=== PATIENT | male | born 1940 | race Caucasian/White ===

== ENCOUNTER 2016-09-06 13:07 | Inpatient (IN) | payer BC, OTHER ==
[2016-09-06 13:19] VITALS: BMI 28.3
[2016-09-06] MEDS ORDERED: ASPIRIN 81 MG CHEWABLE TABLETS PO ONE (13:33)
[2016-09-06 14:14] LABS: BASOPHIL 0.6 % (0-2.0); MCH 26.2 pg (25.7-33.7); MCHC 31.6 g/dl (32.0-35.9); MEAN CELL VOLUME 82.9 fl (80-96); MEAN PLT VOLUME 8.8 fl (7.5-11.1); NEUTROPHILS 76.8 % (42.8-82.8); PLATELET COUNT 277 K/MM3 (134-434); RDW 17.6 % (11.9-15.9); WHITE BLOOD COUNT 10.2 K/mm3 (4.0-10.0)
[2016-09-06] MEDS ORDERED: ONDANSETRON 4 MG/2 ML VIAL ONE (14:24)
[2016-09-06] MEDS ORDERED: ONDANSETRON 4 MG/2 ML VIAL IVPUSH ONE (14:28)
[2016-09-06 14:43] LABS: INR 2.44 (0.82-1.09); PROTHROMBIN TIME (PATIENT) 27.3 SEC (9.98-11.88)
--- NOTE | 2016-09-06 14:45 | PDOC ---
History of Present Illness - General History Source: Patient, Significant Other Exam Limitations: No Limitations - History of Present Illness Initial Comments: 09/06/16 14:59 The patient is a 76 year old male, with significant past medical history of IDDM , HTN, COPD, Afib (on coumadin), CAD s/p CABG, PAD, end- stage CHF s/p ICD placement (on milrinone pump) , who presents today complaining of SOB, abdominal pain, nausea, and dizziness. The patient had 4 episodes of vomiting while having a workup in Dr. Najera office this morning. He reports abdominal pain that is constant. His last meal was breakfast and tea and felt normal until he arrived to the doctors office. The patients primary is out of office , so his brought him to the emergency room. Denies fever, chills. Denies chest pain, SOB. Allergies: Shellfish Surgical Hx: gallbladder, hernia PCP- [employer] 2Nd Shift: Dr. Garner <Cara Faust - Last Filed: 09/06/16 17:54> - General History Source: Patient Exam Limitations: No Limitations <Nita Cheatham - Last Filed: 09/07/16 12:11> - General Chief Complaint: Nausea/Vomiting Stated Complaint: SOB, VOMITING (CARDIAC) Time Seen by Provider: 09/06/16 13:24 Past History <Cara Faust - Last Filed: 09/06/16 17:54> - Past Medical History Anemia: Yes Asthma: No Cancer: No Cardiac Disorders: Yes (CHF, [place] 2010,defibrilator placement,PACEMAKER) CVA: No COPD: Yes CHF: Yes Dementia: No Diabetes: Yes GI Disorders: No Disorders: Yes (bph) HTN: Yes Hypercholesterolemia: Yes Liver Disease: No Suicide Attempt (Hx): No Seizures: No Thyroid Disease: No - Surgical History Abdominal Surgery: Yes (HERNIA REPAIR 2002) Appendectomy: No Cardiac Surgery: Yes (2 OPEN HEART SURGERIES; TRACH PLACEMENT,PACEMAKER PLACED ) Cholecystectomy: Yes Lung Surgery: No Neurologic Surgery: No Orthopedic Surgery: No - Immunization History Td Vaccination: Yes TDAP Vaccination: Yes Immunization Up to Date: Yes - Psycho/Social/Smoking Cessation Hx Anxiety: No Suicidal Ideation: No Smoking Status: No Smoking History: Former smoker Years of Tobacco Use: 40 Have you smoked in the past 12 months: No Number of Cigarettes Smoked Daily: 40 If you are a former smoker, when did you quit?: 2010 Cigars Per Day: 0 Information on smoking cessation initiated: No 'Breaking Loose' booklet given: 02/06/12 Hx Alcohol Use: No Drug/Substance Use Hx: No Substance Use Type: None Hx Substance Use Treatment: No <LindenNita - Last Filed: 09/07/16 12:11> - Past Medical History Allergies/Adverse Reactions: Allergies Allergy/AdvReac Type Severity Reaction Status Date / Time No Known Drug Allergies Allergy Verified 09/06/16 14:19 shellfish derived Allergy Verified 09/06/16 14:19 Home Medications: Ambulatory Orders Allopurinol [Zyloprim -] 100 mg PO DAILY 09/10/15 Atorvastatin Ca [Lipitor] 40 mg PO HS 09/10/15 Carvedilol 6.25 mg PO BID 09/10/15 Docusate Sodium [Colace -] 100 mg PO BID 09/10/15 Insulin NPL/Insulin Lispro [Humalog Mix 75-25 Vial] 0 unit SQ PRN 09/10/15 Milrinone Lactate/D5w [Milrinone 0.2 mg/ml in D5w] 0 mg IV DAILY 09/10/15 Ranitidine [Zantac -] 75 mg PO DAILY 09/10/15 Torsemide 40 mg PO BID 09/10/15 Albuterol 0.083% Nebulizer Jewell [Ventolin 0.083% Nebulizer Soln -] 1 amp NEB Q6H PRN #120 amp 09/14/15 Nebulizer [Compact Compressor Nebulizer] 1 each MC TID 04/15/16 Acetaminophen [Tylenol .Regular Strength -] 650 mg PO Q6H PRN #0 tablet Ferrous Sulfate [Feosol] 325 mg PO Q48H ud 04/23/16 Potassium Chloride [K-Dur -] 20 meq PO TID #90 tablet.er 04/23/16 Warfarin Na [Coumadin -] 4 mg PO DAILY@1800 09/06/16 Review of Systems - Review of Systems Able to Perform ROS?: Yes Comments:: 09/06/16 15:00 GENERAL/CONSTITUTIONAL: No: fever, chills, weakness, loss of appetite. HEAD, EYES, EARS, NOSE AND THROAT: No: change in vision, ear pain, discharge, sore throat, throat swelling. CARDIOVASCULAR: No: chest pain, lightheadedness, palpitations, syncope RESPIRATORY: No: cough, shortness of breath, wheezing, hemoptysis, stridor. GASTROINTESTINAL: Yes: nausea, vomiting, abdominal pain. No: abdominal cramping , diarrhea, rectal bleeding, constipation. GENITOURINARY: No: dysuria, hematuria, frequency, urgency, flank pain. MUSCULOSKELETAL: No: back pain, neck pain, joint pain, muscle swelling or pain SKIN: No: lesions, pallor, rash or easy bruising. NEUROLOGIC: No: headache, vertigo, paresthesias, weakness ENDOCRINE: No: unexplained weight gain or loss HEMATOLOGIC/LYMPHATIC: No: anemia, easy bleeding, swelling nodes <Cara Faust - Last Filed: 09/06/16 17:54> *Physical Exam - Vital Signs Last Vital Signs Temp Pulse Resp BP Pulse Ox 78 18 104/64 94 L 09/06/16 13:15 09/06/16 13:15 09/06/16 13:15 09/06/16 13:15 - Physical Exam Comments: 09/06/16 15:00 GENERAL: Patient looks uncomfortable. Difficulty laying flat. The patient is in no acute distress. HEAD: Normal with no signs of trauma. EYES: PERRLA, EOMI, sclera anicteric, conjunctiva clear. ENT: Ears normal, nares patent, oropharynx clear without exudates. Moist mucous membranes. NECK: Normal range of motion, supple without lymphadenopathy, JVD, or masses. LUNGS: Breath sounds equal, clear to auscultation bilaterally. No wheezes, and no crackles. HEART:Regular rate and rhythm, normal S1 and S2 without murmur, rub or gallop. ABDOMEN: +Multiple well healed scars on abdomen. Abdominal distention ( according to his ). Epigastric and suprapubic tenderness on palpation. Soft , normoactive bowel sounds. No guarding, no rebound. EXTREMITIES: Normal range of motion, no edema. No clubbing or cyanosis. No erythema, or tenderness. NEUROLOGICAL: Cranial nerves II through XII grossly intact. Normal speech. No focal neurological deficits. MUSCULOSKELETAL: Back nontender to palpation, no CVA tenderness SKIN: Warm, Dry, normal turgor, no rashes or lesions noted. <Cara Faust - Last Filed: 09/06/16 17:54> - Vital Signs Last Vital Signs Temp Pulse Resp BP Pulse Ox 78 18 104/64 94 L 09/06/16 13:15 09/06/16 13:15 09/06/16 13:15 09/06/16 13:15 <Nita Cheatham - Last Filed: 09/07/16 12:11> Heart Score/ECG Review #1 ECG reviewed & interpreted by me at: 15:09 09/06/16 15:09 V-paced at 75bpm <Nita Cheatham - Last Filed: 09/07/16 12:11> ED Treatment Course - LABORATORY CBC & Chemistry Diagram: 09/06/16 14:00 09/06/16 14:00 - ADDITIONAL ORDERS Additional order review: Laboratory Results 09/06/16 09/06/16 14:00 13:50 INR 2.44 H D Lipase 186 09/06/16 14:00 RBC 5.15 MCV 82.9 MCHC 31.6 L RDW 17.6 H MPV 8.8 Neutrophils % 76.8 Lymphocytes % 12.1 Monocytes % 9.5 Eosinophils % 1.0 Basophils % 0.6 - RADIOLOGY Radiograph Interpretation: 09/06/16 15:08 EXAM#: TYPE/EXAM: RESULT: [id number] RAD/CHEST X-RAY PORTABLE* Chest pain. Evaluate for infiltrates. Status post cardiothoracic surgery, replacement of the cardiac valve. Cardiomegaly. Uncoiled thoracic aorta. The lung apices obscured by the soft tissues of the neck. Left pacemaker with 2 intact leads. Right vascular catheter in place. No evidence of pneumothorax. Vascular congestion. Clinically correlate for congestive heart failure. Impression. Vascular congestion. Clinically correlate for CHF. No evidence of pneumothorax. Limited evaluation of the lung parenchyma in the left retrocardiac region. Reported By: Gagan Huber MD 09/06/16 [id number] EXAM#: TYPE/EXAM: RESULT: [id number] CT/ABDOMEN PELVIS CT W/O CONTR Epigastric and periumbilical pain CT scan of the abdomen pelvis without oral and intravenous contrast Coronal and sagittal reformatted images were obtained Compared to prior CT scan of the chest dated 06/07/2013 There are bibasal atelectatic changes and interstitial thickening. Mild cardiomegaly is present. A small hiatus hernia is present. The stomach is partially distended without thickening of its wall. Evaluation of the liver, spleen and both adrenal glands appear unremarkable. Both kidneys are within normal limits in size with a partially exophytic cyst in midportion of the right kidney, posteriorly measuring 2.2 cm and mild deformity of the left renal lateral contour measuring 1.7 cm for which further evaluation with renal ultrasound is needed to rule out a cystic versus solid lesion. Gallbladder is not visualized. The pancreas is within normal limits in size. There is a focal low-attenuation density in the pancreatic body measuring 9 mm for which further evaluation is needed. There is no evidence of small bowel obstruction or enlarged retroperitoneal lymph nodes. No free fluid or free air in the abdomen and pelvis. Normal stool burden in the colon without wall thickening areas moderate distention of the urinary bladder with a lobulated contour and suggestion of a large diverticulum on the right side measuring 11 x 7 cm and a smaller one on the left measuring 4.3 cm. Normal size prostate gland with benign-appearing calcifications. Perirectal and pericecal fat is clear. The appendix is not definitely identified. Small calcified plaques in the abdominal aorta down through its bifurcation. Grade 1 anterolisthesis of L5 over S1 with degenerative vacuum phenomena. Impression: Right renal cyst seen on prior renal ultrasound dated 11/01/2012. Deformity of the left renal lateral contour for which further evaluation with ultrasound is needed to assess for a cystic versus solid lesion. 9 mm low-attenuation density in the pancreatic body that was possibly partially included on prior CT scan of the chest dated 06/07/2013. Correlation with MRI of the pancreas is needed to assess for a cystic versus solid lesion. Moderately distended urinary bladder with suggestion of large diverticula Otherwise, no CT evidence of an acute process in the abdomen and pelvis. Reported By: Dk Collazo MD 09/06/16 3645 - Medications Given in the ED: ED Medications Discontinued Medications Generic Name Dose Route Start Last Admin Trade Name Freq PRN Reason Stop Dose Admin Aspirin 162 mg 09/06/16 13:33 09/06/16 14:27 Asa - PO 09/06/16 13:34 Not Given ONCE ONE Ondansetron HCl 4 mg 09/06/16 14:28 09/06/16 14:28 Zofran Injection IVPUSH 09/06/16 14:29 4 mg NOW ONE Administration <Cara Faust - Last Filed: 09/06/16 17:54> - LABORATORY CBC & Chemistry Diagram: 09/07/16 05:35 09/07/16 05:35 - ADDITIONAL ORDERS Additional order review: 09/06/16 14:00 RBC 5.15 MCV 82.9 MCHC 31.6 L RDW 17.6 H MPV 8.8 Neutrophils % 76.8 Lymphocytes % 12.1 Monocytes % 9.5 Eosinophils % 1.0 Basophils % 0.6 - RADIOLOGY Radiology Studies Ordered: Category Date Time Status CHEST X-RAY PORTABLE* [RAD] Stat Radiology 09/06/16 13:34 Completed - Medications Given in the ED: ED Medications Discontinued Medications Generic Name Dose Route Start Last Admin Trade Name Freq PRN Reason Stop Dose Admin Aspirin 162 mg 09/06/16 13:33 09/06/16 14:27 Asa - PO 09/06/16 13:34 Not Given ONCE ONE Ondansetron HCl 4 mg 09/06/16 14:28 09/06/16 14:28 Zofran Injection IVPUSH 09/06/16 14:29 4 mg NOW ONE Administration <Nita Cheatham - Last Filed: 09/07/16 12:11> Medical Decision Making - Medical Decision Making 09/06/16 14:44 A portion of this note was documented by scribe services under my direction. I have reviewed the details of the note, within reason, and agree with the documentation with the following case summary and management plan written by me. Nursing documentation reviewed and incorporated into medical decision making This pt is a 76 yo M h/o IDDM, HTN, COPD, Afib (on coumadin), CAD s/p CABG, PAD , end- stage CHF s/p ICD placement (on milrinone pump) , who presents today complaining of SOB, abdominal pain, nausea, and dizziness. Repeated episodes of vomiting and diarrhea He reports abdominal pain that is constant, located in the middle of the abdomen. 09/06/16 16:43 Laboratory Tests 04/25/16 04/25/16 09/06/16 05:48 05:48 13:50 WBC 7.8 Hgb 11.9 Hct 37.3 Plt Count 194 INR 1.74 H Sodium Potassium Chloride Carbon Dioxide BUN Creatinine Random Glucose Creatine Kinase Troponin I Lipase 186 09/06/16 09/06/16 09/06/16 14:00 14:00 14:00 WBC 10.2 H D Hgb 13.5 D Hct 42.7 Plt Count 277 D INR 2.44 H D Sodium 140 Potassium 3.2 L Chloride 96 L Carbon Dioxide 37 H BUN 68 H D Creatinine 2.6 H D Random Glucose 123 H D Creatine Kinase 57 Troponin I 0.03 Lipase 09/06/16 16:55 Labs demonstrate renal insufficiency CT pending Will hold on aggressive hydration (As pt CXR demonstrates CHF)\ 09/06/16 17:31 CT of the abdomen and pelvis: 09/06/16 17:34 Small hiatal hernia Exophytic cyst in the midportion of the right kidney, mild deformity of the left kidney, patient is an ultrasound. Patient is within normal limits. Low attenuation density in the pancreatic body measuring 9 mm no evidence of SBO. Normal stool burning bladder is lobulated suggestive of a large diverticulum. Patient seen in the ER by Dr. Downey. Will admit to telemetry. <Nita Cheatham - Last Filed: 09/07/16 12:11> *DC/Admit/Observation/Transfer - Attestations Scribe Attestion: 09/06/16 15:00 Documentation prepared by RUFINA Coburn, acting as medical recruiter for Nita Cheatham MD. <Cara Faust - Last Filed: 09/06/16 17:54> - Discharge Dispostion Admit: Yes <Nita Cheatham - Last Filed: 09/07/16 12:11> Diagnosis at time of Disposition: Renal insufficiency Vomiting Qualifiers: Vomiting type: unspecified Vomiting Intractability: non-intractable Nausea presence: with nausea Qualified Code(s): R11.2 - Nausea with vomiting, unspecified - Discharge Dispostion Condition at time of disposition: Stable - Referrals
[2016-09-06 14:58] LABS: ALBUMIN 3.7 g/dl (3.4-5.0); CALCIUM 9.4 mg/dL (8.5-10.1); CREATININE 2.6 mg/dL (0.7-1.3); MAGNESIUM 2.8 mg/dL (1.8-2.4)
[2016-09-06 15:02] LABS: BILIRUBIN,TOTAL 0.7 mg/dL (0.2-1.0); TOT PROT 8.3 g/dl (6.4-8.2); TROPONIN I 0.03 ng/ml (0.00-0.05)
--- NOTE | 2016-09-06 18:21 | EKG ---
Test Reason : Blood Pressure : / mmHG Vent. Rate : 075 BPM Atrial Rate : 072 BPM P-R Int : 000 ms QRS Dur : 190 ms QT Int : 528 ms P-R-T Axes : 000 254 047 degrees QTc Int : 589 ms Ventricular-paced rhythm ABNORMAL ECG WHEN COMPARED WITH ECG OF 15-APR-2016 13:51, NO SIGNIFICANT CHANGE WAS FOUND Confirmed by MONA OVALLES MD ([id number]) on 09/06/2016 6:20:38 PM Referred By: Confirmed By:MONA OVALLES MD
[2016-09-06] MEDS ORDERED: ACETAMINOPHEN 325 MG TABLET (FP) PO PRN (19:10)
[2016-09-06] MEDS ORDERED: ONDANSETRON 4 MG/2 ML VIAL IVPB PRN (19:19)
--- NOTE | 2016-09-06 19:29 | HP ---
Admitting History and Physical - Admission Chief Complaint: nausea, vomiting - Past Medical History Cardiovascular: Yes: AFIB, CAD, CHF, HTN, Hyperlipdemia, [place], Pulmonary Hypertension, Other (AICD placed) Pulmonary: Yes: COPD, O2 Dependent Renal/: Yes: Renal Inusuff, BPH Endocrine: Yes: Diabetes Mellitus - Past Surgical History Past Surgical History: Yes: AICD, CABG, Hernia Repair - Smoking History Smoking history: Former smoker Have you smoked in the past 12 months: No Aproximately how many cigarettes per day: 40 If you are a former smoker, when did you quit?: 2010 - Alcohol/Substance Use Hx Alcohol Use: No - Social History ADL: Independent History of Recent Travel: No Home Medications - Allergies Allergies/Adverse Reactions: Allergies Allergy/AdvReac Type Severity Reaction Status Date / Time No Known Drug Allergies Allergy Verified 09/06/16 14: shellfish derived Allergy Verified 09/06/16 14:19 - Home Medications Home Medications: Ambulatory Orders Allopurinol [Zyloprim -] 100 mg PO DAILY 09/10/15 Atorvastatin Ca [Lipitor] 40 mg PO HS 09/10/15 Carvedilol 6.25 mg PO BID 09/10/15 Docusate Sodium [Colace -] 100 mg PO BID 09/10/15 Insulin NPL/Insulin Lispro [Humalog Mix 75-25 Vial] 0 unit SQ PRN 09/10/15 Milrinone Lactate/D5w [Milrinone 0.2 mg/ml in D5w] 0 mg IV DAILY 09/10/15 Ranitidine [Zantac -] 75 mg PO DAILY 09/10/15 Torsemide 40 mg PO BID 09/10/15 Albuterol 0.083% Nebulizer Jewell [Ventolin 0.083% Nebulizer Soln -] 1 amp NEB Q6H PRN #120 amp 09/14/15 Nebulizer [Compact Compressor Nebulizer] 1 each MC TID 04/15/16 Acetaminophen [Tylenol .Regular Strength -] 650 mg PO Q6H PRN #0 tablet Ferrous Sulfate [Feosol] 325 mg PO Q48H ud 04/23/16 Potassium Chloride [K-Dur -] 20 meq PO TID #90 tablet.er 04/23/16 Warfarin Na [Coumadin -] 4 mg PO DAILY@1800 09/06/16 Family Disease History - Family Disease History Family Disease History: Diabetes: Father, Heart Disease: Father Physical Examination Vital Signs: Vital Signs Temperature 97.9 F 09/06/16 19:17 Pulse Rate 75 09/06/16 19:17 Respiratory Rate 18 09/06/16 19:17 Blood Pressure 98/57 09/06/16 19:17 O2 Sat by Pulse Oximetry (%) 96 09/06/16 19:17
[2016-09-06] MEDS ORDERED: D5W IV SCH (19:30)
[2016-09-06] MEDS ORDERED: [UNRECOGNIZED DRUG - OTHER] IV SCH (19:30)
[2016-09-06] MEDS ORDERED: MILRINONE LACTATE IV SCH (19:30)
[2016-09-06] MEDS: ATORVASTATIN CA 40 MG TABLET (FP) PO SCH (21:51)
[2016-09-06] MEDS: DOCUSATE SODIUM 100 MG CAPSULE (FP) PO SCH (21:51)
[2016-09-06] MEDS: POTASSIUM CHLORIDE TABS 20 MEQ TABLET.ER (FP) PO SCH (21:52)
[2016-09-06] MEDS: CARVEDILOL 6.25 MG TABLET (FP) PO SCH (21:52)
[2016-09-06] MEDS ORDERED: WARFARIN NA 2 MG TABLET (UD) PO ONE (22:16)
--- NOTE | 2016-09-06 22:25 | HP ---
Admitting History and Physical - Admission Chief Complaint: N/V, abd pain History of Present Illness: 76 yo male, h/o end-stage CHF, on milrinone pump, presents to hospital with nausea and vomiting which began earlier today. Havign abdominal pain as well. Patient was feeling well this morning upon awakening. No diarrhea recently. Went to routine appt at package reins[facility] office, where e became ill, vomiting multiple times, where abd pain began. Currently feeling a little better, no pain now. Had CT scan, which did not show any acute abd process present. no fevers noted. History Source: Patient, Family Member, Medical Record Limitations to Obtaining History: No Limitations - Past Medical History Cardiovascular: Yes: AFIB, CAD, CHF, HTN, Hyperlipdemia, [place], Pulmonary Hypertension, Other (AICD placed) Pulmonary: Yes: COPD, O2 Dependent Renal/: Yes: Renal Inusuff, BPH Endocrine: Yes: Diabetes Mellitus - Past Surgical History Past Surgical History: Yes: AICD, CABG, Hernia Repair - Smoking History Smoking history: Former smoker Have you smoked in the past 12 months: No Aproximately how many cigarettes per day: 40 If you are a former smoker, when did you quit?: 2010 - Alcohol/Substance Use Hx Alcohol Use: No - Social History ADL: Independent History of Recent Travel: No Home Medications - Allergies Allergies/Adverse Reactions: Allergies Allergy/AdvReac Type Severity Reaction Status Date / Time No Known Drug Allergies Allergy Verified 09/06/16 14:19 shellfish derived Allergy Verified 09/06/16 14:19 - Home Medications Home Medications: Ambulatory Orders Allopurinol [Zyloprim -] 100 mg PO DAILY 09/10/15 Atorvastatin Ca [Lipitor] 40 mg PO HS 09/10/15 Carvedilol 6.25 mg PO BID 09/10/15 Docusate Sodium [Colace -] 100 mg PO BID 09/10/15 Insulin NPL/Insulin Lispro [Humalog Mix 75-25 Vial] 0 unit SQ PRN 09/10/15 Milrinone Lactate/D5w [Milrinone 0.2 mg/ml in D5w] 0 mg IV DAILY 09/10/15 Ranitidine [Zantac -] 75 mg PO DAILY 09/10/15 Torsemide 40 mg PO BID 09/10/15 Albuterol 0.083% Nebulizer Jewell [Ventolin 0.083% Nebulizer Soln -] 1 amp NEB Q6H PRN #120 amp 09/14/15 Nebulizer [Compact Compressor Nebulizer] 1 each MC TID 04/15/16 Acetaminophen [Tylenol .Regular Strength -] 650 mg PO Q6H PRN #0 tablet Ferrous Sulfate [Feosol] 325 mg PO Q48H ud 04/23/16 Potassium Chloride [K-Dur -] 20 meq PO TID #90 tablet.er 04/23/16 Warfarin Na [Coumadin -] 4 mg PO DAILY@1800 09/06/16 Family Disease History - Family Disease History Family Disease History: Diabetes: Father, Heart Disease: Father Review of Systems - Review of Systems Constitutional: denies: Fever, Loss of Appetite, Unintentional Wgt. Loss Eyes: reports: No Symptoms HENT: denies: Difficult Swallowing, Throat Pain Neck: denies: Decreased ROM, Tenderness Cardiovascular: reports: Shortness of Breath ((baseline FREIRE)). denies: Chest Pain Respiratory: denies: Cough, Wheezing Gastrointestinal: denies: Constipation, Diarrhea Genitourinary: denies: Burning, Discharge, Dysuria Musculoskeletal: denies: Back Pain Integumentary: reports: Other (recent cellulitis treatment of legs) Physical Examination Vital Signs: Vital Signs Temperature 96.6 F L 09/06/16 21:14 Pulse Rate 75 09/06/16 21:14 Respiratory Rate 20 09/06/16 21:14 Blood Pressure 109/59 09/06/16 21:14 O2 Sat by Pulse Oximetry (%) 96 09/06/16 19:17 Constitutional: Yes: Well Nourished, No Distress, Calm Eyes: Yes: Conjunctiva Clear, EOM Intact, PERRL HENT: Yes: Atraumatic, Normocephalic Neck: Yes: Supple, Trachea Midline Cardiovascular: Yes: Regular Rate and Rhythm, S1, S2 Respiratory: Yes: Regular, Diminished (at bases) Gastrointestinal: Yes: Normal Bowel Sounds, Soft. No: Tenderness Edema: Yes Edema: LLE: Trace, RLE: Trace Neurological: Yes: Alert, Oriented Labs: Laboratory Tests 09/06/16 09/06/16 09/06/16 13:50 14:00 14:00 WBC 10.2 H D RBC 5.15 Hgb 13.5 D Hct 42.7 MCV 82.9 MCHC 31.6 L RDW 17.6 H Plt Count 277 D MPV 8.8 Neutrophils % 76.8 Lymphocytes % 12.1 Monocytes % 9.5 Eosinophils % 1.0 Basophils % 0.6 INR 2.44 H D Sodium Potassium Chloride Carbon Dioxide Anion Gap BUN Creatinine Creat Clearance w eGFR Random Glucose Calcium Magnesium Total Bilirubin AST ALT Alkaline Phosphatase Creatine Kinase Troponin I Total Protein Albumin Lipase 186 09/06/16 14:00 WBC RBC Hgb Hct MCV MCHC RDW Plt Count MPV Neutrophils % Lymphocytes % Monocytes % Eosinophils % Basophils % INR Sodium 140 Potassium 3.2 L Chloride 96 L Carbon Dioxide 37 H Anion Gap 7 L BUN 68 H D Creatinine 2.6 H D Creat Clearance w eGFR 23.99 Random Glucose 123 H D Calcium 9.4 Magnesium 2.8 H D Total Bilirubin 0.7 AST 19 D ALT 15 Alkaline Phosphatase 148 H D Creatine Kinase 57 Troponin I 0.03 Total Protein 8.3 H Albumin 3.7 Lipase Imaging - Results Chest X-ray: Report Reviewed (congestive changes) Cat Scan: Report Reviewed (abd/pelv: no colitis or acute intestinal process noted -renal cysts seen, pancreatic density seen) Problem List - Problems (1) Vomiting Assessment/Plan: -gastoenteritis? -zofran prn, clear liquid diet (no abd pain now) Code(s): R11.10 - VOMITING, UNSPECIFIED Qualifiers: Vomiting type: unspecified Vomiting Intractability: non-intractable Nausea presence: with nausea Qualified Code(s): R11.2 - Nausea with vomiting, unspecified (2) Acute on chronic renal insufficiency Assessment/Plan: -difficult to give IV fluids due to end-stage cardiomyopathy -will hold torsemide for a few doses, renal consult Code(s): N28.9 - DISORDER OF KIDNEY AND URETER, UNSPECIFIED N18.9 - CHRONIC KIDNEY DISEASE, UNSPECIFIED (3) Atrial fibrillation Assessment/Plan: -cont coumadin (INR therapeutic) Code(s): I48.91 - UNSPECIFIED ATRIAL FIBRILLATION Qualifiers: Atrial fibrillation type: chronic Qualified Code(s): I48.2 - Chronic atrial fibrillation (4) Cardiomyopathy Assessment/Plan: -cont milrinone pump Code(s): I42.9 - CARDIOMYOPATHY, UNSPECIFIED (5) Chronic kidney disease (CKD) stage G3a/A3, moderately decreased glomerular filtration rate (GFR) between 45-59 mL/min/1.73 square meter and albuminuria creatinine ratio greater than 300 mg/g Assessment/Plan: Usual Cr approx. 2.0 Code(s): N18.3 - CHRONIC KIDNEY DISEASE, STAGE 3 (MODERATE)
[2016-09-06] MEDS: MILRINONE 20MG/100ML IVPB - 100 ML IVPB SCH (22:39)
[2016-09-07] MEDS: TORSEMIDE 20 MG TABLET (FP) PO SCH ×2 (06:13→13:58)
[2016-09-07] MEDS: POTASSIUM CHLORIDE TABS 20 MEQ TABLET.ER (FP) PO SCH ×3 (06:14→22:55)
[2016-09-07 07:26] LABS: BASOPHIL 0.5 % (0-2.0); MCH 26.7 pg (25.7-33.7); MCHC 32.2 g/dl (32.0-35.9); MEAN CELL VOLUME 82.9 fl (80-96); NEUTROPHILS 67.4 % (42.8-82.8); PLATELET COUNT 235 K/MM3 (134-434); RDW 17.2 % (11.9-15.9)
[2016-09-07 07:47] LABS: INR 2.81 (0.82-1.09); PROTHROMBIN TIME (PATIENT) 31.6 SEC (9.98-11.88)
[2016-09-07 08:13] LABS: ALBUMIN 3.4 g/dl (3.4-5.0); CALCIUM 8.9 mg/dL (8.5-10.1)
[2016-09-07 08:15] LABS: BILIRUBIN,TOTAL 0.6 mg/dL (0.2-1.0); CREATININE 2.5 mg/dL (0.7-1.3); TOT PROT 7.3 g/dl (6.4-8.2)
[2016-09-07] MEDS: MILRINONE 20MG/100ML IVPB - 100 ML IVPB SCH ×2 (09:28→21:00)
[2016-09-07] MEDS: RANITIDINE HCL 150 MG TABLET (FP) PO SCH (09:29)
[2016-09-07] MEDS: DOCUSATE SODIUM 100 MG CAPSULE (FP) PO SCH ×2 (09:29→22:55)
[2016-09-07] MEDS: CARVEDILOL 6.25 MG TABLET (FP) PO SCH ×2 (09:29→22:55)
[2016-09-07] MEDS ORDERED: FERROUS SO4 325 MG TABLET (FP) PO SCH (10:00)
--- NOTE | 2016-09-07 10:05 | PN ---
Progress Note, Physician Chief Complaint: Mr Perez says he is feeling better today. Nausea/vomiting and pain resolved. No cp or sob. - Current Medication List Current Medications: Active Medications Acetaminophen (Tylenol -) 650 mg PO Q6H PRN PRN Reason: FEVER OR PAIN Albuterol Sulfate (Ventolin 0.083% Nebulizer Soln -) 1 amp NEB Q6H PRN PRN Reason: SHORT OF BREATH/WHEEZING Atorvastatin Calcium (Lipitor -) 40 mg PO HS [facility] Last Admin: 09/06/16 21:51 Dose: 40 mg Carvedilol (Coreg -) 6.25 mg PO BID [facility] Last Admin: 09/07/16 09:29 Dose: 6.25 mg Docusate Sodium (Colace -) 100 mg PO BID [facility] Last Admin: 09/07/16 09:29 Dose: 100 mg Ferrous Sulfate (Feosol -) 325 mg PO Q48H [facility] Last Admin: 09/07/16 09:30 Dose: 325 mg Milrinone Lactate/Dextrose (Milrinone 20mg/100ml Ivpb -) 100 mls @ 9.954 mls/ hr IVPB TITR [facility]; 0.35 MCG/KG/MIN PRN Reason: Protocol Last Admin: 09/07/16 09:28 Dose: 10.2 mls/hr Ondansetron HCl (Zofran Injection) 4 mg IVPB Q6H PRN PRN Reason: NAUSEA Potassium Chloride (K-Dur -) 20 meq PO TID [facility] Last Admin: 09/07/16 06:14 Dose: 20 meq Ranitidine HCl (Zantac -) 75 mg PO DAILY [facility] Last Admin: 09/07/16 09:29 Dose: 75 mg Torsemide (Demadex -) 40 mg PO BIDLASIX [facility] Last Admin: 09/07/16 06:13 Dose: 40 mg Warfarin Sodium (Coumadin -) 4 mg PO DAILY@1800 [facility] - Objective Vital Signs: Vital Signs Temperature 97.0 F L 09/07/16 08:02 Pulse Rate 75 09/07/16 08:02 Respiratory Rate 20 09/07/16 08:02 Blood Pressure 110/58 09/07/16 08:02 O2 Sat by Pulse Oximetry (%) 96 09/06/16 21:00 Constitutional: Yes: Well Nourished, No Distress, Calm Cardiovascular: Yes: Regular Rate and Rhythm. No: Gallop, Murmur, Rub Respiratory: Yes: Regular, CTA Bilaterally. No: Rales, Rhonchi, Wheezes Gastrointestinal: Yes: Normal Bowel Sounds, Soft. No: Distention, Tenderness Extremities: Yes: WNL Edema: No Labs: CBC, BMP 09/07/16 05:35 09/07/16 05:35 INR, PTT INR 2.81 (0.82-1.09) H 09/07/16 05:35 Problem List - Problems (1) Gastroenteritis Assessment/Plan: -resolved -suspect viral or other non-specific pathology -will advance diet and see if can tolerate -possible discharge today or early tomorrow pending consultants recommendations Code(s): K52.9 - NONINFECTIVE GASTROENTERITIS AND COLITIS, UNSPECIFIED (2) CKD (chronic kidney disease) Assessment/Plan: -nephrology consulted -creatinine increased since last admission, but unsure of outpatient measurements -will d/w nephrology Code(s): N18.9 - CHRONIC KIDNEY DISEASE, UNSPECIFIED Qualifiers: Chronic kidney disease stage: unspecified stage Qualified Code(s): N18.9 - Chronic kidney disease, unspecified (3) AICD (automatic cardioverter/defibrillator) present Assessment/Plan: -not firing, no problems Code(s): Z95.810 - PRESENCE OF AUTOMATIC (IMPLANTABLE) CARDIAC DEFIBRILLATOR (4) CHF (congestive heart failure) Assessment/Plan: -continue milrinone gtt Code(s): I50.9 - HEART FAILURE, UNSPECIFIED Qualifiers: Congestive heart failure type: systolic Congestive heart failure chronicity: chronic Qualified Code(s): I50.22 - Chronic systolic (congestive ) heart failure (5) Renal mass Assessment/Plan: -seen on CT scan -will obtain renal ultrasound to further evaluate Code(s): N28.89 - OTHER SPECIFIED DISORDERS OF KIDNEY AND URETER (6) Pancreatic mass Assessment/Plan: -seen on CT scan -appears to been seen on previous CT scan of chest, but size not characterized -unsure if growing -cannot obtain MRCP secondary to AICD or CT scan with contrast -since small, will set up outpatient GI consult for EUS Code(s): K86.9 - DISEASE OF PANCREAS, UNSPECIFIED
--- NOTE | 2016-09-07 10:18 | CONSULT ---
Cardiology Consult (text) - Consultation Consultation Note: cc: n/v/abd pain hpi: 76 year old gentleman with PMH of IDDM, COPD (O2 dependant) HTN, HLD, Afib (on coumadin), CAD s/p CABG 2012, end stage CHF with ICD placement (on milrinone pump), PVD, BPH here with n/v/abd pain. Had been feeling well until yesterday when sitting in medical scientific officer's office for routine f/u and developed nausea and vomiting and abd pain. Brought to ER, thought to have gastroenteritis. Overnight sxs resolved and pt feels well now. No cp, sob, palps, dizzy, loc, pnd, orthopnea, le edema. Sees dr boyd for cardio. Past Medical History/Surg hx: per hpi, additionally hernia repair Soc hx: Former smoker, no etoh or illicits fam hx: brother with pvd ros: per hpi; no fever, cough, nasal congestion, rash, ricks, vision changes, wt loss, gib, hematuria meds: Medication Instructions Recorded Allopurinol [Zyloprim -] 100 mg PO DAILY 09/10/15 Atorvastatin Ca [Lipitor] 40 mg PO HS 09/10/15 Carvedilol 6.25 mg PO BID 09/10/15 Docusate Sodium [Colace -] 100 mg PO BID 09/10/15 Insulin NPL/Insulin Lispro 0 unit SQ PRN 09/10/15 [Humalog Mix 75-25 Vial] Milrinone Lactate/D5w [Milrinone 0 mg IV DAILY 09/10/15 0.2 mg/ml in D5w] Ranitidine [Zantac -] 75 mg PO DAILY 09/10/15 Torsemide 40 mg PO BID 09/10/15 Albuterol 0.083% Nebulizer Jewell 1 amp NEB Q6H PRN #120 amp 09/14/15 [Ventolin 0.083% Nebulizer Soln -] Nebulizer [Compact Compressor 1 each MC TID 04/15/16 Nebulizer] Acetaminophen [Tylenol .Regular 650 mg PO Q6H PRN #0 tablet 04/23/16 Strength -] Ferrous Sulfate [Feosol] 325 mg PO Q48H ud 04/23/16 Potassium Chloride [K-Dur -] 20 meq PO TID #90 tablet.er 04/23/16 Warfarin Na [Coumadin -] 4 mg PO DAILY@1800 09/06/16 pe: Vital Signs Period Temp Pulse Resp BP Sys/Orantes Pulse Ox Last 24 Hr 96 F-97.9 F 64-78 18-20 98-111/57-64 94-96 NAD, calm JVD flat, neck supple RRR nl s1, s2 no m/r/g. cta bl, nl effort + bs soft nd, nt no le e/c/c aaox3 pos pt dp, no carotid bruits no jaundice diaphoresis Laboratory Last Values WBC 8.0 K/mm3 (4.0-10.0) 09/07/16 05:35 RBC 4.67 M/mm3 (4.00-5.60) 09/07/16 05:35 Hgb 12.5 GM/dL (11.7-16.9) 09/07/16 05:35 Hct 38.8 % (35.4-49) 09/07/16 05:35 MCV 82.9 fl (80-96) 09/07/16 05:35 MCHC 32.2 g/dl (32.0-35.9) 09/07/16 05:35 RDW 17.2 % (11.9-15.9) H 09/07/16 05:35 Plt Count 235 K/MM3 (134-434) 09/07/16 05:35 MPV 9.0 fl (7.5-11.1) 09/07/16 05:35 Neutrophils % 67.4 % (42.8-82.8) 09/07/16 05:35 Lymphocytes % 19.1 % (8-40) D 09/07/16 05:35 Monocytes % 11.0 % (3.8-10.2) H 09/07/16 05:35 Eosinophils % 2.0 % (0-4.5) D 09/07/16 05:35 Basophils % 0.5 % (0-2.0) 09/07/16 05:35 INR 2.81 (0.82-1.09) H 09/07/16 05:35 Sodium 140 mmol/L (136-145) 09/07/16 05:35 Potassium 3.6 mmol/L (3.5-5.1) 09/07/16 05:35 Chloride 96 mmol/L (98-107) L 09/07/16 05:35 Carbon Dioxide 37 mmol/L (21-32) H 09/07/16 05:35 Anion Gap 7 (8-16) L 09/07/16 05:35 BUN 67 mg/dL (7-18) H 09/07/16 05:35 Creatinine 2.5 mg/dL (0.7-1.3) H 09/07/16 05:35 Creat Clearance w eGFR 25.10 (>60) 09/07/16 05:35 Random Glucose 120 mg/dL (74-106) H 09/07/16 05:35 Calcium 8.9 mg/dL (8.5-10.1) 09/07/16 05:35 Magnesium 2.8 mg/dL (1.8-2.4) H D 09/06/16 14:00 Total Bilirubin 0.6 mg/dL (0.2-1.0) 09/07/16 05:35 AST 15 U/L (15-37) D 09/07/16 05:35 ALT 13 U/L (12-78) 09/07/16 05:35 Alkaline Phosphatase 121 U/L (45-117) H 09/07/16 05:35 Creatine Kinase 57 IU/L (39-308) 09/06/16 14:00 Troponin I 0.03 ng/ml (0.00-0.05) 09/06/16 14:00 Total Protein 7.3 g/dl (6.4-8.2) 09/07/16 05:35 Albumin 3.4 g/dl (3.4-5.0) 09/07/16 05:35 Lipase 186 U/L (73-393) 09/06/16 13:50 ecg 09/06/16: intelligence officer basic echo 05/2016: sev lve, global hk, sev dec lvef, mild rve, nl rv fcn, estefania, mild- mod mr, mv ring, tv ring, mild tr, mild pr, mild phtn, ivc mild dil cxr: mild congestion (chronic finding) tele: intelligence officer basic a/p: 76 year old gentleman with PMH of IDDM, COPD (O2 dependant) HTN, HLD, Afib (on coumadin), CAD s/p CABG 2012, end stage CHF with ICD placement (on milrinone pump), PVD, BPH here with n/v/abd pain. n/v/abd pain: -no signs of cardiac etiology, no signs acs -possible viral gastroenteritis, sxs resolved now chronic end stage systolic heart failure s/p ICD, on home milrinone infusion: - dry wt approx 211 lbs, currently near this value - vol status seems stable, cont home torsemide 40 po bid as doing - cont milrinone at patient's home maintenance dose (on chronic infusion destination therapy)--0.35 mcg/kg/min. - cont home coreg - recent office icd check with stable function afib - currently rate controlled on coreg - cont coumadin dosing as doing (target INR 2-3) PVD - con't AC, statin. CAD s/p CABG - No anginal symptoms, no signs acs. Con't home ac, atorvastatin, coreg HTN: controlled on coreg HL: con't statin. CKD - slightly above baseline (baseline cr range here 1.9-2.2), possibly due to vomiting. improved today, cont to monitor, avoid ivfs given end stage CHF.
--- NOTE | 2016-09-07 11:03 | CONSULT ---
Consult - text type - Consultation Consultation Note: Renal Consult for JOHN on CKD This is a 76 year old Gentleman with PMHx of End-stage CHF on Mirinone Gtt, CKD Stage 4 (baseline Cr 2-2.2) who presented with Abd pain/N/V from his cardiologists office and found to gastroenteritis with JOHN with BUN/Cr of 68/ 2.6. Pt states that he feels much better today. No further nausea or vomiting. He is followed by Dr. Garner and is on Torsemide BID at home. He currently denies any sob, chest pain, or LE swelling. BP stable. Reports good urine output at home w/o retention. No rash or recent abx use. No nsaid use. PMhx: As above Allergies: NKDA Family hx: NC Social Hx: No T/A/D ROS: as per HPI, all other pertinent ros negative Home Meds: Medication Instructions Recorded Allopurinol [Zyloprim -] 100 mg PO DAILY 09/10/15 Atorvastatin Ca [Lipitor] 40 mg PO HS 09/10/15 Carvedilol 6.25 mg PO BID 09/10/15 Docusate Sodium [Colace -] 100 mg PO BID 09/10/15 Insulin NPL/Insulin Lispro 0 unit SQ PRN 09/10/15 [Humalog Mix 75-25 Vial] Milrinone Lactate/D5w [Milrinone 0 mg IV DAILY 09/10/15 0.2 mg/ml in D5w] Ranitidine [Zantac -] 75 mg PO DAILY 09/10/15 Torsemide 40 mg PO BID 09/10/15 Albuterol 0.083% Nebulizer Jewlel 1 amp NEB Q6H PRN #120 amp 09/14/15 [Ventolin 0.083% Nebulizer Soln -] Nebulizer [Compact Compressor 1 each MC TID 04/15/16 Nebulizer] Acetaminophen [Tylenol .Regular 650 mg PO Q6H PRN #0 tablet 04/23/16 Strength -] Ferrous Sulfate [Feosol] 325 mg PO Q48H ud 04/23/16 Potassium Chloride [K-Dur -] 20 meq PO TID #90 tablet.er 04/23/16 Warfarin Na [Coumadin -] 4 mg PO DAILY@1800 09/06/16 Vital Signs Temperature 97.0 F L 09/07/16 08:02 Pulse Rate 75 09/07/16 08:02 Respiratory Rate 20 09/07/16 08:02 Blood Pressure 110/58 09/07/16 08:02 O2 Sat by Pulse Oximetry (%) 96 09/06/16 21:00 Intake & Output 09/04/16 09/05/16 09/06/16 09/07/16 23:59 23:59 23:59 23:59 Intake Total 240 130 Balance 240 130 Weight 208 lb 208 lb 9.6 oz Gen: NAD awake and alert on NC HEENT: NC/AT, Dry MM, No JVD CVS: RRR, No M/R Lungs: DEc BS at lung bases but no rales Abd: soft NT/ND Ext: no edema, clubbing or cyanosis : No bladder distension Neuro: No focal defects CBC, BMP 09/07/16 05:35 09/07/16 05:35 Current Medications Acetaminophen (Tylenol -) 650 mg PO Q6H PRN PRN Reason: FEVER OR PAIN Albuterol Sulfate (Ventolin 0.083% Nebulizer Soln -) 1 amp NEB Q6H PRN PRN Reason: SHORT OF BREATH/WHEEZING Atorvastatin Calcium (Lipitor -) 40 mg PO HS [facility] Last Admin: 09/06/16 21:51 Dose: 40 mg Carvedilol (Coreg -) 6.25 mg PO BID [facility] Last Admin: 09/07/16 09:29 Dose: 6.25 mg Docusate Sodium (Colace -) 100 mg PO BID [facility] Last Admin: 09/07/16 09:29 Dose: 100 mg Ferrous Sulfate (Feosol -) 325 mg PO Q48H [facility] Last Admin: 09/07/16 09:30 Dose: 325 mg Milrinone Lactate/Dextrose (Milrinone 20mg/100ml Ivpb -) 100 mls @ 9.954 mls/ hr IVPB TITR [facility]; 0.35 MCG/KG/MIN PRN Reason: Protocol Last Admin: 09/07/16 09:28 Dose: 10.2 mls/hr Ondansetron HCl (Zofran Injection) 4 mg IVPB Q6H PRN PRN Reason: NAUSEA Potassium Chloride (K-Dur -) 20 meq PO TID [facility] Last Admin: 09/07/16 06:14 Dose: 20 meq Ranitidine HCl (Zantac -) 75 mg PO DAILY [facility] Last Admin: 09/07/16 09:29 Dose: 75 mg Torsemide (Demadex -) 40 mg PO BIDLASIX [facility] Last Admin: 09/07/16 06:13 Dose: 40 mg Warfarin Sodium (Coumadin -) 4 mg PO DAILY@1800 [facility] A/P 76 year old Gentleman with PMHx of End-stage CHF on Mirinone Gtt, CKD Stage 4 ( baseline Cr 2-2.2) who presented with Abd pain/N/V from his cardiologists office and found to gastroenteritis with JOHN with BUN/Cr of 68/2.6. #Acute on Chronic Renal Insufficiency Etiology likely mild intravascular depletion in setting of gastroenteritis and high dose diuretics (high BUN/cr ratio, Elevated serum Bicarb) Renal function stable over the past 24 hours Given history of end stage CHF would not downtitrate diuretics at this time Trend BUN/cr and electrolytes for now if renal function worsens would have to consider decreasing diuretics as pt appears evolemic at this time #Left Kidney Lesion seen on Ct of the Abd Agree with US to eval cystic vs solid lesion #Gastroenteritis continue supportive care #End stage CHF continue Milrinone and diuretics as per cardiology Thank you Will follow Jeyson Terry DO
[2016-09-07] MEDS: WARFARIN NA 2 MG TABLET (UD) PO SCH (17:12)
[2016-09-07] MEDS ORDERED: TORSEMIDE 20 MG TABLET (FP) PO SCH (22:00)
[2016-09-07] MEDS: ATORVASTATIN CA 40 MG TABLET (FP) PO SCH (22:55)
[2016-09-08] MEDS: TORSEMIDE 20 MG TABLET (FP) PO SCH ×2 (05:54→14:13)
[2016-09-08] MEDS: POTASSIUM CHLORIDE TABS 20 MEQ TABLET.ER (FP) PO SCH ×3 (05:54→21:29)
[2016-09-08] MEDS: MILRINONE 20MG/100ML IVPB - 100 ML IVPB SCH ×3 (05:55→21:29)
[2016-09-08 07:45] LABS: BASOPHIL 0.4 % (0-2.0); EOSINOPHIL 1.4 % (0-4.5); MCH 26.7 pg (25.7-33.7); MCHC 32.2 g/dl (32.0-35.9); MEAN PLT VOLUME 8.3 fl (7.5-11.1); PLATELET COUNT 211 K/MM3 (134-434); RDW 17.7 % (11.9-15.9); WHITE BLOOD COUNT 8.3 K/mm3 (4.0-10.0)
[2016-09-08 07:57] LABS: INR 3.48 (0.82-1.09); PROTHROMBIN TIME (PATIENT) 39.3 SEC (9.98-11.88)
[2016-09-08 08:19] LABS: CALCIUM 8.9 mg/dL (8.5-10.1); CREATININE 2.4 mg/dL (0.7-1.3); MAGNESIUM 2.7 mg/dL (1.8-2.4); PHOSPHOROUS 2.9 mg/dL (2.5-4.9)
--- NOTE | 2016-09-08 10:09 | PN ---
Progress Note (short form) - Note Progress Note: s: no cp sob, palps, dizzy, laying flat in bed comfortably o: Vital Signs Period Temp Pulse Resp BP Sys/Orantes Pulse Ox Last 24 Hr 97.5 F-98.0 F 75-76 18-22 108-122/60-71 94-95 NAD, calm JVD flat, neck supple RRR nl s1, s2 no m/r/g. cta bl, nl effort + bs soft nd, nt no le e/c/c aaox3 no jaundice diaphoresis Current Medications Generic Name Dose Route Start Last Admin Trade Name Freq PRN Reason Stop Dose Admin Acetaminophen 650 mg 09/06/16 19:10 Tylenol - PO Q6H PRN FEVER OR PAIN Albuterol Sulfate 1 amp 09/06/16 19:10 Ventolin 0.083% Nebulizer Soln - NEB Q6H PRN SHORT OF BREATH/WHEEZING Atorvastatin Calcium 40 mg 09/06/16 22:00 09/07/16 22:55 Lipitor - PO 40 mg HS [facility] Administration Carvedilol 6.25 mg 09/06/16 22:00 09/07/16 22:55 Coreg - PO 6.25 mg BID [facility] Administration Docusate Sodium 100 mg 09/06/16 22:00 09/07/16 22:55 Colace - PO 100 mg BID [facility] Administration Ferrous Sulfate 325 mg 09/07/16 10:00 09/07/16 09:30 Feosol - PO 325 mg Q48H [facility] Administration Milrinone Lactate/Dextrose 100 mls @ 9.954 mls/hr 09/06/16 21:15 09/08/16 05:55 Milrinone 20mg/100ml Ivpb - IVPB 10.2 mls/hr TITR [facility] Administration Protocol 0.35 MCG/KG/MIN Ondansetron HCl 4 mg 09/06/16 19:19 Zofran Injection IVPB Q6H PRN NAUSEA Potassium Chloride 20 meq 09/06/16 22:00 09/08/16 05:54 K-Dur - PO 20 meq TID [facility] Administration Ranitidine HCl 75 mg 09/07/16 10:00 09/07/16 09:29 Zantac - PO 75 mg DAILY [facility] Administration Torsemide 40 mg 09/07/16 06:00 09/08/16 05:54 Demadex - PO 40 mg BIDLASIX [facility] Administration Warfarin Sodium 4 mg 09/07/16 18:00 09/07/16 17:12 Coumadin - PO 4 mg DAILY@1800 [facility] Administration CBC, BMP 09/08/16 05:35 09/08/16 05:35 ecg 09/06/16: vp project echo 05/2016: sev lve, global hk, sev dec lvef, mild rve, nl rv fcn, estefania, mild- mod mr, mv ring, tv ring, mild tr, mild pr, mild phtn, ivc mild dil cxr: mild congestion (chronic finding) tele: vp project a/p: 76 year old gentleman with PMH of IDDM, COPD (O2 dependant) HTN, HLD, Afib (on coumadin), CAD s/p CABG 2012, end stage CHF with ICD placement (on milrinone pump), PVD, BPH here with n/v/abd pain. n/v/abd pain: -no signs of cardiac etiology, no signs acs -possible viral gastroenteritis, sxs resolved now chronic end stage systolic heart failure s/p ICD, on home milrinone infusion: - dry wt approx 211 lbs, currently near this value - vol status seems stable, cont home torsemide 40 po bid as doing - cont milrinone at patient's home maintenance dose (on chronic infusion destination therapy)--0.35 mcg/kg/min. - cont home coreg - recent office icd check with stable function afib - currently rate controlled on coreg - cont coumadin dosing as doing (target INR 2-3) PVD - con't AC, statin. CAD s/p CABG - No anginal symptoms, no signs acs. Con't home ac, atorvastatin, coreg HTN: controlled on coreg HL: con't statin. CKD - slightly above baseline (baseline cr range here 1.9-2.2), possibly due to vomiting. improved again today w/o any intervention, will likely return to baseline on own now that vomiting resolved. cardiac shrestha remains stable/at baseline
[2016-09-08] MEDS: CARVEDILOL 6.25 MG TABLET (FP) PO SCH ×2 (10:22→21:28)
[2016-09-08] MEDS: DOCUSATE SODIUM 100 MG CAPSULE (FP) PO SCH ×2 (10:22→21:28)
[2016-09-08] MEDS: RANITIDINE HCL 150 MG TABLET (FP) PO SCH (10:22)
[2016-09-08] MEDS: ALBUTEROL SO4 0.083% IH SOL 2.5 MG/3 ML VIAL.NEB. NEB PRN ×2 (10:25→16:18)
--- NOTE | 2016-09-08 12:48 | DS ---
Physical Examination Vital Signs: Vital Signs Temperature 98.2 F 09/08/16 10:00 Pulse Rate 76 09/08/16 10:00 Respiratory Rate 18 09/08/16 10:00 Blood Pressure 122/60 09/08/16 10:00 O2 Sat by Pulse Oximetry (%) 95 09/08/16 06:00 Constitutional: Yes: Well Nourished, No Distress, Calm Cardiovascular: Yes: Regular Rate and Rhythm. No: Gallop, Murmur, Rub Respiratory: Yes: Regular, CTA Bilaterally. No: Rales, Rhonchi, Wheezes Gastrointestinal: Yes: Normal Bowel Sounds, Soft. No: Distention, Tenderness Extremities: Yes: WNL Edema: No Labs: CBC, BMP 09/08/16 05:35 09/08/16 05:35 Discharge Summary Reason For Visit: RENAL INSUFFICIENCY; VOMITING Current Active Problems Gastroenteritis (Acute) Pancreatic mass (Acute) Renal insufficiency (Acute) Renal mass (Acute) Vomiting (Acute) Hospital Course: (1) Gastroenteritis Code(s): K52.9 - NONINFECTIVE GASTROENTERITIS AND COLITIS, UNSPECIFIED (2) CKD (chronic kidney disease) Code(s): N18.9 - CHRONIC KIDNEY DISEASE, UNSPECIFIED Qualifiers: Chronic kidney disease stage: unspecified stage Qualified Code(s): N18.9 - Chronic kidney disease, unspecified (3) AICD (automatic cardioverter/defibrillator) present Code(s): Z95.810 - PRESENCE OF AUTOMATIC (IMPLANTABLE) CARDIAC DEFIBRILLATOR (4) CHF (congestive heart failure) Code(s): I50.9 - HEART FAILURE, UNSPECIFIED Qualifiers: Congestive heart failure type: systolic Congestive heart failure chronicity: chronic Qualified Code(s): I50.22 - Chronic systolic (congestive ) heart failure (5) Renal mass Code(s): N28.89 - OTHER SPECIFIED DISORDERS OF KIDNEY AND URETER (6) Pancreatic mass Code(s): K86.9 - DISEASE OF PANCREAS, UNSPECIFIED Mr Perez is a 76 year old male who comes in with gastroenteritis. He was seen and admitted. He was monitored and the gastroenteritis resolved. His diet was advanced and he tolerated this well. He was not hydrated with IVF secondary to end stage CHF. He was continued on milrinone gtt. There was concern for a renal mass seen on CT scan, ultrasound was performed and it was cystic. A pancreatic mass was also noted, however unable to do MRI or CT scan with contrast. Since it is small he was referred to outpatient GI for outpatient EUS. Patient was made aware of his need for follow up with GI prior to discharge. Currently he is doing well and is without complaint. He is safe for discharge home. 35 minutes spent in preparation of this discharge Condition: Stable - Instructions Diet, Activity, Other Instructions: Please make appointment with Dr Juan Jose Garcia to follow up pancreatic lesion. Do not take coumadin today, restart it tomorrow 09/09. Resume previous diet and activity. Referrals: Khang Lopez MD [Primary Care Provider] - Mei Piña MD [Staff Physician] - Nash Garner MD [Staff Physician] - Rk Garcia DO [Staff Physician] - Disposition: HOME - Home Medications Comprehensive Discharge Medication List: Ambulatory Orders Allopurinol [Zyloprim -] 100 mg PO DAILY 09/10/15 Atorvastatin Ca [Lipitor] 40 mg PO HS 09/10/15 Carvedilol 6.25 mg PO BID 09/10/15 Docusate Sodium [Colace -] 100 mg PO BID 09/10/15 Insulin NPL/Insulin Lispro [Humalog Mix 75-25 Vial] 0 unit SQ PRN 09/10/15 Milrinone Lactate/D5w [Milrinone 0.2 mg/ml in D5w] 0 mg IV DAILY 09/10/15 Ranitidine [Zantac -] 75 mg PO DAILY 09/10/15 Torsemide 40 mg PO BID 09/10/15 Albuterol 0.083% Nebulizer Jewell [Ventolin 0.083% Nebulizer Soln -] 1 amp NEB Q6H PRN #120 amp 09/14/15 Nebulizer [Compact Compressor Nebulizer] 1 each MC TID 04/15/16 Acetaminophen [Tylenol .Regular Strength -] 650 mg PO Q6H PRN #0 tablet Ferrous Sulfate [Feosol] 325 mg PO Q48H ud 04/23/16 Potassium Chloride [K-Dur -] 20 meq PO TID #90 tablet.er 04/23/16 Warfarin Na [Coumadin -] 4 mg PO DAILY@1800 09/06/16
[2016-09-08] MEDS: WARFARIN NA 2 MG TABLET (UD) PO SCH (17:14)
--- NOTE | 2016-09-08 18:14 | PN ---
Progress Note (short form) - Note Progress Note: Renal Follow up Pt seen and examined at the bedside Pt denies any sob or chest pain is concerned about JVD on Milrinone gtt Vital Signs Temperature 98.2 F 09/08/16 17:00 Pulse Rate 73 09/08/16 17:00 Respiratory Rate 18 09/08/16 17:00 Blood Pressure 106/64 09/08/16 17:00 O2 Sat by Pulse Oximetry (%) 94 L 09/08/16 09:00 Intake & Output 09/05/16 09/06/16 09/07/16 09/08/16 23:59 23:59 23:59 23:59 Intake Total 240 590 892.4 Output Total 400 1151 Balance 240 190 -258.6 Weight 208 lb 208 lb 9.6 oz 213 lb Gen: NAD awake and alert on NC HEENT: + JVD CVS: RRR, No M/R Lungs: DEc BS at lung bases but no rales Abd: soft NT/ND Ext: no edema, clubbing or cyanosis CBC, BMP 09/08/16 05:35 09/08/16 05:35 Current Medications Acetaminophen (Tylenol -) 650 mg PO Q6H PRN PRN Reason: FEVER OR PAIN Albuterol Sulfate (Ventolin 0.083% Nebulizer Soln -) 1 amp NEB Q6H PRN PRN Reason: SHORT OF BREATH/WHEEZING Last Admin: 09/08/16 16:18 Dose: 1 amp Atorvastatin Calcium (Lipitor -) 40 mg PO HS [facility] Last Admin: 09/07/16 22:55 Dose: 40 mg Carvedilol (Coreg -) 6.25 mg PO BID [facility] Last Admin: 09/08/16 10:22 Dose: 6.25 mg Docusate Sodium (Colace -) 100 mg PO BID [facility] Last Admin: 09/08/16 10:22 Dose: 100 mg Ferrous Sulfate (Feosol -) 325 mg PO Q48H [facility] Last Admin: 09/07/16 09:30 Dose: 325 mg Milrinone Lactate/Dextrose (Milrinone 20mg/100ml Ivpb -) 100 mls @ 9.954 mls/ hr IVPB TITR [facility]; 0.35 MCG/KG/MIN PRN Reason: Protocol Last Admin: 09/08/16 16:00 Dose: 10.2 mls/hr Ondansetron HCl (Zofran Injection) 4 mg IVPB Q6H PRN PRN Reason: NAUSEA Potassium Chloride (K-Dur -) 20 meq PO TID [facility] Last Admin: 09/08/16 14:13 Dose: 20 meq Ranitidine HCl (Zantac -) 75 mg PO DAILY [facility] Last Admin: 09/08/16 10:22 Dose: 75 mg Torsemide (Demadex -) 40 mg PO BIDLASIX [facility] Last Admin: 09/08/16 14:13 Dose: 40 mg Warfarin Sodium (Coumadin -) 4 mg PO DAILY@1800 [facility] Last Admin: 09/08/16 17:14 Dose: Not Given A/P 76 year old Gentleman with PMHx of End-stage CHF on Mirinone Gtt, CKD Stage 4 ( baseline Cr 2-2.2) who presented with Abd pain/N/V from his cardiologists office and found to gastroenteritis with JOHN with BUN/Cr of 68/2.6. #Acute on Chronic Renal Insufficiency Renal function improving with diuresis Agree with change to PO toresemide 40mg BID Will need to monitor renal function as an outpatient #Left Kidney Lesion seen on Ct of the Abd Renal US showed simple B/L renal cysts #Gastroenteritis continue supportive care #End stage CHF continue Milrinone and diuretics as per cardiology Jeyson Terry DO
[2016-09-08 19:51] VITALS: BP 106/64; PULSE 73; TEMP 98.2
[2016-09-08] MEDS: ATORVASTATIN CA 40 MG TABLET (FP) PO SCH (21:28)
== END 2016-09-08 22:00 | disposition home or self-care (01) | DRG 392 ==
LOC: JER 13:07 → JERBED 17:53 → J4W 20:48
PROVIDERS: ADMIT Specialist; ATTEND Specialist
DX: K52.9 Noninfective gastroenteritis and colitis, unspecified (principal); N17.9 Acute kidney failure, unspecified; I13.0 Hypertensive heart and chronic kidney disease with heart failure and stage 1 through stage 4 chronic kidney disease, or unspecified chronic kidney disease; I50.22 Chronic systolic (congestive) heart failure; I42.9 Cardiomyopathy, unspecified; N18.4 Chronic kidney disease, stage 4 (severe); Z95.810 Presence of automatic (implantable) cardiac defibrillator; I48.91 Unspecified atrial fibrillation; E78.5 Hyperlipidemia, unspecified; I25.10 Atherosclerotic heart disease of native coronary artery without angina pectoris; Z95.1 Presence of aortocoronary bypass graft; I73.9 Peripheral vascular disease, unspecified; N40.0 Benign prostatic hyperplasia without lower urinary tract symptoms; K86.9 Disease of pancreas, unspecified
CPT/HCPCS: 36415; 71010-TC; 74176-TC; 76775-TC; 80048; 80053; 82550; 83690; 83735; 84100; 84484; 85025; 85610; 93005; 93010; 94640; 99284-25

== ENCOUNTER 2016-11-24 12:40 | Inpatient (IN) | payer BC, OTHER ==
[2016-11-24 12:46] VITALS: BMI 28.0
--- NOTE | 2016-11-24 13:22 | PDOC ---
History of Present Illness - General History Source: Patient, Spouse Exam Limitations: No Limitations - History of Present Illness Initial Comments: 11/24/16 14:45 The patient is a 76 year old male, with significant past medical history of IDDM , HTN, COPD( on O2 2L for 24 hours), Afib (on coumadin), CAD s/p CABG, PAD, end - stage CHF s/p ICD placement (on milrinone pump for 3 years), and [place] (2010) who presents today accompanied by with complaint of increased cough. Patient states that the cough started 1 month ago, the PMD prescribed Z pack that provided no relief, then PMD prescribed amoxicillin and he completed last dose today. Patient reports bringing up yellow-whitish phlegm during cough. He reports no relief with Robitussin. He notes that his regular pulse ox is 92-94 at rest and in high 80s during exercise that is bsaeline. Pt denies any fever/ chils, chest pain, new FREIRE (has some at bsa[place], but not worse recently), leg edema, orthopnea. No recent travel. He denies any leg swelling. As per , she reports pneumonia 3 weeks ago. PCP - Dr. Lopez Laboratory Clerk - Dr. Boyd <Estela Dixon - Last Filed: 11/24/16 16:37> <Son García - Last Filed: 11/25/16 11:21> - General Chief Complaint: Shortness of Breath Stated Complaint: COUGH, SOB Time Seen by Provider: 11/24/16 12:59 Past History <Estela Dixon - Last Filed: 11/24/16 16:37> - Past Medical History Anemia: Yes Asthma: No Cancer: No Cardiac Disorders: Yes (CHF, [place] 2010,defibrilator placement,PACEMAKER) CVA: No COPD: Yes CHF: Yes Dementia: No Diabetes: Yes GI Disorders: No Disorders: Yes (bph) HTN: Yes Hypercholesterolemia: Yes Liver Disease: No Suicide Attempt (Hx): No Seizures: No Thyroid Disease: No - Surgical History Abdominal Surgery: Yes (HERNIA REPAIR 2002) Appendectomy: No Cardiac Surgery: Yes (2 OPEN HEART SURGERIES; TRACH PLACEMENT,PACEMAKER PLACED ) Cholecystectomy: Yes Lung Surgery: No Neurologic Surgery: No Orthopedic Surgery: No - Immunization History Td Vaccination: Yes TDAP Vaccination: Yes Immunization Up to Date: Yes - Psycho/Social/Smoking Cessation Hx Anxiety: No Suicidal Ideation: No Smoking Status: No Smoking History: Never smoked Years of Tobacco Use: 40 Have you smoked in the past 12 months: No Number of Cigarettes Smoked Daily: 40 If you are a former smoker, when did you quit?: 2010 Cigars Per Day: 0 Information on smoking cessation initiated: No 'Breaking Loose' booklet given: 02/06/12 Hx Alcohol Use: No Drug/Substance Use Hx: No Substance Use Type: None Hx Substance Use Treatment: No <Son García - Last Filed: 11/25/16 11:21> - Past Medical History Allergies/Adverse Reactions: Allergies Allergy/AdvReac Type Severity Reaction Status Date / Time No Known Drug Allergies Allergy Verified 11/24/16 12:46 shellfish derived Allergy Verified 11/24/16 12:46 Home Medications: Ambulatory Orders Allopurinol [Zyloprim -] 100 mg PO DAILY 09/10/15 Atorvastatin Ca [Lipitor] 40 mg PO HS 09/10/15 Carvedilol 6.25 mg PO BID 09/10/15 Docusate Sodium [Colace -] 100 mg PO BID 09/10/15 Insulin NPL/Insulin Lispro [Humalog Mix 75-25 Vial] 0 unit SQ PRN 09/10/15 Milrinone Lactate/D5w [Milrinone 0.2 mg/ml in D5w] 0 mg IV DAILY 09/10/15 Ranitidine [Zantac -] 75 mg PO DAILY 09/10/15 Torsemide 40 mg PO BID 09/10/15 Albuterol 0.083% Nebulizer Jewell [Ventolin 0.083% Nebulizer Soln -] 1 amp NEB Q6H PRN #120 amp 09/14/15 Ferrous Sulfate [Feosol] 325 mg PO Q48H ud 04/23/16 Potassium Chloride [K-Dur -] 20 meq PO TID #90 tablet.er 04/23/16 Warfarin Na [Coumadin -] 4 mg PO DAILY@1800 09/06/16 Bupropion HCl [Wellbutrin -] 75 mg DAILY 09/08/16 Ascorbic Acid [Vitamin C -] 1,000 mg PO DAILY 11/24/16 Cholecalciferol (Vitamin D3) [Vitamin D3 -] 1,000 unit PO DAILY 11/24/16 Clopidogrel Bisulfate [Plavix -] 75 mg PO DAILY 11/24/16 Multivitamin [Poly-Vitamin] 1 each PO DAILY 11/24/16 Respiratory Specific PMHX - Complaint Specific PMHX Angina: Yes Pneumonia: Yes <Son García - Last Filed: 11/25/16 11:21> Review of Systems - Review of Systems Able to Perform ROS?: Yes Comments:: 11/24/16 14:45 CONSTITUTIONAL: No reported: Fever, Chills, Diaphoresis, Generalized Weakness, Malaise, Loss of Appetite HEENT: No reported: Rhinorrhea, Nasal Congestion, Throat Pain, Throat Swelling, Difficulty Swallowing, Mouth Swelling, Ear Pain, Eye Pain, Visual Changes CARDIOVASCULAR: No reported: Chest Pain, Syncope, Palpitations, Irregular Heart Rate, Lightheadedness, Peripheral Edema RESPIRATORY: Reported: cough, SOB No reported:SOB with Exertion, Orthopnea, Wheezing, Stridor, Hemoptysis GASTROINTESTINAL: No reported: Abdominal pain, Abdominal Distension, Nausea, Vomiting, Diarrhea, Constipation, Melena, Hematochezia GENITOURINARY: No reported: Dysuria, Frequency, Urgency, Hesitancy, Flank Pain, Genital Pain MUSCULOSKELETAL: No reported: Myalgia, Arthralgia, Joint Swelling, Back pain, Neck Pain SKIN: No reported: Rash, Itching, Pallor HEMEATOLOGIC/IMMUNOLOGIC: No reported: Easy Bleeding, Easy Bruising, Lymphadenopathy, Frequent infections ENDOCRINE: No reported: Unexplained Weight Gain, Unexplained Weight Loss, Heat Intolerance , Cold Intolerance NEUROLOGIC: No reported: Headache, Focal Weakness, Paresthesias, Vertigo, Lightheadedness, Unsteady Gait, Seizure, Mental Status Changes, Incontinence PSYCHIATRIC: No reported: Anxiety, Depression <Estela Dixon - Last Filed: 11/24/16 16:37> *Physical Exam - Vital Signs Last Vital Signs Temp Pulse Resp BP Pulse Ox 97.4 F L 78 18 113/70 92 L 11/24/16 12:43 11/24/16 12:43 11/24/16 12:43 11/24/16 12:43 11/24/16 12:43 - Physical Exam Comments: 11/24/16 14:47 GENERAL: The patient is awake, alert, and fully oriented, Nontoxic - in no acute distress. HEAD: Normocephalic, atraumatic. EYES: extraocular movements intact, sclera anicteric, conjunctiva clear. ENT: + NC in place. Normal voice, Moist mucous membranes. NECK: Normal range of motion, supple, no jvd CHEST: +Port in the right chest clean, dry, intact LUNGS: Breath sounds equal, clear to auscultation bilaterally. No wheezes, no rhonchi, no rales. HEART: Regular rate and rhythm, without murmur, rub or gallop. ABDOMEN: Soft, nontender, normoactive bowel sounds. No guarding, no rebound.No CVA tenderness EXTREMITIES: Normal range of motion, no edema. No clubbing or cyanosis. No cords , erythema, or tenderness. NEUROLOGICAL: No facial asymmetry, Normal speech, moving all 4extremities spontaneously and symmetrically PSYCH: Normal mood, normal affect. SKIN: Warm, Dry, normal turgor, <Estela Dixon - Last Filed: 11/24/16 16:37> - Vital Signs Last Vital Signs Temp Pulse Resp BP Pulse Ox 97.4 F L 78 18 113/70 92 L 11/24/16 12:43 11/24/16 12:43 11/24/16 12:43 11/24/16 12:43 11/24/16 12:43 <Son García - Last Filed: 11/25/16 11:21> Heart Score/ECG Review - ECG Impressions Comment:: 11/24/16 15:06 Twelve-lead EKG was performed and reviewed by me. Ventricular paced rhythm Rate of 76 no signs of mi per sgarbossa criteria <Son García - Last Filed: 11/25/16 11:21> ED Treatment Course - LABORATORY CBC & Chemistry Diagram: 11/24/16 13:52 11/24/16 13:52 - ADDITIONAL ORDERS Additional order review: 11/24/16 13:52 RBC 4.87 MCV 82.5 MCHC 31.8 L RDW 18.1 H MPV 8.9 Neutrophils % 75.4 Lymphocytes % 12.4 Monocytes % 10.2 Eosinophils % 1.7 Basophils % 0.3 <Estela Dixon - Last Filed: 11/24/16 16:37> - LABORATORY CBC & Chemistry Diagram: 11/25/16 06:07 11/25/16 06:07 <Son García - Last Filed: 11/25/16 11:21> Medical Decision Making - Medical Decision Making 11/24/16 16:00 Case was discussed with Dr. Cee covering for Dr. Boyd. 11/24/16 16:33 Case was discussed with Dr. Lopez, who noted that [facility] admits for their group for the next 2 weeks. Microblog was sent to the Admitting [facility] doctor. Case was discussed with Dr. Cerna. <Estela Dixon - Last Filed: 11/24/16 16:37> - Medical Decision Making 11/24/16 15:39 76y M hx of severe chf on milrinone gtt, presents with persistent cough x 1 month, trialed 2 abx without improvement, no associated with fever/chills, cxr was relatively clear, pts o2 noted for mild hypoxia on his baseline o2. differential includes viral syndrome vs chf exacerbation vs pna xray c/w congestion pts labs noted for eelvated bnp, bun/cr [facility] llikely need change in meds formanagement of chf due to severe chf, and due to severity of sypmtoms, will observe the patient in telemetry. will notify dr. boyd and dr. pineda regardin observation 11/24/16 16:07 11/24/16 16:[address] torres. agreed with observatio bria telemetry will hold diuresis for now as pt otherwise stable and in no distress 11/24/16 16:13 case jasen lopez requests observation admission under hospitalist service. dw dr. cerna agree with observation Case discussed in detail with admitting physician including history, physical exam and ancillary studies. Admitting physician has assumed care for the patient, will follow all pending diagnostics and will complete the evaluation and treatment. <Son García - Last Filed: 11/25/16 11:21> *DC/Admit/Observation/Transfer - Attestations Scribe Attestion: 11/24/16 14:48 Documentation prepared by RUFINA Flowers, acting as medical officer for Son García MD, /DO. <Estela Dixon - Last Filed: 11/24/16 16:37> - Discharge Dispostion Admit: Yes <Son García - Last Filed: 11/25/16 11:21> Diagnosis at time of Disposition: CHF (congestive heart failure) Qualifiers: Congestive heart failure type: combined Congestive heart failure chronicity: unspecified congestive heart failure chronicity Qualified Code(s): I50.40 - Unspecified combined systolic (congestive) and diastolic (congestive) heart failure - Referrals
[2016-11-24 14:21] LABS: BASOPHIL 0.3 % (0-2.0); EOSINOPHIL 1.7 % (0-4.5); MCH 26.2 pg (25.7-33.7); MCHC 31.8 g/dl (32.0-35.9); MEAN CELL VOLUME 82.5 fl (80-96); MEAN PLT VOLUME 8.9 fl (7.5-11.1); NEUTROPHILS 75.4 % (42.8-82.8); PLATELET COUNT 205 K/MM3 (134-434); RDW 18.1 % (11.9-15.9); WHITE BLOOD COUNT 8.6 K/mm3 (4.0-10.0)
[2016-11-24 15:11] LABS: ALBUMIN 3.5 g/dl (3.4-5.0); CALCIUM 9.1 mg/dL (8.5-10.1); CREATININE 2.4 mg/dL (0.7-1.3)
[2016-11-24 15:23] LABS: BILIRUBIN,TOTAL 0.8 mg/dL (0.2-1.0); TOT PROT 7.9 g/dl (6.4-8.2); TROPONIN I 0.04 ng/ml (0.00-0.05)
[2016-11-24 15:23] LABS: URINE APPEARANCE CLEAR; URINE BILIRUBIN NEGATIVE (NEGATIVE); URINE COLOR LTYELLOW; URINE GLUCOSE (UA) NEGATIVE (NEGATIVE); URINE KETONE NEGATIVE (NEGATIVE); URINE NITRITE NEGATIVE (NEGATIVE); URINE PROTEIN NEGATIVE (NEGATIVE); URINE UROBILINOGEN NEGATIVE E.U./dl (0.2-1.0)
[2016-11-24 15:31] LABS: URINE BLOOD 1+ (NEGATIVE); URINE LEUK ESTERASE 3+ (NEGATIVE)
--- NOTE | 2016-11-24 15:34 | EKG ---
Test Reason : Blood Pressure : / mmHG Vent. Rate : 076 BPM Atrial Rate : 054 BPM P-R Int : 000 ms QRS Dur : 218 ms QT Int : 524 ms P-R-T Axes : 000 222 045 degrees QTc Int : 589 ms Ventricular-paced rhythm Biventricular pacemaker detected ABNORMAL ECG WHEN COMPARED WITH ECG OF 06-SEP-2016 14:12, NO SIGNIFICANT CHANGE WAS FOUND Confirmed by VINITA HALL MD ([id number]) on 11/24/2016 3:33:45 PM Referred By: Confirmed By:VINITA HALL MD
[2016-11-24 15:35] LABS: URINE HYALINE CAST 17 /lpf; URINE RBC 6 /hpf (0-3); URINE WBC 21 /hpf (3-5)
[2016-11-24] MEDS: INSULIN SLIDING SCALE (NOVOLOG) 1 VIAL SQ SCH ×2 (17:30→23:57)
--- NOTE | 2016-11-24 17:36 | HP ---
PCP: Khang Lopez CHIEF COMPLAINT: Cough HISTORY OF PRESENT ILLNESS This is a 76-year-old man who comes to the ER today complaining of a cough. He has had a cough and chest congestion for several weeks. He has been producing yellow sputum. He has been treated with Zithromax, followed by Amoxicillin without improvement. He has been taking Robitussin without relief. He denies fever, chills, chest pain, palpitations, leg edema. He has a history of COPD and end-stage CHF. He has shortness of breath with exertion at baseline. He uses oxygen at home at 2 LPM continuously. PAST MEDICAL HISTORY COPD Chronic hypoxic respiratory failure Chronic systolic heart failure, end-stage Atrial fibrillation CAD, [place] HTN Hyperlipidemia PAD Type 2 diabetes mellitus Stage 4 CKD BPH PAST SURGICAL HISTORY CABG AICD Hernia repair Cholecystectomy Allergies No Known Drug Allergies Allergy (Verified 11/24/16 12:46) shellfish derived Allergy (Verified 11/24/16 12:46) CRAB ONLY HOME MEDICATIONS 3 Medication Instructions Recorded Allopurinol [Zyloprim -] 100 mg PO DAILY 09/10/15 Atorvastatin Ca [Lipitor] 40 mg PO HS 09/10/15 Carvedilol 6.25 mg PO BID 09/10/15 Docusate Sodium [Colace -] 100 mg PO BID 09/10/15 Insulin NPL/Insulin Lispro 0 unit SQ PRN 09/10/15 [Humalog Mix 75-25 Vial] Milrinone Lactate/D5w [Milrinone 0 mg IV DAILY 09/10/15 0.2 mg/ml in D5w] Ranitidine [Zantac -] 75 mg PO DAILY 09/10/15 Torsemide 40 mg PO BID 09/10/15 Albuterol 0.083% Nebulizer Jewell 1 amp NEB Q6H PRN #120 amp 09/14/15 [Ventolin 0.083% Nebulizer Soln -] Ferrous Sulfate [Feosol] 325 mg PO Q48H ud 04/23/16 Potassium Chloride [K-Dur -] 20 meq PO TID #90 tablet.er 04/23/16 Warfarin Na [Coumadin -] 4 mg PO DAILY@1800 09/06/16 Bupropion HCl [Wellbutrin -] 75 mg DAILY 09/08/16 Ascorbic Acid [Vitamin C -] 1,000 mg PO DAILY 11/24/16 Cholecalciferol (Vitamin D3) 1,000 unit PO DAILY 11/24/16 [Vitamin D3 -] Clopidogrel Bisulfate [Plavix -] 75 mg PO DAILY 11/24/16 Multivitamin [Poly-Vitamin] 1 each PO DAILY 11/24/16 Social History: Smoking: Quit smoking 2010 Alcohol: Denies Drugs: Denies Recent Travel: No Family History: Non-contributory REVIEW OF SYSTEMS CONSTITUTIONAL: Absent: fever, chills, diaphoresis, generalized weakness, malaise, loss of appetite, weight change HEENT: Absent: rhinorrhea, nasal congestion, throat pain, throat swelling, difficulty swallowing, mouth swelling, ear pain, eye pain, visual changes CARDIOVASCULAR: Absent: chest pain, syncope, palpitations, lightheadedness, peripheral edema RESPIRATORY: Present: cough, shortness of breath, dyspnea with exertion. Absent : orthopnea, wheezing, stridor, hemoptysis GASTROINTESTINAL: Absent: abdominal pain, abdominal distension, nausea, vomiting , diarrhea, constipation, melena, hematochezia GENITOURINARY: Absent: dysuria, frequency, urgency, hesitancy, hematuria, flank pain MUSCULOSKELETAL: Absent: myalgia, arthralgia, joint swelling, back pain, neck pain SKIN: Absent: rash, itching, pallor HEMATOLOGIC/IMMUNOLOGIC: Absent: easy bleeding, easy bruising, lymphadenopathy, frequent infections ENDOCRINE: Absent: unexplained weight gain, unexplained weight loss, heat intolerance, cold intolerance NEUROLOGIC: Absent: headache, focal weakness, paresthesias, dizziness, unsteady gait, seizure, mental status changes, bladder or bowel incontinence PSYCHIATRIC: Absent: anxiety, depression, suicidal or homicidal ideation, hallucinations. PHYSICAL EXAMINATION Vital Signs Period Temp Pulse Resp BP Sys/Orantes Pulse Ox Last 24 Hr 97.4 F-97.6 F 76-78 18-18 101-113/60-70 92-97 GENERAL: Awake, alert, and fully oriented, in no acute distress. HEAD: Normal with no signs of trauma. EYES: Pupils equal, round and reactive to light, extraocular movements intact, sclerae anicteric, conjunctivae clear. EARS, NOSE, THROAT: Ears normal, nares patent, oropharynx clear without exudates. Moist mucous membranes. NECK: Normal range of motion, supple without lymphadenopathy, JVD, or masses. LUNGS: Breath sounds equal, clear to auscultation bilaterally. No wheezes, and no crackles. No accessory muscle use. HEART: Regular rate and rhythm, normal S1 and S2 without murmur, rub or gallop. ABDOMEN: Soft, nontender, not distended, normoactive bowel sounds, no guarding, no rebound, no masses. No hepatomegaly or splenomegaly. MUSCULOSKELETAL: Normal range of motion at all joints. No bony deformities or tenderness. No CVA tenderness. UPPER EXTREMITIES: 2+ pulses, warm, well-perfused. No cyanosis. No clubbing. No peripheral edema. LOWER EXTREMITIES: 2+ pulses, warm, well-perfused. No calf tenderness. Trace edema. NEUROLOGICAL: Cranial nerves II-XII intact. Normal speech. Gait not observed. PSYCHIATRIC: Cooperative. Good eye contact. Appropriate mood and affect. SKIN: Warm, dry, normal turgor, no rashes or lesions noted, normal capillary refill. Laboratory Tests 11/24/16 11/24/16 11/24/16 13:52 13:52 15:00 WBC 8.6 RBC 4.87 Hgb 12.8 Hct 40.1 MCV 82.5 MCHC 31.8 L RDW 18.1 H Plt Count 205 MPV 8.9 Neutrophils % 75.4 Lymphocytes % 12.4 Monocytes % 10.2 Eosinophils % 1.7 Basophils % 0.3 Sodium 139 Potassium 3.1 L D Chloride 89 L Carbon Dioxide 43 H D Anion Gap 7 L BUN 60 H Creatinine 2.4 H Creat Clearance w eGFR 26.31 Random Glucose 148 H Calcium 9.1 Total Bilirubin 0.8 D AST 23 D ALT 25 D Alkaline Phosphatase 143 H Creatine Kinase 58 Troponin I 0.04 D B-Natriuretic Peptide 3380.17 H Total Protein 7.9 Albumin 3.5 Urine Color Ltyellow Urine Appearance Clear Urine pH 5.0 D Ur Specific [place] 1.009 Urine Protein Negative Urine Glucose (UA) Negative Urine Ketones Negative Urine Blood 1+ H Urine Nitrite Negative Urine Bilirubin Negative Urine Urobilinogen Negative Ur Leukocyte Esterase 3+ H Urine RBC 6 Urine WBC 21 Ur Epithelial Cells Rare Hyaline Casts 17 EKG: Ventricular paced, rate 76 ASSESSMENT/PLAN: This is a 76-year-old man with a history of COPD, chronic hypoxic respiratory failure, end-stage chronic systolic heart failure, atrial fibrillation, CAD, VT , HTN, hyperlipidemia, PAD, type 2 DM, stage 4 CKD, BPH who presented to the ER complaining of a cough for several weeks that has not responded to antibiotics and Robitussin. He was found to have potassium 3.1, BUN 60, creatinine 2.4, BNP 3380. 1. Hypokalemia - Replete potassium 2. Cough, possibly secondary to bronchitis - Completed courses of Zithromax and Amoxicillin - Start Mucinex 3. COPD - Stable - DuoNeb as needed 4. Chronic systolic heart failure, end-stage - Stable - Continue Coreg, Torsemide, Milrinone - Has AICD 5. Chronic hypoxic respiratory failure - Continue oxygen to maintain saturation > 90% 6. Permanent atrial fibrillation - Continue Coreg, Coumadin 7. CAD, history of VT - Continue Coreg, Plavix, Lipitor 8. HTN - Continue Coreg 9. Hyperlipidemia - Continue Lipitor 10. PAD 11. Type 2 diabetes mellitus - Fingersticks with Novolog sliding scale 12. Stage 4 CKD - Stable 13. BPH
[2016-11-24] MEDS ORDERED: ONDANSETRON 4 MG/2 ML VIAL IVPB PRN (17:44)
[2016-11-24] MEDS ORDERED: ACETAMINOPHEN 325 MG TABLET (FP) PO PRN (17:44)
[2016-11-24] MEDS ORDERED: INSULIN (NOVOLOG) ASPART 100 UNITS/ML 10ML VIAL ONE (18:00)
[2016-11-24] MEDS ORDERED: POTASSIUM CHLORIDE TABS 20 MEQ TABLET.ER (FP) PO ONE (19:15)
[2016-11-24] MEDS: ALBUTEROL SO4 2.5/IPRATROPIUM 0.5 INH SOL 3 ML VIAL.NEB. NEB SCH (19:30)
[2016-11-24] MEDS ORDERED: POTASSIUM CHLORIDE TABS 10 MEQ TABLET.ER (FP) ONE (20:19)
[2016-11-24] MEDS ORDERED: ALBUTEROL SO4 2.5/IPRATROPIUM 0.5 INH SOL 3 ML VIAL.NEB. NEB ONE (20:31)
[2016-11-24] MEDS ORDERED: MILRINONE 20MG/100ML IVPB - 100 ML IVPB SCH (20:45)
[2016-11-24] MEDS: TORSEMIDE 20 MG TABLET (FP) PO SCH (21:02)
[2016-11-24 21:08] LABS: INR 2.8 (0.82-1.09); PROTHROMBIN TIME (PATIENT) 31.4 SEC (9.98-11.88)
[2016-11-24] MEDS: POTASSIUM CHLORIDE TABS 20 MEQ TABLET.ER (FP) PO SCH (23:57)
[2016-11-25] MEDS: ATORVASTATIN CA 40 MG TABLET (FP) PO SCH ×2 (00:04→22:04)
[2016-11-25] MEDS: CARVEDILOL 6.25 MG TABLET (FP) PO SCH ×3 (00:04→22:04)
[2016-11-25] MEDS: guaiFENesin 600 MG TABLET.ER (FP) PO SCH ×3 (00:04→22:04)
[2016-11-25] MEDS: DOCUSATE SODIUM 100 MG CAPSULE (FP) PO SCH ×3 (00:04→22:04)
[2016-11-25] MEDS ORDERED: WARFARIN NA 2 MG TABLET (UD) PO ONE (00:21)
[2016-11-25] MEDS: MILRINONE 20MG/100ML IVPB - 100 ML IVPB SCH ×3 (00:35→18:14)
[2016-11-25] MEDS: INSULIN SLIDING SCALE (NOVOLOG) 1 VIAL SQ SCH ×4 (06:04→22:05)
[2016-11-25] MEDS: TORSEMIDE 20 MG TABLET (FP) PO SCH ×2 (06:08→14:21)
[2016-11-25] MEDS: POTASSIUM CHLORIDE TABS 20 MEQ TABLET.ER (FP) PO SCH ×3 (06:09→22:04)
[2016-11-25 08:06] LABS: BASOPHIL 0.8 % (0-2.0); EOSINOPHIL 1.9 % (0-4.5); MCH 26.4 pg (25.7-33.7); MCHC 32.2 g/dl (32.0-35.9); MEAN CELL VOLUME 81.9 fl (80-96); MEAN PLT VOLUME 8.6 fl (7.5-11.1); NEUTROPHILS 68.1 % (42.8-82.8); PLATELET COUNT 190 K/MM3 (134-434); RDW 18.1 % (11.9-15.9); WHITE BLOOD COUNT 7.9 K/mm3 (4.0-10.0)
[2016-11-25 08:34] LABS: CALCIUM 8.9 mg/dL (8.5-10.1); CREATININE 2.3 mg/dL (0.7-1.3)
[2016-11-25] MEDS ORDERED: MILRINONE LACTATE IV SCH (10:00)
[2016-11-25] MEDS ORDERED: [UNRECOGNIZED DRUG - OTHER] IV SCH (10:00)
[2016-11-25] MEDS ORDERED: D5W IV SCH (10:00)
--- NOTE | 2016-11-25 10:53 | CON.CARD ---
Cardiology Consult (text) - Consultation Consultation Note: cc: productive cough hpi: 76 year old gentleman with PMH of IDDM, COPD (O2 dependant) HTN, HLD, Afib (on coumadin), CAD s/p CABG 2012, end stage CHF with ICD placement (on milrinone pump), PVD, BPH here with productive cough. Pt reports past few weeks has had productive cough with yellow sputum. He finished course of abx as outpt this week but sxs persisted so came to ER. No fevers. No cp, palps, dizzy, loc, pnd, orthopnea, le edema. Baseline chronic jose unchanged. Sees dr boyd for cardio. Past Medical History/Surg hx: per hpi, additionally hernia repair Soc hx: Former smoker, no etoh or illicits fam hx: brother with pvd ros: per hpi; +nasal congestion, no rash, ricks, vision changes, wt loss, gib, hematuria meds: Home Medications Medication Instructions Recorded Allopurinol [Zyloprim -] 100 mg PO DAILY 09/10/15 Atorvastatin Ca [Lipitor] 40 mg PO HS 09/10/15 Carvedilol 6.25 mg PO BID 09/10/15 Docusate Sodium [Colace -] 100 mg PO BID 09/10/15 Insulin NPL/Insulin Lispro 0 unit SQ PRN 09/10/15 [Humalog Mix 75-25 Vial] Milrinone Lactate/D5w [Milrinone 0 mg IV DAILY 09/10/15 0.2 mg/ml in D5w] Ranitidine [Zantac -] 75 mg PO DAILY 09/10/15 Torsemide 40 mg PO BID 09/10/15 Albuterol 0.083% Nebulizer Jewell 1 amp NEB Q6H PRN #120 amp 09/14/15 [Ventolin 0.083% Nebulizer Soln -] Ferrous Sulfate [Feosol] 325 mg PO Q48H ud 04/23/16 Potassium Chloride [K-Dur -] 20 meq PO TID #90 tablet.er 04/23/16 Warfarin Na [Coumadin -] 4 mg PO DAILY@1800 09/06/16 Bupropion HCl [Wellbutrin -] 75 mg DAILY 09/08/16 Ascorbic Acid [Vitamin C -] 1,000 mg PO DAILY 11/24/16 Cholecalciferol (Vitamin D3) 1,000 unit PO DAILY 11/24/16 [Vitamin D3 -] Clopidogrel Bisulfate [Plavix -] 75 mg PO DAILY 11/24/16 Multivitamin [Poly-Vitamin] 1 each PO DAILY 11/24/16 pe: Vital Signs Period Temp Pulse Resp BP Sys/Orantes Pulse Ox Last 24 Hr 97.3 F-97.8 F 64-78 18-20 101-118/59-72 92-98 NAD, calm JVD flat, neck supple RRR nl s1, s2 no m/r/g. cta bl, nl effort + bs soft nd, nt no le e/c/c aaox3 pos pt dp, no carotid bruits no jaundice diaphoresis Laboratory Last Values WBC 7.9 K/mm3 (4.0-10.0) 11/25/16 06:07 RBC 4.73 M/mm3 (4.00-5.60) 11/25/16 06:07 Hgb 12.5 GM/dL (11.7-16.9) 11/25/16 06:07 Hct 38.8 % (35.4-49) 11/25/16 06:07 MCV 81.9 fl (80-96) 11/25/16 06:07 MCHC 32.2 g/dl (32.0-35.9) 11/25/16 06:07 RDW 18.1 % (11.9-15.9) H 11/25/16 06:07 Plt Count 190 K/MM3 (134-434) 11/25/16 06:07 MPV 8.6 fl (7.5-11.1) 11/25/16 06:07 Neutrophils % 68.1 % (42.8-82.8) 11/25/16 06:07 Lymphocytes % 18.6 % (8-40) D 11/25/16 06:07 Monocytes % 10.6 % (3.8-10.2) H 11/25/16 06:07 Eosinophils % 1.9 % (0-4.5) 11/25/16 06:07 Basophils % 0.8 % (0-2.0) 11/25/16 06:07 INR 2.80 (0.82-1.09) H 11/24/16 20:40 Sodium 137 mmol/L (136-145) 11/25/16 06:07 Potassium 3.0 mmol/L (3.5-5.1) L 11/25/16 06:07 Chloride 92 mmol/L (98-107) L 11/25/16 06:07 Carbon Dioxide 37 mmol/L (21-32) H 11/25/16 06:07 Anion Gap 8 (8-16) 11/25/16 06:07 BUN 64 mg/dL (7-18) H 11/25/16 06:07 Creatinine 2.3 mg/dL (0.7-1.3) H 11/25/16 06:07 Creat Clearance w eGFR 26.31 (>60) 11/24/16 13:52 POC Glucometer 125 UNITS (()) 11/25/16 05:30 Random Glucose 136 mg/dL (74-106) H 11/25/16 06:07 Calcium 8.9 mg/dL (8.5-10.1) 11/25/16 06:07 Total Bilirubin 0.8 mg/dL (0.2-1.0) D 11/24/16 13:52 AST 23 U/L (15-37) D 11/24/16 13:52 ALT 25 U/L (12-78) D 11/24/16 13:52 Alkaline Phosphatase 143 U/L (45-117) H 11/24/16 13:52 Creatine Kinase 58 IU/L (39-308) 11/24/16 13:52 Troponin I 0.04 ng/ml (0.00-0.05) D 11/24/16 13:52 B-Natriuretic Peptide 3380.17 pg/ml (5-450) H 11/24/16 13:52 Total Protein 7.9 g/dl (6.4-8.2) 11/24/16 13:52 Albumin 3.5 g/dl (3.4-5.0) 11/24/16 13:52 Urine Color Ltyellow 11/24/16 15:00 Urine Appearance Clear 11/24/16 15:00 Urine pH 5.0 (5.0-8.0) D 11/24/16 15:00 Ur Specific [place] 1.009 (1.001-1.035) 11/24/16 15:00 Urine Protein Negative (NEGATIVE) 11/24/16 15:00 Urine Glucose (UA) Negative (NEGATIVE) 11/24/16 15:00 Urine Ketones Negative (NEGATIVE) 11/24/16 15:00 Urine Blood 1+ (NEGATIVE) H 11/24/16 15:00 Urine Nitrite Negative (NEGATIVE) 11/24/16 15:00 Urine Bilirubin Negative (NEGATIVE) 11/24/16 15:00 Urine Urobilinogen Negative E.U./dl (0.2-1.0) 11/24/16 15:00 Ur Leukocyte Esterase 3+ (NEGATIVE) H 11/24/16 15:00 Urine RBC 6 /hpf (0-3) 11/24/16 15:00 Urine WBC 21 /hpf (3-5) 11/24/16 15:00 Ur Epithelial Cells Rare /hpf (FEW) 11/24/16 15:00 Hyaline Casts 17 /lpf 11/24/16 15:00 ecg 11/24/16: svp programmatic tv echo 05/2016: sev lve, global hk, sev dec lvef, mild rve, nl rv fcn, estefania, mild- mod mr, mv ring, tv ring, mild tr, mild pr, mild phtn, ivc mild dil cxr: mild congestion (chronic finding) tele: svp programmatic tv a/p: 76 year old gentleman with PMH of IDDM, COPD (O2 dependant) HTN, HLD, Afib (on coumadin), CAD s/p CABG 2012, end stage CHF with ICD placement (on milrinone pump), PVD, BPH here with productive cough. cough: -no signs vol overload, pulm edema -cxr with chronic findings, bnp at baseline, wt below baseline -possible due to URI, plans per pmd chronic end stage systolic heart failure s/p ICD, on home milrinone infusion: - dry wt approx 211 lbs, currently near this value (below) - cxr with chronic findings, bnp at baseline - vol status seems stable, cont home torsemide 40 po bid as doing - cont milrinone at patient's home maintenance dose (on chronic infusion destination therapy)--0.35 mcg/kg/min. - cont home coreg - recent office icd check with stable function afib - currently rate controlled on coreg - cont coumadin per INR PVD - con't AC, statin. CAD s/p CABG - No anginal symptoms, no signs acs. Con't home ac, atorvastatin, coreg HTN: controlled on coreg HLD: con't statin. CKD - close to baseline cardiac shrestha stable for dc
[2016-11-25] MEDS: ALBUTEROL SO4 2.5/IPRATROPIUM 0.5 INH SOL 3 ML VIAL.NEB. NEB SCH (11:30)
[2016-11-25] MEDS: CLOPIDOGREL BISULFATE 75 MG TABLET (FP) PO SCH (11:37)
[2016-11-25] MEDS: ASCORBIC ACID 500 MG TABLET (FP) PO SCH (11:37)
[2016-11-25] MEDS: MULTIVITAMINS (DAILY MVI) TABLET (FP) PO SCH (11:37)
[2016-11-25] MEDS: RANITIDINE HCL 150 MG TABLET (FP) PO SCH (11:37)
[2016-11-25] MEDS: FERROUS SO4 325 MG TABLET (FP) PO SCH (11:37)
[2016-11-25] MEDS: ALLOPURINOL 100 MG TABLET (FP) PO SCH (11:38)
[2016-11-25] MEDS: CHOLECALCIFEROL (VITAMIN D3) 400 UNIT TABLET (FP) PO SCH (11:38)
[2016-11-25] MEDS: buPROPion HCL 75 MG TABLET PO SCH (11:38)
--- NOTE | 2016-11-25 14:08 | PN ---
Physical Exam: SUBJECTIVE: Patient seen and examined. Loose cough. OBJECTIVE: Vital Signs Period Temp Pulse Resp BP Sys/Orantes Pulse Ox Last 24 Hr 97.3 F-97.8 F 64-76 20-20 107-118/59-72 94-98 GENERAL: The patient is awake, alert, and fully oriented, in no acute distress. HEAD: Normal with no signs of trauma. EYES: PERRL, extraocular movements intact, sclera anicteric, conjunctiva clear. No ptosis. LUNGS: Crackles nursing home up on the right HEART: Regular rate and rhythm, S1, S2 without murmur, rub or gallop. ABDOMEN: Soft, nontender, nondistended, normoactive bowel sounds, no guarding, no rebound EXTREMITIES: 2+ pulses, warm, well-perfused, no edema. NEUROLOGICAL: Cranial nerves II through XII grossly intact. Normal speech, gait not observed. Laboratory Results - last 24 hr 11/24/16 11/24/16 11/25/16 20:40 23:55 05:30 WBC RBC Hgb Hct MCV MCHC RDW Plt Count MPV Neutrophils % Lymphocytes % Monocytes % Eosinophils % Basophils % INR 2.80 H Sodium Potassium Chloride Carbon Dioxide Anion Gap BUN Creatinine POC Glucometer 157 125 Random Glucose Calcium 11/25/16 11/25/16 11/25/16 06:07 06:07 11:43 WBC 7.9 RBC 4.73 Hgb 12.5 Hct 38.8 MCV 81.9 MCHC 32.2 RDW 18.1 H Plt Count 190 MPV 8.6 Neutrophils % 68.1 Lymphocytes % 18.6 D Monocytes % 10.6 H Eosinophils % 1.9 Basophils % 0.8 INR Sodium 137 Potassium 3.0 L Chloride 92 L Carbon Dioxide 37 H Anion Gap 8 BUN 64 H Creatinine 2.3 H POC Glucometer 168 Random Glucose 136 H Calcium 8.9 Active Medications Generic Name Dose Route Start Last Admin Trade Name Freq PRN Reason Stop Dose Admin Acetaminophen 650 mg 11/24/16 17:44 Tylenol - PO Q4H PRN FEVER OR PAIN Albuterol/Ipratropium 1 amp 11/24/16 18:00 11/25/16 11:30 Duoneb - NEB 1 amp QIDR [facility]ON Administration Allopurinol 100 mg 11/25/16 10:00 11/25/16 11:38 Zyloprim - PO 100 mg DAILY [facility] Administration Ascorbic Acid 1,000 mg 11/25/16 10:00 11/25/16 11:37 Vitamin C - PO 1,000 mg DAILY [facility] Administration Atorvastatin Calcium 40 mg 11/24/16 22:00 11/25/16 00:04 Lipitor - PO 40 mg HS [facility]ON Administration Bupropion HCl 75 mg 11/25/16 10:00 11/25/16 11:38 Wellbutrin - PO 75 mg DAILY [facility] Administration Carvedilol 6.25 mg 11/24/16 22:00 11/25/16 11:38 Coreg - PO 6.25 mg BID QU[facility]ON Administration Cholecalciferol 1,000 unit 11/25/16 10:00 11/25/16 11:38 Vitamin D3 - PO 1,000 unit DAILY [facility] Administration Clopidogrel Bisulfate 75 mg 11/25/16 10:00 11/25/16 11:37 Plavix - PO 75 mg DAILY [facility] Administration Docusate Sodium 100 mg 11/24/16 22:00 11/25/16 11:37 Colace - PO 100 mg BID [facility] Administration Ferrous Sulfate 325 mg 11/25/16 10:00 11/25/16 11:37 Feosol - PO 325 mg Q2D [facility] Administration Guaifenesin 600 mg 11/24/16 22:00 11/25/16 11:38 Mucinex - PO 600 mg BID [facility] Administration Guaifenesin 10 ml 11/25/16 13:10 Robitussin Dm - PO Q6H PRN COUGH Milrinone Lactate/Dextrose 100 mls @ 9.859 mls/hr 11/25/16 00:24 11/25/16 08:11 Milrinone 20mg/100ml Ivpb - IVPB 9.859 mls/hr TITR QUINTON Administration Protocol 0.35 MCG/KG/MIN Insulin Aspart 1 vial 11/24/16 22:00 11/25/16 11:47 Novolog Vial Sliding Scale - SQ 2 units ACHS [facility]ON Administration Protocol Multivitamins/Minerals/Vitamin C 1 tab 11/25/16 10:00 11/25/16 11:37 Tab-A-Vit - PO 1 tab DAILY [facility] Administration Ondansetron HCl 4 mg 11/24/16 17:44 Zofran Injection IVPB Q6H PRN NAUSEA Potassium Chloride 20 meq 11/24/16 22:00 11/25/16 06:09 K-Dur - PO 20 meq TID QU[facility]ON Administration Ranitidine HCl 75 mg 11/25/16 10:00 11/25/16 11:37 Zantac - PO 75 mg DAILY [facility] Administration Torsemide 40 mg 11/24/16 20:00 11/25/16 06:08 Demadex - PO 40 mg BIDLASIX [facility] Administration Warfarin Sodium 4 mg 11/25/16 18:00 Coumadin - PO DAILY@1800 [facility] ASSESSMENT/PLAN: 76-year-old man with a history of COPD, chronic hypoxic respiratory failure, end -stage chronic systolic heart failure, atrial fibrillation, CAD, [place], HTN, hyperlipidemia, PAD, type 2 DM, stage 4 CKD, and BPH, admitted for cough. 1. Hypokalemia, chronic - Replete potassium PO 40mg x 3 doses 2. Cough, possibly secondary to bronchitis --no fever, no leukocytosis - Completed courses of Zithromax and Amoxicillin as outpatient - IV steroids started by pulmonary - Robitussin 3. COPD - DuoNeb as needed 4. Chronic systolic heart failure, end-stage - Stable; CXR shows mild pulmonary venous congestion - Continue Coreg, Torsemide, Milrinone - Has AICD 5. Chronic hypoxic respiratory failure - Continue oxygen to maintain saturation > 90% 6. Permanent atrial fibrillation - Continue Coreg, Coumadin (INR therapeutic 2.8) 7. CAD, history of [place] - Continue Coreg, Plavix, Lipitor 8. HTN - Continue Coreg 9. Hyperlipidemia - Continue Lipitor 10. PAD 11. Type 2 diabetes mellitus - Fingersticks with Novolog sliding scale 12. Stage 4 CKD - Stable 13. BPH Visit type - Emergency Visit Emergency Visit: Yes ED Registration Date: 11/25/16 Care time: The patient presented to the Emergency Department on the above date and was hospitalized for further evaluation of their emergent condition. - New Patient This patient is new to me today: Yes Date on this admission: 11/25/16 - Critical Care Critical Care patient: No
--- NOTE | 2016-11-25 15:01 | PN ---
Progress Note (short form) - Note Progress Note: PULMONARY CONSULTATION DICTATED 11/25/16 IMP CHRONIC HYPOXEMIC ,HYPERCAPNEIC RESPIRATORY FAILURE COPD END STAGE O2 DEPENDENT BRONCHITIS CHF S/P ICD ON MILRINONE PUMP ASHD S/P [place],CABG CKD AFIB PVD BPH PLAN INHALED BRONCHODILATORS SHORT COURSE OF STEROIDS NASAL O2 DIURETICS STRICT I+OS MONITOR LYTES,RENAL FUNCTION F/U CHEST X-RAY DR MONTGOMERY Problem List - Problems (1) CHF (congestive heart failure) Code(s): I50.9 - HEART FAILURE, UNSPECIFIED Qualifiers: Congestive heart failure type: combined Congestive heart failure chronicity: unspecified congestive heart failure chronicity Qualified Code(s ): I50.40 - Unspecified combined systolic (congestive) and diastolic (congestive ) heart failure (2) AICD (automatic cardioverter/defibrillator) present Code(s): Z95.810 - PRESENCE OF AUTOMATIC (IMPLANTABLE) CARDIAC DEFIBRILLATOR (3) Acute and chronic respiratory failure ([id number]) Code(s): J96.20 - ACUTE AND CHR RESP FAILURE, UNSP W HYPOXIA OR HYPERCAPNIA (4) Acute on chronic renal insufficiency Code(s): N28.9 - DISORDER OF KIDNEY AND URETER, UNSPECIFIED N18.9 - CHRONIC KIDNEY DISEASE, UNSPECIFIED (5) Atrial fibrillation Code(s): I48.91 - UNSPECIFIED ATRIAL FIBRILLATION Qualifiers: Atrial fibrillation type: chronic Qualified Code(s): I48.2 - Chronic atrial fibrillation (6) CAD (coronary artery disease) Code(s): I25.10 - ATHSCL HEART DISEASE OF [place] CORONARY ARTERY W/O ANG PCTRS (7) CKD (chronic kidney disease) Code(s): N18.9 - CHRONIC KIDNEY DISEASE, UNSPECIFIED Qualifiers: Chronic kidney disease stage: unspecified stage Qualified Code(s): N18.9 - Chronic kidney disease, unspecified (8) COPD (chronic obstructive pulmonary disease) Code(s): J44.9 - CHRONIC OBSTRUCTIVE PULMONARY DISEASE, UNSPECIFIED Qualifiers : COPD type: unspecified COPD Qualified Code(s): J44.9 - Chronic obstructive pulmonary disease, unspecified (9) Cardiomyopathy Code(s): I42.9 - CARDIOMYOPATHY, UNSPECIFIED (10) Diabetes mellitus, insulin dependent (IDDM), uncontrolled Code(s): E10.65 - TYPE 1 DIABETES MELLITUS WITH HYPERGLYCEMIA (11) Dyspnea on exertion Code(s): R06.09 - OTHER FORMS OF DYSPNEA
--- NOTE | 2016-11-25 17:18 | CONS ---
DATE OF CONSULTATION: 11/25/2016 DATE OF DICTATION: 11/25/2016 REFERRING PHYSICIAN: Jorgito Cerna M.D. HISTORY OF PRESENT ILLNESS: The patient is a 76-year-old male known to me from previous hospitalization, lost to followup. PAST MEDICAL HISTORY: Advanced COPD with chronic hypoxemic respiratory failure, chronic congestive heart failure end stage, status post AICD on milrinone pump, atrial fibrillation, hyperlipidemia, hypertension, insulin-dependent diabetes, ASHD status post CABG in 2012, BPH, peripheral vascular disease, admitted to [facility] on November 24 with complaint of 2-week history of increasing shortness of breath, cough productive of yellow sputum. Patient states the past couple weeks, he says he started developing cough productive of yellow sputum. Cough is increased at night. States he was placed on antibiotic therapy but says this persisted, at which time he presented to the emergency room. On admission, he was noted on chest x-ray to have increasing pulmonary vascular congestion. He was admitted to the floor. He was initially started on some Lasix. He also started inhaled bronchodilators. Mild pulmonary congestion. He was continued on his home torsemide. Patient states his shortness of breath has been worsening over the past couple of weeks with increasing dyspnea on exertion. He denies hemoptysis, denies any chest pains or palpitations, denies any nausea, vomiting, diaphoreses, denies any recent travel, denies any DVT or PE in the past. He has a history of tobacco use. PAST MEDICAL HISTORY: Past medical history again includes insulin-dependent diabetes mellitus, COPD O2 dependent, hyperlipidemia, hypertension, atrial fibrillation on Coumadin, ASHD status post CABG, CHF on milrinone pump, status post ICD placement, BPH, peripheral vascular disease. SOCIAL HISTORY: Retired. History of tobacco use, approximately 2 packs per day for many years, quit in 2010. No occupational exposures. CURRENT MEDICATIONS: Include Zofran, Tylenol, Coumadin, Wellbutrin, Zyloprim, robitussin DM, DuoNeb, Coreg, milrinone, Colace, Mucinex, Zantac, Lipitor, Feosol, Demadex, Plavix, K-Dur, vitamin C and vitamin D3. REVIEW OF SYSTEMS: Positive orthopnea. Positive dyspnea. Positive cough. Positive chest congestion. Positive wheezing. No chest pain. No palpitations. No GI complaints. No abdominal pain. No lower extremity edema. PHYSICAL EXAMINATION: General: The patient is a well-developed, well-nourished male, awake, alert, in no acute distress. Vital signs: He is currently afebrile. Blood pressure is 113/84, respiratory rate is 18, O2 saturation is 98% on 2 L. HEENT: Head is normocephalic, atraumatic. Neck: Supple. Heart: Irregular. Normal S1, S2. Chest: Bilateral expiratory wheezes. Abdomen: Soft. Bowel sounds positive. Extremities: No cyanosis, edema. LABORATORY: WBC 7.9, hemoglobin 12.5, hematocrit 38.8 with a platelet count of 190,000, INR is 2.80. No blood gases. BUN 64, creatinine 2.3, potassium 3.0. BNP 3380. Chest x-ray reveals cardiomegaly, mild pulmonary vascular congestion. IMPRESSION: Chronic hypoxemic respiratory failure secondary to multiple factors. 1. Probably mild decompensated chronic obstructive pulmonary disease/acute bronchitis. 2. End-stage congestive heart failure, mild decompensation status post implantable cardioverter defibrillator, currently on milrinone drip. 3. Insulin-dependent diabetes mellitus. 4. Atrial fibrillation. 5. Atherosclerotic heart disease status post coronary artery bypass graft. 6. Peripheral vascular disease and [id number]-[id number] renal failure and kidney disease. PLAN: Short course of steroids, inhaled bronchodilators, supplemental O2, obtain followup chest x-ray, continue with diuretics. Continue to monitor blood sugars. Will follow closely, monitor renal function. BRADFORD MONTGOMERY M.D. [id number] MTDD
[2016-11-25] MEDS: methylPREDNISolone NA SUCC 40 MG/1 ML VIAL IVPB SCH ×2 (17:49→22:05)
[2016-11-25] MEDS: TIOTROPIUM BROMIDE 18 MCG/INH (DEVICE W/ 5 CAPSULES) IH SCH (17:49)
[2016-11-25] MEDS ORDERED: WARFARIN NA 2 MG TABLET (UD) PO SCH (18:00)
[2016-11-25 19:34] LABS: INR 2.82 (0.82-1.09); PROTHROMBIN TIME (PATIENT) 31.7 SEC (9.98-11.88)
[2016-11-25] MEDS ORDERED: PT OWN MED DRAWER 7, Y5N ONE (22:07)
[2016-11-25] MEDS: BUDESONIDE/FORMETEROL FUMARATE 80/4.5 mcg INHALER IH SCH (22:08)
[2016-11-26] MEDS: methylPREDNISolone NA SUCC 40 MG/1 ML VIAL IVPB SCH ×4 (03:50→21:28)
[2016-11-26] MEDS: MILRINONE 20MG/100ML IVPB - 100 ML IVPB SCH ×2 (03:51→14:39)
[2016-11-26] MEDS: POTASSIUM CHLORIDE TABS 20 MEQ TABLET.ER (FP) PO SCH ×2 (03:51→06:37)
[2016-11-26] MEDS: INSULIN SLIDING SCALE (NOVOLOG) 1 VIAL SQ SCH ×4 (06:37→22:23)
[2016-11-26] MEDS: TORSEMIDE 20 MG TABLET (FP) PO SCH ×2 (06:37→14:33)
[2016-11-26 08:11] LABS: BASOPHIL 0.1 % (0-2.0); MCH 26.6 pg (25.7-33.7); MCHC 32.7 g/dl (32.0-35.9); MEAN CELL VOLUME 81.6 fl (80-96); NEUTROPHILS 87.9 % (42.8-82.8); PLATELET COUNT 188 K/MM3 (134-434); RDW 17.7 % (11.9-15.9); WHITE BLOOD COUNT 4.4 K/mm3 (4.0-10.0)
[2016-11-26] MEDS: MULTIVITAMINS (DAILY MVI) TABLET (FP) PO SCH (09:00)
[2016-11-26] MEDS: CLOPIDOGREL BISULFATE 75 MG TABLET (FP) PO SCH (09:00)
[2016-11-26] MEDS: ALLOPURINOL 100 MG TABLET (FP) PO SCH (09:00)
[2016-11-26] MEDS: ASCORBIC ACID 500 MG TABLET (FP) PO SCH (09:01)
[2016-11-26] MEDS: DOCUSATE SODIUM 100 MG CAPSULE (FP) PO SCH ×2 (09:01→21:29)
[2016-11-26] MEDS: guaiFENesin 600 MG TABLET.ER (FP) PO SCH ×2 (09:01→21:29)
[2016-11-26] MEDS: BUDESONIDE/FORMETEROL FUMARATE 80/4.5 mcg INHALER IH SCH ×2 (09:01→22:23)
[2016-11-26] MEDS: buPROPion HCL 75 MG TABLET PO SCH (09:01)
[2016-11-26] MEDS: RANITIDINE HCL 150 MG TABLET (FP) PO SCH (09:01)
[2016-11-26] MEDS: CARVEDILOL 6.25 MG TABLET (FP) PO SCH ×2 (09:01→21:29)
[2016-11-26] MEDS: TIOTROPIUM BROMIDE 18 MCG/INH (DEVICE W/ 5 CAPSULES) IH SCH (09:01)
[2016-11-26] MEDS ORDERED: PT OWN MED DRAWER 7, Y5N ONE (09:03)
[2016-11-26 09:15] LABS: ALBUMIN 3.6 g/dl (3.4-5.0); BILIRUBIN,TOTAL 0.7 mg/dL (0.2-1.0); CALCIUM 8.9 mg/dL (8.5-10.1); CREATININE 2.4 mg/dL (0.7-1.3); MAGNESIUM 2.8 mg/dL (1.8-2.4); TOT PROT 8.1 g/dl (6.4-8.2)
--- NOTE | 2016-11-26 10:22 | PN ---
Progress Note (short form) - Note Progress Note: s: feeling better, less cough/sob, no cp palps dizzy le edema o: Vital Signs Period Temp Pulse Resp BP Sys/Orantes Pulse Ox Last 24 Hr 97.3 F-98.5 F 74-76 18-20 103-129/55-84 95-96 NAD, calm JVD flat, neck supple RRR nl s1, s2 no m/r/g. cta bl, nl effort no le e/c/c aaox3 no jaundice diaphoresis Current Medications Generic Name Dose Route Start Last Admin Trade Name Freq PRN Reason Stop Dose Admin Acetaminophen 650 mg 11/24/16 17:44 Tylenol - PO Q4H PRN FEVER OR PAIN Albuterol Sulfate 1 amp 11/25/16 15:06 Ventolin 0.083% Nebulizer Soln - NEB Q4H PRN SHORT OF BREATH/WHEEZING Allopurinol 100 mg 11/25/16 10:00 11/26/16 09:00 Zyloprim - PO 100 mg DAILY QU[facility]ON Administration Ascorbic Acid 1,000 mg 11/25/16 10:00 11/26/16 09:01 Vitamin C - PO 1,000 mg DAILY QUINTON Administration Atorvastatin Calcium 40 mg 11/24/16 22:00 11/25/16 22:04 Lipitor - PO 40 mg HS QUINTON Administration Budesonide/Formoterol Fumarate 2 puff 11/25/16 22:00 11/26/16 09:01 Symbicort 80/4.5mcg - IH 2 puff BID QUINTON Administration Bupropion HCl 75 mg 11/25/16 10:00 11/26/16 09:01 Wellbutrin - PO 75 mg DAILY QUINTON Administration Carvedilol 6.25 mg 11/24/16 22:00 11/26/16 09:01 Coreg - PO 6.25 mg BID QUINTON Administration Cholecalciferol 1,000 unit 11/25/16 10:00 11/25/16 11:38 Vitamin D3 - PO 1,000 unit DAILY QU[facility]ON Administration Clopidogrel Bisulfate 75 mg 11/25/16 10:00 11/26/16 09:00 Plavix - PO 75 mg DAILY QUINTON Administration Docusate Sodium 100 mg 11/24/16 22:00 11/26/16 09:01 Colace - PO 100 mg BID QUINTON Administration Ferrous Sulfate 325 mg 11/25/16 10:00 11/25/16 11:37 Feosol - PO 325 mg Q2D QU[facility]ON Administration Guaifenesin 600 mg 11/24/16 22:00 11/26/16 09:01 Mucinex - PO 600 mg BID QU[facility]ON Administration Guaifenesin 10 ml 11/25/16 13:10 Robitussin Dm - PO Q6H PRN COUGH Milrinone Lactate/Dextrose 100 mls @ 9.859 mls/hr 11/25/16 00:24 11/26/16 03:51 Milrinone 20mg/100ml Ivpb - IVPB 9.859 mls/hr TITR QUINTON Administration Protocol 0.35 MCG/KG/MIN Insulin Aspart 1 vial 11/24/16 22:00 11/26/16 06:37 Novolog Vial Sliding Scale - SQ 8 units ACHS QUINTON Administration Protocol Methylprednisolone Sodium Succinate 40 mg 11/25/16 15:15 11/26/16 09:01 Solu-Medrol - IVPB 40 mg Q6H-IV [facility]ON Administration Multivitamins/Minerals/Vitamin C 1 tab 11/25/16 10:00 11/26/16 09:00 Tab-A-Vit - PO 1 tab DAILY [facility]ON Administration Ondansetron HCl 4 mg 11/24/16 17:44 Zofran Injection IVPB Q6H PRN NAUSEA Ranitidine HCl 75 mg 11/25/16 10:00 11/26/16 09:01 Zantac - PO 75 mg DAILY [facility]ON Administration Tiotropium [place] 1 puff 11/25/16 15:15 11/26/16 09:01 Spiriva - IH 1 puff DAILY QUINTON Administration Torsemide 40 mg 11/24/16 20:00 11/26/16 06:37 Demadex - PO 40 mg BIDLASIX [facility]ON Administration Warfarin Sodium 4 mg 11/25/16 18:00 11/25/16 22:04 Coumadin - PO 4 mg DAILY@1800 QUINTON Administration CBC, BMP 11/26/16 06:07 11/26/16 06:07 ecg 11/24/16: vp hr diversity echo 05/2016: sev lve, global hk, sev dec lvef, mild rve, nl rv fcn, estefania, mild- mod mr, mv ring, tv ring, mild tr, mild pr, mild phtn, ivc mild dil cxr: mild congestion (chronic finding) tele: vp hr diversity a/p: 76 year old gentleman with PMH of IDDM, COPD (O2 dependant) HTN, HLD, Afib (on coumadin), CAD s/p CABG 2012, end stage CHF with ICD placement (on milrinone pump), PVD, BPH here with productive cough. cough: -no signs vol overload, pulm edema -cxr with chronic findings, bnp at baseline, wt at baseline -likely due to URI/copd, sxs improving with resp treatment, plans per pmd/pulm chronic end stage systolic heart failure s/p ICD, on home milrinone infusion: - dry wt approx 211 lbs, currently near this value (below) - cxr with chronic findings, bnp at baseline - vol status seems stable, cont home torsemide 40 po bid as doing - cont milrinone at patient's home maintenance dose (on chronic infusion destination therapy)--0.35 mcg/kg/min. - cont home coreg - recent office icd check with stable function afib - currently rate controlled on coreg - cont coumadin per INR PVD - con't AC, statin. CAD s/p CABG - No anginal symptoms, no signs acs. Con't home ac, atorvastatin, coreg HTN: controlled on coreg HLD: con't statin. CKD - close to baseline
[2016-11-26 10:44] LABS: INR 3.12 (0.82-1.09); PROTHROMBIN TIME (PATIENT) 35.1 SEC (9.98-11.88)
[2016-11-26] MEDS: CHOLECALCIFEROL (VITAMIN D3) 400 UNIT TABLET (FP) PO SCH (11:19)
--- NOTE | 2016-11-26 14:22 | PN ---
Progress Note (short form) - Note Progress Note: OOB to chair. No acute events overnight. Dry cough. No CP. Intake & Output 11/23/16 11/24/16 11/25/16 11/26/16 23:59 23:59 23:59 23:59 Intake Total 60 200 Output Total 850 450 Balance -790 -250 Weight 207 lb 205 lb 12.8 oz 208 lb 6.4 oz Last Vital Signs Temp Pulse Resp BP Pulse Ox 97.7 F 76 18 116/67 96 11/26/16 14:36 11/26/16 14:36 11/26/16 14:36 11/26/16 14:36 11/26/16 10:00 Active Medications Acetaminophen (Tylenol -) 650 mg PO Q4H PRN PRN Reason: FEVER OR PAIN Albuterol Sulfate (Ventolin 0.083% Nebulizer Soln -) 1 amp NEB Q4H PRN PRN Reason: SHORT OF BREATH/WHEEZING Allopurinol (Zyloprim -) 100 mg PO DAILY [facility] Last Admin: 11/26/16 09:00 Dose: 100 mg Ascorbic Acid (Vitamin C -) 1,000 mg PO DAILY [facility] Last Admin: 11/26/16 09:01 Dose: 1,000 mg Atorvastatin Calcium (Lipitor -) 40 mg PO HS [facility] Last Admin: 11/25/16 22:04 Dose: 40 mg Budesonide/Formoterol Fumarate (Symbicort 80/4.5mcg -) 2 puff IH BID [facility] Last Admin: 11/26/16 09:01 Dose: 2 puff Bupropion HCl (Wellbutrin -) 75 mg PO DAILY [facility] Last Admin: 11/26/16 09:01 Dose: 75 mg Carvedilol (Coreg -) 6.25 mg PO BID [facility] Last Admin: 11/26/16 09:01 Dose: 6.25 mg Cholecalciferol (Vitamin D3 -) 1,000 unit PO DAILY [facility] Last Admin: 11/26/16 11:19 Dose: 1,000 unit Clopidogrel Bisulfate (Plavix -) 75 mg PO DAILY [facility] Last Admin: 11/26/16 09:00 Dose: 75 mg Docusate Sodium (Colace -) 100 mg PO BID [facility] Last Admin: 11/26/16 09:01 Dose: 100 mg Ferrous Sulfate (Feosol -) 325 mg PO Q2D [facility] Last Admin: 11/25/16 11:37 Dose: 325 mg Guaifenesin (Mucinex -) 600 mg PO BID [facility] Last Admin: 11/26/16 09:01 Dose: 600 mg Guaifenesin (Robitussin Dm -) 10 ml PO Q6H PRN PRN Reason: COUGH Milrinone Lactate/Dextrose (Milrinone 20mg/100ml Ivpb -) 100 mls @ 9.859 mls/ hr IVPB TITR QUINTON; 0.35 MCG/KG/MIN PRN Reason: Protocol Last Admin: 11/26/16 03:51 Dose: 9.859 mls/hr Insulin Aspart (Novolog Vial Sliding Scale -) 1 vial SQ ACHS [facility] PRN Reason: Protocol Last Admin: 11/26/16 11:20 Dose: 8 units Methylprednisolone Sodium Succinate (Solu-Medrol -) 40 mg IVPB Q6H-IV [facility] Last Admin: 11/26/16 14:33 Dose: 40 mg Multivitamins/Minerals/Vitamin C (Tab-A-Vit -) 1 tab PO DAILY [facility] Last Admin: 11/26/16 09:00 Dose: 1 tab Ondansetron HCl (Zofran Injection) 4 mg IVPB Q6H PRN PRN Reason: NAUSEA Ranitidine HCl (Zantac -) 75 mg PO DAILY [facility] Last Admin: 11/26/16 09:01 Dose: 75 mg Tiotropium [place] (Spiriva -) 1 puff IH DAILY [facility] Last Admin: 11/26/16 09:01 Dose: 1 puff Torsemide (Demadex -) 40 mg PO BIDLASIX [facility] Last Admin: 11/26/16 14:33 Dose: 40 mg Warfarin Sodium (Coumadin -) 4 mg PO DAILY@1800 [facility] Last Admin: 11/25/16 22:04 Dose: 4 mg GENERAL: Awake, NAD HEAD: Normal with no signs of trauma. EYES: sclera anicteric, conjunctiva clear. LUNGS: Bibasilar rales R > L HEART: Regular rate and rhythm, S1, S2 without murmur, rub or gallop. ABDOMEN: Soft, nontender, nondistended, normoactive bowel sounds, no guarding, no rebound EXTREMITIES: 2+ pulses, warm, well-perfused, no edema. NEUROLOGICAL: Non-focal Laboratory Results - last 24 hr 11/25/16 11/25/16 11/25/16 15:42 18:05 22:03 WBC RBC Hgb Hct MCV MCHC RDW Plt Count MPV Neutrophils % Lymphocytes % Monocytes % Eosinophils % Basophils % INR 2.82 H Sodium Potassium Chloride Carbon Dioxide Anion Gap BUN Creatinine Creat Clearance w eGFR POC Glucometer 90 327 Random Glucose Calcium Magnesium Total Bilirubin AST ALT Alkaline Phosphatase Total Protein Albumin 11/26/16 11/26/16 11/26/16 05:29 06:07 06:07 WBC 4.4 D RBC 4.73 Hgb 12.6 Hct 38.6 MCV 81.6 MCHC 32.7 RDW 17.7 H Plt Count 188 MPV 9.0 Neutrophils % 87.9 H D Lymphocytes % 11.0 D Monocytes % 1.0 L D Eosinophils % 0.0 D Basophils % 0.1 INR Sodium 134 L Potassium 4.0 D Chloride 89 L Carbon Dioxide 32 Anion Gap 13 BUN 72 H Creatinine 2.4 H Creat Clearance w eGFR 26.31 POC Glucometer 317 Random Glucose 336 H* D Calcium 8.9 Magnesium 2.8 H Total Bilirubin 0.7 AST 20 ALT 22 Alkaline Phosphatase 145 H Total Protein 8.1 Albumin 3.6 11/26/16 11/26/16 10:00 11:18 WBC RBC Hgb Hct MCV MCHC RDW Plt Count MPV Neutrophils % Lymphocytes % Monocytes % Eosinophils % Basophils % INR 3.12 H Sodium Potassium Chloride Carbon Dioxide Anion Gap BUN Creatinine Creat Clearance w eGFR POC Glucometer 332 Random Glucose Calcium Magnesium Total Bilirubin AST ALT Alkaline Phosphatase Total Protein Albumin Problem List - Problems (1) CHF (congestive heart failure) Code(s): I50.9 - HEART FAILURE, UNSPECIFIED Qualifiers: Congestive heart failure type: combined Congestive heart failure chronicity: unspecified congestive heart failure chronicity Qualified Code(s ): I50.40 - Unspecified combined systolic (congestive) and diastolic (congestive ) heart failure (2) AICD (automatic cardioverter/defibrillator) present Code(s): Z95.810 - PRESENCE OF AUTOMATIC (IMPLANTABLE) CARDIAC DEFIBRILLATOR (3) Acute and chronic respiratory failure ([id number]) Code(s): J96.20 - ACUTE AND CHR RESP FAILURE, UNSP W HYPOXIA OR HYPERCAPNIA (4) Acute on chronic renal insufficiency Code(s): N28.9 - DISORDER OF KIDNEY AND URETER, UNSPECIFIED N18.9 - CHRONIC KIDNEY DISEASE, UNSPECIFIED (5) Atrial fibrillation Code(s): I48.91 - UNSPECIFIED ATRIAL FIBRILLATION Qualifiers: Atrial fibrillation type: chronic Qualified Code(s): I48.2 - Chronic atrial fibrillation (6) CAD (coronary artery disease) Code(s): I25.10 - ATHSCL HEART DISEASE OF [place] CORONARY ARTERY W/O ANG PCTRS (7) CKD (chronic kidney disease) Code(s): N18.9 - CHRONIC KIDNEY DISEASE, UNSPECIFIED Qualifiers: Chronic kidney disease stage: unspecified stage Qualified Code(s): N18.9 - Chronic kidney disease, unspecified (8) COPD (chronic obstructive pulmonary disease) Code(s): J44.9 - CHRONIC OBSTRUCTIVE PULMONARY DISEASE, UNSPECIFIED Qualifiers : COPD type: unspecified COPD Qualified Code(s): J44.9 - Chronic obstructive pulmonary disease, unspecified (9) Cardiomyopathy Code(s): I42.9 - CARDIOMYOPATHY, UNSPECIFIED (10) Diabetes mellitus, insulin dependent (IDDM), uncontrolled Code(s): E10.65 - TYPE 1 DIABETES MELLITUS WITH HYPERGLYCEMIA (11) Dyspnea on exertion Code(s): R06.09 - OTHER FORMS OF DYSPNEA IMP CHRONIC HYPOXEMIC ,HYPERCAPNEIC RESPIRATORY FAILURE COPD END STAGE O2 DEPENDENT BRONCHITIS CHF S/P ICD ON MILRINONE PUMP ASHD S/P [place],CABG CKD AFIB PVD BPH PLAN BD TX SHORT COURSE OF STEROIDS NASAL O2 DIURETICS STRICT I+OS MONITOR LYTES,RENAL FUNCTION Dr Marie
--- NOTE | 2016-11-26 15:05 | PN ---
Progress Note (short form) - Note Progress Note: Patient with a past history of end stage systolic heart failure onMilrinone IV, CABG, HTN, Hyperlipidemia, Renal failure, DM on insulin and renal failure is sitting up for the first time and feels better.On coumadin; INR noted. No chest pain SOB on movement Improved pedal edema On Exam: Vital Signs Period Temp Pulse Resp BP Sys/Orantes Pulse Ox Last 24 Hr 97.3 F-98.5 F 75-76 18-20 103-129/55-74 95-96 Alert Chest: some rhonchi and decreased breath sounds both bases cor:Bradycardic Abd; distended; non tender Ext: 1+ edema IMP: End Stage Systolic Heart Failure Renal Failure ASHD S/P CABG Hypertension DM on Insulin not controlled Plan: Followup lab encourage OOB Continue IV Milrinone
[2016-11-26] MEDS: WARFARIN NA 2 MG TABLET (UD) PO SCH (18:36)
[2016-11-26] MEDS: ATORVASTATIN CA 40 MG TABLET (FP) PO SCH (21:29)
[2016-11-26] MEDS: guaiFENesin/D-METHORPHAN HB 10 ML UNIT-DOSE CUPS PO PRN (22:23)
[2016-11-27] MEDS: MILRINONE 20MG/100ML IVPB - 100 ML IVPB SCH ×2 (00:20→21:41)
[2016-11-27] MEDS: methylPREDNISolone NA SUCC 40 MG/1 ML VIAL IVPB SCH ×4 (02:50→21:40)
[2016-11-27] MEDS: INSULIN SLIDING SCALE (NOVOLOG) 1 VIAL SQ SCH ×4 (06:26→21:40)
[2016-11-27] MEDS: TORSEMIDE 20 MG TABLET (FP) PO SCH (06:26)
[2016-11-27 08:31] LABS: INR 3.99 (0.82-1.09); PROTHROMBIN TIME (PATIENT) 45.1 SEC (9.98-11.88)
[2016-11-27 09:02] LABS: CALCIUM 8.5 mg/dL (8.5-10.1); MAGNESIUM 2.7 mg/dL (1.8-2.4)
[2016-11-27 09:08] LABS: CREATININE 2.3 mg/dL (0.7-1.3)
[2016-11-27] MEDS ORDERED: PT OWN MED DRAWER 7, Y5N ONE ×2 (10:39→22:43)
[2016-11-27] MEDS: ASCORBIC ACID 500 MG TABLET (FP) PO SCH (10:44)
[2016-11-27] MEDS: CLOPIDOGREL BISULFATE 75 MG TABLET (FP) PO SCH (10:44)
[2016-11-27] MEDS: guaiFENesin 600 MG TABLET.ER (FP) PO SCH ×2 (10:44→21:41)
[2016-11-27] MEDS: CARVEDILOL 6.25 MG TABLET (FP) PO SCH ×2 (10:44→21:40)
[2016-11-27] MEDS: ALLOPURINOL 100 MG TABLET (FP) PO SCH (10:44)
[2016-11-27] MEDS: MULTIVITAMINS (DAILY MVI) TABLET (FP) PO SCH (10:44)
[2016-11-27] MEDS: FERROUS SO4 325 MG TABLET (FP) PO SCH (10:44)
[2016-11-27] MEDS: buPROPion HCL 75 MG TABLET PO SCH (10:44)
[2016-11-27] MEDS: DOCUSATE SODIUM 100 MG CAPSULE (FP) PO SCH ×2 (10:45→21:40)
[2016-11-27] MEDS: TIOTROPIUM BROMIDE 18 MCG/INH (DEVICE W/ 5 CAPSULES) IH SCH (10:45)
[2016-11-27] MEDS: BUDESONIDE/FORMETEROL FUMARATE 80/4.5 mcg INHALER IH SCH ×2 (10:46→21:41)
[2016-11-27] MEDS: CHOLECALCIFEROL (VITAMIN D3) 400 UNIT TABLET (FP) PO SCH (10:46)
[2016-11-27] MEDS: RANITIDINE HCL 150 MG TABLET (FP) PO SCH (11:16)
[2016-11-27] MEDS ORDERED: INSULIN (NOVOLOG) ASPART 100 UNITS/ML 10ML VIAL ONE (12:12)
--- NOTE | 2016-11-27 12:44 | PN ---
Progress Note (short form) - Note Progress Note: CC: sob s: less cough/sob, but now with weight gain, abdominal distension, worsened LE edema. no cp, palps, dizziness. o: Current Medications Acetaminophen (Tylenol -) 650 mg PO Q4H PRN PRN Reason: FEVER OR PAIN Albuterol Sulfate (Ventolin 0.083% Nebulizer Soln -) 1 amp NEB Q4H PRN PRN Reason: SHORT OF BREATH/WHEEZING Allopurinol (Zyloprim -) 100 mg PO DAILY [facility] Last Admin: 11/27/16 10:44 Dose: 100 mg Ascorbic Acid (Vitamin C -) 1,000 mg PO DAILY [facility] Last Admin: 11/27/16 10:44 Dose: 1,000 mg Atorvastatin Calcium (Lipitor -) 40 mg PO HS [facility] Last Admin: 11/26/16 21:29 Dose: 40 mg Budesonide/Formoterol Fumarate (Symbicort 80/4.5mcg -) 2 puff IH BID [facility] Last Admin: 11/27/16 10:46 Dose: 2 puff Bupropion HCl (Wellbutrin -) 75 mg PO DAILY [facility] Last Admin: 11/27/16 10:44 Dose: 75 mg Carvedilol (Coreg -) 6.25 mg PO BID [facility] Last Admin: 11/27/16 10:44 Dose: 6.25 mg Cholecalciferol (Vitamin D3 -) 1,000 unit PO DAILY [facility] Last Admin: 11/27/16 10:46 Dose: 1,000 unit Clopidogrel Bisulfate (Plavix -) 75 mg PO DAILY [facility] Last Admin: 11/27/16 10:44 Dose: 75 mg Docusate Sodium (Colace -) 100 mg PO BID [facility] Last Admin: 11/27/16 10:45 Dose: 100 mg Ferrous Sulfate (Feosol -) 325 mg PO Q2D [facility] Last Admin: 11/27/16 10:44 Dose: 325 mg Guaifenesin (Mucinex -) 600 mg PO BID [facility] Last Admin: 11/27/16 10:44 Dose: 600 mg Guaifenesin (Robitussin Dm -) 10 ml PO Q6H PRN PRN Reason: COUGH Last Admin: 11/26/16 22:23 Dose: 10 ml Milrinone Lactate/Dextrose (Milrinone 20mg/100ml Ivpb -) 100 mls @ 9.859 mls/ hr IVPB TITR [facility]; 0.35 MCG/KG/MIN PRN Reason: Protocol Last Admin: 11/27/16 00:20 Dose: 9.859 mls/hr Insulin Aspart (Novolog Vial Sliding Scale -) 1 vial SQ ACHS [facility] PRN Reason: Protocol Last Admin: 11/27/16 12:09 Dose: 15 units Methylprednisolone Sodium Succinate (Solu-Medrol -) 40 mg IVPB Q6H-IV [facility] Last Admin: 11/27/16 09:45 Dose: 40 mg Multivitamins/Minerals/Vitamin C (Tab-A-Vit -) 1 tab PO DAILY [facility] Last Admin: 11/27/16 10:44 Dose: 1 tab Ondansetron HCl (Zofran Injection) 4 mg IVPB Q6H PRN PRN Reason: NAUSEA Ranitidine HCl (Zantac -) 75 mg PO DAILY [facility] Last Admin: 11/27/16 11:16 Dose: 75 mg Tiotropium [place] (Spiriva -) 1 puff IH DAILY [facility] Last Admin: 11/27/16 10:45 Dose: 1 puff Torsemide (Demadex -) 40 mg PO BIDLASIX [facility] Last Admin: 11/27/16 06:26 Dose: 40 mg Warfarin Sodium (Coumadin -) 4 mg PO DAILY@1800 [facility] Last Admin: 11/26/16 18:36 Dose: Not Given Vital Signs - 24 hr 11/26/16 11/26/16 11/26/16 14:36 17:00 21:00 Temperature 97.7 F 96.5 F L Pulse Rate 76 77 Respiratory 18 18 20 Rate Blood Pressure 116/67 109/67 O2 Sat by Pulse 96 Oximetry (%) 11/26/16 11/27/16 11/27/16 22:00 02:12 06:00 Temperature 97.0 F L 98.6 F 97.2 F L Pulse Rate 76 74 75 Respiratory 20 20 20 Rate Blood Pressure 115/70 113/69 113/70 O2 Sat by Pulse Oximetry (%) Intake & Output 11/25/16 11/26/16 11/27/16 11/28/16 07:59 07:59 07:59 07:59 Intake Total 60 120 690 Output Total 250 1050 800 Balance -190 -930 -110 Weight 205 lb 12.8 oz 208 lb 6.4 oz 212 lb 9.6 oz NAD, calm JVD up, neck supple RRR nl s1, s2 no m/r/g. cta bl, nl effort 1+ LE edema, no cyanosis or clubbing. aaox3 no jaundice diaphoresis CBC, BMP 11/26/16 06:07 11/27/16 06:02 ecg 11/24/16: [employer] echo 05/2016: sev lve, global hk, sev dec lvef, mild rve, nl rv fcn, estefania, mild- mod mr, mv ring, tv ring, mild tr, mild pr, mild phtn, ivc mild dil cxr: mild congestion (chronic finding) tele: [employer] a/p: 76 year old gentleman with PMH of IDDM, COPD (O2 dependant) HTN, HLD, Afib (on coumadin), CAD s/p CABG 2012, end stage CHF with ICD placement (on milrinone pump), PVD, BPH here with productive cough. cough: -no signs vol overload, pulm edema -cxr with chronic findings, bnp at baseline, wt at baseline -likely due to URI/copd, sxs improving with resp treatment, plans per pmd/pulm chronic end stage systolic heart failure s/p ICD, on home milrinone infusion: - dry wt approx 211 lbs, currently near this value (below) - cxr with chronic findings, bnp at baseline - cont milrinone at patient's home maintenance dose (on chronic infusion destination therapy)--0.35 mcg/kg/min. - cont home coreg - recent office icd check with stable function - 11/27: + weight gain with clinical signs/sx's of volume overload and worsened hyponatremia. Lasix 80 mg IV x 1 now, monitor uop response. Previously diuresed with 80 mg IV bid and intermittent metolazone. Monitor renal function. Daily weights, bmp, potassium repletion. afib - currently rate controlled on coreg - cont coumadin per INR PVD - con't AC, plavix statin. CAD s/p CABG - No anginal symptoms, no signs acs. Con't home ac, plavix, atorvastatin, coreg HTN: controlled on coreg HLD: con't statin. CKD - as above
[2016-11-27] MEDS ORDERED: FUROSEMIDE 40 MG/4 ML INJECTABLE VIAL IVPUSH ONE (12:54)
--- NOTE | 2016-11-27 13:32 | PN ---
Progress Note (short form) - Note Progress Note: Reports increasing LE edema and weight gain. SOB a bit better. Some dry cough. No CP. Intake & Output 11/24/16 11/25/16 11/26/16 11/27/16 23:59 23:59 23:59 23:59 Intake Total 60 680 130 Output Total 850 1250 Balance -790 -570 130 Weight 207 lb 205 lb 12.8 oz 208 lb 6.4 oz 212 lb 9.6 oz Last Vital Signs Temp Pulse Resp BP Pulse Ox 98.2 F 75 20 99/56 96 11/27/16 10:00 11/27/16 10:00 11/27/16 10:00 11/27/16 10:00 11/27/16 09:00 Active Medications Acetaminophen (Tylenol -) 650 mg PO Q4H PRN PRN Reason: FEVER OR PAIN Albuterol Sulfate (Ventolin 0.083% Nebulizer Soln -) 1 amp NEB Q4H PRN PRN Reason: SHORT OF BREATH/WHEEZING Allopurinol (Zyloprim -) 100 mg PO DAILY [facility] Last Admin: 11/27/16 10:44 Dose: 100 mg Ascorbic Acid (Vitamin C -) 1,000 mg PO DAILY [facility] Last Admin: 11/27/16 10:44 Dose: 1,000 mg Atorvastatin Calcium (Lipitor -) 40 mg PO HS [facility] Last Admin: 11/26/16 21:29 Dose: 40 mg Budesonide/Formoterol Fumarate (Symbicort 80/4.5mcg -) 2 puff IH BID [facility] Last Admin: 11/27/16 10:46 Dose: 2 puff Bupropion HCl (Wellbutrin -) 75 mg PO DAILY [facility] Last Admin: 11/27/16 10:44 Dose: 75 mg Carvedilol (Coreg -) 6.25 mg PO BID [facility] Last Admin: 11/27/16 10:44 Dose: 6.25 mg Cholecalciferol (Vitamin D3 -) 1,000 unit PO DAILY [facility] Last Admin: 11/27/16 10:46 Dose: 1,000 unit Clopidogrel Bisulfate (Plavix -) 75 mg PO DAILY [facility] Last Admin: 11/27/16 10:44 Dose: 75 mg Docusate Sodium (Colace -) 100 mg PO BID [facility] Last Admin: 11/27/16 10:45 Dose: 100 mg Ferrous Sulfate (Feosol -) 325 mg PO Q2D [facility] Last Admin: 11/27/16 10:44 Dose: 325 mg Guaifenesin (Mucinex -) 600 mg PO BID [facility] Last Admin: 11/27/16 10:44 Dose: 600 mg Guaifenesin (Robitussin Dm -) 10 ml PO Q6H PRN PRN Reason: COUGH Last Admin: 11/26/16 22:23 Dose: 10 ml Milrinone Lactate/Dextrose (Milrinone 20mg/100ml Ivpb -) 100 mls @ 9.859 mls/ hr IVPB TITR [facility]; 0.35 MCG/KG/MIN PRN Reason: Protocol Last Admin: 11/27/16 00:20 Dose: 9.859 mls/hr Insulin Aspart (Novolog Vial Sliding Scale -) 1 vial SQ ACHS [facility] PRN Reason: Protocol Last Admin: 11/27/16 12:09 Dose: 15 units Methylprednisolone Sodium Succinate (Solu-Medrol -) 40 mg IVPB Q6H-IV [facility] Last Admin: 11/27/16 09:45 Dose: 40 mg Multivitamins/Minerals/Vitamin C (Tab-A-Vit -) 1 tab PO DAILY [facility] Last Admin: 11/27/16 10:44 Dose: 1 tab Ondansetron HCl (Zofran Injection) 4 mg IVPB Q6H PRN PRN Reason: NAUSEA Ranitidine HCl (Zantac -) 75 mg PO DAILY [facility] Last Admin: 11/27/16 11:16 Dose: 75 mg Tiotropium [place] (Spiriva -) 1 puff IH DAILY [facility] Last Admin: 11/27/16 10:45 Dose: 1 puff Warfarin Sodium (Coumadin -) 4 mg PO DAILY@1800 [facility] Last Admin: 11/26/16 18:36 Dose: Not Given GENERAL: Awake, NAD HEAD: Normal with no signs of trauma. EYES: sclera anicteric, conjunctiva clear. LUNGS: Bibasilar rales R > L HEART: Regular rate and rhythm, S1, S2 without murmur, rub or gallop. ABDOMEN: Soft, nontender, nondistended, normoactive bowel sounds, no guarding, no rebound EXTREMITIES: 2+ pulses, warm, well-perfused, no edema. NEUROLOGICAL: Non-focal Laboratory Results - last 24 hr 11/26/16 11/27/16 11/27/16 16:39 05:54 06:02 INR 3.99 H Sodium Potassium Chloride Carbon Dioxide Anion Gap BUN Creatinine POC Glucometer 342 372 Random Glucose Calcium Magnesium 11/27/16 06:02 INR Sodium 131 L Potassium 4.4 Chloride 89 L Carbon Dioxide 31 Anion Gap 11 BUN 86 H Creatinine 2.3 H POC Glucometer Random Glucose 356 H* Calcium 8.5 Magnesium 2.7 H Problem List - Problems (1) CHF (congestive heart failure) Code(s): I50.9 - HEART FAILURE, UNSPECIFIED Qualifiers: Congestive heart failure type: combined Congestive heart failure chronicity: unspecified congestive heart failure chronicity Qualified Code(s ): I50.40 - Unspecified combined systolic (congestive) and diastolic (congestive ) heart failure (2) AICD (automatic cardioverter/defibrillator) present Code(s): Z95.810 - PRESENCE OF AUTOMATIC (IMPLANTABLE) CARDIAC DEFIBRILLATOR (3) Acute and chronic respiratory failure ([id number]) Code(s): J96.20 - ACUTE AND CHR RESP FAILURE, UNSP W HYPOXIA OR HYPERCAPNIA (4) Acute on chronic renal insufficiency Code(s): N28.9 - DISORDER OF KIDNEY AND URETER, UNSPECIFIED N18.9 - CHRONIC KIDNEY DISEASE, UNSPECIFIED (5) Atrial fibrillation Code(s): I48.91 - UNSPECIFIED ATRIAL FIBRILLATION Qualifiers: Atrial fibrillation type: chronic Qualified Code(s): I48.2 - Chronic atrial fibrillation (6) CAD (coronary artery disease) Code(s): I25.10 - ATHSCL HEART DISEASE OF [place] CORONARY ARTERY W/O ANG PCTRS (7) CKD (chronic kidney disease) Code(s): N18.9 - CHRONIC KIDNEY DISEASE, UNSPECIFIED Qualifiers: Chronic kidney disease stage: unspecified stage Qualified Code(s): N18.9 - Chronic kidney disease, unspecified (8) COPD (chronic obstructive pulmonary disease) Code(s): J44.9 - CHRONIC OBSTRUCTIVE PULMONARY DISEASE, UNSPECIFIED Qualifiers : COPD type: unspecified COPD Qualified Code(s): J44.9 - Chronic obstructive pulmonary disease, unspecified (9) Cardiomyopathy Code(s): I42.9 - CARDIOMYOPATHY, UNSPECIFIED (10) Diabetes mellitus, insulin dependent (IDDM), uncontrolled Code(s): E10.65 - TYPE 1 DIABETES MELLITUS WITH HYPERGLYCEMIA (11) Dyspnea on exertion Code(s): R06.09 - OTHER FORMS OF DYSPNEA IMP CHRONIC HYPOXEMIC ,HYPERCAPNEIC RESPIRATORY FAILURE COPD END STAGE O2 DEPENDENT BRONCHITIS CHF S/P ICD ON MILRINONE PUMP ASHD S/P NH,CABG CKD AFIB PVD BPH PLAN DIURESIS TOLERATED BD TX SHORT COURSE OF STEROIDS NASAL O2 I+OS MONITOR LYTES,RENAL FUNCTION DR HAWKINS
--- NOTE | 2016-11-27 14:49 | PN ---
Progress Note, Physician Chief Complaint: Insomnia; Not as SOB History of Present Illness: Patient with CHF on IV Milrinone, COPD, Renal Failure and Atrial Fibrillation feels less SOB probably due to IV diuretics, IV steroid and inhalers. Not sleeping after 3:30Am each maegan. Tolerating diet. Cardiology D/Devaughn IV Diuretics and F/U chemistry lab ordered. - Current Medication List Current Medications: Active Medications Acetaminophen (Tylenol -) 650 mg PO Q4H PRN PRN Reason: FEVER OR PAIN Albuterol Sulfate (Ventolin 0.083% Nebulizer Soln -) 1 amp NEB Q4H PRN PRN Reason: SHORT OF BREATH/WHEEZING Allopurinol (Zyloprim -) 100 mg PO DAILY [facility] Last Admin: 11/27/16 10:44 Dose: 100 mg Ascorbic Acid (Vitamin C -) 1,000 mg PO DAILY [facility] Last Admin: 11/27/16 10:44 Dose: 1,000 mg Atorvastatin Calcium (Lipitor -) 40 mg PO HS [facility] Last Admin: 11/26/16 21:29 Dose: 40 mg Budesonide/Formoterol Fumarate (Symbicort 80/4.5mcg -) 2 puff IH BID [facility] Last Admin: 11/27/16 10:46 Dose: 2 puff Bupropion HCl (Wellbutrin -) 75 mg PO DAILY [facility] Last Admin: 11/27/16 10:44 Dose: 75 mg Carvedilol (Coreg -) 6.25 mg PO BID [facility] Last Admin: 11/27/16 10:44 Dose: 6.25 mg Cholecalciferol (Vitamin D3 -) 1,000 unit PO DAILY [facility] Last Admin: 11/27/16 10:46 Dose: 1,000 unit Clopidogrel Bisulfate (Plavix -) 75 mg PO DAILY [facility] Last Admin: 11/27/16 10:44 Dose: 75 mg Docusate Sodium (Colace -) 100 mg PO BID [facility] Last Admin: 11/27/16 10:45 Dose: 100 mg Ferrous Sulfate (Feosol -) 325 mg PO Q2D [facility] Last Admin: 11/27/16 10:44 Dose: 325 mg Guaifenesin (Mucinex -) 600 mg PO BID [facility] Last Admin: 11/27/16 10:44 Dose: 600 mg Guaifenesin (Robitussin Dm -) 10 ml PO Q6H PRN PRN Reason: COUGH Last Admin: 11/26/16 22:23 Dose: 10 ml Milrinone Lactate/Dextrose (Milrinone 20mg/100ml Ivpb -) 100 mls @ 9.859 mls/ hr IVPB TITR [facility]; 0.35 MCG/KG/MIN PRN Reason: Protocol Last Admin: 11/27/16 00:20 Dose: 9.859 mls/hr Insulin Aspart (Novolog Vial Sliding Scale -) 1 vial SQ ACHS [facility] PRN Reason: Protocol Last Admin: 11/27/16 12:09 Dose: 15 units Methylprednisolone Sodium Succinate (Solu-Medrol -) 40 mg IVPB Q6H-IV [facility] Last Admin: 11/27/16 09:45 Dose: 40 mg Multivitamins/Minerals/Vitamin C (Tab-A-Vit -) 1 tab PO DAILY [facility] Last Admin: 11/27/16 10:44 Dose: 1 tab Ondansetron HCl (Zofran Injection) 4 mg IVPB Q6H PRN PRN Reason: NAUSEA Ranitidine HCl (Zantac -) 75 mg PO DAILY [facility] Last Admin: 11/27/16 11:16 Dose: 75 mg Tiotropium [place] (Spiriva -) 1 puff IH DAILY [facility] Last Admin: 11/27/16 10:45 Dose: 1 puff Warfarin Sodium (Coumadin -) 4 mg PO DAILY@1800 [facility] Last Admin: 11/26/16 18:36 Dose: Not Given - Objective Vital Signs: Vital Signs Temperature 98.2 F 11/27/16 10:00 Pulse Rate 75 11/27/16 10:00 Respiratory Rate 20 11/27/16 10:00 Blood Pressure 99/56 11/27/16 10:00 O2 Sat by Pulse Oximetry (%) 96 11/27/16 09:00 Constitutional: Yes: Calm Cardiovascular: Yes: Pulse Irregular Respiratory: Yes: Diminished, Rhonchi (few at bases) Gastrointestinal: Yes: Soft Edema: No Neurological: Yes: Alert, Oriented Labs: CBC, BMP 11/26/16 06:07 11/27/16 06:02 INR, PTT INR 3.99 (0.82-1.09) H 11/27/16 06:02 Problem List - Problems (1) CHF (congestive heart failure) Assessment/Plan: OFF IV Diuretics but on IV Milrinone. Code(s): I50.9 - HEART FAILURE, UNSPECIFIED Qualifiers: Congestive heart failure type: combined Congestive heart failure chronicity: unspecified congestive heart failure chronicity Qualified Code(s ): I50.40 - Unspecified combined systolic (congestive) and diastolic (congestive ) heart failure (2) AICD (automatic cardioverter/defibrillator) present Assessment/Plan: In Place due to Cardiomyopathy Code(s): Z95.810 - PRESENCE OF AUTOMATIC (IMPLANTABLE) CARDIAC DEFIBRILLATOR (3) Acute and chronic respiratory failure ([id number]) Assessment/Plan: On IV steroids and inhaler Rx. Followed by Pulmonary MD Code(s): J96.20 - ACUTE AND CHR RESP FAILURE, UNSP W HYPOXIA OR HYPERCAPNIA (4) Acute on chronic renal insufficiency Assessment/Plan: Still markedly elevated; will follow now that Lasix D/Devaughn. Code(s): N28.9 - DISORDER OF KIDNEY AND URETER, UNSPECIFIED N18.9 - CHRONIC KIDNEY DISEASE, UNSPECIFIED (5) Atrial fibrillation Assessment/Plan: INR High again today; Coumadin being held. Code(s): I48.91 - UNSPECIFIED ATRIAL FIBRILLATION Qualifiers: Atrial fibrillation type: chronic Qualified Code(s): I48.2 - Chronic atrial fibrillation
[2016-11-27] MEDS: WARFARIN NA 2 MG TABLET (UD) PO SCH (17:36)
[2016-11-27] MEDS: ATORVASTATIN CA 40 MG TABLET (FP) PO SCH (21:40)
[2016-11-27] MEDS: guaiFENesin/D-METHORPHAN HB 10 ML UNIT-DOSE CUPS PO PRN (21:41)
[2016-11-27] MEDS: ALBUTEROL SO4 0.083% IH SOL 2.5 MG/3 ML VIAL.NEB. NEB PRN (23:30)
[2016-11-28] MEDS: methylPREDNISolone NA SUCC 40 MG/1 ML VIAL IVPB SCH ×3 (02:40→22:17)
[2016-11-28] MEDS: MILRINONE 20MG/100ML IVPB - 100 ML IVPB SCH ×2 (06:20→22:20)
[2016-11-28] MEDS ORDERED: INSULIN (NOVOLOG) ASPART 100 UNITS/ML 10ML VIAL ONE (06:24)
[2016-11-28] MEDS: INSULIN SLIDING SCALE (NOVOLOG) 1 VIAL SQ SCH ×4 (06:27→22:00)
[2016-11-28 07:55] LABS: INR 3.73 (0.82-1.09); PROTHROMBIN TIME (PATIENT) 42.1 SEC (9.98-11.88)
[2016-11-28 08:06] LABS: CALCIUM 8.3 mg/dL (8.5-10.1)
[2016-11-28 08:11] LABS: CREATININE 2.2 mg/dL (0.7-1.3)
--- NOTE | 2016-11-28 08:48 | PN ---
Progress Note, Physician Chief Complaint: chf History of Present Illness: no sob; cough resolved; no cp legs not swollen ex cigs - Current Medication List Current Medications: Active Medications Acetaminophen (Tylenol -) 650 mg PO Q4H PRN PRN Reason: FEVER OR PAIN Albuterol Sulfate (Ventolin 0.083% Nebulizer Soln -) 1 amp NEB Q4H PRN PRN Reason: SHORT OF BREATH/WHEEZING Last Admin: 11/27/16 23:30 Dose: 1 amp Allopurinol (Zyloprim -) 100 mg PO DAILY [facility] Last Admin: 11/27/16 10:44 Dose: 100 mg Ascorbic Acid (Vitamin C -) 1,000 mg PO DAILY [facility] Last Admin: 11/27/16 10:44 Dose: 1,000 mg Atorvastatin Calcium (Lipitor -) 40 mg PO HS [facility] Last Admin: 11/27/16 21:40 Dose: 40 mg Budesonide/Formoterol Fumarate (Symbicort 80/4.5mcg -) 2 puff IH BID [facility] Last Admin: 11/27/16 21:41 Dose: 2 puff Bupropion HCl (Wellbutrin -) 75 mg PO DAILY [facility] Last Admin: 11/27/16 10:44 Dose: 75 mg Carvedilol (Coreg -) 6.25 mg PO BID [facility] Last Admin: 11/27/16 21:40 Dose: 6.25 mg Cholecalciferol (Vitamin D3 -) 1,000 unit PO DAILY [facility] Clopidogrel Bisulfate (Plavix -) 75 mg PO DAILY [facility] Last Admin: 11/27/16 10:44 Dose: 75 mg Docusate Sodium (Colace -) 100 mg PO BID [facility] Last Admin: 11/27/16 21:40 Dose: 100 mg Ferrous Sulfate (Feosol -) 325 mg PO Q2D [facility] Last Admin: 11/27/16 10:44 Dose: 325 mg Guaifenesin (Mucinex -) 600 mg PO BID [facility] Last Admin: 11/27/16 21:41 Dose: 600 mg Guaifenesin (Robitussin Dm -) 10 ml PO Q6H PRN PRN Reason: COUGH Last Admin: 11/27/16 21:41 Dose: 10 ml Milrinone Lactate/Dextrose (Milrinone 20mg/100ml Ivpb -) 100 mls @ 9.859 mls/ hr IVPB TITR [facility]; 0.35 MCG/KG/MIN PRN Reason: Protocol Last Admin: 11/28/16 06:20 Dose: Not Given Insulin Aspart (Novolog Vial Sliding Scale -) 1 vial SQ ACHS [facility] PRN Reason: Protocol Last Admin: 11/28/16 06:27 Dose: 10 units Methylprednisolone Sodium Succinate (Solu-Medrol -) 40 mg IVPB Q6H-IV [facility] Last Admin: 11/28/16 08:32 Dose: 40 mg Multivitamins/Minerals/Vitamin C (Tab-A-Vit -) 1 tab PO DAILY [facility] Last Admin: 11/27/16 10:44 Dose: 1 tab Ondansetron HCl (Zofran Injection) 4 mg IVPB Q6H PRN PRN Reason: NAUSEA Ranitidine HCl (Zantac -) 75 mg PO DAILY [facility] Last Admin: 11/27/16 11:16 Dose: 75 mg Tiotropium [place] (Spiriva -) 1 puff IH DAILY [facility] Last Admin: 11/27/16 10:45 Dose: 1 puff Warfarin Sodium (Coumadin -) 4 mg PO DAILY@1800 [facility] Last Admin: 11/27/16 17:36 Dose: Not Given - Objective Vital Signs: Vital Signs Temperature 97.2 F L 11/28/16 02:36 Pulse Rate 77 11/28/16 02:36 Respiratory Rate 20 11/28/16 02:36 Blood Pressure 96/65 11/28/16 02:36 O2 Sat by Pulse Oximetry (%) 95 11/27/16 21:00 Constitutional: Yes: No Distress, Calm Eyes: No: Sclera Icterus HENT: No: Nasal Congestion Cardiovascular: Yes: Regular Rate and Rhythm, S1, S2, Other (PMI non diplaced). No: Gallop, Murmur Respiratory: Yes: CTA Bilaterally. No: Accessory Muscle Use, Rales, Rhonchi, Wheezes Gastrointestinal: Yes: Normal Bowel Sounds, Soft. No: Tenderness Musculoskeletal: Yes: Other (No kyphosis) Extremities: No: Cold Edema: No Integumentary: No: Jaundice Neurological: Yes: Alert, Oriented (x3) Psychiatric: No: Agitated Labs: CBC, BMP 11/26/16 06:07 11/28/16 06:00 INR, PTT INR 3.73 (0.82-1.09) H 11/28/16 06:00 - ....Imaging EKG: Other (tele: v-paced (? AF underlying); 11b NSVT) Assessment/Plan echo 05/2016: sev lve, global hk, sev dec lvef, mild rve, nl rv fcn, estefania, mild- mod mr, mv ring, tv ring, mild tr, mild pr, mild phtn, ivc mild dil a/p: 76 year old gentleman with PMH of IDDM, COPD (O2 dependant) HTN, HLD, Afib (on coumadin), CAD s/p CABG 2012, end stage CHF with ICD placement (on milrinone pump), PVD, BPH here with productive cough. cough: -no signs vol overload, pulm edema -cxr with chronic findings, bnp at baseline, wt at baseline -likely due to URI/copd, sxs improving with resp treatment, plans per pmd/pulm chronic end stage systolic heart failure s/p ICD, on home milrinone infusion: - pt home dry weight is very well-defined, with stable range for years on milrinone, monitored closely by --dry wt approx 211 lbs - on torsemide 40 bid at home, responds well to prn metolazone for weight increase - wt stable here on admit, 205 - cxr with chronic findings, bnp at baseline - 11/28: was not in chf when came in, now becoming slightly volume overloaded likely due to IV steroids - received lasix 80 iv x 1 on 11/27 for incr wt, hyponatremia, worwsening renal fxn - today's labs with Na improved, creat slightly improved (bun likely steroid effect)--start lasix 80 iv bid while pt on steroids - low threshold to add prn metolazone if wt not responding (works well at home) - d/w'd dr maddox--rapid steroid taper to start today -daily wts; should go back home on prior torsemide 40 bid - cont milrinone at patient's home maintenance dose (on chronic infusion destination therapy)--0.35 mcg/kg/min. - cont home coreg - recent office icd check with stable function - 11/27: + weight gain with clinical signs/sx's of volume overload and worsened hyponatremia. Lasix 80 mg IV x 1 now, monitor uop response. Previously diuresed with 80 mg IV bid and intermittent metolazone. Monitor renal function. Daily weights, bmp, potassium repletion. VTach: -NSVT (11b) on tele -known prior finding in pt, has ICD and has not had issues with inappr shocks -K/mag good--replete prn (per usual targets) -cont carvedilol as doing (low bp tendencies/dizzy limit outpt dose i believe) afib - currently rate controlled on coreg - cont coumadin per INR PVD - con't AC, plavix statin. CAD s/p CABG - No anginal symptoms, no signs acs. Con't home ac, plavix, atorvastatin, coreg HTN: controlled on coreg HLD: con't statin. CKD - stable
[2016-11-28] MEDS: DOCUSATE SODIUM 100 MG CAPSULE (FP) PO SCH ×2 (09:46→22:10)
[2016-11-28] MEDS: ASCORBIC ACID 500 MG TABLET (FP) PO SCH (09:46)
[2016-11-28] MEDS: MULTIVITAMINS (DAILY MVI) TABLET (FP) PO SCH (09:46)
[2016-11-28] MEDS: CHOLECALCIFEROL (VITAMIN D3) 1,000 UNIT TABLET (FP) PO SCH (09:47)
[2016-11-28] MEDS: CARVEDILOL 6.25 MG TABLET (FP) PO SCH ×2 (09:47→22:10)
[2016-11-28] MEDS: CLOPIDOGREL BISULFATE 75 MG TABLET (FP) PO SCH (09:47)
[2016-11-28] MEDS: buPROPion HCL 75 MG TABLET PO SCH (09:47)
[2016-11-28] MEDS: ALLOPURINOL 100 MG TABLET (FP) PO SCH (09:47)
[2016-11-28] MEDS: guaiFENesin 600 MG TABLET.ER (FP) PO SCH ×2 (09:47→22:10)
[2016-11-28] MEDS: BUDESONIDE/FORMETEROL FUMARATE 80/4.5 mcg INHALER IH SCH ×2 (09:48→22:18)
[2016-11-28] MEDS: RANITIDINE HCL 150 MG TABLET (FP) PO SCH (09:48)
[2016-11-28] MEDS: TIOTROPIUM BROMIDE 18 MCG/INH (DEVICE W/ 5 CAPSULES) IH SCH (09:48)
--- NOTE | 2016-11-28 11:32 | PN ---
Progress Note, Physician History of Present Illness: pulmonary doing well ,oob-chair,-sob,-cough.+ wt gain - Current Medication List Current Medications: Active Medications Acetaminophen (Tylenol -) 650 mg PO Q4H PRN PRN Reason: FEVER OR PAIN Albuterol Sulfate (Ventolin 0.083% Nebulizer Soln -) 1 amp NEB Q4H PRN PRN Reason: SHORT OF BREATH/WHEEZING Last Admin: 11/27/16 23:30 Dose: 1 amp Allopurinol (Zyloprim -) 100 mg PO DAILY [facility] Last Admin: 11/28/16 09:47 Dose: 100 mg Ascorbic Acid (Vitamin C -) 1,000 mg PO DAILY [facility] Last Admin: 11/28/16 09:46 Dose: 1,000 mg Atorvastatin Calcium (Lipitor -) 40 mg PO HS [facility] Last Admin: 11/27/16 21:40 Dose: 40 mg Budesonide/Formoterol Fumarate (Symbicort 80/4.5mcg -) 2 puff IH BID [facility] Last Admin: 11/28/16 09:48 Dose: 2 puff Bupropion HCl (Wellbutrin -) 75 mg PO DAILY [facility] Last Admin: 11/28/16 09:47 Dose: 75 mg Carvedilol (Coreg -) 6.25 mg PO BID [facility] Last Admin: 11/28/16 09:47 Dose: 6.25 mg Cholecalciferol (Vitamin D3 -) 1,000 unit PO DAILY [facility] Last Admin: 11/28/16 09:47 Dose: 1,000 unit Clopidogrel Bisulfate (Plavix -) 75 mg PO DAILY [facility] Last Admin: 11/28/16 09:47 Dose: 75 mg Docusate Sodium (Colace -) 100 mg PO BID [facility] Last Admin: 11/28/16 09:46 Dose: 100 mg Ferrous Sulfate (Feosol -) 325 mg PO Q2D [facility] Last Admin: 11/27/16 10:44 Dose: 325 mg Furosemide (Lasix Injection -) 40 mg IVPUSH BID@0600,1400 [facility] Guaifenesin (Mucinex -) 600 mg PO BID [facility] Last Admin: 11/28/16 09:47 Dose: 600 mg Guaifenesin (Robitussin Dm -) 10 ml PO Q6H PRN PRN Reason: COUGH Last Admin: 11/27/16 21:41 Dose: 10 ml Milrinone Lactate/Dextrose (Milrinone 20mg/100ml Ivpb -) 100 mls @ 9.859 mls/ hr IVPB TITR [facility]; 0.35 MCG/KG/MIN PRN Reason: Protocol Last Admin: 11/28/16 06:20 Dose: Not Given Insulin Aspart (Novolog Vial Sliding Scale -) 1 vial SQ ACHS [facility] PRN Reason: Protocol Last Admin: 11/28/16 06:27 Dose: 10 units Methylprednisolone Sodium Succinate (Solu-Medrol -) 40 mg IVPB Q6H-IV [facility] Last Admin: 11/28/16 08:32 Dose: 40 mg Multivitamins/Minerals/Vitamin C (Tab-A-Vit -) 1 tab PO DAILY [facility] Last Admin: 11/28/16 09:46 Dose: 1 tab Ondansetron HCl (Zofran Injection) 4 mg IVPB Q6H PRN PRN Reason: NAUSEA Ranitidine HCl (Zantac -) 75 mg PO DAILY [facility] Last Admin: 11/28/16 09:48 Dose: 75 mg Tiotropium [place] (Spiriva -) 1 puff IH DAILY [facility] Last Admin: 11/28/16 09:48 Dose: 1 puff Warfarin Sodium (Coumadin -) 4 mg PO DAILY@1800 [facility] Last Admin: 11/27/16 17:36 Dose: Not Given - Objective Vital Signs: Vital Signs Temperature 97.6 F 11/28/16 09:00 Pulse Rate 75 11/28/16 09:00 Respiratory Rate 20 11/28/16 09:00 Blood Pressure 106/61 11/28/16 09:00 O2 Sat by Pulse Oximetry (%) 93 L 11/28/16 09:00 Constitutional: Yes: Well Nourished, Calm Eyes: Yes: WNL HENT: Yes: WNL Neck: Yes: WNL Cardiovascular: Yes: Pulse Irregular, S1, S2 Respiratory: Yes: Rales (few basilar crackles,-wheezes,-rhonchi) Gastrointestinal: Yes: Normal Bowel Sounds, Soft Extremities: Yes: WNL Edema: Yes Labs: CBC, BMP 11/26/16 06:07 11/28/16 06:00 INR, PTT INR 3.73 (0.82-1.09) H 11/28/16 06:00 Problem List - Problems (1) CHF (congestive heart failure) Code(s): I50.9 - HEART FAILURE, UNSPECIFIED Qualifiers: Congestive heart failure type: combined Congestive heart failure chronicity: unspecified congestive heart failure chronicity Qualified Code(s ): I50.40 - Unspecified combined systolic (congestive) and diastolic (congestive ) heart failure (2) AICD (automatic cardioverter/defibrillator) present Code(s): Z95.810 - PRESENCE OF AUTOMATIC (IMPLANTABLE) CARDIAC DEFIBRILLATOR (3) Acute and chronic respiratory failure ([id number]) Code(s): J96.20 - ACUTE AND CHR RESP FAILURE, UNSP W HYPOXIA OR HYPERCAPNIA (4) Acute on chronic renal insufficiency Code(s): N28.9 - DISORDER OF KIDNEY AND URETER, UNSPECIFIED N18.9 - CHRONIC KIDNEY DISEASE, UNSPECIFIED (5) Atrial fibrillation Code(s): I48.91 - UNSPECIFIED ATRIAL FIBRILLATION Qualifiers: Atrial fibrillation type: chronic Qualified Code(s): I48.2 - Chronic atrial fibrillation (6) CAD (coronary artery disease) Code(s): I25.10 - ATHSCL HEART DISEASE OF [place] CORONARY ARTERY W/O ANG PCTRS (7) CKD (chronic kidney disease) Code(s): N18.9 - CHRONIC KIDNEY DISEASE, UNSPECIFIED Qualifiers: Chronic kidney disease stage: unspecified stage Qualified Code(s): N18.9 - Chronic kidney disease, unspecified (8) COPD (chronic obstructive pulmonary disease) Code(s): J44.9 - CHRONIC OBSTRUCTIVE PULMONARY DISEASE, UNSPECIFIED Qualifiers : COPD type: unspecified COPD Qualified Code(s): J44.9 - Chronic obstructive pulmonary disease, unspecified (9) Cardiomyopathy Code(s): I42.9 - CARDIOMYOPATHY, UNSPECIFIED (10) Diabetes mellitus, insulin dependent (IDDM), uncontrolled Code(s): E10.65 - TYPE 1 DIABETES MELLITUS WITH HYPERGLYCEMIA (11) Dyspnea on exertion Code(s): R06.09 - OTHER FORMS OF DYSPNEA Assessment/Plan IMP CHRONIC HYPOXEMIC ,HYPERCAPNEIC RESPIRATORY FAILURE improving COPD END STAGE O2 DEPENDENT BRONCHITIS CHF S/P ICD ON MILRINONE PUMP ASHD S/P SC,CABG CKD AFIB PVD BPH PLAN INHALED BRONCHODILATORS TAPER STEROIDS NASAL O2 DIURETICS STRICT I+OS MONITOR LYTES,RENAL FUNCTION F/U CHEST X-RAY TODAY DR MONTGOMERY Problem List - Problems (1) CHF (congestive heart failure) Code(s): I50.9 - HEART FAILURE, UNSPECIFIED Qualifiers: Congestive heart failure type: combined Congestive heart failure chronicity: unspecified congestive heart failure chronicity Qualified Code(s ): I50.40 - Unspecified combined systolic (congestive) and diastolic (congestive ) heart failure (2) AICD (automatic cardioverter/defibrillator) present Code(s): Z95.810 - PRESENCE OF AUTOMATIC (IMPLANTABLE) CARDIAC DEFIBRILLATOR (3) Acute and chronic respiratory failure ([id number]) Code(s): J96.20 - ACUTE AND CHR RESP FAILURE, UNSP W HYPOXIA OR HYPERCAPNIA (4) Acute on chronic renal insufficiency Code(s): N28.9 - DISORDER OF KIDNEY AND URETER, UNSPECIFIED N18.9 - CHRONIC KIDNEY DISEASE, UNSPECIFIED (5) Atrial fibrillation Code(s): I48.91 - UNSPECIFIED ATRIAL FIBRILLATION Qualifiers: Atrial fibrillation type: chronic Qualified Code(s): I48.2 - Chronic atrial fibrillation (6) CAD (coronary artery disease) Code(s): I25.10 - ATHSCL HEART DISEASE OF [place] CORONARY ARTERY W/O ANG PCTRS (7) CKD (chronic kidney disease) Code(s): N18.9 - CHRONIC KIDNEY DISEASE, UNSPECIFIED Qualifiers: Chronic kidney disease stage: unspecified stage Qualified Code(s): N18.9 - Chronic kidney disease, unspecified (8) COPD (chronic obstructive pulmonary disease) Code(s): J44.9 - CHRONIC OBSTRUCTIVE PULMONARY DISEASE, UNSPECIFIED Qualifiers : COPD type: unspecified COPD Qualified Code(s): J44.9 - Chronic obstructive pulmonary disease, unspecified (9) Cardiomyopathy Code(s): I42.9 - CARDIOMYOPATHY, UNSPECIFIED (10) Diabetes mellitus, insulin dependent (IDDM), uncontrolled Code(s): E10.65 - TYPE 1 DIABETES MELLITUS WITH HYPERGLYCEMIA (11) Dyspnea on exertion Code(s): R06.09 - OTHER FORMS OF DYSPNEA
[2016-11-28] MEDS: FUROSEMIDE 40 MG/4 ML INJECTABLE VIAL IVPUSH SCH (13:50)
[2016-11-28] MEDS ORDERED: FUROSEMIDE 40 MG/4 ML INJECTABLE VIAL IVPUSH SCH (14:00)
--- NOTE | 2016-11-28 16:35 | PN ---
Physical Exam: SUBJECTIVE: Patient seen and examined sitting on edge of bed eating salad. present. Feels well. No complaints. No SOB. Points out mild swelling BLE. OBJECTIVE: Vital Signs Period Temp Pulse Resp BP Sys/Orantes Pulse Ox Last 24 Hr 96.5 F-97.6 F 75-77 18-20 96-119/61-73 93-95 GENERAL: The patient is awake, alert, and fully oriented, in no acute distress. HEAD: Normal with no signs of trauma. EYES: PERRL, extraocular movements intact, sclera anicteric, conjunctiva clear. No ptosis. LUNGS: Right basilar crackles. HEART: Regular rate and rhythm, S1, S2 without murmur, rub or gallop. ABDOMEN: Soft, nontender, nondistended, normoactive bowel sounds, no guarding, no rebound EXTREMITIES: 2+ pulses, warm, well-perfused, 1+ edema bilaterally NEUROLOGICAL: Cranial nerves II through XII grossly intact. Normal speech, gait not observed. CBCD WBC 4.4 K/mm3 (4.0-10.0) D 11/26/16 06:07 RBC 4.73 M/mm3 (4.00-5.60) 11/26/16 06:07 Hgb 12.6 GM/dL (11.7-16.9) 11/26/16 06:07 Hct 38.6 % (35.4-49) 11/26/16 06:07 MCV 81.6 fl (80-96) 11/26/16 06:07 MCHC 32.7 g/dl (32.0-35.9) 11/26/16 06:07 RDW 17.7 % (11.9-15.9) H 11/26/16 06:07 Plt Count 188 K/MM3 (134-434) 11/26/16 06:07 MPV 9.0 fl (7.5-11.1) 11/26/16 06:07 CMP Sodium 133 mmol/L (136-145) L 11/28/16 06:00 Potassium 4.1 mmol/L (3.5-5.1) 11/28/16 06:00 Chloride 91 mmol/L (98-107) L 11/28/16 06:00 Carbon Dioxide 30 mmol/L (21-32) 11/28/16 06:00 Anion Gap 12 (8-16) 11/28/16 06:00 BUN 91 mg/dL (7-18) H 11/28/16 06:00 Creatinine 2.2 mg/dL (0.7-1.3) H 11/28/16 06:00 Creat Clearance w eGFR 26.31 (>60) 11/26/16 06:07 Calcium 8.3 mg/dL (8.5-10.1) L 11/28/16 06:00 Total Bilirubin 0.7 mg/dL (0.2-1.0) 11/26/16 06:07 AST 20 U/L (15-37) 11/26/16 06:07 ALT 22 U/L (12-78) 11/26/16 06:07 Alkaline Phosphatase 145 U/L (45-117) H 11/26/16 06:07 Total Protein 8.1 g/dl (6.4-8.2) 11/26/16 06:07 Albumin 3.6 g/dl (3.4-5.0) 11/26/16 06:07 Active Medications Generic Name Dose Route Start Last Admin Trade Name Freq PRN Reason Stop Dose Admin Acetaminophen 650 mg 11/24/16 17:44 Tylenol - PO Q4H PRN FEVER OR PAIN Albuterol Sulfate 1 amp 11/25/16 15:06 11/27/16 23:30 Ventolin 0.083% Nebulizer Soln - NEB 1 amp Q4H PRN Administration SHORT OF BREATH/WHEEZING Allopurinol 100 mg 11/25/16 10:00 11/28/16 09:47 Zyloprim - PO 100 mg DAILY [facility] Administration Ascorbic Acid 1,000 mg 11/25/16 10:00 11/28/16 09:46 Vitamin C - PO 1,000 mg DAILY [facility] Administration Atorvastatin Calcium 40 mg 11/24/16 22:00 11/27/16 21:40 Lipitor - PO 40 mg HS [facility] Administration Budesonide/Formoterol Fumarate 2 puff 11/25/16 22:00 11/28/16 09:48 Symbicort 80/4.5mcg - IH 2 puff BID [facility] Administration Bupropion HCl 75 mg 11/25/16 10:00 11/28/16 09:47 Wellbutrin - PO 75 mg DAILY [facility] Administration Carvedilol 6.25 mg 11/24/16 22:00 11/28/16 09:47 Coreg - PO 6.25 mg BID [facility] Administration Cholecalciferol 1,000 unit 11/27/16 22:06 11/28/16 09:47 Vitamin D3 - PO 1,000 unit DAILY [facility] Administration Clopidogrel Bisulfate 75 mg 11/25/16 10:00 11/28/16 09:47 Plavix - PO 75 mg DAILY [facility] Administration Docusate Sodium 100 mg 11/24/16 22:00 11/28/16 09:46 Colace - PO 100 mg BID [facility] Administration Ferrous Sulfate 325 mg 11/25/16 10:00 11/27/16 10:44 Feosol - PO 325 mg Q2D [facility] Administration Furosemide 80 mg 11/28/16 14:00 11/28/16 13:50 Lasix Injection - IVPUSH 80 mg BID@0600,1400 [facility] Administration Guaifenesin 600 mg 11/24/16 22:00 11/28/16 09:47 Mucinex - PO 600 mg BID [facility] Administration Guaifenesin 10 ml 11/25/16 13:10 11/27/16 21:41 Robitussin Dm - PO 10 ml Q6H PRN Administration COUGH Milrinone Lactate/Dextrose 100 mls @ 9.859 mls/hr 11/25/16 00:24 11/28/16 06:20 Milrinone 20mg/100ml Ivpb - IVPB Not Given TITR [facility] Protocol 0.35 MCG/KG/MIN Insulin Aspart 1 vial 11/24/16 22:00 11/28/16 11:56 Novolog Vial Sliding Scale - SQ 10 units ACHS [facility] Administration Protocol Methylprednisolone Sodium Succinate 20 mg 11/28/16 22:00 Solu-Medrol - IVPB BID [facility] Multivitamins/Minerals/Vitamin C 1 tab 11/25/16 10:00 11/28/16 09:46 Tab-A-Vit - PO 1 tab DAILY [facility] Administration Ondansetron HCl 4 mg 11/24/16 17:44 Zofran Injection IVPB Q6H PRN NAUSEA Ranitidine HCl 75 mg 11/25/16 10:00 11/28/16 09:48 Zantac - PO 75 mg DAILY [facility] Administration Tiotropium [place] 1 puff 11/25/16 15:15 11/28/16 09:48 Spiriva - IH 1 puff DAILY [facility] Administration Warfarin Sodium 4 mg 11/26/16 18:00 11/27/16 17:36 Coumadin - PO Not Given DAILY@1800 [facility] ASSESSMENT/PLAN: 76-year-old man with a history of COPD, chronic hypoxic respiratory failure, end -stage chronic systolic heart failure on home Milrinone, atrial fibrillation, CAD, [place], HTN, hyperlipidemia, PAD, type 2 DM, stage 4 CKD, and BPH, admitted for cough. 1. Hypokalemia, chronic - Replete potassium PO 40mg x 3 doses 2. Bronchitis --no fever, no leukocytosis - tapering IV steroids - convert to PO tomorrow for discharge planning 3. COPD - Duonebs as needed 4. Chronic systolic heart failure, end-stage --signs of volume overload: mildly hyponatremic, b/l LE edema, weight up 3kg since admission --continue Lasix IV 80mg BID --metazolone x 1 dose today --continue carvedilol, milrinone drip 5. Chronic hypoxic respiratory failure - Continue oxygen to maintain saturation > 90% 6. Permanent atrial fibrillation --rate controlled, continue carvedilol - INR supratherapeutic 3.73, hold coumadin 7. CAD, history of [place] - Continue Coreg, Plavix, Lipitor 8. HTN - Continue Coreg 9. Hyperlipidemia - Continue Lipitor 10. PAD 11. Type 2 diabetes mellitus - Fingersticks with Novolog sliding scale 12. Stage 4 CKD - Cr 2.2, was 2.4 on admission, baseline 2.0 F/E/N Fluids: PO intake adequate Electrolytes: replete as indicated Nutrition: diabetic, low sodium DVT prophylaxis: on coumadin, oob, ambulation Dispo: ordered PT evaluation and pre/post testing for discharge planning. Full Code. Visit type - Emergency Visit Emergency Visit: Yes ED Registration Date: 11/25/16 Care time: The patient presented to the Emergency Department on the above date and was hospitalized for further evaluation of their emergent condition. - New Patient This patient is new to me today: No - Critical Care Critical Care patient: No
[2016-11-28] MEDS ORDERED: METOLAZONE 5 MG TABLET PO ONE (17:00)
[2016-11-28] MEDS: WARFARIN NA 2 MG TABLET (UD) PO SCH (17:16)
[2016-11-28] MEDS: ATORVASTATIN CA 40 MG TABLET (FP) PO SCH (22:10)
[2016-11-29] MEDS: guaiFENesin/D-METHORPHAN HB 10 ML UNIT-DOSE CUPS PO PRN (01:59)
[2016-11-29] MEDS: INSULIN SLIDING SCALE (NOVOLOG) 1 VIAL SQ SCH ×4 (06:17→22:04)
[2016-11-29] MEDS: FUROSEMIDE 40 MG/4 ML INJECTABLE VIAL IVPUSH SCH ×2 (06:20→13:23)
[2016-11-29] MEDS: MILRINONE 20MG/100ML IVPB - 100 ML IVPB SCH ×2 (06:20→17:32)
[2016-11-29] MEDS: ALBUTEROL SO4 0.083% IH SOL 2.5 MG/3 ML VIAL.NEB. NEB PRN ×3 (06:31→22:10)
[2016-11-29 07:59] LABS: INR 2.7 (0.82-1.09); PROTHROMBIN TIME (PATIENT) 30.3 SEC (9.98-11.88)
--- NOTE | 2016-11-29 09:29 | PN ---
Physical Exam: SUBJECTIVE: Patient seen and examined Pt reports feeling better, less SOB, intermittent productive cough with clear sputum, no other c/o. OBJECTIVE: Vital Signs Period Temp Pulse Resp BP Sys/Orantes Pulse Ox Last 24 Hr 97.5 F-97.8 F 75-76 20-20 116-126/69-78 90-96 GENERAL: The patient is awake, alert, and fully oriented, in no acute distress. HEAD: Normal with no signs of trauma. EYES: PERRL, extraocular movements intact, sclera anicteric, conjunctiva clear. No ptosis. ENT: Ears normal, nares patent, oropharynx clear without exudates, moist mucous membranes. NECK: Trachea midline, full range of motion, supple. LUNGS: Breath sounds equal, clear to auscultation bilaterally, no wheezes, crackles - Rt lower lobe, no accessory muscle use. HEART: Regular rate and rhythm, S1, S2 without murmur, rub or gallop ABDOMEN: Soft, nontender, nondistended, normoactive bowel sounds, no guarding, no rebound, no hepatosplenomegaly, no masses. EXTREMITIES: 2+ pulses, warm, well-perfused, 1+ edema NEUROLOGICAL: Cranial nerves II through XII grossly intact. Normal speech, gait not observed. PSYCH: Normal mood, normal affect. SKIN: Warm, dry, normal turgor, no rashes or lesions noted Laboratory Results - last 24 hr 11/26/16 11/27/16 11/27/16 21:34 12:06 17:10 INR POC Glucometer 457 491 417 11/28/16 11/28/16 11/28/16 11:51 15:42 22:12 INR POC Glucometer 454 [id number] 424 11/29/16 11/29/16 05:35 05:44 INR 2.70 H POC Glucometer 250 Active Medications Generic Name Dose Route Start Last Admin Trade Name Freq PRN Reason Stop Dose Admin Acetaminophen 650 mg 11/24/16 17:44 Tylenol - PO Q4H PRN FEVER OR PAIN Albuterol Sulfate 1 amp 11/25/16 15:06 11/29/16 06:31 Ventolin 0.083% Nebulizer Soln - NEB 1 amp Q4H PRN Administration SHORT OF BREATH/WHEEZING Allopurinol 100 mg 11/25/16 10:00 11/28/16 09:47 Zyloprim - PO 100 mg DAILY [facility] Administration Ascorbic Acid 1,000 mg 11/25/16 10:00 11/28/16 09:46 Vitamin C - PO 1,000 mg DAILY [facility] Administration Atorvastatin Calcium 40 mg 11/24/16 22:00 11/28/16 22:10 Lipitor - PO 40 mg HS [facility] Administration Budesonide/Formoterol Fumarate 2 puff 11/25/16 22:00 11/28/16 22:18 Symbicort 80/4.5mcg - IH 2 puff BID [facility] Administration Bupropion HCl 75 mg 11/25/16 10:00 11/28/16 09:47 Wellbutrin - PO 75 mg DAILY [facility] Administration Carvedilol 6.25 mg 11/24/16 22:00 11/28/16 22:10 Coreg - PO 6.25 mg BID [facility] Administration Cholecalciferol 1,000 unit 11/27/16 22:06 11/28/16 09:47 Vitamin D3 - PO 1,000 unit DAILY [facility] Administration Clopidogrel Bisulfate 75 mg 11/25/16 10:00 11/28/16 09:47 Plavix - PO 75 mg DAILY [facility] Administration Docusate Sodium 100 mg 11/24/16 22:00 11/28/16 22:10 Colace - PO 100 mg BID [facility] Administration Ferrous Sulfate 325 mg 11/25/16 10:00 11/27/16 10:44 Feosol - PO 325 mg Q2D [facility] Administration Furosemide 80 mg 11/28/16 14:00 11/29/16 06:20 Lasix Injection - IVPUSH 80 mg BID@0600,1400 [facility] Administration Guaifenesin 600 mg 11/24/16 22:00 11/28/16 22:10 Mucinex - PO 600 mg BID [facility] Administration Guaifenesin 10 ml 11/25/16 13:10 11/29/16 01:59 Robitussin Dm - PO 10 ml Q6H PRN Administration COUGH Milrinone Lactate/Dextrose 100 mls @ 9.859 mls/hr 11/25/16 00:24 11/29/16 06:20 Milrinone 20mg/100ml Ivpb - IVPB 9.859 mls/hr TITR [facility] Administration Protocol 0.35 MCG/KG/MIN Insulin Aspart 1 vial 11/24/16 22:00 11/29/16 06:17 Novolog Vial Sliding Scale - SQ 4 units ACHS [facility] Administration Protocol Methylprednisolone Sodium Succinate 20 mg 11/28/16 22:00 11/28/16 22:17 Solu-Medrol - IVPB 20 mg BID [facility] Administration Multivitamins/Minerals/Vitamin C 1 tab 11/25/16 10:00 11/28/16 09:46 Tab-A-Vit - PO 1 tab DAILY [facility] Administration Ondansetron HCl 4 mg 11/24/16 17:44 Zofran Injection IVPB Q6H PRN NAUSEA Ranitidine HCl 75 mg 11/25/16 10:00 11/28/16 09:48 Zantac - PO 75 mg DAILY [facility] Administration Tiotropium [place] 1 puff 11/25/16 15:15 11/28/16 09:48 Spiriva - IH 1 puff DAILY [facility] Administration Warfarin Sodium 3 mg 11/29/16 18:00 Coumadin - PO DAILY@1800 [facility] ASSESSMENT/PLAN: This is a 76-year-old man with a history of COPD( O2 dependent at home), chronic hypoxic respiratory failure, end-stage chronic systolic heart failure on home Milrinone, atrial fibrillation, CAD, [place], HTN, hyperlipidemia, PAD, type 2 DM, stage 4 CKD, and BPH, admitted for cough. 1. Hypokalemia, chronic - Replete potassium- K4.1 today 2. Bronchitis- improving -no fever, no leukocytosis -tapering off IV steroids - starting Prednisone in am 3. COPD - improving -tapering off IV steroids - starting Prednisone in am - Duonebs as needed - continue on O2 to keep O2 sat >90% - pulmonary following 4. Chronic systolic heart failure, end-stage- - will continue on IV lasix 80mg BID -continue carvedilol, milrinone drip -signs of volume overload: mildly hyponatremic, b/l LE edema, weight up 3kg since admission - will monitor daily weight and I&O's - cardiology following 5. Chronic hypoxic respiratory failure- improving - Continue oxygen to maintain saturation > 90% 6. Permanent atrial fibrillation- HR remains controlled -continue carvedilol - INR therapeutic, will restart on Coumadin at 3mg instead of 4mg - will f/u on INR in am 7. CAD, history of [place] - Continue Coreg, Plavix, Lipitor 8. HTN- BP controlled - Continue Coreg 9. Hyperlipidemia - Continue Lipitor 10. Type 2 diabetes mellitus- BS uncontrolled - likely due to steroid use - Fingersticks with Novolog sliding scale - consistent carb diet 11. Stage 4 CKD - Cr 2.2, was 2.4 on admission, baseline 2.0 F/E/N Fluids: PO intake adequate Electrolytes: replete as indicated Nutrition: diabetic, low sodium DVT prophylaxis: on Coumadin, oob, ambulation Dispo: PT evaluation pending ,and pre/post testing for discharge planning. O2 sat 88% on RA Full Code. Visit type - Emergency Visit Emergency Visit: No - New Patient This patient is new to me today: Yes Date on this admission: 11/29/16 - Critical Care Critical Care patient: No
[2016-11-29] MEDS: CLOPIDOGREL BISULFATE 75 MG TABLET (FP) PO SCH (09:38)
[2016-11-29] MEDS: FERROUS SO4 325 MG TABLET (FP) PO SCH (09:38)
[2016-11-29] MEDS: TIOTROPIUM BROMIDE 18 MCG/INH (DEVICE W/ 5 CAPSULES) IH SCH (09:38)
[2016-11-29] MEDS: DOCUSATE SODIUM 100 MG CAPSULE (FP) PO SCH ×2 (09:39→21:32)
[2016-11-29] MEDS: RANITIDINE HCL 150 MG TABLET (FP) PO SCH (09:39)
[2016-11-29] MEDS: ALLOPURINOL 100 MG TABLET (FP) PO SCH (09:39)
[2016-11-29] MEDS: CARVEDILOL 6.25 MG TABLET (FP) PO SCH ×2 (09:39→21:32)
[2016-11-29] MEDS: ASCORBIC ACID 500 MG TABLET (FP) PO SCH (09:39)
[2016-11-29] MEDS: MULTIVITAMINS (DAILY MVI) TABLET (FP) PO SCH (09:39)
[2016-11-29] MEDS: CHOLECALCIFEROL (VITAMIN D3) 1,000 UNIT TABLET (FP) PO SCH (09:39)
[2016-11-29] MEDS: guaiFENesin 600 MG TABLET.ER (FP) PO SCH ×2 (09:39→21:33)
[2016-11-29] MEDS: buPROPion HCL 75 MG TABLET PO SCH (09:39)
[2016-11-29] MEDS: methylPREDNISolone NA SUCC 40 MG/1 ML VIAL IVPB SCH ×2 (09:40→21:34)
[2016-11-29] MEDS: BUDESONIDE/FORMETEROL FUMARATE 80/4.5 mcg INHALER IH SCH ×2 (09:40→22:00)
[2016-11-29] MEDS: POTASSIUM CHLORIDE TABS 20 MEQ TABLET.ER (FP) PO SCH ×2 (10:50→21:32)
--- NOTE | 2016-11-29 10:59 | PN ---
Progress Note, Physician History of Present Illness: pulmonary alert,oob-chair,-resp distress - Current Medication List Current Medications: Active Medications Acetaminophen (Tylenol -) 650 mg PO Q4H PRN PRN Reason: FEVER OR PAIN Albuterol Sulfate (Ventolin 0.083% Nebulizer Soln -) 1 amp NEB Q4H PRN PRN Reason: SHORT OF BREATH/WHEEZING Last Admin: 11/29/16 06:31 Dose: 1 amp Allopurinol (Zyloprim -) 100 mg PO DAILY [facility] Last Admin: 11/29/16 09:39 Dose: 100 mg Ascorbic Acid (Vitamin C -) 1,000 mg PO DAILY [facility] Last Admin: 11/29/16 09:39 Dose: 1,000 mg Atorvastatin Calcium (Lipitor -) 40 mg PO HS [facility] Last Admin: 11/28/16 22:10 Dose: 40 mg Budesonide/Formoterol Fumarate (Symbicort 80/4.5mcg -) 2 puff IH BID [facility] Last Admin: 11/29/16 09:40 Dose: 2 puff Bupropion HCl (Wellbutrin -) 75 mg PO DAILY [facility] Last Admin: 11/29/16 09:39 Dose: 75 mg Carvedilol (Coreg -) 6.25 mg PO BID [facility] Last Admin: 11/29/16 09:39 Dose: 6.25 mg Cholecalciferol (Vitamin D3 -) 1,000 unit PO DAILY [facility] Last Admin: 11/29/16 09:39 Dose: 1,000 unit Clopidogrel Bisulfate (Plavix -) 75 mg PO DAILY [facility] Last Admin: 11/29/16 09:38 Dose: 75 mg Docusate Sodium (Colace -) 100 mg PO BID [facility] Last Admin: 11/29/16 09:39 Dose: 100 mg Ferrous Sulfate (Feosol -) 325 mg PO Q2D [facility] Last Admin: 11/29/16 09:38 Dose: 325 mg Furosemide (Lasix Injection -) 80 mg IVPUSH BID@0600,1400 [facility] Last Admin: 11/29/16 06:20 Dose: 80 mg Guaifenesin (Mucinex -) 600 mg PO BID [facility] Last Admin: 11/29/16 09:39 Dose: 600 mg Guaifenesin (Robitussin Dm -) 10 ml PO Q6H PRN PRN Reason: COUGH Last Admin: 11/29/16 01:59 Dose: 10 ml Milrinone Lactate/Dextrose (Milrinone 20mg/100ml Ivpb -) 100 mls @ 9.859 mls/ hr IVPB TITR [facility]; 0.35 MCG/KG/MIN PRN Reason: Protocol Last Admin: 11/29/16 06:20 Dose: 9.859 mls/hr Insulin Aspart (Novolog Vial Sliding Scale -) 1 vial SQ ACHS [facility] PRN Reason: Protocol Last Admin: 11/29/16 06:17 Dose: 4 units Methylprednisolone Sodium Succinate (Solu-Medrol -) 20 mg IVPB BID [facility] Last Admin: 11/29/16 09:40 Dose: 20 mg Metolazone (Zaroxolyn -) 5 mg PO ONCE ONE Stop: 11/29/16 13:31 Multivitamins/Minerals/Vitamin C (Tab-A-Vit -) 1 tab PO DAILY [facility] Last Admin: 11/29/16 09:39 Dose: 1 tab Ondansetron HCl (Zofran Injection) 4 mg IVPB Q6H PRN PRN Reason: NAUSEA Potassium Chloride (K-Dur -) 40 meq PO BID [facility] Last Admin: 11/29/16 10:50 Dose: 40 meq Ranitidine HCl (Zantac -) 75 mg PO DAILY [facility] Last Admin: 11/29/16 09:39 Dose: 75 mg Tiotropium [place] (Spiriva -) 1 puff IH DAILY [facility] Last Admin: 11/29/16 09:38 Dose: 1 puff Warfarin Sodium (Coumadin -) 3 mg PO DAILY@1800 [facility] - Objective Vital Signs: Vital Signs Temperature 97.8 F 11/28/16 22:00 Pulse Rate 75 11/29/16 06:00 Respiratory Rate 20 11/29/16 06:00 Blood Pressure 116/69 11/29/16 06:00 O2 Sat by Pulse Oximetry (%) 90 L 11/28/16 23:00 Constitutional: Yes: Well Nourished, Calm Eyes: Yes: WNL HENT: Yes: WNL Neck: Yes: Supple Cardiovascular: Yes: Pulse Irregular, S1, S2 Respiratory: Yes: Diminished, Wheezes (few crackles r base) Gastrointestinal: Yes: Normal Bowel Sounds, Soft Extremities: Yes: WNL Edema: Yes Labs: CBC, BMP 11/26/16 06:07 11/28/16 06:00 INR, PTT INR 2.70 (0.82-1.09) H 11/29/16 05:35 - ....Imaging Chest X-ray: Report Reviewed, Image Reviewed Problem List - Problems (1) CHF (congestive heart failure) Code(s): I50.9 - HEART FAILURE, UNSPECIFIED Qualifiers: Congestive heart failure type: combined Congestive heart failure chronicity: unspecified congestive heart failure chronicity Qualified Code(s ): I50.40 - Unspecified combined systolic (congestive) and diastolic (congestive ) heart failure (2) AICD (automatic cardioverter/defibrillator) present Code(s): Z95.810 - PRESENCE OF AUTOMATIC (IMPLANTABLE) CARDIAC DEFIBRILLATOR (3) Acute and chronic respiratory failure ([id number]) Code(s): J96.20 - ACUTE AND CHR RESP FAILURE, UNSP W HYPOXIA OR HYPERCAPNIA (4) Acute on chronic renal insufficiency Code(s): N28.9 - DISORDER OF KIDNEY AND URETER, UNSPECIFIED N18.9 - CHRONIC KIDNEY DISEASE, UNSPECIFIED (5) Atrial fibrillation Code(s): I48.91 - UNSPECIFIED ATRIAL FIBRILLATION Qualifiers: Atrial fibrillation type: chronic Qualified Code(s): I48.2 - Chronic atrial fibrillation (6) CAD (coronary artery disease) Code(s): I25.10 - ATHSCL HEART DISEASE OF [place] CORONARY ARTERY W/O ANG PCTRS (7) CKD (chronic kidney disease) Code(s): N18.9 - CHRONIC KIDNEY DISEASE, UNSPECIFIED Qualifiers: Chronic kidney disease stage: unspecified stage Qualified Code(s): N18.9 - Chronic kidney disease, unspecified (8) COPD (chronic obstructive pulmonary disease) Code(s): J44.9 - CHRONIC OBSTRUCTIVE PULMONARY DISEASE, UNSPECIFIED Qualifiers : COPD type: unspecified COPD Qualified Code(s): J44.9 - Chronic obstructive pulmonary disease, unspecified (9) Cardiomyopathy Code(s): I42.9 - CARDIOMYOPATHY, UNSPECIFIED (10) Diabetes mellitus, insulin dependent (IDDM), uncontrolled Code(s): E10.65 - TYPE 1 DIABETES MELLITUS WITH HYPERGLYCEMIA (11) Dyspnea on exertion Code(s): R06.09 - OTHER FORMS OF DYSPNEA Assessment/Plan IMP CHRONIC HYPOXEMIC ,HYPERCAPNEIC RESPIRATORY FAILURE improving COPD END STAGE O2 DEPENDENT BRONCHITIS CHF S/P ICD ON MILRINONE PUMP ASHD S/P OK,CABG CKD AFIB PVD BPH PLAN INHALED BRONCHODILATORS STEROID TAPER NASAL O2 DIURETICS STRICT I+OS MONITOR LYTES,RENAL FUNCTION DR MONTGOM[place] Problem List - Problems (1) CHF (congestive heart failure) Code(s): I50.9 - HEART FAILURE, UNSPECIFIED Qualifiers: Congestive heart failure type: combined Congestive heart failure chronicity: unspecified congestive heart failure chronicity Qualified Code(s ): I50.40 - Unspecified combined systolic (congestive) and diastolic (congestive ) heart failure (2) AICD (automatic cardioverter/defibrillator) present Code(s): Z95.810 - PRESENCE OF AUTOMATIC (IMPLANTABLE) CARDIAC DEFIBRILLATOR (3) Acute and chronic respiratory failure (pxnlh-hk-zcehvoz) Code(s): J96.20 - ACUTE AND CHR RESP FAILURE, UNSP W HYPOXIA OR HYPERCAPNIA (4) Acute on chronic renal insufficiency Code(s): N28.9 - DISORDER OF KIDNEY AND URETER, UNSPECIFIED N18.9 - CHRONIC KIDNEY DISEASE, UNSPECIFIED (5) Atrial fibrillation Code(s): I48.91 - UNSPECIFIED ATRIAL FIBRILLATION Qualifiers: Atrial fibrillation type: chronic Qualified Code(s): I48.2 - Chronic atrial fibrillation (6) CAD (coronary artery disease) Code(s): I25.10 - ATHSCL HEART DISEASE OF [place] CORONARY ARTERY W/O ANG PCTRS (7) CKD (chronic kidney disease) Code(s): N18.9 - CHRONIC KIDNEY DISEASE, UNSPECIFIED Qualifiers: Chronic kidney disease stage: unspecified stage Qualified Code(s): N18.9 - Chronic kidney disease, unspecified (8) COPD (chronic obstructive pulmonary disease) Code(s): J44.9 - CHRONIC OBSTRUCTIVE PULMONARY DISEASE, UNSPECIFIED Qualifiers : COPD type: unspecified COPD Qualified Code(s): J44.9 - Chronic obstructive pulmonary disease, unspecified (9) Cardiomyopathy Code(s): I42.9 - CARDIOMYOPATHY, UNSPECIFIED (10) Diabetes mellitus, insulin dependent (IDDM), uncontrolled Code(s): E10.65 - TYPE 1 DIABETES MELLITUS WITH HYPERGLYCEMIA (11) Dyspnea on exertion Code(s): R06.09 - OTHER FORMS OF DYSPNEA
[2016-11-29] MEDS ORDERED: INSULIN (NOVOLOG) ASPART 100 UNITS/ML 10ML VIAL SQ ONE (11:04)
--- NOTE | 2016-11-29 13:21 | PN ---
Progress Note (short form) - Note Progress Note: Chief Complaint: chf History of Present Illness: no sob; cough improving no cp leg swelling improved. minimal abdominal swelling. ex cigs Current Medications Acetaminophen (Tylenol -) 650 mg PO Q4H PRN PRN Reason: FEVER OR PAIN Albuterol Sulfate (Ventolin 0.083% Nebulizer Soln -) 1 amp NEB Q4H PRN PRN Reason: SHORT OF BREATH/WHEEZING Last Admin: 11/29/16 10:45 Dose: 1 amp Allopurinol (Zyloprim -) 100 mg PO DAILY [facility] Last Admin: 11/29/16 09:39 Dose: 100 mg Ascorbic Acid (Vitamin C -) 1,000 mg PO DAILY [facility] Last Admin: 11/29/16 09:39 Dose: 1,000 mg Atorvastatin Calcium (Lipitor -) 40 mg PO HS [facility] Last Admin: 11/28/16 22:10 Dose: 40 mg Budesonide/Formoterol Fumarate (Symbicort 80/4.5mcg -) 2 puff IH BID [facility] Last Admin: 11/29/16 09:40 Dose: 2 puff Bupropion HCl (Wellbutrin -) 75 mg PO DAILY [facility] Last Admin: 11/29/16 09:39 Dose: 75 mg Carvedilol (Coreg -) 6.25 mg PO BID [facility] Last Admin: 11/29/16 09:39 Dose: 6.25 mg Cholecalciferol (Vitamin D3 -) 1,000 unit PO DAILY [facility] Last Admin: 11/29/16 09:39 Dose: 1,000 unit Clopidogrel Bisulfate (Plavix -) 75 mg PO DAILY [facility] Last Admin: 11/29/16 09:38 Dose: 75 mg Docusate Sodium (Colace -) 100 mg PO BID [facility] Last Admin: 11/29/16 09:39 Dose: 100 mg Ferrous Sulfate (Feosol -) 325 mg PO Q2D [facility] Last Admin: 11/29/16 09:38 Dose: 325 mg Furosemide (Lasix Injection -) 80 mg IVPUSH BID@0600,1400 [facility] Last Admin: 11/29/16 06:20 Dose: 80 mg Guaifenesin (Mucinex -) 600 mg PO BID [facility] Last Admin: 11/29/16 09:39 Dose: 600 mg Guaifenesin (Robitussin Dm -) 10 ml PO Q6H PRN PRN Reason: COUGH Last Admin: 11/29/16 01:59 Dose: 10 ml Milrinone Lactate/Dextrose (Milrinone 20mg/100ml Ivpb -) 100 mls @ 9.859 mls/ hr IVPB TITR [facility]; 0.35 MCG/KG/MIN PRN Reason: Protocol Last Admin: 11/29/16 06:20 Dose: 9.859 mls/hr Insulin Aspart (Novolog Vial Sliding Scale -) 1 vial SQ ACHS [facility] PRN Reason: Protocol Last Admin: 11/29/16 11:10 Dose: 10 units Methylprednisolone Sodium Succinate (Solu-Medrol -) 20 mg IVPB BID [facility] Stop: 11/29/16 22:00 Last Admin: 11/29/16 09:40 Dose: 20 mg Metolazone (Zaroxolyn -) 5 mg PO ONCE ONE Stop: 11/29/16 13:31 Last Admin: 11/29/16 12:56 Dose: 5 mg Multivitamins/Minerals/Vitamin C (Tab-A-Vit -) 1 tab PO DAILY [facility] Last Admin: 11/29/16 09:39 Dose: 1 tab Ondansetron HCl (Zofran Injection) 4 mg IVPB Q6H PRN PRN Reason: NAUSEA Potassium Chloride (K-Dur -) 40 meq PO BID [facility] Last Admin: 11/29/16 10:50 Dose: 40 meq Prednisone (Deltasone -) 30 mg PO DAILY [facility] Ranitidine HCl (Zantac -) 75 mg PO DAILY [facility] Last Admin: 11/29/16 09:39 Dose: 75 mg Tiotropium [place] (Spiriva -) 1 puff IH DAILY [facility] Last Admin: 11/29/16 09:38 Dose: 1 puff Warfarin Sodium (Coumadin -) 3 mg PO DAILY@1800 [facility] Vital Signs - 24 hr 11/28/16 11/28/16 11/28/16 13:48 18:00 20:44 Temperature 97.5 F L 97.5 F L Pulse Rate 76 76 Respiratory 20 20 Rate Blood Pressure 119/73 126/78 O2 Sat by Pulse 96 Oximetry (%) 11/28/16 11/28/16 11/29/16 22:00 23:00 06:00 Temperature 97.8 F Pulse Rate 75 75 75 Respiratory 20 20 Rate Blood Pressure 124/75 116/69 O2 Sat by Pulse 90 L Oximetry (%) 11/29/16 11/29/16 11/29/16 09:00 10:00 10:45 Temperature 97.5 F L Pulse Rate 76 76 Respiratory 22 Rate Blood Pressure 108/62 O2 Sat by Pulse 90 L 95 Oximetry (%) Intake & Output 11/27/16 11/28/16 11/29/16 11/30/16 07:59 07:59 07:59 07:59 Intake Total 509 976 8844 Output Total 1300 2050 2900 450 Balance -610 -1290 -1520 -450 Weight 212 lb 9.6 oz 213 lb 8 oz 213 lb 2 oz Constitutional: Yes: No Distress, Calm Eyes: No: Sclera Icterus HENT: No: Nasal Congestion Cardiovascular: Yes: Regular Rate and Rhythm, S1, S2, Other (PMI non diplaced). No: Gallop, Murmur Respiratory: Yes: CTA Bilaterally. No: Accessory Muscle Use, Rales, Rhonchi, Wheezes Gastrointestinal: Yes: Normal Bowel Sounds, Soft. No: Tenderness Musculoskeletal: Yes: Other (No kyphosis) Extremities: No: Cold Edema: trace Integumentary: No: Jaundice Neurological: Yes: Alert, Oriented (x3) Psychiatric: No: Agitated Labs: no CBC, BMP today - ....Imaging EKG: Other (tele: v-paced (? AF underlying); NSVT) Assessment/Plan echo 05/2016: sev lve, global hk, sev dec lvef, mild rve, nl rv fcn, estefania, mild- mod mr, mv ring, tv ring, mild tr, mild pr, mild phtn, ivc mild dil a/p: 76 year old gentleman with PMH of IDDM, COPD (O2 dependant) HTN, HLD, Afib (on coumadin), CAD s/p CABG 2012, end stage CHF with ICD placement (on milrinone pump), PVD, BPH here with productive cough. cough: -no signs vol overload, pulm edema -cxr with chronic findings, bnp at baseline, wt at baseline -likely due to URI/copd, sxs improving with resp treatment, plans per pmd/pulm chronic end stage systolic heart failure s/p ICD, on home milrinone infusion: - pt home dry weight is very well-defined, with stable range for years on milrinone, monitored closely by --dry wt approx 211 lbs - on torsemide 40 bid at home, responds well to prn metolazone for weight increase - wt stable here on admit, 205 - cxr with chronic findings, bnp at baseline - received lasix 80 iv x 1 on 11/27 for incr wt, hyponatremia, worwsening renal fxn - today's labs with Na improved, creat slightly improved (bun likely steroid effect)--start lasix 80 iv bid while pt on steroids - low threshold to add prn metolazone if wt not responding (works well at home) - d/w'd dr maddox--rapid steroid taper to start today -daily wts; should go back home on prior torsemide 40 bid - cont milrinone at patient's home maintenance dose (on chronic infusion destination therapy)--0.35 mcg/kg/min. - cont home coreg - recent office icd check with stable function - 11/27: + weight gain with clinical signs/sx's of volume overload and worsened hyponatremia. Lasix 80 mg IV x 1 now, monitor uop response. Previously diuresed with 80 mg IV bid and intermittent metolazone. - 11/28: was not in chf when came in, now becoming slightly volume overloaded likely due to IV steroids - 11/29: minimal change in weight, but symptomatically improving. con't lasix 80 mg IV BID. will give one trial dose of metolazone today. Monitor renal function/K on diuretics and standing potassium (bmp ordered for tomorrow) Daily weights, bmp, electrolyte repletion prn. VTach: -NSVT (11b) on tele -known prior finding in pt, has ICD and has not had issues with inappr shocks -K/mag good--replete prn (per usual targets) -cont carvedilol as doing (low bp tendencies/dizzy limit outpt dose i believe) afib - currently rate controlled on coreg - cont coumadin per INR PVD - con't AC, plavix statin. CAD s/p CABG - No anginal symptoms, no signs acs. Con't home ac, plavix, atorvastatin, coreg HTN: controlled on coreg HLD: con't statin. CKD - stable
[2016-11-29] MEDS ORDERED: METOLAZONE 5 MG TABLET PO ONE (13:30)
[2016-11-29] MEDS ORDERED: WARFARIN NA 3 MG TABLET PO SCH (18:00)
[2016-11-29] MEDS: ATORVASTATIN CA 40 MG TABLET (FP) PO SCH (21:32)
[2016-11-30] MEDS: MILRINONE 20MG/100ML IVPB - 100 ML IVPB SCH ×2 (00:30→09:15)
[2016-11-30] MEDS: FUROSEMIDE 40 MG/4 ML INJECTABLE VIAL IVPUSH SCH (06:34)
[2016-11-30] MEDS: INSULIN SLIDING SCALE (NOVOLOG) 1 VIAL SQ SCH ×2 (06:35→11:50)
[2016-11-30 08:01] LABS: BASOPHIL 0.1 % (0-2.0); MEAN CELL VOLUME 81.1 fl (80-96); NEUTROPHILS 84.7 % (42.8-82.8); PLATELET COUNT 185 K/MM3 (134-434); RDW 18.2 % (11.9-15.9); WHITE BLOOD COUNT 11.9 K/mm3 (4.0-10.0)
[2016-11-30 08:33] LABS: CALCIUM 8.5 mg/dL (8.5-10.1); INR 1.99 (0.82-1.09); PROTHROMBIN TIME (PATIENT) 22.2 SEC (9.98-11.88)
[2016-11-30 08:39] LABS: CREATININE 2.1 mg/dL (0.7-1.3)
[2016-11-30] MEDS: guaiFENesin 600 MG TABLET.ER (FP) PO SCH (09:16)
[2016-11-30] MEDS: CARVEDILOL 6.25 MG TABLET (FP) PO SCH (09:16)
[2016-11-30] MEDS: RANITIDINE HCL 150 MG TABLET (FP) PO SCH (09:16)
[2016-11-30] MEDS: MULTIVITAMINS (DAILY MVI) TABLET (FP) PO SCH (09:16)
[2016-11-30] MEDS: CLOPIDOGREL BISULFATE 75 MG TABLET (FP) PO SCH (09:16)
[2016-11-30] MEDS: CHOLECALCIFEROL (VITAMIN D3) 1,000 UNIT TABLET (FP) PO SCH (09:16)
[2016-11-30] MEDS: POTASSIUM CHLORIDE TABS 20 MEQ TABLET.ER (FP) PO SCH (09:17)
[2016-11-30] MEDS: buPROPion HCL 75 MG TABLET PO SCH (09:17)
[2016-11-30] MEDS: ASCORBIC ACID 500 MG TABLET (FP) PO SCH (09:17)
[2016-11-30] MEDS: ALLOPURINOL 100 MG TABLET (FP) PO SCH (09:17)
[2016-11-30] MEDS: BUDESONIDE/FORMETEROL FUMARATE 80/4.5 mcg INHALER IH SCH (09:20)
[2016-11-30] MEDS: TIOTROPIUM BROMIDE 18 MCG/INH (DEVICE W/ 5 CAPSULES) IH SCH (09:20)
[2016-11-30] MEDS: DOCUSATE SODIUM 100 MG CAPSULE (FP) PO SCH (09:21)
[2016-11-30] MEDS ORDERED: predniSONE 10 MG TABLET (UD) PO SCH (10:00)
--- NOTE | 2016-11-30 10:50 | PN ---
Progress Note (short form) - Note Progress Note: s: feeling better today, says he is at his baseline and wants to go home now. no cp palps dizzy; le edema better; feels well walking in room/hallway. o: Vital Signs Period Temp Pulse Resp BP Sys/Orantes Pulse Ox Last 24 Hr 97.2 F-97.5 F 75-77 20-20 113-129/70-81 96 NAD, calm JVD flat, neck supple RRR nl s1, s2 no m/r/g. cta bl, nl effort trace le edema bl, no c/c aaox3 no jaundice diaphoresis Current Medications Generic Name Dose Route Start Last Admin Trade Name Freq PRN Reason Stop Dose Admin Acetaminophen 650 mg 11/24/16 17:44 11/30/16 00:31 Tylenol - PO 650 mg Q4H PRN Administration FEVER OR PAIN Albuterol Sulfate 1 amp 11/25/16 15:06 11/29/16 22:10 Ventolin 0.083% Nebulizer Soln - NEB 1 amp Q4H PRN Administration SHORT OF BREATH/WHEEZING Allopurinol 100 mg 11/25/16 10:00 11/30/16 09:17 Zyloprim - PO 100 mg DAILY [facility] Administration Ascorbic Acid 1,000 mg 11/25/16 10:00 11/30/16 09:17 Vitamin C - PO 1,000 mg DAILY [facility] Administration Atorvastatin Calcium 40 mg 11/24/16 22:00 11/29/16 21:32 Lipitor - PO 40 mg HS [facility] Administration Budesonide/Formoterol Fumarate 2 puff 11/25/16 22:00 11/30/16 09:20 Symbicort 80/4.5mcg - IH 2 puff BID [facility] Administration Bupropion HCl 75 mg 11/25/16 10:00 11/30/16 09:17 Wellbutrin - PO 75 mg DAILY [facility] Administration Carvedilol 6.25 mg 11/24/16 22:00 11/30/16 09:16 Coreg - PO 6.25 mg BID [facility] Administration Cholecalciferol 1,000 unit 11/27/16 22:06 11/30/16 09:16 Vitamin D3 - PO 1,000 unit DAILY [facility] Administration Clopidogrel Bisulfate 75 mg 11/25/16 10:00 11/30/16 09:16 Plavix - PO 75 mg DAILY [facility] Administration Docusate Sodium 100 mg 11/24/16 22:00 11/30/16 09:21 Colace - PO 100 mg BID [facility] Administration Ferrous Sulfate 325 mg 11/25/16 10:00 11/29/16 09:38 Feosol - PO 325 mg Q2D [facility] Administration Guaifenesin 600 mg 11/24/16 22:00 11/30/16 09:16 Mucinex - PO 600 mg BID [facility] Administration Guaifenesin 10 ml 11/25/16 13:10 11/29/16 01:59 Robitussin Dm - PO 10 ml Q6H PRN Administration COUGH Milrinone Lactate/Dextrose 100 mls @ 9.859 mls/hr 11/25/16 00:24 11/30/16 09:15 Milrinone 20mg/100ml Ivpb - IVPB 10 mls/hr TITR [facility] Administration Protocol 0.35 MCG/KG/MIN Insulin Aspart 1 vial 11/24/16 22:00 11/30/16 06:35 Novolog Vial Sliding Scale - SQ 6 units ACHS [facility] Administration Protocol Multivitamins/Minerals/Vitamin C 1 tab 11/25/16 10:00 11/30/16 09:16 Tab-A-Vit - PO 1 tab DAILY [facility] Administration Ondansetron HCl 4 mg 11/24/16 17:44 Zofran Injection IVPB Q6H PRN NAUSEA Potassium Chloride 40 meq 11/29/16 10:00 11/30/16 09:17 K-Dur - PO 40 meq BID [facility] Administration Prednisone 30 mg 11/30/16 10:00 11/30/16 09:16 Deltasone - PO 30 mg DAILY [facility] Administration Ranitidine HCl 75 mg 11/25/16 10:00 11/30/16 09:16 Zantac - PO 75 mg DAILY [facility] Administration Tiotropium [place] 1 puff 11/25/16 15:15 11/30/16 09:20 Spiriva - IH 1 puff DAILY [facility] Administration Torsemide 40 mg 11/30/16 14:00 Demadex - PO BIDLASIX [facility] Warfarin Sodium 3 mg 11/29/16 18:00 11/29/16 17:24 Coumadin - PO 3 mg DAILY@1800 [facility] Administration CBC, BMP 11/30/16 05:35 11/30/16 05:35 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 cough: -no signs pulm edema -cxr with chronic findings -likely due to URI/copd, sxs improving with resp treatment, now on po steroids chronic end stage systolic heart failure s/p ICD, on home milrinone infusion: - pt home dry weight is very well-defined, with stable range for years on milrinone, monitored closely by --dry wt approx 211 lbs - on torsemide 40 bid at home, responds well to prn metolazone for weight increase - wt stable here on admit, 205 - cxr with chronic findings, bnp at baseline - required iv steroids here and this led to some vol overload so got a few doses of iv lasix with metolazone and now vol status improved, wt at baseline, pt feeling well, asking to go home - ok to change back to home torsemide 40 bid - cont milrinone at patient's home maintenance dose (on chronic infusion destination therapy)--0.35 mcg/kg/min. - cont home coreg - recent office icd check with stable function VTach: -NSVT (11b) on tele -known prior finding in pt, has ICD and has not had issues with inappr shocks -K/mag good--replete prn (per usual targets) -cont carvedilol as doing (low bp tendencies/dizzy limit outpt dose i believe) afib - currently rate controlled on coreg - cont coumadin per INR PVD - con't AC, plavix statin. CAD s/p CABG - No anginal symptoms, no signs acs. Con't home ac, plavix, atorvastatin, coreg HTN: controlled on coreg HLD: con't statin. CKD - stable cardiac shrestha stable for dc
--- NOTE | 2016-11-30 10:50 | PN ---
Progress Note, Physician History of Present Illness: PULMONARY ALERT,OOB-CHAIR,COMFORTABLE IN NAD,-SOB,-COUGH - Current Medication List Current Medications: Active Medications Acetaminophen (Tylenol -) 650 mg PO Q4H PRN PRN Reason: FEVER OR PAIN Last Admin: 11/30/16 00:31 Dose: 650 mg Albuterol Sulfate (Ventolin 0.083% Nebulizer Soln -) 1 amp NEB Q4H PRN PRN Reason: SHORT OF BREATH/WHEEZING Last Admin: 11/29/16 22:10 Dose: 1 amp Allopurinol (Zyloprim -) 100 mg PO DAILY [facility] Last Admin: 11/30/16 09:17 Dose: 100 mg Ascorbic Acid (Vitamin C -) 1,000 mg PO DAILY [facility] Last Admin: 11/30/16 09:17 Dose: 1,000 mg Atorvastatin Calcium (Lipitor -) 40 mg PO HS [facility] Last Admin: 11/29/16 21:32 Dose: 40 mg Budesonide/Formoterol Fumarate (Symbicort 80/4.5mcg -) 2 puff IH BID [facility] Last Admin: 11/30/16 09:20 Dose: 2 puff Bupropion HCl (Wellbutrin -) 75 mg PO DAILY [facility] Last Admin: 11/30/16 09:17 Dose: 75 mg Carvedilol (Coreg -) 6.25 mg PO BID [facility] Last Admin: 11/30/16 09:16 Dose: 6.25 mg Cholecalciferol (Vitamin D3 -) 1,000 unit PO DAILY [facility] Last Admin: 11/30/16 09:16 Dose: 1,000 unit Clopidogrel Bisulfate (Plavix -) 75 mg PO DAILY [facility] Last Admin: 11/30/16 09:16 Dose: 75 mg Docusate Sodium (Colace -) 100 mg PO BID [facility] Last Admin: 11/30/16 09:21 Dose: 100 mg Ferrous Sulfate (Feosol -) 325 mg PO Q2D [facility] Last Admin: 11/29/16 09:38 Dose: 325 mg Guaifenesin (Mucinex -) 600 mg PO BID [facility] Last Admin: 11/30/16 09:16 Dose: 600 mg Guaifenesin (Robitussin Dm -) 10 ml PO Q6H PRN PRN Reason: COUGH Last Admin: 11/29/16 01:59 Dose: 10 ml Milrinone Lactate/Dextrose (Milrinone 20mg/100ml Ivpb -) 100 mls @ 9.859 mls/ hr IVPB TITR QUINTON; 0.35 MCG/KG/MIN PRN Reason: Protocol Last Admin: 11/30/16 09:15 Dose: 10 mls/hr Insulin Aspart (Novolog Vial Sliding Scale -) 1 vial SQ ACHS [place] PRN Reason: Protocol Last Admin: 11/30/16 06:35 Dose: 6 units Multivitamins/Minerals/Vitamin C (Tab-A-Vit -) 1 tab PO DAILY [facility] Last Admin: 11/30/16 09:16 Dose: 1 tab Ondansetron HCl (Zofran Injection) 4 mg IVPB Q6H PRN PRN Reason: NAUSEA Potassium Chloride (K-Dur -) 40 meq PO BID [facility] Last Admin: 11/30/16 09:17 Dose: 40 meq Prednisone (Deltasone -) 30 mg PO DAILY [facility] Last Admin: 11/30/16 09:16 Dose: 30 mg Ranitidine HCl (Zantac -) 75 mg PO DAILY [facility] Last Admin: 11/30/16 09:16 Dose: 75 mg Tiotropium [place] (Spiriva -) 1 puff IH DAILY [facility] Last Admin: 11/30/16 09:20 Dose: 1 puff Torsemide (Demadex -) 40 mg PO BIDLASIX [facility] Warfarin Sodium (Coumadin -) 3 mg PO DAILY@1800 [facility] Last Admin: 11/29/16 17:24 Dose: 3 mg - Objective Vital Signs: Vital Signs Temperature 97.4 F L 11/30/16 06:00 Pulse Rate 75 11/30/16 06:00 Respiratory Rate 20 11/30/16 06:00 Blood Pressure 113/74 11/30/16 06:00 O2 Sat by Pulse Oximetry (%) 96 11/29/16 21:00 Constitutional: Yes: Well Nourished, Calm Eyes: Yes: WNL HENT: Yes: WNL Neck: Yes: WNL Cardiovascular: Yes: Pulse Irregular, S1, S2 Respiratory: Yes: Rales (FEW BIBASILAR CRACKLES) Gastrointestinal: Yes: Normal Bowel Sounds, Soft Extremities: Yes: WNL Edema: Yes Labs: CBC, BMP 11/30/16 05:35 11/30/16 05:35 INR, PTT INR 1.99 (0.82-1.09) H 11/30/16 05:35 Problem List - Problems (1) CHF (congestive heart failure) Code(s): I50.9 - HEART FAILURE, UNSPECIFIED Qualifiers: Qualified Code(s): I50.40 - Unspecified combined systolic (congestive) and diastolic (congestive) heart failure (2) AICD (automatic cardioverter/defibrillator) present Code(s): Z95.810 - PRESENCE OF AUTOMATIC (IMPLANTABLE) CARDIAC DEFIBRILLATOR (3) Acute and chronic respiratory failure ([id number]) Code(s): J96.20 - ACUTE AND CHR RESP FAILURE, UNSP W HYPOXIA OR HYPERCAPNIA (4) Acute on chronic renal insufficiency Code(s): N28.9 - DISORDER OF KIDNEY AND URETER, UNSPECIFIED N18.9 - CHRONIC KIDNEY DISEASE, UNSPECIFIED (5) Atrial fibrillation Code(s): I48.91 - UNSPECIFIED ATRIAL FIBRILLATION Qualifiers: Qualified Code(s): I48.2 - Chronic atrial fibrillation (6) CAD (coronary artery disease) Code(s): I25.10 - ATHSCL HEART DISEASE OF [place] CORONARY ARTERY W/O ANG PCTRS (7) CKD (chronic kidney disease) Code(s): N18.9 - CHRONIC KIDNEY DISEASE, UNSPECIFIED Qualifiers: Qualified Code(s): N18.9 - Chronic kidney disease, unspecified (8) COPD (chronic obstructive pulmonary disease) Code(s): J44.9 - CHRONIC OBSTRUCTIVE PULMONARY DISEASE, UNSPECIFIED Qualifiers : Qualified Code(s): J44.9 - Chronic obstructive pulmonary disease, unspecified (9) Cardiomyopathy Code(s): I42.9 - CARDIOMYOPATHY, UNSPECIFIED (10) Diabetes mellitus, insulin dependent (IDDM), uncontrolled Code(s): E10.65 - TYPE 1 DIABETES MELLITUS WITH HYPERGLYCEMIA (11) Dyspnea on exertion Code(s): R06.09 - OTHER FORMS OF DYSPNEA Assessment/Plan IMP CHRONIC HYPOXEMIC ,HYPERCAPNEIC RESPIRATORY FAILURE improving COPD END STAGE O2 DEPENDENT BRONCHITIS CHF S/P ICD ON MILRINONE PUMP ASHD S/P TX,CABG CKD AFIB PVD BPH PLAN INHALED BRONCHODILATORS CONTINUE STEROID TAPER NASAL O2 DIURETICS STRICT I+OS MONITOR LYTES,RENAL FUNCTION MONITOR BLOOD SUGARS CHEST X-RAY TODAY DR MONTGOMERY Problem List - Problems (1) CHF (congestive heart failure) Code(s): I50.9 - HEART FAILURE, UNSPECIFIED Qualifiers: Congestive heart failure type: combined Congestive heart failure chronicity: unspecified congestive heart failure chronicity Qualified Code(s ): I50.40 - Unspecified combined systolic (congestive) and diastolic (congestive ) heart failure (2) AICD (automatic cardioverter/defibrillator) present Code(s): Z95.810 - PRESENCE OF AUTOMATIC (IMPLANTABLE) CARDIAC DEFIBRILLATOR (3) Acute and chronic respiratory failure ([id number]) Code(s): J96.20 - ACUTE AND CHR RESP FAILURE, UNSP W HYPOXIA OR HYPERCAPNIA (4) Acute on chronic renal insufficiency Code(s): N28.9 - DISORDER OF KIDNEY AND URETER, UNSPECIFIED N18.9 - CHRONIC KIDNEY DISEASE, UNSPECIFIED (5) Atrial fibrillation Code(s): I48.91 - UNSPECIFIED ATRIAL FIBRILLATION Qualifiers: Atrial fibrillation type: chronic Qualified Code(s): I48.2 - Chronic atrial fibrillation (6) CAD (coronary artery disease) Code(s): I25.10 - ATHSCL HEART DISEASE OF [place] CORONARY ARTERY W/O ANG PCTRS (7) CKD (chronic kidney disease) Code(s): N18.9 - CHRONIC KIDNEY DISEASE, UNSPECIFIED Qualifiers: Chronic kidney disease stage: unspecified stage Qualified Code(s): N18.9 - Chronic kidney disease, unspecified (8) COPD (chronic obstructive pulmonary disease) Code(s): J44.9 - CHRONIC OBSTRUCTIVE PULMONARY DISEASE, UNSPECIFIED Qualifiers : COPD type: unspecified COPD Qualified Code(s): J44.9 - Chronic obstructive pulmonary disease, unspecified (9) Cardiomyopathy Code(s): I42.9 - CARDIOMYOPATHY, UNSPECIFIED (10) Diabetes mellitus, insulin dependent (IDDM), uncontrolled Code(s): E10.65 - TYPE 1 DIABETES MELLITUS WITH HYPERGLYCEMIA (11) Dyspnea on exertion Code(s): R06.09 - OTHER FORMS OF DYSPNEA
[2016-11-30] MEDS ORDERED: predniSONE 20 MG TABLET (UD) PO SCH (10:51)
[2016-11-30 11:25] VITALS: BP 108/62; TEMP 98
[2016-11-30 12:09] VITALS: PULSE 79
[2016-11-30] MEDS ORDERED: TORSEMIDE 20 MG TABLET (FP) PO SCH (14:00)
--- NOTE | 2016-12-27 14:18 | DS ---
Physical Exam: SUBJECTIVE: Patient seen and examined OBJECTIVE: PHYSICAL EXAM GENERAL: The patient is awake, alert, and fully oriented, in no acute distress. HEAD: Normal with no signs of trauma. EYES: PERRL, extraocular movements intact, sclera anicteric, conjunctiva clear. ENT: Ears normal, nares patent, oropharynx clear without exudates, moist mucous membranes. NECK: Trachea midline, full range of motion, supple. LUNGS: Breath sounds equal, clear to auscultation bilaterally, no wheezes, no crackles, no accessory muscle use. HEART: Regular rate and rhythm, S1, S2 without murmur, rub or gallop. ABDOMEN: Soft, nontender, nondistended, normoactive bowel sounds, no guarding, no rebound, no hepatosplenomegaly, no masses. EXTREMITIES: 2+ pulses, warm, well-perfused, no edema. NEUROLOGICAL: Cranial nerves II through XII grossly intact. Normal speech, gait not observed. PSYCH: Normal mood, normal affect. SKIN: Warm, dry, normal turgor, no rashes or lesions noted. LABS HOSPITAL COURSE: Date of Admission:11/25/16 Date of Discharge: 12/27/16 Minutes to complete discharge: 35 Discharge Summary Reason For Visit: CONGESTIVE HEART FAILURE Current Active Problems CHF (congestive heart failure) (Acute) Condition: Improved - Instructions Diet, Activity, Other Instructions: A prescription has been sent to [facility] for prednisone. Take this medication exactly as directed and be sure to finish all the medication. Arrangements are being made to refill your prescription for milrinone. Return to the emergency department for any new or worsening symptoms. Referrals: Khang Lopez MD [Primary Care Provider] - Tommy Collier MD [Staff Physician] - Disposition: HOME - Home Medications Comprehensive Discharge Medication List: Ambulatory Orders Allopurinol [Zyloprim -] 100 mg PO DAILY 09/10/15 Atorvastatin Ca [Lipitor] 40 mg PO HS 09/10/15 Carvedilol 6.25 mg PO BID 09/10/15 Docusate Sodium [Colace -] 100 mg PO BID 09/10/15 Insulin NPL/Insulin Lispro [Humalog Mix 75-25 Vial] 0 unit SQ PRN 09/10/15 Milrinone Lactate/D5w [Milrinone 0.2 mg/ml in D5w] 0 mg IV DAILY 09/10/15 Ranitidine [Zantac -] 75 mg PO DAILY 09/10/15 Torsemide 40 mg PO BID 09/10/15 Albuterol 0.083% Nebulizer Jewell [Ventolin 0.083% Nebulizer Soln -] 1 amp NEB Q6H PRN #120 amp 09/14/15 Ferrous Sulfate [Feosol] 325 mg PO Q48H ud 04/23/16 Potassium Chloride [K-Dur -] 20 meq PO TID #90 tablet.er 04/23/16 Warfarin Na [Coumadin -] 4 mg PO DAILY@1800 09/06/16 Bupropion HCl [Wellbutrin -] 75 mg DAILY 09/08/16 Ascorbic Acid [Vitamin C -] 1,000 mg PO DAILY 11/24/16 Cholecalciferol (Vitamin D3) [Vitamin D -] 1,000 unit PO DAILY 11/24/16 Clopidogrel Bisulfate [Plavix -] 75 mg PO DAILY 11/24/16 Multivitamin [Poly-Vitamin] 1 each PO DAILY 11/24/16 Prednisone 5 mg PO ASDIR #10 tablet 11/30/16 This patient is new to me today: No Emergency Visit: Yes ED Registration Date: 11/25/16 Care time: The patient presented to the Emergency Department on the above date and was hospitalized for further evaluation of their emergent condition. Critical Care patient: No - Discharge Referral Referred to [facility] No
--- NOTE | 2016-12-27 14:19 | DS ---
Physical Exam: SUBJECTIVE: Patient seen and examined at bedside. OBJECTIVE: Vital Signs Temperature 98 F 11/30/16 10:00 Pulse Rate 79 11/30/16 12:09 Respiratory Rate 20 11/30/16 10:00 Blood Pressure 108/62 11/30/16 10:00 O2 Sat by Pulse Oximetry (%) 97 11/30/16 12:09 PHYSICAL EXAM GENERAL: The patient is awake, alert, and fully oriented, in no acute distress. HEAD: Normal with no signs of trauma. EYES: PERRL, extraocular movements intact, sclera anicteric, conjunctiva clear. No ptosis. LUNGS: Right basilar crackles. HEART: Regular rate and rhythm, S1, S2 without murmur, rub or gallop. ABDOMEN: Soft, nontender, nondistended, normoactive bowel sounds, no guarding, no rebound EXTREMITIES: 2+ pulses, warm, well-perfused, 1+ edema bilaterally NEUROLOGICAL: Cranial nerves II through XII grossly intact. Normal speech, gait not observed. LABS CBCD WBC 11.9 K/mm3 (4.0-10.0) H D 11/30/16 05:35 RBC 4.69 M/mm3 (4.00-5.60) 11/30/16 05:35 Hgb 12.2 GM/dL (11.7-16.9) 11/30/16 05:35 Hct 38.0 % (35.4-49) 11/30/16 05:35 MCV 81.1 fl (80-96) 11/30/16 05:35 MCHC 32.0 g/dl (32.0-35.9) 11/30/16 05:35 RDW 18.2 % (11.9-15.9) H 11/30/16 05:35 Plt Count 185 K/MM3 (134-434) 11/30/16 05:35 MPV 9.0 fl (7.5-11.1) 11/30/16 05:35 CMP Sodium 134 mmol/L (136-145) L 11/30/16 05:35 Potassium 3.8 mmol/L (3.5-5.1) 11/30/16 05:35 Chloride 88 mmol/L (98-107) L 11/30/16 05:35 Carbon Dioxide 34 mmol/L (21-32) H 11/30/16 05:35 Anion Gap 12 (8-16) 11/30/16 05:35 BUN 99 mg/dL (7-18) H 11/30/16 05:35 Creatinine 2.1 mg/dL (0.7-1.3) H 11/30/16 05:35 Creat Clearance w eGFR 26.31 (>60) 11/26/16 06:07 Calcium 8.5 mg/dL (8.5-10.1) 11/30/16 05:35 Total Bilirubin 0.7 mg/dL (0.2-1.0) 11/26/16 06:07 AST 20 U/L (15-37) 11/26/16 06:07 ALT 22 U/L (12-78) 11/26/16 06:07 Alkaline Phosphatase 145 U/L (45-117) H 11/26/16 06:07 Total Protein 8.1 g/dl (6.4-8.2) 11/26/16 06:07 Albumin 3.6 g/dl (3.4-5.0) 11/26/16 06:07 HOSPITAL COURSE: Date of Admission:11/25/16 Date of Discharge: 11/30/16 76-year-old man with a history of COPD, chronic hypoxic respiratory failure, end -stage chronic systolic heart failure on home milrinone, atrial fibrillation, CAD, [place], HTN, hyperlipidemia, PAD, type 2 DM, stage 4 CKD, and BPH, admitted for cough. 1. Hypokalemia, chronic - Repleted as needed 2. Bronchitis --no fever, no leukocytosis - tapering IV steroids - converted to PO upon discharge 3. COPD - Duonebs as needed 4. Chronic systolic heart failure, end-stage --signs of volume overload: mildly hyponatremic, b/l LE edema, weight up 3kg since admission --continued Lasix IV 80mg BID --continued carvedilol, milrinone drip 5. Chronic hypoxic respiratory failure - Continued oxygen to maintain saturation > 90% 6. Permanent atrial fibrillation --rate controlled, continued carvedilol - INR supratherapeutic 3.73, held coumadin 7. CAD, history of [place] - Continued Coreg, Plavix, Lipitor 8. HTN - Continued Coreg 9. Hyperlipidemia - Continued Lipitor 10. PAD 11. Type 2 diabetes mellitus - Fingersticks with Novolog sliding scale 12. Stage 4 CKD - Cr 2.1, was 2.4 on admission, baseline 2.0 Minutes to complete discharge: 35 Discharge Summary Reason For Visit: CONGESTIVE HEART FAILURE Current Active Problems CHF (congestive heart failure) (Acute) Condition: Improved - Instructions Diet, Activity, Other Instructions: A prescription has been sent to [facility] for prednisone. Take this medication exactly as directed and be sure to finish all the medication. Arrangements are being made to refill your prescription for milrinone. Return to the emergency department for any new or worsening symptoms. Referrals: Khang Lopez MD [Primary Care Provider] - Tommy Collier MD [Staff Physician] - Disposition: HOME - Home Medications Comprehensive Discharge Medication List: Ambulatory Orders Allopurinol [Zyloprim -] 100 mg PO DAILY 09/10/15 Atorvastatin Ca [Lipitor] 40 mg PO HS 09/10/15 Carvedilol 6.25 mg PO BID 09/10/15 Docusate Sodium [Colace -] 100 mg PO BID 09/10/15 Insulin NPL/Insulin Lispro [Humalog Mix 75-25 Vial] 0 unit SQ PRN 09/10/15 Milrinone Lactate/D5w [Milrinone 0.2 mg/ml in D5w] 0 mg IV DAILY 09/10/15 Ranitidine [Zantac -] 75 mg PO DAILY 09/10/15 Torsemide 40 mg PO BID 09/10/15 Albuterol 0.083% Nebulizer Jewell [Ventolin 0.083% Nebulizer Soln -] 1 amp NEB Q6H PRN #120 amp 09/14/15 Ferrous Sulfate [Feosol] 325 mg PO Q48H ud 04/23/16 Potassium Chloride [K-Dur -] 20 meq PO TID #90 tablet.er 04/23/16 Warfarin Na [Coumadin -] 4 mg PO DAILY@1800 09/06/16 Bupropion HCl [Wellbutrin -] 75 mg DAILY 09/08/16 Ascorbic Acid [Vitamin C -] 1,000 mg PO DAILY 11/24/16 Cholecalciferol (Vitamin D3) [Vitamin D -] 1,000 unit PO DAILY 11/24/16 Clopidogrel Bisulfate [Plavix -] 75 mg PO DAILY 11/24/16 Multivitamin [Poly-Vitamin] 1 each PO DAILY 11/24/16 Prednisone 5 mg PO ASDIR #10 tablet 11/30/16 This patient is new to me today: No Emergency Visit: Yes ED Registration Date: 11/25/16 Care time: The patient presented to the Emergency Department on the above date and was hospitalized for further evaluation of their emergent condition. Critical Care patient: No - Discharge Referral Referred to [facility] No
== END 2016-11-30 13:28 | disposition home or self-care (01) | DRG 189 ==
LOC: JER 12:40 → JERBED 16:20 → J4W 23:59 → OBSVTOIN 11-25 15:39
PROVIDERS: ADMIT Internal Medicine; ATTEND Nurse Practitioner Acute Care
DX: J96.20 Acute and chronic respiratory failure, unspecified whether with hypoxia or hypercapnia (principal); I50.22 Chronic systolic (congestive) heart failure; I13.0 Hypertensive heart and chronic kidney disease with heart failure and stage 1 through stage 4 chronic kidney disease, or unspecified chronic kidney disease; N18.4 Chronic kidney disease, stage 4 (severe); I42.9 Cardiomyopathy, unspecified; E87.1 Hypo-osmolality and hyponatremia; J44.0 Chronic obstructive pulmonary disease with (acute) lower respiratory infection; I48.2 Chronic atrial fibrillation; Z79.01 Long term (current) use of anticoagulants; I25.10 Atherosclerotic heart disease of native coronary artery without angina pectoris; Z95.1 Presence of aortocoronary bypass graft; I73.9 Peripheral vascular disease, unspecified; Z99.81 Dependence on supplemental oxygen; N40.0 Benign prostatic hyperplasia without lower urinary tract symptoms; E11.22 Type 2 diabetes mellitus with diabetic chronic kidney disease; E87.6 Hypokalemia; Z79.4 Long term (current) use of insulin; Z95.810 Presence of automatic (implantable) cardiac defibrillator; I25.2 Old myocardial infarction; E11.65 Type 2 diabetes mellitus with hyperglycemia; J20.9 Acute bronchitis, unspecified
CPT/HCPCS: 36415; 71010-TC; 71020-TC; 80048; 80053; 81003; 81015; 82550; 83735; 83880; 84484; 85025; 85610; 93005; 93010; 94640; 94761; 97116-GP; 97161-GP; 99285-25; G0378

== ENCOUNTER 2017-01-13 01:16 | Inpatient (IN) | payer BC, OTHER ==
[2017-01-13 01:27] VITALS: BMI 26.5
--- NOTE | 2017-01-13 02:05 | PDOC ---
History of Present Illness - General History Source: Patient, Family () Exam Limitations: No Limitations - History of Present Illness Initial Comments: 01/13/17 02:31 The patient is a 76 year old male with a significant past medical history of CHF (on the portal milrinone pump), A fib, CAD (with pacemaker, 2 stents, heart valve replacement; past episode of NC in 2010), COPD, and IDDM, who presents to the ER with shortness of breath, chest pain, and headache for 3 hours. Patient states he was in his usual state of health today before he had a sudden onset of shortness of breath, chest pain, and headache. Patient localizes the chest pain to the middle and his headache to the frontal area. He describes the pain as achy. He rates the chest pain and headache at 7/10. Patient reports that the pain persists but has slightly improved since the onset. On interview, patient says he has slight arm weakness. As per patients , patient had a blood sugar of 64 during the onset of the symptoms today and was given an orange to elevate his blood sugar. Patients baseline is at 150-200 Life Sciences Director: Dr. Valle Denies any alleviating or exacerbating factors Denies abdominal pain Denies vomiting, diarrhea Denies fever, chills Denies leg pain or swelling PCP: Dr. Lopez Senior Mechanical Engineer: Dr. Chandra <Gracia Warren - Last Filed: 01/13/17 02:30> - General History Source: Patient, Spouse <IvetteCaden - Last Filed: 01/13/17 05:46> - General Chief Complaint: Chest Pain Stated Complaint: CHEST PAIN Time Seen by Provider: 01/13/17 01:36 Past History <Gracia Warren - Last Filed: 01/13/17 02:30> - Past Medical History Anemia: Yes Asthma: No Cancer: No Cardiac Disorders: Yes (CHF, NC 2010,defibrilator placement,PACEMAKER) CVA: No COPD: Yes CHF: Yes Dementia: No Diabetes: Yes GI Disorders: No Disorders: Yes (bph) HTN: Yes Hypercholesterolemia: Yes Liver Disease: No Suicide Attempt (Hx): No Seizures: No Thyroid Disease: No - Surgical History Abdominal Surgery: Yes (HERNIA REPAIR 2002) Appendectomy: No Cardiac Surgery: Yes (2 OPEN HEART SURGERIES; TRACH PLACEMENT,PACEMAKER PLACED ) Cholecystectomy: Yes Lung Surgery: No Neurologic Surgery: No Orthopedic Surgery: No - Immunization History Td Vaccination: Yes TDAP Vaccination: Yes Immunization Up to Date: Yes - Psycho/Social/Smoking Cessation Hx Anxiety: No Suicidal Ideation: No Smoking Status: No Smoking History: Unknown if ever smoked Years of Tobacco Use: 40 Have you smoked in the past 12 months: No Number of Cigarettes Smoked Daily: 40 If you are a former smoker, when did you quit?: 2010 Cigars Per Day: 0 Information on smoking cessation initiated: No 'Breaking Loose' booklet given: 02/06/12 Hx Alcohol Use: No Drug/Substance Use Hx: No Substance Use Type: None Hx Substance Use Treatment: No <Caden Steele - Last Filed: 01/13/17 05:46> - Past Medical History Allergies/Adverse Reactions: Allergies Allergy/AdvReac Type Severity Reaction Status Date / Time No Known Drug Allergies Allergy Verified 01/13/17 01:25 shellfish derived Allergy Verified 01/13/17 01:25 Home Medications: Ambulatory Orders Allopurinol [Zyloprim -] 100 mg PO DAILY 09/10/15 Atorvastatin Ca [Lipitor] 40 mg PO HS 09/10/15 Carvedilol 6.25 mg PO BID 09/10/15 Docusate Sodium [Colace -] 100 mg PO BID 09/10/15 Insulin NPL/Insulin Lispro [Humalog Mix 75-25 Vial] 0 unit SQ PRN 09/10/15 Milrinone Lactate/D5w [Milrinone 0.2 mg/ml in D5w] 0 mg IV DAILY 09/10/15 Ranitidine [Zantac -] 75 mg PO DAILY 09/10/15 Torsemide 40 mg PO BID 09/10/15 Albuterol 0.083% Nebulizer Jewell [Ventolin 0.083% Nebulizer Soln -] 1 amp NEB Q6H PRN #120 amp 09/14/15 Ferrous Sulfate [Feosol] 325 mg PO Q48H ud 04/23/16 Potassium Chloride [K-Dur -] 20 meq PO TID #90 tablet.er 04/23/16 Warfarin Na [Coumadin -] 4 mg PO DAILY@1800 09/06/16 Bupropion HCl [Wellbutrin -] 75 mg DAILY 09/08/16 Ascorbic Acid [Vitamin C -] 1,000 mg PO DAILY 11/24/16 Cholecalciferol (Vitamin D3) [Vitamin D -] 1,000 unit PO DAILY 11/24/16 Clopidogrel Bisulfate [Plavix -] 75 mg PO DAILY 11/24/16 Multivitamin [Poly-Vitamin] 1 each PO DAILY 11/24/16 Prednisone 5 mg PO ASDIR #10 tablet 11/30/16 Review of Systems - Review of Systems Able to Perform ROS?: Yes Comments:: 01/13/17 02:31 CONSTITUTIONAL: Absent: fever, chills, diaphoresis, generalized weakness, malaise, loss of appetite HEENT: Absent: rhinorrhea, nasal congestion, throat pain, throat swelling, difficulty swallowing, mouth swelling, ear pain, eye pain, visual Changes CARDIOVASCULAR: Present: (+) chest pain Absent: syncope, palpitations, irregular heart rate, lightheadedness, peripheral edema RESPIRATORY: Present: (+) shortness of breath (+) cough Absent: dyspnea with exertion, orthopnea, wheezing, stridor, hemoptysis GASTROINTESTINAL: Absent: abdominal pain, abdominal distension, nausea, vomiting, diarrhea, constipation, melena, hematochezia GENITOURINARY: Absent: dysuria, frequency, urgency, hesitancy, hematuria, flank pain, genital pain MUSCULOSKELETAL: Present: (+) arm weakness Absent: myalgia, arthralgia, joint swelling SKIN: Absent: rash, itching, pallor HEMATOLOGIC/IMMUNOLOGIC: Absent: easy bleeding, easy bruising, lymphadenopathy, frequent infections ENDOCRINE: Absent: unexplained weight gain, unexplained weight loss, heat intolerance, cold intolerance NEUROLOGIC: Present: (+) headache Absent: focal weakness or paresthesias, dizziness, unsteady gait, seizure, mental status changes, bladder or bowel incontinence PSYCHIATRIC: Absent: anxiety, depression, suicidal or homicidal ideation, hallucinations. <Uts,Gracia - Last Filed: 01/13/17 02:30> *Physical Exam - Vital Signs Last Vital Signs Temp Pulse Resp BP Pulse Ox 98.9 F 76 22 116/83 94 L 01/13/17 01:25 01/13/17 02:09 01/13/17 01:25 01/13/17 01:25 01/13/17 02:09 - Physical Exam Comments: 01/13/17 02:34 GENERAL: Well developed, well nourished. Awake and alert. No acute distress. HEENT: Normocephalic, atraumatic. PERRLA, EOMI. No conjunctival pallor. Sclera are non- icteric. Moist mucous membranes. Oropharynx is clear. NECK: Supple. Full ROM. No JVD. Carotid pulses 2+ and symmetric, without bruits. No thyromegaly. No lymphadenopathy. CARDIOVASCULAR: Regular rate and rhythm on pacemaker. No murmurs, rubs, or gallops. Distal pulses are 2+ and symmetric. PULMONARY: Decreased breath sounds bilaterally. Crackles throughout. No wheezing, rales. ABDOMINAL: Soft. Non-tender. Non-distended. No rebound or guarding. No organomegaly. Normoactive bowel sounds. MUSCULOSKELETAL Normal range of motion at all joints. No bony deformities or tenderness. No CVA tenderness. EXTREMITIES: No calf pain. No swelling. No cyanosis. No clubbing. No edema. No calf tenderness. SKIN: Warm and dry. Normal capillary refill. No rashes. No jaundice. NEUROLOGICAL: Alert, awake, appropriate. Cranial nerves 2-12 intact. No deficits to light touch and temperature in face, upper extremities and lower extremities. No motor deficits in the in face, upper extremities and lower extremities. Normoreflexic in the upper and lower extremities. Normal speech. Toes are down- going bilaterally. Gait is normal without ataxia. PSYCHIATRIC: Cooperative. Good eye contact. Appropriate mood and affect. <BrianaGracia - Last Filed: 01/13/17 02:30> - Vital Signs Last Vital Signs Temp Pulse Resp BP Pulse Ox 98.9 F 74 22 116/83 92 L 01/13/17 01:25 01/13/17 01:25 01/13/17 01:25 01/13/17 01:25 01/13/17 01:25 <Caden Steele - Last Filed: 01/13/17 05:46> ED Treatment Course - LABORATORY CBC & Chemistry Diagram: 01/13/17 01:36 01/13/17 01:36 - ADDITIONAL ORDERS Additional order review: Laboratory Results 01/13/17 01:36 INR 2.44 H 01/13/17 01:36 RBC 4.84 MCV 81.4 MCHC 31.4 L RDW 18.4 H MPV 8.5 Neutrophils % 71.8 Lymphocytes % 15.2 D Monocytes % 10.9 H Eosinophils % 1.6 D Basophils % 0.5 D <Gracia Warren - Last Filed: 01/13/17 02:30> - LABORATORY CBC & Chemistry Diagram: 01/13/17 01:36 01/13/17 01:36 - RADIOLOGY Radiology Studies Ordered: Category Date Time Status CHEST X-RAY PORTABLE* [RAD] Stat Radiology 01/13/17 01:25 Taken <Caden Steele - Last Filed: 01/13/17 05:46> *DC/Admit/Observation/Transfer - Attestations Scribe Attestion: 01/13/17 02:36 Documentation prepared by Gracia Warren, acting as medical secretary teacher for Caden Steele DO. <Gracia Warren - Last Filed: 01/13/17 02:30> - Discharge Dispostion Admit: Yes <Caden Steele - Last Filed: 01/13/17 05:46> Diagnosis at time of Disposition: CHF (congestive heart failure), Chest pain - Discharge Dispostion Condition at time of disposition: Stable - Referrals Referrals: Khang Lopez MD [Primary Care Provider] -
[2017-01-13 02:10] LABS: BASOPHIL 0.5 % (0-2.0); EOSINOPHIL 1.6 % (0-4.5); MCH 25.6 pg (25.7-33.7); MCHC 31.4 g/dl (32.0-35.9); MEAN CELL VOLUME 81.4 fl (80-96); MEAN PLT VOLUME 8.5 fl (7.5-11.1); NEUTROPHILS 71.8 % (42.8-82.8); PLATELET COUNT 206 K/MM3 (134-434); RDW 18.4 % (11.9-15.9)
[2017-01-13 02:21] LABS: INR 2.44 (0.82-1.09); PROTHROMBIN TIME (PATIENT) 27.3 SEC (9.98-11.88)
[2017-01-13 02:47] LABS: ALBUMIN 3.3 g/dl (3.4-5.0); BILIRUBIN,TOTAL 0.4 mg/dL (0.2-1.0); CALCIUM 8.7 mg/dL (8.5-10.1); COCKROFT - GAULT 31.4; CREATININE 2.5 mg/dL (0.7-1.3); TOT PROT 7.3 g/dl (6.4-8.2)
[2017-01-13 02:49] LABS: TROPONIN I 0.04 ng/ml (0.00-0.05)
[2017-01-13] MEDS ORDERED: ALBUTEROL SO4 0.083% IH SOL 2.5 MG/3 ML VIAL.NEB. NEB PRN (10:02)
[2017-01-13] MEDS ORDERED: ACETAMINOPHEN 325 MG TABLET (FP) PO PRN (10:09)
--- NOTE | 2017-01-13 10:13 | HP ---
Admitting History and Physical - Primary Care Physician PCP: Khang Lopez - Admission Chief Complaint: I had trouble breathing History of Present Illness: Mr Teixeria is a pleasant 76 year old male who comes in with trouble breathing. He says he was doing well until 11pm last night when he had sudden onset of difficulty breathing. He says it was made worse by lying flat. Nothing relieved it. He had a cough that was productive of thick white sputum. He had chest tightness that was located retrosternally and radiated up to his head. He had nausea but no vomiting. He denies lightheadedness, dizziness, passing out, fevers, chills, sick contacts. abdominal pain, diarrhea, constipation, difficulty or pain on urination. He has chronic swelling but notes that it is worse today. History Source: Patient Limitations to Obtaining History: No Limitations - Past Medical History Cardiovascular: Yes: AFIB, CAD, CHF, HTN, Hyperlipdemia, NC, Pulmonary Hypertension, Other (AICD placed) Pulmonary: Yes: COPD, O2 Dependent Renal/: Yes: Renal Inusuff, BPH Endocrine: Yes: Diabetes Mellitus - Past Surgical History Past Surgical History: Yes: AICD, CABG, Hernia Repair - Smoking History Smoking history: Unknown if ever smoked Have you smoked in the past 12 months: No Aproximately how many cigarettes per day: 40 If you are a former smoker, when did you quit?: 2010 - Alcohol/Substance Use Hx Alcohol Use: No - Social History Usual Living Arrangement: Yes: With Spouse ADL: Independent History of Recent Travel: No Home Medications - Allergies Allergies/Adverse Reactions: Allergies Allergy/AdvReac Type Severity Reaction Status Date / Time No Known Drug Allergies Allergy Verified 01/13/17 01:25 shellfish derived Allergy Verified 01/13/17 01:25 - Home Medications Home Medications: Ambulatory Orders Allopurinol [Zyloprim -] 100 mg PO DAILY 09/10/15 Atorvastatin Ca [Lipitor] 40 mg PO HS 09/10/15 Carvedilol 6.25 mg PO BID 09/10/15 Docusate Sodium [Colace -] 100 mg PO BID 09/10/15 Insulin NPL/Insulin Lispro [Humalog Mix 75-25 Vial] 0 unit SQ PRN 09/10/15 Milrinone Lactate/D5w [Milrinone 0.2 mg/ml in D5w] 0 mg IV DAILY 09/10/15 Ranitidine [Zantac -] 75 mg PO DAILY 09/10/15 Torsemide 40 mg PO BID 09/10/15 Albuterol 0.083% Nebulizer Jewell [Ventolin 0.083% Nebulizer Soln -] 1 amp NEB Q6H PRN #120 amp 09/14/15 Ferrous Sulfate [Feosol] 325 mg PO Q48H ud 04/23/16 Potassium Chloride [K-Dur -] 20 meq PO TID #90 tablet.er 04/23/16 Warfarin Na [Coumadin -] 4 mg PO DAILY@1800 09/06/16 Bupropion HCl [Wellbutrin -] 75 mg DAILY 09/08/16 Ascorbic Acid [Vitamin C -] 1,000 mg PO DAILY 11/24/16 Cholecalciferol (Vitamin D3) [Vitamin D -] 1,000 unit PO DAILY 11/24/16 Clopidogrel Bisulfate [Plavix -] 75 mg PO DAILY 11/24/16 Multivitamin [Poly-Vitamin] 1 each PO DAILY 11/24/16 Prednisone 5 mg PO ASDIR #10 tablet 11/30/16 Family Disease History - Family Disease History Family Disease History: Diabetes: Father, Heart Disease: Father Review of Systems Findings/Remarks: Full review of systems obtained, as per HPI and otherwise negative. Physical Examination Vital Signs: Vital Signs Temperature 97.7 F 01/13/17 07:47 Pulse Rate 75 01/13/17 07:47 Respiratory Rate 16 01/13/17 07:47 Blood Pressure 114/80 01/13/17 07:47 O2 Sat by Pulse Oximetry (%) 100 01/13/17 07:47 Constitutional: Yes: Well Nourished, No Distress, Calm Eyes: Yes: Conjunctiva Clear, EOM Intact, PERRL HENT: Yes: Atraumatic, Normocephalic Cardiovascular: Yes: Regular Rate and Rhythm. No: Gallop, Murmur, Rub Respiratory: Yes: Regular, On Nasal O2, Rhonchi. No: Rales, Wheezes Gastrointestinal: Yes: Normal Bowel Sounds, Soft. No: Distention, Tenderness Extremities: Yes: WNL Edema: Yes Edema: LLE: 1+, RLE: 1+ Labs: Laboratory Results - last 24 hr 01/13/17 01/13/17 01/13/17 01:36 01:36 01:36 WBC 10.0 RBC 4.84 Hgb 12.4 Hct 39.4 MCV 81.4 MCHC 31.4 L RDW 18.4 H Plt Count 206 MPV 8.5 Neutrophils % 71.8 Lymphocytes % 15.2 D Monocytes % 10.9 H Eosinophils % 1.6 D Basophils % 0.5 D INR 2.44 H Sodium 142 Potassium 3.4 L Chloride 94 L Carbon Dioxide 38 H Anion Gap 10 BUN 63 H D Creatinine 2.5 H Creat Clearance w eGFR 25.10 POC Glucometer Random Glucose 56 L D Calcium 8.7 Total Bilirubin 0.4 D AST 17 ALT 18 Alkaline Phosphatase 151 H Creatine Kinase 39 Troponin I 0.04 B-Natriuretic Peptide 2012.19 H Total Protein 7.3 Albumin 3.3 L 01/13/17 01/13/17 08:21 11:09 WBC RBC Hgb Hct MCV MCHC RDW Plt Count MPV Neutrophils % Lymphocytes % Monocytes % Eosinophils % Basophils % INR Sodium Potassium Chloride Carbon Dioxide Anion Gap BUN Creatinine Creat Clearance w eGFR POC Glucometer [id number] 263 Random Glucose Calcium Total Bilirubin AST ALT Alkaline Phosphatase Creatine Kinase Troponin I B-Natriuretic Peptide Total Protein Albumin Imaging - Results Chest X-ray: Report Reviewed, Image Reviewed Problem List - Problems (1) Acute and chronic respiratory failure ([id number]) Assessment/Plan: -patient presents with acute shortness of breath -does not appear significantly fluid overloaded -cardiology consulted -feeling improved currently -chest x-ray not showing edema -therapeutic on coumadin, low suspicion for PE -? COPD exacerbation -will schedule duonebs -will try to hold on steroids secondary to diabetes, but start if needed -zithromax for inflammation -if does not improve, consult pulmonary Code(s): J96.20 - ACUTE AND CHR RESP FAILURE, UNSP W HYPOXIA OR HYPERCAPNIA Qualifiers: Respiratory failure complication: hypoxia Qualified Code(s): J96.21 - Acute and chronic respiratory failure with hypoxia (2) Chest pain Assessment/Plan: -atypical -cardiology to see -continue telemetry currently Code(s): R07.9 - CHEST PAIN, UNSPECIFIED (3) CHF (congestive heart failure) Assessment/Plan: -continue milrinone gtt, on at home -continue torsemide -cardiology to see Code(s): I50.9 - HEART FAILURE, UNSPECIFIED Qualifiers: Congestive heart failure type: systolic (4) CAD (coronary artery disease) Assessment/Plan: -stable -continue home regimen Code(s): I25.10 - ATHSCL HEART DISEASE OF [place] CORONARY ARTERY W/O ANG PCTRS (5) CKD (chronic kidney disease) Assessment/Plan: -at baseline -continue to monitor Code(s): N18.9 - CHRONIC KIDNEY DISEASE, UNSPECIFIED Qualifiers: Chronic kidney disease stage: stage 4 (severe) Qualified Code(s): N18.4 - Chronic kidney disease, stage 4 (severe) (6) COPD (chronic obstructive pulmonary disease) Assessment/Plan: -as above Code(s): J44.9 - CHRONIC OBSTRUCTIVE PULMONARY DISEASE, UNSPECIFIED Qualifiers : COPD type: COPD with acute exacerbation Qualified Code(s): J44.1 - Chronic obstructive pulmonary disease with (acute) exacerbation (7) Diabetes Assessment/Plan: -diabetic diet -FSBS and SSI Code(s): E11.9 - TYPE 2 DIABETES MELLITUS WITHOUT COMPLICATIONS Qualifiers: Diabetes mellitus type: type 2 Diabetes mellitus complication status: with kidney complications Diabetes mellitus complication detail: with chronic kidney disease Diabetes mellitus intermediate accountant insulin use: with group home use Chronic kidney disease stage: stage 4 (severe) Qualified Code(s): E11.22 - Type 2 diabetes mellitus with diabetic chronic kidney disease ; N18.4 - Chronic kidney disease, stage 4 (severe); Z79.4 - detention (current) use of insulin
--- NOTE | 2017-01-13 10:48 | CON.CARD ---
Cardiology Consult (text) - Consultation Consultation Note: cc: sob, cp, RODRIGEUZ hpi: 76 year old man with PMH of IDDM, COPD (O2 dependant) HTN, HLD, Afib (on coumadin), CAD s/p CABG 2012, end stage CHF with ICD placement (on milrinone pump), PVD, BPH here with sob, cp, RODRIGUEZ. Had been feeling well until last night when he developed RODRIGUEZ, sob, and sharp central cp while relaxing. His glucose was low at the time and he drank some juice and felt a little better buts sxs still present so came to ER. This AM feeling better. No fevers. No palps, dizzy, loc, pnd, orthopnea, le edema. Baseline chronic jose unchanged. Sees dr boyd for cardio. Past Medical History/Surg hx: per hpi, additionally hernia repair Soc hx: Former smoker, no etoh or illicits fam hx: brother with pvd ros: per hpi; no nasal congestion, no rash, vision changes, wt loss, gib, hematuria, muscle pains meds: Home Medications Medication Instructions Recorded Allopurinol [Zyloprim -] 100 mg PO DAILY 09/10/15 Atorvastatin Ca [Lipitor] 40 mg PO HS 09/10/15 Carvedilol 6.25 mg PO BID 09/10/15 Docusate Sodium [Colace -] 100 mg PO BID 09/10/15 Insulin NPL/Insulin Lispro 0 unit SQ PRN 09/10/15 [Humalog Mix 75-25 Vial] Milrinone Lactate/D5w [Milrinone 0 mg IV DAILY 09/10/15 0.2 mg/ml in D5w] Ranitidine [Zantac -] 75 mg PO DAILY 09/10/15 Torsemide 40 mg PO BID 09/10/15 Albuterol 0.083% Nebulizer Jewell 1 amp NEB Q6H PRN #120 amp 09/14/15 [Ventolin 0.083% Nebulizer Soln -] Ferrous Sulfate [Feosol] 325 mg PO Q48H ud 04/23/16 Potassium Chloride [K-Dur -] 20 meq PO TID #90 tablet.er 04/23/16 Warfarin Na [Coumadin -] 4 mg PO DAILY@1800 09/06/16 Bupropion HCl [Wellbutrin -] 75 mg DAILY 09/08/16 Ascorbic Acid [Vitamin C -] 1,000 mg PO DAILY 11/24/16 Cholecalciferol (Vitamin D3) 1,000 unit PO DAILY 11/24/16 [Vitamin D -] Clopidogrel Bisulfate [Plavix -] 75 mg PO DAILY 11/24/16 Multivitamin [Poly-Vitamin] 1 each PO DAILY 11/24/16 Prednisone 5 mg PO ASDIR #10 tablet 11/30/16 pe: Vital Signs Period Temp Pulse Resp BP Sys/Orantes Pulse Ox Last 24 Hr 97.7 F-98.9 F 74-80 16-26 114-124/69-83 92-100 NAD, calm JVD flat, neck supple RRR nl s1, s2 no m/r/g. cta bl, nl effort + bs soft nd, nt no le e/c/c aaox3 pos pt dp, no carotid bruits no jaundice diaphoresis Laboratory Last Values WBC 10.0 K/mm3 (4.0-10.0) 01/13/17 01:36 RBC 4.84 M/mm3 (4.00-5.60) 01/13/17 01:36 Hgb 12.4 GM/dL (11.7-16.9) 01/13/17 01:36 Hct 39.4 % (35.4-49) 01/13/17 01:36 MCV 81.4 fl (80-96) 01/13/17 01:36 MCHC 31.4 g/dl (32.0-35.9) L 01/13/17 01:36 RDW 18.4 % (11.9-15.9) H 01/13/17 01:36 Plt Count 206 K/MM3 (134-434) 01/13/17 01:36 MPV 8.5 fl (7.5-11.1) 01/13/17 01:36 Neutrophils % 71.8 % (42.8-82.8) 01/13/17 01:36 Lymphocytes % 15.2 % (8-40) D 01/13/17 01:36 Monocytes % 10.9 % (3.8-10.2) H 01/13/17 01:36 Eosinophils % 1.6 % (0-4.5) D 01/13/17 01:36 Basophils % 0.5 % (0-2.0) D 01/13/17 01:36 INR 2.44 (0.82-1.09) H 01/13/17 01:36 Sodium 142 mmol/L (136-145) 01/13/17 01:36 Potassium 3.4 mmol/L (3.5-5.1) L 01/13/17 01:36 Chloride 94 mmol/L (98-107) L 01/13/17 01:36 Carbon Dioxide 38 mmol/L (21-32) H 01/13/17 01:36 Anion Gap 10 (8-16) 01/13/17 01:36 BUN 63 mg/dL (7-18) H D 01/13/17 01:36 Creatinine 2.5 mg/dL (0.7-1.3) H 01/13/17 01:36 Creat Clearance w eGFR 25.10 (>60) 01/13/17 01:36 POC Glucometer 134.61981 UNITS (()) 01/13/17 08:21 Random Glucose 56 mg/dL (74-106) L D 01/13/17 01:36 Calcium 8.7 mg/dL (8.5-10.1) 01/13/17 01:36 Total Bilirubin 0.4 mg/dL (0.2-1.0) D 01/13/17 01:36 AST 17 U/L (15-37) 01/13/17 01:36 ALT 18 U/L (12-78) 01/13/17 01:36 Alkaline Phosphatase 151 U/L (45-117) H 01/13/17 01:36 Creatine Kinase 39 IU/L (39-308) 01/13/17 01:36 Troponin I 0.04 ng/ml (0.00-0.05) 01/13/17 01:36 B-Natriuretic Peptide 2012.19 pg/ml (5-450) H 01/13/17 01:36 Total Protein 7.3 g/dl (6.4-8.2) 01/13/17 01:36 Albumin 3.3 g/dl (3.4-5.0) L 01/13/17 01:36 ecg 01/13/17: vp packaging echo 05/2016: sev lve, global hk, sev dec lvef, mild rve, nl rv fcn, estefania, mild- mod mr, mv ring, tv ring, mild tr, mild pr, mild phtn, ivc mild dil cxr: no sig chf tele: vp packaging a/p: 76 year old man with PMH of IDDM, COPD (O2 dependant) HTN, HLD, Afib (on coumadin), CAD s/p CABG 2012, end stage CHF with ICD placement (on milrinone pump), PVD, BPH here with sob, cp, RODRIGUEZ. sob: -no signs vol overload, pulm edema -cxr with chronic findings, bnp at baseline, wt below baseline -does not seem cardiac related at present cp: -improved, atypical cp, no signs of acs -ce's neg x1, cont to shahram, monitor on tele chronic end stage systolic heart failure s/p ICD, on home milrinone infusion: - dry wt in low 200 lbs, currently at his baseline - cxr with chronic findings, bnp at baseline - vol status seems stable, cont home torsemide 40 po bid as doing - cont milrinone at patient's home maintenance dose (on chronic infusion destination therapy)--0.35 mcg/kg/min. - cont home coreg - recent office icd check with stable function afib - currently rate controlled on coreg - cont coumadin per INR PVD - con't AC, statin. CAD s/p CABG - No anginal symptoms, no signs acs. Con't home ac, atorvastatin, coreg HTN: controlled on coreg HLD: con't statin. CKD - close to baseline
[2017-01-13] MEDS: FERROUS SO4 325 MG TABLET (FP) PO SCH (12:50)
[2017-01-13] MEDS: INSULIN SLIDING SCALE (NOVOLOG) 1 VIAL SQ SCH ×3 (12:50→21:06)
[2017-01-13] MEDS: POTASSIUM CHLORIDE TABS 20 MEQ TABLET.ER (FP) PO SCH ×2 (13:43→21:06)
[2017-01-13] MEDS: TORSEMIDE 20 MG TABLET (FP) PO SCH (13:43)
[2017-01-13] MEDS ORDERED: MILRINONE 20MG/100ML IVPB - 100 ML IVPB SCH (15:00)
--- NOTE | 2017-01-13 16:15 | EKG ---
Test Reason : Blood Pressure : / mmHG Vent. Rate : 076 BPM Atrial Rate : 076 BPM P-R Int : 000 ms QRS Dur : 212 ms QT Int : 514 ms P-R-T Axes : 000 228 031 degrees QTc Int : 578 ms Ventricular-paced rhythm WITH OCCASIONAL PREMATURE VENTRICULAR COMPLEXES Biventricular pacemaker detected ABNORMAL ECG WHEN COMPARED WITH ECG OF 24-NOV-2016 14:36, PREMATURE VENTRICULAR COMPLEXES ARE NOW PRESENT Confirmed by JOSIE HARVEY, JAYDA ([id number]) on 01/13/2017 4:14:43 PM Referred By: Confirmed By:JAYDA GALINDO MD
[2017-01-13] MEDS: MILRINONE 20MG/100ML IVPB - 100 ML IVPB SCH (16:35)
[2017-01-13] MEDS: AZITHROMYCIN IVPB 250 ML IVPB SCH (17:17)
[2017-01-13] MEDS: WARFARIN NA 2 MG TABLET (UD) PO SCH (17:18)
[2017-01-13 20:45] LABS: URINE APPEARANCE CLEAR; URINE BILIRUBIN NEGATIVE (NEGATIVE); URINE BLOOD NEGATIVE (NEGATIVE); URINE COLOR LTYELLOW; URINE GLUCOSE (UA) NEGATIVE (NEGATIVE); URINE KETONE NEGATIVE (NEGATIVE); URINE NITRITE NEGATIVE (NEGATIVE); URINE PROTEIN NEGATIVE (NEGATIVE); URINE UROBILINOGEN NEGATIVE E.U./dl (0.2-1.0)
[2017-01-13 20:46] LABS: URINE LEUK ESTERASE TRACE (NEGATIVE)
[2017-01-13 20:58] LABS: URINE HYALINE CAST 9 /lpf; URINE MUCUS RARE; URINE RBC <1 /hpf (0-3); URINE WBC 7 /hpf (3-5)
[2017-01-13] MEDS: ATORVASTATIN CA 40 MG TABLET (FP) PO SCH (21:06)
[2017-01-13] MEDS: CARVEDILOL 6.25 MG TABLET (FP) PO SCH (21:06)
[2017-01-13] MEDS: DOCUSATE SODIUM 100 MG CAPSULE (FP) PO SCH (21:08)
[2017-01-13] MEDS: ALBUTEROL SO4 2.5/IPRATROPIUM 0.5 INH SOL 3 ML VIAL.NEB. NEB SCH (22:56)
[2017-01-14] MEDS: TORSEMIDE 20 MG TABLET (FP) PO SCH ×2 (05:58→13:34)
[2017-01-14] MEDS: POTASSIUM CHLORIDE TABS 20 MEQ TABLET.ER (FP) PO SCH ×3 (05:58→21:06)
[2017-01-14] MEDS: INSULIN SLIDING SCALE (NOVOLOG) 1 VIAL SQ SCH ×4 (05:59→21:06)
[2017-01-14] MEDS: ALBUTEROL SO4 2.5/IPRATROPIUM 0.5 INH SOL 3 ML VIAL.NEB. NEB SCH ×3 (06:20→22:49)
[2017-01-14 07:20] LABS: BASOPHIL 0.4 % (0-2.0); MEAN CELL VOLUME 81.2 fl (80-96); MEAN PLT VOLUME 8.6 fl (7.5-11.1); NEUTROPHILS 68.2 % (42.8-82.8); PLATELET COUNT 187 K/MM3 (134-434); WHITE BLOOD COUNT 7.4 K/mm3 (4.0-10.0)
[2017-01-14 07:43] LABS: CALCIUM 8.9 mg/dL (8.5-10.1); COCKROFT - GAULT 36.5; CREATININE 2.2 mg/dL (0.7-1.3); MAGNESIUM 2.7 mg/dL (1.8-2.4); PHOSPHOROUS 3.5 mg/dL (2.5-4.9)
[2017-01-14 08:56] LABS: INR 2.45 (0.82-1.09); PROTHROMBIN TIME (PATIENT) 27.5 SEC (9.98-11.88)
[2017-01-14] MEDS ORDERED: [UNRECOGNIZED DRUG - OTHER] IV SCH (10:00)
[2017-01-14] MEDS ORDERED: D5W IV SCH (10:00)
[2017-01-14] MEDS ORDERED: MILRINONE LACTATE IV SCH (10:00)
--- NOTE | 2017-01-14 10:30 | PN ---
Progress Note, Physician History of Present Illness: Has been feeling a little better with decreased shortness of breath. No further RODRIGUEZ or nausea. - Current Medication List Current Medications: Active Medications Acetaminophen (Tylenol -) 650 mg PO Q4H PRN PRN Reason: FEVER OR PAIN Albuterol Sulfate (Ventolin 0.083% Nebulizer Soln -) 1 amp NEB Q6H PRN PRN Reason: SHORT OF BREATH/WHEEZING Albuterol/Ipratropium (Duoneb -) 1 amp NEB TIDR [facility] Last Admin: 01/14/17 06:20 Dose: 1 amp Allopurinol (Zyloprim -) 100 mg PO DAILY [facility] Ascorbic Acid (Vitamin C -) 1,000 mg PO DAILY [facility] Atorvastatin Calcium (Lipitor -) 40 mg PO HS [facility] Last Admin: 01/13/17 21:06 Dose: 40 mg Bupropion HCl (Wellbutrin -) 75 mg PO DAILY [facility] Carvedilol (Coreg -) 6.25 mg PO BID [facility] Last Admin: 01/13/17 21:06 Dose: 6.25 mg Cholecalciferol (Vitamin D3 -) 1,000 unit PO DAILY [facility] Clopidogrel Bisulfate (Plavix -) 75 mg PO DAILY [facility] Docusate Sodium (Colace -) 100 mg PO BID [facility] Last Admin: 01/13/17 21:08 Dose: 100 mg Ferrous Sulfate (Feosol -) 325 mg PO Q2D [facility] Last Admin: 01/13/17 12:50 Dose: 325 mg Milrinone Lactate/Dextrose (Milrinone 20mg/100ml Ivpb -) 100 mls @ 9.573 mls/ hr IVPB TITR [facility] PRN Reason: 0.35 MCG/KG/MIN Last Admin: 01/13/17 16:35 Dose: 9.573 mls/hr Azithromycin (Zithromax 500mg Ivpb (Pre-Docked)) 250 mls @ 250 mls/hr IVPB DAILY [facility] Last Admin: 01/13/17 17:17 Dose: 250 mls/hr Insulin Aspart (Novolog Vial Sliding Scale -) 1 vial SQ ACHS [facility] PRN Reason: Protocol Last Admin: 01/14/17 05:59 Dose: Not Given Non-Formulary Medication (Multivitamin [Poly-Vitamin]) 1 each PO DAILY [facility] Potassium Chloride (K-Dur -) 20 meq PO TID [facility] Last Admin: 01/14/17 05:58 Dose: 20 meq Ranitidine HCl (Zantac -) 75 mg PO DAILY [facility] Torsemide (Demadex -) 40 mg PO BID@0600,1400 [facility] Last Admin: 01/14/17 05:58 Dose: 40 mg Warfarin Sodium (Coumadin -) 4 mg PO DAILY@1800 [facility] Last Admin: 01/13/17 17:18 Dose: 4 mg - Objective Vital Signs: Vital Signs Temperature 97.5 F L 01/14/17 06:00 Pulse Rate 75 01/14/17 06:00 Respiratory Rate 20 01/14/17 06:00 Blood Pressure 115/71 01/14/17 06:00 O2 Sat by Pulse Oximetry (%) 100 01/13/17 21:00 Constitutional: Yes: No Distress, Calm Eyes: Yes: Conjunctiva Clear, EOM Intact, PERRL HENT: Yes: Atraumatic, Normocephalic Neck: Yes: Supple, Trachea Midline Cardiovascular: Yes: S1, S2. No: Murmur Respiratory: Yes: Regular, Diminished (bilateral lungs) Gastrointestinal: Yes: Normal Bowel Sounds, Soft. No: Distention, Tenderness Edema: Yes Edema: LLE: 2+, RLE: 2+ Neurological: Yes: Alert Labs: CBC, BMP 01/14/17 06:00 01/14/17 06:00 INR, PTT INR 2.45 (0.82-1.09) H 01/14/17 06:00 Assessment/Plan All Active Problems Acute kidney injury (Acute) CHF (congestive heart failure) (Acute) Chest pain (Acute) Diabetes (Acute) AICD (automatic cardioverter/defibrillator) present (Acute) Abscess (Acute) Acute and chronic respiratory failure ([id number]) (Acute) Acute bronchitis and bronchiolitis (Acute) Acute on chronic renal insufficiency (Acute) Atrial fibrillation (Acute) CAD (coronary artery disease) (Acute) CKD (chronic kidney disease) (Acute) COPD (chronic obstructive pulmonary disease) (Acute) Cardiomyopathy (Acute) Cellulitis (Acute) Cellulitis and abscess of leg (Acute) Chronic kidney disease (CKD) stage G3a/A3, moderately decreased glomerular filtration rate (GFR) between 45-59 mL/min/1.73 square meter and albuminuria creatinine ratio greater than 300 mg/g (Acute) Cough (Acute) Diabetes mellitus, insulin dependent (IDDM), uncontrolled (Acute) Dyspnea on exertion (Acute) Electrolyte abnormality (Acute) Gastroenteritis (Acute) Hematoma (Acute) Hypokalemia (Acute) Pancreatic mass (Acute) Presence of permanent cardiac pacemaker (Acute) Renal insufficiency (Acute) Renal mass (Acute) Superficial bruising of foot (Acute) Urinary tract infection (Acute) Vascular catheter dysfunction (Acute) Vomiting (Acute) -likely current shortness of breath from bronchial infection/ bronchitis -cont nebs/ abx -continuing on home CHF regimen/ milrinone pump
--- NOTE | 2017-01-14 10:38 | PN ---
Progress Note, Physician History of Present Illness: Tele A-paced 80s No CV complaints - Current Medication List Current Medications: Active Medications Acetaminophen (Tylenol -) 650 mg PO Q4H PRN PRN Reason: FEVER OR PAIN Albuterol Sulfate (Ventolin 0.083% Nebulizer Soln -) 1 amp NEB Q6H PRN PRN Reason: SHORT OF BREATH/WHEEZING Albuterol/Ipratropium (Duoneb -) 1 amp NEB TIDR [facility] Last Admin: 01/14/17 06:20 Dose: 1 amp Allopurinol (Zyloprim -) 100 mg PO DAILY [facility] Ascorbic Acid (Vitamin C -) 1,000 mg PO DAILY [facility] Atorvastatin Calcium (Lipitor -) 40 mg PO HS [facility] Last Admin: 01/13/17 21:06 Dose: 40 mg Bupropion HCl (Wellbutrin -) 75 mg PO DAILY [facility] Carvedilol (Coreg -) 6.25 mg PO BID [facility] Last Admin: 01/13/17 21:06 Dose: 6.25 mg Cholecalciferol (Vitamin D3 -) 1,000 unit PO DAILY [facility] Clopidogrel Bisulfate (Plavix -) 75 mg PO DAILY [facility] Docusate Sodium (Colace -) 100 mg PO BID [facility] Last Admin: 01/13/17 21:08 Dose: 100 mg Ferrous Sulfate (Feosol -) 325 mg PO Q2D [facility] Last Admin: 01/13/17 12:50 Dose: 325 mg Milrinone Lactate/Dextrose (Milrinone 20mg/100ml Ivpb -) 100 mls @ 9.573 mls/ hr IVPB TITR [facility] PRN Reason: 0.35 MCG/KG/MIN Last Admin: 01/13/17 16:35 Dose: 9.573 mls/hr Azithromycin (Zithromax 500mg Ivpb (Pre-Docked)) 250 mls @ 250 mls/hr IVPB DAILY [facility] Last Admin: 01/13/17 17:17 Dose: 250 mls/hr Insulin Aspart (Novolog Vial Sliding Scale -) 1 vial SQ ACHS [facility] PRN Reason: Protocol Last Admin: 01/14/17 05:59 Dose: Not Given Non-Formulary Medication (Multivitamin [Poly-Vitamin]) 1 each PO DAILY [facility] Potassium Chloride (K-Dur -) 20 meq PO TID [facility] Last Admin: 01/14/17 05:58 Dose: 20 meq Ranitidine HCl (Zantac -) 75 mg PO DAILY [facility] Torsemide (Demadex -) 40 mg PO BID@0600,1400 [facility] Last Admin: 01/14/17 05:58 Dose: 40 mg Warfarin Sodium (Coumadin -) 4 mg PO DAILY@1800 [facility] Last Admin: 01/13/17 17:18 Dose: 4 mg - Objective Vital Signs: Vital Signs Temperature 97.5 F L 01/14/17 06:00 Pulse Rate 75 01/14/17 06:00 Respiratory Rate 20 01/14/17 06:00 Blood Pressure 115/71 01/14/17 06:00 O2 Sat by Pulse Oximetry (%) 100 01/13/17 21:00 Constitutional: Yes: No Distress Eyes: Yes: WNL HENT: Yes: WNL Neck: Yes: WNL Cardiovascular: Yes: Regular Rate and Rhythm Respiratory: Yes: CTA Bilaterally Edema: Yes Labs: CBC, BMP 01/14/17 06:00 01/14/17 06:00 INR, PTT INR 2.45 (0.82-1.09) H 01/14/17 06:00 Assessment/Plan a/p: 76 year old man with PMH of IDDM, COPD (O2 dependant) HTN, HLD, Afib (on coumadin), CAD s/p CABG 2012, end stage CHF with ICD placement (on milrinone pump), PVD, BPH here with sob, cp, RODRIGUEZ. sob: -no signs vol overload, pulm edema -cxr with chronic findings, bnp at baseline, wt below baseline -does not seem cardiac related at present cp: -improved, atypical cp, no signs of acs -ce's neg x1, cont to shahram, monitor on tele chronic end stage systolic heart failure s/p ICD, on home milrinone infusion: - vol status seems stable, cont home torsemide 40 po bid as doing - cont milrinone at patient's home maintenance dose (on chronic infusion destination therapy)--0.35 mcg/kg/min. - cont home coreg - recent office icd check with stable function afib - currently rate controlled on coreg - cont coumadin per INR PVD - con't AC, statin. CAD s/p CABG - No anginal symptoms, no signs acs. Con't home ac, atorvastatin, coreg HTN: controlled on coreg HLD: con't statin. CKD - close to baseline
[2017-01-14] MEDS: ASCORBIC ACID 500 MG TABLET (FP) PO SCH (10:58)
[2017-01-14] MEDS: RANITIDINE HCL 150 MG TABLET (FP) PO SCH (10:58)
[2017-01-14] MEDS: AZITHROMYCIN IVPB 250 ML IVPB SCH (10:59)
[2017-01-14] MEDS: CLOPIDOGREL BISULFATE 75 MG TABLET (FP) PO SCH (10:59)
[2017-01-14] MEDS: ALLOPURINOL 100 MG TABLET (FP) PO SCH (10:59)
[2017-01-14] MEDS: CHOLECALCIFEROL (VITAMIN D3) 400 UNIT TABLET (FP) PO SCH (10:59)
[2017-01-14] MEDS: DOCUSATE SODIUM 100 MG CAPSULE (FP) PO SCH ×2 (10:59→21:06)
[2017-01-14] MEDS: CARVEDILOL 6.25 MG TABLET (FP) PO SCH ×2 (10:59→21:06)
[2017-01-14] MEDS ORDERED: INSULIN (NOVOLOG) ASPART 100 UNITS/ML 10ML VIAL ONE (12:01)
[2017-01-14] MEDS: MILRINONE 20MG/100ML IVPB - 100 ML IVPB SCH (16:07)
[2017-01-14] MEDS: WARFARIN NA 2 MG TABLET (UD) PO SCH (17:26)
[2017-01-14] MEDS: ATORVASTATIN CA 40 MG TABLET (FP) PO SCH (21:06)
[2017-01-14] MEDS ORDERED: PT OWN MED DRAWER 7, Y5N ONE (23:44)
[2017-01-15] MEDS: TORSEMIDE 20 MG TABLET (FP) PO SCH ×2 (06:24→14:20)
[2017-01-15] MEDS: POTASSIUM CHLORIDE TABS 20 MEQ TABLET.ER (FP) PO SCH ×3 (06:25→21:48)
[2017-01-15] MEDS: INSULIN SLIDING SCALE (NOVOLOG) 1 VIAL SQ SCH ×4 (06:27→21:47)
[2017-01-15] MEDS: ALBUTEROL SO4 2.5/IPRATROPIUM 0.5 INH SOL 3 ML VIAL.NEB. NEB SCH ×3 (07:11→22:38)
[2017-01-15 07:16] LABS: BASOPHIL 0.5 % (0-2.0); EOSINOPHIL 1.5 % (0-4.5); MCH 26.2 pg (25.7-33.7); MCHC 32.1 g/dl (32.0-35.9); MEAN CELL VOLUME 81.5 fl (80-96); MEAN PLT VOLUME 8.7 fl (7.5-11.1); NEUTROPHILS 76.3 % (42.8-82.8); RDW 18.3 % (11.9-15.9); WHITE BLOOD COUNT 10.3 K/mm3 (4.0-10.0)
[2017-01-15 07:43] LABS: ALBUMIN 3.2 g/dl (3.4-5.0); BILIRUBIN,TOTAL 0.7 mg/dL (0.2-1.0); CALCIUM 8.7 mg/dL (8.5-10.1); COCKROFT - GAULT 40.25
--- NOTE | 2017-01-15 09:15 | PN ---
Progress Note, Physician History of Present Illness: Patient feeling a little better, but notes going to the bathroom often (stool as well as urine). No further RODRIGUEZ or chest pain. - Current Medication List Current Medications: Active Medications Acetaminophen (Tylenol -) 650 mg PO Q4H PRN PRN Reason: FEVER OR PAIN Albuterol Sulfate (Ventolin 0.083% Nebulizer Soln -) 1 amp NEB Q6H PRN PRN Reason: SHORT OF BREATH/WHEEZING Albuterol/Ipratropium (Duoneb -) 1 amp NEB TIDR [facility] Last Admin: 01/15/17 07:11 Dose: 1 amp Allopurinol (Zyloprim -) 100 mg PO DAILY [facility] Last Admin: 01/14/17 10:59 Dose: 100 mg Ascorbic Acid (Vitamin C -) 1,000 mg PO DAILY [facility] Last Admin: 01/14/17 10:58 Dose: 1,000 mg Atorvastatin Calcium (Lipitor -) 40 mg PO HS [facility] Last Admin: 01/14/17 21:06 Dose: 40 mg Bupropion HCl (Wellbutrin -) 75 mg PO DAILY [facility] Carvedilol (Coreg -) 6.25 mg PO BID [facility] Last Admin: 01/14/17 21:06 Dose: 6.25 mg Cholecalciferol (Vitamin D3 -) 1,000 unit PO DAILY [facility] Last Admin: 01/14/17 10:59 Dose: 1,000 unit Clopidogrel Bisulfate (Plavix -) 75 mg PO DAILY [facility] Last Admin: 01/14/17 10:59 Dose: 75 mg Docusate Sodium (Colace -) 100 mg PO BID [facility] Last Admin: 01/14/17 21:06 Dose: 100 mg Ferrous Sulfate (Feosol -) 325 mg PO Q2D [facility] Last Admin: 01/13/17 12:50 Dose: 325 mg Milrinone Lactate/Dextrose (Milrinone 20mg/100ml Ivpb -) 100 mls @ 9.573 mls/ hr IVPB TITR [facility] PRN Reason: 0.35 MCG/KG/MIN Last Titration: 01/14/17 23:54 Dose: 0.34 mcg/kg/min Azithromycin (Zithromax 500mg Ivpb (Pre-Docked)) 250 mls @ 250 mls/hr IVPB DAILY [facility] Last Admin: 01/14/17 10:59 Dose: 250 mls/hr Insulin Aspart (Novolog Vial Sliding Scale -) 1 vial SQ ACHS [facility] PRN Reason: Protocol Last Admin: 01/15/17 06:27 Dose: 1 units Multivitamins/Minerals/Vitamin C (Tab-A-Vit -) 1 tab PO DAILY [facility] Potassium Chloride (K-Dur -) 20 meq PO TID [facility] Last Admin: 01/15/17 06:25 Dose: 20 meq Ranitidine HCl (Zantac -) 75 mg PO DAILY [facility] Last Admin: 01/14/17 10:58 Dose: 75 mg Torsemide (Demadex -) 40 mg PO BID@0600,1400 [facility] Last Admin: 01/15/17 06:24 Dose: 40 mg Warfarin Sodium (Coumadin -) 4 mg PO DAILY@1800 [facility] Last Admin: 01/14/17 17:26 Dose: 4 mg - Objective Vital Signs: Vital Signs Temperature 97.7 F 01/15/17 06:00 Pulse Rate 79 01/15/17 06:00 Respiratory Rate 20 01/15/17 06:00 Blood Pressure 128/67 01/15/17 06:00 O2 Sat by Pulse Oximetry (%) 95 01/14/17 21:00 Constitutional: Yes: No Distress, Calm Neck: Yes: Supple, Trachea Midline Cardiovascular: Yes: Pulse Irregular, Murmur, S1, S2 Respiratory: Yes: Regular, CTA Bilaterally. No: Rales, Rhonchi, Wheezes Gastrointestinal: Yes: Normal Bowel Sounds, Soft. No: Distention, Tenderness Edema: Yes Edema: LLE: Trace, RLE: Trace Neurological: Yes: Alert, Oriented Labs: CBC, BMP 01/15/17 06:00 01/15/17 06:00 INR, PTT INR 2.45 (0.82-1.09) H 01/14/17 06:00 Assessment/Plan All Active Problems Acute kidney injury (Acute) CHF (congestive heart failure) (Acute) Chest pain (Acute) Diabetes (Acute) AICD (automatic cardioverter/defibrillator) present (Acute) Abscess (Acute) Acute and chronic respiratory failure ([id number]) (Acute) Acute bronchitis and bronchiolitis (Acute) Acute on chronic renal insufficiency (Acute) Atrial fibrillation (Acute) CAD (coronary artery disease) (Acute) CKD (chronic kidney disease) (Acute) COPD (chronic obstructive pulmonary disease) (Acute) Cardiomyopathy (Acute) Cellulitis (Acute) Cellulitis and abscess of leg (Acute) Chronic kidney disease (CKD) stage G3a/A3, moderately decreased glomerular filtration rate (GFR) between 45-59 mL/min/1.73 square meter and albuminuria creatinine ratio greater than 300 mg/g (Acute) Cough (Acute) Diabetes mellitus, insulin dependent (IDDM), uncontrolled (Acute) Dyspnea on exertion (Acute) Electrolyte abnormality (Acute) Gastroenteritis (Acute) Hematoma (Acute) Hypokalemia (Acute) Pancreatic mass (Acute) Presence of permanent cardiac pacemaker (Acute) Renal insufficiency (Acute) Renal mass (Acute) Superficial bruising of foot (Acute) Urinary tract infection (Acute) Vascular catheter dysfunction (Acute) Vomiting (Acute) -cont current treatment -if remains stable in to tomorrow, consider discharge
[2017-01-15 09:57] LABS: PLATELET COUNT 175 K/MM3 (134-434); PLATELET ESTIMATE ADEQUATE (NORMAL)
[2017-01-15] MEDS ORDERED: PT OWN MED DRAWER 7, Y5N ONE ×2 (10:04→20:28)
[2017-01-15] MEDS: CLOPIDOGREL BISULFATE 75 MG TABLET (FP) PO SCH (10:12)
[2017-01-15] MEDS: CHOLECALCIFEROL (VITAMIN D3) 400 UNIT TABLET (FP) PO SCH (10:12)
[2017-01-15] MEDS: FERROUS SO4 325 MG TABLET (FP) PO SCH (10:13)
[2017-01-15] MEDS: ALLOPURINOL 100 MG TABLET (FP) PO SCH (10:13)
[2017-01-15] MEDS: DOCUSATE SODIUM 100 MG CAPSULE (FP) PO SCH ×2 (10:13→21:48)
[2017-01-15] MEDS: CARVEDILOL 6.25 MG TABLET (FP) PO SCH ×2 (10:13→21:47)
[2017-01-15] MEDS: ASCORBIC ACID 500 MG TABLET (FP) PO SCH (10:13)
[2017-01-15] MEDS: MULTIVITAMINS (DAILY MVI) TABLET (FP) PO SCH (10:13)
[2017-01-15] MEDS: buPROPion HCL 75 MG TABLET PO SCH (10:13)
[2017-01-15] MEDS: AZITHROMYCIN IVPB 250 ML IVPB SCH ×2 (10:13→10:24)
[2017-01-15] MEDS: RANITIDINE HCL 150 MG TABLET (FP) PO SCH (10:13)
--- NOTE | 2017-01-15 11:47 | PN ---
Progress Note, Physician History of Present Illness: No CV complaints Tolerating IV Milrinone Tele: V-paced, occasional PVC, no sustatained arrhythmias - Current Medication List Current Medications: Active Medications Acetaminophen (Tylenol -) 650 mg PO Q4H PRN PRN Reason: FEVER OR PAIN Albuterol Sulfate (Ventolin 0.083% Nebulizer Soln -) 1 amp NEB Q6H PRN PRN Reason: SHORT OF BREATH/WHEEZING Albuterol/Ipratropium (Duoneb -) 1 amp NEB TIDR [facility] Last Admin: 01/15/17 07:11 Dose: 1 amp Allopurinol (Zyloprim -) 100 mg PO DAILY [facility] Last Admin: 01/15/17 10:13 Dose: 100 mg Ascorbic Acid (Vitamin C -) 1,000 mg PO DAILY [facility] Last Admin: 01/15/17 10:13 Dose: 1,000 mg Atorvastatin Calcium (Lipitor -) 40 mg PO HS [facility] Last Admin: 01/14/17 21:06 Dose: 40 mg Azithromycin (Zithromax -) 250 mg PO DAILY [facility] Bupropion HCl (Wellbutrin -) 75 mg PO DAILY [facility] Last Admin: 01/15/17 10:13 Dose: 75 mg Carvedilol (Coreg -) 6.25 mg PO BID [facility] Last Admin: 01/15/17 10:13 Dose: 6.25 mg Cholecalciferol (Vitamin D3 -) 1,000 unit PO DAILY [facility] Last Admin: 01/15/17 10:12 Dose: 1,000 unit Clopidogrel Bisulfate (Plavix -) 75 mg PO DAILY [facility] Last Admin: 01/15/17 10:12 Dose: 75 mg Docusate Sodium (Colace -) 100 mg PO BID [facility] Last Admin: 01/15/17 10:13 Dose: 100 mg Ferrous Sulfate (Feosol -) 325 mg PO Q2D [facility] Last Admin: 01/15/17 10:13 Dose: 325 mg Milrinone Lactate/Dextrose (Milrinone 20mg/100ml Ivpb -) 100 mls @ 9.573 mls/ hr IVPB TITR [facility] PRN Reason: 0.35 MCG/KG/MIN Last Titration: 01/14/17 23:54 Dose: 0.34 mcg/kg/min Insulin Aspart (Novolog Vial Sliding Scale -) 1 vial SQ ACHS [facility] PRN Reason: Protocol Last Admin: 01/15/17 06:27 Dose: 1 units Multivitamins/Minerals/Vitamin C (Tab-A-Vit -) 1 tab PO DAILY [facility] Last Admin: 01/15/17 10:13 Dose: 1 tab Potassium Chloride (K-Dur -) 20 meq PO TID [facility] Last Admin: 01/15/17 06:25 Dose: 20 meq Ranitidine HCl (Zantac -) 75 mg PO DAILY [facility] Last Admin: 01/15/17 10:13 Dose: 75 mg Torsemide (Demadex -) 40 mg PO BID@0600,1400 [facility] Last Admin: 01/15/17 06:24 Dose: 40 mg Warfarin Sodium (Coumadin -) 4 mg PO DAILY@1800 [facility] Last Admin: 01/14/17 17:26 Dose: 4 mg - Objective Vital Signs: Vital Signs Temperature 97.9 F 01/15/17 10:00 Pulse Rate 76 01/15/17 10:00 Respiratory Rate 20 01/15/17 10:00 Blood Pressure 116/74 01/15/17 10:00 O2 Sat by Pulse Oximetry (%) 96 01/15/17 10:00 Constitutional: Yes: No Distress Eyes: Yes: WNL HENT: Yes: WNL Neck: Yes: WNL Cardiovascular: Yes: Regular Rate and Rhythm Respiratory: Yes: CTA Bilaterally Gastrointestinal: Yes: WNL Edema: No (LE warm) Labs: CBC, BMP 01/15/17 06:00 01/15/17 06:00 INR, PTT INR 2.45 (0.82-1.09) H 01/14/17 06:00 Assessment/Plan a/p: 76 year old man with PMH of IDDM, COPD (O2 dependant) HTN, HLD, Afib (on coumadin), CAD s/p CABG 2012, end stage CHF with ICD placement (on milrinone pump), PVD, BPH here with sob, cp, RODRIGUEZ. sob: -no signs vol overload, pulm edema -cxr with chronic findings, bnp at baseline, wt below baseline -does not seem cardiac related at present cp: -improved, atypical cp, no signs of acs -ce's neg x1, cont to shahram, monitor on tele chronic end stage systolic heart failure s/p ICD, on home milrinone infusion: - vol status seems stable, cont home torsemide 40 po bid as doing - cont milrinone at patient's home maintenance dose (on chronic infusion destination therapy)--0.35 mcg/kg/min. - cont home coreg - recent office icd check with stable function afib - currently rate controlled on coreg - cont coumadin per INR PVD - con't AC, statin. CAD s/p CABG - No anginal symptoms, no signs acs. Con't home ac, atorvastatin, coreg HTN: controlled on coreg HLD: con't statin. CKD - close to baseline
[2017-01-15] MEDS: AZITHROMYCIN 250 MG TABLET (FP) PO SCH (12:10)
[2017-01-15] MEDS: MILRINONE 20MG/100ML IVPB - 100 ML IVPB SCH (17:04)
[2017-01-15] MEDS: WARFARIN NA 2 MG TABLET (UD) PO SCH (17:07)
[2017-01-15] MEDS: ATORVASTATIN CA 40 MG TABLET (FP) PO SCH (21:48)
[2017-01-16] MEDS: TORSEMIDE 20 MG TABLET (FP) PO SCH (05:59)
[2017-01-16] MEDS: POTASSIUM CHLORIDE TABS 20 MEQ TABLET.ER (FP) PO SCH ×3 (05:59→23:12)
[2017-01-16] MEDS: INSULIN SLIDING SCALE (NOVOLOG) 1 VIAL SQ SCH ×4 (06:00→23:20)
[2017-01-16] MEDS: ALBUTEROL SO4 2.5/IPRATROPIUM 0.5 INH SOL 3 ML VIAL.NEB. NEB SCH ×3 (06:38→22:00)
[2017-01-16] MEDS: MILRINONE 20MG/100ML IVPB - 100 ML IVPB SCH ×3 (07:00→17:41)
[2017-01-16 07:55] LABS: BASOPHIL 0.4 % (0-2.0); EOSINOPHIL 0.4 % (0-4.5); MCHC 31.7 g/dl (32.0-35.9); MEAN CELL VOLUME 81.9 fl (80-96); MEAN PLT VOLUME 8.9 fl (7.5-11.1); NEUTROPHILS 82.6 % (42.8-82.8); PLATELET COUNT 172 K/MM3 (134-434); WHITE BLOOD COUNT 11.6 K/mm3 (4.0-10.0)
[2017-01-16 08:21] LABS: INR 3.14 (0.82-1.09); PROTHROMBIN TIME (PATIENT) 35.4 SEC (9.98-11.88)
[2017-01-16 08:38] LABS: ALBUMIN 3.3 g/dl (3.4-5.0); BILIRUBIN,TOTAL 1.2 mg/dL (0.2-1.0); COCKROFT - GAULT 40.42
--- NOTE | 2017-01-16 09:14 | PN ---
Progress Note, Physician Chief Complaint: sob History of Present Illness: no more sob, incl walking to bathroom with walker; no orthopnea no leg swelling no more cp no palpit ex cigs - Current Medication List Current Medications: Active Medications Acetaminophen (Tylenol -) 650 mg PO Q4H PRN PRN Reason: FEVER OR PAIN Last Admin: 01/16/17 01:58 Dose: 650 mg Albuterol Sulfate (Ventolin 0.083% Nebulizer Soln -) 1 amp NEB Q6H PRN PRN Reason: SHORT OF BREATH/WHEEZING Albuterol/Ipratropium (Duoneb -) 1 amp NEB TIDR [facility] Last Admin: 01/16/17 06:38 Dose: 1 amp Allopurinol (Zyloprim -) 100 mg PO DAILY [facility] Last Admin: 01/15/17 10:13 Dose: 100 mg Ascorbic Acid (Vitamin C -) 1,000 mg PO DAILY [facility] Last Admin: 01/15/17 10:13 Dose: 1,000 mg Atorvastatin Calcium (Lipitor -) 40 mg PO HS [facility] Last Admin: 01/15/17 21:48 Dose: 40 mg Azithromycin (Zithromax -) 250 mg PO DAILY [facility] Last Admin: 01/15/17 12:10 Dose: 250 mg Bupropion HCl (Wellbutrin -) 75 mg PO DAILY [facility] Last Admin: 01/15/17 10:13 Dose: 75 mg Carvedilol (Coreg -) 6.25 mg PO BID [facility] Last Admin: 01/15/17 21:47 Dose: 6.25 mg Cholecalciferol (Vitamin D3 -) 1,000 unit PO DAILY [facility] Last Admin: 01/15/17 10:12 Dose: 1,000 unit Clopidogrel Bisulfate (Plavix -) 75 mg PO DAILY [facility] Last Admin: 01/15/17 10:12 Dose: 75 mg Docusate Sodium (Colace -) 100 mg PO BID [facility] Last Admin: 01/15/17 21:48 Dose: 100 mg Ferrous Sulfate (Feosol -) 325 mg PO Q2D [facility] Last Admin: 01/15/17 10:13 Dose: 325 mg Milrinone Lactate/Dextrose (Milrinone 20mg/100ml Ivpb -) 100 mls @ 9.573 mls/ hr IVPB TITR [facility] PRN Reason: 0.35 MCG/KG/MIN Last Admin: 01/15/17 17:04 Dose: Not Given Insulin Aspart (Novolog Vial Sliding Scale -) 1 vial SQ ACHS [facility] PRN Reason: Protocol Last Admin: 01/16/17 06:00 Dose: 1 units Multivitamins/Minerals/Vitamin C (Tab-A-Vit -) 1 tab PO DAILY [facility] Last Admin: 01/15/17 10:13 Dose: 1 tab Potassium Chloride (K-Dur -) 20 meq PO TID [facility] Last Admin: 01/16/17 05:59 Dose: 20 meq Ranitidine HCl (Zantac -) 75 mg PO DAILY [facility] Last Admin: 01/15/17 10:13 Dose: 75 mg Torsemide (Demadex -) 40 mg PO BID@0600,1400 [facility] Last Admin: 01/16/17 05:59 Dose: 40 mg Warfarin Sodium (Coumadin -) 4 mg PO DAILY@1800 [facility] Last Admin: 01/15/17 17:07 Dose: 4 mg - Objective Vital Signs: Vital Signs Temperature 98.5 F 01/16/17 05:38 Pulse Rate 86 01/16/17 05:38 Respiratory Rate 210 H 01/16/17 05:38 Blood Pressure 117/67 01/16/17 05:38 O2 Sat by Pulse Oximetry (%) 96 01/15/17 21:00 Constitutional: Yes: No Distress, Calm Eyes: No: Sclera Icterus HENT: No: Nasal Congestion Cardiovascular: Yes: Regular Rate and Rhythm, JVD (++), S1, S2, Other (PMI non diplaced). No: Gallop, Murmur Respiratory: Yes: Wheezes. No: Accessory Muscle Use, Rales Gastrointestinal: Yes: Normal Bowel Sounds, Soft. No: Tenderness Musculoskeletal: Yes: Other (No kyphosis) Extremities: No: Cold Edema: No Integumentary: No: Jaundice Neurological: Yes: Alert, Oriented (x3) Psychiatric: No: Agitated Labs: CBC, BMP 01/16/17 05:40 01/16/17 05:40 INR, PTT INR 3.14 (0.82-1.09) H 01/16/17 05:40 - ....Imaging EKG: Other (tele: NSR, V-paced) Assessment/Plan a/p: 76 year old man with PMH of IDDM, COPD (O2 dependant) HTN, HLD, Afib (on coumadin), CAD s/p PCIs, end stage CHF with ICD placement (on milrinone pump), PVD, BPH here with sob, cp, RODRIGUEZ. sob, copd: -here about 1 mo ago with pulm process -recently as outpt ongoing cough/sob over his baseline, despite at his longstanding dry wt and appeared clinically euvolemic--saw dr maddox who incr'd home O2 flow rate (for hypoxia noted in office) and tried change of inhalers -plan was empiric incr in torsemide dose if no improvement -now back with incr sob--severe episode on 01/13 in pm; associated atypical chest discomfort as below -? bronchitis -has had no signs vol overload, cxr with chronic findings, bnp at baseline (2K- 5K), wt at dry wt -will plan empiric trial of incr po torsemide on discharge and outpt f/u with me cp: -atypical features ("like a swirl" sensation in center of chest, no radiation) -resolved and no recurrence here -trop WNL x 1 on DOA--rpt now ordered -ECG BiV-paced -if trop negative, he does not require inpatient evaluation--will consider outpt stress testing if his chronic sx (incr'd sob over baseline) does not respond to changes in inhalers for copd or incr diuretics chronic end stage systolic heart failure s/p ICD, on home milrinone infusion: - vol status seems stable (as above), home regimen = torsemide 40 po bid - worsened sob over baseline = progressive copd vs chf - will give 2 wks empiric trial of incr'd torsemide at home: 80mg am, 40mg pm - should have repeat bun/creat later this week (3-5 days) on this regimen - should see me 2 wks after discharge - cont milrinone at patient's home maintenance dose (on chronic infusion destination therapy)--0.35 mcg/kg/min. - cont home coreg (doubt causing bronchospasm--will d/w dr maddox ? rpt pft's) - recent office icd check with stable function afib - currently rate controlled on coreg - cont coumadin per INR PVD - con't AC, statin. CAD s/p PCIs - No anginal symptoms, no signs acs. Con't home ac, atorvastatin, coreg HTN: controlled on coreg HLD: con't statin. CKD - at baseline renal fxn OK FOR DISCHARGE FROM CV P.O.V. IF TROPONIN COMES BACK NEGATIVE (ORDERED); PULM TO SEE LATER TODAY--IF PT TO STAY IN HOSP, NO NEED FOR ONGOING TELEMETRY MONITORING
[2017-01-16] MEDS: DOCUSATE SODIUM 100 MG CAPSULE (FP) PO SCH ×2 (09:56→23:12)
[2017-01-16] MEDS: ASCORBIC ACID 500 MG TABLET (FP) PO SCH (09:56)
[2017-01-16] MEDS: MULTIVITAMINS (DAILY MVI) TABLET (FP) PO SCH (09:56)
[2017-01-16] MEDS: RANITIDINE HCL 150 MG TABLET (FP) PO SCH (09:57)
[2017-01-16] MEDS: CLOPIDOGREL BISULFATE 75 MG TABLET (FP) PO SCH (09:57)
[2017-01-16] MEDS: CARVEDILOL 6.25 MG TABLET (FP) PO SCH ×2 (09:58→23:12)
[2017-01-16] MEDS: CHOLECALCIFEROL (VITAMIN D3) 400 UNIT TABLET (FP) PO SCH (09:58)
[2017-01-16] MEDS: ALLOPURINOL 100 MG TABLET (FP) PO SCH (09:59)
[2017-01-16] MEDS: AZITHROMYCIN 250 MG TABLET (FP) PO SCH (09:59)
[2017-01-16] MEDS: buPROPion HCL 75 MG TABLET PO SCH (10:02)
[2017-01-16] MEDS ORDERED: INSULIN (NOVOLOG) ASPART 100 UNITS/ML 10ML VIAL ONE ×2 (11:56→23:19)
[2017-01-16 12:09] LABS: TROPONIN I 0.03 ng/ml (0.00-0.05)
--- NOTE | 2017-01-16 12:59 | PN ---
Progress Note (short form) - Note Progress Note: PULMONARY CONSULTATION DICTATED 01/11/17 IMP ACUTE ON CHRONIC HYPOXEMIC RESPIRATORY FAILURE STABLE COPD O2 DEPENDENT CHF S/P ICD ASHD S/P CABG AFIB HTN PULMONARY HTN DM CKD PLAN CONTINUE INHALED BRONCHODILATORS NASAL O2 TO MAINTAIN O2 SAT 90% DIURETICS PER CARDIOLOGY MONITOR WTS DR MONTGOMERY Problem List - Problems (1) CHF (congestive heart failure) Code(s): I50.9 - HEART FAILURE, UNSPECIFIED Qualifiers: Congestive heart failure type: systolic (2) Chest pain Code(s): R07.9 - CHEST PAIN, UNSPECIFIED (3) AICD (automatic cardioverter/defibrillator) present Code(s): Z95.810 - PRESENCE OF AUTOMATIC (IMPLANTABLE) CARDIAC DEFIBRILLATOR (4) Acute and chronic respiratory failure ([id number]) Code(s): J96.20 - ACUTE AND CHR RESP FAILURE, UNSP W HYPOXIA OR HYPERCAPNIA Qualifiers: Respiratory failure complication: hypoxia Qualified Code(s): J96.21 - Acute and chronic respiratory failure with hypoxia (5) Acute on chronic renal insufficiency Code(s): N28.9 - DISORDER OF KIDNEY AND URETER, UNSPECIFIED N18.9 - CHRONIC KIDNEY DISEASE, UNSPECIFIED (6) Atrial fibrillation Code(s): I48.91 - UNSPECIFIED ATRIAL FIBRILLATION Qualifiers: Atrial fibrillation type: chronic Qualified Code(s): I48.2 - Chronic atrial fibrillation (7) CAD (coronary artery disease) Code(s): I25.10 - ATHSCL HEART DISEASE OF [place] CORONARY ARTERY W/O ANG PCTRS (8) COPD (chronic obstructive pulmonary disease) Code(s): J44.9 - CHRONIC OBSTRUCTIVE PULMONARY DISEASE, UNSPECIFIED Qualifiers : COPD type: COPD with acute exacerbation Qualified Code(s): J44.1 - Chronic obstructive pulmonary disease with (acute) exacerbation (9) Cardiomyopathy Code(s): I42.9 - CARDIOMYOPATHY, UNSPECIFIED (10) Diabetes mellitus, insulin dependent (IDDM), uncontrolled Code(s): E10.65 - TYPE 1 DIABETES MELLITUS WITH HYPERGLYCEMIA
[2017-01-16] MEDS ORDERED: TORSEMIDE 20 MG TABLET (FP) PO SCH (14:00)
--- NOTE | 2017-01-16 14:21 | DS ---
Physical Examination Vital Signs: Vital Signs Temperature 97.3 F L 01/16/17 10:00 Pulse Rate 76 01/16/17 10:00 Respiratory Rate 20 01/16/17 10:00 Blood Pressure 105/57 01/16/17 10:00 O2 Sat by Pulse Oximetry (%) 94 L 01/16/17 09:00 Constitutional: Yes: Well Nourished, No Distress, Calm Cardiovascular: Yes: Regular Rate and Rhythm. No: Gallop, Murmur, Rub Respiratory: Yes: Regular, CTA Bilaterally, On Nasal O2. No: Rales, Rhonchi, Wheezes Gastrointestinal: Yes: Normal Bowel Sounds, Soft. No: Distention, Tenderness Extremities: Yes: WNL Edema: Yes Edema: LLE: Trace, RLE: Trace Labs: CBC, BMP 01/16/17 05:40 01/16/17 05:40 Discharge Summary Reason For Visit: CHF, CHEST PAIN, ACUTE KIDNEY INJURY Current Active Problems Acute kidney injury (Acute) CHF (congestive heart failure) (Acute) Chest pain (Acute) Diabetes (Acute) Hospital Course: (1) Acute and chronic respiratory failure ([id number]-hqwiagp) Code(s): J96.20 - ACUTE AND CHR RESP FAILURE, UNSP W HYPOXIA OR HYPERCAPNIA Qualifiers: Respiratory failure complication: hypoxia Qualified Code(s): J96.21 - Acute and chronic respiratory failure with hypoxia (2) Chest pain Code(s): R07.9 - CHEST PAIN, UNSPECIFIED (3) CHF (congestive heart failure), acute on chronic end stage Code(s): I50.9 - HEART FAILURE, UNSPECIFIED Qualifiers: Congestive heart failure type: systolic (4) CAD (coronary artery disease) Code(s): I25.10 - ATHSCL HEART DISEASE OF [place] CORONARY ARTERY W/O ANG PCTRS (5) CKD (chronic kidney disease) Code(s): N18.9 - CHRONIC KIDNEY DISEASE, UNSPECIFIED Qualifiers: Chronic kidney disease stage: stage 4 (severe) Qualified Code(s): N18.4 - Chronic kidney disease, stage 4 (severe) (6) COPD (chronic obstructive pulmonary disease) Code(s): J44.9 - CHRONIC OBSTRUCTIVE PULMONARY DISEASE, UNSPECIFIED Qualifiers : COPD type: COPD with acute exacerbation Qualified Code(s): J44.1 - Chronic obstructive pulmonary disease with (acute) exacerbation (7) Diabetes Code(s): E11.9 - TYPE 2 DIABETES MELLITUS WITHOUT COMPLICATIONS Qualifiers: Diabetes mellitus type: type 2 Diabetes mellitus complication status: with kidney complications Diabetes mellitus complication detail: with chronic kidney disease Diabetes mellitus senior living insulin use: with senior living use Chronic kidney disease stage: stage 4 (severe) Qualified Code(s): E11.22 - Type 2 diabetes mellitus with diabetic chronic kidney disease ; N18.4 - Chronic kidney disease, stage 4 (severe); Z79.4 - intermediate frame tender (current) use of insulin Mr Perez is a pleasant 76 year old male who came in with SOB secondary to both CHF and COPD. He was admitted to the hospital. He was seen by cardiology and his torsemide was increased. He diuresed well. He was treated for COPD exacerbation, he did not require steroids. He was continued on his milrinone gtt while here. Currently he is improved and safe for discharge home. 31 minutes spent in preparation of this discharge Condition: Good - Instructions Diet, Activity, Other Instructions: resume previous diet and activity. BMP on . Follow up with Dr Garner in 2 weeks. Referrals: Miguel Valle MD [Staff Physician] - Khang Lopez MD [Primary Care Provider] - Nash Garner MD [Staff Physician] - Disposition: HOME - Home Medications Comprehensive Discharge Medication List: Ambulatory Orders Allopurinol [Zyloprim -] 100 mg PO DAILY 09/10/15 Atorvastatin Ca [Lipitor] 40 mg PO HS 09/10/15 Carvedilol 6.25 mg PO BID 09/10/15 Docusate Sodium [Colace -] 100 mg PO BID 09/10/15 Insulin NPL/Insulin Lispro [Humalog Mix 75-25 Vial] 0 unit SQ PRN 09/10/15 Milrinone Lactate/D5w [Milrinone 0.2 mg/ml in D5w] 0 mg IV DAILY 09/10/15 Ranitidine [Zantac -] 75 mg PO DAILY 09/10/15 Albuterol 0.083% Nebulizer [place] [Ventolin 0.083% Nebulizer Soln -] 1 amp NEB Q6H PRN #120 amp 09/14/15 Ferrous Sulfate [Feosol] 325 mg PO Q48H ud 04/23/16 Potassium Chloride [K-Dur -] 20 meq PO TID #90 tablet.er 04/23/16 Warfarin Na [Coumadin -] 4 mg PO DAILY@1800 09/06/16 Bupropion HCl [Wellbutrin -] 75 mg DAILY 09/08/16 Ascorbic Acid [Vitamin C -] 1,000 mg PO DAILY 11/24/16 Cholecalciferol (Vitamin D3) [Vitamin D -] 1,000 unit PO DAILY 11/24/16 Clopidogrel Bisulfate [Plavix -] 75 mg PO DAILY 11/24/16 Multivitamin [Poly-Vitamin] 1 each PO DAILY 11/24/16 Torsemide [Demadex -] 40 mg PO HS #30 tablet 01/16/17 Torsemide [Demadex -] 80 mg PO DAILY@0600 #30 tablet 01/16/17
--- NOTE | 2017-01-16 14:43 | PN ---
Progress Note, Physician Chief Complaint: Mr Perez said he was no longer short of breath, but noted he was short of breath with minimal exertion. Evaluated patient after walking and was short of breath. - Current Medication List Current Medications: Active Medications Acetaminophen (Tylenol -) 650 mg PO Q4H PRN PRN Reason: FEVER OR PAIN Last Admin: 01/16/17 01:58 Dose: 650 mg Albuterol Sulfate (Ventolin 0.083% Nebulizer Soln -) 1 amp NEB Q6H PRN PRN Reason: SHORT OF BREATH/WHEEZING Albuterol/Ipratropium (Duoneb -) 1 amp NEB TIDR [facility] Last Admin: 01/16/17 14:23 Dose: 1 amp Allopurinol (Zyloprim -) 100 mg PO DAILY [facility] Last Admin: 01/16/17 09:59 Dose: 100 mg Ascorbic Acid (Vitamin C -) 1,000 mg PO DAILY [facility] Last Admin: 01/16/17 09:56 Dose: 1,000 mg Atorvastatin Calcium (Lipitor -) 40 mg PO HS [facility] Last Admin: 01/15/17 21:48 Dose: 40 mg Azithromycin (Zithromax -) 250 mg PO DAILY [facility] Last Admin: 01/16/17 09:59 Dose: 250 mg Bupropion HCl (Wellbutrin -) 75 mg PO DAILY [facility] Last Admin: 01/16/17 10:02 Dose: 75 mg Carvedilol (Coreg -) 6.25 mg PO BID [facility] Last Admin: 01/16/17 09:58 Dose: 6.25 mg Cholecalciferol (Vitamin D3 -) 1,000 unit PO DAILY [facility] Last Admin: 01/16/17 09:58 Dose: 1,000 unit Clopidogrel Bisulfate (Plavix -) 75 mg PO DAILY [facility] Last Admin: 01/16/17 09:57 Dose: 75 mg Docusate Sodium (Colace -) 100 mg PO BID [facility] Last Admin: 01/16/17 09:56 Dose: 100 mg Ferrous Sulfate (Feosol -) 325 mg PO Q2D [facility] Last Admin: 01/15/17 10:13 Dose: 325 mg Furosemide (Lasix Injection -) 80 mg IVPB BID@0600,1400 [facility] Milrinone Lactate/Dextrose (Milrinone 20mg/100ml Ivpb -) 100 mls @ 9.573 mls/ hr IVPB TITR [facility] PRN Reason: 0.35 MCG/KG/MIN Last Admin: 01/16/17 07:00 Dose: 9.577 mls/hr Insulin Aspart (Novolog Vial Sliding Scale -) 1 vial SQ ACHS [facility] PRN Reason: Protocol Last Admin: 01/16/17 11:59 Dose: 5 units Multivitamins/Minerals/Vitamin C (Tab-A-Vit -) 1 tab PO DAILY [facility] Last Admin: 01/16/17 09:56 Dose: 1 tab Potassium Chloride (K-Dur -) 20 meq PO TID [facility] Last Admin: 01/16/17 14:28 Dose: 20 meq Ranitidine HCl (Zantac -) 75 mg PO DAILY [facility] Last Admin: 01/16/17 09:57 Dose: 75 mg Warfarin Sodium (Coumadin -) 4 mg PO DAILY@1800 [facility] Last Admin: 01/15/17 17:07 Dose: 4 mg - Objective Vital Signs: Vital Signs Temperature 97.9 F 01/16/17 14:00 Pulse Rate 75 01/16/17 14:00 Respiratory Rate 20 01/16/17 14:00 Blood Pressure 106/61 01/16/17 14:00 O2 Sat by Pulse Oximetry (%) 94 L 01/16/17 09:00 Constitutional: Yes: Well Nourished, No Distress, Calm Cardiovascular: Yes: Regular Rate and Rhythm. No: Gallop, Murmur, Rub Respiratory: Yes: On Nasal O2, Rhonchi, Tachypnea (slight). No: Rales, Wheezes Gastrointestinal: Yes: Normal Bowel Sounds, Soft. No: Distention, Tenderness Extremities: Yes: WNL Edema: Yes Edema: LLE: Trace, RLE: Trace Labs: CBC, BMP 01/16/17 05:40 01/16/17 05:40 INR, PTT INR 3.14 (0.82-1.09) H 01/16/17 05:40 Problem List - Problems (1) CHF (congestive heart failure) Code(s): I50.9 - HEART FAILURE, UNSPECIFIED Qualifiers: Congestive heart failure type: systolic Congestive heart failure chronicity: acute on chronic Qualified Code(s): I50.23 - Acute on chronic systolic (congestive) heart failure (2) Acute and chronic respiratory failure ([id number]) Code(s): J96.20 - ACUTE AND CHR RESP FAILURE, UNSP W HYPOXIA OR HYPERCAPNIA Qualifiers: Respiratory failure complication: hypoxia Qualified Code(s): J96.21 - Acute and chronic respiratory failure with hypoxia (3) Chest pain Code(s): R07.9 - CHEST PAIN, UNSPECIFIED (4) CAD (coronary artery disease) Code(s): I25.10 - ATHSCL HEART DISEASE OF [place] CORONARY ARTERY W/O ANG PCTRS (5) CKD (chronic kidney disease) Code(s): N18.9 - CHRONIC KIDNEY DISEASE, UNSPECIFIED Qualifiers: Chronic kidney disease stage: stage 4 (severe) Qualified Code(s): N18.4 - Chronic kidney disease, stage 4 (severe) (6) COPD (chronic obstructive pulmonary disease) Code(s): J44.9 - CHRONIC OBSTRUCTIVE PULMONARY DISEASE, UNSPECIFIED Qualifiers : COPD type: COPD with acute exacerbation Qualified Code(s): J44.1 - Chronic obstructive pulmonary disease with (acute) exacerbation (7) Diabetes Code(s): E11.9 - TYPE 2 DIABETES MELLITUS WITHOUT COMPLICATIONS Qualifiers: Diabetes mellitus type: type 2 Diabetes mellitus complication status: with kidney complications Diabetes mellitus complication detail: with chronic kidney disease Diabetes mellitus skilled nursing insulin use: with physician practice coordinator use Chronic kidney disease stage: stage 4 (severe) Qualified Code(s): E11.22 - Type 2 diabetes mellitus with diabetic chronic kidney disease ; N18.1 - Chronic kidney disease, stage 1; 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 Assessment/Plan (1) Acute and chronic respiratory failure ([id number]) Assessment/Plan: -now with dyspnea on exertion -appears more fluid overloaded -case d/w Dr Valle and Dr Garner -diuresis with IV lasix and daily weights Code(s): J96.20 - ACUTE AND CHR RESP FAILURE, UNSP W HYPOXIA OR HYPERCAPNIA Qualifiers: Respiratory failure complication: hypoxia Qualified Code(s): J96.21 - Acute and chronic respiratory failure with hypoxia (2) Chest pain Assessment/Plan: -resolved Code(s): R07.9 - CHEST PAIN, UNSPECIFIED (3) CHF (congestive heart failure) Assessment/Plan: -continue milrinone gtt -diuresis as above Code(s): I50.9 - HEART FAILURE, UNSPECIFIED Qualifiers: Congestive heart failure type: systolic (4) CAD (coronary artery disease) Assessment/Plan: -stable -continue home regimen Code(s): I25.10 - ATHSCL HEART DISEASE OF [place] CORONARY ARTERY W/O ANG PCTRS (5) CKD (chronic kidney disease) Assessment/Plan: -at baseline -continue to monitor Code(s): N18.9 - CHRONIC KIDNEY DISEASE, UNSPECIFIED Qualifiers: Chronic kidney disease stage: stage 4 (severe) Qualified Code(s): N18.4 - Chronic kidney disease, stage 4 (severe) (6) COPD (chronic obstructive pulmonary disease) Assessment/Plan: -as above Code(s): J44.9 - CHRONIC OBSTRUCTIVE PULMONARY DISEASE, UNSPECIFIED Qualifiers : COPD type: COPD with acute exacerbation Qualified Code(s): J44.1 - Chronic obstructive pulmonary disease with (acute) exacerbation (7) Diabetes Assessment/Plan: -diabetic diet -FSBS and SSI Code(s): E11.9 - TYPE 2 DIABETES MELLITUS WITHOUT COMPLICATIONS Qualifiers: Diabetes mellitus type: type 2 Diabetes mellitus complication status: with kidney complications Diabetes mellitus complication detail: with chronic kidney disease Diabetes mellitus physician practice coordinator insulin use: with skilled nursing use Chronic kidney disease stage: stage 4 (severe) Qualified Code(s): E11.22 - Type 2 diabetes mellitus with diabetic chronic kidney disease ; N18.4 - Chronic kidney disease, stage 4 (severe); 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
[2017-01-16] MEDS: FUROSEMIDE 100 MG/10 ML INJECTABLE VIAL IVPB SCH (16:43)
--- NOTE | 2017-01-16 19:46 | CONS ---
DATE OF CONSULTATION: 01/16/2017 PULMONARY CONSULTATION REFERRING PHYSICIAN: Nima Pritchard M.D. HISTORY OF PRESENT ILLNESS: The patient is a 76-year-old male known to me from previous hospitalization and lost to followup with past medical history of hypertension, CHF, cardiomyopathy, ASHD, atrial fibrillation status post MS, pulmonary hypertension status post AICD, COPD on O2, chronic kidney disease, BPH, diabetes, admitted to [facility] on January 13 with complaint of increasing shortness of breath. Patient apparently was doing well until 11 o'clock the evening prior to admission when he started feeling increasing shortness of breath. He had increasing orthopnea, denied any complaint of chest pain. He also had a cough which was productive of thick white sputum. Denied any fevers or chills. He did complain of chest tightness, retrosternally radiating to the head. He states he had nausea, but no vomiting. He denied any syncopal episodes. Also noticed to have increasing lower extremity edema. On admission, he was felt to have possible mild COPD, CHF. He was continued on drip and continued on inhaled bronchodilators as well as diuretics. On hospitalization, the patient continued to improve with the above measures. He has history of tobacco use, quit years ago. There is no history of occupational exposure to chemicals or fumes. PAST MEDICAL HISTORY: Again includes ASHD status post MS, cardiomyopathy status post ICD, history of atrial fibrillation, hypertension, pulmonary hypertension, hyperlipidemia, CHF, COPD O2 dependent, chronic kidney disease, BPH and diabetes. PAST SURGICAL HISTORY: AICD and CABG and hernia repair. REVIEW OF SYSTEMS: Dyspnea on exertion. No chest pain. No palpitations. No cough. No hemoptysis. No wheezing. No abdominal pain. Positive mild lower extremity edema. CURRENT MEDICATIONS: Include Tylenol, Zithromax, Coumadin, Wellbutrin, Zyloprim, albuterol, DuoNeb, Coreg, , Colace, Zantac, Lipitor, torsemide b.i.d., vitamin C, Plavix, K-Dur, vitamin D3. PHYSICAL EXAMINATION: General: The patient is a well-developed, well-nourished male, awake, alert, in no acute distress. Vital signs: He is currently afebrile. Blood pressure 105/57, respiratory rate 20, and O2 saturation is 94% on 3 L, heart rate is 76. HEENT: Head is normocephalic, atraumatic. Neck: Supple. Heart: Irregularly irregular. Normal S1, S2. Chest: Clear. Abdomen: Soft. Bowel sounds positive. Extremities: Trace bilateral lower extremity edema. LABORATORY: WBC: BUN is 58, creatinine 2.0. BNP was 2012 on admission. INR is 3.14. WBC 11.6, hemoglobin 11.0, hematocrit 37.6, platelet count 172,000. Chest x-ray shows cardiomegaly, mild pulmonary vascular congestion. IMPRESSION: [id number] hypoxemic respiratory failure likely secondary to chronic obstructive pulmonary disease exacerbation. 2. Cardiomyopathy with congestive heart failure, currently stable. 3. Atrial fibrillation. 4. Atherosclerotic heart disease status post myocardial infarction, status post implantable cardioverter defibrillator, status post coronary artery bypass graft. 5. Hypertension. 6. Pulmonary hypertension. Chronic obstructive pulmonary disease, oxygen dependent. PLAN: Continue inhaled bronchodilators, supplemental O2, diuretics. Chest x-ray as outpatient. Daily weights. Monitor weight closely. Thank you, will follow closely with you. BRADFORD MONTGOMERY M.D. [id number]
[2017-01-16] MEDS: ATORVASTATIN CA 40 MG TABLET (FP) PO SCH (23:12)
[2017-01-17] MEDS ORDERED: TORSEMIDE 20 MG TABLET (FP) PO SCH (06:00)
[2017-01-17] MEDS: FUROSEMIDE 100 MG/10 ML INJECTABLE VIAL IVPB SCH ×2 (06:00→13:15)
[2017-01-17] MEDS: INSULIN SLIDING SCALE (NOVOLOG) 1 VIAL SQ SCH ×4 (06:01→21:03)
[2017-01-17] MEDS: POTASSIUM CHLORIDE TABS 20 MEQ TABLET.ER (FP) PO SCH ×3 (06:01→21:03)
[2017-01-17] MEDS: MILRINONE 20MG/100ML IVPB - 100 ML IVPB SCH ×3 (06:09→17:42)
[2017-01-17] MEDS: ALBUTEROL SO4 2.5/IPRATROPIUM 0.5 INH SOL 3 ML VIAL.NEB. NEB SCH ×3 (06:30→22:45)
[2017-01-17 07:06] LABS: BASOPHIL 0.4 % (0-2.0); EOSINOPHIL 2.3 % (0-4.5); MCH 26.2 pg (25.7-33.7); MEAN CELL VOLUME 81.8 fl (80-96); MEAN PLT VOLUME 8.8 fl (7.5-11.1); NEUTROPHILS 71.1 % (42.8-82.8); PLATELET COUNT 163 K/MM3 (134-434); RDW 18.6 % (11.9-15.9); WHITE BLOOD COUNT 8.5 K/mm3 (4.0-10.0)
[2017-01-17] MEDS ORDERED: PT OWN MED DRAWER 7, Y5N ONE ×2 (07:09→10:21)
[2017-01-17 07:41] LABS: INR 2.87 (0.82-1.09); PROTHROMBIN TIME (PATIENT) 32.3 SEC (9.98-11.88)
[2017-01-17 08:29] LABS: CALCIUM 8.5 mg/dL (8.5-10.1); COCKROFT - GAULT 45.21; CREATININE 1.8 mg/dL (0.7-1.3); MAGNESIUM 2.7 mg/dL (1.8-2.4); PHOSPHOROUS 3.1 mg/dL (2.5-4.9)
[2017-01-17] MEDS: CLOPIDOGREL BISULFATE 75 MG TABLET (FP) PO SCH (10:27)
[2017-01-17] MEDS: MULTIVITAMINS (DAILY MVI) TABLET (FP) PO SCH (10:27)
[2017-01-17] MEDS: CARVEDILOL 6.25 MG TABLET (FP) PO SCH ×2 (10:27→21:03)
[2017-01-17] MEDS: RANITIDINE HCL 150 MG TABLET (FP) PO SCH (10:28)
[2017-01-17] MEDS: AZITHROMYCIN 250 MG TABLET (FP) PO SCH (10:28)
[2017-01-17] MEDS: DOCUSATE SODIUM 100 MG CAPSULE (FP) PO SCH ×2 (10:29→21:03)
[2017-01-17] MEDS: ASCORBIC ACID 500 MG TABLET (FP) PO SCH (10:29)
[2017-01-17] MEDS: ALLOPURINOL 100 MG TABLET (FP) PO SCH (10:30)
[2017-01-17] MEDS: FERROUS SO4 325 MG TABLET (FP) PO SCH (10:30)
[2017-01-17] MEDS: CHOLECALCIFEROL (VITAMIN D3) 400 UNIT TABLET (FP) PO SCH (10:30)
[2017-01-17] MEDS: buPROPion HCL 75 MG TABLET PO SCH (10:31)
--- NOTE | 2017-01-17 11:16 | PN ---
Progress Note (short form) - Note Progress Note: Chief Complaint: sob History of Present Illness: d/c delayed yesterday due to persistent jose. restarted on IV lasix, states improvement in abd swelling and sob. no orthopnea no leg swelling no more cp no palpit ex cigs Current Medications Acetaminophen (Tylenol -) 650 mg PO Q4H PRN PRN Reason: FEVER OR PAIN Last Admin: 01/16/17 01:58 Dose: 650 mg Albuterol Sulfate (Ventolin 0.083% Nebulizer Soln -) 1 amp NEB Q6H PRN PRN Reason: SHORT OF BREATH/WHEEZING Last Admin: 01/17/17 02:20 Dose: 1 amp Albuterol/Ipratropium (Duoneb -) 1 amp NEB TIDR [facility] Last Admin: 01/17/17 06:30 Dose: 1 amp Allopurinol (Zyloprim -) 100 mg PO DAILY [facility] Last Admin: 01/17/17 10:30 Dose: 100 mg Ascorbic Acid (Vitamin C -) 1,000 mg PO DAILY [facility] Last Admin: 01/17/17 10:29 Dose: 1,000 mg Atorvastatin Calcium (Lipitor -) 40 mg PO HS [facility] Last Admin: 01/16/17 23:12 Dose: 40 mg Azithromycin (Zithromax -) 250 mg PO DAILY [facility] Last Admin: 01/17/17 10:28 Dose: 250 mg Bupropion HCl (Wellbutrin -) 75 mg PO DAILY [facility] Last Admin: 01/17/17 10:31 Dose: 75 mg Carvedilol (Coreg -) 6.25 mg PO BID [facility] Last Admin: 01/17/17 10:27 Dose: 6.25 mg Cholecalciferol (Vitamin D3 -) 1,000 unit PO DAILY [facility] Last Admin: 01/17/17 10:30 Dose: 1,000 unit Clopidogrel Bisulfate (Plavix -) 75 mg PO DAILY [facility] Last Admin: 01/17/17 10:27 Dose: 75 mg Docusate Sodium (Colace -) 100 mg PO BID [facility] Last Admin: 01/17/17 10:29 Dose: 100 mg Ferrous Sulfate (Feosol -) 325 mg PO Q2D [facility] Last Admin: 01/17/17 10:30 Dose: 325 mg Furosemide (Lasix Injection -) 80 mg IVPB BID@0600,1400 [facility] Last Admin: 01/17/17 06:00 Dose: 80 mg Milrinone Lactate/Dextrose (Milrinone 20mg/100ml Ivpb -) 100 mls @ 9.573 mls/ hr IVPB TITR [facility] PRN Reason: 0.35 MCG/KG/MIN Last Admin: 01/17/17 06:09 Dose: 9.5 mls/hr Insulin Aspart (Novolog Vial Sliding Scale -) 1 vial SQ ACHS [facility] PRN Reason: Protocol Last Admin: 01/17/17 06:01 Dose: 1 units Multivitamins/Minerals/Vitamin C (Tab-A-Vit -) 1 tab PO DAILY [facility] Last Admin: 01/17/17 10:27 Dose: 1 tab Potassium Chloride (K-Dur -) 20 meq PO TID [facility] Last Admin: 01/17/17 06:01 Dose: 20 meq Ranitidine HCl (Zantac -) 75 mg PO DAILY [facility] Last Admin: 01/17/17 10:28 Dose: 75 mg Warfarin Sodium (Coumadin -) 4 mg PO DAILY@1800 [facility] Last Admin: 01/15/17 17:07 Dose: 4 mg Vital Signs - 24 hr 01/16/17 01/16/17 01/16/17 14:00 17:53 22:00 Temperature 97.9 F 97.6 F 97.6 F Pulse Rate 75 75 76 Respiratory 20 18 20 Rate Blood Pressure 106/61 113/65 112/59 O2 Sat by Pulse 92 L Oximetry (%) 01/17/17 01/17/17 01/17/17 01:00 06:00 10:00 Temperature 97.6 F 97.8 F 97.5 F L Pulse Rate 74 76 75 Respiratory 18 18 20 Rate Blood Pressure 113/65 109/70 115/65 O2 Sat by Pulse Oximetry (%) Intake & Output 01/15/17 01/16/17 01/17/17 01/18/17 07:59 07:59 07:59 07:59 Intake Total 581.0 354 1078 Output Total 475 850 300 Balance 581.0 -121 228 -300 Weight 206 lb 2 oz 207 lb 208 lb 6 oz Constitutional: Yes: No Distress, Calm Eyes: No: Sclera Icterus HENT: No: Nasal Congestion Cardiovascular: Yes: Regular Rate and Rhythm, JVD (++), S1, S2, Other (PMI non diplaced). No: Gallop, Murmur Respiratory: Yes: Wheezes. No: Accessory Muscle Use, Rales Gastrointestinal: Yes: Normal Bowel Sounds, Soft. No: Tenderness Musculoskeletal: Yes: Other (No kyphosis) Extremities: No: Cold Edema: No Integumentary: No: Jaundice Neurological: Yes: Alert, Oriented (x3) Psychiatric: No: Agitated Labs: CBC, BMP 01/17/17 05:35 01/17/17 05:35 Laboratory Tests 11/26/16 11/27/16 11/29/16 06:07 06:02 05:35 INR 3.99 H 2.70 H BUN 72 H Creatinine 2.4 H Magnesium Total Bilirubin AST ALT Alkaline Phosphatase Creatine Kinase Troponin I Albumin 01/16/17 01/16/17 01/17/17 05:40 11:13 05:35 INR 2.87 H BUN Creatinine Magnesium Total Bilirubin 1.2 H D AST 21 ALT 18 Alkaline Phosphatase 164 H Creatine Kinase 51 Troponin I 0.03 Albumin 3.3 L 01/17/17 05:35 INR BUN Creatinine Magnesium 2.7 H Total Bilirubin AST ALT Alkaline Phosphatase Creatine Kinase Troponin I Albumin - ....Imaging EKG: Other (tele: NSR, V-paced) cxr 01/16: inc andi changes. Assessment/Plan a/p: 76 year old man with PMH of IDDM, COPD (O2 dependant) HTN, HLD, Afib (on coumadin), CAD s/p PCIs, end stage CHF with ICD placement (on milrinone pump), PVD, BPH here with sob, cp, RODRIGUEZ. sob, copd: -here about 1 mo ago with pulm process -recently as outpt ongoing cough/sob over his baseline, despite at his longstanding dry wt and appeared clinically euvolemic--saw dr maddox who incr'd home O2 flow rate (for hypoxia noted in office) and tried change of inhalers -plan was empiric incr in torsemide dose if no improvement -now back with incr sob--severe episode on 01/13 in pm; associated atypical chest discomfort as below -? bronchitis -has had no signs vol overload, cxr with chronic findings, bnp at baseline (2K- 5K), wt at dry wt -had plan empiric trial of incr po torsemide on discharge and outpt f/u with Dr. Garner - 01/16 persistent jose, cxr with increased andi changes. weight slightly up. started on lasix 80 mg IV bid. - 01/17: BMP stable, con't same. cp: -atypical features ("like a swirl" sensation in center of chest, no radiation) -resolved and no recurrence here -trop WNL x 1 on DOA--rpt 01/16 ordered negative -ECG BiV-paced -01/16 trop negative, he does not require inpatient evaluation--will consider outpt stress testing if his chronic sx (incr'd sob over baseline) does not respond to changes in inhalers for copd or incr diuretics chronic end stage systolic heart failure s/p ICD, on home milrinone infusion: - vol status seems stable (as above), home regimen = torsemide 40 po bid - worsened sob over baseline = progressive copd vs chf - will give 2 wks empiric trial of incr'd torsemide at home: 80mg am, 40mg pm - should have repeat bun/creat later this week (3-5 days) on this regimen - should see me 2 wks after discharge - cont milrinone at patient's home maintenance dose (on chronic infusion destination therapy)--0.35 mcg/kg/min. - cont home coreg (doubt causing bronchospasm--will d/w dr maddox ? rpt pft's) - recent office icd check with stable function - 01/16: discharge delayed due to persistent jose. CXR noted to have increased andi changes. weight slightly up. started on lasix 80 mg IV bid. - 01/17: con't milrinone, bid IV lasix with kcl supplements, milrinone, coreg. Not on arb, defer to Dr. Garner. afib - currently rate controlled on coreg - cont coumadin per INR PVD - con't AC, plavix, statin. CAD s/p PCIs - No anginal symptoms, no signs acs. Con't home ac, plavix, atorvastatin, coreg HTN: controlled on coreg HLD: con't statin. CKD - at baseline renal fxn
--- NOTE | 2017-01-17 11:33 | PN ---
Progress Note, Physician Chief Complaint: Mr Perez said he is feeling fine. Says his breathing is improved and he is not short of breath on exertion. However RN notes that he is still short of breath with minimal exertion. - Current Medication List Current Medications: Active Medications Acetaminophen (Tylenol -) 650 mg PO Q4H PRN PRN Reason: FEVER OR PAIN Last Admin: 01/16/17 01:58 Dose: 650 mg Albuterol Sulfate (Ventolin 0.083% Nebulizer Soln -) 1 amp NEB Q6H PRN PRN Reason: SHORT OF BREATH/WHEEZING Last Admin: 01/17/17 02:20 Dose: 1 amp Albuterol/Ipratropium (Duoneb -) 1 amp NEB TIDR [facility] Last Admin: 01/17/17 06:30 Dose: 1 amp Allopurinol (Zyloprim -) 100 mg PO DAILY [facility] Last Admin: 01/17/17 10:30 Dose: 100 mg Ascorbic Acid (Vitamin C -) 1,000 mg PO DAILY [facility] Last Admin: 01/17/17 10:29 Dose: 1,000 mg Atorvastatin Calcium (Lipitor -) 40 mg PO HS [facility] Last Admin: 01/16/17 23:12 Dose: 40 mg Azithromycin (Zithromax -) 250 mg PO DAILY [facility] Last Admin: 01/17/17 10:28 Dose: 250 mg Bupropion HCl (Wellbutrin -) 75 mg PO DAILY [facility] Last Admin: 01/17/17 10:31 Dose: 75 mg Carvedilol (Coreg -) 6.25 mg PO BID [facility] Last Admin: 01/17/17 10:27 Dose: 6.25 mg Cholecalciferol (Vitamin D3 -) 1,000 unit PO DAILY [facility] Last Admin: 01/17/17 10:30 Dose: 1,000 unit Clopidogrel Bisulfate (Plavix -) 75 mg PO DAILY [facility] Last Admin: 01/17/17 10:27 Dose: 75 mg Docusate Sodium (Colace -) 100 mg PO BID [facility] Last Admin: 01/17/17 10:29 Dose: 100 mg Ferrous Sulfate (Feosol -) 325 mg PO Q2D [facility] Last Admin: 01/17/17 10:30 Dose: 325 mg Furosemide (Lasix Injection -) 80 mg IVPB BID@0600,1400 [facility] Last Admin: 01/17/17 06:00 Dose: 80 mg Milrinone Lactate/Dextrose (Milrinone 20mg/100ml Ivpb -) 100 mls @ 9.573 mls/ hr IVPB TITR [facility] PRN Reason: 0.35 MCG/KG/MIN Last Admin: 01/17/17 06:09 Dose: 9.5 mls/hr Insulin Aspart (Novolog Vial Sliding Scale -) 1 vial SQ ACHS [facility] PRN Reason: Protocol Last Admin: 01/17/17 06:01 Dose: 1 units Multivitamins/Minerals/Vitamin C (Tab-A-Vit -) 1 tab PO DAILY [facility] Last Admin: 01/17/17 10:27 Dose: 1 tab Potassium Chloride (K-Dur -) 20 meq PO TID [facility] Last Admin: 01/17/17 06:01 Dose: 20 meq Ranitidine HCl (Zantac -) 75 mg PO DAILY [facility] Last Admin: 01/17/17 10:28 Dose: 75 mg Warfarin Sodium (Coumadin -) 4 mg PO DAILY@1800 [facility] Last Admin: 01/15/17 17:07 Dose: 4 mg - Objective Vital Signs: Vital Signs Temperature 97.5 F L 01/17/17 10:00 Pulse Rate 75 01/17/17 10:00 Respiratory Rate 20 01/17/17 10:00 Blood Pressure 115/65 01/17/17 10:00 O2 Sat by Pulse Oximetry (%) 92 L 01/16/17 22:00 Constitutional: Yes: No Distress, Calm Cardiovascular: Yes: Regular Rate and Rhythm. No: Gallop, Murmur, Rub Respiratory: Yes: Regular, On Nasal O2, Rhonchi. No: Rales, Wheezes Gastrointestinal: Yes: Normal Bowel Sounds, Soft. No: Distention, Tenderness Extremities: Yes: WNL Edema: Yes Edema: LLE: 1+, RLE: 1+ Labs: CBC, BMP 01/17/17 05:35 01/17/17 05:35 INR, PTT INR 2.87 (0.82-1.09) H 01/17/17 05:35 Problem List - Problems (1) CHF (congestive heart failure) Code(s): I50.9 - HEART FAILURE, UNSPECIFIED Qualifiers: Congestive heart failure type: systolic Congestive heart failure chronicity: acute on chronic Qualified Code(s): I50.23 - Acute on chronic systolic (congestive) heart failure (2) Acute and chronic respiratory failure ([id number]) Code(s): J96.20 - ACUTE AND CHR RESP FAILURE, UNSP W HYPOXIA OR HYPERCAPNIA Qualifiers: Respiratory failure complication: hypoxia Qualified Code(s): J96.21 - Acute and chronic respiratory failure with hypoxia (3) Chest pain Code(s): R07.9 - CHEST PAIN, UNSPECIFIED (4) CAD (coronary artery disease) Code(s): I25.10 - ATHSCL HEART DISEASE OF [place] CORONARY ARTERY W/O ANG PCTRS (5) CKD (chronic kidney disease) Code(s): N18.9 - CHRONIC KIDNEY DISEASE, UNSPECIFIED Qualifiers: Chronic kidney disease stage: stage 4 (severe) Qualified Code(s): N18.4 - Chronic kidney disease, stage 4 (severe) (6) COPD (chronic obstructive pulmonary disease) Code(s): J44.9 - CHRONIC OBSTRUCTIVE PULMONARY DISEASE, UNSPECIFIED Qualifiers : COPD type: COPD with acute exacerbation Qualified Code(s): J44.1 - Chronic obstructive pulmonary disease with (acute) exacerbation (7) Diabetes Code(s): E11.9 - TYPE 2 DIABETES MELLITUS WITHOUT COMPLICATIONS Qualifiers: Diabetes mellitus type: type 2 Diabetes mellitus complication status: with kidney complications Diabetes mellitus complication detail: with chronic kidney disease Diabetes mellitus nursing home insulin use: with hand embroiderer use Chronic kidney disease stage: stage 4 (severe) Qualified Code(s): E11.22 - Type 2 diabetes mellitus with diabetic chronic kidney disease ; N18.1 - Chronic kidney disease, stage 1; Z79.4 - senior living (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) 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 of insulin Assessment/Plan (1) Acute and chronic respiratory failure ([id number]) Assessment/Plan: -patient says feeling better, but still with FREIRE -continue IV lasix per cardiology Code(s): J96.20 - ACUTE AND CHR RESP FAILURE, UNSP W HYPOXIA OR HYPERCAPNIA Qualifiers: Respiratory failure complication: hypoxia Qualified Code(s): J96.21 - Acute and chronic respiratory failure with hypoxia (2) Chest pain Assessment/Plan: -resolved Code(s): R07.9 - CHEST PAIN, UNSPECIFIED (3) CHF (congestive heart failure) Assessment/Plan: -continue milrinone gtt -diuresing with lasix -cardiology to adjust as needed Code(s): I50.9 - HEART FAILURE, UNSPECIFIED Qualifiers: Congestive heart failure type: systolic (4) CAD (coronary artery disease) Assessment/Plan: -stable -continue home regimen Code(s): I25.10 - ATHSCL HEART DISEASE OF [place] CORONARY ARTERY W/O ANG PCTRS (5) CKD (chronic kidney disease) Assessment/Plan: -at baseline -continue to monitor Code(s): N18.9 - CHRONIC KIDNEY DISEASE, UNSPECIFIED Qualifiers: Chronic kidney disease stage: stage 4 (severe) Qualified Code(s): N18.4 - Chronic kidney disease, stage 4 (severe) (6) COPD (chronic obstructive pulmonary disease) Assessment/Plan: -continue current management -suspect SOB now secondary to CHF -pulmonary following Code(s): J44.9 - CHRONIC OBSTRUCTIVE PULMONARY DISEASE, UNSPECIFIED Qualifiers : COPD type: COPD with acute exacerbation Qualified Code(s): J44.1 - Chronic obstructive pulmonary disease with (acute) exacerbation (7) Diabetes Assessment/Plan: -diabetic diet -FSBS and SSI Code(s): E11.9 - TYPE 2 DIABETES MELLITUS WITHOUT COMPLICATIONS Qualifiers: Diabetes mellitus type: type 2 Diabetes mellitus complication status: with kidney complications Diabetes mellitus complication detail: with chronic kidney disease Diabetes mellitus hand embroiderer insulin use: with nursing home use Chronic kidney disease stage: stage 4 (severe) Qualified Code(s): E11.22 - Type 2 diabetes mellitus with diabetic chronic kidney disease ; N18.4 - Chronic kidney disease, stage 4 (severe); 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
--- NOTE | 2017-01-17 11:58 | PN ---
Progress Note (short form) - Note Progress Note: PULMONARY States breathing is improving. On milrinone gtt and IV lasix boluses. Denies chest pain. No cough or wheezing. Last Vital Signs Temp Pulse Resp BP Pulse Ox 97.5 F L 75 20 115/65 91 L 01/17/17 10:00 01/17/17 10:00 01/17/17 10:00 01/17/17 10:00 01/17/17 09:00 Intake & Output 01/14/17 01/15/17 01/16/17 01/17/17 23:59 23:59 23:59 23:59 Intake Total 624.5 306.5 928 264 Output Total 820 358 8784 Balance 624.5 31.5 728 -886 Weight 206 lb 206 lb 2 oz 207 lb 208 lb 6 oz Gen: NAD in chair Heart: RRR Lung: left base rhonchi Abd: soft, nontender Ext: no edema CBC, BMP 01/17/17 05:35 01/17/17 05:35 Active Medications Acetaminophen (Tylenol -) 650 mg PO Q4H PRN PRN Reason: FEVER OR PAIN Last Admin: 01/16/17 01:58 Dose: 650 mg Albuterol Sulfate (Ventolin 0.083% Nebulizer Soln -) 1 amp NEB Q6H PRN PRN Reason: SHORT OF BREATH/WHEEZING Last Admin: 01/17/17 02:20 Dose: 1 amp Albuterol/Ipratropium (Duoneb -) 1 amp NEB TIDR [facility] Last Admin: 01/17/17 06:30 Dose: 1 amp Allopurinol (Zyloprim -) 100 mg PO DAILY [facility] Last Admin: 01/17/17 10:30 Dose: 100 mg Ascorbic Acid (Vitamin C -) 1,000 mg PO DAILY [facility] Last Admin: 01/17/17 10:29 Dose: 1,000 mg Atorvastatin Calcium (Lipitor -) 40 mg PO HS [facility] Last Admin: 01/16/17 23:12 Dose: 40 mg Azithromycin (Zithromax -) 250 mg PO DAILY [facility] Last Admin: 01/17/17 10:28 Dose: 250 mg Bupropion HCl (Wellbutrin -) 75 mg PO DAILY [facility] Last Admin: 01/17/17 10:31 Dose: 75 mg Carvedilol (Coreg -) 6.25 mg PO BID [facility] Last Admin: 01/17/17 10:27 Dose: 6.25 mg Cholecalciferol (Vitamin D3 -) 1,000 unit PO DAILY [facility] Last Admin: 01/17/17 10:30 Dose: 1,000 unit Clopidogrel Bisulfate (Plavix -) 75 mg PO DAILY [facility] Last Admin: 01/17/17 10:27 Dose: 75 mg Docusate Sodium (Colace -) 100 mg PO BID [facility] Last Admin: 01/17/17 10:29 Dose: 100 mg Ferrous Sulfate (Feosol -) 325 mg PO Q2D [facility] Last Admin: 01/17/17 10:30 Dose: 325 mg Furosemide (Lasix Injection -) 80 mg IVPB BID@0600,1400 [facility] Last Admin: 01/17/17 06:00 Dose: 80 mg Milrinone Lactate/Dextrose (Milrinone 20mg/100ml Ivpb -) 100 mls @ 9.573 mls/ hr IVPB TITR [facility] PRN Reason: 0.35 MCG/KG/MIN Last Admin: 01/17/17 06:09 Dose: 9.5 mls/hr Insulin Aspart (Novolog Vial Sliding Scale -) 1 vial SQ ACHS [facility] PRN Reason: Protocol Last Admin: 01/17/17 06:01 Dose: 1 units Multivitamins/Minerals/Vitamin C (Tab-A-Vit -) 1 tab PO DAILY [facility] Last Admin: 01/17/17 10:27 Dose: 1 tab Potassium Chloride (K-Dur -) 20 meq PO TID [facility] Last Admin: 01/17/17 06:01 Dose: 20 meq Ranitidine HCl (Zantac -) 75 mg PO DAILY [facility] Last Admin: 01/17/17 10:28 Dose: 75 mg Warfarin Sodium (Coumadin -) 4 mg PO DAILY@1800 [facility] Last Admin: 01/15/17 17:07 Dose: 4 mg A/P Acute on Chronic Systolic Heart Failure s/p ICD COPD Chronic Hypoxic Respiratory Failure CAD s/p CABG Atrial Fibrillation Pulmonary HTN HTN DM CKD - continue lasix with milrinone gtt - monitor urine output, creatinine - daily weights, I/Os - keep net negative balance - rate controlled - continue anticoagulation
[2017-01-17] MEDS: WARFARIN NA 2 MG TABLET (UD) PO SCH (18:00)
[2017-01-17] MEDS ORDERED: INSULIN (NOVOLOG) ASPART 100 UNITS/ML 10ML VIAL ONE (20:41)
[2017-01-17] MEDS: ATORVASTATIN CA 40 MG TABLET (FP) PO SCH (21:03)
[2017-01-18] MEDS ORDERED: PT OWN MED DRAWER 7, Y5N ONE ×3 (00:54→22:30)
[2017-01-18] MEDS: MILRINONE 20MG/100ML IVPB - 100 ML IVPB SCH ×4 (00:56→23:40)
[2017-01-18] MEDS: POTASSIUM CHLORIDE TABS 20 MEQ TABLET.ER (FP) PO SCH ×3 (06:09→22:10)
[2017-01-18] MEDS: FUROSEMIDE 100 MG/10 ML INJECTABLE VIAL IVPB SCH ×2 (06:09→13:43)
[2017-01-18] MEDS: INSULIN SLIDING SCALE (NOVOLOG) 1 VIAL SQ SCH ×4 (06:10→22:10)
[2017-01-18] MEDS: ALBUTEROL SO4 2.5/IPRATROPIUM 0.5 INH SOL 3 ML VIAL.NEB. NEB SCH ×3 (06:28→22:20)
[2017-01-18 08:29] LABS: INR 2.39 (0.82-1.09); PROTHROMBIN TIME (PATIENT) 26.8 SEC (9.98-11.88)
[2017-01-18 09:07] LABS: ALBUMIN 3.2 g/dl (3.4-5.0); BILIRUBIN,TOTAL 0.7 mg/dL (0.2-1.0); CALCIUM 8.5 mg/dL (8.5-10.1); COCKROFT - GAULT 45.59; CREATININE 1.8 mg/dL (0.7-1.3); MAGNESIUM 2.8 mg/dL (1.8-2.4); TOT PROT 7.1 g/dl (6.4-8.2)
[2017-01-18] MEDS: buPROPion HCL 75 MG TABLET PO SCH (09:52)
[2017-01-18] MEDS: ASCORBIC ACID 500 MG TABLET (FP) PO SCH (09:53)
[2017-01-18] MEDS: CLOPIDOGREL BISULFATE 75 MG TABLET (FP) PO SCH (09:53)
[2017-01-18] MEDS: AZITHROMYCIN 250 MG TABLET (FP) PO SCH (09:53)
[2017-01-18] MEDS: DOCUSATE SODIUM 100 MG CAPSULE (FP) PO SCH ×2 (09:53→22:10)
[2017-01-18] MEDS: ALLOPURINOL 100 MG TABLET (FP) PO SCH (09:54)
[2017-01-18] MEDS: MULTIVITAMINS (DAILY MVI) TABLET (FP) PO SCH (09:54)
[2017-01-18] MEDS: CARVEDILOL 6.25 MG TABLET (FP) PO SCH ×2 (09:54→22:10)
[2017-01-18] MEDS: RANITIDINE HCL 150 MG TABLET (FP) PO SCH (09:54)
[2017-01-18] MEDS: CHOLECALCIFEROL (VITAMIN D3) 400 UNIT TABLET (FP) PO SCH (09:55)
--- NOTE | 2017-01-18 10:32 | PN ---
Progress Note (short form) - Note Progress Note: Progress Note: Chief Complaint: sob History of Present Illness: still with jose but improving, not yet at baseline. still with le edema. no cp/ palps/dizzy/loc ex cigs Current Medications Generic Name Dose Route Start Last Admin Trade Name Freq PRN Reason Stop Dose Admin Acetaminophen 650 mg 01/13/17 10:09 01/16/17 01:58 Tylenol - PO 650 mg Q4H PRN Administration FEVER OR PAIN Albuterol Sulfate 1 amp 01/13/17 10:02 01/17/17 02:20 Ventolin 0.083% Nebulizer Soln - NEB 1 amp Q6H PRN Administration SHORT OF BREATH/WHEEZING Albuterol/Ipratropium 1 amp 01/13/17 22:00 01/18/17 06:28 Duoneb - NEB 1 amp TIDR [facility] Administration Allopurinol 100 mg 01/14/17 10:00 01/18/17 09:54 Zyloprim - PO 100 mg DAILY [facility] Administration Ascorbic Acid 1,000 mg 01/14/17 10:00 01/18/17 09:53 Vitamin C - PO 1,000 mg DAILY [facility] Administration Atorvastatin Calcium 40 mg 01/13/17 22:00 01/17/17 21:03 Lipitor - PO 40 mg HS [facility] Administration Azithromycin 250 mg 01/15/17 10:45 01/18/17 09:53 Zithromax - PO 250 mg DAILY [facility] Administration Bupropion HCl 75 mg 01/15/17 10:00 01/18/17 09:52 Wellbutrin - PO 75 mg DAILY [facility] Administration Carvedilol 6.25 mg 01/13/17 22:00 01/18/17 09:54 Coreg - PO 6.25 mg BID [facility] Administration Cholecalciferol 1,000 unit 01/14/17 10:00 01/18/17 09:55 Vitamin D3 - PO 1,000 unit DAILY [facility] Administration Clopidogrel Bisulfate 75 mg 01/14/17 10:00 01/18/17 09:53 Plavix - PO 75 mg DAILY [facility] Administration Docusate Sodium 100 mg 01/13/17 22:00 01/18/17 09:53 Colace - PO 100 mg BID [facility] Administration Ferrous Sulfate 325 mg 01/13/17 10:15 01/17/17 10:30 Feosol - PO 325 mg Q2D [facility] Administration Furosemide 80 mg 01/16/17 14:45 01/18/17 06:09 Lasix Injection - IVPB 80 mg BID@0600,1400 [facility] Administration Milrinone Lactate/Dextrose 100 mls @ 9.573 mls/hr 01/13/17 15:50 01/18/17 00:56 Milrinone 20mg/100ml Ivpb - IVPB 9.641 mls/hr TITR [facility] Administration 0.35 MCG/KG/MIN Insulin Aspart 1 vial 01/13/17 11:00 01/18/17 06:10 Novolog Vial Sliding Scale - SQ 3 units ACHS [facility] Administration Protocol Multivitamins/Minerals/Vitamin C 1 tab 01/15/17 10:00 01/18/17 09:54 Tab-A-Vit - PO 1 tab DAILY [facility] Administration Potassium Chloride 20 meq 01/13/17 14:00 01/18/17 06:09 K-Dur - PO 20 meq TID [facility] Administration Ranitidine HCl 75 mg 01/14/17 10:00 01/18/17 09:54 Zantac - PO 75 mg DAILY [facility] Administration Warfarin Sodium 4 mg 01/13/17 18:00 01/17/17 18:00 Coumadin - PO 4 mg DAILY@1800 [facility] Administration Vital Signs Temp 97.9 F 01/18/17 09:57 Pulse 75 01/18/17 09:57 Resp 20 01/18/17 09:57 BP 106/64 01/18/17 09:57 Pulse Ox 96 01/17/17 21:00 Intake & Output 01/17/17 01/17/17 01/18/17 11:59 23:59 11:59 Intake Total 264 572.5 357.9 Output Total 1350 1910 1200 Balance -1086 -1337.5 -842.1 Weight 208 lb 6 oz 210 lb 2 oz Intake: IV 114 172.5 67.9 Milrinone 20Mg/100Ml Ivpb 114 162.5 67.9 - 100 ml @ 0.35 MCG/KG/ MIN 9.573 mls/hr IVPB TITR [facility] Rx#:[id number] RH 22 01/17/2017 10 IVPB 50 100 50 Oral 100 300 240 Output: Urine 1350 1910 1200 Void 1350 1910 1200 Other: Voiding Method Urinal Urinal Urinal Bowel Movement Yes Yes Weight Measurement Method Standing Scale Standing Scale Constitutional: Yes: No Distress, Calm Eyes: No: Sclera Icterus HENT: No: Nasal Congestion Cardiovascular: Yes: Regular Rate and Rhythm, JVD (++), S1, S2, Other (PMI non diplaced). No: Gallop, Murmur Respiratory: Yes: Wheezes. No: Accessory Muscle Use, Rales Gastrointestinal: Yes: Normal Bowel Sounds, Soft. No: Tenderness Musculoskeletal: Yes: Other (No kyphosis) Extremities: No: Cold Edema: 1+ bl le edema Integumentary: No: Jaundice diaphoresis Neurological: Yes: Alert, Oriented (x3) Psychiatric: No: Agitated Labs: Laboratory Last Values WBC 8.5 K/mm3 (4.0-10.0) 01/17/17 05:35 RBC 4.48 M/mm3 (4.00-5.60) 01/17/17 05:35 Hgb 11.7 GM/dL (11.7-16.9) 01/17/17 05:35 Hct 36.7 % (35.4-49) 01/17/17 05:35 MCV 81.8 fl (80-96) 01/17/17 05:35 MCHC 32.0 g/dl (32.0-35.9) 01/17/17 05:35 RDW 18.6 % (11.9-15.9) H 01/17/17 05:35 Plt Count 163 K/MM3 (134-434) 01/17/17 05:35 MPV 8.8 fl (7.5-11.1) 01/17/17 05:35 Neutrophils % 71.1 % (42.8-82.8) 01/17/17 05:35 Lymphocytes % 14.3 % (8-40) D 01/17/17 05:35 Monocytes % 11.9 % (3.8-10.2) H 01/17/17 05:35 Eosinophils % 2.3 % (0-4.5) D 01/17/17 05:35 Basophils % 0.4 % (0-2.0) 01/17/17 05:35 Platelet Estimate Adequate (NORMAL) 01/15/17 06:00 Platelet Comment No clumping noted 01/15/17 06:00 INR 2.39 (0.82-1.09) H 01/18/17 05:38 Sodium 139 mmol/L (136-145) 01/18/17 05:38 Potassium 4.5 mmol/L (3.5-5.1) 01/18/17 05:38 Chloride 99 mmol/L (98-107) 01/18/17 05:38 Carbon Dioxide 30 mmol/L (21-32) 01/18/17 05:38 Anion Gap 10 (8-16) 01/18/17 05:38 BUN 59 mg/dL (7-18) H 01/18/17 05:38 Creatinine 1.8 mg/dL (0.7-1.3) H 01/18/17 05:38 Creat Clearance w eGFR 36.67 (>60) 01/18/17 05:38 POC Glucometer 247 UNITS (()) 01/18/17 05:32 Random Glucose 236 mg/dL (74-106) H D 01/18/17 05:38 Calcium 8.5 mg/dL (8.5-10.1) 01/18/17 05:38 Phosphorus 3.1 mg/dL (2.5-4.9) 01/17/17 05:35 Magnesium 2.8 mg/dL (1.8-2.4) H 01/18/17 05:38 Total Bilirubin 0.7 mg/dL (0.2-1.0) D 01/18/17 05:38 AST 21 U/L (15-37) 01/18/17 05:38 ALT 21 U/L (12-78) 01/18/17 05:38 Alkaline Phosphatase 156 U/L (45-117) H 01/18/17 05:38 Creatine Kinase 51 IU/L (39-308) 01/16/17 11:13 Troponin I 0.03 ng/ml (0.00-0.05) 01/16/17 11:13 B-Natriuretic Peptide 2012.19 pg/ml (5-450) H 01/13/17 01:36 Total Protein 7.1 g/dl (6.4-8.2) 01/18/17 05:38 Albumin 3.2 g/dl (3.4-5.0) L 01/18/17 05:38 Urine Color Ltyellow 01/13/17 20:15 Urine Appearance Clear 01/13/17 20:15 Urine pH 6.0 (5.0-8.0) 01/13/17 20:15 Ur Specific [place] <= 1.005 (1.005-1.025) 01/13/17 20:15 Urine Protein Negative (NEGATIVE) 01/13/17 20:15 Urine Glucose (UA) Negative (NEGATIVE) 01/13/17 20:15 Urine Ketones Negative (NEGATIVE) 01/13/17 20:15 Urine Blood Negative (NEGATIVE) 01/13/17 20:15 Urine Nitrite Negative (NEGATIVE) 01/13/17 20:15 Urine Bilirubin Negative (NEGATIVE) 01/13/17 20:15 Urine Urobilinogen Negative E.U./dl (0.2-1.0) 01/13/17 20:15 Ur Leukocyte Esterase Trace (NEGATIVE) H D 01/13/17 20:15 Urine RBC <1 /hpf (0-3) 01/13/17 20:15 Urine WBC 7 /hpf (3-5) 01/13/17 20:15 Ur Epithelial Cells Rare /hpf (FEW) 01/13/17 20:15 Hyaline Casts 9 /lpf 01/13/17 20:15 Urine Mucus Rare 01/13/17 20:15 - ....Imaging EKG: Other (tele: NSR, V-paced) cxr 01/16: inc andi changes. Assessment/Plan a/p: 76 year old man with PMH of IDDM, COPD (O2 dependant) HTN, HLD, Afib (on coumadin), CAD s/p PCIs, end stage CHF with ICD placement (on milrinone pump), PVD, BPH here with sob, cp, RODRIGUEZ. acute on chronic end stage systolic heart failure s/p ICD, on home milrinone infusion: - vol status seems stable (as above), home regimen = torsemide 40 po bid - worsened sob over baseline = progressive copd vs chf - will give 2 wks empiric trial of incr'd torsemide at home: 80mg am, 40mg pm - should have repeat bun/creat later after 3-5 days on this regimen - should see dr boyd 2 wks after discharge - cont milrinone at patient's home maintenance dose (on chronic infusion destination therapy)--0.35 mcg/kg/min. - cont home coreg (doubt causing bronchospasm--will d/w dr maddox ? rpt pft's) - recent office icd check with stable function - 01/16: discharge delayed due to persistent jose. CXR noted to have increased andi changes. weight slightly up. started on lasix 80 mg IV bid. - 01/17-: Still not feeling at his baseline but improving. Cr stable. con't milrinone, bid IV lasix with kcl supplements, coreg. copd: -per pulm cp: -atypical features ("like a swirl" sensation in center of chest, no radiation) -resolved and no recurrence here -trop WNL x 1 on DOA--rpt 01/16 ordered negative -ECG BiV-paced -this cp does not require inpatient evaluation--will consider outpt stress testing if his chronic sx (incr'd sob over baseline) does not respond to changes in inhalers for copd or incr diuretics afib - currently rate controlled on coreg - cont coumadin per INR PVD - con't AC, plavix, statin. CAD s/p PCIs - No anginal symptoms, no signs acs. Con't home ac, plavix, atorvastatin, coreg HTN: controlled on coreg HLD: con't statin. CKD - at baseline renal fxn
--- NOTE | 2017-01-18 15:12 | PN ---
Progress Note, Physician Chief Complaint: Mr Perez says he is still getting short of breath but is insisting he is feeling fine. Still with dyspnea with minimal exertion. No cp or n/v. - Current Medication List Current Medications: Active Medications Acetaminophen (Tylenol -) 650 mg PO Q4H PRN PRN Reason: FEVER OR PAIN Last Admin: 01/16/17 01:58 Dose: 650 mg Albuterol Sulfate (Ventolin 0.083% Nebulizer Soln -) 1 amp NEB Q6H PRN PRN Reason: SHORT OF BREATH/WHEEZING Last Admin: 01/17/17 02:20 Dose: 1 amp Albuterol/Ipratropium (Duoneb -) 1 amp NEB TIDR [facility] Last Admin: 01/18/17 14:14 Dose: 1 amp Allopurinol (Zyloprim -) 100 mg PO DAILY [facility] Last Admin: 01/18/17 09:54 Dose: 100 mg Ascorbic Acid (Vitamin C -) 1,000 mg PO DAILY [facility] Last Admin: 01/18/17 09:53 Dose: 1,000 mg Atorvastatin Calcium (Lipitor -) 40 mg PO HS [facility] Last Admin: 01/17/17 21:03 Dose: 40 mg Azithromycin (Zithromax -) 250 mg PO DAILY [facility] Last Admin: 01/18/17 09:53 Dose: 250 mg Bupropion HCl (Wellbutrin -) 75 mg PO DAILY [facility] Last Admin: 01/18/17 09:52 Dose: 75 mg Carvedilol (Coreg -) 6.25 mg PO BID [facility] Last Admin: 01/18/17 09:54 Dose: 6.25 mg Cholecalciferol (Vitamin D3 -) 1,000 unit PO DAILY [facility] Last Admin: 01/18/17 09:55 Dose: 1,000 unit Clopidogrel Bisulfate (Plavix -) 75 mg PO DAILY [facility] Last Admin: 01/18/17 09:53 Dose: 75 mg Docusate Sodium (Colace -) 100 mg PO BID [facility] Last Admin: 01/18/17 09:53 Dose: 100 mg Ferrous Sulfate (Feosol -) 325 mg PO Q2D [facility] Last Admin: 01/17/17 10:30 Dose: 325 mg Furosemide (Lasix Injection -) 80 mg IVPB BID@0600,1400 [facility] Last Admin: 01/18/17 13:43 Dose: 80 mg Milrinone Lactate/Dextrose (Milrinone 20mg/100ml Ivpb -) 100 mls @ 9.573 mls/ hr IVPB TITR [facility] PRN Reason: 0.35 MCG/KG/MIN Last Admin: 01/18/17 13:44 Dose: 9.722 mls/hr Insulin Aspart (Novolog Vial Sliding Scale -) 1 vial SQ ACHS [facility] PRN Reason: Protocol Last Admin: 01/18/17 12:10 Dose: 3 units Multivitamins/Minerals/Vitamin C (Tab-A-Vit -) 1 tab PO DAILY [facility] Last Admin: 01/18/17 09:54 Dose: 1 tab Potassium Chloride (K-Dur -) 20 meq PO TID [facility] Last Admin: 01/18/17 13:44 Dose: 20 meq Ranitidine HCl (Zantac -) 75 mg PO DAILY [facility] Last Admin: 01/18/17 09:54 Dose: 75 mg Warfarin Sodium (Coumadin -) 4 mg PO DAILY@1800 [facility] Last Admin: 01/17/17 18:00 Dose: 4 mg - Objective Vital Signs: Vital Signs Temperature 97.6 F 01/18/17 13:37 Pulse Rate 75 01/18/17 13:37 Respiratory Rate 20 01/18/17 13:37 Blood Pressure 105/56 01/18/17 13:37 O2 Sat by Pulse Oximetry (%) 95 01/18/17 10:46 Constitutional: Yes: Well Nourished, No Distress, Calm Cardiovascular: Yes: Regular Rate and Rhythm. No: Gallop, Murmur, Rub Respiratory: Yes: Regular, On Nasal O2, Rhonchi. No: Rales, Wheezes Gastrointestinal: Yes: Normal Bowel Sounds, Soft. No: Distention, Tenderness Extremities: Yes: WNL Edema: Yes Edema: LLE: 1+, RLE: 1+ Labs: CBC, BMP 01/17/17 05:35 01/18/17 05:38 INR, PTT INR 2.39 (0.82-1.09) H 01/18/17 05:38 Problem List - Problems (1) CHF (congestive heart failure) Code(s): I50.9 - HEART FAILURE, UNSPECIFIED Qualifiers: Congestive heart failure type: systolic Congestive heart failure chronicity: acute on chronic Qualified Code(s): I50.23 - Acute on chronic systolic (congestive) heart failure (2) Acute and chronic respiratory failure ([id number]) Code(s): J96.20 - ACUTE AND CHR RESP FAILURE, UNSP W HYPOXIA OR HYPERCAPNIA Qualifiers: Respiratory failure complication: hypoxia Qualified Code(s): J96.21 - Acute and chronic respiratory failure with hypoxia (3) Chest pain Code(s): R07.9 - CHEST PAIN, UNSPECIFIED (4) CAD (coronary artery disease) Code(s): I25.10 - ATHSCL HEART DISEASE OF [place] CORONARY ARTERY W/O ANG PCTRS (5) CKD (chronic kidney disease) Code(s): N18.9 - CHRONIC KIDNEY DISEASE, UNSPECIFIED Qualifiers: Chronic kidney disease stage: stage 4 (severe) Qualified Code(s): N18.4 - Chronic kidney disease, stage 4 (severe) (6) COPD (chronic obstructive pulmonary disease) Code(s): J44.9 - CHRONIC OBSTRUCTIVE PULMONARY DISEASE, UNSPECIFIED Qualifiers : COPD type: COPD with acute exacerbation Qualified Code(s): J44.1 - Chronic obstructive pulmonary disease with (acute) exacerbation (7) Diabetes Code(s): E11.9 - TYPE 2 DIABETES MELLITUS WITHOUT COMPLICATIONS Qualifiers: Diabetes mellitus type: type 2 Diabetes mellitus complication status: with kidney complications Diabetes mellitus complication detail: with chronic kidney disease Diabetes mellitus group home insulin use: with termite treater use Chronic kidney disease stage: stage 4 (severe) Qualified Code(s): E11.22 - Type 2 diabetes mellitus with diabetic chronic kidney disease ; N18.1 - Chronic kidney disease, stage 1; Z79.4 - custodial (current) use of insulin Assessment/Plan (1) Acute and chronic respiratory failure ([id number]) Assessment/Plan: -patient says feeling better, but still with FREIRE -continue IV lasix per cardiology -appears to be diuresing -discharge when safe from cardiology standpoint Code(s): J96.20 - ACUTE AND CHR RESP FAILURE, UNSP W HYPOXIA OR HYPERCAPNIA Qualifiers: Respiratory failure complication: hypoxia Qualified Code(s): J96.21 - Acute and chronic respiratory failure with hypoxia (2) Chest pain Assessment/Plan: -resolved Code(s): R07.9 - CHEST PAIN, UNSPECIFIED (3) CHF (congestive heart failure) Assessment/Plan: -continue milrinone gtt -diuresing with lasix -continue lasix 80mg IV bid Code(s): I50.9 - HEART FAILURE, UNSPECIFIED Qualifiers: Congestive heart failure type: systolic (4) CAD (coronary artery disease) Assessment/Plan: -stable -continue home regimen Code(s): I25.10 - ATHSCL HEART DISEASE OF [place] CORONARY ARTERY W/O ANG PCTRS (5) CKD (chronic kidney disease) Assessment/Plan: -at baseline -continue to monitor Code(s): N18.9 - CHRONIC KIDNEY DISEASE, UNSPECIFIED Qualifiers: Chronic kidney disease stage: stage 4 (severe) Qualified Code(s): N18.4 - Chronic kidney disease, stage 4 (severe) (6) COPD (chronic obstructive pulmonary disease) Assessment/Plan: -continue current management -suspect SOB now secondary to CHF -pulmonary following Code(s): J44.9 - CHRONIC OBSTRUCTIVE PULMONARY DISEASE, UNSPECIFIED Qualifiers : COPD type: COPD with acute exacerbation Qualified Code(s): J44.1 - Chronic obstructive pulmonary disease with (acute) exacerbation (7) Diabetes Assessment/Plan: -diabetic diet -FSBS and SSI Code(s): E11.9 - TYPE 2 DIABETES MELLITUS WITHOUT COMPLICATIONS Qualifiers: Diabetes mellitus type: type 2 Diabetes mellitus complication status: with kidney complications Diabetes mellitus complication detail: with chronic kidney disease Diabetes mellitus group home insulin use: with termite treater use Chronic kidney disease stage: stage 4 (severe) Qualified Code(s): E11.22 - Type 2 diabetes mellitus with diabetic chronic kidney disease ; N18.4 - Chronic kidney disease, stage 4 (severe); Z79.4 - custodial (current) use of insulin
--- NOTE | 2017-01-18 16:35 | PN ---
Progress Note (short form) - Note Progress Note: PULMONARY SUBJECTIVE IMPROVEMENT WANTS TO GO HOME FAMILY PRESENT LESS SOB/NO CP VSS/AFEBRILE NECK SUPPLE DISTANT B/L BREATH SOUNDS S1S2 BS+ LESS LOWER EXT EDEMA LABS/MEDS/NOTES/IMAGING/MEDS/MICRO REVIEWED IMP ACUTE ON CHRONIC HYPOXEMIC RESPIRATORY FAILURE STABLE COPD O2 DEPENDENT CHF S/P ICD ASHD S/P CABG AFIB HTN PULMONARY HTN DM CKD PLAN CONTINUE INHALED BRONCHODILATORS NASAL O2 TO MAINTAIN O2 SAT 90% DIURETICS PER CARDIOLOGY MONITOR WTS/ANTICOAGULATION KENYARINSUZIE SEE MD
[2017-01-18] MEDS: WARFARIN NA 2 MG TABLET (UD) PO SCH (17:46)
[2017-01-18] MEDS: ATORVASTATIN CA 40 MG TABLET (FP) PO SCH (22:10)
[2017-01-19] MEDS: FUROSEMIDE 100 MG/10 ML INJECTABLE VIAL IVPB SCH (06:18)
[2017-01-19] MEDS: INSULIN SLIDING SCALE (NOVOLOG) 1 VIAL SQ SCH ×2 (06:18→12:01)
[2017-01-19] MEDS: POTASSIUM CHLORIDE TABS 20 MEQ TABLET.ER (FP) PO SCH (06:18)
[2017-01-19 06:35] VITALS: PULSE 76
[2017-01-19] MEDS: ALBUTEROL SO4 2.5/IPRATROPIUM 0.5 INH SOL 3 ML VIAL.NEB. NEB SCH (06:40)
[2017-01-19 06:45] LABS: BASOPHIL 0.4 % (0-2.0); EOSINOPHIL 2.3 % (0-4.5); MCH 26.3 pg (25.7-33.7); MCHC 32.3 g/dl (32.0-35.9); MEAN CELL VOLUME 81.6 fl (80-96); MEAN PLT VOLUME 8.7 fl (7.5-11.1); NEUTROPHILS 73.3 % (42.8-82.8); PLATELET COUNT 190 K/MM3 (134-434); RDW 18.3 % (11.9-15.9); WHITE BLOOD COUNT 8.5 K/mm3 (4.0-10.0)
[2017-01-19 07:05] LABS: CALCIUM 8.7 mg/dL (8.5-10.1); COCKROFT - GAULT 24.54; CREATININE 1.8 mg/dL (0.7-1.3); MAGNESIUM 2.8 mg/dL (1.8-2.4); PHOSPHOROUS 3.4 mg/dL (2.5-4.9)
[2017-01-19] MEDS ORDERED: PT OWN MED DRAWER 7, Y5N ONE ×2 (08:45→10:17)
[2017-01-19] MEDS: MILRINONE 20MG/100ML IVPB - 100 ML IVPB SCH (08:59)
[2017-01-19 09:51] LABS: INR 2.17 (0.82-1.09); PROTHROMBIN TIME (PATIENT) 24.3 SEC (9.98-11.88)
[2017-01-19] MEDS: CARVEDILOL 6.25 MG TABLET (FP) PO SCH (10:23)
[2017-01-19] MEDS: CHOLECALCIFEROL (VITAMIN D3) 400 UNIT TABLET (FP) PO SCH (10:23)
[2017-01-19] MEDS: buPROPion HCL 75 MG TABLET PO SCH (10:23)
[2017-01-19] MEDS: FERROUS SO4 325 MG TABLET (FP) PO SCH (10:24)
[2017-01-19] MEDS: DOCUSATE SODIUM 100 MG CAPSULE (FP) PO SCH (10:24)
[2017-01-19] MEDS: AZITHROMYCIN 250 MG TABLET (FP) PO SCH (10:24)
[2017-01-19] MEDS: RANITIDINE HCL 150 MG TABLET (FP) PO SCH (10:24)
[2017-01-19] MEDS: CLOPIDOGREL BISULFATE 75 MG TABLET (FP) PO SCH (10:24)
[2017-01-19] MEDS: MULTIVITAMINS (DAILY MVI) TABLET (FP) PO SCH (10:24)
[2017-01-19] MEDS: ALLOPURINOL 100 MG TABLET (FP) PO SCH (10:25)
[2017-01-19] MEDS: ASCORBIC ACID 500 MG TABLET (FP) PO SCH (10:25)
[2017-01-19 10:29] VITALS: BP 115/79; TEMP 99
--- NOTE | 2017-01-19 10:49 | PN ---
Progress Note (short form) - Note Progress Note: Progress Note: Chief Complaint: sob History of Present Illness: no cp/palps/dizzy/loc; pt says he is at his baseline and wants to go home today ex cigs Current Medications Generic Name Dose Route Start Last Admin Trade Name Freq PRN Reason Stop Dose Admin Acetaminophen 650 mg 01/13/17 10:09 01/16/17 01:58 Tylenol - PO 650 mg Q4H PRN Administration FEVER OR PAIN Albuterol Sulfate 1 amp 01/13/17 10:02 01/17/17 02:20 Ventolin 0.083% Nebulizer Soln - NEB 1 amp Q6H PRN Administration SHORT OF BREATH/WHEEZING Albuterol/Ipratropium 1 amp 01/13/17 22:00 01/19/17 06:40 Duoneb - NEB 1 amp TIDR [facility] Administration Allopurinol 100 mg 01/14/17 10:00 01/19/17 10:25 Zyloprim - PO 100 mg DAILY [facility] Administration Ascorbic Acid 1,000 mg 01/14/17 10:00 01/19/17 10:25 Vitamin C - PO 1,000 mg DAILY [facility] Administration Atorvastatin Calcium 40 mg 01/13/17 22:00 01/18/17 22:10 Lipitor - PO 40 mg HS [facility] Administration Azithromycin 250 mg 01/15/17 10:45 01/19/17 10:24 Zithromax - PO 250 mg DAILY [facility] Administration Bupropion HCl 75 mg 01/15/17 10:00 01/19/17 10:23 Wellbutrin - PO 75 mg DAILY [facility] Administration Carvedilol 6.25 mg 01/13/17 22:00 01/19/17 10:23 Coreg - PO 6.25 mg BID [facility] Administration Cholecalciferol 1,000 unit 01/14/17 10:00 01/19/17 10:23 Vitamin D3 - PO 1,000 unit DAILY [facility] Administration Clopidogrel Bisulfate 75 mg 01/14/17 10:00 01/19/17 10:24 Plavix - PO 75 mg DAILY [facility] Administration Docusate Sodium 100 mg 01/13/17 22:00 01/19/17 10:24 Colace - PO 100 mg BID [facility] Administration Ferrous Sulfate 325 mg 01/13/17 10:15 01/19/17 10:24 Feosol - PO 325 mg Q2D [facility] Administration Furosemide 80 mg 05/22/17 14:45 01/19/17 06:18 Lasix Injection - IVPB 80 mg BID@0600,1400 [facility] Administration Milrinone Lactate/Dextrose 100 mls @ 9.573 mls/hr 01/13/17 15:50 01/19/17 08:59 Milrinone 20mg/100ml Ivpb - IVPB 9.9 mls/hr TITR [facility] Administration 0.35 MCG/KG/MIN Insulin Aspart 1 vial 01/13/17 11:00 01/19/17 06:18 Novolog Vial Sliding Scale - SQ Not Given ACHS [facility] Protocol Multivitamins/Minerals/Vitamin C 1 tab 01/15/17 10:00 01/19/17 10:24 Tab-A-Vit - PO 1 tab DAILY [facility] Administration Potassium Chloride 20 meq 01/13/17 14:00 01/19/17 06:18 K-Dur - PO 20 meq TID [facility] Administration Ranitidine HCl 75 mg 01/14/17 10:00 01/19/17 10:24 Zantac - PO 75 mg DAILY [facility] Administration Warfarin Sodium 4 mg 01/13/17 18:00 01/18/17 17:46 Coumadin - PO 4 mg DAILY@1800 [facility] Administration Vital Signs Temp 99 F 01/19/17 10:28 Pulse 76 01/19/17 10:28 Resp 22 01/19/17 10:28 BP 115/79 01/19/17 10:28 Pulse Ox 96 01/18/17 21:00 Intake & Output 01/18/17 01/18/17 01/19/17 11:59 23:59 11:59 Intake Total 357.9 446.4 236.4 Output Total 1200 1050 700 Balance -842.1 -603.6 -463.6 Weight 210 lb 2 oz 213 lb 3.2 oz Intake: IV 67.9 116.4 116.4 Milrinone 20Mg/100Ml Ivpb 67.9 116.4 116.4 - 100 ml @ 0.35 MCG/KG/ MIN 9.573 mls/hr IVPB TITR [facility] Rx#:[id number] IVPB 50 Oral 240 330 120 Output: Urine 1200 1050 700 Void 1200 1050 700 Other: Voiding Method Urinal Urinal Urinal Bowel Movement Yes Yes Weight Measurement Method Standing Scale Baby Scale Constitutional: Yes: No Distress, Calm Eyes: No: Sclera Icterus HENT: No: Nasal Congestion Cardiovascular: Yes: Regular Rate and Rhythm, JVD (++), S1, S2, Other (PMI non diplaced). No: Gallop, Murmur Respiratory: Yes: cta bl nl eff No: Accessory Muscle Use, Rales Gastrointestinal: Yes: Normal Bowel Sounds, Soft. No: Tenderness Musculoskeletal: Yes: Other (No kyphosis) Extremities: No: Cold Edema: 1+ bl le edema Integumentary: No: Jaundice diaphoresis Neurological: Yes: Alert, Oriented (x3) Psychiatric: No: Agitated Labs: Laboratory Last Values WBC 8.5 K/mm3 (4.0-10.0) 01/19/17 05:35 RBC 4.43 M/mm3 (4.00-5.60) 01/19/17 05:35 Hgb 11.7 GM/dL (11.7-16.9) 01/19/17 05:35 Hct 36.1 % (35.4-49) 01/19/17 05:35 MCV 81.6 fl (80-96) 01/19/17 05:35 MCHC 32.3 g/dl (32.0-35.9) 01/19/17 05:35 RDW 18.3 % (11.9-15.9) H 01/19/17 05:35 Plt Count 190 K/MM3 (134-434) 01/19/17 05:35 MPV 8.7 fl (7.5-11.1) 01/19/17 05:35 Neutrophils % 73.3 % (42.8-82.8) 01/19/17 05:35 Lymphocytes % 13.7 % (8-40) 01/19/17 05:35 Monocytes % 10.3 % (3.8-10.2) H 01/19/17 05:35 Eosinophils % 2.3 % (0-4.5) 01/19/17 05:35 Basophils % 0.4 % (0-2.0) 01/19/17 05:35 Platelet Estimate Adequate (NORMAL) 01/15/17 06:00 Platelet Comment No clumping noted 01/15/17 06:00 INR 2.17 (0.82-1.09) H 01/19/17 05:35 Sodium 141 mmol/L (136-145) 01/19/17 06:00 Potassium 4.5 mmol/L (3.5-5.1) 01/19/17 06:00 Chloride 101 mmol/L (98-107) 01/19/17 06:00 Carbon Dioxide 29 mmol/L (21-32) 01/19/17 06:00 Anion Gap 11 (8-16) 01/19/17 06:00 BUN 55 mg/dL (7-18) H 01/19/17 06:00 Creatinine 1.8 mg/dL (0.7-1.3) H 01/19/17 06:00 Creat Clearance w eGFR 36.67 (>60) 01/18/17 05:38 POC Glucometer 112 UNITS (()) 01/19/17 05:21 Random Glucose 116 mg/dL (74-106) H D 01/19/17 06:00 Calcium 8.7 mg/dL (8.5-10.1) 01/19/17 06:00 Phosphorus 3.4 mg/dL (2.5-4.9) 01/19/17 06:00 Magnesium 2.8 mg/dL (1.8-2.4) H 01/19/17 06:00 Total Bilirubin 0.7 mg/dL (0.2-1.0) D 01/18/17 05:38 AST 21 U/L (15-37) 01/18/17 05:38 ALT 21 U/L (12-78) 01/18/17 05:38 Alkaline Phosphatase 156 U/L (45-117) H 01/18/17 05:38 Creatine Kinase 51 IU/L (39-308) 01/16/17 11:13 Troponin I 0.03 ng/ml (0.00-0.05) 01/16/17 11:13 B-Natriuretic Peptide 2012.19 pg/ml (5-450) H 01/13/17 01:36 Total Protein 7.1 g/dl (6.4-8.2) 01/18/17 05:38 Albumin 3.2 g/dl (3.4-5.0) L 01/18/17 05:38 Urine Color Ltyellow 01/13/17 20:15 Urine Appearance Clear 01/13/17 20:15 Urine pH 6.0 (5.0-8.0) 01/13/17 20:15 Ur Specific Ramona <= 1.005 (1.005-1.025) 01/13/17 20:15 Urine Protein Negative (NEGATIVE) 01/13/17 20:15 Urine Glucose (UA) Negative (NEGATIVE) 01/13/17 20:15 Urine Ketones Negative (NEGATIVE) 01/13/17 20:15 Urine Blood Negative (NEGATIVE) 01/13/17 20:15 Urine Nitrite Negative (NEGATIVE) 01/13/17 20:15 Urine Bilirubin Negative (NEGATIVE) 01/13/17 20:15 Urine Urobilinogen Negative E.U./dl (0.2-1.0) 01/13/17 20:15 Ur Leukocyte Esterase Trace (NEGATIVE) H D 01/13/17 20:15 Urine RBC <1 /hpf (0-3) 01/13/17 20:15 Urine WBC 7 /hpf (3-5) 01/13/17 20:15 Ur Epithelial Cells Rare /hpf (FEW) 01/13/17 20:15 Hyaline Casts 9 /lpf 01/13/17 20:15 Urine Mucus Rare 01/13/17 20:15 - ....Imaging EKG: Other (tele: NSR, V-paced) cxr 01/16: inc andi changes. Assessment/Plan a/p: 76 year old man with PMH of IDDM, COPD (O2 dependant) HTN, HLD, Afib (on coumadin), CAD s/p PCIs, end stage CHF with ICD placement (on milrinone pump), PVD, BPH here with sob, cp, RODRIGUEZ. acute on chronic end stage systolic heart failure s/p ICD, on home milrinone infusion: - vol status seems stable (as above), home regimen = torsemide 40 po bid - worsened sob over baseline = progressive copd vs chf - cont milrinone at patient's home maintenance dose (on chronic infusion destination therapy)--0.35 mcg/kg/min. - cont home coreg (doubt causing bronchospasm--will d/w dr maddox ? rpt pft's) - recent office icd check with stable function - 01/16: discharge delayed due to persistent jose. CXR noted to have increased andi changes. weight slightly up. started on lasix 80 mg IV bid. - 01/17-24: Still not feeling at his baseline but improving. Cr stable. con't milrinone, bid IV lasix with kcl supplements, coreg. - 01/19: today pt says he is at his baseline and wants to go home, declines any further inpt diuresis. Ok for dc with following plan: - will give 2 wks empiric trial of incr'd torsemide at home: 80mg am, 40mg pm - should have repeat bun/creat after approx 5 days on this regimen - should see dr boyd 2 wks after discharge - cont milrinone copd: -per pulm cp: -atypical features ("like a swirl" sensation in center of chest, no radiation) -resolved and no recurrence here -trop WNL x 1 on DOA--rpt 01/16 ordered negative -ECG BiV-paced -this cp does not require inpatient evaluation--will consider outpt stress testing if his chronic sx (incr'd sob over baseline) does not respond to changes in inhalers for copd or incr diuretics afib - currently rate controlled on coreg - cont coumadin per INR PVD - con't AC, plavix, statin. CAD s/p PCIs - No anginal symptoms, no signs acs. Con't home ac, plavix, atorvastatin, coreg HTN: controlled on coreg HLD: con't statin. CKD - at baseline renal fxn
--- NOTE | 2017-01-19 11:06 | DS ---
Physical Examination Vital Signs: Vital Signs Temperature 99 F 01/19/17 10:28 Pulse Rate 76 01/19/17 10:28 Respiratory Rate 22 01/19/17 10:28 Blood Pressure 115/79 01/19/17 10:28 O2 Sat by Pulse Oximetry (%) 96 01/18/17 21:00 Constitutional: Yes: Well Nourished, No Distress, Calm Cardiovascular: Yes: Regular Rate and Rhythm, Murmur. No: Gallop, Rub Respiratory: Yes: Regular, On Nasal O2, Rhonchi. No: Rales, Wheezes Gastrointestinal: Yes: Normal Bowel Sounds, Soft. No: Distention, Tenderness Extremities: Yes: WNL Edema: Yes Edema: LLE: 2+, RLE: 2+ Labs: CBC, BMP 01/19/17 05:35 01/19/17 06:00 Discharge Summary Reason For Visit: CHF, CHEST PAIN, ACUTE KIDNEY INJURY Current Active Problems Acute kidney injury (Acute) CHF (congestive heart failure) (Acute) Chest pain (Acute) Diabetes (Acute) Hospital Course: (1) CHF (congestive heart failure) Code(s): I50.9 - HEART FAILURE, UNSPECIFIED Qualifiers: Congestive heart failure type: systolic Congestive heart failure chronicity: acute on chronic Qualified Code(s): I50.23 - Acute on chronic systolic (congestive) heart failure (2) Acute and chronic respiratory failure ([id number]) Code(s): J96.20 - ACUTE AND CHR RESP FAILURE, UNSP W HYPOXIA OR HYPERCAPNIA Qualifiers: Respiratory failure complication: hypoxia Qualified Code(s): J96.21 - Acute and chronic respiratory failure with hypoxia (3) Chest pain Code(s): R07.9 - CHEST PAIN, UNSPECIFIED (4) CAD (coronary artery disease) Code(s): I25.10 - ATHSCL HEART DISEASE OF [place] CORONARY ARTERY W/O ANG PCTRS (5) CKD (chronic kidney disease) Code(s): N18.9 - CHRONIC KIDNEY DISEASE, UNSPECIFIED Qualifiers: Chronic kidney disease stage: stage 4 (severe) Qualified Code(s): N18.4 - Chronic kidney disease, stage 4 (severe) (6) COPD (chronic obstructive pulmonary disease) Code(s): J44.9 - CHRONIC OBSTRUCTIVE PULMONARY DISEASE, UNSPECIFIED Qualifiers : COPD type: COPD with acute exacerbation Qualified Code(s): J44.1 - Chronic obstructive pulmonary disease with (acute) exacerbation (7) Diabetes Code(s): E11.9 - TYPE 2 DIABETES MELLITUS WITHOUT COMPLICATIONS Qualifiers: Diabetes mellitus type: type 2 Diabetes mellitus complication status: with kidney complications Diabetes mellitus complication detail: with chronic kidney disease Diabetes mellitus long term care social worker insulin use: with long term care social worker use Chronic kidney disease stage: stage 4 (severe) Qualified Code(s): E11.22 - Type 2 diabetes mellitus with diabetic chronic kidney disease ; N18.1 - Chronic kidney disease, stage 1; 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 He was originally treated for COPD and improved, however on the day of discharge he became acutely short of breath with exertion. He was evaluated and found to be in CHF exacerbation. His discharge was cancelled and he was diuresed with IV lasix. He improved, however he was still fluid overloaded. Nonetheless he felt he was at baseline and was ready for discharged. He will be transitioned over to oral torsemide. He should have close follow up with cardiology and his PCP. 35 minutes spent in preparation of this discharge Condition: Good - Instructions Diet, Activity, Other Instructions: resume previous diet and activity. BMP on . Follow up with Dr Garner in 2 weeks. Referrals: Miguel Valle MD [Staff Physician] - Khang Lopez MD [Primary Care Provider] - Nash Garner MD [Staff Physician] - Disposition: HOME - Home Medications Comprehensive Discharge Medication List: Ambulatory Orders Allopurinol [Zyloprim -] 100 mg PO DAILY 09/10/15 Atorvastatin Ca [Lipitor] 40 mg PO HS 09/10/15 Carvedilol 6.25 mg PO BID 09/10/15 Docusate Sodium [Colace -] 100 mg PO BID 09/10/15 Insulin NPL/Insulin Lispro [Humalog Mix 75-25 Vial] 0 unit SQ PRN 09/10/15 Milrinone Lactate/D5w [Milrinone 0.2 mg/ml in D5w] 0 mg IV DAILY 09/10/15 Ranitidine [Zantac -] 75 mg PO DAILY 09/10/15 Albuterol 0.083% Nebulizer Jewell [Ventolin 0.083% Nebulizer Soln -] 1 amp NEB Q6H PRN #120 amp 09/14/15 Ferrous Sulfate [Feosol] 325 mg PO Q48H ud 04/23/16 Potassium Chloride [K-Dur -] 20 meq PO TID #90 tablet.er 04/23/16 Warfarin Na [Coumadin -] 4 mg PO DAILY@1800 09/06/16 Bupropion HCl [Wellbutrin -] 75 mg DAILY 09/08/16 Ascorbic Acid [Vitamin C -] 1,000 mg PO DAILY 11/24/16 Cholecalciferol (Vitamin D3) [Vitamin D -] 1,000 unit PO DAILY 11/24/16 Clopidogrel Bisulfate [Plavix -] 75 mg PO DAILY 11/24/16 Multivitamin [Poly-Vitamin] 1 each PO DAILY 11/24/16 Torsemide [Demadex -] 40 mg PO HS #30 tablet 01/16/17 Torsemide [Demadex -] 80 mg PO DAILY@0600 #30 tablet 01/16/17
== END 2017-01-19 13:39 | disposition home health service (06) | DRG 291 ==
LOC: JER 01:16 → JERBED 05:47 → J4S 08:39
PROVIDERS: ADMIT Internal Medicine; ATTEND Internal Medicine
DX: I13.0 Hypertensive heart and chronic kidney disease with heart failure and stage 1 through stage 4 chronic kidney disease, or unspecified chronic kidney disease (principal); J96.21 Acute and chronic respiratory failure with hypoxia; I50.23 Acute on chronic systolic (congestive) heart failure; N18.4 Chronic kidney disease, stage 4 (severe); J44.1 Chronic obstructive pulmonary disease with (acute) exacerbation; I25.10 Atherosclerotic heart disease of native coronary artery without angina pectoris; Z98.61 Coronary angioplasty status; Z95.0 Presence of cardiac pacemaker; Z95.2 Presence of prosthetic heart valve; I25.2 Old myocardial infarction; N40.0 Benign prostatic hyperplasia without lower urinary tract symptoms; E78.00 Pure hypercholesterolemia, unspecified; D64.9 Anemia, unspecified; Z95.1 Presence of aortocoronary bypass graft; E11.22 Type 2 diabetes mellitus with diabetic chronic kidney disease; Z99.81 Dependence on supplemental oxygen; E11.65 Type 2 diabetes mellitus with hyperglycemia; I73.9 Peripheral vascular disease, unspecified; I27.2 Other secondary pulmonary hypertension; Z79.4 Long term (current) use of insulin
CPT/HCPCS: 36415; 71010-TC; 80048; 80053; 81003; 81015; 82550; 83735; 83880; 84100; 84484; 85025; 85610; 93005; 93010; 94640; 99285-25

== ENCOUNTER 2017-01-22 03:10 | Inpatient (IN) | payer BC, OTHER ==
--- NOTE | 2017-01-22 03:32 | PDOC ---
History of Present Illness - General History Source: Patient Exam Limitations: No Limitations - History of Present Illness Initial Comments: 01/22/17 04:36 The patient is a 76 year old male with a significant past medical history of CHF (on the portal milrinone pump), A fib, CAD (with pacemaker, 2 stents, heart valve replacement; past episode of DE in 2010), COPD, and IDDM, who presents to the ED with complaints of shortness of breath for a week. The patient was recently seen in the ED on 01/13/17 and was admitted for a week with CHF. As per , the patient has shortness of breath and bilateral feet edema since being discharged from the hospital. Patient reports that the patient symptoms are progressively worsening and for the past several days has abdominal distension. Denies fevers or chills. Denies chest pain or palpitations. Denies abdominal pain, nausea, vomiting, or diarrhea. Denies any other symptoms. <Rivka Gutierrez - Last Filed: 01/22/17 04:36> <Meghan Yap - Last Filed: 01/22/17 06:56> - General Stated Complaint: SOB, EDEMA Time Seen by Provider: 01/22/17 03:22 Past History <Rivka Gutierrez - Last Filed: 01/22/17 04:36> - Past Medical History Anemia: Yes Asthma: No Cancer: No Cardiac Disorders: Yes (CHF, DE 2010,defibrilator placement,PACEMAKER) CVA: No COPD: Yes CHF: Yes Dementia: No Diabetes: Yes GI Disorders: No Disorders: Yes (bph) HTN: Yes Hypercholesterolemia: Yes Liver Disease: No Suicide Attempt (Hx): No Seizures: No Thyroid Disease: No - Surgical History Abdominal Surgery: Yes (HERNIA REPAIR 2002) Appendectomy: No Cardiac Surgery: Yes (2 OPEN HEART SURGERIES; TRACH PLACEMENT,PACEMAKER PLACED ) Cholecystectomy: Yes Lung Surgery: No Neurologic Surgery: No Orthopedic Surgery: No - Immunization History Td Vaccination: Yes TDAP Vaccination: Yes Immunization Up to Date: Yes - Psycho/Social/Smoking Cessation Hx Anxiety: No Suicidal Ideation: No Smoking Status: No Smoking History: Unknown if ever smoked Years of Tobacco Use: 40 Have you smoked in the past 12 months: No Number of Cigarettes Smoked Daily: 40 If you are a former smoker, when did you quit?: 2010 Cigars Per Day: 0 'Breaking Loose' booklet given: 02/06/12 Hx Alcohol Use: No Drug/Substance Use Hx: No Substance Use Type: None Hx Substance Use Treatment: No <Meghan Yap - Last Filed: 01/22/17 06:56> - Past Medical History Allergies/Adverse Reactions: Allergies Allergy/AdvReac Type Severity Reaction Status Date / Time No Known Drug Allergies Allergy Verified 01/22/17 03:51 shellfish derived Allergy Verified 01/22/17 03:51 Home Medications: Ambulatory Orders Allopurinol [Zyloprim -] 100 mg PO DAILY 09/10/15 Atorvastatin Ca [Lipitor] 40 mg PO HS 09/10/15 Carvedilol 6.25 mg PO BID 09/10/15 Docusate Sodium [Colace -] 100 mg PO BID 09/10/15 Insulin NPL/Insulin Lispro [Humalog Mix 75-25 Vial] 0 unit SQ PRN 09/10/15 Milrinone Lactate/D5w [Milrinone 0.2 mg/ml in D5w] 0 mg IV DAILY 09/10/15 Ranitidine [Zantac -] 75 mg PO DAILY 09/10/15 Albuterol 0.083% Nebulizer Jewell [Ventolin 0.083% Nebulizer Soln -] 1 amp NEB Q6H PRN #120 amp 09/14/15 Ferrous Sulfate [Feosol] 325 mg PO Q48H ud 04/23/16 Potassium Chloride [K-Dur -] 20 meq PO TID #90 tablet.er 04/23/16 Warfarin Na [Coumadin -] 4 mg PO DAILY@1800 09/06/16 Bupropion HCl [Wellbutrin -] 75 mg DAILY 09/08/16 Ascorbic Acid [Vitamin C -] 1,000 mg PO DAILY 11/24/16 Cholecalciferol (Vitamin D3) [Vitamin D -] 1,000 unit PO DAILY 11/24/16 Clopidogrel Bisulfate [Plavix -] 75 mg PO DAILY 11/24/16 Multivitamin [Poly-Vitamin] 1 each PO DAILY 11/24/16 Torsemide [Demadex -] 40 mg PO HS #30 tablet 01/16/17 Torsemide [Demadex -] 80 mg PO DAILY@0600 #30 tablet 01/16/17 Review of Systems - Review of Systems Able to Perform ROS?: Yes Comments:: 01/22/17 04:37 CONSTITUTIONAL: Absent: fever, chills, diaphoresis, generalized weakness, malaise, loss of appetite HEENT: Absent: rhinorrhea, nasal congestion, throat pain, throat swelling, difficulty swallowing, mouth swelling, ear pain, eye pain, visual Changes CARDIOVASCULAR: Absent: chest pain, syncope, palpitations, irregular heart rate, lightheadedness , peripheral edema RESPIRATORY: + shortness of breath Absent: cough, dyspnea with exertion, orthopnea, wheezing, stridor, hemoptysis GASTROINTESTINAL: + abdominal distension Absent: abdominal pain, nausea, vomiting, diarrhea, constipation, melena, hematochezia GENITOURINARY: Absent: dysuria, frequency, urgency, hesitancy, hematuria, flank pain, genital pain MUSCULOSKELETAL: + feet swelling Absent: myalgia, arthralgia SKIN: Absent: rash, itching, pallor HEMATOLOGIC/IMMUNOLOGIC: Absent: easy bleeding, easy bruising, lymphadenopathy, frequent infections ENDOCRINE: Absent: unexplained weight gain, unexplained weight loss, heat intolerance, cold intolerance NEUROLOGIC: Absent: headache, focal weakness or paresthesias, dizziness, unsteady gait, seizure, mental status changes, bladder or bowel incontinence PSYCHIATRIC: Absent: anxiety, depression, suicidal or homicidal ideation, hallucinations. All Other Systems: Reviewed and Negative <Rivka Gutierrez - Last Filed: 01/22/17 04:36> *Physical Exam - Vital Signs Last Vital Signs Temp Pulse Resp BP Pulse Ox 97.4 F L 79 23 123/78 93 L 01/22/17 03:25 01/22/17 03:25 01/22/17 03:25 01/22/17 03:25 01/22/17 03:25 - Physical Exam Comments: 01/22/17 04:37 GENERAL: Well developed, well nourished. Awake and alert. No acute distress. HEENT: Normocephalic, atraumatic. PERRLA, EOMI. No conjunctival pallor. Sclera are non- icteric. Moist mucous membranes. Oropharynx is clear. NECK: Supple. Full ROM. No JVD. Carotid pulses 2+ and symmetric, without bruits. No thyromegaly. NCo lymphadenopathy. CARDIOVASCULAR: Regular rate and rhythm. No murmurs, rubs, or gallops. Distal pulses are 2+ and symmetric. PULMONARY: + crackles longterm up his bilateral lungs, breathing easily sitting up on oxygen. No evidence of respiratory distress. Lungs clear to auscultation bilaterally. No wheezingor rhonchi. ABDOMINAL: + abdominal distention, no ascites or fluid. Soft. Non-tender. No rebound or guarding. No organomegaly. Normoactive bowel sounds. MUSCULOSKELETAL Normal range of motion at all joints. No bony deformities or tenderness. No CVA tenderness. EXTREMITIES: + pitting edema in the bilateral feet and ankles. No cyanosis. No clubbing. No calf tenderness. SKIN: Warm and dry. Normal capillary refill. No rashes. No jaundice. NEUROLOGICAL: Alert, awake, appropriate. Cranial nerves 2-12 intact. No deficits to light touch and temperature in face, upper extremities and lower extremities. No motor deficits in the in face, upper extremities and lower extremities. Normoreflexic in the upper and lower extremities. Normal speech. Toes are down- going bilaterally. Gait is normal without ataxia. PSYCHIATRIC: Cooperative. Good eye contact. Appropriate mood and affect. <Rivka Gutierrez - Last Filed: 01/22/17 04:36> ED Treatment Course - LABORATORY CBC & Chemistry Diagram: 01/22/17 03:44 01/22/17 03:44 - ADDITIONAL ORDERS Additional order review: Laboratory Results 01/22/17 01/22/17 03:44 03:44 INR 2.24 H Sodium 148 H Potassium 4.3 Chloride 106 Carbon Dioxide 31 Anion Gap 11 BUN 52 H Creatinine 2.0 H Creat Clearance w eGFR 32.48 Random Glucose 129 H Calcium 8.6 Total Bilirubin 0.6 AST 35 D ALT 37 D Alkaline Phosphatase 180 H Creatine Kinase 55 Troponin I 0.04 D Total Protein 7.0 Albumin 3.2 L 01/22/17 03:44 RBC 4.40 MCV 82.0 MCHC 31.3 L RDW 18.6 H MPV 8.2 Neutrophils % 76.2 Lymphocytes % 11.0 Monocytes % 10.3 H Eosinophils % 1.9 Basophils % 0.6 <Rivka Gutierrez - Last Filed: 01/22/17 04:36> - LABORATORY CBC & Chemistry Diagram: 01/22/17 03:44 01/22/17 03:44 <Meghan Yap - Last Filed: 01/22/17 06:56> Medical Decision Making - Medical Decision Making 01/22/17 04:54 worsening patchy edema in the bialteral lungs. Pt cannot sleep. Pt cannot breathe. He is very anxious. BP is low; on milrinone drip. Pt had valve replaced in past and CABG and ventricular pacemaker. Pt was admitted 2 weeks ago for a week and now he is back for the same inability to breathe easily. He will be readmitted to Dr. Lopez's service. Pt is improving and stable on BiPAP. <Meghan Yap - Last Filed: 01/22/17 06:56> *DC/Admit/Observation/Transfer - Attestations Scribe Attestion: 01/22/17 04:37 Documentation prepared by Rivka Gutierrez, acting as medical researcher for Meghan Yap MD <Rivka Gutierrez - Last Filed: 01/22/17 04:36> - Discharge Dispostion Admit: Yes <Meghan Yap - Last Filed: 01/22/17 06:56> Diagnosis at time of Disposition: Presence of permanent cardiac pacemaker, Diabetes, CAD (coronary artery disease ), CHF (congestive heart failure), Cough, Renal insufficiency, Chest pain - Referrals
[2017-01-22 03:50] LABS: BASOPHIL 0.6 % (0-2.0); EOSINOPHIL 1.9 % (0-4.5); MCH 25.6 pg (25.7-33.7); MCHC 31.3 g/dl (32.0-35.9); MEAN PLT VOLUME 8.2 fl (7.5-11.1); NEUTROPHILS 76.2 % (42.8-82.8); PLATELET COUNT 195 K/MM3 (134-434); RDW 18.6 % (11.9-15.9); WHITE BLOOD COUNT 7.8 K/mm3 (4.0-10.0)
[2017-01-22 03:51] VITALS: BMI 28.6
[2017-01-22 04:00] LABS: INR 2.24 (0.82-1.09); PROTHROMBIN TIME (PATIENT) 25.1 SEC (9.98-11.88)
[2017-01-22 04:15] LABS: ALBUMIN 3.2 g/dl (3.4-5.0); BILIRUBIN,TOTAL 0.6 mg/dL (0.2-1.0); CALCIUM 8.6 mg/dL (8.5-10.1); COCKROFT - GAULT 41.2
[2017-01-22 04:18] LABS: TROPONIN I 0.04 ng/ml (0.00-0.05)
[2017-01-22] MEDS ORDERED: FUROSEMIDE 100 MG/10 ML INJECTABLE VIAL IVPB ONE (08:50)
[2017-01-22] MEDS ORDERED: FUROSEMIDE 40 MG/4 ML INJECTABLE VIAL ONE (09:55)
[2017-01-22 12:28] LABS: URINE APPEARANCE CLEAR; URINE BILIRUBIN NEGATIVE (NEGATIVE); URINE BLOOD NEGATIVE (NEGATIVE); URINE COLOR STRAW; URINE GLUCOSE (UA) NEGATIVE (NEGATIVE); URINE KETONE NEGATIVE (NEGATIVE); URINE NITRITE NEGATIVE (NEGATIVE); URINE PROTEIN NEGATIVE (NEGATIVE); URINE UROBILINOGEN NEGATIVE E.U./dl (0.2-1.0)
[2017-01-22 12:35] LABS: URINE LEUK ESTERASE TRACE (NEGATIVE)
[2017-01-22 12:38] LABS: URINE HYALINE CAST 4 /lpf; URINE MUCUS RARE; URINE RBC <1 /hpf (0-3); URINE WBC 2 /hpf (3-5)
[2017-01-22] MEDS ORDERED: ALBUTEROL SO4 0.083% IH SOL 2.5 MG/3 ML VIAL.NEB. NEB PRN (15:20)
[2017-01-22] MEDS ORDERED: D5W IV SCH (15:30)
[2017-01-22] MEDS ORDERED: MILRINONE LACTATE IV SCH (15:30)
[2017-01-22] MEDS ORDERED: [UNRECOGNIZED DRUG - OTHER] IV SCH (15:30)
[2017-01-22] MEDS ORDERED: PATIENT'S OWN MEDICATION (NON-FORMULARY) (Multivitamin [Poly-Vitamin] 1 EACH) PO SCH (15:30)
[2017-01-22] MEDS: POTASSIUM CHLORIDE TABS 20 MEQ TABLET.ER (FP) PO SCH ×2 (16:25→21:14)
[2017-01-22] MEDS: CLOPIDOGREL BISULFATE 75 MG TABLET (FP) PO SCH (16:25)
[2017-01-22] MEDS: FERROUS SO4 325 MG TABLET (FP) PO SCH (16:25)
[2017-01-22] MEDS: RANITIDINE HCL 150 MG TABLET (FP) PO SCH (16:25)
[2017-01-22] MEDS: ALLOPURINOL 100 MG TABLET (FP) PO SCH (16:25)
--- NOTE | 2017-01-22 16:31 | HP ---
DATE OF ADMISSION: 01/22/2017 The patient is a 76-year-old male who presented to the emergency room with increasing shortness of breath of a few days duration. The patient had a recent hospitalization for worsening CHF. He has a past medical history of severe congestive heart failure, on home milrinone drip. He also has a history of atrial fibrillation, severe coronary artery disease, with a pacemaker, 2 stents, heart valve replacement, and episode of myocardial infarction in 2010. He also has a history of COPD, insulin-dependent diabetes mellitus. With these symptoms, the patient brought himself to the emergency room. He goes on and off into congestive heart failure but denies any fever, palpitations, or chest pain. His present medications at home include milrinone drip, torsemide, Zaroxolyn on a p.r.n. basis, warfarin 4 mg daily, ranitidine 75 mg twice a day, potassium 20 mEq 3 times a day, multivitamin, insulin on a p.r.n. basis, ferrous sulfate 325 mg daily, Plavix 75 mg daily, Vitamin D3, Wellbutrin 75 mg daily, Lipitor 40 mg daily, ascorbic acid 1 g daily, 100 mg daily, and albuterol nebulizer treatment. ALLERGIES: SHELLFISH. SOCIAL HISTORY: He is . He has 6 children. He quit smoking in 2010. Prior to that, the patient smoked about half a pack of cigarettes daily. He denies any excess alcohol or drug abuse. Family history is significant for a brother. There is no significant family history. Review of systems is significant for on and off shortness of breath and recurrent episodes of congestive heart failure. He denies any chronic headache, dizziness, chest pains, palpitation, abdominal pain, loss of weight, loss of appetite. PHYSICAL EXAMINATION: Vital Signs: He has a blood pressure of 117/70, pulse rate of 77, respiratory rate of 25, temperature 98.4. Head and Neck: He is not pale, not icteric. JVD is elevated at 4 cm. Heart: Regular rhythm. No murmurs. Lungs: Vesicular breathing. There are a few scattered rales present. Abdomen: Benign. Extremities: Trace edema. Blood work shows a BUN of 52, creatinine of 2, otherwise is within normal limits. A PT/INR is 2.24. CBC is normal. ASSESSMENT AND PLAN: 1. Congestive heart failure. I would hold the torsemide, place him on intravenous Lasix for a few days, and consider Entresto. 2. Atrial fibrillation. 3. Hypertension. 4. Coronary artery disease. Continue present medications. ASHTYN FLORES M.D. [id number]
[2017-01-22] MEDS ORDERED: RANITIDINE HCL 150 MG TABLET (FP) ONE (16:33)
[2017-01-22] MEDS ORDERED: POTASSIUM CHLORIDE TABS 20 MEQ TABLET.ER (FP) PO ONE (16:34)
[2017-01-22] MEDS ORDERED: CLOPIDOGREL BISULFATE 75 MG TABLET (FP) ONE (16:34)
[2017-01-22] MEDS ORDERED: ALLOPURINOL 100 MG TABLET (FP) ONE (16:35)
[2017-01-22] MEDS ORDERED: FERROUS SO4 325 MG TABLET (FP) ONE (16:35)
[2017-01-22] MEDS: CHOLECALCIFEROL (VITAMIN D3) 1,000 UNIT TABLET (FP) PO SCH (16:42)
[2017-01-22] MEDS: ASCORBIC ACID 500 MG TABLET (FP) PO SCH (16:42)
[2017-01-22] MEDS ORDERED: WARFARIN NA 5 MG TABLET (UD) PO SCH (18:00)
[2017-01-22] MEDS ORDERED: MILRINONE 20MG/100ML IVPB - 100 ML IVPB SCH (20:15)
[2017-01-22] MEDS: ATORVASTATIN CA 40 MG TABLET (FP) PO SCH (21:14)
[2017-01-22] MEDS: DOCUSATE SODIUM 100 MG CAPSULE (FP) PO SCH (21:14)
[2017-01-22] MEDS: CARVEDILOL 6.25 MG TABLET (FP) PO SCH (21:14)
[2017-01-23] MEDS: FUROSEMIDE 100 MG/10 ML INJECTABLE VIAL IVPB SCH ×2 (05:58→14:01)
[2017-01-23] MEDS: POTASSIUM CHLORIDE TABS 20 MEQ TABLET.ER (FP) PO SCH ×2 (05:59→14:01)
[2017-01-23] MEDS: ASCORBIC ACID 500 MG TABLET (FP) PO SCH (09:19)
[2017-01-23] MEDS: ALLOPURINOL 100 MG TABLET (FP) PO SCH (09:19)
[2017-01-23] MEDS: DOCUSATE SODIUM 100 MG CAPSULE (FP) PO SCH ×2 (09:19→22:11)
[2017-01-23] MEDS: CLOPIDOGREL BISULFATE 75 MG TABLET (FP) PO SCH (09:19)
[2017-01-23] MEDS: RANITIDINE HCL 150 MG TABLET (FP) PO SCH (09:19)
[2017-01-23] MEDS: MULTIVITAMINS (DAILY MVI) TABLET (FP) PO SCH (09:19)
[2017-01-23] MEDS: buPROPion HCL 75 MG TABLET PO SCH (09:20)
[2017-01-23] MEDS: CHOLECALCIFEROL (VITAMIN D3) 1,000 UNIT TABLET (FP) PO SCH (09:20)
--- NOTE | 2017-01-23 09:29 | EKG ---
Test Reason : Blood Pressure : / mmHG Vent. Rate : 076 BPM Atrial Rate : 061 BPM P-R Int : 000 ms QRS Dur : 204 ms QT Int : 508 ms P-R-T Axes : 000 234 060 degrees QTc Int : 571 ms Ventricular-paced rhythm WITH OCCASIONAL PREMATURE VENTRICULAR COMPLEXES Biventricular pacemaker detected ABNORMAL ECG WHEN COMPARED WITH ECG OF 13-JAN-2017 01:25, NO SIGNIFICANT CHANGE WAS FOUND Confirmed by YASMANY HARVEY, NEREIDA ([id number]) on 01/23/2017 9:28:48 AM Referred By: Confirmed By:NEREIDA JADE MD
[2017-01-23] MEDS ORDERED: MILRINONE 20MG/100ML IVPB - 100 ML IVPB SCH (10:00)
[2017-01-23] MEDS: CARVEDILOL 6.25 MG TABLET (FP) PO SCH ×2 (10:00→22:11)
--- NOTE | 2017-01-23 14:46 | PN ---
Progress Note (short form) - Note Progress Note: SOB is still present but is better No palpitations O/E Vital Signs Period Temp Pulse Resp BP Sys/Orantes Pulse Ox Last 24 Hr 97.5 F-98.9 F 76-81 18-25 117-130/70-86 96-100 Heart regular Lungs clear Abd soft Ext b/l +1 edema Current Medications Albuterol Sulfate (Ventolin 0.083% Nebulizer Soln -) 1 amp NEB Q6H PRN PRN Reason: SHORT OF BREATH/WHEEZING Last Admin: 01/22/17 22:30 Dose: 1 amp Allopurinol (Zyloprim -) 100 mg PO DAILY [facility] Last Admin: 01/23/17 09:19 Dose: 100 mg Ascorbic Acid (Vitamin C -) 1,000 mg PO DAILY [facility] Last Admin: 01/23/17 09:19 Dose: 1,000 mg Atorvastatin Calcium (Lipitor -) 40 mg PO HS [facility] Last Admin: 01/22/17 21:14 Dose: 40 mg Bupropion HCl (Wellbutrin -) 75 mg PO DAILY [facility] Last Admin: 01/23/17 09:20 Dose: 75 mg Carvedilol (Coreg -) 6.25 mg PO BID [facility] Last Admin: 01/23/17 10:00 Dose: Not Given Cholecalciferol (Vitamin D3 -) 1,000 unit PO DAILY [facility] Last Admin: 01/23/17 09:20 Dose: 1,000 unit Clopidogrel Bisulfate (Plavix -) 75 mg PO DAILY [facility] Last Admin: 01/23/17 09:19 Dose: 75 mg Docusate Sodium (Colace -) 100 mg PO BID [facility] Last Admin: 01/23/17 09:19 Dose: 100 mg Ferrous Sulfate (Feosol -) 325 mg PO Q48H [facility] Last Admin: 01/22/17 16:25 Dose: 325 mg Furosemide (Lasix Injection -) 80 mg IVPB BID@0600,1400 [facility] Last Admin: 01/23/17 14:01 Dose: 80 mg Milrinone Lactate/Dextrose (Milrinone 20mg/100ml Ivpb -) 100 mls @ 10.049 mls/ hr IVPB TITR QUINTON; 0.35 MCG/KG/MIN PRN Reason: Protocol Last Admin: 01/22/17 21:16 Dose: 10.049 mls/hr Multivitamins/Minerals/Vitamin C (Tab-A-Vit -) 1 tab PO DAILY [facility] Last Admin: 01/23/17 09:19 Dose: 1 tab Potassium Chloride (K-Dur -) 20 meq PO TID [facility] Last Admin: 01/23/17 14:01 Dose: 20 meq Ranitidine HCl (Zantac -) 75 mg PO DAILY [facility] Last Admin: 01/23/17 09:19 Dose: 75 mg Warfarin Sodium (Coumadin -) 4 mg PO DAILY@1800 [facility] Laboratory Results - last 24 hr 01/22/17 12:20 Ur Specific [place] <= 1.005 A&P 1.CHF with poor LV dysfunction. Cont IV Lasix. Add Entresto and if the Potassium remains stable even a low dose of Aldactone will be of benefit 2.CMP as above 3.A.fib INR OK
[2017-01-23] MEDS ORDERED: SPIRONOLACTONE 25 MG TABLET (FP) PO SCH (15:00)
[2017-01-23] MEDS: WARFARIN NA 2 MG TABLET (UD) PO SCH (17:39)
--- NOTE | 2017-01-23 18:42 | CON.CARD ---
Cardiology Consult (text) - Consultation Consultation Note: CC: sob 76 yo with h/o IDDM, COPD (O2 dependant) HTN, HLD, Afib (on coumadin), CAD s/p CABG 2012, end stage CHF with ICD placement (on milrinone pump), PVD, BPH here with weight gain/sob. Recent discharge for similar symptoms. States that upon returning home last week he weighed 213 lbs which is above his dry weight. Over the next few days his weight came down to 211 lbs on an uptitrated po home regimen of torsemide 80 /40 mg. However sob progressed. Assoc severe orthopnea, le edema and abdominal distension. Patient started on entresto and aldactone here. no palps, dizziness, cp, bleeding, transient neurologic symptoms. Sees dr boyd for cardio. Past Medical History/Surg hx: per hpi, additionally hernia repair Soc hx: Former smoker, no etoh or illicits fam hx: brother with pvd ros: per hpi; no rash, ricks, vision changes, f/c/s, n/v/d, cough, congestion. meds: Ambulatory Orders Allopurinol [Zyloprim -] 100 mg PO DAILY 09/10/15 Atorvastatin Ca [Lipitor] 40 mg PO HS 09/10/15 Carvedilol 6.25 mg PO BID 09/10/15 Docusate Sodium [Colace -] 100 mg PO BID 09/10/15 Insulin NPL/Insulin Lispro [Humalog Mix 75-25 Vial] 0 unit SQ PRN 09/10/15 Milrinone Lactate/D5w [Milrinone 0.2 mg/ml in D5w] 0 mg IV DAILY 09/10/15 Ranitidine [Zantac -] 75 mg PO DAILY 09/10/15 Albuterol 0.083% Nebulizer Jewell [Ventolin 0.083% Nebulizer Soln -] 1 amp NEB Q6H PRN #120 amp 09/14/15 Ferrous Sulfate [Feosol] 325 mg PO Q48H ud 04/23/16 Potassium Chloride [K-Dur -] 20 meq PO TID #90 tablet.er 04/23/16 Warfarin Na [Coumadin -] 4 mg PO DAILY@1800 09/06/16 Bupropion HCl [Wellbutrin -] 75 mg DAILY 09/08/16 Ascorbic Acid [Vitamin C -] 1,000 mg PO DAILY 11/24/16 Cholecalciferol (Vitamin D3) [Vitamin D -] 1,000 unit PO DAILY 11/24/16 Clopidogrel Bisulfate [Plavix -] 75 mg PO DAILY 11/24/16 Multivitamin [Poly-Vitamin] 1 each PO DAILY 11/24/16 Torsemide [Demadex -] 40 mg PO HS #30 tablet 01/16/17 Torsemide [Demadex -] 80 mg PO DAILY@0600 #30 tablet 01/16/17 Current Medications Albuterol Sulfate (Ventolin 0.083% Nebulizer Soln -) 1 amp NEB Q6H PRN PRN Reason: SHORT OF BREATH/WHEEZING Last Admin: 01/22/17 22:30 Dose: 1 amp Allopurinol (Zyloprim -) 100 mg PO DAILY [facility] Last Admin: 01/23/17 09:19 Dose: 100 mg Ascorbic Acid (Vitamin C -) 1,000 mg PO DAILY [facility] Last Admin: 01/23/17 09:19 Dose: 1,000 mg Atorvastatin Calcium (Lipitor -) 40 mg PO HS [facility] Last Admin: 01/22/17 21:14 Dose: 40 mg Bupropion HCl (Wellbutrin -) 75 mg PO DAILY [facility] Last Admin: 01/23/17 09:20 Dose: 75 mg Carvedilol (Coreg -) 6.25 mg PO BID [facility] Last Admin: 01/23/17 10:00 Dose: Not Given Cholecalciferol (Vitamin D3 -) 1,000 unit PO DAILY [facility] Last Admin: 01/23/17 09:20 Dose: 1,000 unit Clopidogrel Bisulfate (Plavix -) 75 mg PO DAILY [facility] Last Admin: 01/23/17 09:19 Dose: 75 mg Docusate Sodium (Colace -) 100 mg PO BID [facility] Last Admin: 01/23/17 09:19 Dose: 100 mg Ferrous Sulfate (Feosol -) 325 mg PO Q48H [facility] Last Admin: 01/22/17 16:25 Dose: 325 mg Furosemide (Lasix Injection -) 80 mg IVPB BID@0600,1400 [facility] Last Admin: 01/23/17 14:01 Dose: 80 mg Milrinone Lactate/Dextrose (Milrinone 20mg/100ml Ivpb -) 100 mls @ 10.049 mls/ hr IVPB TITR [facility] PRN Reason: 0.35 MCG/KG/MIN Multivitamins/Minerals/Vitamin C (Tab-A-Vit -) 1 tab PO DAILY [facility] Last Admin: 01/23/17 09:19 Dose: 1 tab Ranitidine HCl (Zantac -) 75 mg PO DAILY [facility] Last Admin: 01/23/17 09:19 Dose: 75 mg Spironolactone (Aldactone -) 25 mg PO DAILY [facility] Last Admin: 01/23/17 17:39 Dose: 25 mg Warfarin Sodium (Coumadin -) 4 mg PO DAILY@1800 [facility] Last Admin: 01/23/17 17:39 Dose: 4 mg Vital Signs - 24 hr 01/22/17 01/23/17 01/23/17 21:00 02:00 06:34 Temperature 98 F 97.5 F L 97.5 F L Pulse Rate 78 76 76 Respiratory 20 20 20 Rate Blood Pressure 117/86 124/76 124/76 O2 Sat by Pulse 98 Oximetry (%) 01/23/17 01/23/17 01/23/17 09:00 10:00 14:00 Temperature 98.0 F Pulse Rate 82 77 Respiratory 22 20 22 Rate Blood Pressure 109/67 128/75 O2 Sat by Pulse 94 L Oximetry (%) 01/23/17 01/23/17 01/23/17 14:49 18:00 18:18 Temperature 97.7 F 97.7 F Pulse Rate 76 Respiratory 21 Rate Blood Pressure 126/70 O2 Sat by Pulse 97 Oximetry (%) Intake & Output 01/21/17 01/22/17 01/23/17 01/24/17 07:59 07:59 07:59 07:59 Intake Total 550 Output Total 600 450 Balance -50 -450 Weight 211 lb 211 lb 214 lb 2 oz NAD, calm JVD elevated, neck supple RRR nl s1, s2 no m/r/g. bibasilar rales nl effort + bs soft nd, nt 1+ edema of LE. no c/c aaox3 diminished dp/pt no carotid bruits no jaundice diaphoresis no CBC, BMP today 01/22/17 03:44 01/22/17 03:44 Laboratory Tests 01/22/17 03:44 Total Bilirubin 0.6 AST 35 D ALT 37 D Alkaline Phosphatase 180 H Troponin I 0.04 D Albumin 3.2 L Laboratory Tests 11/24/16 01/13/17 01/22/17 13:52 01:36 03:44 B-Natriuretic Peptide 3380.17 H 2012.19 H 4547.49 H ecg: vp lab with occasional pvc's tele: vp lab cxr: congestive changes, similar to priors. echo 05/2016: sev lve, global hk, sev dec lvef, mild rve, nl rv fcn, estefania, mild- mod mr, mv ring, tv ring, mild tr, mild pr, mild phtn, ivc mild dil a/p: 76 year old gentleman with PMH of IDDM, COPD (O2 dependant) HTN, HLD, Afib (on coumadin), CAD s/p CABG 2012, end stage CHF with ICD placement (on milrinone pump), PVD, BPH here with productive cough. chronic end stage systolic heart failure s/p ICD, on home milrinone infusion/ acute exacerbation: - prior reports have dry weight around 211 lbs, but patient and family feel that this is over dry weight. Clinical exam consistent with volume overload - home regimen recently increased on discharge last week to torsemide 80 mg/40 mg. patient takes metolazone prn. - cont milrinone at patient's home maintenance dose (on chronic infusion destination therapy)--0.35 mcg/kg/min. Followed by heart failure at [facility] --> according to their notes patient has declined further advanced therapies. - cont home coreg. Per Dr. boyd's office notes has not been on ALESSANDRA due to blood pressure limitations and fluctuating creatinine. --> would hold entresto and aldactone for now (started here). Consider resuming as outpatient per patient's outpatient CHF and cardiology doctors. - previously diuresed on lasix 80 mg IV BID on prior admits, but repeat weight this evening continues to trend up despite receiving that regimen today. Uptitrate lasix regimen to 100 mg bid. Daily weights, bmp - repeat echo to reassess heart function. patient with frequent recent admits. s/p ICD - recent office icd check with stable function afib - currently rate controlled on coreg - cont coumadin per INR PVD - con't AC, plavix statin. CAD s/p CABG - No anginal symptoms, no signs acs. Con't home ac, plavix, atorvastatin, coreg - CE's neg x 1 HTN: controlled on coreg HLD: con't statin. CKD - stable
[2017-01-23 20:17] LABS: CALCIUM 8.7 mg/dL (8.5-10.1); COCKROFT - GAULT 44.01; CREATININE 1.9 mg/dL (0.7-1.3)
[2017-01-23] MEDS ORDERED: PT OWN MED DRAWER 7, Y5N ONE (21:41)
[2017-01-23] MEDS ORDERED: SACUBITRIL/VALSARTAN 24 MG-26 MG TABLET PO SCH (22:00)
[2017-01-23] MEDS: ATORVASTATIN CA 40 MG TABLET (FP) PO SCH (22:11)
[2017-01-24] MEDS ORDERED: FUROSEMIDE 100 MG/10 ML INJECTABLE VIAL IVPB SCH (06:00)
[2017-01-24 07:47] LABS: PROTHROMBIN TIME (PATIENT) 45.5 SEC (9.98-11.88)
[2017-01-24 07:59] LABS: ALBUMIN 2.9 g/dl (3.4-5.0); CALCIUM 8.5 mg/dL (8.5-10.1)
[2017-01-24 08:02] LABS: BILIRUBIN,TOTAL 0.8 mg/dL (0.2-1.0); COCKROFT - GAULT 49.19; CREATININE 1.7 mg/dL (0.7-1.3); TOT PROT 6.3 g/dl (6.4-8.2)
[2017-01-24 08:14] LABS: INR 4.02 (0.82-1.09)
[2017-01-24] MEDS ORDERED: PT OWN MED DRAWER 7, Y5N ONE (09:06)
--- NOTE | 2017-01-24 10:43 | PN ---
Progress Note (short form) - Note Progress Note: CC: sob S: episode of hypotension this morning. Lasix dose delayed and decreased back to 80 bid. Patient sleepy this morning, states he didn't sleep last night. Was wearing bipap yesterday evening, but currently patient denying using bipap. no cp, palps, dizziness. + sob, orthopnea, le edema, abdominal distension Current Medications Albuterol Sulfate (Ventolin 0.083% Nebulizer Soln -) 1 amp NEB Q6H PRN PRN Reason: SHORT OF BREATH/WHEEZING Last Admin: 01/22/17 22:30 Dose: 1 amp Allopurinol (Zyloprim -) 100 mg PO DAILY [facility] Last Admin: 01/23/17 09:19 Dose: 100 mg Ascorbic Acid (Vitamin C -) 1,000 mg PO DAILY [facility] Last Admin: 01/23/17 09:19 Dose: 1,000 mg Aspirin (Asa -) 81 mg PO DAILY [facility] Atorvastatin Calcium (Lipitor -) 40 mg PO HS [facility] Last Admin: 01/23/17 22:11 Dose: 40 mg Bupropion HCl (Wellbutrin -) 75 mg PO DAILY [facility] Last Admin: 01/23/17 09:20 Dose: 75 mg Carvedilol (Coreg -) 6.25 mg PO BID [facility] Last Admin: 01/23/17 22:11 Dose: 6.25 mg Cholecalciferol (Vitamin D3 -) 1,000 unit PO DAILY [facility] Last Admin: 01/23/17 09:20 Dose: 1,000 unit Clopidogrel Bisulfate (Plavix -) 75 mg PO DAILY [facility] Last Admin: 01/23/17 09:19 Dose: 75 mg Docusate Sodium (Colace -) 100 mg PO BID [facility] Last Admin: 01/23/17 22:11 Dose: 100 mg Ferrous Sulfate (Feosol -) 325 mg PO Q48H [facility] Last Admin: 01/22/17 16:25 Dose: 325 mg Furosemide (Lasix Injection -) 80 mg IVPB BIDLASIX [facility] Milrinone Lactate/Dextrose (Milrinone 20mg/100ml Ivpb -) 100 mls @ 10.049 mls/ hr IVPB TITR [facility] PRN Reason: 0.35 MCG/KG/MIN Multivitamins/Minerals/Vitamin C (Tab-A-Vit -) 1 tab PO DAILY [facility] Last Admin: 01/23/17 09:19 Dose: 1 tab Ranitidine HCl (Zantac -) 75 mg PO DAILY [facility] Last Admin: 01/23/17 09:19 Dose: 75 mg Warfarin Sodium (Coumadin -) 4 mg PO DAILY@1800 [facility] Last Admin: 01/23/17 17:39 Dose: 4 mg Vital Signs - 24 hr 01/23/17 01/23/17 01/23/17 14:00 14:49 18:00 Temperature 97.7 F 97.7 F Pulse Rate 77 76 Respiratory 22 21 Rate Blood Pressure 128/75 126/70 O2 Sat by Pulse Oximetry (%) 01/23/17 01/23/17 01/23/17 18:18 20:36 22:00 Temperature 98.0 F Pulse Rate 76 Respiratory 20 18 Rate Blood Pressure 124/78 O2 Sat by Pulse 97 98 Oximetry (%) 01/24/17 01/24/17 02:00 06:00 Temperature 97.6 F 98.2 F Pulse Rate 76 77 Respiratory 20 20 Rate Blood Pressure 111/74 85/55 O2 Sat by Pulse Oximetry (%) Intake & Output 01/22/17 01/23/17 01/24/17 01/25/17 07:59 07:59 07:59 07:59 Intake Total 550 220 Output Total 600 450 Balance -50 -230 Weight 211 lb 214 lb 213 lb 6.4 oz NAD, calm sleepy JVD elevated, neck supple RRR nl s1, s2 no m/r/g. bibasilar rales nl effort + bs soft nd, nt 1+ edema of LE. 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 echo 05/2016: sev lve, global hk, sev dec lvef, mild rve, nl rv fcn, estefania, mild- mod mr, mv ring, tv ring, mild tr, mild pr, mild phtn, ivc mild dil a/p: 76 yo with h/o IDDM, COPD (O2 dependant) HTN, HLD, Afib (on coumadin), CAD s/p CABG 2012, end stage CHF with ICD placement (on milrinone pump), PVD, BPH here with weight gain/sob. chronic end stage systolic heart failure s/p ICD, on home milrinone infusion/ acute exacerbation: - prior reports have dry weight around 211 lbs, but patient and family feel that this is over dry weight. Clinical exam consistent with volume overload - home regimen recently increased on discharge last week to torsemide 80 mg/40 mg. patient takes metolazone prn. - cont milrinone at patient's home maintenance dose (on chronic infusion destination therapy)--0.35 mcg/kg/min. Followed by heart failure at [facility] --> according to their notes patient has declined further advanced therapies. - cont home coreg. Per Dr. boyd's office notes has not been on ALESSANDRA due to blood pressure limitations and fluctuating creatinine. --> would hold entresto and aldactone for now (started here). Consider resuming as outpatient per patient's outpatient CHF and cardiology doctors. - 01/23 previously diuresed on lasix 80 mg IV BID on prior admits, but repeat weight this evening continues to trend up despite receiving that regimen today. Uptitrate lasix regimen to 100 mg bid. - 01/24: uptitration of lasix limited today due to hypotension this morning ( received entresto, aldactone yesterday). Will try to uptitrate regimen later today if bp improves. - Daily weights, bmp, intake/outake - repeat echo to reassess heart function. patient with frequent recent admits. s/p ICD - recent office icd check with stable function afib - currently rate controlled on coreg - cont coumadin per INR PVD - con't AC, plavix statin. CAD s/p CABG - No anginal symptoms, no signs acs. Con't home ac, plavix, atorvastatin, coreg - CE's neg x 1 MARGAUX? wears bipap qhs at home - con't nighttime bipap HTN: controlled on coreg HLD: con't statin. CKD - stable
[2017-01-24] MEDS ORDERED: FUROSEMIDE 40 MG/4 ML INJECTABLE VIAL ONE (10:48)
[2017-01-24] MEDS: MILRINONE 20MG/100ML IVPB - 100 ML IVPB SCH ×2 (10:49→22:10)
[2017-01-24] MEDS: FUROSEMIDE 100 MG/10 ML INJECTABLE VIAL IVPB SCH ×3 (10:50→16:13)
[2017-01-24] MEDS: ASCORBIC ACID 500 MG TABLET (FP) PO SCH (10:51)
[2017-01-24] MEDS: CARVEDILOL 6.25 MG TABLET (FP) PO SCH ×2 (10:51→22:11)
[2017-01-24] MEDS: buPROPion HCL 75 MG TABLET PO SCH (10:51)
[2017-01-24] MEDS: DOCUSATE SODIUM 100 MG CAPSULE (FP) PO SCH ×2 (10:51→22:10)
[2017-01-24] MEDS: ASPIRIN 81 MG CHEWABLE TABLETS PO SCH (10:51)
[2017-01-24] MEDS: CLOPIDOGREL BISULFATE 75 MG TABLET (FP) PO SCH (10:51)
[2017-01-24] MEDS: CHOLECALCIFEROL (VITAMIN D3) 1,000 UNIT TABLET (FP) PO SCH (10:51)
[2017-01-24] MEDS: MULTIVITAMINS (DAILY MVI) TABLET (FP) PO SCH (10:52)
[2017-01-24] MEDS: ALLOPURINOL 100 MG TABLET (FP) PO SCH (10:52)
[2017-01-24] MEDS: RANITIDINE HCL 150 MG TABLET (FP) PO SCH (11:29)
--- NOTE | 2017-01-24 12:07 | PN ---
Progress Note, Physician Chief Complaint: Mr Perez says he feels the same. He is still significantly short of breath. Denies cp or n/v. - Current Medication List Current Medications: Active Medications Albuterol Sulfate (Ventolin 0.083% Nebulizer Soln -) 1 amp NEB Q6H PRN PRN Reason: SHORT OF BREATH/WHEEZING Last Admin: 01/22/17 22:30 Dose: 1 amp Allopurinol (Zyloprim -) 100 mg PO DAILY [facility] Last Admin: 01/24/17 10:52 Dose: 100 mg Ascorbic Acid (Vitamin C -) 1,000 mg PO DAILY [facility] Last Admin: 01/24/17 10:51 Dose: 1,000 mg Aspirin (Asa -) 81 mg PO DAILY [facility] Last Admin: 01/24/17 10:51 Dose: 81 mg Atorvastatin Calcium (Lipitor -) 40 mg PO HS [facility] Last Admin: 01/23/17 22:11 Dose: 40 mg Bupropion HCl (Wellbutrin -) 75 mg PO DAILY [facility] Last Admin: 01/24/17 10:51 Dose: 75 mg Carvedilol (Coreg -) 6.25 mg PO BID [facility] Last Admin: 01/24/17 10:51 Dose: 6.25 mg Cholecalciferol (Vitamin D3 -) 1,000 unit PO DAILY [facility] Last Admin: 01/24/17 10:51 Dose: 1,000 unit Clopidogrel Bisulfate (Plavix -) 75 mg PO DAILY [facility] Last Admin: 01/24/17 10:51 Dose: 75 mg Docusate Sodium (Colace -) 100 mg PO BID [facility] Last Admin: 01/24/17 10:51 Dose: 100 mg Ferrous Sulfate (Feosol -) 325 mg PO Q48H [facility] Last Admin: 01/22/17 16:25 Dose: 325 mg Furosemide (Lasix Injection -) 80 mg IVPB BIDLASIX [facility] Last Admin: 01/24/17 10:50 Dose: 80 mg Milrinone Lactate/Dextrose (Milrinone 20mg/100ml Ivpb -) 100 mls @ 10.049 mls/ hr IVPB TITR [facility] PRN Reason: 0.35 MCG/KG/MIN Last Admin: 01/24/17 10:49 Dose: 10.049 mls/hr Insulin Aspart (Novolog Vial) 0 units SQ ACHS [facility] PRN Reason: Protocol Multivitamins/Minerals/Vitamin C (Tab-A-Vit -) 1 tab PO DAILY [facility] Last Admin: 01/24/17 10:52 Dose: 1 tab Ranitidine HCl (Zantac -) 75 mg PO DAILY [facility] Last Admin: 01/24/17 11:29 Dose: Not Given Warfarin Sodium (Coumadin -) 4 mg PO DAILY@1800 [facility] Last Admin: 01/23/17 17:39 Dose: 4 mg - Objective Vital Signs: Vital Signs Temperature 98 F 01/24/17 10:00 Pulse Rate 73 01/24/17 11:49 Respiratory Rate 20 01/24/17 10:00 Blood Pressure 102/60 01/24/17 10:00 O2 Sat by Pulse Oximetry (%) 92 L 01/24/17 11:49 Constitutional: Yes: Well Nourished, No Distress, Calm Cardiovascular: Yes: Regular Rate and Rhythm. No: Gallop, Murmur, Rub Respiratory: Yes: Regular, On Nasal O2, Rales. No: Rhonchi, Wheezes Gastrointestinal: Yes: Normal Bowel Sounds, Soft. No: Distention, Tenderness Extremities: Yes: WNL Edema: Yes Edema: LLE: 2+, RLE: 2+ Labs: CBC, BMP 01/24/17 05:35 INR, PTT INR 4.02 (0.82-1.09) H* D 01/24/17 05:35 Problem List - Problems (1) CHF (congestive heart failure) Assessment/Plan: -end stage, on chronic milrinone -case d/w cardiology -placed on IV lasix for diuresis -unable to tolerate entresto or aldactone secondary to hypotension Code(s): I50.9 - HEART FAILURE, UNSPECIFIED Qualifiers: Congestive heart failure type: combined Congestive heart failure chronicity: acute on chronic Qualified Code(s): I50.43 - Acute on chronic combined systolic (congestive) and diastolic (congestive) heart failure (2) Acute and chronic respiratory failure ([id number]) Assessment/Plan: -Dr Colon notes patient is more somnolent than usual -? hypercapnea -will obtain ABG and oxygen saturation -if hypercapneic, will place on bipap and consult pulmonary Code(s): J96.20 - ACUTE AND CHR RESP FAILURE, UNSP W HYPOXIA OR HYPERCAPNIA Qualifiers: Respiratory failure complication: hypoxia Qualified Code(s): J96.21 - Acute and chronic respiratory failure with hypoxia (3) CAD (coronary artery disease) Assessment/Plan: -at baseline -no chest pain -cardiology following -continue current management Code(s): I25.10 - ATHSCL HEART DISEASE OF [place] CORONARY ARTERY W/O ANG PCTRS (4) Diabetes Assessment/Plan: -diabetic diet -FSBS and SSI Code(s): E11.9 - TYPE 2 DIABETES MELLITUS WITHOUT COMPLICATIONS Qualifiers: Diabetes mellitus type: type 2 Diabetes mellitus complication status: with kidney complications Diabetes mellitus complication detail: with chronic kidney disease Chronic kidney disease stage: stage 4 (severe) Qualified Code(s): - (5) AICD (automatic cardioverter/defibrillator) present Assessment/Plan: -on chronic coumadin -hold, INR elevated Code(s): Z95.810 - PRESENCE OF AUTOMATIC (IMPLANTABLE) CARDIAC DEFIBRILLATOR (6) CKD (chronic kidney disease) Assessment/Plan: -improving with diuresis -aspect of cardiorenal syndrome -continue to monitor Code(s): N18.9 - CHRONIC KIDNEY DISEASE, UNSPECIFIED Qualifiers: Chronic kidney disease stage: stage 4 (severe) Qualified Code(s): N18.4 - Chronic kidney disease, stage 4 (severe) (7) COPD (chronic obstructive pulmonary disease) Assessment/Plan: -does not appear in exacerbation -however will check ABG, may be hypercapneic -if hypercapneic, suspect combination of COPD and CHF exacerbation -continue current management -consider pulmonary consult pending ABG Code(s): J44.9 - CHRONIC OBSTRUCTIVE PULMONARY DISEASE, UNSPECIFIED Qualified Code(s): -
[2017-01-24 12:37] LABS: ALLENS TEST POSITIVE; ART PUNCT SITE RIGHT RADIAL; ARTERIAL BLD GAS O2 SATURATION 89.6 % (90-98.9); ARTERIAL BLOOD GAS BASE EXCESS 4.4 meq/l (-2-2); ARTERIAL BLOOD GAS PO2 59.4 mmHg (70-100); ARTERIAL BLOOD GAS pH 7.38 (7.35-7.45); LPM/O2% 3L; PT. ON O2? YES; TYPE OF O2 N/C
[2017-01-24] MEDS: FERROUS SO4 325 MG TABLET (FP) PO SCH (16:00)
[2017-01-24] MEDS: INSULIN (NOVOLOG) ASPART 100 UNITS/ML 10ML VIAL SQ SCH ×2 (16:14→22:13)
--- NOTE | 2017-01-24 16:47 | CON.PULM ---
Consult Consult Specialty:: PULM/CCM Referred by:: ELIER Reason for Consultation:: SOB / abnormal ABG - History of Present Illness Chief Complaint: SOB History of Present Illness: 76 M, with listed medical history of end stage on the continuous milrinone pump for almost 3 years, A fib, CAD, S/P PCI x 2, valve replacement, AMI, COPD from previous smoking, and IDDM. Admitted via the ER due to shortness of breath for a week. No travel history or sick contacts. No fever or chills. No night sweats or hemoptysis. ABG : Compensated respiratory acidosis. - History Source History Provided By: Patient Limitations to Obtaining History: No Limitations - Past Medical History Cardio/Vascular: Yes: AFIB, CAD, CHF, HTN, Hyperlipdemia, [place], Pulmonary Hypertension, Other (AICD placed) Pulmonary: Yes: COPD, O2 Dependent Renal/: Yes: Renal Inusuff, BPH Endocrine: Yes: Diabetes Mellitus - Past Surgical History Past Surgical History: Yes: AICD, CABG, Hernia Repair - Alcohol/Substance Use Hx Alcohol Use: No - Smoking History Smoking history: Former smoker Have you smoked in the past 12 months: No Aproximately how many cigarettes per day: 40 If you are a former smoker, when did you quit?: 2010 - Social History Usual Living Arrangement: With Spouse ADL: Independent History of Recent Travel: No Home Medications - Allergies Allergies/Adverse Reactions: Allergies Allergy/AdvReac Type Severity Reaction Status Date / Time No Known Drug Allergies Allergy Verified 01/22/17 03:51 shellfish derived Allergy Verified 01/22/17 03:51 - Home Medications Home Medications: Ambulatory Orders Allopurinol [Zyloprim -] 100 mg PO DAILY 09/10/15 Atorvastatin Ca [Lipitor] 40 mg PO HS 09/10/15 Carvedilol 6.25 mg PO BID 09/10/15 Docusate Sodium [Colace -] 100 mg PO BID 09/10/15 Insulin NPL/Insulin Lispro [Humalog Mix 75-25 Vial] 0 unit SQ PRN 09/10/15 Milrinone Lactate/D5w [Milrinone 0.2 mg/ml in D5w] 0 mg IV DAILY 09/10/15 Ranitidine [Zantac -] 75 mg PO DAILY 09/10/15 Albuterol 0.083% Nebulizer [place] [Ventolin 0.083% Nebulizer Soln -] 1 amp NEB Q6H PRN #120 amp 09/14/15 Ferrous Sulfate [Feosol] 325 mg PO Q48H ud 04/23/16 Potassium Chloride [K-Dur -] 20 meq PO TID #90 tablet.er 04/23/16 Warfarin Na [Coumadin -] 4 mg PO DAILY@1800 09/06/16 Bupropion HCl [Wellbutrin -] 75 mg DAILY 09/08/16 Ascorbic Acid [Vitamin C -] 1,000 mg PO DAILY 11/24/16 Cholecalciferol (Vitamin D3) [Vitamin D -] 1,000 unit PO DAILY 11/24/16 Clopidogrel Bisulfate [Plavix -] 75 mg PO DAILY 11/24/16 Multivitamin [Poly-Vitamin] 1 each PO DAILY 11/24/16 Torsemide [Demadex -] 40 mg PO HS #30 tablet 01/16/17 Torsemide [Demadex -] 80 mg PO DAILY@0600 #30 tablet 01/16/17 Family Disease History - Family Disease History Family Disease History: Diabetes: Father, Heart Disease: Father Review of Systems - Review of Systems Constitutional: reports: Lethargy, Malaise, Weakness. denies: Chills, Fever, Loss of Appetite, Night Sweats, Unintentional Wgt. Loss Eyes: reports: No Symptoms HENT: reports: No Symptoms Neck: reports: No Symptoms Cardiovascular: reports: Edema, Shortness of Breath. denies: Chest Pain, Palpitations Respiratory: reports: Cough, Orthopnea, PND, SOB, SOB on Exertion. denies: Hemoptysis, Snoring, Wheezing Gastrointestinal: reports: Dysphagia Genitourinary: reports: No Symptoms Musculoskeletal: reports: No Symptoms Integumentary: reports: No Symptoms Neurological: reports: No Symptoms Endocrine: reports: No Symptoms Hematology/Lymphatic: reports: No Symptoms Psychiatric: reports: No Symptoms Physical Exam Vital Sings: Vital Signs Temperature 98.4 F 01/24/17 14:00 Pulse Rate 75 01/24/17 14:00 Respiratory Rate 20 01/24/17 14:00 Blood Pressure 103/67 01/24/17 14:00 O2 Sat by Pulse Oximetry (%) 92 L 01/24/17 11:49 Constitutional: Yes: No Distress, Obese Eyes: Yes: Conjunctiva Clear, EOM Intact HENT: Yes: Atraumatic, Normocephalic Neck: Yes: Trachea Midline Cardiovascular: Yes: Pulse Irregular, JVD, Murmur Respiratory: Yes: Accessory Muscle Use, Cough, Diminished, On Venti-Mask, Rales , Tachypnea. No: Stridor, Wheezes ...Inspection: Yes: WNL ...Clubbing: No Gastrointestinal: Yes: Normal Bowel Sounds, Soft, Abdomen, Obese Renal/: Yes: WNL Musculoskeletal: Yes: WNL Extremities: Yes: WNL Edema: Yes Peripheral Pulses WNL: Yes Integumentary: Yes: Venous Stasis Changes Neurological: Yes: Alert, Oriented ...Motor Strength: WNL Psychiatric: Yes: WNL, Alert, Oriented Labs: CBC, BMP 01/24/17 05:35 ABG Results ABG pH 7.38 (7.35-7.45) 01/24/17 12:35 ABG pCO2 at Pt Temp 51.8 mmHg (35-45) H 01/24/17 12:35 ABG pO2 at Pt Temp 59.4 mmHg (70-100) L D 01/24/17 12:35 ABG HCO3 30.0 meq/L (22-26) H 01/24/17 12:35 ABG O2 Sat (Measured) 89.6 % (90-98.9) L 01/24/17 12:35 ABG O2 Content 13.9 % vol (15-22) L 01/24/17 12:35 ABG Base Excess 4.4 meq/l (-2-2) H 01/24/17 12:35 Imaging - Results Chest X-ray: Report Reviewed, Image Reviewed Problem List - Problems (1) CAD (coronary artery disease) Code(s): I25.10 - ATHSCL HEART DISEASE OF [place] CORONARY ARTERY W/O ANG PCTRS (2) CHF (congestive heart failure) Code(s): I50.9 - HEART FAILURE, UNSPECIFIED Qualifiers: Congestive heart failure type: combined Congestive heart failure chronicity: acute on chronic Qualified Code(s): I50.43 - Acute on chronic combined systolic (congestive) and diastolic (congestive) heart failure (3) Chest pain Code(s): R07.9 - CHEST PAIN, UNSPECIFIED (4) Diabetes Code(s): E11.9 - TYPE 2 DIABETES MELLITUS WITHOUT COMPLICATIONS Qualifiers: Diabetes mellitus type: type 2 Diabetes mellitus complication status: with kidney complications Diabetes mellitus complication detail: with chronic kidney disease Chronic kidney disease stage: stage 4 (severe) (5) Presence of permanent cardiac pacemaker Code(s): Z95.0 - PRESENCE OF CARDIAC PACEMAKER (6) Renal insufficiency Code(s): N28.9 - DISORDER OF KIDNEY AND URETER, UNSPECIFIED (7) AICD (automatic cardioverter/defibrillator) present Code(s): Z95.810 - PRESENCE OF AUTOMATIC (IMPLANTABLE) CARDIAC DEFIBRILLATOR (8) Acute and chronic respiratory failure (piduo-[id number]-enmxooh) Code(s): J96.20 - ACUTE AND CHR RESP FAILURE, UNSP W HYPOXIA OR HYPERCAPNIA Qualifiers: Respiratory failure complication: hypoxia Qualified Code(s): J96.21 - Acute and chronic respiratory failure with hypoxia (9) Atrial fibrillation Code(s): I48.91 - UNSPECIFIED ATRIAL FIBRILLATION Qualifiers: Atrial fibrillation type: chronic Qualified Code(s): I48.2 - Chronic atrial fibrillation (10) CKD (chronic kidney disease) Code(s): N18.9 - CHRONIC KIDNEY DISEASE, UNSPECIFIED Qualifiers: Chronic kidney disease stage: stage 4 (severe) Qualified Code(s): N18.4 - Chronic kidney disease, stage 4 (severe) (11) COPD (chronic obstructive pulmonary disease) Code(s): J44.9 - CHRONIC OBSTRUCTIVE PULMONARY DISEASE, UNSPECIFIED (12) Cardiomyopathy Code(s): I42.9 - CARDIOMYOPATHY, UNSPECIFIED (13) Diabetes mellitus, insulin dependent (IDDM), uncontrolled Code(s): E10.65 - TYPE 1 DIABETES MELLITUS WITH HYPERGLYCEMIA (14) Dyspnea on exertion Code(s): R06.09 - OTHER FORMS OF DYSPNEA Assessment/Plan PLAN: Suspect chronic hypercapnia to possible CheyneSR due to advanced heart failure. Patient may also have a component of hypercapnia due to obesity hypoventilation +/- Obstructive airways disease Will order empiric NIPPV orders for now Would likely benefit from Ruling Out Sleep disordered breathing as nocturnal NIPPV may help his overall condition VM O2 as needed Patient on continuous Milrinone Diuresis as BP allows Do not suspect AE of COPD at this time Will follow Thank you. Dr Marie
[2017-01-24] MEDS ORDERED: ACETAMINOPHEN 325 MG TABLET (FP) PO PRN (18:27)
[2017-01-24] MEDS: ATORVASTATIN CA 40 MG TABLET (FP) PO SCH (22:11)
[2017-01-25] MEDS: FUROSEMIDE 100 MG/10 ML INJECTABLE VIAL IVPB SCH ×2 (05:57→15:23)
[2017-01-25] MEDS: INSULIN (NOVOLOG) ASPART 100 UNITS/ML 10ML VIAL SQ SCH ×4 (06:02→22:27)
[2017-01-25 07:33] LABS: BASOPHIL 0.4 % (0-2.0); EOSINOPHIL 2.9 % (0-4.5); MCH 26.3 pg (25.7-33.7); MCHC 31.6 g/dl (32.0-35.9); NEUTROPHILS 71.4 % (42.8-82.8); PLATELET COUNT 203 K/MM3 (134-434); RDW 18.6 % (11.9-15.9); WHITE BLOOD COUNT 7.3 K/mm3 (4.0-10.0)
[2017-01-25 07:51] LABS: INR 3.86 (0.82-1.09); PROTHROMBIN TIME (PATIENT) 43.6 SEC (9.98-11.88)
[2017-01-25 07:54] LABS: CALCIUM 8.7 mg/dL (8.5-10.1); CREATININE 1.8 mg/dL (0.7-1.3); MAGNESIUM 2.8 mg/dL (1.8-2.4); PHOSPHOROUS 4.1 mg/dL (2.5-4.9)
[2017-01-25 08:16] LABS: COCKROFT - GAULT 47.04
--- NOTE | 2017-01-25 10:56 | PN ---
Progress Note, Physician History of Present Illness: pulmonary alert,feeling better,less dyspneic,sitting up in bed - Current Medication List Current Medications: Active Medications Acetaminophen (Tylenol -) 650 mg PO Q6H PRN PRN Reason: PAIN Last Admin: 01/24/17 18:35 Dose: 650 mg Albuterol Sulfate (Ventolin 0.083% Nebulizer Soln -) 1 amp NEB Q6H PRN PRN Reason: SHORT OF BREATH/WHEEZING Last Admin: 01/22/17 22:30 Dose: 1 amp Allopurinol (Zyloprim -) 100 mg PO DAILY [facility] Last Admin: 01/24/17 10:52 Dose: 100 mg Ascorbic Acid (Vitamin C -) 1,000 mg PO DAILY [facility] Last Admin: 01/24/17 10:51 Dose: 1,000 mg Aspirin (Asa -) 81 mg PO DAILY [facility] Last Admin: 01/24/17 10:51 Dose: 81 mg Atorvastatin Calcium (Lipitor -) 40 mg PO HS [facility] Last Admin: 01/24/17 22:11 Dose: 40 mg Bupropion HCl (Wellbutrin -) 75 mg PO DAILY [facility] Last Admin: 01/24/17 10:51 Dose: 75 mg Carvedilol (Coreg -) 6.25 mg PO BID [facility] Last Admin: 01/24/17 22:11 Dose: 6.25 mg Cholecalciferol (Vitamin D3 -) 1,000 unit PO DAILY [facility] Last Admin: 01/24/17 10:51 Dose: 1,000 unit Clopidogrel Bisulfate (Plavix -) 75 mg PO DAILY [facility] Last Admin: 01/24/17 10:51 Dose: 75 mg Docusate Sodium (Colace -) 100 mg PO BID [facility] Last Admin: 01/24/17 22:10 Dose: 100 mg Ferrous Sulfate (Feosol -) 325 mg PO Q48H [facility] Last Admin: 01/24/17 16:00 Dose: 325 mg Furosemide (Lasix Injection -) 100 mg IVPB BIDLASIX [facility] Last Admin: 01/25/17 05:57 Dose: 100 mg Milrinone Lactate/Dextrose (Milrinone 20mg/100ml Ivpb -) 100 mls @ 10.049 mls/ hr IVPB TITR [facility] PRN Reason: 0.35 MCG/KG/MIN Last Admin: 01/24/17 22:10 Dose: 10.049 mls/hr Insulin Aspart (Novolog Vial) 0 units SQ ACHS [facility] PRN Reason: Protocol Last Admin: 01/25/17 06:02 Dose: Not Given Metolazone (Zaroxolyn -) 5 mg PO ONCE ONE Stop: 01/25/17 13:31 Multivitamins/Minerals/Vitamin C (Tab-A-Vit -) 1 tab PO DAILY [facility] Last Admin: 01/24/17 10:52 Dose: 1 tab Ranitidine HCl (Zantac -) 75 mg PO DAILY [facility] Last Admin: 01/24/17 11:29 Dose: Not Given Warfarin Sodium (Coumadin -) 4 mg PO DAILY@1800 [facility] Last Admin: 01/23/17 17:39 Dose: 4 mg - Objective Vital Signs: Vital Signs Temperature 97.9 F 01/25/17 05:35 Pulse Rate 89 01/25/17 09:45 Respiratory Rate 20 01/25/17 05:35 Blood Pressure 117/65 01/25/17 05:35 O2 Sat by Pulse Oximetry (%) 99 01/25/17 09:45 Constitutional: Yes: Well Nourished, Calm Eyes: Yes: WNL HENT: Yes: WNL Neck: Yes: WNL Cardiovascular: Yes: Pulse Irregular, S1, S2 Respiratory: Yes: Rales (few bibasilar rales) Gastrointestinal: Yes: Normal Bowel Sounds, Soft Extremities: Yes: WNL Edema: Yes Labs: CBC, BMP 01/25/17 05:35 01/25/17 05:35 INR, PTT INR 3.86 (0.82-1.09) H 01/25/17 05:35 Assessment/Plan Problem List - Problems (1) CAD (coronary artery disease) Code(s): I25.10 - ATHSCL HEART DISEASE OF [place] CORONARY ARTERY W/O ANG PCTRS (2) CHF (congestive heart failure) Code(s): I50.9 - HEART FAILURE, UNSPECIFIED Qualifiers: Congestive heart failure type: combined Congestive heart failure chronicity: acute on chronic Qualified Code(s): I50.43 - Acute on chronic combined systolic (congestive) and diastolic (congestive) heart failure (3) Chest pain Code(s): R07.9 - CHEST PAIN, UNSPECIFIED (4) Diabetes Code(s): E11.9 - TYPE 2 DIABETES MELLITUS WITHOUT COMPLICATIONS Qualifiers: Diabetes mellitus type: type 2 Diabetes mellitus complication status: with kidney complications Diabetes mellitus complication detail: with chronic kidney disease Chronic kidney disease stage: stage 4 (severe) (5) Presence of permanent cardiac pacemaker Code(s): Z95.0 - PRESENCE OF CARDIAC PACEMAKER (6) Renal insufficiency Code(s): N28.9 - DISORDER OF KIDNEY AND URETER, UNSPECIFIED (7) AICD (automatic cardioverter/defibrillator) present Code(s): Z95.810 - PRESENCE OF AUTOMATIC (IMPLANTABLE) CARDIAC DEFIBRILLATOR (8) Acute and chronic respiratory failure ([id number]) Code(s): J96.20 - ACUTE AND CHR RESP FAILURE, UNSP W HYPOXIA OR HYPERCAPNIA Qualifiers: Respiratory failure complication: hypoxia Qualified Code(s): J96.21 - Acute and chronic respiratory failure with hypoxia (9) Atrial fibrillation Code(s): I48.91 - UNSPECIFIED ATRIAL FIBRILLATION Qualifiers: Atrial fibrillation type: chronic Qualified Code(s): I48.2 - Chronic atrial fibrillation (10) CKD (chronic kidney disease) Code(s): N18.9 - CHRONIC KIDNEY DISEASE, UNSPECIFIED Qualifiers: Chronic kidney disease stage: stage 4 (severe) Qualified Code(s): N18.4 - Chronic kidney disease, stage 4 (severe) (11) COPD (chronic obstructive pulmonary disease) Code(s): J44.9 - CHRONIC OBSTRUCTIVE PULMONARY DISEASE, UNSPECIFIED (12) Cardiomyopathy Code(s): I42.9 - CARDIOMYOPATHY, UNSPECIFIED (13) Diabetes mellitus, insulin dependent (IDDM), uncontrolled Code(s): E10.65 - TYPE 1 DIABETES MELLITUS WITH HYPERGLYCEMIA (14) Dyspnea on exertion Code(s): R06.09 - OTHER FORMS OF DYSPNEA Assessment/Plan Acute on chronic hypoxemic/hypercapneic respiratory failure Chf Cardiomyopathy Copd DM A-fib Bipap prn VM O2 as needed Milrinone Diuresis Inhaled bronchodilators Daily wts' monitor lytes,renal function f/u abg f/u chest x-ray sleep studies outpatient DR MONTGOMERY
--- NOTE | 2017-01-25 11:07 | PN ---
Progress Note (short form) - Note Progress Note: CC: sob, chf S: still with sob, le edema, no cp/palps/dizzy/loc. no cigs o: Vital Signs Temp 97.9 F 01/25/17 05:35 Pulse 89 01/25/17 09:45 Resp 20 01/25/17 05:35 BP 117/65 01/25/17 05:35 Pulse Ox 99 01/25/17 09:45 Intake & Output 01/24/17 01/24/17 01/25/17 11:59 23:59 11:59 Intake Total 120 480 200 Output Total 650 Balance 120 -170 200 Weight 213 lb 6.4 oz 216 lb 12.8 oz Intake: IV 120 120 Milrinone 20Mg/100Ml Ivpb 120 120 - 100 ml @ 0.35 MCG/KG/ MIN 10.049 mls/hr IVPB TITR [facility] Rx#:[id number] IVPB 50 Oral 480 30 Output: Urine 650 Void 650 Other: Voiding Method Urinal Urinal Toilet # Unmeasured Voids Void 2 Weight Measurement Method Standing Scale Standing Scale NAD JVD elevated, neck supple RRR nl s1, s2 no m/r/g. bibasilar rales nl effort + bs soft nd, nt 1+ edema of LE. no c/c aaox3 pos dp/pt no jaundice diaphoresis Laboratory Last Values WBC 7.3 K/mm3 (4.0-10.0) 01/25/17 05:35 RBC 4.34 M/mm3 (4.00-5.60) 01/25/17 05:35 Hgb 11.4 GM/dL (11.7-16.9) L 01/25/17 05:35 Hct 36.0 % (35.4-49) 01/25/17 05:35 MCV 83.0 fl (80-96) 01/25/17 05:35 MCHC 31.6 g/dl (32.0-35.9) L 01/25/17 05:35 RDW 18.6 % (11.9-15.9) H 01/25/17 05:35 Plt Count 203 K/MM3 (134-434) 01/25/17 05:35 MPV 9.0 fl (7.5-11.1) 01/25/17 05:35 Neutrophils % 71.4 % (42.8-82.8) 01/25/17 05:35 Lymphocytes % 15.6 % (8-40) D 01/25/17 05:35 Monocytes % 9.7 % (3.8-10.2) 01/25/17 05:35 Eosinophils % 2.9 % (0-4.5) 01/25/17 05:35 Basophils % 0.4 % (0-2.0) 01/25/17 05:35 INR 3.86 (0.82-1.09) H 01/25/17 05:35 Puncture Site Right radial 01/24/17 12:35 ABG pH 7.38 (7.35-7.45) 01/24/17 12:35 ABG pCO2 at Pt Temp 51.8 mmHg (35-45) H 01/24/17 12:35 ABG pO2 at Pt Temp 59.4 mmHg (70-100) L D 01/24/17 12:35 ABG HCO3 30.0 meq/L (22-26) H 01/24/17 12:35 ABG O2 Sat (Measured) 89.6 % (90-98.9) L 01/24/17 12:35 ABG O2 Content 13.9 % vol (15-22) L 01/24/17 12:35 ABG Base Excess 4.4 meq/l (-2-2) H 01/24/17 12:35 Shahab Test Positive 01/24/17 12:35 O2 Delivery Device N/c 01/24/17 12:35 Oxygen Flow Rate 3l 01/24/17 12:35 PEEP 0.0 cmH2O 01/24/17 12:35 Sodium 141 mmol/L (136-145) 01/25/17 05:35 Potassium 4.1 mmol/L (3.5-5.1) 01/25/17 05:35 Chloride 103 mmol/L (98-107) 01/25/17 05:35 Carbon Dioxide 31 mmol/L (21-32) 01/25/17 05:35 Anion Gap 7 (8-16) L 01/25/17 05:35 BUN 48 mg/dL (7-18) H 01/25/17 05:35 Creatinine 1.8 mg/dL (0.7-1.3) H 01/25/17 05:35 Creat Clearance w eGFR 39.18 (>60) 01/24/17 05:35 POC Glucometer 154 UNITS (()) 01/25/17 05:33 Random Glucose 143 mg/dL (74-106) H D 01/25/17 05:35 Calcium 8.7 mg/dL (8.5-10.1) 01/25/17 05:35 Phosphorus 4.1 mg/dL (2.5-4.9) D 01/25/17 05:35 Magnesium 2.8 mg/dL (1.8-2.4) H 01/25/17 05:35 Total Bilirubin 0.8 mg/dL (0.2-1.0) D 01/24/17 05:35 AST 20 U/L (15-37) D 01/24/17 05:35 ALT 29 U/L (12-78) D 01/24/17 05:35 Alkaline Phosphatase 144 U/L (45-117) H 01/24/17 05:35 Creatine Kinase 55 IU/L (39-308) 01/22/17 03:44 Troponin I 0.04 ng/ml (0.00-0.05) D 01/22/17 03:44 B-Natriuretic Peptide 4547.49 pg/ml (5-450) H 01/22/17 03:44 Total Protein 6.3 g/dl (6.4-8.2) L 01/24/17 05:35 Albumin 2.9 g/dl (3.4-5.0) L 01/24/17 05:35 Urine Color Straw 01/22/17 12:20 Urine Appearance Clear 01/22/17 12:20 Urine pH 5.0 (5.0-8.0) 01/22/17 12:20 Ur Specific [place] <= 1.005 (1.005-1.025) 01/22/17 12:20 Urine Protein Negative (NEGATIVE) 01/22/17 12:20 Urine Glucose (UA) Negative (NEGATIVE) 01/22/17 12:20 Urine Ketones Negative (NEGATIVE) 01/22/17 12:20 Urine Blood Negative (NEGATIVE) 01/22/17 12:20 Urine Nitrite Negative (NEGATIVE) 01/22/17 12:20 Urine Bilirubin Negative (NEGATIVE) 01/22/17 12:20 Urine Urobilinogen Negative E.U./dl (0.2-1.0) 01/22/17 12:20 Ur Leukocyte Esterase Trace (NEGATIVE) H 01/22/17 12:20 Urine RBC <1 /hpf (0-3) 01/22/17 12:20 Urine WBC 2 /hpf (3-5) 01/22/17 12:20 Ur Epithelial Cells Rare /hpf (FEW) 01/22/17 12:20 Hyaline Casts 4 /lpf 01/22/17 12:20 Urine Mucus Rare 01/22/17 12:20 ecg: vp public relations with occasional pvc's tele: vp public relations, occ pvcs cxr: congestive changes, similar to priors. echo 05/2016: sev lve, global hk, sev dec lvef, mild rve, nl rv fcn, estefania, mild- mod mr, mv ring, tv ring, mild tr, mild pr, mild phtn, ivc mild dil a/p: 76 yo with h/o IDDM, COPD (O2 dependant) HTN, HLD, Afib (on coumadin), CAD s/p CABG 2012, end stage CHF with ICD placement (on milrinone pump), PVD, BPH here with weight gain/sob. chronic end stage systolic heart failure s/p ICD, on home milrinone infusion/ acute exacerbation: - prior reports have dry weight around 211 lbs, but patient and family feel that this is over dry weight. Clinical exam consistent with volume overload - home regimen recently increased on discharge last week to torsemide 80 mg/40 mg. patient takes metolazone prn. - cont milrinone at patient's home maintenance dose (on chronic infusion destination therapy)--0.35 mcg/kg/min. Followed by heart failure at [facility] --> according to their notes patient has declined further advanced therapies. - cont home coreg. Per Dr. boyd's office notes has not been on ALESSANDRA due to blood pressure limitations and fluctuating creatinine. --> would hold entresto and aldactone for now (started here). Consider resuming as outpatient per patient's outpatient CHF and cardiology doctors. - 01/23 previously diuresed on lasix 80 mg IV BID on prior admits, but repeat weight this evening continues to trend up despite receiving that regimen today. Uptitrate lasix regimen to 100 mg bid. - 01/24: uptitration of lasix limited today due to hypotension this morning ( received entresto, aldactone yesterday). Will try to uptitrate regimen later today if bp improves. - 01/25: wt still up, cr stable. will cont lasix 100 iv bid but also give metolazone 5 mg this afternoon. - Daily weights, bmp, intake/outake s/p ICD - recent office icd check with stable function afib - currently rate controlled on coreg - cont coumadin per INR PVD - con't AC, plavix statin. CAD s/p CABG - No anginal symptoms, no signs acs. Con't home ac, plavix, atorvastatin, coreg MARGAUX? wears bipap qhs at home - con't nighttime bipap HTN: controlled on coreg HLD: con't statin. CKD - stable, monitor with diuresis
[2017-01-25] MEDS: CLOPIDOGREL BISULFATE 75 MG TABLET (FP) PO SCH (11:35)
[2017-01-25] MEDS: ASPIRIN 81 MG CHEWABLE TABLETS PO SCH (11:35)
[2017-01-25] MEDS: DOCUSATE SODIUM 100 MG CAPSULE (FP) PO SCH ×2 (11:35→22:27)
[2017-01-25] MEDS: CARVEDILOL 6.25 MG TABLET (FP) PO SCH ×2 (11:35→22:27)
[2017-01-25] MEDS: MULTIVITAMINS (DAILY MVI) TABLET (FP) PO SCH (11:35)
[2017-01-25] MEDS: RANITIDINE HCL 150 MG TABLET (FP) PO SCH (11:36)
[2017-01-25] MEDS: buPROPion HCL 75 MG TABLET PO SCH (11:36)
[2017-01-25] MEDS: ALLOPURINOL 100 MG TABLET (FP) PO SCH (11:36)
[2017-01-25] MEDS: CHOLECALCIFEROL (VITAMIN D3) 1,000 UNIT TABLET (FP) PO SCH (11:36)
[2017-01-25] MEDS: ASCORBIC ACID 500 MG TABLET (FP) PO SCH (11:36)
--- NOTE | 2017-01-25 12:22 | PN ---
Progress Note, Physician Chief Complaint: Mr Perez says he is feeling better today. Says his breathing is better. Still with swelling in his legs. No cp or n/v. - Current Medication List Current Medications: Active Medications Acetaminophen (Tylenol -) 650 mg PO Q6H PRN PRN Reason: PAIN Last Admin: 01/24/17 18:35 Dose: 650 mg Albuterol Sulfate (Ventolin 0.083% Nebulizer Soln -) 1 amp NEB Q6H PRN PRN Reason: SHORT OF BREATH/WHEEZING Last Admin: 01/22/17 22:30 Dose: 1 amp Allopurinol (Zyloprim -) 100 mg PO DAILY [facility] Last Admin: 01/25/17 11:36 Dose: 100 mg Ascorbic Acid (Vitamin C -) 1,000 mg PO DAILY [facility] Last Admin: 01/25/17 11:36 Dose: 1,000 mg Aspirin (Asa -) 81 mg PO DAILY [facility] Last Admin: 01/25/17 11:35 Dose: 81 mg Atorvastatin Calcium (Lipitor -) 40 mg PO HS [facility] Last Admin: 01/24/17 22:11 Dose: 40 mg Bupropion HCl (Wellbutrin -) 75 mg PO DAILY [facility] Last Admin: 01/25/17 11:36 Dose: 75 mg Carvedilol (Coreg -) 6.25 mg PO BID [facility] Last Admin: 01/25/17 11:35 Dose: 6.25 mg Cholecalciferol (Vitamin D3 -) 1,000 unit PO DAILY [facility] Last Admin: 01/25/17 11:36 Dose: 1,000 unit Clopidogrel Bisulfate (Plavix -) 75 mg PO DAILY [facility] Last Admin: 01/25/17 11:35 Dose: 75 mg Docusate Sodium (Colace -) 100 mg PO BID [facility] Last Admin: 01/25/17 11:35 Dose: 100 mg Ferrous Sulfate (Feosol -) 325 mg PO Q48H [facility] Last Admin: 01/24/17 16:00 Dose: 325 mg Furosemide (Lasix Injection -) 100 mg IVPB BIDLASIX [facility] Last Admin: 01/25/17 05:57 Dose: 100 mg Milrinone Lactate/Dextrose (Milrinone 20mg/100ml Ivpb -) 100 mls @ 10.049 mls/ hr IVPB TITR [facility] PRN Reason: 0.35 MCG/KG/MIN Last Admin: 01/24/17 22:10 Dose: 10.049 mls/hr Insulin Aspart (Novolog Vial) 0 units SQ ACHS [facility] PRN Reason: Protocol Last Admin: 01/25/17 06:02 Dose: Not Given Metolazone (Zaroxolyn -) 5 mg PO ONCE ONE Stop: 01/25/17 13:31 Multivitamins/Minerals/Vitamin C (Tab-A-Vit -) 1 tab PO DAILY [facility] Last Admin: 01/25/17 11:35 Dose: 1 tab Ranitidine HCl (Zantac -) 75 mg PO DAILY [facility] Last Admin: 01/25/17 11:36 Dose: 75 mg Warfarin Sodium (Coumadin -) 4 mg PO DAILY@1800 [facility] Last Admin: 01/23/17 17:39 Dose: 4 mg - Objective Vital Signs: Vital Signs Temperature 97.9 F 01/25/17 05:35 Pulse Rate 89 01/25/17 09:45 Respiratory Rate 20 01/25/17 05:35 Blood Pressure 117/65 01/25/17 05:35 O2 Sat by Pulse Oximetry (%) 99 01/25/17 09:45 Constitutional: Yes: Well Nourished, No Distress, Calm Cardiovascular: Yes: Regular Rate and Rhythm. No: Gallop, Murmur, Rub Respiratory: Yes: Regular, On Nasal O2, Rhonchi. No: CTA Bilaterally, Rales, Wheezes Gastrointestinal: Yes: Normal Bowel Sounds, Soft. No: Distention, Tenderness Extremities: Yes: Erythema (chronic) Edema: Yes Edema: LLE: 2+, RLE: 2+ Labs: CBC, BMP 01/25/17 05:35 01/25/17 05:35 INR, PTT INR 3.86 (0.82-1.09) H 01/25/17 05:35 Problem List - Problems (1) CHF (congestive heart failure) Code(s): I50.9 - HEART FAILURE, UNSPECIFIED Qualifiers: Congestive heart failure type: combined Congestive heart failure chronicity: acute on chronic Qualified Code(s): I50.43 - Acute on chronic combined systolic (congestive) and diastolic (congestive) heart failure (2) Acute and chronic respiratory failure ([id number]) Code(s): J96.20 - ACUTE AND CHR RESP FAILURE, UNSP W HYPOXIA OR HYPERCAPNIA Qualifiers: Respiratory failure complication: hypoxia Qualified Code(s): J96.21 - Acute and chronic respiratory failure with hypoxia (3) CAD (coronary artery disease) Code(s): I25.10 - ATHSCL HEART DISEASE OF [place] CORONARY ARTERY W/O ANG PCTRS (4) Diabetes Code(s): E11.9 - TYPE 2 DIABETES MELLITUS WITHOUT COMPLICATIONS Qualifiers: Diabetes mellitus type: type 2 Diabetes mellitus complication status: with kidney complications Diabetes mellitus complication detail: with chronic kidney disease Chronic kidney disease stage: stage 4 (severe) (5) AICD (automatic cardioverter/defibrillator) present Code(s): Z95.810 - PRESENCE OF AUTOMATIC (IMPLANTABLE) CARDIAC DEFIBRILLATOR (6) CKD (chronic kidney disease) Code(s): N18.9 - CHRONIC KIDNEY DISEASE, UNSPECIFIED Qualifiers: Chronic kidney disease stage: stage 4 (severe) Qualified Code(s): N18.4 - Chronic kidney disease, stage 4 (severe) (7) COPD (chronic obstructive pulmonary disease) Code(s): J44.9 - CHRONIC OBSTRUCTIVE PULMONARY DISEASE, UNSPECIFIED Assessment/Plan (1) CHF (congestive heart failure) Assessment/Plan: -end stage, on chronic milrinone -cardiology note reviewed -lasix increased to 100mg IV bid -one dose metolazone added today -patient improving but not at baseline Code(s): I50.9 - HEART FAILURE, UNSPECIFIED Qualifiers: Congestive heart failure type: combined Congestive heart failure chronicity: acute on chronic Qualified Code(s): I50.43 - Acute on chronic combined systolic (congestive) and diastolic (congestive) heart failure (2) Acute and chronic respiratory failure ([id number]) Assessment/Plan: -pulmonary consulted and case discussed -may benefit from outpatient sleep study -continue oxygen supplementation Code(s): J96.20 - ACUTE AND CHR RESP FAILURE, UNSP W HYPOXIA OR HYPERCAPNIA Qualifiers: Respiratory failure complication: hypoxia Qualified Code(s): J96.21 - Acute and chronic respiratory failure with hypoxia (3) CAD (coronary artery disease) Assessment/Plan: -at baseline -no chest pain -cardiology following -continue current management Code(s): I25.10 - ATHSCL HEART DISEASE OF [place] CORONARY ARTERY W/O ANG PCTRS (4) Diabetes Assessment/Plan: -diabetic diet -FSBS and SSI Code(s): E11.9 - TYPE 2 DIABETES MELLITUS WITHOUT COMPLICATIONS Qualifiers: Diabetes mellitus type: type 2 Diabetes mellitus complication status: with kidney complications Diabetes mellitus complication detail: with chronic kidney disease Chronic kidney disease stage: stage 4 (severe) Qualified Code(s): - (5) AICD (automatic cardioverter/defibrillator) present Assessment/Plan: -on chronic coumadin -hold, INR elevated Code(s): Z95.810 - PRESENCE OF AUTOMATIC (IMPLANTABLE) CARDIAC DEFIBRILLATOR (6) CKD (chronic kidney disease) Assessment/Plan: -stable Code(s): N18.9 - CHRONIC KIDNEY DISEASE, UNSPECIFIED Qualifiers: Chronic kidney disease stage: stage 4 (severe) Qualified Code(s): N18.4 - Chronic kidney disease, stage 4 (severe) (7) COPD (chronic obstructive pulmonary disease) Assessment/Plan: -case d/w pulmonary -continue current management -patient appears improved today Code(s): J44.9 - CHRONIC OBSTRUCTIVE PULMONARY DISEASE, UNSPECIFIED Qualified Code(s): -
[2017-01-25] MEDS ORDERED: METOLAZONE 5 MG TABLET PO ONE (13:30)
[2017-01-25] MEDS: ATORVASTATIN CA 40 MG TABLET (FP) PO SCH (22:27)
[2017-01-25] MEDS: MILRINONE 20MG/100ML IVPB - 100 ML IVPB SCH (22:31)
[2017-01-26] MEDS: FUROSEMIDE 100 MG/10 ML INJECTABLE VIAL IVPB SCH ×2 (06:57→15:01)
[2017-01-26] MEDS: INSULIN (NOVOLOG) ASPART 100 UNITS/ML 10ML VIAL SQ SCH ×4 (06:57→22:59)
[2017-01-26 08:12] LABS: BASOPHIL 0.7 % (0-2.0); EOSINOPHIL 2.9 % (0-4.5); MCH 26.2 pg (25.7-33.7); MCHC 31.9 g/dl (32.0-35.9); MEAN CELL VOLUME 82.1 fl (80-96); MEAN PLT VOLUME 8.5 fl (7.5-11.1); NEUTROPHILS 70.1 % (42.8-82.8); PLATELET COUNT 197 K/MM3 (134-434); RDW 18.7 % (11.9-15.9); WHITE BLOOD COUNT 7.5 K/mm3 (4.0-10.0)
[2017-01-26 08:39] LABS: INR 2.66 (0.82-1.09); PROTHROMBIN TIME (PATIENT) 29.8 SEC (9.98-11.88)
[2017-01-26 08:58] LABS: CALCIUM 8.7 mg/dL (8.5-10.1); COCKROFT - GAULT 49.44; CREATININE 1.7 mg/dL (0.7-1.3); MAGNESIUM 2.6 mg/dL (1.8-2.4); PHOSPHOROUS 3.5 mg/dL (2.5-4.9)
[2017-01-26] MEDS: RANITIDINE HCL 150 MG TABLET (FP) PO SCH (10:09)
[2017-01-26] MEDS: DOCUSATE SODIUM 100 MG CAPSULE (FP) PO SCH ×2 (10:09→22:58)
[2017-01-26] MEDS: buPROPion HCL 75 MG TABLET PO SCH (10:09)
[2017-01-26] MEDS: CLOPIDOGREL BISULFATE 75 MG TABLET (FP) PO SCH (10:10)
[2017-01-26] MEDS: ASPIRIN 81 MG CHEWABLE TABLETS PO SCH (10:10)
[2017-01-26] MEDS: MULTIVITAMINS (DAILY MVI) TABLET (FP) PO SCH (10:10)
[2017-01-26] MEDS: ASCORBIC ACID 500 MG TABLET (FP) PO SCH (10:10)
[2017-01-26] MEDS: ALLOPURINOL 100 MG TABLET (FP) PO SCH (10:10)
[2017-01-26] MEDS: CHOLECALCIFEROL (VITAMIN D3) 1,000 UNIT TABLET (FP) PO SCH (10:10)
[2017-01-26] MEDS: CARVEDILOL 6.25 MG TABLET (FP) PO SCH ×2 (10:10→22:58)
--- NOTE | 2017-01-26 12:04 | PN ---
Progress Note (short form) - Note Progress Note: CC: sob, chf S: still with sob, le edema, no cp/palps/dizzy/loc. urinated much more yesterday after metolazone. no cigs o: Vital Signs Temp 97.2 F L 01/26/17 06:00 Pulse 61 01/26/17 10:22 Resp 20 01/26/17 06:00 BP 111/65 01/26/17 06:00 Pulse Ox 92 L 01/26/17 10:22 Intake & Output 01/25/17 01/26/17 01/26/17 23:59 11:59 23:59 Intake Total 480 Output Total 110 Balance 370 Weight 215 lb 3.2 oz Intake: Oral 480 Output: Urine 110 Void 110 Other: Voiding Method Urinal Urinal # Unmeasured Voids Void 2 Weight Measurement Method Standing Scale NAD JVD elevated, neck supple RRR nl s1, s2 no m/r/g. bibasilar rales nl effort + bs soft nd, nt 1+ edema of LE. no c/c aaox3 pos dp/pt no jaundice diaphoresis Current Medications Generic Name Dose Route Start Last Admin Trade Name Freq PRN Reason Stop Dose Admin Acetaminophen 650 mg 01/24/17 18:27 01/24/17 18:35 Tylenol - PO 650 mg Q6H PRN Administration PAIN Albuterol Sulfate 1 amp 01/22/17 15:20 01/22/17 22:30 Ventolin 0.083% Nebulizer Soln - NEB 1 amp Q6H PRN Administration SHORT OF BREATH/WHEEZING Allopurinol 100 mg 01/22/17 15:30 01/26/17 10:10 Zyloprim - PO 100 mg DAILY [facility] Administration Ascorbic Acid 1,000 mg 01/22/17 15:30 01/26/17 10:10 Vitamin C - PO 1,000 mg DAILY [facility] Administration Aspirin 81 mg 01/24/17 10:00 01/26/17 10:10 Asa - PO 81 mg DAILY [facility] Administration Atorvastatin Calcium 40 mg 01/22/17 22:00 01/25/17 22:27 Lipitor - PO 40 mg HS [facility] Administration Bupropion HCl 75 mg 01/23/17 10:00 01/26/17 10:09 Wellbutrin - PO 75 mg DAILY [facility] Administration Carvedilol 6.25 mg 01/22/17 22:00 01/26/17 10:10 Coreg - PO 6.25 mg BID [facility] Administration Cholecalciferol 1,000 unit 01/22/17 15:30 01/26/17 10:10 Vitamin D3 - PO 1,000 unit DAILY [facility] Administration Clopidogrel Bisulfate 75 mg 01/22/17 15:30 01/26/17 10:10 Plavix - PO 75 mg DAILY [facility] Administration Docusate Sodium 100 mg 01/22/17 22:00 01/26/17 10:09 Colace - PO 100 mg BID [facility] Administration Ferrous Sulfate 325 mg 01/22/17 15:30 01/24/17 16:00 Feosol - PO 325 mg Q48H [facility] Administration Furosemide 100 mg 01/24/17 16:15 01/26/17 06:57 Lasix Injection - IVPB 100 mg BIDLASIX [facility] Administration Milrinone Lactate/Dextrose 100 mls @ 10.049 mls/hr 01/23/17 18:35 01/25/17 22: 31 Milrinone 20mg/100ml Ivpb - IVPB Not Given TITR [facility] 0.35 MCG/KG/MIN Insulin Aspart 0 units 01/24/17 16:30 01/26/17 06:57 Novolog Vial SQ Not Given ACHS [facility] Protocol Metolazone 5 mg 01/26/17 13:00 Zaroxolyn - PO 01/26/17 13:01 ONCE ONE Multivitamins/Minerals/Vitamin C 1 tab 01/23/17 10:00 01/26/17 10:10 Tab-A-Vit - PO 1 tab DAILY [facility] Administration Ranitidine HCl 75 mg 01/22/17 15:30 01/26/17 10:09 Zantac - PO 75 mg DAILY [facility] Administration Warfarin Sodium 4 mg 01/22/17 18:57 01/23/17 17:39 Coumadin - PO 4 mg DAILY@1800 [facility] Administration Laboratory Last Values WBC 7.5 K/mm3 (4.0-10.0) 01/26/17 06:00 RBC 4.47 M/mm3 (4.00-5.60) 01/26/17 06:00 Hgb 11.7 GM/dL (11.7-16.9) 01/26/17 06:00 Hct 36.7 % (35.4-49) 01/26/17 06:00 MCV 82.1 fl (80-96) 01/26/17 06:00 MCHC 31.9 g/dl (32.0-35.9) L 01/26/17 06:00 RDW 18.7 % (11.9-15.9) H 01/26/17 06:00 Plt Count 197 K/MM3 (134-434) 01/26/17 06:00 MPV 8.5 fl (7.5-11.1) 01/26/17 06:00 Neutrophils % 70.1 % (42.8-82.8) 01/26/17 06:00 Lymphocytes % 17.6 % (8-40) 01/26/17 06:00 Monocytes % 8.7 % (3.8-10.2) 01/26/17 06:00 Eosinophils % 2.9 % (0-4.5) 01/26/17 06:00 Basophils % 0.7 % (0-2.0) 01/26/17 06:00 INR 2.66 (0.82-1.09) H D 01/26/17 06:00 Puncture Site Right radial 01/24/17 12:35 ABG pH 7.38 (7.35-7.45) 01/24/17 12:35 ABG pCO2 at Pt Temp 51.8 mmHg (35-45) H 01/24/17 12:35 ABG pO2 at Pt Temp 59.4 mmHg (70-100) L D 01/24/17 12:35 ABG HCO3 30.0 meq/L (22-26) H 01/24/17 12:35 ABG O2 Sat (Measured) 89.6 % (90-98.9) L 01/24/17 12:35 ABG O2 Content 13.9 % vol (15-22) L 01/24/17 12:35 ABG Base Excess 4.4 meq/l (-2-2) H 01/24/17 12:35 Shahab Test Positive 01/24/17 12:35 O2 Delivery Device N/c 01/24/17 12:35 Oxygen Flow Rate 3l 01/24/17 12:35 PEEP 0.0 cmH2O 01/24/17 12:35 Sodium 141 mmol/L (136-145) 01/26/17 06:00 Potassium 3.7 mmol/L (3.5-5.1) 01/26/17 06:00 Chloride 100 mmol/L (98-107) 01/26/17 06:00 Carbon Dioxide 31 mmol/L (21-32) 01/26/17 06:00 Anion Gap 10 (8-16) 01/26/17 06:00 BUN 49 mg/dL (7-18) H 01/26/17 06:00 Creatinine 1.7 mg/dL (0.7-1.3) H 01/26/17 06:00 Creat Clearance w eGFR 39.18 (>60) 01/24/17 05:35 POC Glucometer 151 UNITS (()) 01/26/17 06:55 Random Glucose 118 mg/dL (74-106) H 01/26/17 06:00 Calcium 8.7 mg/dL (8.5-10.1) 01/26/17 06:00 Phosphorus 3.5 mg/dL (2.5-4.9) 01/26/17 06:00 Magnesium 2.6 mg/dL (1.8-2.4) H 01/26/17 06:00 Total Bilirubin 0.8 mg/dL (0.2-1.0) D 01/24/17 05:35 AST 20 U/L (15-37) D 01/24/17 05:35 ALT 29 U/L (12-78) D 01/24/17 05:35 Alkaline Phosphatase 144 U/L (45-117) H 01/24/17 05:35 Creatine Kinase 55 IU/L (39-308) 01/22/17 03:44 Troponin I 0.04 ng/ml (0.00-0.05) D 01/22/17 03:44 B-Natriuretic Peptide 4547.49 pg/ml (5-450) H 01/22/17 03:44 Total Protein 6.3 g/dl (6.4-8.2) L 01/24/17 05:35 Albumin 2.9 g/dl (3.4-5.0) L 01/24/17 05:35 Urine Color Straw 01/22/17 12:20 Urine Appearance Clear 01/22/17 12:20 Urine pH 5.0 (5.0-8.0) 01/22/17 12:20 Ur Specific [place] <= 1.005 (1.005-1.025) 01/22/17 12:20 Urine Protein Negative (NEGATIVE) 01/22/17 12:20 Urine Glucose (UA) Negative (NEGATIVE) 01/22/17 12:20 Urine Ketones Negative (NEGATIVE) 01/22/17 12:20 Urine Blood Negative (NEGATIVE) 01/22/17 12:20 Urine Nitrite Negative (NEGATIVE) 01/22/17 12:20 Urine Bilirubin Negative (NEGATIVE) 01/22/17 12:20 Urine Urobilinogen Negative E.U./dl (0.2-1.0) 01/22/17 12:20 Ur Leukocyte Esterase Trace (NEGATIVE) H 01/22/17 12:20 Urine RBC <1 /hpf (0-3) 01/22/17 12:20 Urine WBC 2 /hpf (3-5) 01/22/17 12:20 Ur Epithelial Cells Rare /hpf (FEW) 01/22/17 12:20 Hyaline Casts 4 /lpf 01/22/17 12:20 Urine Mucus Rare 01/22/17 12:20 ecg: vp sales with occasional pvc's tele: vp sales, occ pvcs cxr: congestive changes, similar to priors. echo 05/2016: sev lve, global hk, sev dec lvef, mild rve, nl rv fcn, estefania, mild- mod mr, mv ring, tv ring, mild tr, mild pr, mild phtn, ivc mild dil a/p: 76 yo with h/o IDDM, COPD (O2 dependant) HTN, HLD, Afib (on coumadin), CAD s/p CABG 2012, end stage CHF with ICD placement (on milrinone pump), PVD, BPH here with weight gain/sob. chronic end stage systolic heart failure s/p ICD, on home milrinone infusion/ acute exacerbation: - prior reports have dry weight around 211 lbs, but patient and family feel that this is over dry weight. Clinical exam consistent with volume overload - home regimen recently increased on discharge last week to torsemide 80 mg/40 mg. patient takes metolazone prn. - cont milrinone at patient's home maintenance dose (on chronic infusion destination therapy)--0.35 mcg/kg/min. Followed by heart failure at [facility] --> according to their notes patient has declined further advanced therapies. - cont home coreg. Per Dr. boyd's office notes has not been on ALESSANDRA due to blood pressure limitations and fluctuating creatinine. --> would hold entresto and aldactone for now (started here). Consider resuming as outpatient per patient's outpatient CHF and cardiology doctors. - 01/23 previously diuresed on lasix 80 mg IV BID on prior admits, but repeat weight this evening continues to trend up despite receiving that regimen today. Uptitrate lasix regimen to 100 mg bid. - 01/24: uptitration of lasix limited today due to hypotension this morning ( received entresto, aldactone yesterday). Will try to uptitrate regimen later today if bp improves. - 01/25: wt still up, cr stable. will cont lasix 100 iv bid but also give metolazone 5 mg this afternoon. - 01/26: cr stable, wt down slightly, cont with lasix 100 iv bid and metolazone this afternoon - Daily weights, bmp, intake/outake s/p ICD - recent office icd check with stable function afib - currently rate controlled on coreg - cont coumadin per INR PVD - con't AC, plavix statin. CAD s/p CABG - No anginal symptoms, no signs acs. Con't home ac, plavix, atorvastatin, coreg MARGAUX? wears bipap qhs at home - con't nighttime bipap HTN: controlled on coreg HLD: con't statin. CKD - stable, monitor with diuresis
[2017-01-26] MEDS ORDERED: METOLAZONE 5 MG TABLET PO ONE (13:00)
--- NOTE | 2017-01-26 14:56 | PN ---
Progress Note, Physician Chief Complaint: Mr Perez says he is feeling fine. Says he is not short of breath, however has not gotten up and walked around. No cp or n/v. at bedside saying he is getting better but still is not at baseline. - Current Medication List Current Medications: Active Medications Acetaminophen (Tylenol -) 650 mg PO Q6H PRN PRN Reason: PAIN Last Admin: 01/24/17 18:35 Dose: 650 mg Albuterol Sulfate (Ventolin 0.083% Nebulizer Soln -) 1 amp NEB Q6H PRN PRN Reason: SHORT OF BREATH/WHEEZING Last Admin: 01/22/17 22:30 Dose: 1 amp Allopurinol (Zyloprim -) 100 mg PO DAILY [facility] Last Admin: 01/26/17 10:10 Dose: 100 mg Ascorbic Acid (Vitamin C -) 1,000 mg PO DAILY [facility] Last Admin: 01/26/17 10:10 Dose: 1,000 mg Aspirin (Asa -) 81 mg PO DAILY [facility] Last Admin: 01/26/17 10:10 Dose: 81 mg Atorvastatin Calcium (Lipitor -) 40 mg PO HS [facility] Last Admin: 01/25/17 22:27 Dose: 40 mg Bupropion HCl (Wellbutrin -) 75 mg PO DAILY [facility] Last Admin: 01/26/17 10:09 Dose: 75 mg Carvedilol (Coreg -) 6.25 mg PO BID [facility] Last Admin: 01/26/17 10:10 Dose: 6.25 mg Cholecalciferol (Vitamin D3 -) 1,000 unit PO DAILY [facility] Last Admin: 01/26/17 10:10 Dose: 1,000 unit Clopidogrel Bisulfate (Plavix -) 75 mg PO DAILY [facility] Last Admin: 01/26/17 10:10 Dose: 75 mg Docusate Sodium (Colace -) 100 mg PO BID [facility] Last Admin: 01/26/17 10:09 Dose: 100 mg Ferrous Sulfate (Feosol -) 325 mg PO Q48H [facility] Last Admin: 01/24/17 16:00 Dose: 325 mg Furosemide (Lasix Injection -) 100 mg IVPB BIDLASIX [facility] Last Admin: 01/26/17 06:57 Dose: 100 mg Milrinone Lactate/Dextrose (Milrinone 20mg/100ml Ivpb -) 100 mls @ 10.049 mls/ hr IVPB TITR [facility] PRN Reason: 0.35 MCG/KG/MIN Last Admin: 01/25/17 22:31 Dose: Not Given Insulin Aspart (Novolog Vial) 0 units SQ ACHS [facility] PRN Reason: Protocol Last Admin: 01/26/17 12:11 Dose: Not Given Multivitamins/Minerals/Vitamin C (Tab-A-Vit -) 1 tab PO DAILY [facility] Last Admin: 01/26/17 10:10 Dose: 1 tab Ranitidine HCl (Zantac -) 75 mg PO DAILY [facility] Last Admin: 01/26/17 10:09 Dose: 75 mg Warfarin Sodium (Coumadin -) 4 mg PO DAILY@1800 [facility] Last Admin: 01/23/17 17:39 Dose: 4 mg - Objective Vital Signs: Vital Signs Temperature 98.1 F 01/26/17 10:00 Pulse Rate 61 01/26/17 10:22 Respiratory Rate 22 01/26/17 10:00 Blood Pressure 107/65 01/26/17 10:00 O2 Sat by Pulse Oximetry (%) 93 L 01/26/17 14:28 Constitutional: Yes: No Distress, Calm, Obese Cardiovascular: Yes: Regular Rate and Rhythm. No: Gallop, Murmur, Rub Respiratory: Yes: Regular, Rhonchi. No: CTA Bilaterally, Rales, Wheezes Gastrointestinal: Yes: Normal Bowel Sounds, Soft. No: Distention, Tenderness Extremities: Yes: WNL Edema: Yes Edema: LLE: 2+, RLE: 2+ Labs: CBC, BMP 01/26/17 06:00 01/26/17 06:00 INR, PTT INR 2.66 (0.82-1.09) H D 01/26/17 06:00 Problem List - Problems (1) CHF (congestive heart failure) Code(s): I50.9 - HEART FAILURE, UNSPECIFIED Qualifiers: Congestive heart failure type: combined Congestive heart failure chronicity: acute on chronic Qualified Code(s): I50.43 - Acute on chronic combined systolic (congestive) and diastolic (congestive) heart failure (2) Acute and chronic respiratory failure ([id number]) Code(s): J96.20 - ACUTE AND CHR RESP FAILURE, UNSP W HYPOXIA OR HYPERCAPNIA Qualifiers: Respiratory failure complication: hypoxia Qualified Code(s): J96.21 - Acute and chronic respiratory failure with hypoxia (3) CAD (coronary artery disease) Code(s): I25.10 - ATHSCL HEART DISEASE OF [place] CORONARY ARTERY W/O ANG PCTRS (4) Diabetes Code(s): E11.9 - TYPE 2 DIABETES MELLITUS WITHOUT COMPLICATIONS Qualifiers: Diabetes mellitus type: type 2 Diabetes mellitus complication status: with kidney complications Diabetes mellitus complication detail: with chronic kidney disease Chronic kidney disease stage: stage 4 (severe) (5) AICD (automatic cardioverter/defibrillator) present Code(s): Z95.810 - PRESENCE OF AUTOMATIC (IMPLANTABLE) CARDIAC DEFIBRILLATOR (6) CKD (chronic kidney disease) Code(s): N18.9 - CHRONIC KIDNEY DISEASE, UNSPECIFIED Qualifiers: Chronic kidney disease stage: stage 4 (severe) Qualified Code(s): N18.4 - Chronic kidney disease, stage 4 (severe) (7) COPD (chronic obstructive pulmonary disease) Code(s): J44.9 - CHRONIC OBSTRUCTIVE PULMONARY DISEASE, UNSPECIFIED Assessment/Plan (1) CHF (congestive heart failure) Assessment/Plan: -end stage, on chronic milrinone -continue lasix and metolazone -weight decreased from yesterday but up from 01/24 Code(s): I50.9 - HEART FAILURE, UNSPECIFIED Qualifiers: Congestive heart failure type: combined Congestive heart failure chronicity: acute on chronic Qualified Code(s): I50.43 - Acute on chronic combined systolic (congestive) and diastolic (congestive) heart failure (2) Acute and chronic respiratory failure ([id number]) Assessment/Plan: -continue oxygen supplementation -may benefit from outpatient sleep study Code(s): J96.20 - ACUTE AND CHR RESP FAILURE, UNSP W HYPOXIA OR HYPERCAPNIA Qualifiers: Respiratory failure complication: hypoxia Qualified Code(s): J96.21 - Acute and chronic respiratory failure with hypoxia (3) CAD (coronary artery disease) Assessment/Plan: -at baseline -no chest pain -cardiology following -continue current management Code(s): I25.10 - ATHSCL HEART DISEASE OF [place] CORONARY ARTERY W/O ANG PCTRS (4) Diabetes Assessment/Plan: -diabetic diet -FSBS and SSI Code(s): E11.9 - TYPE 2 DIABETES MELLITUS WITHOUT COMPLICATIONS Qualifiers: Diabetes mellitus type: type 2 Diabetes mellitus complication status: with kidney complications Diabetes mellitus complication detail: with chronic kidney disease Chronic kidney disease stage: stage 4 (severe) Qualified Code(s): - (5) AICD (automatic cardioverter/defibrillator) present Assessment/Plan: -on chronic coumadin -restart coumadin today Code(s): Z95.810 - PRESENCE OF AUTOMATIC (IMPLANTABLE) CARDIAC DEFIBRILLATOR (6) CKD (chronic kidney disease) Assessment/Plan: -stable Code(s): N18.9 - CHRONIC KIDNEY DISEASE, UNSPECIFIED Qualifiers: Chronic kidney disease stage: stage 4 (severe) Qualified Code(s): N18.4 - Chronic kidney disease, stage 4 (severe) (7) COPD (chronic obstructive pulmonary disease) Assessment/Plan: -stable Code(s): J44.9 - CHRONIC OBSTRUCTIVE PULMONARY DISEASE, UNSPECIFIED Qualified Code(s): -
--- NOTE | 2017-01-26 17:09 | PN ---
Progress Note (short form) - Note Progress Note: PULMONARY SITTING ON EDGE OF BED APPERS DYSPNEIC AT REST 104/58/AFEBRILE ANICTERIC BIBASILAR CRACKLES S1S2 OBESE 2-3 + EDEMA ANKLES LABS/MEDS/NOTES/IMAGING REVIEWED Acute on chronic hypoxemic/hypercapneic respiratory failure Chf Cardiomyopathy Copd DM A-fib Bipap prn VM O2 as needed Milrinone Diuresis Inhaled bronchodilators Daily wts' monitor lytes,renal function sleep studies outpatient Mark SEE MD
[2017-01-26] MEDS: FERROUS SO4 325 MG TABLET (FP) PO SCH (17:14)
[2017-01-26] MEDS: MILRINONE 20MG/100ML IVPB - 100 ML IVPB SCH ×2 (17:15→22:58)
[2017-01-26] MEDS: WARFARIN NA 2 MG TABLET (UD) PO SCH (17:15)
[2017-01-26] MEDS ORDERED: INSULIN (NOVOLOG) ASPART 100 UNITS/ML 10ML VIAL ONE (17:17)
[2017-01-26] MEDS: ATORVASTATIN CA 40 MG TABLET (FP) PO SCH (22:58)
[2017-01-27] MEDS: FUROSEMIDE 100 MG/10 ML INJECTABLE VIAL IVPB SCH ×2 (05:46→14:00)
[2017-01-27] MEDS: INSULIN (NOVOLOG) ASPART 100 UNITS/ML 10ML VIAL SQ SCH ×3 (06:37→21:59)
[2017-01-27 07:28] LABS: BASOPHIL 0.6 % (0-2.0); EOSINOPHIL 2.1 % (0-4.5); MCH 26.4 pg (25.7-33.7); MCHC 32.5 g/dl (32.0-35.9); MEAN CELL VOLUME 81.1 fl (80-96); MEAN PLT VOLUME 8.4 fl (7.5-11.1); NEUTROPHILS 70.6 % (42.8-82.8); PLATELET COUNT 193 K/MM3 (134-434); RDW 18.5 % (11.9-15.9); WHITE BLOOD COUNT 8.1 K/mm3 (4.0-10.0)
[2017-01-27 07:34] LABS: INR 1.91 (0.82-1.09); PROTHROMBIN TIME (PATIENT) 21.3 SEC (9.98-11.88)
[2017-01-27 07:46] LABS: COCKROFT - GAULT 45.95; CREATININE 1.8 mg/dL (0.7-1.3); MAGNESIUM 2.4 mg/dL (1.8-2.4); PHOSPHOROUS 3.4 mg/dL (2.5-4.9)
[2017-01-27] MEDS ORDERED: POTASSIUM CHLORIDE TABS 20 MEQ TABLET.ER (FP) PO ONE (09:07)
[2017-01-27] MEDS: RANITIDINE HCL 150 MG TABLET (FP) PO SCH (10:40)
[2017-01-27] MEDS: CLOPIDOGREL BISULFATE 75 MG TABLET (FP) PO SCH (10:40)
[2017-01-27] MEDS: buPROPion HCL 75 MG TABLET PO SCH (10:40)
[2017-01-27] MEDS: ASCORBIC ACID 500 MG TABLET (FP) PO SCH (10:40)
[2017-01-27] MEDS: ALLOPURINOL 100 MG TABLET (FP) PO SCH (10:40)
[2017-01-27] MEDS: CARVEDILOL 6.25 MG TABLET (FP) PO SCH ×2 (10:40→22:03)
[2017-01-27] MEDS: DOCUSATE SODIUM 100 MG CAPSULE (FP) PO SCH ×2 (10:40→22:02)
[2017-01-27] MEDS: MULTIVITAMINS (DAILY MVI) TABLET (FP) PO SCH (10:41)
[2017-01-27] MEDS: CHOLECALCIFEROL (VITAMIN D3) 1,000 UNIT TABLET (FP) PO SCH (10:41)
[2017-01-27] MEDS: ASPIRIN 81 MG CHEWABLE TABLETS PO SCH (10:41)
--- NOTE | 2017-01-27 10:56 | PN ---
Progress Note (short form) - Note Progress Note: CC: sob, chf S: still with sob but less, le edema present but less, no cp/palps/dizzy/loc. no cigs o: Vital Signs Temp 97.8 F 01/27/17 05:47 Pulse 76 01/27/17 05:47 Resp 20 01/27/17 05:47 BP 113/63 01/27/17 05:47 Pulse Ox 98 01/26/17 21:00 Intake & Output 01/26/17 01/26/17 01/27/17 11:59 23:59 11:59 Intake Total 900 150 170 Output Total 511 2250 200 Balance 389 -2100 -30 Weight 215 lb 3.2 oz 211 lb 12.8 oz Intake: IV 120 120 Milrinone 20Mg/100Ml Ivpb 120 120 - 100 ml @ 0.35 MCG/KG/ MIN 10.049 mls/hr IVPB TITR [facility] Rx#:[id number] IVPB 100 50 Oral 680 150 Output: Urine 510 2250 200 Void 510 2250 200 Emesis 1 Other: Voiding Method Urinal Urinal # Unmeasured Voids Void 2 Bowel Movement No Yes Yes # Bowel Movements 1 Weight Measurement Method Standing Scale Standing Scale NAD JVD elevated, neck supple RRR nl s1, s2 no m/r/g. bibasilar rales nl effort + bs soft nd, nt trace edema of LE. no c/c aaox3 pos dp/pt no jaundice diaphoresis Current Medications Generic Name Dose Route Start Last Admin Trade Name Freq PRN Reason Stop Dose Admin Acetaminophen 650 mg 01/24/17 18:27 01/24/17 18:35 Tylenol - PO 650 mg Q6H PRN Administration PAIN Albuterol Sulfate 1 amp 01/22/17 15:20 01/22/17 22:30 Ventolin 0.083% Nebulizer Soln - NEB 1 amp Q6H PRN Administration SHORT OF BREATH/WHEEZING Allopurinol 100 mg 01/22/17 15:30 01/27/17 10:40 Zyloprim - PO 100 mg DAILY [facility] Administration Ascorbic Acid 1,000 mg 01/22/17 15:30 01/27/17 10:40 Vitamin C - PO 1,000 mg DAILY [facility] Administration Aspirin 81 mg 01/24/17 10:00 01/27/17 10:41 Asa - PO 81 mg DAILY [facility] Administration Atorvastatin Calcium 40 mg 05/28/17 22:00 01/26/17 22:58 Lipitor - PO 40 mg HS [facility] Administration Bupropion HCl 75 mg 01/23/17 10:00 01/27/17 10:40 Wellbutrin - PO 75 mg DAILY [facility] Administration Carvedilol 6.25 mg 01/22/17 22:00 01/27/17 10:40 Coreg - PO 6.25 mg BID [facility] Administration Cholecalciferol 1,000 unit 01/22/17 15:30 01/27/17 10:41 Vitamin D3 - PO 1,000 unit DAILY [facility] Administration Clopidogrel Bisulfate 75 mg 01/22/17 15:30 01/27/17 10:40 Plavix - PO 75 mg DAILY [facility] Administration Docusate Sodium 100 mg 01/22/17 22:00 01/27/17 10:40 Colace - PO 100 mg BID [facility] Administration Ferrous Sulfate 325 mg 01/22/17 15:30 01/26/17 17:14 Feosol - PO 325 mg Q48H [facility] Administration Furosemide 100 mg 01/24/17 16:15 01/27/17 05:46 Lasix Injection - IVPB 100 mg BIDLASIX [facility] Administration Milrinone Lactate/Dextrose 100 mls @ 10.049 mls/hr 01/23/17 18:35 01/26/17 22: 58 Milrinone 20mg/100ml Ivpb - IVPB 10.049 mls/hr TITR [facility] Administration 0.35 MCG/KG/MIN Insulin Aspart 0 units 01/24/17 16:30 01/27/17 06:37 Novolog Vial SQ Not Given ACHS [facility] Protocol Multivitamins/Minerals/Vitamin C 1 tab 01/23/17 10:00 01/27/17 10:41 Tab-A-Vit - PO 1 tab DAILY [facility] Administration Potassium Chloride 20 meq 01/27/17 14:00 K-Dur - PO BID [facility] Ranitidine HCl 75 mg 01/22/17 15:30 01/27/17 10:40 Zantac - PO 75 mg DAILY [facility] Administration Warfarin Sodium 4 mg 01/22/17 18:57 01/26/17 17:15 Coumadin - PO 4 mg DAILY@1800 [facility] Administration Laboratory Last Values WBC 8.1 K/mm3 (4.0-10.0) 01/27/17 05:35 RBC 4.39 M/mm3 (4.00-5.60) 01/27/17 05:35 Hgb 11.6 GM/dL (11.7-16.9) L 01/27/17 05:35 Hct 35.6 % (35.4-49) 01/27/17 05:35 MCV 81.1 fl (80-96) 01/27/17 05:35 MCHC 32.5 g/dl (32.0-35.9) 01/27/17 05:35 RDW 18.5 % (11.9-15.9) H 01/27/17 05:35 Plt Count 193 K/MM3 (134-434) 01/27/17 05:35 MPV 8.4 fl (7.5-11.1) 01/27/17 05:35 Neutrophils % 70.6 % (42.8-82.8) 01/27/17 05:35 Lymphocytes % 17.1 % (8-40) 01/27/17 05:35 Monocytes % 9.6 % (3.8-10.2) 01/27/17 05:35 Eosinophils % 2.1 % (0-4.5) 01/27/17 05:35 Basophils % 0.6 % (0-2.0) 01/27/17 05:35 INR 1.91 (0.82-1.09) H 01/27/17 05:35 Puncture Site Right radial 01/24/17 12:35 ABG pH 7.38 (7.35-7.45) 01/24/17 12:35 ABG pCO2 at Pt Temp 51.8 mmHg (35-45) H 01/24/17 12:35 ABG pO2 at Pt Temp 59.4 mmHg (70-100) L D 01/24/17 12:35 ABG HCO3 30.0 meq/L (22-26) H 01/24/17 12:35 ABG O2 Sat (Measured) 89.6 % (90-98.9) L 01/24/17 12:35 ABG O2 Content 13.9 % vol (15-22) L 01/24/17 12:35 ABG Base Excess 4.4 meq/l (-2-2) H 01/24/17 12:35 Shahab Test Positive 01/24/17 12:35 O2 Delivery Device N/c 01/24/17 12:35 Oxygen Flow Rate 3l 01/24/17 12:35 PEEP 0.0 cmH2O 01/24/17 12:35 Sodium 139 mmol/L (136-145) 01/27/17 05:35 Potassium 3.1 mmol/L (3.5-5.1) L 01/27/17 05:35 Chloride 93 mmol/L (98-107) L 01/27/17 05:35 Carbon Dioxide 32 mmol/L (21-32) 01/27/17 05:35 Anion Gap 14 (8-16) 01/27/17 05:35 BUN 52 mg/dL (7-18) H 01/27/17 05:35 Creatinine 1.8 mg/dL (0.7-1.3) H 01/27/17 05:35 Creat Clearance w eGFR 39.18 (>60) 01/24/17 05:35 POC Glucometer 187 UNITS (()) 01/27/17 05:39 Random Glucose 159 mg/dL (74-106) H D 01/27/17 05:35 Calcium 9.0 mg/dL (8.5-10.1) 01/27/17 05:35 Phosphorus 3.4 mg/dL (2.5-4.9) 01/27/17 05:35 Magnesium 2.4 mg/dL (1.8-2.4) 01/27/17 05:35 Total Bilirubin 0.8 mg/dL (0.2-1.0) D 01/24/17 05:35 AST 20 U/L (15-37) D 01/24/17 05:35 ALT 29 U/L (12-78) D 01/24/17 05:35 Alkaline Phosphatase 144 U/L (45-117) H 01/24/17 05:35 Creatine Kinase 55 IU/L (39-308) 01/22/17 03:44 Troponin I 0.04 ng/ml (0.00-0.05) D 01/22/17 03:44 B-Natriuretic Peptide 4547.49 pg/ml (5-450) H 01/22/17 03:44 Total Protein 6.3 g/dl (6.4-8.2) L 01/24/17 05:35 Albumin 2.9 g/dl (3.4-5.0) L 01/24/17 05:35 Urine Color Straw 01/22/17 12:20 Urine Appearance Clear 01/22/17 12:20 Urine pH 5.0 (5.0-8.0) 01/22/17 12:20 Ur Specific [place] <= 1.005 (1.005-1.025) 01/22/17 12:20 Urine Protein Negative (NEGATIVE) 01/22/17 12:20 Urine Glucose (UA) Negative (NEGATIVE) 01/22/17 12:20 Urine Ketones Negative (NEGATIVE) 01/22/17 12:20 Urine Blood Negative (NEGATIVE) 01/22/17 12:20 Urine Nitrite Negative (NEGATIVE) 01/22/17 12:20 Urine Bilirubin Negative (NEGATIVE) 01/22/17 12:20 Urine Urobilinogen Negative E.U./dl (0.2-1.0) 01/22/17 12:20 Ur Leukocyte Esterase Trace (NEGATIVE) H 01/22/17 12:20 Urine RBC <1 /hpf (0-3) 01/22/17 12:20 Urine WBC 2 /hpf (3-5) 01/22/17 12:20 Ur Epithelial Cells Rare /hpf (FEW) 01/22/17 12:20 Hyaline Casts 4 /lpf 01/22/17 12:20 Urine Mucus Rare 01/22/17 12:20 ecg: [employer] with occasional pvc's tele: [employer], occ pvcs,nsvt 7 beats cxr: congestive changes, similar to priors. echo 05/2016: sev lve, global hk, sev dec lvef, mild rve, nl rv fcn, estefania, mild- mod mr, mv ring, tv ring, mild tr, mild pr, mild phtn, ivc mild dil a/p: 76 yo with h/o IDDM, COPD (O2 dependant) HTN, HLD, Afib (on coumadin), CAD s/p CABG 2012, end stage CHF with ICD placement (on milrinone pump), PVD, BPH here with weight gain/sob. chronic end stage systolic heart failure s/p ICD, on home milrinone infusion/ acute exacerbation: - prior reports have dry weight around 211 lbs, but patient and family feel that this is over dry weight. Clinical exam consistent with volume overload - home regimen recently increased on discharge last week to torsemide 80 mg/40 mg. patient takes metolazone prn. - cont milrinone at patient's home maintenance dose (on chronic infusion destination therapy)--0.35 mcg/kg/min. Followed by heart failure at [facility] --> according to their notes patient has declined further advanced therapies. - cont home coreg. Per Dr. boyd's office notes has not been on ALESSANDRA due to blood pressure limitations and fluctuating creatinine. --> would hold entresto and aldactone for now (started here). Consider resuming as outpatient per patient's outpatient CHF and cardiology doctors. - 01/23 previously diuresed on lasix 80 mg IV BID on prior admits, but repeat weight this evening continues to trend up despite receiving that regimen today. Uptitrate lasix regimen to 100 mg bid. - 01/24: uptitration of lasix limited today due to hypotension this morning ( received entresto, aldactone yesterday). Will try to uptitrate regimen later today if bp improves. - 01/25: wt still up, cr stable. will cont lasix 100 iv bid but also give metolazone 5 mg this afternoon. - 01/26: cr stable, wt down slightly, cont with lasix 100 iv bid and metolazone this afternoon - 01/27: cr stable, wt down significantly today. cont lasix 100 iv bid. will replete k. - Daily weights, bmp, intake/outake s/p ICD - recent office icd check with stable function afib - currently rate controlled on coreg - cont coumadin per INR PVD - con't AC, plavix statin. CAD s/p CABG - No anginal symptoms, no signs acs. Con't home ac, plavix, atorvastatin, coreg MARGAUX? wears bipap qhs at home - con't nighttime bipap HTN: controlled on coreg HLD: con't statin. CKD - stable, monitor with diuresis
--- NOTE | 2017-01-27 11:10 | PN ---
Progress Note, Physician History of Present Illness: pulmonary alert,feeling better,less dyspneic - Current Medication List Current Medications: Active Medications Acetaminophen (Tylenol -) 650 mg PO Q6H PRN PRN Reason: PAIN Last Admin: 01/24/17 18:35 Dose: 650 mg Albuterol Sulfate (Ventolin 0.083% Nebulizer Soln -) 1 amp NEB Q6H PRN PRN Reason: SHORT OF BREATH/WHEEZING Last Admin: 01/22/17 22:30 Dose: 1 amp Allopurinol (Zyloprim -) 100 mg PO DAILY [facility] Last Admin: 01/27/17 10:40 Dose: 100 mg Ascorbic Acid (Vitamin C -) 1,000 mg PO DAILY [facility] Last Admin: 01/27/17 10:40 Dose: 1,000 mg Aspirin (Asa -) 81 mg PO DAILY [facility] Last Admin: 01/27/17 10:41 Dose: 81 mg Atorvastatin Calcium (Lipitor -) 40 mg PO HS [facility] Last Admin: 01/26/17 22:58 Dose: 40 mg Bupropion HCl (Wellbutrin -) 75 mg PO DAILY [facility] Last Admin: 01/27/17 10:40 Dose: 75 mg Carvedilol (Coreg -) 6.25 mg PO BID [facility] Last Admin: 01/27/17 10:40 Dose: 6.25 mg Cholecalciferol (Vitamin D3 -) 1,000 unit PO DAILY [facility] Last Admin: 01/27/17 10:41 Dose: 1,000 unit Clopidogrel Bisulfate (Plavix -) 75 mg PO DAILY [facility] Last Admin: 01/27/17 10:40 Dose: 75 mg Docusate Sodium (Colace -) 100 mg PO BID [facility] Last Admin: 01/27/17 10:40 Dose: 100 mg Ferrous Sulfate (Feosol -) 325 mg PO Q48H [facility] Last Admin: 01/26/17 17:14 Dose: 325 mg Furosemide (Lasix Injection -) 100 mg IVPB BIDLASIX [facility] Last Admin: 01/27/17 05:46 Dose: 100 mg Milrinone Lactate/Dextrose (Milrinone 20mg/100ml Ivpb -) 100 mls @ 10.049 mls/ hr IVPB TITR [facility] PRN Reason: 0.35 MCG/KG/MIN Last Admin: 01/26/17 22:58 Dose: 10.049 mls/hr Insulin Aspart (Novolog Vial) 0 units SQ ACHS [facility] PRN Reason: Protocol Last Admin: 01/27/17 06:37 Dose: Not Given Multivitamins/Minerals/Vitamin C (Tab-A-Vit -) 1 tab PO DAILY [facility] Last Admin: 01/27/17 10:41 Dose: 1 tab Potassium Chloride (K-Dur -) 20 meq PO BID [facility] Ranitidine HCl (Zantac -) 75 mg PO DAILY [facility] Last Admin: 01/27/17 10:40 Dose: 75 mg Warfarin Sodium (Coumadin -) 4 mg PO DAILY@1800 [facility] Last Admin: 01/26/17 17:15 Dose: 4 mg - Objective Vital Signs: Vital Signs Temperature 97.8 F 01/27/17 05:47 Pulse Rate 76 01/27/17 05:47 Respiratory Rate 20 01/27/17 05:47 Blood Pressure 113/63 01/27/17 05:47 O2 Sat by Pulse Oximetry (%) 98 01/26/17 21:00 Constitutional: Yes: Well Nourished, Calm Eyes: Yes: WNL HENT: Yes: WNL Neck: Yes: WNL Cardiovascular: Yes: Pulse Irregular, S1, S2 Respiratory: Yes: Rales (bibasilar crackles) Gastrointestinal: Yes: Normal Bowel Sounds, Soft Extremities: Yes: WNL Edema: Yes (less edema bilaterally) Labs: CBC, BMP 01/27/17 05:35 01/27/17 05:35 INR, PTT INR 1.91 (0.82-1.09) H 01/27/17 05:35 Assessment/Plan Problem List - Problems (1) CAD (coronary artery disease) Code(s): I25.10 - ATHSCL HEART DISEASE OF [place] CORONARY ARTERY W/O ANG PCTRS (2) CHF (congestive heart failure) Code(s): I50.9 - HEART FAILURE, UNSPECIFIED Qualifiers: Congestive heart failure type: combined Congestive heart failure chronicity: acute on chronic Qualified Code(s): I50.43 - Acute on chronic combined systolic (congestive) and diastolic (congestive) heart failure (3) Chest pain Code(s): R07.9 - CHEST PAIN, UNSPECIFIED (4) Diabetes Code(s): E11.9 - TYPE 2 DIABETES MELLITUS WITHOUT COMPLICATIONS Qualifiers: Diabetes mellitus type: type 2 Diabetes mellitus complication status: with kidney complications Diabetes mellitus complication detail: with chronic kidney disease Chronic kidney disease stage: stage 4 (severe) (5) Presence of permanent cardiac pacemaker Code(s): Z95.0 - PRESENCE OF CARDIAC PACEMAKER (6) Renal insufficiency Code(s): N28.9 - DISORDER OF KIDNEY AND URETER, UNSPECIFIED (7) AICD (automatic cardioverter/defibrillator) present Code(s): Z95.810 - PRESENCE OF AUTOMATIC (IMPLANTABLE) CARDIAC DEFIBRILLATOR (8) Acute and chronic respiratory failure ([id number]) Code(s): J96.20 - ACUTE AND CHR RESP FAILURE, UNSP W HYPOXIA OR HYPERCAPNIA Qualifiers: Respiratory failure complication: hypoxia Qualified Code(s): J96.21 - Acute and chronic respiratory failure with hypoxia (9) Atrial fibrillation Code(s): I48.91 - UNSPECIFIED ATRIAL FIBRILLATION Qualifiers: Atrial fibrillation type: chronic Qualified Code(s): I48.2 - Chronic atrial fibrillation (10) CKD (chronic kidney disease) Code(s): N18.9 - CHRONIC KIDNEY DISEASE, UNSPECIFIED Qualifiers: Chronic kidney disease stage: stage 4 (severe) Qualified Code(s): N18.4 - Chronic kidney disease, stage 4 (severe) (11) COPD (chronic obstructive pulmonary disease) Code(s): J44.9 - CHRONIC OBSTRUCTIVE PULMONARY DISEASE, UNSPECIFIED (12) Cardiomyopathy Code(s): I42.9 - CARDIOMYOPATHY, UNSPECIFIED (13) Diabetes mellitus, insulin dependent (IDDM), uncontrolled Code(s): E10.65 - TYPE 1 DIABETES MELLITUS WITH HYPERGLYCEMIA (14) Dyspnea on exertion Code(s): R06.09 - OTHER FORMS OF DYSPNEA Assessment/Plan Acute on chronic hypoxemic/hypercapneic respiratory failure improving Chf Cardiomyopathy Copd DM A-fib Bipap prn O2 Milrinone Diuresis Inhaled bronchodilators Daily wts' monitor lytes,renal function sleep studies outpatient DR MONTGOMERY
[2017-01-27] MEDS: POTASSIUM CHLORIDE TABS 20 MEQ TABLET.ER (FP) PO SCH ×2 (14:00→22:03)
--- NOTE | 2017-01-27 15:10 | PN ---
Progress Note, Physician Chief Complaint: Mr Perez says he is feeling fine. Denies sob, cp, n/v. - Current Medication List Current Medications: Active Medications Acetaminophen (Tylenol -) 650 mg PO Q6H PRN PRN Reason: PAIN Last Admin: 01/24/17 18:35 Dose: 650 mg Albuterol Sulfate (Ventolin 0.083% Nebulizer Soln -) 1 amp NEB Q6H PRN PRN Reason: SHORT OF BREATH/WHEEZING Last Admin: 01/22/17 22:30 Dose: 1 amp Allopurinol (Zyloprim -) 100 mg PO DAILY [facility] Last Admin: 01/27/17 10:40 Dose: 100 mg Ascorbic Acid (Vitamin C -) 1,000 mg PO DAILY [facility] Last Admin: 01/27/17 10:40 Dose: 1,000 mg Aspirin (Asa -) 81 mg PO DAILY [facility] Last Admin: 01/27/17 10:41 Dose: 81 mg Atorvastatin Calcium (Lipitor -) 40 mg PO HS [facility] Last Admin: 01/26/17 22:58 Dose: 40 mg Bupropion HCl (Wellbutrin -) 75 mg PO DAILY [facility] Last Admin: 01/27/17 10:40 Dose: 75 mg Carvedilol (Coreg -) 6.25 mg PO BID [facility] Last Admin: 01/27/17 10:40 Dose: 6.25 mg Cholecalciferol (Vitamin D3 -) 1,000 unit PO DAILY [facility] Last Admin: 01/27/17 10:41 Dose: 1,000 unit Clopidogrel Bisulfate (Plavix -) 75 mg PO DAILY [facility] Last Admin: 01/27/17 10:40 Dose: 75 mg Docusate Sodium (Colace -) 100 mg PO BID [facility] Last Admin: 01/27/17 10:40 Dose: 100 mg Ferrous Sulfate (Feosol -) 325 mg PO Q48H [facility] Last Admin: 01/26/17 17:14 Dose: 325 mg Furosemide (Lasix Injection -) 100 mg IVPB BIDLASIX [facility] Last Admin: 01/27/17 05:46 Dose: 100 mg Milrinone Lactate/Dextrose (Milrinone 20mg/100ml Ivpb -) 100 mls @ 10.049 mls/ hr IVPB TITR [facility] PRN Reason: 0.35 MCG/KG/MIN Last Admin: 01/26/17 22:58 Dose: 10.049 mls/hr Insulin Aspart (Novolog Vial) 0 units SQ ACHS [facility] PRN Reason: Protocol Last Admin: 01/27/17 06:37 Dose: Not Given Multivitamins/Minerals/Vitamin C (Tab-A-Vit -) 1 tab PO DAILY [facility] Last Admin: 01/27/17 10:41 Dose: 1 tab Potassium Chloride (K-Dur -) 20 meq PO BID [facility] Ranitidine HCl (Zantac -) 75 mg PO DAILY [facility] Last Admin: 01/27/17 10:40 Dose: 75 mg Warfarin Sodium (Coumadin -) 4 mg PO DAILY@1800 [facility] Last Admin: 01/26/17 17:15 Dose: 4 mg - Objective Vital Signs: Vital Signs Temperature 98.2 F 01/27/17 14:54 Pulse Rate 77 01/27/17 14:54 Respiratory Rate 20 01/27/17 14:54 Blood Pressure 125/72 01/27/17 14:54 O2 Sat by Pulse Oximetry (%) 96 01/27/17 11:18 Constitutional: Yes: Well Nourished, No Distress, Calm Cardiovascular: Yes: Regular Rate and Rhythm. No: Gallop, Murmur, Rub Respiratory: Yes: Regular, CTA Bilaterally. No: Rales, Rhonchi, Wheezes Gastrointestinal: Yes: Normal Bowel Sounds, Soft. No: Distention, Tenderness Extremities: Yes: WNL Edema: Yes Edema: LLE: 1+, RLE: 1+ Labs: CBC, BMP 01/27/17 05:35 01/27/17 05:35 INR, PTT INR 1.91 (0.82-1.09) H 01/27/17 05:35 Problem List - Problems (1) CHF (congestive heart failure) Code(s): I50.9 - HEART FAILURE, UNSPECIFIED Qualifiers: Congestive heart failure type: combined Congestive heart failure chronicity: acute on chronic Qualified Code(s): I50.43 - Acute on chronic combined systolic (congestive) and diastolic (congestive) heart failure (2) Acute and chronic respiratory failure ([id number]) Code(s): J96.20 - ACUTE AND CHR RESP FAILURE, UNSP W HYPOXIA OR HYPERCAPNIA Qualifiers: Respiratory failure complication: hypoxia Qualified Code(s): J96.21 - Acute and chronic respiratory failure with hypoxia (3) CAD (coronary artery disease) Code(s): I25.10 - ATHSCL HEART DISEASE OF [place] CORONARY ARTERY W/O ANG PCTRS (4) Diabetes Code(s): E11.9 - TYPE 2 DIABETES MELLITUS WITHOUT COMPLICATIONS Qualifiers: Diabetes mellitus type: type 2 Diabetes mellitus complication status: with kidney complications Diabetes mellitus complication detail: with chronic kidney disease Chronic kidney disease stage: stage 4 (severe) (5) AICD (automatic cardioverter/defibrillator) present Code(s): Z95.810 - PRESENCE OF AUTOMATIC (IMPLANTABLE) CARDIAC DEFIBRILLATOR (6) CKD (chronic kidney disease) Code(s): N18.9 - CHRONIC KIDNEY DISEASE, UNSPECIFIED Qualifiers: Chronic kidney disease stage: stage 4 (severe) Qualified Code(s): N18.4 - Chronic kidney disease, stage 4 (severe) (7) COPD (chronic obstructive pulmonary disease) Code(s): J44.9 - CHRONIC OBSTRUCTIVE PULMONARY DISEASE, UNSPECIFIED Assessment/Plan (1) CHF (congestive heart failure) Assessment/Plan: -end stage, on chronic milrinone -cardiology note reviewed -continue IV lasix Code(s): I50.9 - HEART FAILURE, UNSPECIFIED Qualifiers: Congestive heart failure type: combined Congestive heart failure chronicity: acute on chronic Qualified Code(s): I50.43 - Acute on chronic combined systolic (congestive) and diastolic (congestive) heart failure (2) Acute and chronic respiratory failure ([id number]) Assessment/Plan: -continue oxygen supplementation -may benefit from outpatient sleep study Code(s): J96.20 - ACUTE AND CHR RESP FAILURE, UNSP W HYPOXIA OR HYPERCAPNIA Qualifiers: Respiratory failure complication: hypoxia Qualified Code(s): J96.21 - Acute and chronic respiratory failure with hypoxia (3) CAD (coronary artery disease) Assessment/Plan: -at baseline -no chest pain -cardiology following -continue current management Code(s): I25.10 - ATHSCL HEART DISEASE OF [place] CORONARY ARTERY W/O ANG PCTRS (4) Diabetes Assessment/Plan: -diabetic diet -FSBS and SSI Code(s): E11.9 - TYPE 2 DIABETES MELLITUS WITHOUT COMPLICATIONS Qualifiers: Diabetes mellitus type: type 2 Diabetes mellitus complication status: with kidney complications Diabetes mellitus complication detail: with chronic kidney disease Chronic kidney disease stage: stage 4 (severe) Qualified Code(s): - (5) AICD (automatic cardioverter/defibrillator) present Assessment/Plan: -on chronic coumadin -continue coumadin Code(s): Z95.810 - PRESENCE OF AUTOMATIC (IMPLANTABLE) CARDIAC DEFIBRILLATOR (6) CKD (chronic kidney disease) Assessment/Plan: -stable Code(s): N18.9 - CHRONIC KIDNEY DISEASE, UNSPECIFIED Qualifiers: Chronic kidney disease stage: stage 4 (severe) Qualified Code(s): N18.4 - Chronic kidney disease, stage 4 (severe) (7) COPD (chronic obstructive pulmonary disease) Assessment/Plan: -stable Code(s): J44.9 - CHRONIC OBSTRUCTIVE PULMONARY DISEASE, UNSPECIFIED Qualified Code(s): -
[2017-01-27] MEDS: WARFARIN NA 2 MG TABLET (UD) PO SCH (18:26)
[2017-01-27] MEDS: MILRINONE 20MG/100ML IVPB - 100 ML IVPB SCH ×2 (20:45→20:46)
[2017-01-27] MEDS: ATORVASTATIN CA 40 MG TABLET (FP) PO SCH (22:03)
[2017-01-28] MEDS: FUROSEMIDE 100 MG/10 ML INJECTABLE VIAL IVPB SCH ×3 (05:53→15:31)
[2017-01-28] MEDS: INSULIN (NOVOLOG) ASPART 100 UNITS/ML 10ML VIAL SQ SCH ×4 (06:01→21:14)
[2017-01-28 07:13] LABS: BASOPHIL 0.4 % (0-2.0); EOSINOPHIL 2.3 % (0-4.5); MCH 26.5 pg (25.7-33.7); MCHC 32.7 g/dl (32.0-35.9); MEAN PLT VOLUME 8.3 fl (7.5-11.1); NEUTROPHILS 70.1 % (42.8-82.8); PLATELET COUNT 187 K/MM3 (134-434); RDW 18.4 % (11.9-15.9); WHITE BLOOD COUNT 8.1 K/mm3 (4.0-10.0)
[2017-01-28 07:30] LABS: INR 1.85 (0.82-1.09); PROTHROMBIN TIME (PATIENT) 20.6 SEC (9.98-11.88)
[2017-01-28 07:37] LABS: CALCIUM 8.9 mg/dL (8.5-10.1); COCKROFT - GAULT 45.24; CREATININE 1.8 mg/dL (0.7-1.3); MAGNESIUM 2.4 mg/dL (1.8-2.4); PHOSPHOROUS 3.4 mg/dL (2.5-4.9)
--- NOTE | 2017-01-28 10:23 | PN ---
Progress Note (short form) - Note Progress Note: PULMONARY OOB TO CHAIR SUBJECTIVE IMPROVEMENT VSS/AFEBRILE ANICTERIC BIBASILAR CRACKLES MINIMAL S1S2 OBESE 1+ EDEMA ANKLES LABS/MEDS/NOTES/IMAGING REVIEWED Acute on chronic hypoxemic/hypercapneic respiratory failure resolving Chf Cardiomyopathy Copd DM A-fib Bipap prn VM O2 as needed Milrinone Diuresis Inhaled bronchodilators Daily wts' monitor lytes,renal function sleep studies outpatient overall improvement Mark SEE MD
[2017-01-28] MEDS ORDERED: WARFARIN NA 2 MG TABLET (UD) PO SCH (10:47)
--- NOTE | 2017-01-28 10:58 | PN ---
Progress Note, Physician Chief Complaint: Mr Perez says he is feeling fine. Denies sob, cp, n/v. - Current Medication List Current Medications: Active Medications Acetaminophen (Tylenol -) 650 mg PO Q6H PRN PRN Reason: PAIN Last Admin: 01/24/17 18:35 Dose: 650 mg Allopurinol (Zyloprim -) 100 mg PO DAILY [facility] Last Admin: 01/27/17 10:40 Dose: 100 mg Ascorbic Acid (Vitamin C -) 1,000 mg PO DAILY [facility] Last Admin: 01/27/17 10:40 Dose: 1,000 mg Aspirin (Asa -) 81 mg PO DAILY [facility] Last Admin: 01/27/17 10:41 Dose: 81 mg Atorvastatin Calcium (Lipitor -) 40 mg PO HS [facility] Last Admin: 01/27/17 22:03 Dose: 40 mg Bupropion HCl (Wellbutrin -) 75 mg PO DAILY [facility] Last Admin: 01/27/17 10:40 Dose: 75 mg Carvedilol (Coreg -) 6.25 mg PO BID [facility] Last Admin: 01/27/17 22:03 Dose: 6.25 mg Cholecalciferol (Vitamin D3 -) 1,000 unit PO DAILY [facility] Last Admin: 01/27/17 10:41 Dose: 1,000 unit Clopidogrel Bisulfate (Plavix -) 75 mg PO DAILY [facility] Last Admin: 01/27/17 10:40 Dose: 75 mg Docusate Sodium (Colace -) 100 mg PO BID [facility] Last Admin: 01/27/17 22:02 Dose: 100 mg Ferrous Sulfate (Feosol -) 325 mg PO Q48H [facility] Last Admin: 01/26/17 17:14 Dose: 325 mg Furosemide (Lasix Injection -) 100 mg IVPB BIDLASIX [facility] Last Admin: 01/28/17 06:01 Dose: Not Given Milrinone Lactate/Dextrose (Milrinone 20mg/100ml Ivpb -) 100 mls @ 10.049 mls/ hr IVPB TITR [facility] PRN Reason: 0.35 MCG/KG/MIN Last Admin: 01/27/17 20:46 Dose: 10.049 mls/hr Insulin Aspart (Novolog Vial) 0 units SQ ACHS [facility] PRN Reason: Protocol Last Admin: 01/28/17 06:01 Dose: Not Given Multivitamins/Minerals/Vitamin C (Tab-A-Vit -) 1 tab PO DAILY [facility] Last Admin: 01/27/17 10:41 Dose: 1 tab Potassium Chloride (K-Dur -) 20 meq PO BID [facility] Last Admin: 01/27/17 22:03 Dose: 20 meq Ranitidine HCl (Zantac -) 75 mg PO DAILY [facility] Last Admin: 01/27/17 10:40 Dose: 75 mg Warfarin Sodium (Coumadin -) 6 mg PO DAILY@1800 [facility] - Objective Vital Signs: Vital Signs Temperature 98.4 F 01/28/17 10:00 Pulse Rate 72 01/28/17 10:00 Respiratory Rate 20 01/28/17 10:00 Blood Pressure 101/72 01/28/17 10:00 O2 Sat by Pulse Oximetry (%) 96 01/28/17 10:00 Constitutional: Yes: Well Nourished, No Distress, Calm Cardiovascular: Yes: Regular Rate and Rhythm. No: Gallop, Murmur, Rub Respiratory: Yes: Regular, On Nasal O2, Rales (minimal). No: Rhonchi, Wheezes Gastrointestinal: Yes: Normal Bowel Sounds, Soft. No: Distention, Tenderness Extremities: Yes: WNL Edema: Yes Edema: LLE: 1+, RLE: 1+ Labs: CBC, BMP 01/28/17 05:35 01/28/17 05:35 INR, PTT INR 1.85 (0.82-1.09) H 01/28/17 05:35 Problem List - Problems (1) CHF (congestive heart failure) Code(s): I50.9 - HEART FAILURE, UNSPECIFIED Qualifiers: Congestive heart failure type: combined Congestive heart failure chronicity: acute on chronic Qualified Code(s): I50.43 - Acute on chronic combined systolic (congestive) and diastolic (congestive) heart failure (2) Acute and chronic respiratory failure ([id number]) Code(s): J96.20 - ACUTE AND CHR RESP FAILURE, UNSP W HYPOXIA OR HYPERCAPNIA Qualifiers: Respiratory failure complication: hypoxia Qualified Code(s): J96.21 - Acute and chronic respiratory failure with hypoxia (3) CAD (coronary artery disease) Code(s): I25.10 - ATHSCL HEART DISEASE OF [place] CORONARY ARTERY W/O ANG PCTRS (4) Diabetes Code(s): E11.9 - TYPE 2 DIABETES MELLITUS WITHOUT COMPLICATIONS Qualifiers: Diabetes mellitus type: type 2 Diabetes mellitus complication status: with kidney complications Diabetes mellitus complication detail: with chronic kidney disease Chronic kidney disease stage: stage 4 (severe) (5) AICD (automatic cardioverter/defibrillator) present Code(s): Z95.810 - PRESENCE OF AUTOMATIC (IMPLANTABLE) CARDIAC DEFIBRILLATOR (6) CKD (chronic kidney disease) Code(s): N18.9 - CHRONIC KIDNEY DISEASE, UNSPECIFIED Qualifiers: Chronic kidney disease stage: stage 4 (severe) Qualified Code(s): N18.4 - Chronic kidney disease, stage 4 (severe) (7) COPD (chronic obstructive pulmonary disease) Code(s): J44.9 - CHRONIC OBSTRUCTIVE PULMONARY DISEASE, UNSPECIFIED Assessment/Plan (1) CHF (congestive heart failure) Assessment/Plan: -end stage, on chronic milrinone -cardiology following -continue IV lasix Code(s): I50.9 - HEART FAILURE, UNSPECIFIED Qualifiers: Congestive heart failure type: combined Congestive heart failure chronicity: acute on chronic Qualified Code(s): I50.43 - Acute on chronic combined systolic (congestive) and diastolic (congestive) heart failure (2) Acute and chronic respiratory failure ([id number]) Assessment/Plan: -continue oxygen supplementation -may benefit from outpatient sleep study Code(s): J96.20 - ACUTE AND CHR RESP FAILURE, UNSP W HYPOXIA OR HYPERCAPNIA Qualifiers: Respiratory failure complication: hypoxia Qualified Code(s): J96.21 - Acute and chronic respiratory failure with hypoxia (3) CAD (coronary artery disease) Assessment/Plan: -at baseline -no chest pain -cardiology following -continue current management Code(s): I25.10 - ATHSCL HEART DISEASE OF [place] CORONARY ARTERY W/O ANG PCTRS (4) Diabetes Assessment/Plan: -diabetic diet -FSBS and SSI Code(s): E11.9 - TYPE 2 DIABETES MELLITUS WITHOUT COMPLICATIONS Qualifiers: Diabetes mellitus type: type 2 Diabetes mellitus complication status: with kidney complications Diabetes mellitus complication detail: with chronic kidney disease Chronic kidney disease stage: stage 4 (severe) Qualified Code(s): - (5) AICD (automatic cardioverter/defibrillator) present Assessment/Plan: -on chronic coumadin -continue coumadin, increase to 6mg since subtherapeutic Code(s): Z95.810 - PRESENCE OF AUTOMATIC (IMPLANTABLE) CARDIAC DEFIBRILLATOR (6) CKD (chronic kidney disease) Assessment/Plan: -stable Code(s): N18.9 - CHRONIC KIDNEY DISEASE, UNSPECIFIED Qualifiers: Chronic kidney disease stage: stage 4 (severe) Qualified Code(s): N18.4 - Chronic kidney disease, stage 4 (severe) (7) COPD (chronic obstructive pulmonary disease) Assessment/Plan: -stable Code(s): J44.9 - CHRONIC OBSTRUCTIVE PULMONARY DISEASE, UNSPECIFIED Qualified Code(s): -
[2017-01-28] MEDS: CLOPIDOGREL BISULFATE 75 MG TABLET (FP) PO SCH (11:47)
[2017-01-28] MEDS: POTASSIUM CHLORIDE TABS 20 MEQ TABLET.ER (FP) PO SCH ×2 (11:47→21:28)
[2017-01-28] MEDS: CARVEDILOL 6.25 MG TABLET (FP) PO SCH ×2 (11:47→21:28)
[2017-01-28] MEDS: DOCUSATE SODIUM 100 MG CAPSULE (FP) PO SCH ×2 (11:47→21:28)
[2017-01-28] MEDS: ASPIRIN 81 MG CHEWABLE TABLETS PO SCH (11:47)
[2017-01-28] MEDS: RANITIDINE HCL 150 MG TABLET (FP) PO SCH (11:48)
[2017-01-28] MEDS: MULTIVITAMINS (DAILY MVI) TABLET (FP) PO SCH (11:48)
[2017-01-28] MEDS: buPROPion HCL 75 MG TABLET PO SCH (11:48)
[2017-01-28] MEDS: ASCORBIC ACID 500 MG TABLET (FP) PO SCH (11:48)
[2017-01-28] MEDS: ALLOPURINOL 100 MG TABLET (FP) PO SCH (11:48)
[2017-01-28] MEDS: CHOLECALCIFEROL (VITAMIN D3) 1,000 UNIT TABLET (FP) PO SCH (11:48)
--- NOTE | 2017-01-28 11:50 | PN ---
Progress Note, Physician - Current Medication List Current Medications: Active Medications Acetaminophen (Tylenol -) 650 mg PO Q6H PRN PRN Reason: PAIN Last Admin: 01/24/17 18:35 Dose: 650 mg Allopurinol (Zyloprim -) 100 mg PO DAILY [facility] Last Admin: 01/28/17 11:48 Dose: 100 mg Ascorbic Acid (Vitamin C -) 1,000 mg PO DAILY [facility] Last Admin: 01/28/17 11:48 Dose: 1,000 mg Aspirin (Asa -) 81 mg PO DAILY [facility] Last Admin: 01/28/17 11:47 Dose: 81 mg Atorvastatin Calcium (Lipitor -) 40 mg PO HS [facility] Last Admin: 01/27/17 22:03 Dose: 40 mg Bupropion HCl (Wellbutrin -) 75 mg PO DAILY [facility] Last Admin: 01/28/17 11:48 Dose: 75 mg Carvedilol (Coreg -) 6.25 mg PO BID [facility] Last Admin: 01/28/17 11:47 Dose: 6.25 mg Cholecalciferol (Vitamin D3 -) 1,000 unit PO DAILY [facility] Last Admin: 01/28/17 11:48 Dose: 1,000 unit Clopidogrel Bisulfate (Plavix -) 75 mg PO DAILY [facility] Last Admin: 01/28/17 11:47 Dose: 75 mg Docusate Sodium (Colace -) 100 mg PO BID [facility] Last Admin: 01/28/17 11:47 Dose: 100 mg Ferrous Sulfate (Feosol -) 325 mg PO Q48H [facility] Last Admin: 01/26/17 17:14 Dose: 325 mg Furosemide (Lasix Injection -) 100 mg IVPB BIDLASIX [facility] Last Admin: 01/28/17 06:01 Dose: Not Given Milrinone Lactate/Dextrose (Milrinone 20mg/100ml Ivpb -) 100 mls @ 10.049 mls/ hr IVPB TITR [facility] PRN Reason: 0.35 MCG/KG/MIN Last Admin: 01/27/17 20:46 Dose: 10.049 mls/hr Insulin Aspart (Novolog Vial) 0 units SQ ACHS [facility] PRN Reason: Protocol Last Admin: 01/28/17 06:01 Dose: Not Given Multivitamins/Minerals/Vitamin C (Tab-A-Vit -) 1 tab PO DAILY [facility] Last Admin: 01/28/17 11:48 Dose: 1 tab Potassium Chloride (K-Dur -) 20 meq PO BID [facility] Last Admin: 01/28/17 11:47 Dose: 20 meq Ranitidine HCl (Zantac -) 75 mg PO DAILY [facility] Last Admin: 01/28/17 11:48 Dose: 75 mg Warfarin Sodium (Coumadin -) 6 mg PO DAILY@1800 [facility] - Objective Vital Signs: Vital Signs Temperature 98.4 F 01/28/17 10:00 Pulse Rate 72 01/28/17 10:00 Respiratory Rate 20 01/28/17 10:00 Blood Pressure 101/72 01/28/17 10:00 O2 Sat by Pulse Oximetry (%) 96 01/28/17 10:00 Constitutional: Yes: No Distress Eyes: Yes: WNL HENT: Yes: WNL Neck: Yes: Trachea Midline Cardiovascular: Yes: Regular Rate and Rhythm Respiratory: Yes: CTA Bilaterally Edema: LLE: Trace, RLE: Trace Labs: CBC, BMP 01/28/17 05:35 01/28/17 05:35 INR, PTT INR 1.85 (0.82-1.09) H 01/28/17 05:35 Assessment/Plan a/p: 76 yo with h/o IDDM, COPD (O2 dependant) HTN, HLD, Afib (on coumadin), CAD s/p CABG 2012, end stage CHF with ICD placement (on milrinone pump), PVD, BPH here with weight gain/sob. chronic end stage systolic heart failure s/p ICD, on home milrinone infusion/ acute exacerbation: - prior reports have dry weight around 211 lbs, but patient and family feel that this is over dry weight. Clinical exam consistent with volume overload - home regimen recently increased on discharge last week to torsemide 80 mg/40 mg. patient takes metolazone prn. - cont milrinone at patient's home maintenance dose (on chronic infusion destination therapy)--0.35 mcg/kg/min. Followed by heart failure at [place] --> according to their notes patient has declined further advanced therapies. - cont home coreg. Per Dr. boyd's office notes has not been on ALESSANDRA due to blood pressure limitations and fluctuating creatinine. --> would hold entresto and aldactone for now (started here). Consider resuming as outpatient per patient's outpatient CHF and cardiology doctors. - 01/23 previously diuresed on lasix 80 mg IV BID on prior admits, but repeat weight this evening continues to trend up despite receiving that regimen today. Uptitrate lasix regimen to 100 mg bid. - 01/24: uptitration of lasix limited today due to hypotension this morning ( received entresto, aldactone yesterday). Will try to uptitrate regimen later today if bp improves. - 01/25: wt still up, cr stable. will cont lasix 100 iv bid but also give metolazone 5 mg this afternoon. - 01/26: cr stable, wt down slightly, cont with lasix 100 iv bid and metolazone this afternoon - 01/28: cr stable, wt down significantly today (203). cont lasix 100 iv bid. Low K but on standing K replacement. - Continue Daily weights, bmp, intake/outake s/p ICD - recent office icd check with stable function afib - currently rate controlled on coreg - cont coumadin per INR
[2017-01-28] MEDS ORDERED: INSULIN (NOVOLOG) ASPART 100 UNITS/ML 10ML VIAL ONE (12:25)
[2017-01-28] MEDS: FERROUS SO4 325 MG TABLET (FP) PO SCH (14:37)
[2017-01-28] MEDS: WARFARIN NA 3 MG TABLET PO SCH (17:21)
[2017-01-28] MEDS: ATORVASTATIN CA 40 MG TABLET (FP) PO SCH (21:28)
[2017-01-29] MEDS: MILRINONE 20MG/100ML IVPB - 100 ML IVPB SCH ×3 (05:38→21:27)
[2017-01-29] MEDS: FUROSEMIDE 100 MG/10 ML INJECTABLE VIAL IVPB SCH ×2 (05:38→15:59)
[2017-01-29] MEDS: INSULIN (NOVOLOG) ASPART 100 UNITS/ML 10ML VIAL SQ SCH ×4 (06:23→22:45)
[2017-01-29 07:23] LABS: CALCIUM 9.2 mg/dL (8.5-10.1); COCKROFT - GAULT 47.74; CREATININE 1.7 mg/dL (0.7-1.3); MAGNESIUM 2.5 mg/dL (1.8-2.4); PHOSPHOROUS 3.6 mg/dL (2.5-4.9)
[2017-01-29 08:20] LABS: INR 1.98 (0.82-1.09); PROTHROMBIN TIME (PATIENT) 22.1 SEC (9.98-11.88)
[2017-01-29 08:49] LABS: BASOPHIL 0.5 % (0-2.0); MEAN CELL VOLUME 81.3 fl (80-96); NEUTROPHILS 71.1 % (42.8-82.8); PLATELET COUNT 200 K/MM3 (134-434); RDW 17.9 % (11.9-15.9); WHITE BLOOD COUNT 7.9 K/mm3 (4.0-10.0)
[2017-01-29] MEDS: CARVEDILOL 6.25 MG TABLET (FP) PO SCH ×2 (09:23→21:27)
[2017-01-29] MEDS: RANITIDINE HCL 150 MG TABLET (FP) PO SCH (09:23)
[2017-01-29] MEDS: POTASSIUM CHLORIDE TABS 20 MEQ TABLET.ER (FP) PO SCH ×2 (09:23→21:27)
[2017-01-29] MEDS: CHOLECALCIFEROL (VITAMIN D3) 1,000 UNIT TABLET (FP) PO SCH (09:23)
[2017-01-29] MEDS: MULTIVITAMINS (DAILY MVI) TABLET (FP) PO SCH (09:23)
[2017-01-29] MEDS: ASPIRIN 81 MG CHEWABLE TABLETS PO SCH (09:23)
--- NOTE | 2017-01-29 09:25 | PN ---
Progress Note, Physician History of Present Illness: No events overnight No complaints today Tele V-paced - Current Medication List Current Medications: Active Medications Acetaminophen (Tylenol -) 650 mg PO Q6H PRN PRN Reason: PAIN Last Admin: 01/24/17 18:35 Dose: 650 mg Allopurinol (Zyloprim -) 100 mg PO DAILY [facility] Last Admin: 01/28/17 11:48 Dose: 100 mg Ascorbic Acid (Vitamin C -) 1,000 mg PO DAILY [facility] Last Admin: 01/28/17 11:48 Dose: 1,000 mg Aspirin (Asa -) 81 mg PO DAILY [facility] Last Admin: 01/28/17 11:47 Dose: 81 mg Atorvastatin Calcium (Lipitor -) 40 mg PO HS [facility] Last Admin: 01/28/17 21:28 Dose: 40 mg Bupropion HCl (Wellbutrin -) 75 mg PO DAILY [facility] Last Admin: 01/28/17 11:48 Dose: 75 mg Carvedilol (Coreg -) 6.25 mg PO BID [facility] Last Admin: 01/28/17 21:28 Dose: 6.25 mg Cholecalciferol (Vitamin D3 -) 1,000 unit PO DAILY [facility] Last Admin: 01/28/17 11:48 Dose: 1,000 unit Clopidogrel Bisulfate (Plavix -) 75 mg PO DAILY [facility] Last Admin: 01/28/17 11:47 Dose: 75 mg Docusate Sodium (Colace -) 100 mg PO BID [facility] Last Admin: 01/28/17 21:28 Dose: 100 mg Ferrous Sulfate (Feosol -) 325 mg PO Q48H [facility] Last Admin: 01/28/17 14:37 Dose: 325 mg Furosemide (Lasix Injection -) 100 mg IVPB BIDLASIX [facility] Last Admin: 01/29/17 05:38 Dose: 100 mg Milrinone Lactate/Dextrose (Milrinone 20mg/100ml Ivpb -) 100 mls @ 10.049 mls/ hr IVPB TITR [facility] PRN Reason: 0.35 MCG/KG/MIN Last Admin: 01/29/17 05:39 Dose: Not Given Insulin Aspart (Novolog Vial) 0 units SQ ACHS [facility] PRN Reason: Protocol Last Admin: 01/28/17 21:14 Dose: 3 units Multivitamins/Minerals/Vitamin C (Tab-A-Vit -) 1 tab PO DAILY [facility] Last Admin: 01/28/17 11:48 Dose: 1 tab Potassium Chloride (K-Dur -) 20 meq PO BID [facility] Last Admin: 01/28/17 21:28 Dose: 20 meq Ranitidine HCl (Zantac -) 75 mg PO DAILY [facility] Last Admin: 01/28/17 11:48 Dose: 75 mg Warfarin Sodium (Coumadin -) 6 mg PO DAILY@1800 [facility] Last Admin: 01/28/17 17:21 Dose: 6 mg - Objective Vital Signs: Vital Signs Temperature 97.8 F 01/29/17 02:00 Pulse Rate 75 01/29/17 05:48 Respiratory Rate 18 01/29/17 05:48 Blood Pressure 116/70 01/29/17 05:48 O2 Sat by Pulse Oximetry (%) 94 L 01/29/17 06:34 Constitutional: Yes: No Distress, Calm Eyes: Yes: WNL HENT: Yes: WNL Neck: Yes: WNL Cardiovascular: Yes: Regular Rate and Rhythm Respiratory: Yes: CTA Bilaterally Gastrointestinal: Yes: WNL Edema: Yes Edema: LLE: 1+ (warm), RLE: 1+ (warm) Labs: CBC, BMP 01/29/17 05:35 01/29/17 05:35 INR, PTT INR 1.98 (0.82-1.09) H 01/29/17 05:35 Assessment/Plan a/p: 76 yo with h/o IDDM, COPD (O2 dependant) HTN, HLD, Afib (on coumadin), CAD s/p CABG 2012, end stage CHF with ICD placement (on milrinone pump), PVD, BPH here with weight gain/sob. chronic end stage systolic heart failure s/p ICD, on home milrinone infusion/ acute exacerbation: - prior reports have dry weight around 211 lbs, but patient and family feel that this is over dry weight. Clinical exam consistent with volume overload - home regimen recently increased on discharge last week to torsemide 80 mg/40 mg. patient takes metolazone prn. - cont milrinone at patient's home maintenance dose (on chronic infusion destination therapy)--0.35 mcg/kg/min. Followed by heart failure at [place] --> according to their notes patient has declined further advanced therapies. - cont home coreg. Per Dr. boyd's office notes has not been on ALESSANDRA due to blood pressure limitations and fluctuating creatinine. --> would hold entresto and aldactone for now (started here). Consider resuming as outpatient per patient's outpatient CHF and cardiology doctors. - 01/23 previously diuresed on lasix 80 mg IV BID on prior admits, but repeat weight this evening continues to trend up despite receiving that regimen today. Uptitrate lasix regimen to 100 mg bid. - 01/24: uptitration of lasix limited today due to hypotension this morning ( received entresto, aldactone yesterday). Will try to uptitrate regimen later today if bp improves. - 01/25: wt still up, cr stable. will cont lasix 100 iv bid but also give metolazone 5 mg this afternoon. - 01/26: cr stable, wt down slightly, cont with lasix 100 iv bid and metolazone this afternoon - 01/28: cr stable, wt down significantly today (203). cont lasix 100 iv bid. Low K but on standing K replacement. 01/29: Weight continues to decline 207 today with stable BUN/Cr. Continue current regimen. Dry weight goal approx 200# - Continue Daily weights, bmp, intake/outake s/p ICD - recent office icd check with stable function afib - currently rate controlled on coreg - cont coumadin per INR
[2017-01-29] MEDS: CLOPIDOGREL BISULFATE 75 MG TABLET (FP) PO SCH (09:27)
[2017-01-29] MEDS: buPROPion HCL 75 MG TABLET PO SCH (09:28)
[2017-01-29] MEDS: DOCUSATE SODIUM 100 MG CAPSULE (FP) PO SCH ×2 (09:28→21:27)
[2017-01-29] MEDS: ALLOPURINOL 100 MG TABLET (FP) PO SCH (09:28)
[2017-01-29] MEDS: ASCORBIC ACID 500 MG TABLET (FP) PO SCH (09:28)
[2017-01-29] MEDS ORDERED: INSULIN (NOVOLOG) ASPART 100 UNITS/ML 10ML VIAL ONE ×2 (11:50→21:05)
--- NOTE | 2017-01-29 12:46 | PN ---
Progress Note, Physician Chief Complaint: Mr Perez says he is feeling fine. Denies sob, cp, n/v. - Current Medication List Current Medications: Active Medications Acetaminophen (Tylenol -) 650 mg PO Q6H PRN PRN Reason: PAIN Last Admin: 01/24/17 18:35 Dose: 650 mg Allopurinol (Zyloprim -) [address] [facility] Last Admin: 01/29/17 09:28 Dose: 100 mg Ascorbic Acid (Vitamin C -) 1,[address] [facility] Last Admin: 01/29/17 09:28 Dose: 1,000 mg Aspirin (Asa -) [address] [facility] Last Admin: 01/29/17 09:23 Dose: 81 mg Atorvastatin Calcium (Lipitor -) [address] [facility] Last Admin: 01/28/17 21:28 Dose: 40 mg Bupropion HCl (Wellbutrin -) [address] [facility] Last Admin: 01/29/17 09:28 Dose: 75 mg Carvedilol (Coreg -) 6.[address] [facility] Last Admin: 01/29/17 09:23 Dose: 6.25 mg Cholecalciferol (Vitamin D3 -) 1,[address] [facility] Last Admin: 01/29/17 09:23 Dose: 1,000 unit Clopidogrel Bisulfate (Plavix -) [address] [facility] Last Admin: 01/29/17 09:27 Dose: 75 mg Docusate Sodium (Colace -) [address] [facility] Last Admin: 01/29/17 09:28 Dose: 100 mg Ferrous Sulfate (Feosol -) [address] [facility] Last Admin: 01/28/17 14:37 Dose: 325 mg Furosemide (Lasix Injection -) [address] [facility] Last Admin: 01/29/17 05:38 Dose: 100 mg Milrinone Lactate/Dextrose (Milrinone 20mg/100ml Ivpb -) 100 mls @ 10.049 mls/ hr IVPB TITR [facility] PRN Reason: 0.35 MCG/KG/MIN Last Admin: 01/29/17 05:39 Dose: Not Given Insulin Aspart (Novolog Vial) [address] [facility] PRN Reason: Protocol Last Admin: 01/28/17 21:14 Dose: 3 units Multivitamins/Minerals/Vitamin C (Tab-A-Vit -) [address] [facility] Last Admin: 01/29/17 09:23 Dose: 1 tab Potassium Chloride (K-Dur -) [address] [facility] Last Admin: 01/29/17 09:23 Dose: 20 meq Ranitidine HCl (Zantac -) [address] [facility] Last Admin: 01/29/17 09:23 Dose: 75 mg Warfarin Sodium (Coumadin -) 6 mg PO DAILY@1800 [facility] Last Admin: 01/28/17 17:21 Dose: 6 mg - Objective Vital Signs: Vital Signs Temperature 98 F 01/29/17 10:00 Pulse Rate 77 01/29/17 10:00 Respiratory Rate 18 01/29/17 10:00 Blood Pressure 114/66 01/29/17 10:00 O2 Sat by Pulse Oximetry (%) 94 L 01/29/17 10:00 Constitutional: Yes: Well Nourished, No Distress, Calm Cardiovascular: Yes: Regular Rate and Rhythm. No: Gallop, Murmur, Rub Respiratory: Yes: Regular, CTA Bilaterally. No: Rales, Rhonchi, Wheezes Gastrointestinal: Yes: Normal Bowel Sounds, Soft. No: Distention, Tenderness Extremities: Yes: WNL Edema: Yes Edema: LLE: 1+, RLE: 1+ Labs: CBC, BMP 01/29/17 05:35 01/29/17 05:35 INR, PTT INR 1.98 (0.82-1.09) H 01/29/17 05:35 Problem List - Problems (1) CHF (congestive heart failure) Code(s): I50.9 - HEART FAILURE, UNSPECIFIED Qualifiers: Congestive heart failure type: combined Congestive heart failure chronicity: acute on chronic Qualified Code(s): I50.43 - Acute on chronic combined systolic (congestive) and diastolic (congestive) heart failure (2) Acute and chronic respiratory failure ([id number]) Code(s): J96.20 - ACUTE AND CHR RESP FAILURE, UNSP W HYPOXIA OR HYPERCAPNIA Qualifiers: Respiratory failure complication: hypoxia Qualified Code(s): J96.21 - Acute and chronic respiratory failure with hypoxia (3) CAD (coronary artery disease) Code(s): I25.10 - ATHSCL HEART DISEASE OF [place] CORONARY ARTERY W/O ANG PCTRS (4) Diabetes Code(s): E11.9 - TYPE 2 DIABETES MELLITUS WITHOUT COMPLICATIONS Qualifiers: Diabetes mellitus type: type 2 Diabetes mellitus complication status: with kidney complications Diabetes mellitus complication detail: with chronic kidney disease Chronic kidney disease stage: stage 4 (severe) (5) AICD (automatic cardioverter/defibrillator) present Code(s): Z95.810 - PRESENCE OF AUTOMATIC (IMPLANTABLE) CARDIAC DEFIBRILLATOR (6) CKD (chronic kidney disease) Code(s): N18.9 - CHRONIC KIDNEY DISEASE, UNSPECIFIED Qualifiers: Chronic kidney disease stage: stage 4 (severe) Qualified Code(s): N18.4 - Chronic kidney disease, stage 4 (severe) (7) COPD (chronic obstructive pulmonary disease) Code(s): J44.9 - CHRONIC OBSTRUCTIVE PULMONARY DISEASE, UNSPECIFIED Assessment/Plan (1) CHF (congestive heart failure) Assessment/Plan: -end stage, on chronic milrinone -cardiology following -continue IV lasix -closer to dry weight Code(s): I50.9 - HEART FAILURE, UNSPECIFIED Qualifiers: Congestive heart failure type: combined Congestive heart failure chronicity: acute on chronic Qualified Code(s): I50.43 - Acute on chronic combined systolic (congestive) and diastolic (congestive) heart failure (2) Acute and chronic respiratory failure ([id number]) Assessment/Plan: -continue oxygen supplementation -may benefit from outpatient sleep study Code(s): J96.20 - ACUTE AND CHR RESP FAILURE, UNSP W HYPOXIA OR HYPERCAPNIA Qualifiers: Respiratory failure complication: hypoxia Qualified Code(s): J96.21 - Acute and chronic respiratory failure with hypoxia (3) CAD (coronary artery disease) Assessment/Plan: -at baseline -no chest pain -cardiology following -continue current management Code(s): I25.10 - ATHSCL HEART DISEASE OF [place] CORONARY ARTERY W/O ANG PCTRS (4) Diabetes Assessment/Plan: -diabetic diet -FSBS and SSI Code(s): E11.9 - TYPE 2 DIABETES MELLITUS WITHOUT COMPLICATIONS Qualifiers: Diabetes mellitus type: type 2 Diabetes mellitus complication status: with kidney complications Diabetes mellitus complication detail: with chronic kidney disease Chronic kidney disease stage: stage 4 (severe) Qualified Code(s): - (5) AICD (automatic cardioverter/defibrillator) present Assessment/Plan: -on chronic coumadin -continue coumadin, increased to 6mg since subtherapeutic -INR 1.9 today Code(s): Z95.810 - PRESENCE OF AUTOMATIC (IMPLANTABLE) CARDIAC DEFIBRILLATOR (6) CKD (chronic kidney disease) Assessment/Plan: -stable Code(s): N18.9 - CHRONIC KIDNEY DISEASE, UNSPECIFIED Qualifiers: Chronic kidney disease stage: stage 4 (severe) Qualified Code(s): N18.4 - Chronic kidney disease, stage 4 (severe) (7) COPD (chronic obstructive pulmonary disease) Assessment/Plan: -stable Code(s): J44.9 - CHRONIC OBSTRUCTIVE PULMONARY DISEASE, UNSPECIFIED Qualified Code(s): -
[2017-01-29] MEDS: WARFARIN NA 3 MG TABLET PO SCH (17:32)
[2017-01-29] MEDS: ATORVASTATIN CA 40 MG TABLET (FP) PO SCH (21:27)
[2017-01-29] MEDS ORDERED: ALBUTEROL SO4 0.083% IH SOL 2.5 MG/3 ML VIAL.NEB. NEB ONE (23:09)
[2017-01-30] MEDS: FUROSEMIDE 100 MG/10 ML INJECTABLE VIAL IVPB SCH ×2 (05:46→14:15)
[2017-01-30] MEDS: INSULIN (NOVOLOG) ASPART 100 UNITS/ML 10ML VIAL SQ SCH ×4 (06:14→21:27)
[2017-01-30 07:53] LABS: CALCIUM 9.5 mg/dL (8.5-10.1); COCKROFT - GAULT 45.17; CREATININE 1.8 mg/dL (0.7-1.3)
[2017-01-30 07:59] LABS: INR 1.04 (0.82-1.09); PROTHROMBIN TIME (PATIENT) 11.5 SEC (9.98-11.88)
--- NOTE | 2017-01-30 08:31 | PN ---
Progress Note, Physician Chief Complaint: chf History of Present Illness: no sob walking alf down the [place] and back; no cp, palpit; legs mildly swollen--moreso than baseline ex cigs - Current Medication List Current Medications: Active Medications Acetaminophen (Tylenol -) 650 mg PO Q6H PRN PRN Reason: PAIN Last Admin: 01/24/17 18:35 Dose: 650 mg Allopurinol (Zyloprim -) 100 mg PO DAILY [facility] Last Admin: 01/29/17 09:28 Dose: 100 mg Ascorbic Acid (Vitamin C -) 1,000 mg PO DAILY [facility] Last Admin: 01/29/17 09:28 Dose: 1,000 mg Aspirin (Asa -) 81 mg PO DAILY [facility] Last Admin: 01/29/17 09:23 Dose: 81 mg Atorvastatin Calcium (Lipitor -) 40 mg PO HS [facility] Last Admin: 01/29/17 21:27 Dose: 40 mg Bupropion HCl (Wellbutrin -) 75 mg PO DAILY [facility] Last Admin: 01/29/17 09:28 Dose: 75 mg Carvedilol (Coreg -) 6.25 mg PO BID [facility] Last Admin: 01/29/17 21:27 Dose: 6.25 mg Cholecalciferol (Vitamin D3 -) 1,000 unit PO DAILY [facility] Last Admin: 01/29/17 09:23 Dose: 1,000 unit Clopidogrel Bisulfate (Plavix -) 75 mg PO DAILY [facility] Last Admin: 01/29/17 09:27 Dose: 75 mg Docusate Sodium (Colace -) 100 mg PO BID [facility] Last Admin: 01/29/17 21:27 Dose: 100 mg Ferrous Sulfate (Feosol -) 325 mg PO Q48H [facility] Last Admin: 01/28/17 14:37 Dose: 325 mg Furosemide (Lasix Injection -) 100 mg IVPB BIDLASIX [facility] Last Admin: 01/30/17 05:46 Dose: 100 mg Milrinone Lactate/Dextrose (Milrinone 20mg/100ml Ivpb -) 100 mls @ 10.049 mls/ hr IVPB TITR [facility] PRN Reason: 0.35 MCG/KG/MIN Last Admin: 01/29/17 21:27 Dose: Not Given Insulin Aspart (Novolog Vial) 0 units SQ ACHS [facility] PRN Reason: Protocol Last Admin: 01/30/17 06:14 Dose: 1 units Multivitamins/Minerals/Vitamin C (Tab-A-Vit -) 1 tab PO DAILY [facility] Last Admin: 01/29/17 09:23 Dose: 1 tab Potassium Chloride (K-Dur -) 20 meq PO BID [facility] Last Admin: 01/29/17 21:27 Dose: 20 meq Ranitidine HCl (Zantac -) 75 mg PO DAILY [facility] Last Admin: 01/29/17 09:23 Dose: 75 mg Warfarin Sodium (Coumadin -) 6 mg PO DAILY@1800 [facility] Last Admin: 01/29/17 17:32 Dose: 6 mg - Objective Vital Signs: Vital Signs Temperature 98.4 F 01/30/17 05:47 Pulse Rate 75 01/30/17 05:47 Respiratory Rate 20 01/30/17 05:47 Blood Pressure 115/69 01/30/17 05:47 O2 Sat by Pulse Oximetry (%) 95 01/29/17 21:00 Constitutional: Yes: No Distress, Calm Eyes: No: Sclera Icterus HENT: No: Nasal Congestion Cardiovascular: Yes: Regular Rate and Rhythm, S1, S2, Other (PMI non diplaced). No: Gallop, Murmur Respiratory: Yes: CTA Bilaterally. No: Accessory Muscle Use, Rales, Wheezes Gastrointestinal: Yes: Normal Bowel Sounds, Soft. No: Tenderness Musculoskeletal: Yes: Other (No kyphosis) Extremities: No: Cold Edema: Yes (trace pretib (elevated)) Integumentary: No: Jaundice Neurological: Yes: Alert, Oriented (x3) Psychiatric: No: Agitated Labs: CBC, BMP 01/29/17 05:35 01/30/17 05:35 INR, PTT INR 1.04 (0.82-1.09) D 01/30/17 05:35 - ....Imaging EKG: Other (tele: AF, Bi-V paced; NSVT x 13b run) Assessment/Plan cxr: congestive changes, similar to priors. echo 05/2016: sev lve, global hk, sev dec lvef, mild rve, nl rv fcn, estefania, mild- mod mr, mv ring, tv ring, mild tr, mild pr, mild phtn, ivc mild dil a/p: 76 yo with h/o IDDM, COPD (O2 dependant) HTN, HLD, Afib (on coumadin), CAD s/p CABG 2012, end stage CHF with ICD placement (on milrinone pump), PVD, BPH here with weight gain/sob. chronic end stage systolic heart failure s/p ICD, on home milrinone infusion/ acute exacerbation: - prior reports have dry weight around 211 lbs, but patient and family feel that this is over dry weight. Clinical exam consistent with volume overload - home regimen recently increased on discharge last week to torsemide 80 mg/40 mg. patient takes metolazone prn. - cont milrinone at patient's home maintenance dose (on chronic infusion destination therapy)--0.35 mcg/kg/min. Followed by heart failure at [facility] --> according to their notes patient has declined further advanced therapies. - cont home coreg. Per Dr. boyd's office notes has not been on ALESSANDRA due to blood pressure limitations and fluctuating creatinine. --> would hold entresto and aldactone for now (started here). Consider resuming as outpatient per patient's outpatient CHF and cardiology doctors. - 01/23 previously diuresed on lasix 80 mg IV BID on prior admits, but repeat weight this evening continues to trend up despite receiving that regimen today. Uptitrate lasix regimen to 100 mg bid. - 01/24: uptitration of lasix limited today due to hypotension this morning ( received entresto, aldactone yesterday). Will try to uptitrate regimen later today if bp improves. - 01/25: wt still up, cr stable. will cont lasix 100 iv bid but also give metolazone 5 mg this afternoon. - 01/26: cr stable, wt down slightly, cont with lasix 100 iv bid and metolazone this afternoon - 01/27: cr stable, wt down significantly today. cont lasix 100 iv bid. will replete k. -01/30: wt trended down daily with lasix 100 iv bid plus metolazone 5mg, then stabilized at 207-208 past 2d without metolazone, down from 216. will repeat metolazone today. -no longer sob, likely euvolemic or close -will change to torsemide 80 po bid -no Entresto here given pt intolerant of adequate dose of ALESSANDRA/ARB (low bp, advanced CKD) -will check bmp as outpt in 2 days, and see me 1-2 wks -incr'd KCL to 40 bid here (aggressive repletion today) NSVT, s/p ICD - recent office icd check with stable function - on max tolerated carvedilol - aggressive K repletion as doing - Mag stable afib - currently rate controlled on coreg - cont coumadin per INR PVD - con't AC, plavix statin. CAD s/p CABG - No anginal symptoms, no signs acs. Con't home ac, plavix, atorvastatin, coreg MARGAUX? wears bipap qhs at home - con't nighttime bipap HTN: controlled on coreg HLD: con't statin. CKD - stable, monitor with diuresis ok for d/c from cv p.o.v.
[2017-01-30] MEDS ORDERED: METOLAZONE 5 MG TABLET PO ONE ×2 (08:45→13:30)
[2017-01-30] MEDS: ASCORBIC ACID 500 MG TABLET (FP) PO SCH (09:08)
[2017-01-30] MEDS: RANITIDINE HCL 150 MG TABLET (FP) PO SCH (09:08)
[2017-01-30] MEDS: CLOPIDOGREL BISULFATE 75 MG TABLET (FP) PO SCH (09:08)
[2017-01-30] MEDS: POTASSIUM CHLORIDE TABS 20 MEQ TABLET.ER (FP) PO SCH ×2 (09:08→21:28)
[2017-01-30] MEDS: CHOLECALCIFEROL (VITAMIN D3) 1,000 UNIT TABLET (FP) PO SCH (09:08)
[2017-01-30] MEDS: DOCUSATE SODIUM 100 MG CAPSULE (FP) PO SCH ×2 (09:08→21:28)
[2017-01-30] MEDS: ALLOPURINOL 100 MG TABLET (FP) PO SCH (09:08)
[2017-01-30] MEDS: buPROPion HCL 75 MG TABLET PO SCH (09:09)
[2017-01-30] MEDS: ASPIRIN 81 MG CHEWABLE TABLETS PO SCH (09:09)
[2017-01-30] MEDS: MULTIVITAMINS (DAILY MVI) TABLET (FP) PO SCH (09:09)
[2017-01-30] MEDS: CARVEDILOL 6.25 MG TABLET (FP) PO SCH ×2 (09:09→21:28)
--- NOTE | 2017-01-30 11:24 | PN ---
Progress Note, Physician History of Present Illness: pulmonary alert,feeling better,-resp distress - Current Medication List Current Medications: Active Medications Acetaminophen (Tylenol -) 650 mg PO Q6H PRN PRN Reason: PAIN Last Admin: 01/24/17 18:35 Dose: 650 mg Allopurinol (Zyloprim -) 100 mg PO DAILY [facility] Last Admin: 01/30/17 09:08 Dose: 100 mg Ascorbic Acid (Vitamin C -) 1,000 mg PO DAILY [facility] Last Admin: 01/30/17 09:08 Dose: 1,000 mg Aspirin (Asa -) 81 mg PO DAILY [facility] Last Admin: 01/30/17 09:09 Dose: 81 mg Atorvastatin Calcium (Lipitor -) 40 mg PO HS [facility] Last Admin: 01/29/17 21:27 Dose: 40 mg Bupropion HCl (Wellbutrin -) 75 mg PO DAILY [facility] Last Admin: 01/30/17 09:09 Dose: 75 mg Carvedilol (Coreg -) 6.25 mg PO BID [facility] Last Admin: 01/30/17 09:09 Dose: 6.25 mg Cholecalciferol (Vitamin D3 -) 1,000 unit PO DAILY [facility] Last Admin: 01/30/17 09:08 Dose: 1,000 unit Clopidogrel Bisulfate (Plavix -) 75 mg PO DAILY [facility] Last Admin: 01/30/17 09:08 Dose: 75 mg Docusate Sodium (Colace -) 100 mg PO BID [facility] Last Admin: 01/30/17 09:08 Dose: 100 mg Ferrous Sulfate (Feosol -) 325 mg PO Q48H [facility] Last Admin: 01/28/17 14:37 Dose: 325 mg Furosemide (Lasix Injection -) 100 mg IVPB BIDLASIX [facility] Last Admin: 01/30/17 05:46 Dose: 100 mg Milrinone Lactate/Dextrose (Milrinone 20mg/100ml Ivpb -) 100 mls @ 10.049 mls/ hr IVPB TITR [facility] PRN Reason: 0.35 MCG/KG/MIN Last Admin: 01/29/17 21:27 Dose: Not Given Insulin Aspart (Novolog Vial) 0 units SQ ACHS [facility] PRN Reason: Protocol Last Admin: 01/30/17 06:14 Dose: 1 units Multivitamins/Minerals/Vitamin C (Tab-A-Vit -) 1 tab PO DAILY [facility] Last Admin: 01/30/17 09:09 Dose: 1 tab Potassium Chloride (K-Dur -) 40 meq PO BID [facility] Last Admin: 01/30/17 09:08 Dose: 40 meq Potassium Chloride (Potassium Chloride Oral Liquid) 40 meq PO ONCE ONE Stop: 01/30/17 16:01 Ranitidine HCl (Zantac -) 75 mg PO DAILY [facility] Last Admin: 01/30/17 09:08 Dose: 75 mg Warfarin Sodium (Coumadin -) 6 mg PO DAILY@1800 [facility] Last Admin: 01/29/17 17:32 Dose: 6 mg - Objective Vital Signs: Vital Signs Temperature 98.7 F 01/30/17 08:00 Pulse Rate 76 01/30/17 08:00 Respiratory Rate 20 01/30/17 08:00 Blood Pressure 125/74 01/30/17 08:00 O2 Sat by Pulse Oximetry (%) 94 L 01/30/17 08:00 Constitutional: Yes: Well Nourished, Calm Eyes: Yes: WNL HENT: Yes: WNL Neck: Yes: Supple Cardiovascular: Yes: Pulse Irregular, S1, S2 Respiratory: Yes: Rales (bilateral rales 1/3 up) Gastrointestinal: Yes: Normal Bowel Sounds, Soft Extremities: Yes: WNL Edema: Yes Labs: CBC, BMP 01/30/17 05:35 INR, PTT INR 1.04 (0.82-1.09) D 01/30/17 05:35 Assessment/Plan Problem List - Problems (1) CAD (coronary artery disease) Code(s): I25.10 - ATHSCL HEART DISEASE OF [place] CORONARY ARTERY W/O ANG PCTRS (2) CHF (congestive heart failure) Code(s): I50.9 - HEART FAILURE, UNSPECIFIED Qualifiers: Congestive heart failure type: combined Congestive heart failure chronicity: acute on chronic Qualified Code(s): I50.43 - Acute on chronic combined systolic (congestive) and diastolic (congestive) heart failure (3) Chest pain Code(s): R07.9 - CHEST PAIN, UNSPECIFIED (4) Diabetes Code(s): E11.9 - TYPE 2 DIABETES MELLITUS WITHOUT COMPLICATIONS Qualifiers: Diabetes mellitus type: type 2 Diabetes mellitus complication status: with kidney complications Diabetes mellitus complication detail: with chronic kidney disease Chronic kidney disease stage: stage 4 (severe) (5) Presence of permanent cardiac pacemaker Code(s): Z95.0 - PRESENCE OF CARDIAC PACEMAKER (6) Renal insufficiency Code(s): N28.9 - DISORDER OF KIDNEY AND URETER, UNSPECIFIED (7) AICD (automatic cardioverter/defibrillator) present Code(s): Z95.810 - PRESENCE OF AUTOMATIC (IMPLANTABLE) CARDIAC DEFIBRILLATOR (8) Acute and chronic respiratory failure ([id number]) Code(s): J96.20 - ACUTE AND CHR RESP FAILURE, UNSP W HYPOXIA OR HYPERCAPNIA Qualifiers: Respiratory failure complication: hypoxia Qualified Code(s): J96.21 - Acute and chronic respiratory failure with hypoxia (9) Atrial fibrillation Code(s): I48.91 - UNSPECIFIED ATRIAL FIBRILLATION Qualifiers: Atrial fibrillation type: chronic Qualified Code(s): I48.2 - Chronic atrial fibrillation (10) CKD (chronic kidney disease) Code(s): N18.9 - CHRONIC KIDNEY DISEASE, UNSPECIFIED Qualifiers: Chronic kidney disease stage: stage 4 (severe) Qualified Code(s): N18.4 - Chronic kidney disease, stage 4 (severe) (11) COPD (chronic obstructive pulmonary disease) Code(s): J44.9 - CHRONIC OBSTRUCTIVE PULMONARY DISEASE, UNSPECIFIED (12) Cardiomyopathy Code(s): I42.9 - CARDIOMYOPATHY, UNSPECIFIED (13) Diabetes mellitus, insulin dependent (IDDM), uncontrolled Code(s): E10.65 - TYPE 1 DIABETES MELLITUS WITH HYPERGLYCEMIA (14) Dyspnea on exertion Code(s): R06.09 - OTHER FORMS OF DYSPNEA Assessment/Plan Acute on chronic hypoxemic/hypercapneic respiratory failure improving Chf Cardiomyopathy Copd DM A-fib Bipap prn O2 Milrinone Diuresis Inhaled bronchodilators Daily wts monitor lytes,renal function replete k sleep studies outpatient DR MONTGOMERY
[2017-01-30] MEDS: MILRINONE 20MG/100ML IVPB - 100 ML IVPB SCH ×2 (12:16→21:29)
--- NOTE | 2017-01-30 15:03 | DS ---
Physical Examination Vital Signs: Vital Signs Temperature 98.7 F 01/30/17 08:00 Pulse Rate 76 01/30/17 08:00 Respiratory Rate 20 01/30/17 08:00 Blood Pressure 125/74 01/30/17 08:00 O2 Sat by Pulse Oximetry (%) 94 L 01/30/17 08:00 Constitutional: Yes: Well Nourished, No Distress, Calm Cardiovascular: Yes: Regular Rate and Rhythm. No: Gallop, Murmur, Rub Respiratory: Yes: Regular, On Nasal O2, Rhonchi. No: Rales, Wheezes Gastrointestinal: Yes: Normal Bowel Sounds, Soft. No: Distention, Tenderness Extremities: Yes: Erythema (chronic) Edema: Yes Edema: LLE: 1+, RLE: 1+ Labs: CBC, BMP 01/29/17 05:35 01/30/17 05:35 Discharge Summary Reason For Visit: CAD (CORONARY ARTERY DISEASE) Current Active Problems CAD (coronary artery disease) (Acute) CHF (congestive heart failure) (Acute) Chest pain (Acute) Cough (Acute) Diabetes (Acute) Presence of permanent cardiac pacemaker (Acute) Renal insufficiency (Acute) Hospital Course: (1) CHF (congestive heart failure) Code(s): I50.9 - HEART FAILURE, UNSPECIFIED Qualifiers: Congestive heart failure type: combined Congestive heart failure chronicity: acute on chronic Qualified Code(s): I50.43 - Acute on chronic combined systolic (congestive) and diastolic (congestive) heart failure (2) Acute and chronic respiratory failure ([id number]) Code(s): J96.20 - ACUTE AND CHR RESP FAILURE, UNSP W HYPOXIA OR HYPERCAPNIA Qualifiers: Respiratory failure complication: hypoxia Qualified Code(s): J96.21 - Acute and chronic respiratory failure with hypoxia (3) CAD (coronary artery disease) Code(s): I25.10 - ATHSCL HEART DISEASE OF [place] CORONARY ARTERY W/O ANG PCTRS (4) Diabetes Code(s): E11.9 - TYPE 2 DIABETES MELLITUS WITHOUT COMPLICATIONS Qualifiers: Diabetes mellitus type: type 2 Diabetes mellitus complication status: with kidney complications Diabetes mellitus complication detail: with chronic kidney disease Chronic kidney disease stage: stage 4 (severe) (5) AICD (automatic cardioverter/defibrillator) present Code(s): Z95.810 - PRESENCE OF AUTOMATIC (IMPLANTABLE) CARDIAC DEFIBRILLATOR (6) CKD (chronic kidney disease) Code(s): N18.9 - CHRONIC KIDNEY DISEASE, UNSPECIFIED Qualifiers: Chronic kidney disease stage: stage 4 (severe) Qualified Code(s): N18.4 - Chronic kidney disease, stage 4 (severe) (7) COPD (chronic obstructive pulmonary disease) Code(s): J44.9 - CHRONIC OBSTRUCTIVE PULMONARY DISEASE, UNSPECIFIED Mr Perez is a 76 year old male who was admitted for acute on chronic respiratory failure secondary to end stage CHF with exacerbation. He was recently discharged but failed outpatient management. He was seen by cardiology and continued on his milrinone gtt. He was placed on IV lasix and was given metolazone as well to aid in diuresis. He tolerated this well and began to lose fluid. He is now euvolemic and safe for discharge. He will be sent on home on torsemide bid. 32 minutes spent in preparation of this discharge Condition: Good - Instructions Diet, Activity, Other Instructions: resume previous diet and activity Referrals: Miguel Valle MD [Staff Physician] - Khang Lopez MD [Primary Care Provider] - Nash Garner MD [Staff Physician] - Disposition: VNS/HOME HEALTH CARE - Home Medications Comprehensive Discharge Medication List: Ambulatory Orders Allopurinol [Zyloprim -] 100 mg PO DAILY 09/10/15 Atorvastatin Ca [Lipitor] 40 mg PO HS 09/10/15 Carvedilol 6.25 mg PO BID 09/10/15 Docusate Sodium [Colace -] 100 mg PO BID 09/10/15 Insulin NPL/Insulin Lispro [Humalog Mix 75-25 Vial] 0 unit SQ PRN 09/10/15 Milrinone Lactate/D5w [Milrinone 0.2 mg/ml in D5w] 0 mg IV DAILY 09/10/15 Ranitidine [Zantac -] 75 mg PO DAILY 09/10/15 Albuterol 0.083% Nebulizer Jewell [Ventolin 0.083% Nebulizer Soln -] 1 amp NEB Q6H PRN #120 amp 09/14/15 Ferrous Sulfate [Feosol] 325 mg PO Q48H ud 04/23/16 Warfarin Na [Coumadin -] 4 mg PO DAILY@1800 09/06/16 Bupropion HCl [Wellbutrin -] 75 mg DAILY 09/08/16 Ascorbic Acid [Vitamin C -] 1,000 mg PO DAILY 11/24/16 Cholecalciferol (Vitamin D3) [Vitamin D -] 1,000 unit PO DAILY 11/24/16 Clopidogrel Bisulfate [Plavix -] 75 mg PO DAILY 11/24/16 Multivitamin [Poly-Vitamin] 1 each PO DAILY 11/24/16 Aspirin [ASA -] 81 mg PO DAILY tab.chew 01/30/17 Potassium Chloride [K-Dur -] 40 meq PO BID #120 tab.sr 01/30/17 Torsemide [Demadex -] 80 mg PO BID #120 tablet 01/30/17
[2017-01-30] MEDS ORDERED: POTASSIUM CHLORIDE ORAL LIQUID 20 MEQ/15 ML PO ONE (16:00)
[2017-01-30] MEDS: FERROUS SO4 325 MG TABLET (FP) PO SCH (16:23)
[2017-01-30] MEDS: WARFARIN NA 3 MG TABLET PO SCH (18:09)
[2017-01-30] MEDS: ATORVASTATIN CA 40 MG TABLET (FP) PO SCH (21:28)
[2017-01-31] MEDS: INSULIN (NOVOLOG) ASPART 100 UNITS/ML 10ML VIAL SQ SCH ×2 (07:07→12:33)
[2017-01-31] MEDS: FUROSEMIDE 100 MG/10 ML INJECTABLE VIAL IVPB SCH ×2 (07:07→08:15)
[2017-01-31 08:04] LABS: CALCIUM 9.4 mg/dL (8.5-10.1); COCKROFT - GAULT 50.62; CREATININE 1.6 mg/dL (0.7-1.3)
[2017-01-31 08:07] VITALS: BP 116/70; TEMP 97.6
[2017-01-31 08:24] LABS: INR 2.44 (0.82-1.09); PROTHROMBIN TIME (PATIENT) 27.3 SEC (9.98-11.88)
[2017-01-31] MEDS: POTASSIUM CHLORIDE TABS 20 MEQ TABLET.ER (FP) PO SCH (10:12)
[2017-01-31] MEDS: ASPIRIN 81 MG CHEWABLE TABLETS PO SCH (10:12)
[2017-01-31] MEDS: ASCORBIC ACID 500 MG TABLET (FP) PO SCH (10:12)
[2017-01-31] MEDS: MULTIVITAMINS (DAILY MVI) TABLET (FP) PO SCH (10:12)
[2017-01-31] MEDS: ALLOPURINOL 100 MG TABLET (FP) PO SCH (10:12)
[2017-01-31] MEDS: RANITIDINE HCL 150 MG TABLET (FP) PO SCH (10:12)
[2017-01-31] MEDS: CARVEDILOL 6.25 MG TABLET (FP) PO SCH (10:12)
[2017-01-31] MEDS: CHOLECALCIFEROL (VITAMIN D3) 1,000 UNIT TABLET (FP) PO SCH (10:12)
[2017-01-31] MEDS: buPROPion HCL 75 MG TABLET PO SCH (10:13)
[2017-01-31] MEDS: CLOPIDOGREL BISULFATE 75 MG TABLET (FP) PO SCH (10:13)
[2017-01-31] MEDS: DOCUSATE SODIUM 100 MG CAPSULE (FP) PO SCH (10:13)
[2017-01-31 11:40] VITALS: PULSE 75
== END 2017-01-31 13:14 | disposition home health service (06) | DRG 291 ==
LOC: JER 03:10 → JERBED 05:35 → J4W 17:16
PROVIDERS: ADMIT Internal Medicine; ATTEND Internal Medicine
PROC: 5A09557 Assistance with Respiratory Ventilation, Greater than 96 Consecutive Hours, Continuous Positive Airway Pressure (ICD-10-PCS; principal; 2017-01-23)
DX: I13.0 Hypertensive heart and chronic kidney disease with heart failure and stage 1 through stage 4 chronic kidney disease, or unspecified chronic kidney disease (principal); I50.43 Acute on chronic combined systolic (congestive) and diastolic (congestive) heart failure; J96.21 Acute and chronic respiratory failure with hypoxia; J96.22 Acute and chronic respiratory failure with hypercapnia; I47.1 Supraventricular tachycardia; E87.2 Acidosis; E11.22 Type 2 diabetes mellitus with diabetic chronic kidney disease; N18.9 Chronic kidney disease, unspecified; Z79.4 Long term (current) use of insulin; R07.9 Chest pain, unspecified; Z95.0 Presence of cardiac pacemaker; J44.9 Chronic obstructive pulmonary disease, unspecified; I48.2 Chronic atrial fibrillation; I42.9 Cardiomyopathy, unspecified; I25.10 Atherosclerotic heart disease of native coronary artery without angina pectoris; Z95.1 Presence of aortocoronary bypass graft; I73.9 Peripheral vascular disease, unspecified; E78.5 Hyperlipidemia, unspecified; Z87.891 Personal history of nicotine dependence; N40.0 Benign prostatic hyperplasia without lower urinary tract symptoms
CPT/HCPCS: 36415; 36600; 71010-TC; 80048; 80053; 81003; 81015; 82550; 82803; 83735; 83880; 84100; 84484; 85025; 85610; 93005; 93010; 93306-TC; 94640; 94660; 97116-GP; 97161; 99284-25

== ENCOUNTER 2017-02-16 23:25 | Inpatient (IN) | payer BC, OTHER ==
--- NOTE | 2017-02-16 23:57 | PDOC ---
History of Present Illness - General History Source: Patient Exam Limitations: No Limitations - History of Present Illness Initial Comments: 02/17/17 00:06 The patient is a 76-year-old male, with a significant past medical history of anemia, asthma, a-fib, CHF, ([place] 2010, defibrillator placement, pacemaker), CAD ( 2 cardiac stents), aortic valve replacement, COPD, HTN, hypercholesterolemia, who presents to the ED with shortness of breath. Patient was seen in the ED on for similar symptoms. At baseline, pt states that he gets short of breath when walking long distances. He is now getting short of breath when taking a few steps. He is also complaining of lightheadedness, cough ( productive of yellow phlegm), and sneezing. Pt also reports noting bright red blood from rectum today. The patient denies any fever, chills, nausea, vomiting, diarrhea, or abdominal pain. The patient denies any chest pain. <Cristine Porter - Last Filed: 02/17/17 02:29> - General History Source: Patient <Caden Steele - Last Filed: 02/20/17 20:16> - General Chief Complaint: Shortness of Breath Stated Complaint: RESPIRATORY Time Seen by Provider: 02/16/17 23:38 Past History <Cristine Porter - Last Filed: 02/17/17 02:29> - Past Medical History Anemia: Yes Asthma: Yes Cancer: No Cardiac Disorders: Yes (CHF, [place] 2010,defibrilator placement,PACEMAKER) CVA: No COPD: Yes CHF: Yes Dementia: No Diabetes: Yes GI Disorders: No Disorders: Yes (BPH) HTN: Yes Hypercholesterolemia: Yes Liver Disease: No Suicide Attempt (Hx): No Seizures: No Thyroid Disease: No - Surgical History Abdominal Surgery: Yes (HERNIA REPAIR 2002) Appendectomy: No Cardiac Surgery: Yes (2 OPEN HEART SURGERIES; TRACH PLACEMENT,PACEMAKER PLACED ) Cholecystectomy: Yes Lung Surgery: No Neurologic Surgery: No Orthopedic Surgery: No - Immunization History Td Vaccination: Yes TDAP Vaccination: Yes Immunization Up to Date: Yes - Psycho/Social/Smoking Cessation Hx Anxiety: No Suicidal Ideation: No Smoking Status: No Smoking History: Former smoker Years of Tobacco Use: 40 Have you smoked in the past 12 months: No Number of Cigarettes Smoked Daily: 40 If you are a former smoker, when did you quit?: 2010 Cigars Per Day: 0 Information on smoking cessation initiated: No 'Breaking Loose' booklet given: 02/06/12 Hx Alcohol Use: No Drug/Substance Use Hx: No Substance Use Type: None Hx Substance Use Treatment: No <Caden Steele - Last Filed: 02/20/17 20:16> - Past Medical History Allergies/Adverse Reactions: Allergies Allergy/AdvReac Type Severity Reaction Status Date / Time No Known Drug Allergies Allergy Verified 02/16/17 23:31 shellfish derived Allergy Verified 02/16/17 23:31 Home Medications: Ambulatory Orders Allopurinol [Zyloprim -] 100 mg PO DAILY 09/10/15 Atorvastatin Ca [Lipitor] 40 mg PO HS 09/10/15 Carvedilol 6.25 mg PO BID 09/10/15 Docusate Sodium [Colace -] 100 mg PO BID 09/10/15 Insulin NPL/Insulin Lispro [Humalog Mix 75-25 Vial] 0 unit SQ PRN 09/10/15 Milrinone Lactate/D5w [Milrinone 0.2 mg/ml in D5w] 0 mg IV DAILY 09/10/15 Ranitidine [Zantac -] 75 mg PO DAILY 09/10/15 Albuterol 0.083% Nebulizer Jewell [Ventolin 0.083% Nebulizer Soln -] 1 amp NEB Q6H PRN #120 amp 09/14/15 Ferrous Sulfate [Feosol] 325 mg PO Q48H ud 04/23/16 Warfarin Na [Coumadin -] 4 mg PO DAILY@1800 09/06/16 Bupropion HCl [Wellbutrin -] 75 mg DAILY 09/08/16 Ascorbic Acid [Vitamin C -] 1,000 mg PO DAILY 11/24/16 Cholecalciferol (Vitamin D3) [Vitamin D -] 1,000 unit PO DAILY 11/24/16 Clopidogrel Bisulfate [Plavix -] 75 mg PO DAILY 11/24/16 Multivitamin [Poly-Vitamin] 1 each PO DAILY 11/24/16 Budesonide/Formeterol Fumarate [SYMBICORT 160/4.5mcg -] 1 inh PO BID 02/17/17 Potassium Chloride [K-Dur -] 40 meq PO TID 02/17/17 Tiotropium [employer] [Spiriva] 1 inh IH DAILY 02/17/17 Torsemide [Demadex -] 40 mg PO BID 02/17/17 Review of Systems - Review of Systems Able to Perform ROS?: Yes Comments:: 02/17/17 00:06 CONSTITUTIONAL: Absent: fever, chills, diaphoresis, generalized weakness, malaise, loss of appetite HEENT: Present: sneezing Absent: throat pain, throat swelling, difficulty swallowing, mouth swelling, ear pain, eye pain, visual Changes CARDIOVASCULAR: Present: lightheadedness Absent: chest pain, syncope, palpitations, irregular heart rate, peripheral edema RESPIRATORY: Present: cough, shortness of breath Absent: orthopnea, wheezing, stridor, hemoptysis GASTROINTESTINAL: Absent: abdominal pain, abdominal distension, nausea, vomiting, diarrhea, constipation, melena, hematochezia GENITOURINARY: Present: bleeding from rectum Absent: dysuria, frequency, urgency, hesitancy, hematuria, flank pain, genital pain MUSCULOSKELETAL: Absent: myalgia, arthralgia, joint swelling SKIN: Absent: rash, itching, pallor HEMATOLOGIC/IMMUNOLOGIC: Absent: easy bleeding, easy bruising, lymphadenopathy, frequent infections ENDOCRINE: Absent: unexplained weight gain, unexplained weight loss, heat intolerance, cold intolerance NEUROLOGIC: Absent: headache, focal weakness or paresthesias, dizziness, unsteady gait, seizure, mental status changes, bladder or bowel incontinence PSYCHIATRIC: Absent: anxiety, depression, suicidal or homicidal ideation, hallucinations. <Cristine Porter - Last Filed: 02/17/17 02:29> *Physical Exam - Vital Signs Last Vital Signs Temp Pulse Resp BP Pulse Ox 98.0 F 75 22 111/70 92 L 02/16/17 23:32 02/16/17 23:32 02/16/17 23:32 02/16/17 23:32 02/16/17 23:32 - Physical Exam Comments: 02/17/17 00:08 Well developed, well nourished. Awake and alert. No acute distress. HEENT: Normocephalic, atraumatic. PERRLA, EOMI. No conjunctival pallor. Sclera are non- icteric. Moist mucous membranes. Oropharynx is clear. NECK: Supple. Full ROM. No JVD. Carotid pulses 2+ and symmetric, without bruits. No thyromegaly. No lymphadenopathy. CARDIOVASCULAR: Regular rate and rhythm. No murmurs, rubs, or gallops. Distal pulses are 2+ and symmetric. PULMONARY: +tachypneic, crackles ABDOMINAL: Soft. Non-tender. Non-distended. No rebound or guarding. No organomegaly. Normoactive bowel sounds. MUSCULOSKELETAL Normal range of motion at all joints. No bony deformities or tenderness. No CVA tenderness. EXTREMITIES: No cyanosis. No clubbing. No calf tenderness. (+) +1 bilateral pitting edema in the lower extremities. SKIN: Warm and dry. Normal capillary refill. No rashes. No jaundice. NEUROLOGICAL: Alert, awake, appropriate. PSYCHIATRIC: Cooperative. Good eye contact. Appropriate mood and affect. Rectal Exam: +Internal hemorrhoids appreciated, scattered bright red blood through the stool itself. <Cristine Porter - Last Filed: 02/17/17 02:29> - Vital Signs Last Vital Signs Temp Pulse Resp BP Pulse Ox 98.0 F 75 22 111/70 92 L 02/16/17 23:32 02/16/17 23:32 02/16/17 23:32 02/16/17 23:32 02/16/17 23:32 <Caden Steele - Last Filed: 02/20/17 20:16> ED Treatment Course - LABORATORY CBC & Chemistry Diagram: 02/17/17 00:15 02/17/17 00:15 <Cristine Porter - Last Filed: 02/17/17 02:29> - LABORATORY CBC & Chemistry Diagram: 02/20/17 05:57 02/20/17 05:57 <Caden Steele - Last Filed: 02/20/17 20:16> Medical Decision Making - Medical Decision Making 02/20/17 20:16 Dr. Steele: The scribe's documentation has been prepared under my direction and personally reviewed by me in its entirery. I confirm that the note above accurately reflects all work, treatment, procedures, and medical decision making performed by me. <Caden Steele - Last Filed: 02/20/17 20:16> *DC/Admit/Observation/Transfer - Attestations Scribe Attestion: 02/17/17 00:10 Documentation prepared by Cristine Porter, acting as medical collections for Caden Steele MD. <Cristine Porter - Last Filed: 02/17/17 02:29> - Discharge Dispostion Admit: Yes <Caden Steele - Last Filed: 02/20/17 20:16> Diagnosis at time of Disposition: CKD (chronic kidney disease) CHF (congestive heart failure) Qualifiers: Congestive heart failure type: systolic Congestive heart failure chronicity: acute on chronic Qualified Code(s): I50.23 - Acute on chronic systolic ( congestive) heart failure
[2017-02-16] MEDS ORDERED: FUROSEMIDE 40 MG/4 ML INJECTABLE VIAL IVPUSH ONE (23:58)
[2017-02-17] MEDS ORDERED: FUROSEMIDE 40 MG/4 ML INJECTABLE VIAL ONE (00:01)
[2017-02-17 00:30] LABS: BASOPHIL 1.4 % (0-2.0); EOSINOPHIL 1.9 % (0-4.5); MCH 25.8 pg (25.7-33.7); MCHC 31.5 g/dl (32.0-35.9); MEAN CELL VOLUME 81.9 fl (80-96); MEAN PLT VOLUME 8.8 fl (7.5-11.1); NEUTROPHILS 68.8 % (42.8-82.8); PLATELET COUNT 223 K/MM3 (134-434); RDW 19.1 % (11.9-15.9); WHITE BLOOD COUNT 8.3 K/mm3 (4.0-10.0)
[2017-02-17 00:41] LABS: INR 3.19 (0.82-1.09); PROTHROMBIN TIME (PATIENT) 35.9 SEC (9.98-11.88)
[2017-02-17 01:03] LABS: ALBUMIN 3.5 g/dl (3.4-5.0); ANION GAP 7 (8-16); BILIRUBIN,TOTAL 0.7 mg/dL (0.2-1.0); CALCIUM 8.9 mg/dL (8.5-10.1); CO2 34 mmol/L (21-32); CREATININE 2.5 mg/dL (0.7-1.3); GLUCOSE,RANDOM 120 mg/dL (74-106); SGOT/AST 20 U/L (15-37); SGPT/ALT 18 U/L (12-78); TOT PROT 7.6 g/dl (6.4-8.2)
[2017-02-17 01:04] LABS: ALK PHOS 156 U/L (45-117)
[2017-02-17 01:06] LABS: TROPONIN I 0.04 ng/ml (0.00-0.05)
[2017-02-17 05:44] LABS: URINE APPEARANCE CLEAR; URINE BILIRUBIN NEGATIVE (NEGATIVE); URINE BLOOD NEGATIVE (NEGATIVE); URINE COLOR LTYELLOW; URINE GLUCOSE (UA) NEGATIVE (NEGATIVE); URINE KETONE NEGATIVE (NEGATIVE); URINE NITRITE NEGATIVE (NEGATIVE); URINE PROTEIN NEGATIVE (NEGATIVE); URINE UROBILINOGEN NEGATIVE E.U./dl (0.2-1.0)
[2017-02-17 05:45] LABS: URINE LEUK ESTERASE TRACE (NEGATIVE)
[2017-02-17 05:46] LABS: URINE HYALINE CAST 1 /lpf; URINE MUCUS RARE; URINE RBC 1 /hpf (0-3); URINE WBC 3 /hpf (3-5)
--- NOTE | 2017-02-17 10:23 | EKG ---
Test Reason : Blood Pressure : / mmHG Vent. Rate : 075 BPM Atrial Rate : 075 BPM P-R Int : 000 ms QRS Dur : 202 ms QT Int : 494 ms P-R-T Axes : 000 228 056 degrees QTc Int : 551 ms Atrial-sensed ventricular-paced rhythm with prolonged AV conduction Biventricular pacemaker detected ABNORMAL ECG WHEN COMPARED WITH ECG OF 22-JAN-2017 03:26, PREMATURE VENTRICULAR COMPLEXES ARE NO LONGER PRESENT Confirmed by ISAIAS FRANCOIS MD ([id number]) on 02/17/2017 10:22:35 AM Referred By: Confirmed By:ISAIAS FRANCOIS MD
--- NOTE | 2017-02-17 10:54 | CON.CARD ---
Cardiology Consult (text) - Consultation Consultation Note: cc: sob hpi: 76 year old man with PMH of IDDM, COPD (O2 dependant) HTN, HLD, Afib (on coumadin), CAD s/p CABG 2012, end stage CHF with ICD placement (on milrinone pump), PVD, BPH here with sob. Had been feeling well until past few days when he developed jose worse than baseline. Also with productive cough. No cp, palps , dizzy, loc, pnd, orthopnea. LE edema mild. Sees dr boyd for cardio. Past Medical History/Surg hx: per hpi, additionally hernia repair Soc hx: Former smoker, no etoh or illicits fam hx: brother with pvd ros: per hpi; no nasal congestion, no rash, vision changes, wt loss, gib, hematuria, muscle pains meds: Home Medications Medication Instructions Recorded Allopurinol [Zyloprim -] 100 mg PO DAILY 09/10/15 Atorvastatin Ca [Lipitor] 40 mg PO HS 09/10/15 Carvedilol 6.25 mg PO BID 09/10/15 Docusate Sodium [Colace -] 100 mg PO BID 09/10/15 Insulin NPL/Insulin Lispro 0 unit SQ PRN 09/10/15 [Humalog Mix 75-25 Vial] Milrinone Lactate/D5w [Milrinone 0 mg IV DAILY 09/10/15 0.2 mg/ml in D5w] Ranitidine [Zantac -] 75 mg PO DAILY 09/10/15 Albuterol 0.083% Nebulizer Jewell 1 amp NEB Q6H PRN #120 amp 09/14/15 [Ventolin 0.083% Nebulizer Soln -] Ferrous Sulfate [Feosol] 325 mg PO Q48H ud 04/23/16 Warfarin Na [Coumadin -] 4 mg PO DAILY@1800 09/06/16 Bupropion HCl [Wellbutrin -] 75 mg DAILY 09/08/16 Ascorbic Acid [Vitamin C -] 1,000 mg PO DAILY 11/24/16 Cholecalciferol (Vitamin D3) 1,000 unit PO DAILY 11/24/16 [Vitamin D -] Clopidogrel Bisulfate [Plavix -] 75 mg PO DAILY 11/24/16 Multivitamin [Poly-Vitamin] 1 each PO DAILY 11/24/16 Budesonide/Formeterol Fumarate 1 inh PO BID 02/17/17 [SYMBICORT 160/4.5mcg -] Potassium Chloride [K-Dur -] 40 meq PO TID 02/17/17 Tiotropium [place] [Spiriva] 1 inh IH DAILY 02/17/17 Torsemide [Demadex -] 40 mg PO BID 02/17/17 pe: Vital Signs Period Temp Pulse Resp BP Sys/Orantes Pulse Ox Last 24 Hr 98.0 F 75-88 18-22 94-130/58-83 92-97 NAD, calm JVD flat, neck supple RRR nl s1, s2 no m/r/g. cta bl, nl effort + bs soft nd, nt trace le edema no c/c aaox3 pos pt dp, no carotid bruits no jaundice diaphoresis Laboratory Last Values WBC 8.3 K/mm3 (4.0-10.0) 02/17/17 00:15 RBC 4.60 M/mm3 (4.00-5.60) 02/17/17 00:15 Hgb 11.9 GM/dL (11.7-16.9) 02/17/17 00:15 Hct 37.7 % (35.4-49) 02/17/17 00:15 MCV 81.9 fl (80-96) 02/17/17 00:15 MCHC 31.5 g/dl (32.0-35.9) L 02/17/17 00:15 RDW 19.1 % (11.9-15.9) H 02/17/17 00:15 Plt Count 223 K/MM3 (134-434) 02/17/17 00:15 MPV 8.8 fl (7.5-11.1) 02/17/17 00:15 Neutrophils % 68.8 % (42.8-82.8) 02/17/17 00:15 Lymphocytes % 17.4 % (8-40) 02/17/17 00:15 Monocytes % 10.5 % (3.8-10.2) H 02/17/17 00:15 Eosinophils % 1.9 % (0-4.5) 02/17/17 00:15 Basophils % 1.4 % (0-2.0) 02/17/17 00:15 INR 3.19 (0.82-1.09) H D 02/17/17 00:15 Sodium 144 mmol/L (136-145) 02/17/17 00:15 Potassium 4.6 mmol/L (3.5-5.1) D 02/17/17 00:15 Chloride 103 mmol/L (98-107) D 02/17/17 00:15 Carbon Dioxide 34 mmol/L (21-32) H 02/17/17 00:15 Anion Gap 7 (8-16) L 02/17/17 00:15 BUN 52 mg/dL (7-18) H 02/17/17 00:15 Creatinine 2.5 mg/dL (0.7-1.3) H D 02/17/17 00:15 Creat Clearance w eGFR 25.10 (>60) 02/17/17 00:15 Random Glucose 120 mg/dL (74-106) H 02/17/17 00:15 Calcium 8.9 mg/dL (8.5-10.1) 02/17/17 00:15 Total Bilirubin 0.7 mg/dL (0.2-1.0) 02/17/17 00:15 AST 20 U/L (15-37) 02/17/17 00:15 ALT 18 U/L (12-78) D 02/17/17 00:15 Alkaline Phosphatase 156 U/L (45-117) H 02/17/17 00:15 Creatine Kinase 59 IU/L (39-308) 02/17/17 00:15 Troponin I 0.04 ng/ml (0.00-0.05) 02/17/17 00:15 B-Natriuretic Peptide 1720.46 pg/ml (5-450) H 02/17/17 02:10 Total Protein 7.6 g/dl (6.4-8.2) D 02/17/17 00:15 Albumin 3.5 g/dl (3.4-5.0) D 02/17/17 00:15 Urine Color Ltyellow 02/17/17 05:15 Urine Appearance Clear 02/17/17 05:15 Urine pH 6.0 (5.0-8.0) 02/17/17 05:15 Urine Protein Negative (NEGATIVE) 02/17/17 05:15 Urine Glucose (UA) Negative (NEGATIVE) 02/17/17 05:15 Urine Ketones Negative (NEGATIVE) 02/17/17 05:15 Urine Blood Negative (NEGATIVE) 02/17/17 05:15 Urine Nitrite Negative (NEGATIVE) 02/17/17 05:15 Urine Bilirubin Negative (NEGATIVE) 02/17/17 05:15 Urine Urobilinogen Negative E.U./dl (0.2-1.0) 02/17/17 05:15 Ur Leukocyte Esterase Trace (NEGATIVE) H 02/17/17 05:15 Urine RBC 1 /hpf (0-3) 02/17/17 05:15 Urine WBC 3 /hpf (3-5) 02/17/17 05:15 Hyaline Casts 1 /lpf 02/17/17 05:15 Urine Mucus Rare 02/17/17 05:15 ecg 02/16/17: vp scientific echo 05/2016: sev lve, global hk, sev dec lvef, mild rve, nl rv fcn, estefania, mild- mod mr, mv ring, tv ring, mild tr, mild pr, mild phtn, ivc mild dil cxr: chf tele: vp scientific a/p: 76 year old man with PMH of IDDM, COPD (O2 dependant) HTN, HLD, Afib (on coumadin), CAD s/p CABG 2012, end stage CHF with ICD placement (on milrinone pump), PVD, BPH here with sob. sob, acute systolic CHF, end stage systolic heart failure s/p ICD, on home milrinone infusion: - here with sob/jose - cxr seems similar to priors with chronic congestive changes - bnp lower than prior admits - unclear if sxs from chf or some URI/copd (productive cough). Will give trial of iv lasix 80 x1 today and monitor sxs, cr trend tomorrow to see if improving. - cont milrinone at patient's home maintenance dose (on chronic infusion destination therapy)--0.35 mcg/kg/min. - cont home coreg - recent office icd check with stable function afib - currently rate controlled on coreg - cont coumadin per INR PVD - con't AC, statin. CAD s/p CABG - No anginal symptoms, no signs acs. Con't home ac, atorvastatin, coreg HTN: controlled on coreg HLD: con't statin. chu/ CKD: - possibly cardiorenal, will give trial of iv lasix today and monitor cr trend tomorrow
[2017-02-17] MEDS ORDERED: ONDANSETRON 4 MG/2 ML VIAL IVPB PRN (11:09)
--- NOTE | 2017-02-17 11:14 | HP ---
Admitting History and Physical - Primary Care Physician PCP: Khang Lopez - Admission Chief Complaint: I was short of breath History of Present Illness: Mr Perez is a 76 year old male who comes in with worsening shortness of breath. He was recently discharged from the hospital for end stage CHF with exacerbation, at that time his breathing was a baseline and he could do his normal amount of exertion (which is about 2 blocks) before getting short of breath. Over the past 3 days he noticed that he was having worsening shortness of breath on exertion. He says he can now walk less than a block before becoming short of breath. He also was having worsening shortness of breath with lying flat. He had a cough with productive white and frothy sputum. Because of this he came in. He denies fevers, chills, lightheadedness, dizziness, chest pain, nausea, vomiting, diarrhea, constipation, pain or difficulty urinating, or worsening leg swelling. He says his breathing is a little better today. History Source: Patient Limitations to Obtaining History: No Limitations - Past Medical History Cardiovascular: Yes: AFIB, CAD, CHF, HTN, Hyperlipdemia, [place], Pulmonary Hypertension, Other (AICD placed) Pulmonary: Yes: COPD, O2 Dependent Renal/: Yes: Renal Inusuff, BPH Endocrine: Yes: Diabetes Mellitus - Past Surgical History Past Surgical History: Yes: AICD, CABG, Hernia Repair - Smoking History Smoking history: Former smoker Have you smoked in the past 12 months: No Aproximately how many cigarettes per day: 40 If you are a former smoker, when did you quit?: 2010 - Alcohol/Substance Use Hx Alcohol Use: No History of Substance Use: reports: None - Social History Usual Living Arrangement: Yes: With Spouse ADL: Independent History of Recent Travel: No Home Medications - Allergies Allergies/Adverse Reactions: Allergies Allergy/AdvReac Type Severity Reaction Status Date / Time No Known Drug Allergies Allergy Verified 02/16/17 23:31 shellfish derived Allergy Verified 02/16/17 23:31 - Home Medications Home Medications: Ambulatory Orders Allopurinol [Zyloprim -] 100 mg PO DAILY 09/10/15 Atorvastatin Ca [Lipitor] 40 mg PO HS 09/10/15 Carvedilol 6.25 mg PO BID 09/10/15 Docusate Sodium [Colace -] 100 mg PO BID 09/10/15 Insulin NPL/Insulin Lispro [Humalog Mix 75-25 Vial] 0 unit SQ PRN 09/10/15 Milrinone Lactate/D5w [Milrinone 0.2 mg/ml in D5w] 0 mg IV DAILY 09/10/15 Ranitidine [Zantac -] 75 mg PO DAILY 09/10/15 Albuterol 0.083% Nebulizer [place] [Ventolin 0.083% Nebulizer Soln -] 1 amp NEB Q6H PRN #120 amp 09/14/15 Ferrous Sulfate [Feosol] 325 mg PO Q48H ud 04/23/16 Warfarin Na [Coumadin -] 4 mg PO DAILY@1800 09/06/16 Bupropion HCl [Wellbutrin -] 75 mg DAILY 09/08/16 Ascorbic Acid [Vitamin C -] 1,000 mg PO DAILY 11/24/16 Cholecalciferol (Vitamin D3) [Vitamin D -] 1,000 unit PO DAILY 11/24/16 Clopidogrel Bisulfate [Plavix -] 75 mg PO DAILY 11/24/16 Multivitamin [Poly-Vitamin] 1 each PO DAILY 11/24/16 Budesonide/Formeterol Fumarate [SYMBICORT 160/4.5mcg -] 1 inh PO BID 02/17/17 Potassium Chloride [K-Dur -] 40 meq PO TID 02/17/17 Tiotropium [place] [Spiriva] 1 inh IH DAILY 02/17/17 Torsemide [Demadex -] 40 mg PO BID 02/17/17 Family Disease History - Family Disease History Family Disease History: Diabetes: Father, Heart Disease: Father Review of Systems Findings/Remarks: full review of systems obtained, as per HPI and otherwise negative Physical Examination Vital Signs: Vital Signs Temperature 98.0 F 02/16/17 23:32 Pulse Rate 78 02/17/17 08:35 Respiratory Rate 18 02/17/17 06:32 Blood Pressure 130/80 02/17/17 08:35 O2 Sat by Pulse Oximetry (%) 97 02/17/17 08:35 Constitutional: Yes: Well Nourished, No Distress, Calm Eyes: Yes: Conjunctiva Clear, EOM Intact, PERRL HENT: Yes: Atraumatic, Normocephalic Cardiovascular: Yes: Regular Rate and Rhythm, Murmur. No: Gallop, Rub Respiratory: Yes: Regular, On Nasal O2, Rhonchi, Wheezes. No: Rales Gastrointestinal: Yes: Normal Bowel Sounds, Soft, Distention. No: Tenderness Extremities: Yes: WNL Edema: Yes Edema: LLE: 1+, RLE: 1+ Labs: Laboratory Results - last 24 hr 02/17/17 02/17/17 02/17/17 00:15 00:15 00:15 WBC 8.3 RBC 4.60 Hgb 11.9 Hct 37.7 MCV 81.9 MCHC 31.5 L RDW 19.1 H Plt Count 223 MPV 8.8 Neutrophils % 68.8 Lymphocytes % 17.4 Monocytes % 10.5 H Eosinophils % 1.9 Basophils % 1.4 INR 3.19 H D Sodium 144 Potassium 4.6 D Chloride 103 D Carbon Dioxide 34 H Anion Gap 7 L BUN 52 H Creatinine 2.5 H D Creat Clearance w eGFR 25.10 POC Glucometer Random Glucose 120 H Calcium 8.9 Total Bilirubin 0.7 AST 20 ALT 18 D Alkaline Phosphatase 156 H Creatine Kinase Troponin I B-Natriuretic Peptide Total Protein 7.6 D Albumin 3.5 D Urine Color Urine Appearance Urine pH Ur Specific [place] Urine Protein Urine Glucose (UA) Urine Ketones Urine Blood Urine Nitrite Urine Bilirubin Urine Urobilinogen Ur Leukocyte Esterase Urine RBC Urine WBC Hyaline Casts Urine Mucus 02/17/17 02/17/17 02/17/17 00:15 02:10 05:15 WBC RBC Hgb Hct MCV MCHC RDW Plt Count MPV Neutrophils % Lymphocytes % Monocytes % Eosinophils % Basophils % INR Sodium Potassium Chloride Carbon Dioxide Anion Gap BUN Creatinine Creat Clearance w eGFR POC Glucometer Random Glucose Calcium Total Bilirubin AST ALT Alkaline Phosphatase Creatine Kinase 59 Troponin I 0.04 B-Natriuretic Peptide 1720.46 H Total Protein Albumin Urine Color Ltyellow Urine Appearance Clear Urine pH 6.0 Ur Specific [place] 1.010 Urine Protein Negative Urine Glucose (UA) Negative Urine Ketones Negative Urine Blood Negative Urine Nitrite Negative Urine Bilirubin Negative Urine Urobilinogen Negative Ur Leukocyte Esterase Trace H Urine RBC 1 Urine WBC 3 Hyaline Casts 1 Urine Mucus Rare 02/17/17 15:33 WBC RBC Hgb Hct MCV MCHC RDW Plt Count MPV Neutrophils % Lymphocytes % Monocytes % Eosinophils % Basophils % INR Sodium Potassium Chloride Carbon Dioxide Anion Gap BUN Creatinine Creat Clearance w eGFR POC Glucometer 234 Random Glucose Calcium Total Bilirubin AST ALT Alkaline Phosphatase Creatine Kinase Troponin I B-Natriuretic Peptide Total Protein Albumin Urine Color Urine Appearance Urine pH Ur Specific [place] Urine Protein Urine Glucose (UA) Urine Ketones Urine Blood Urine Nitrite Urine Bilirubin Urine Urobilinogen Ur Leukocyte Esterase Urine RBC Urine WBC Hyaline Casts Urine Mucus Imaging - Results Chest X-ray: Report Reviewed, Image Reviewed Problem List - Problems (1) CHF (congestive heart failure) Assessment/Plan: -patient with end stage CHF on milrinone presents with acute exacerbation -admit to telemetry -continue milrinone -cardiology consulted, giving IV lasix -monitor for improvement -holding torsemide while give IV lasix -otherwise continue home regimen Code(s): I50.9 - HEART FAILURE, UNSPECIFIED Qualifiers: Congestive heart failure type: systolic Congestive heart failure chronicity: acute on chronic Qualified Code(s): I50.23 - Acute on chronic systolic (congestive) heart failure (2) Acute and chronic respiratory failure ([id number]) Assessment/Plan: -secondary to CHF exacerbation -continue diuresis -on supplemental oxygen Code(s): J96.20 - ACUTE AND CHR RESP FAILURE, UNSP W HYPOXIA OR HYPERCAPNIA Qualifiers: Respiratory failure complication: hypoxia Qualified Code(s): J96.21 - Acute and chronic respiratory failure with hypoxia (3) Acute on chronic renal insufficiency Assessment/Plan: -cardiorenal -monitor since diuresing Code(s): N28.9 - DISORDER OF KIDNEY AND URETER, UNSPECIFIED N18.9 - CHRONIC KIDNEY DISEASE, UNSPECIFIED (4) Atrial fibrillation Assessment/Plan: -rate controlled -hold coumadin today secondary to supratherapeutic INR -recheck INR in am Code(s): I48.91 - UNSPECIFIED ATRIAL FIBRILLATION Qualifiers: Atrial fibrillation type: chronic Qualified Code(s): I48.2 - Chronic atrial fibrillation (5) CAD (coronary artery disease) Assessment/Plan: -quiescent -cardiology following -continue home regimen Code(s): I25.10 - ATHSCL HEART DISEASE OF [place] CORONARY ARTERY W/O ANG PCTRS (6) COPD (chronic obstructive pulmonary disease) Assessment/Plan: -consult pulmonary -suspect more CHF than COPD -continue home regimen -continue oxygen supplementation Code(s): J44.9 - CHRONIC OBSTRUCTIVE PULMONARY DISEASE, UNSPECIFIED (7) Diabetes Assessment/Plan: -diabetic diet -continue SSI Code(s): E11.9 - TYPE 2 DIABETES MELLITUS WITHOUT COMPLICATIONS Qualifiers: Diabetes mellitus type: type 2 Diabetes mellitus complication status: with kidney complications Diabetes mellitus complication detail: with chronic kidney disease Chronic kidney disease stage: stage 4 (severe)
[2017-02-17] MEDS ORDERED: TIOTROPIUM BROMIDE 18 MCG/INH (DEVICE W/ 5 CAPSULES) IH SCH (11:15)
[2017-02-17 11:54] VITALS: BMI 28.0
[2017-02-17] MEDS ORDERED: FUROSEMIDE 40 MG/4 ML INJECTABLE VIAL IVPUSH ONE (12:00)
[2017-02-17] MEDS: buPROPion HCL 75 MG TABLET PO SCH (13:01)
[2017-02-17] MEDS: RANITIDINE HCL 150 MG TABLET (FP) PO SCH (13:01)
[2017-02-17] MEDS: FERROUS SO4 325 MG TABLET (FP) PO SCH (13:01)
[2017-02-17] MEDS: CHOLECALCIFEROL (VITAMIN D3) 1,000 UNIT TABLET (FP) PO SCH (13:01)
[2017-02-17] MEDS: CLOPIDOGREL BISULFATE 75 MG TABLET (FP) PO SCH (13:01)
[2017-02-17] MEDS ORDERED: POTASSIUM CHLORIDE TABS 20 MEQ TABLET.ER (FP) PO SCH (14:00)
[2017-02-17] MEDS: MILRINONE 20MG/100ML IVPB - 100 ML IVPB SCH (14:00)
--- NOTE | 2017-02-17 14:31 | PN ---
Progress Note (short form) - Note Progress Note: PULMONARY CONSULTATION DICTATED 02/17/17 IMP ACUTE ON CHRONIC RESPIRATORY FAILURE DECOMPENASTED CHF SEVERE LV DYSFUNCTION S/P ICD ,ON MILRINONE DRIP ASHD S/P CABG ADVANCED COPD ON O2 AFIB ACUTE ON CKD PVD BPH PLAN IV LASIX O2 MILRINONE INHALED BRONCHODILATORS MONITOR LYTES ,RENAL FUNCTION DAILY WTS F/U CHEST X-RAYS AC MONITOR INR DR MONTGOMERY Problem List - Problems (1) CHF (congestive heart failure) Code(s): I50.9 - HEART FAILURE, UNSPECIFIED Qualifiers: Congestive heart failure type: systolic Congestive heart failure chronicity: acute on chronic Qualified Code(s): I50.23 - Acute on chronic systolic (congestive) heart failure (2) CKD (chronic kidney disease) Code(s): N18.9 - CHRONIC KIDNEY DISEASE, UNSPECIFIED Qualifiers: (3) AICD (automatic cardioverter/defibrillator) present Code(s): Z95.810 - PRESENCE OF AUTOMATIC (IMPLANTABLE) CARDIAC DEFIBRILLATOR (4) Acute and chronic respiratory failure ([id number]) Code(s): J96.20 - ACUTE AND CHR RESP FAILURE, UNSP W HYPOXIA OR HYPERCAPNIA Qualifiers: Respiratory failure complication: hypoxia Qualified Code(s): J96.21 - Acute and chronic respiratory failure with hypoxia (5) Acute on chronic renal insufficiency Code(s): N28.9 - DISORDER OF KIDNEY AND URETER, UNSPECIFIED N18.9 - CHRONIC KIDNEY DISEASE, UNSPECIFIED (6) Atrial fibrillation Code(s): I48.91 - UNSPECIFIED ATRIAL FIBRILLATION Qualifiers: Atrial fibrillation type: chronic Qualified Code(s): I48.2 - Chronic atrial fibrillation (7) CAD (coronary artery disease) Code(s): I25.10 - ATHSCL HEART DISEASE OF [place] CORONARY ARTERY W/O ANG PCTRS (8) COPD (chronic obstructive pulmonary disease) Code(s): J44.9 - CHRONIC OBSTRUCTIVE PULMONARY DISEASE, UNSPECIFIED (9) Cardiomyopathy Code(s): I42.9 - CARDIOMYOPATHY, UNSPECIFIED (10) Diabetes Code(s): E11.9 - TYPE 2 DIABETES MELLITUS WITHOUT COMPLICATIONS Qualifiers: Diabetes mellitus type: type 2 Diabetes mellitus complication status: with kidney complications Diabetes mellitus complication detail: with chronic kidney disease Chronic kidney disease stage: stage 4 (severe) (11) Dyspnea on exertion Code(s): R06.09 - OTHER FORMS OF DYSPNEA (12) Presence of permanent cardiac pacemaker Code(s): Z95.0 - PRESENCE OF CARDIAC PACEMAKER
[2017-02-17] MEDS: CARVEDILOL 6.25 MG TABLET (FP) PO SCH ×2 (17:17→21:27)
[2017-02-17] MEDS: INSULIN SLIDING SCALE (NOVOLOG) 1 VIAL SQ SCH ×2 (17:18→21:27)
--- NOTE | 2017-02-17 18:17 | CONS ---
DATE OF CONSULTATION: 02/17/2017 PULMONARY CONSULTATION REFERRING PHYSICIAN: Dr. Pritchard. HISTORY OF PRESENT ILLNESS: The patient is a 76-year-old male known to me from previous hospitalization as well as office followup with a past medical history of COPD on home O2, insulin-dependent diabetes mellitus, congestive heart failure on Milrinone pump, status post ICD, atrial fibrillation, arteriosclerotic heart disease, status post CABG 2012, peripheral vascular disease, BPH, admitted to [facility] with complaint of acute onset of increasing shortness of breath. The patient apparently has been well until a couple of days prior to admission. He started developing mild increasing shortness of breath. Yesterday he also complained of productive cough of clear sputum. He denied any chest pains, palpitation, nausea, vomiting, or diaphoresis. He has noted increasing lower extremity edema. Last night he felt significant increasing shortness of breath at which time he presented to the emergency room. On admission he as felt to have congestive heart failure and was admitted to the telemetry unit and started on IV Lasix, increased Lasix dose. The patient has a history of tobacco use and quit a few years ago. There is no history of occupational exposure to chemicals or fumes. He denies any fever or chills, denies any hemoptysis. He denies any change in color of sputum. He denies any bronchospasm. PAST MEDICAL HISTORY: Again includes severe LV dysfunction with global hypokinesia, decreased in left ventricular ejection fraction, pulmonary hypertension, COPD on home O2, insulin-dependent diabetes mellitus, hypertension, atrial fibrillation, hyperlipidemia, peripheral vascular disease, and BPH. REVIEW OF SYSTEMS: No orthopnea, positive dyspnea, positive cough, white sputum , no hemoptysis, no chest pain, no palpitation, no nausea or vomiting. Positive lower extremity edema. CURRENT MEDICATIONS: Include Zofran, Symbicort, Tylenol, Coumadin, Wellbutrin, Zyloprim, Tudorza, Albuterol nebulizer, carvedilol, Milrinone drip, Colace, Zantac, Lipitor, NovoLog, DSO, Tab-A-[place], Plavix, vitamin C and vitamin D3. PHYSICAL EXAMINATION: General: The patient is a well-developed, well-nourished male, awake, alert, mildly dyspneic, but in no acute distress. Vitals: He is currently afebrile. Blood pressure is 130/71, respiratory rate 20, O2 saturation 95% on 2 L. HEENT: Normocephalic and atraumatic. Neck: Supple. Heart: Irregular with normal S1, S2. Lungs: Bilateral rales, 2/3 up. Abdomen: Soft, bowel sounds positive. Extremities: No signs of edema. LABORATORY DATA: WBC 8.3, hemoglobin 11.9, hematocrit 37.7, platelet count 223, 000. INR is 3.19. BUN 52, creatinine 2.5, BNP is 1720. Chest x-ray with mild increasing pulmonary vascular congestion. IMPRESSION: 1. Dyspnea, chest congestion, most likely secondary to mild decompensated congestive heart failure. 2. Advanced chronic obstructive pulmonary disease on home O2. 3. Atrial fibrillation. 4. Pulmonary hypertension. 5. Acute on chronic kidney disease. 6. Arteriosclerotic heart disease status post coronary artery bypass graft. 7. Peripheral vascular disease. 8. Benign prostatic hypertrophy. 9. Insulin-dependent diabetes mellitus. PLAN: Continue IV Lasix, supplemental O2, inhaled bronchodilators, daily weights, obtain followup chest x-ray, antitussives, no improvement will start a short course of steroids, monitor blood sugars. Thank you will follow closely with you. BRADFORD MONTGOMERY M.D. [id number] MTDD
[2017-02-17] MEDS: BUDESONIDE/FORMETEROL FUMARATE 160/4.5 mcg INHALER IH SCH ×2 (18:18→21:28)
[2017-02-17] MEDS ORDERED: INSULIN (NOVOLOG) ASPART 100 UNITS/ML 10ML VIAL ONE (21:23)
[2017-02-17] MEDS: DOCUSATE SODIUM 100 MG CAPSULE (FP) PO SCH (21:27)
[2017-02-17] MEDS: ATORVASTATIN CA 40 MG TABLET (FP) PO SCH (21:27)
[2017-02-17] MEDS: PHENYLEPHRINE 0.25%/STARCH 1 EACH SUPP.RECT RC SCH (21:27)
[2017-02-17] MEDS: ACLIDINIUM BROMIDE 400 MCG/INH AERO.POWD IH SCH (21:28)
[2017-02-18] MEDS: ALBUTEROL SO4 0.083% IH SOL 2.5 MG/3 ML VIAL.NEB. NEB PRN ×2 (06:10→19:42)
[2017-02-18] MEDS: INSULIN SLIDING SCALE (NOVOLOG) 1 VIAL SQ SCH ×4 (06:14→21:10)
[2017-02-18 07:38] LABS: BASOPHIL 0.4 % (0-2.0); EOSINOPHIL 1.1 % (0-4.5); MCH 26.5 pg (25.7-33.7); MCHC 31.6 g/dl (32.0-35.9); MEAN CELL VOLUME 83.9 fl (80-96); MEAN PLT VOLUME 9.6 fl (7.5-11.1); NEUTROPHILS 78.8 % (42.8-82.8); PLATELET COUNT 197 K/MM3 (134-434); RDW 19.2 % (11.9-15.9); WHITE BLOOD COUNT 9.4 K/mm3 (4.0-10.0)
[2017-02-18 07:55] LABS: INR 2.42 (0.82-1.09); PROTHROMBIN TIME (PATIENT) 27.1 SEC (9.98-11.88)
[2017-02-18 08:05] LABS: ANION GAP 10 (8-16); CALCIUM 8.8 mg/dL (8.5-10.1); CO2 33 mmol/L (21-32); CREATININE 1.9 mg/dL (0.7-1.3); GLUCOSE,RANDOM 178 mg/dL (74-106); MAGNESIUM 2.6 mg/dL (1.8-2.4); PHOSPHOROUS 2.9 mg/dL (2.5-4.9)
[2017-02-18] MEDS: ASCORBIC ACID 500 MG TABLET (FP) PO SCH (10:03)
[2017-02-18] MEDS: CLOPIDOGREL BISULFATE 75 MG TABLET (FP) PO SCH (10:03)
[2017-02-18] MEDS: ALLOPURINOL 100 MG TABLET (FP) PO SCH (10:04)
[2017-02-18] MEDS: RANITIDINE HCL 150 MG TABLET (FP) PO SCH (10:04)
[2017-02-18] MEDS: buPROPion HCL 75 MG TABLET PO SCH (10:04)
[2017-02-18] MEDS: CHOLECALCIFEROL (VITAMIN D3) 1,000 UNIT TABLET (FP) PO SCH (10:04)
[2017-02-18] MEDS: DOCUSATE SODIUM 100 MG CAPSULE (FP) PO SCH ×2 (10:04→21:08)
[2017-02-18] MEDS: CARVEDILOL 6.25 MG TABLET (FP) PO SCH ×2 (10:04→21:08)
[2017-02-18] MEDS: MULTIVITAMINS (DAILY MVI) TABLET (FP) PO SCH (10:04)
[2017-02-18] MEDS: ACLIDINIUM BROMIDE 400 MCG/INH AERO.POWD IH SCH ×2 (10:05→21:08)
[2017-02-18] MEDS: BUDESONIDE/FORMETEROL FUMARATE 160/4.5 mcg INHALER IH SCH ×2 (10:05→21:08)
[2017-02-18] MEDS: MILRINONE 20MG/100ML IVPB - 100 ML IVPB SCH (11:12)
[2017-02-18] MEDS ORDERED: INSULIN (NOVOLOG) ASPART 100 UNITS/ML 10ML VIAL ONE (11:45)
[2017-02-18] MEDS: ACETAMINOPHEN 325 MG TABLET (FP) PO PRN (11:48)
--- NOTE | 2017-02-18 12:46 | PN ---
Physical Exam: SUBJECTIVE: Patient seen and examined today. No acute distress noted. OBJECTIVE: Vital Signs Period Temp Pulse Resp BP Sys/Orantes Pulse Ox Last 24 Hr 96.6 F-100.1 F 20-81 16-22 100-130/57-84 95-98 GENERAL: The patient is awake, alert, and fully oriented, in no acute distress. HEAD: Normal with no signs of trauma. NECK: Trachea midline, full range of motion, supple. LUNGS: Breath sounds equal, clear to auscultation bilaterally, no wheezes, no crackles, no accessory muscle use. HEART: irregular rate and rhythm on AC (held yesterday for elevated INR) ABDOMEN: Soft, nontender, nondistended, normoactive bowel sounds, no guarding, no rebound, no hepatosplenomegaly, no masses. EXTREMITIES: 2+ pulses, warm, well-perfused, no edema. SKIN: Warm, dry, normal turgor, no rashes or lesions noted Laboratory Results - last 24 hr 02/17/17 02/17/17 02/18/17 15:33 21:26 05:50 WBC RBC Hgb Hct MCV MCHC RDW Plt Count MPV Neutrophils % Lymphocytes % Monocytes % Eosinophils % Basophils % INR Sodium Potassium Chloride Carbon Dioxide Anion Gap BUN Creatinine POC Glucometer 234 232 181 Random Glucose Calcium Phosphorus Magnesium 02/18/17 02/18/17 02/18/17 07:19 07:19 07:19 WBC 9.4 RBC 4.33 Hgb 11.5 L Hct 36.3 MCV 83.9 MCHC 31.6 L RDW 19.2 H Plt Count 197 MPV 9.6 Neutrophils % 78.8 Lymphocytes % 9.4 D Monocytes % 10.3 H Eosinophils % 1.1 Basophils % 0.4 INR 2.42 H Sodium 145 Potassium 3.6 D Chloride 102 Carbon Dioxide 33 H Anion Gap 10 BUN 48 H Creatinine 1.9 H D POC Glucometer Random Glucose 178 H D Calcium 8.8 Phosphorus 2.9 Magnesium 2.6 H 02/18/17 11:27 WBC RBC Hgb Hct MCV MCHC RDW Plt Count MPV Neutrophils % Lymphocytes % Monocytes % Eosinophils % Basophils % INR Sodium Potassium Chloride Carbon Dioxide Anion Gap BUN Creatinine POC Glucometer 193 Random Glucose Calcium Phosphorus Magnesium Active Medications Generic Name Dose Route Start Last Admin Trade Name Freq PRN Reason Stop Dose Admin Acetaminophen 650 mg 02/17/17 11:09 02/18/17 11:48 Tylenol - PO 650 mg Q4H PRN Administration FEVER OR PAIN Aclidinium [place] 1 puff 02/17/17 22:00 02/18/17 10:05 Tudorza - IH 1 puff BID [facility] Administration Albuterol Sulfate 1 amp 02/17/17 11:07 02/18/17 06:10 Ventolin 0.083% Nebulizer Soln - NEB 1 amp Q6H PRN Administration SHORT OF BREATH/WHEEZING Allopurinol 100 mg 02/18/17 10:00 02/18/17 10:04 Zyloprim - PO 100 mg DAILY [facility] Administration Ascorbic Acid 1,000 mg 02/18/17 10:00 02/18/17 10:03 Vitamin C - PO 1,000 mg DAILY [facility] Administration Atorvastatin Calcium 40 mg 02/17/17 22:00 02/17/17 21:27 Lipitor - PO 40 mg HS [facility] Administration Budesonide/Formoterol Fumarate 1 puff 02/17/17 11:15 02/18/17 10:05 Symbicort 160/4.5mcg - IH 1 inh BID [facility] Administration Bupropion HCl 75 mg 02/17/17 11:15 02/18/17 10:04 Wellbutrin - PO 75 mg DAILY [facility] Administration Carvedilol 6.25 mg 02/17/17 11:15 02/18/17 10:04 Coreg - PO 6.25 mg BID [facility] Administration Cholecalciferol 1,000 unit 02/17/17 11:15 02/18/17 10:04 Vitamin D3 - PO 1,000 unit DAILY [facility] Administration Clopidogrel Bisulfate 75 mg 02/17/17 11:15 02/18/17 10:03 Plavix - PO 75 mg DAILY [facility] Administration Docusate Sodium 100 mg 02/17/17 22:00 02/18/17 10:04 Colace - PO 100 mg BID [facility] Administration Ferrous Sulfate 325 mg 02/17/17 11:15 02/17/17 13:01 Feosol - PO 325 mg Q48H [facility] Administration Milrinone Lactate/Dextrose 100 mls @ 9.716 mls/hr 02/17/17 11:00 02/18/17 11:12 Milrinone 20mg/100ml Ivpb - IVPB 9.716 mls/hr TITR [facility] Administration 0.35 MCG/KG/MIN Insulin Aspart 1 vial 02/17/17 16:30 02/18/17 11:48 Novolog Vial Sliding Scale - SQ 2 units ACHS [facility] Administration Protocol Multivitamins/Minerals/Vitamin C 1 tab 02/18/17 10:00 02/18/17 10:04 Tab-A-Vit - PO 1 tab DAILY [facility] Administration Ondansetron HCl 4 mg 02/17/17 11:09 Zofran Injection IVPB Q6H PRN NAUSEA Ranitidine HCl 75 mg 02/17/17 11:15 02/18/17 10:04 Zantac - PO 75 mg DAILY [facility] Administration Starch 1 each 02/17/17 22:00 02/17/17 21:27 Anusol Suppository - RC 1 each HS [facility] Administration Warfarin Sodium 4 mg 02/17/17 18:00 Coumadin - PO DAILY@1800 [facility] ASSESSMENT/PLAN: Problem List - Problems (1) CHF (congestive heart failure) Assessment/Plan: -appreciate cardiology consult -although still with dyspnea, states he is slightly better. -continue meds at this time. Code(s): I50.9 - HEART FAILURE, UNSPECIFIED Qualifiers: Congestive heart failure type: systolic Congestive heart failure chronicity: acute on chronic Qualified Code(s): I50.23 - Acute on chronic systolic (congestive) heart failure (2) Acute on chronic renal insufficiency Assessment/Plan: -improving cr to 1.9 Code(s): N28.9 - DISORDER OF KIDNEY AND URETER, UNSPECIFIED N18.9 - CHRONIC KIDNEY DISEASE, UNSPECIFIED (3) Atrial fibrillation Assessment/Plan: -held coumadin yesterday and will resume today for INR of 2.42 Code(s): I48.91 - UNSPECIFIED ATRIAL FIBRILLATION Qualifiers: Atrial fibrillation type: chronic Qualified Code(s): I48.2 - Chronic atrial fibrillation (4) CAD (coronary artery disease) Assessment/Plan: -continue home meds. Code(s): I25.10 - ATHSCL HEART DISEASE OF [place] CORONARY ARTERY W/O ANG PCTRS (5) COPD (chronic obstructive pulmonary disease) Assessment/Plan: -oxygen dependance with oxygen sat monitor. Code(s): J44.9 - CHRONIC OBSTRUCTIVE PULMONARY DISEASE, UNSPECIFIED (6) Dyspnea on exertion Code(s): R06.09 - OTHER FORMS OF DYSPNEA Visit type - Emergency Visit Emergency Visit: No - New Patient This patient is new to me today: Yes Date on this admission: 02/18/17 - Critical Care Critical Care patient: No - Discharge Referral Referred to [facility] Med P.C.: No
--- NOTE | 2017-02-18 13:36 | PN ---
Progress Note (short form) - Note Progress Note: Patient seen and examined in the Telemetry unit. On Milrinone. NAD but mildly tachypneic on 4 L NC O2. No CP. Intake & Output 02/15/17 02/16/17 02/17/17 02/18/17 23:59 23:59 23:59 23:59 Intake Total 620 Balance 620 Weight 204 lb 207 lb 4 oz 207 lb 6 oz Last Vital Signs Temp Pulse Resp BP Pulse Ox 100.1 F H 72 22 100/57 95 02/18/17 10:00 02/18/17 10:58 02/18/17 10:00 02/18/17 10:00 02/18/17 10:58 Active Medications Acetaminophen (Tylenol -) 650 mg PO Q4H PRN PRN Reason: FEVER OR PAIN Last Admin: 02/18/17 11:48 Dose: 650 mg Aclidinium [place] (Tudorza -) 1 puff IH BID [facility] Last Admin: 02/18/17 10:05 Dose: 1 puff Albuterol Sulfate (Ventolin 0.083% Nebulizer Soln -) 1 amp NEB Q6H PRN PRN Reason: SHORT OF BREATH/WHEEZING Last Admin: 02/18/17 06:10 Dose: 1 amp Allopurinol (Zyloprim -) 100 mg PO DAILY [facility] Last Admin: 02/18/17 10:04 Dose: 100 mg Ascorbic Acid (Vitamin C -) 1,000 mg PO DAILY [facility] Last Admin: 02/18/17 10:03 Dose: 1,000 mg Atorvastatin Calcium (Lipitor -) 40 mg PO HS [facility] Last Admin: 02/17/17 21:27 Dose: 40 mg Budesonide/Formoterol Fumarate (Symbicort 160/4.5mcg -) 1 puff IH BID [facility] Last Admin: 02/18/17 10:05 Dose: 1 inh Bupropion HCl (Wellbutrin -) 75 mg PO DAILY [facility] Last Admin: 02/18/17 10:04 Dose: 75 mg Carvedilol (Coreg -) 6.25 mg PO BID [facility] Last Admin: 02/18/17 10:04 Dose: 6.25 mg Cholecalciferol (Vitamin D3 -) 1,000 unit PO DAILY [facility] Last Admin: 02/18/17 10:04 Dose: 1,000 unit Clopidogrel Bisulfate (Plavix -) 75 mg PO DAILY [facility] Last Admin: 02/18/17 10:03 Dose: 75 mg Docusate Sodium (Colace -) 100 mg PO BID [facility] Last Admin: 02/18/17 10:04 Dose: 100 mg Ferrous Sulfate (Feosol -) 325 mg PO Q48H [facility] Last Admin: 02/17/17 13:01 Dose: 325 mg Milrinone Lactate/Dextrose (Milrinone 20mg/100ml Ivpb -) 100 mls @ 9.716 mls/ hr IVPB TITR [facility] PRN Reason: 0.35 MCG/KG/MIN Last Admin: 02/18/17 11:12 Dose: 9.716 mls/hr Insulin Aspart (Novolog Vial Sliding Scale -) 1 vial SQ ACHS [facility] PRN Reason: Protocol Last Admin: 02/18/17 11:48 Dose: 2 units Multivitamins/Minerals/Vitamin C (Tab-A-Vit -) 1 tab PO DAILY [facility] Last Admin: 02/18/17 10:04 Dose: 1 tab Ondansetron HCl (Zofran Injection) 4 mg IVPB Q6H PRN PRN Reason: NAUSEA Ranitidine HCl (Zantac -) 75 mg PO DAILY [facility] Last Admin: 02/18/17 10:04 Dose: 75 mg Starch (Anusol Suppository -) 1 each RC HS [facility] Last Admin: 02/17/17 21:27 Dose: 1 each Warfarin Sodium (Coumadin -) 4 mg PO DAILY@1800 [facility] GENERAL: Awake, alert, mildly tachypneic at rest HEAD: Normal with no signs of trauma. NECK: Trachea midline, full range of motion, supple. LUNGS: Bibasilar rales HEART: irregular ABDOMEN: Soft, NT, ND, (+) BS EXTREMITIES: 2+ pulses, warm, well-perfused, no edema. SKIN: Warm, dry, normal turgor, no rashes or lesions noted Laboratory Results - last 24 hr 02/17/17 02/17/17 02/18/17 15:33 21:26 05:50 WBC RBC Hgb Hct MCV MCHC RDW Plt Count MPV Neutrophils % Lymphocytes % Monocytes % Eosinophils % Basophils % INR Sodium Potassium Chloride Carbon Dioxide Anion Gap BUN Creatinine POC Glucometer 234 232 181 Random Glucose Calcium Phosphorus Magnesium 02/18/17 02/18/17 02/18/17 07:19 07:19 07:19 WBC 9.4 RBC 4.33 Hgb 11.5 L Hct 36.3 MCV 83.9 MCHC 31.6 L RDW 19.2 H Plt Count 197 MPV 9.6 Neutrophils % 78.8 Lymphocytes % 9.4 D Monocytes % 10.3 H Eosinophils % 1.1 Basophils % 0.4 INR 2.42 H Sodium 145 Potassium 3.6 D Chloride 102 Carbon Dioxide 33 H Anion Gap 10 BUN 48 H Creatinine 1.9 H D POC Glucometer Random Glucose 178 H D Calcium 8.8 Phosphorus 2.9 Magnesium 2.6 H 02/18/17 11:27 WBC RBC Hgb Hct MCV MCHC RDW Plt Count MPV Neutrophils % Lymphocytes % Monocytes % Eosinophils % Basophils % INR Sodium Potassium Chloride Carbon Dioxide Anion Gap BUN Creatinine POC Glucometer 193 Random Glucose Calcium Phosphorus Magnesium Problem List - Problems (1) CHF (congestive heart failure) Code(s): I50.9 - HEART FAILURE, UNSPECIFIED Qualifiers: (2) CKD (chronic kidney disease) Code(s): N18.9 - CHRONIC KIDNEY DISEASE, UNSPECIFIED Qualifiers: (3) AICD (automatic cardioverter/defibrillator) present Code(s): Z95.810 - PRESENCE OF AUTOMATIC (IMPLANTABLE) CARDIAC DEFIBRILLATOR (4) Acute and chronic respiratory failure ([id number]) Code(s): J96.20 - ACUTE AND CHR RESP FAILURE, UNSP W HYPOXIA OR HYPERCAPNIA Qualifiers: Respiratory failure complication: hypoxia Qualified Code(s): J96.21 - Acute and chronic respiratory failure with hypoxia (5) Acute on chronic renal insufficiency Code(s): N28.9 - DISORDER OF KIDNEY AND URETER, UNSPECIFIED N18.9 - CHRONIC KIDNEY DISEASE, UNSPECIFIED (6) Atrial fibrillation Code(s): I48.91 - UNSPECIFIED ATRIAL FIBRILLATION Qualifiers: Atrial fibrillation type: chronic Qualified Code(s): I48.2 - Chronic atrial fibrillation (7) CAD (coronary artery disease) Code(s): I25.10 - ATHSCL HEART DISEASE OF [place] CORONARY ARTERY W/O ANG PCTRS (8) COPD (chronic obstructive pulmonary disease) Code(s): J44.9 - CHRONIC OBSTRUCTIVE PULMONARY DISEASE, UNSPECIFIED (9) Cardiomyopathy Code(s): I42.9 - CARDIOMYOPATHY, UNSPECIFIED (10) Diabetes Code(s): E11.9 - TYPE 2 DIABETES MELLITUS WITHOUT COMPLICATIONS Qualifiers: Diabetes mellitus type: type 2 Diabetes mellitus complication status: with kidney complications Diabetes mellitus complication detail: with chronic kidney disease Chronic kidney disease stage: stage 4 (severe) (11) Dyspnea on exertion Code(s): R06.09 - OTHER FORMS OF DYSPNEA (12) Presence of permanent cardiac pacemaker Code(s): Z95.0 - PRESENCE OF CARDIAC PACEMAKER PLAN IV LASIX O2 MILRINONE INHALED BRONCHODILATORS MONITOR LYTES ,RENAL FUNCTION DAILY WTS AC MONITOR INR DR HAWKINS
[2017-02-18] MEDS ORDERED: FUROSEMIDE 40 MG/4 ML INJECTABLE VIAL IVPUSH ONE (16:59)
[2017-02-18] MEDS ORDERED: POTASSIUM CHLORIDE TABS 20 MEQ TABLET.ER (FP) PO ONE (17:00)
[2017-02-18] MEDS: WARFARIN NA 2 MG TABLET (UD) PO SCH (18:10)
--- NOTE | 2017-02-18 20:52 | PN ---
Progress Note (short form) - Note Progress Note: cc: sob S: persistent dyspnea with exertion ambulating to bathroom. + cough worse with lying down (improved from yesterday). no cp, palps, dizziness Current Medications Acetaminophen (Tylenol -) 650 mg PO Q4H PRN PRN Reason: FEVER OR PAIN Last Admin: 02/18/17 11:48 Dose: 650 mg Aclidinium [place] (Tudorza -) 1 puff IH BID [facility]PL[facility] BY [facility] Last Admin: 02/18/17 10:05 Dose: 1 puff Albuterol Sulfate (Ventolin 0.083% Nebulizer Soln -) 1 amp NEB Q6H PRN PRN Reason: SHORT OF BREATH/WHEEZING Last Admin: 02/18/17 19:42 Dose: 1 amp Allopurinol (Zyloprim -) 100 mg PO DAILY [facility] Last Admin: 02/18/17 10:04 Dose: 100 mg Ascorbic Acid (Vitamin C -) 1,000 mg PO DAILY [facility] Last Admin: 02/18/17 10:03 Dose: 1,000 mg Atorvastatin Calcium (Lipitor -) 40 mg PO HS [facility]PL[facility] BY [facility] Last Admin: 02/17/17 21:27 Dose: 40 mg Budesonide/Formoterol Fumarate (Symbicort 160/4.5mcg -) 1 puff IH BID [facility] Last Admin: 02/18/17 10:05 Dose: 1 inh Bupropion HCl (Wellbutrin -) 75 mg PO DAILY [facility] Last Admin: 02/18/17 10:04 Dose: 75 mg Carvedilol (Coreg -) 6.25 mg PO BID [facility] Last Admin: 02/18/17 10:04 Dose: 6.25 mg Cholecalciferol (Vitamin D3 -) 1,000 unit PO DAILY [facility] Last Admin: 02/18/17 10:04 Dose: 1,000 unit Clopidogrel Bisulfate (Plavix -) 75 mg PO DAILY [facility] Last Admin: 02/18/17 10:03 Dose: 75 mg Docusate Sodium (Colace -) 100 mg PO BID [facility] Last Admin: 02/18/17 10:04 Dose: 100 mg Ferrous Sulfate (Feosol -) 325 mg PO Q48H [facility]PLACED BY [facility] Last Admin: 02/17/17 13:01 Dose: 325 mg Milrinone Lactate/Dextrose (Milrinone 20mg/100ml Ivpb -) 100 mls @ 9.716 mls/ hr IVPB TITR [facility] PRN Reason: 0.35 MCG/KG/MIN Last Admin: 02/18/17 11:12 Dose: 9.716 mls/hr Insulin Aspart (Novolog Vial Sliding Scale -) 1 vial SQ ACHS [facility] PRN Reason: Protocol Last Admin: 02/18/17 18:10 Dose: Not Given Multivitamins/Minerals/Vitamin C (Tab-A-Vit -) 1 tab PO DAILY [facility] Last Admin: 02/18/17 10:04 Dose: 1 tab Ondansetron HCl (Zofran Injection) 4 mg IVPB Q6H PRN PRN Reason: NAUSEA Ranitidine HCl (Zantac -) 75 mg PO DAILY [facility] Last Admin: 02/18/17 10:04 Dose: 75 mg Starch (Anusol Suppository -) 1 each RC HS [facility]PLAC[facility] BY [facility] Last Admin: 02/17/17 21:27 Dose: 1 each Warfarin Sodium (Coumadin -) 4 mg PO DAILY@1800 [facility]PLACED [facility] Last Admin: 02/18/17 18:10 Dose: 4 mg Vital Signs - 24 hr 02/17/17 02/17/17 02/18/17 22:00 22:14 02:00 Temperature 98.1 F 97.3 F L Pulse Rate 76 20 L Respiratory 16 20 20 Rate Blood Pressure 113/64 116/84 O2 Sat by Pulse 98 Oximetry (%) 02/18/17 02/18/17 02/18/17 05:57 09:00 10:00 Temperature 98 F 100.1 F H Pulse Rate 81 80 Respiratory 22 22 22 Rate Blood Pressure 125/63 100/57 O2 Sat by Pulse 95 Oximetry (%) 02/18/17 02/18/17 02/18/17 10:58 14:00 17:00 Temperature 97.5 F L 97.2 F L Pulse Rate 72 76 82 Respiratory 76 H 20 Rate Blood Pressure 120/70 106/67 O2 Sat by Pulse 95 Oximetry (%) Intake & Output 02/16/17 02/17/17 02/18/17 02/19/17 07:59 07:59 07:59 07:59 Intake Total 120 616 Balance 120 616 Weight 204 lb 207 lb 6 oz NAD, calm JVD elevated, neck supple RRR nl s1, s2 no m/r/g. bibasilar crackles, nl effort + bs soft nd, nt trace le edema no c/c aaox3 pos pt dp, no carotid bruits no jaundice diaphoresis CBC, BMP 02/18/17 07:19 02/18/17 07:19 Laboratory Tests 02/18/17 02/18/17 07:19 07:19 INR 2.42 H Magnesium 2.6 H ecg 02/16/17: vp training echo 05/2016: sev lve, global hk, sev dec lvef, mild rve, nl rv fcn, estefania, mild- mod mr, mv ring, tv ring, mild tr, mild pr, mild phtn, ivc mild dil cxr: chf tele: vp training, occasional pvc's vs intrinsic qrs, nsvt a/p: 76 year old man with PMH of IDDM, COPD (O2 dependant) HTN, HLD, Afib (on coumadin), CAD s/p CABG 2012, end stage CHF with ICD placement (on milrinone pump), PVD, BPH here with sob. sob, acute systolic CHF, end stage systolic heart failure s/p ICD, on home milrinone infusion: - here with sob/jose - cxr seems similar to priors with chronic congestive changes - bnp lower than prior admits - cont milrinone at patient's home maintenance dose (on chronic infusion destination therapy)--0.35 mcg/kg/min. - cont home coreg. adverse effects to acei. - recent office icd check with stable function - 02/17 unclear if sxs from chf or some URI/copd (productive cough). Will give trial of iv lasix 80 x1 today and monitor sxs, cr trend tomorrow to see if improving. - 02/18. creatinine improved after lasix 80 mg IV x 1 yesterday. Will continue daily dosing. afib - currently rate controlled on coreg - cont coumadin per INR PVD - con't AC, statin. CAD s/p CABG - No anginal symptoms, no signs acs. Con't home ac, plavix, atorvastatin, coreg HTN: controlled on coreg HLD: con't statin. chu/ CKD: - improved after IV lasix. copd - per pulm/pmd
[2017-02-18] MEDS: ATORVASTATIN CA 40 MG TABLET (FP) PO SCH (21:08)
[2017-02-18] MEDS: PHENYLEPHRINE 0.25%/STARCH 1 EACH SUPP.RECT RC SCH (22:50)
[2017-02-19] MEDS: ALBUTEROL SO4 0.083% IH SOL 2.5 MG/3 ML VIAL.NEB. NEB PRN ×2 (03:30→09:13)
[2017-02-19] MEDS: INSULIN SLIDING SCALE (NOVOLOG) 1 VIAL SQ SCH ×4 (07:22→21:39)
[2017-02-19 07:47] LABS: INR 1.96 (0.82-1.09); PROTHROMBIN TIME (PATIENT) 21.9 SEC (9.98-11.88)
[2017-02-19 08:11] LABS: MCH 26.5 pg (25.7-33.7); MCHC 31.9 g/dl (32.0-35.9); MEAN CELL VOLUME 83.1 fl (80-96); MEAN PLT VOLUME 8.9 fl (7.5-11.1); RDW 18.8 % (11.9-15.9); WHITE BLOOD COUNT 8.5 K/mm3 (4.0-10.0)
[2017-02-19 08:13] LABS: ALBUMIN 3.4 g/dl (3.4-5.0); ANION GAP 8 (8-16); CALCIUM 9.4 mg/dL (8.5-10.1); CO2 32 mmol/L (21-32); GLUCOSE,RANDOM 131 mg/dL (74-106)
[2017-02-19 08:18] LABS: ALK PHOS 148 U/L (45-117); BILIRUBIN,TOTAL 1.2 mg/dL (0.2-1.0); CREATININE 1.9 mg/dL (0.7-1.3); SGOT/AST 31 U/L (15-37); SGPT/ALT 22 U/L (12-78); TOT PROT 7.3 g/dl (6.4-8.2)
[2017-02-19 09:38] LABS: PLATELET COUNT 185 K/MM3 (134-434); PLATELET ESTIMATE ADEQUATE (NORMAL)
[2017-02-19] MEDS: MILRINONE 20MG/100ML IVPB - 100 ML IVPB SCH ×2 (09:57→20:32)
--- NOTE | 2017-02-19 10:20 | PN ---
Physical Exam: Hospitalist covering for Dr. Pritchard. SUBJECTIVE: Patient seen and examined. Reports feeling better, but not quite at baseline yet. OBJECTIVE: Hospital day #2 for this 76 year old male with a history of IDDM, COPD (O2 dependent) HTN, HLD, Afib (on Coumadin), CAD s/p CABG 2012, end stage CHF with ICD placement and Milronone pump, PVD, and BPH admitted on 02/17 with worsening FREIRE. Vital Signs Period Temp Pulse Resp BP Sys/Orantes Pulse Ox Last 24 Hr 97.0 F-98.6 F 72-82 20-76 106-120/49-73 95-96 GENERAL: The patient is awake, alert, and fully oriented, in no acute distress. HEAD: Normal with no signs of trauma. EYES: PERRL, extraocular movements intact, sclera anicteric, conjunctiva clear. No ptosis. ENT: Ears normal, nares patent, oropharynx clear without exudates, moist mucous membranes. NECK: Trachea midline, full range of motion, supple. LUNGS: Breath sounds equal, clear to auscultation bilaterally, no wheezes, no crackles, no accessory muscle use. HEART: Regular rate and rhythm, S1, S2 without murmur, rub or gallop. ABDOMEN: Soft, nontender, nondistended, normoactive bowel sounds, no guarding, no rebound, no hepatosplenomegaly, no masses. EXTREMITIES: 2+ pulses, warm, well-perfused, no edema. NEUROLOGICAL: Cranial nerves II through XII grossly intact. Normal speech, gait not observed. PSYCH: Normal mood, normal affect. SKIN: Warm, dry, normal turgor, no rashes or lesions noted Laboratory Results - last 24 hr 02/18/17 02/18/17 02/19/17 11:27 21:09 05:35 WBC 8.5 RBC 4.53 Hgb 12.0 Hct 37.7 MCV 83.1 MCHC 31.9 L RDW 18.8 H Plt Count 185 MPV 8.9 Platelet Estimate Adequate Platelet Comment No clumping noted INR Sodium Potassium Chloride Carbon Dioxide Anion Gap BUN Creatinine Creat Clearance w eGFR POC Glucometer 193 273 Random Glucose Calcium Total Bilirubin AST ALT Alkaline Phosphatase Total Protein Albumin 02/19/17 02/19/17 02/19/17 05:35 05:35 06:55 WBC RBC Hgb Hct MCV MCHC RDW Plt Count MPV Platelet Estimate Platelet Comment INR 1.96 H Sodium 142 Potassium 4.6 D Chloride 102 Carbon Dioxide 32 Anion Gap 8 BUN 49 H Creatinine 1.9 H Creat Clearance w eGFR 34.46 POC Glucometer 146 Random Glucose 131 H D Calcium 9.4 Total Bilirubin 1.2 H D AST 31 D ALT 22 D Alkaline Phosphatase 148 H Total Protein 7.3 Albumin 3.4 Active Medications Generic Name Dose Route Start Last Admin Trade Name Freq PRN Reason Stop Dose Admin Acetaminophen 650 mg 02/17/17 11:09 02/18/17 11:48 Tylenol - PO 650 mg Q4H PRN Administration FEVER OR PAIN Aclidinium [place] 1 puff 02/17/17 22:00 02/18/17 21:08 Tudorza - IH 1 puff BID [facility] Administration Albuterol Sulfate 1 amp 02/17/17 11:07 02/19/17 09:13 Ventolin 0.083% Nebulizer Soln - NEB 1 amp Q6H PRN Administration SHORT OF BREATH/WHEEZING Allopurinol 100 mg 02/18/17 10:00 02/18/17 10:04 Zyloprim - PO 100 mg DAILY [facility] Administration Ascorbic Acid 1,000 mg 02/18/17 10:00 02/18/17 10:03 Vitamin C - PO 1,000 mg DAILY [facility] Administration Atorvastatin Calcium 40 mg 02/17/17 22:00 02/18/17 21:08 Lipitor - PO 40 mg HS [facility] Administration Budesonide/Formoterol Fumarate 1 puff 02/17/17 11:15 02/18/17 21:08 Symbicort 160/4.5mcg - IH 1 inh BID [facility] Administration Bupropion HCl 75 mg 02/17/17 11:15 02/18/17 10:04 Wellbutrin - PO 75 mg DAILY [facility] Administration Carvedilol 6.25 mg 02/17/17 11:15 02/18/17 21:08 Coreg - PO 6.25 mg BID [facility] Administration Cholecalciferol 1,000 unit 02/17/17 11:15 02/18/17 10:04 Vitamin D3 - PO 1,000 unit DAILY [facility] Administration Clopidogrel Bisulfate 75 mg 02/17/17 11:15 02/18/17 10:03 Plavix - PO 75 mg DAILY [facility] Administration Docusate Sodium 100 mg 02/17/17 22:00 02/18/17 21:08 Colace - PO 100 mg BID [facility] Administration Ferrous Sulfate 325 mg 02/17/17 11:15 02/17/17 13:01 Feosol - PO 325 mg Q48H [facility] Administration Milrinone Lactate/Dextrose 100 mls @ 9.716 mls/hr 02/17/17 11:00 02/18/17 11:12 Milrinone 20mg/100ml Ivpb - IVPB 9.716 mls/hr TITR [facility] Administration 0.35 MCG/KG/MIN Insulin Aspart 1 vial 02/17/17 16:30 02/19/17 07:22 Novolog Vial Sliding Scale - SQ Not Given ACHS [facility] Protocol Multivitamins/Minerals/Vitamin C 1 tab 02/18/17 10:00 02/18/17 10:04 Tab-A-Vit - PO 1 tab DAILY [facility] Administration Ondansetron HCl 4 mg 02/17/17 11:09 Zofran Injection IVPB Q6H PRN NAUSEA Ranitidine HCl 75 mg 02/17/17 11:15 02/18/17 10:04 Zantac - PO 75 mg DAILY [facility] Administration Starch 1 each 02/17/17 22:00 02/18/17 22:50 Anusol Suppository - RC Not Given HS [facility] Warfarin Sodium 4 mg 02/17/17 18:00 02/18/17 18:10 Coumadin - PO 4 mg DAILY@1800 [facility] Administration ASSESSMENT/PLAN: 1. CHF exacerbation -Continue Milrinone at patient's home maintenance dose (0.35 mcg/kg/min) -Cont home Coreg -Does not tolerate ACEI -Weight up 1.5kg today; continue Lasix -Monitor on telemetry -Cardiology following 2. Respiratory failure ([id number]) -Continue diuresis -Continue supplemental O2 3. [id number] renal insufficiency -Cardiorenal -Cr 1.9 (from 2.5 on admission) -Follow 4. Atrial fibrillation -Rate-controlled -Continue Coumadin per INR 5. CAD -No active issues -Continue home Plavix/Liptor/Coreg 6. COPD -Continue Symbicort, Tudorza -Inhaled bronchodilators as needed -Oxygen supplementation -Pulmonary following 7. NIDDM -FSACHS -ISS -Diabetic det DISPO: Requires inpatient services. Visit type - Emergency Visit Emergency Visit: Yes ED Registration Date: 02/17/17 Care time: The patient presented to the Emergency Department on the above date and was hospitalized for further evaluation of their emergent condition. - New Patient This patient is new to me today: Yes Date on this admission: 02/19/17 - Critical Care Critical Care patient: No - Discharge Referral Referred to [facility] No
[2017-02-19] MEDS: CLOPIDOGREL BISULFATE 75 MG TABLET (FP) PO SCH (10:52)
[2017-02-19] MEDS: RANITIDINE HCL 150 MG TABLET (FP) PO SCH (10:52)
[2017-02-19] MEDS: ALLOPURINOL 100 MG TABLET (FP) PO SCH (10:53)
[2017-02-19] MEDS: CARVEDILOL 6.25 MG TABLET (FP) PO SCH ×2 (10:53→21:37)
[2017-02-19] MEDS: CHOLECALCIFEROL (VITAMIN D3) 1,000 UNIT TABLET (FP) PO SCH (10:53)
[2017-02-19] MEDS: ACLIDINIUM BROMIDE 400 MCG/INH AERO.POWD IH SCH (10:53)
[2017-02-19] MEDS: buPROPion HCL 75 MG TABLET PO SCH (10:53)
[2017-02-19] MEDS: DOCUSATE SODIUM 100 MG CAPSULE (FP) PO SCH ×2 (10:53→21:37)
[2017-02-19] MEDS: ASCORBIC ACID 500 MG TABLET (FP) PO SCH (10:53)
[2017-02-19] MEDS: MULTIVITAMINS (DAILY MVI) TABLET (FP) PO SCH (10:53)
[2017-02-19] MEDS: FERROUS SO4 325 MG TABLET (FP) PO SCH (10:53)
[2017-02-19] MEDS: BUDESONIDE/FORMETEROL FUMARATE 160/4.5 mcg INHALER IH SCH ×2 (10:54→21:37)
--- NOTE | 2017-02-19 13:41 | PN ---
Progress Note (short form) - Note Progress Note: cc: sob S: persistent dyspnea with exertion ambulating to bathroom. + cough slightly better but persists. no cp, palps, dizziness. States he is feeling better but has had continued weight gain. Current Medications Acetaminophen (Tylenol -) 650 mg PO Q4H PRN PRN Reason: FEVER OR PAIN Last Admin: 02/18/17 11:48 Dose: 650 mg Aclidinium [place] (Tudorza -) 1 puff IH BID [facility] Last Admin: 02/19/17 10:53 Dose: 1 puff Albuterol Sulfate (Ventolin 0.083% Nebulizer Soln -) 1 amp NEB Q6H PRN PRN Reason: SHORT OF BREATH/WHEEZING Last Admin: 02/19/17 09:13 Dose: 1 amp Allopurinol (Zyloprim -) 100 mg PO DAILY [facility] Last Admin: 02/19/17 10:53 Dose: 100 mg Ascorbic Acid (Vitamin C -) 1,000 mg PO DAILY [facility] Last Admin: 02/19/17 10:53 Dose: 1,000 mg Atorvastatin Calcium (Lipitor -) 40 mg PO HS [facility] Last Admin: 02/18/17 21:08 Dose: 40 mg Budesonide/Formoterol Fumarate (Symbicort 160/4.5mcg -) 1 puff IH BID [facility] Last Admin: 02/19/17 10:54 Dose: 1 inh Bupropion HCl (Wellbutrin -) 75 mg PO DAILY [facility] Last Admin: 02/19/17 10:53 Dose: 75 mg Carvedilol (Coreg -) 6.25 mg PO BID [facility] Last Admin: 02/19/17 10:53 Dose: 6.25 mg Cholecalciferol (Vitamin D3 -) 1,000 unit PO DAILY [facility] Last Admin: 02/19/17 10:53 Dose: 1,000 unit Clopidogrel Bisulfate (Plavix -) 75 mg PO DAILY [facility] Last Admin: 02/19/17 10:52 Dose: 75 mg Docusate Sodium (Colace -) 100 mg PO BID [facility] Last Admin: 02/19/17 10:53 Dose: 100 mg Ferrous Sulfate (Feosol -) 325 mg PO Q48H [facility] Last Admin: 02/19/17 10:53 Dose: 325 mg Milrinone Lactate/Dextrose (Milrinone 20mg/100ml Ivpb -) 100 mls @ 9.716 mls/ hr IVPB TITR [facility] PRN Reason: 0.35 MCG/KG/MIN Last Admin: 02/19/17 09:57 Dose: 9.716 mls/hr Insulin Aspart (Novolog Vial Sliding Scale -) 1 vial SQ ACHS [facility] PRN Reason: Protocol Last Admin: 02/19/17 11:57 Dose: 2 units Multivitamins/Minerals/Vitamin C (Tab-A-Vit -) 1 tab PO DAILY [facility] Last Admin: 02/19/17 10:53 Dose: 1 tab Ondansetron HCl (Zofran Injection) 4 mg IVPB Q6H PRN PRN Reason: NAUSEA Ranitidine HCl (Zantac -) 75 mg PO DAILY [facility] Last Admin: 02/19/17 10:52 Dose: 75 mg Starch (Anusol Suppository -) 1 each RC HS [facility] Last Admin: 02/18/17 22:50 Dose: Not Given Warfarin Sodium (Coumadin -) 4 mg PO DAILY@1800 [facility] Last Admin: 02/18/17 18:10 Dose: 4 mg Vital Signs - 24 hr 02/18/17 02/18/17 02/18/17 14:00 17:00 21:00 Temperature 97.5 F L 97.2 F L Pulse Rate 76 82 Respiratory 76 H 20 20 Rate Blood Pressure 120/70 106/67 O2 Sat by Pulse 96 Oximetry (%) 02/18/17 02/19/17 02/19/17 22:00 02:00 09:00 Temperature 98.6 F 97.0 F L 98.5 F Pulse Rate 75 75 Respiratory 22 20 20 Rate Blood Pressure 115/73 107/49 O2 Sat by Pulse 92 L Oximetry (%) 02/19/17 02/19/17 10:00 11:04 Temperature 97.7 F Pulse Rate 75 74 Respiratory 18 Rate Blood Pressure 117/67 O2 Sat by Pulse 92 L Oximetry (%) Intake & Output 02/17/17 02/18/17 02/19/17 02/20/17 07:59 07:59 07:59 07:59 Intake Total 120 1036 Balance 120 1036 Weight 204 lb 207 lb 6 oz 210 lb 6 oz NAD, calm JVD elevated, neck supple RRR nl s1, s2 no m/r/g. 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 sob, acute systolic CHF, end stage systolic heart failure s/p ICD, on home milrinone infusion: - here with sob/jose - cxr seems similar to priors with chronic congestive changes - bnp lower than prior admits - cont milrinone at patient's home maintenance dose (on chronic infusion destination therapy)--0.35 mcg/kg/min. - cont home coreg. adverse effects to acei. - recent office icd check with stable function - 02/17 unclear if sxs from chf or some URI/copd (productive cough). Will give trial of iv lasix 80 x1 today and monitor sxs, cr trend tomorrow to see if improving. - 02/18. Symptoms improving, creatinine improved after lasix 80 mg IV x 1 yesterday. Will continue daily dosing. - 02/19 Ongoing weight gain, will increase lasix to bid dosing. afib - currently rate controlled on coreg - cont coumadin per INR PVD - con't AC, statin. CAD s/p CABG - No anginal symptoms, no signs acs. Con't home ac, plavix, atorvastatin, coreg HTN: controlled on coreg HLD: con't statin. chu/ CKD: - improving/stable on IV lasix. con't to monitor. copd - per pulm/pmd
[2017-02-19] MEDS: FUROSEMIDE 40 MG/4 ML INJECTABLE VIAL IVPUSH SCH (14:51)
--- NOTE | 2017-02-19 15:54 | PN ---
Progress Note (short form) - Note Progress Note: Patient seen and examined in the Telemetry unit. Cough is a little better today, but still with FREIRE. NAD, on 4 L NC O2. No CP. Intake & Output 02/16/17 02/17/17 02/18/17 02/19/17 23:59 23:59 23:59 23:59 Intake Total 1036 270 Balance 1036 270 Weight 204 lb 207 lb 4 oz 207 lb 6 oz 210 lb 6 oz Last Vital Signs Temp Pulse Resp BP Pulse Ox 97.0 F L 76 20 116/68 92 L 02/19/17 14:16 02/19/17 14:16 02/19/17 14:16 02/19/17 14:16 02/19/17 11:04 Active Medications Acetaminophen (Tylenol -) 650 mg PO Q4H PRN PRN Reason: FEVER OR PAIN Last Admin: 02/18/17 11:48 Dose: 650 mg Aclidinium [place] (Tudorza -) 1 puff IH BID [facility] Last Admin: 02/19/17 10:53 Dose: 1 puff Albuterol Sulfate (Ventolin 0.083% Nebulizer Soln -) 1 amp NEB Q6H PRN PRN Reason: SHORT OF BREATH/WHEEZING Last Admin: 02/19/17 09:13 Dose: 1 amp Allopurinol (Zyloprim -) 100 mg PO DAILY [facility] Last Admin: 02/19/17 10:53 Dose: 100 mg Ascorbic Acid (Vitamin C -) 1,000 mg PO DAILY [facility] Last Admin: 02/19/17 10:53 Dose: 1,000 mg Atorvastatin Calcium (Lipitor -) 40 mg PO HS [facility] Last Admin: 02/18/17 21:08 Dose: 40 mg Budesonide/Formoterol Fumarate (Symbicort 160/4.5mcg -) 1 puff IH BID [facility] Last Admin: 02/19/17 10:54 Dose: 1 inh Bupropion HCl (Wellbutrin -) 75 mg PO DAILY [facility] Last Admin: 02/19/17 10:53 Dose: 75 mg Carvedilol (Coreg -) 6.25 mg PO BID [facility] Last Admin: 02/19/17 10:53 Dose: 6.25 mg Cholecalciferol (Vitamin D3 -) 1,000 unit PO DAILY [facility] Last Admin: 06/25/17 10:53 Dose: 1,000 unit Clopidogrel Bisulfate (Plavix -) 75 mg PO DAILY [facility] Last Admin: 02/19/17 10:52 Dose: 75 mg Docusate Sodium (Colace -) 100 mg PO BID [facility] Last Admin: 02/19/17 10:53 Dose: 100 mg Ferrous Sulfate (Feosol -) 325 mg PO Q48H [facility] Last Admin: 02/19/17 10:53 Dose: 325 mg Furosemide (Lasix Injection -) 80 mg IVPUSH BID@0600,1400 [facility] Last Admin: 02/19/17 14:51 Dose: 80 mg Milrinone Lactate/Dextrose (Milrinone 20mg/100ml Ivpb -) 100 mls @ 9.716 mls/ hr IVPB TITR [facility] PRN Reason: 0.35 MCG/KG/MIN Last Admin: 02/19/17 09:57 Dose: 9.716 mls/hr Insulin Aspart (Novolog Vial Sliding Scale -) 1 vial SQ ACHS [facility] PRN Reason: Protocol Last Admin: 02/19/17 11:57 Dose: 2 units Multivitamins/Minerals/Vitamin C (Tab-A-Vit -) 1 tab PO DAILY [facility] Last Admin: 02/19/17 10:53 Dose: 1 tab Ondansetron HCl (Zofran Injection) 4 mg IVPB Q6H PRN PRN Reason: NAUSEA Ranitidine HCl (Zantac -) 75 mg PO DAILY [facility] Last Admin: 02/19/17 10:52 Dose: 75 mg Starch (Anusol Suppository -) 1 each RC HS [facility] Last Admin: 02/18/17 22:50 Dose: Not Given Warfarin Sodium (Coumadin -) 4 mg PO DAILY@1800 [facility] Last Admin: 02/18/17 18:10 Dose: 4 mg GENERAL: Awake, alert, mildly tachypneic at rest HEAD: Normal with no signs of trauma. NECK: Trachea midline, full range of motion, supple. LUNGS: Bibasilar rales HEART: irregular ABDOMEN: Soft, NT, ND, (+) BS EXTREMITIES: 2+ pulses, warm, well-perfused, no edema. SKIN: Warm, dry, normal turgor, no rashes or lesions noted Laboratory Results - last 24 hr 02/18/17 02/19/17 02/19/17 21:09 05:35 05:35 WBC 8.5 RBC 4.53 Hgb 12.0 Hct 37.7 MCV 83.1 MCHC 31.9 L RDW 18.8 H Plt Count 185 MPV 8.9 Platelet Estimate Adequate Platelet Comment No clumping noted INR 1.96 H Sodium Potassium Chloride Carbon Dioxide Anion Gap BUN Creatinine Creat Clearance w eGFR POC Glucometer 273 Random Glucose Calcium Total Bilirubin AST ALT Alkaline Phosphatase Total Protein Albumin 02/19/17 02/19/17 02/19/17 05:35 06:55 11:42 WBC RBC Hgb Hct MCV MCHC RDW Plt Count MPV Platelet Estimate Platelet Comment INR Sodium 142 Potassium 4.6 D Chloride 102 Carbon Dioxide 32 Anion Gap 8 BUN 49 H Creatinine 1.9 H Creat Clearance w eGFR 34.46 POC Glucometer 146 197 Random Glucose 131 H D Calcium 9.4 Total Bilirubin 1.2 H D AST 31 D ALT 22 D Alkaline Phosphatase 148 H Total Protein 7.3 Albumin 3.4 Problem List - Problems (1) CHF (congestive heart failure) Code(s): I50.9 - HEART FAILURE, UNSPECIFIED Qualifiers: (2) CKD (chronic kidney disease) Code(s): N18.9 - CHRONIC KIDNEY DISEASE, UNSPECIFIED Qualifiers: (3) AICD (automatic cardioverter/defibrillator) present Code(s): Z95.810 - PRESENCE OF AUTOMATIC (IMPLANTABLE) CARDIAC DEFIBRILLATOR (4) Acute and chronic respiratory failure ([id number]) Code(s): J96.20 - ACUTE AND CHR RESP FAILURE, UNSP W HYPOXIA OR HYPERCAPNIA Qualifiers: Respiratory failure complication: hypoxia Qualified Code(s): J96.21 - Acute and chronic respiratory failure with hypoxia (5) Acute on chronic renal insufficiency Code(s): N28.9 - DISORDER OF KIDNEY AND URETER, UNSPECIFIED N18.9 - CHRONIC KIDNEY DISEASE, UNSPECIFIED (6) Atrial fibrillation Code(s): I48.91 - UNSPECIFIED ATRIAL FIBRILLATION Qualifiers: Atrial fibrillation type: chronic Qualified Code(s): I48.2 - Chronic atrial fibrillation (7) CAD (coronary artery disease) Code(s): I25.10 - ATHSCL HEART DISEASE OF [place] CORONARY ARTERY W/O ANG PCTRS (8) COPD (chronic obstructive pulmonary disease) Code(s): J44.9 - CHRONIC OBSTRUCTIVE PULMONARY DISEASE, UNSPECIFIED (9) Cardiomyopathy Code(s): I42.9 - CARDIOMYOPATHY, UNSPECIFIED (10) Diabetes Code(s): E11.9 - TYPE 2 DIABETES MELLITUS WITHOUT COMPLICATIONS Qualifiers: Diabetes mellitus type: type 2 Diabetes mellitus complication status: with kidney complications Diabetes mellitus complication detail: with chronic kidney disease Chronic kidney disease stage: stage 4 (severe) (11) Dyspnea on exertion Code(s): R06.09 - OTHER FORMS OF DYSPNEA (12) Presence of permanent cardiac pacemaker Code(s): Z95.0 - PRESENCE OF CARDIAC PACEMAKER PLAN IV LASIX O2 MILRINONE INHALED BRONCHODILATORS MONITOR LYTES ,RENAL FUNCTION DAILY WTS AC MONITOR INR DR HAWKINS
[2017-02-19] MEDS: WARFARIN NA 2 MG TABLET (UD) PO SCH (17:19)
[2017-02-19] MEDS: TIOTROPIUM BROMIDE 18 MCG/INH (DEVICE W/ 5 CAPSULES) IH SCH (21:35)
[2017-02-19] MEDS: PHENYLEPHRINE 0.25%/STARCH 1 EACH SUPP.RECT RC SCH (21:36)
[2017-02-19] MEDS: ATORVASTATIN CA 40 MG TABLET (FP) PO SCH (21:37)
[2017-02-20] MEDS: FUROSEMIDE 40 MG/4 ML INJECTABLE VIAL IVPUSH SCH (05:57)
[2017-02-20] MEDS: ALBUTEROL SO4 0.083% IH SOL 2.5 MG/3 ML VIAL.NEB. NEB PRN ×3 (06:03→23:18)
[2017-02-20] MEDS: INSULIN SLIDING SCALE (NOVOLOG) 1 VIAL SQ SCH ×4 (06:03→21:24)
[2017-02-20 07:48] LABS: BASOPHIL 0.6 % (0-2.0); EOSINOPHIL 1.5 % (0-4.5); MCH 26.8 pg (25.7-33.7); MCHC 32.6 g/dl (32.0-35.9); MEAN PLT VOLUME 8.5 fl (7.5-11.1); NEUTROPHILS 75.6 % (42.8-82.8); PLATELET COUNT 179 K/MM3 (134-434); RDW 18.4 % (11.9-15.9); WHITE BLOOD COUNT 7.6 K/mm3 (4.0-10.0)
[2017-02-20 08:26] LABS: ANION GAP 8 (8-16); CALCIUM 9.2 mg/dL (8.5-10.1); CO2 34 mmol/L (21-32); CREATININE 1.8 mg/dL (0.7-1.3); GLUCOSE,RANDOM 138 mg/dL (74-106); MAGNESIUM 2.6 mg/dL (1.8-2.4)
[2017-02-20 08:32] LABS: ALBUMIN 3.3 g/dl (3.4-5.0); TOT PROT 7.3 g/dl (6.4-8.2)
[2017-02-20 08:33] LABS: BILIRUBIN,DIRECT 0.3 mg/dL (0.0-0.2)
[2017-02-20] MEDS: RANITIDINE HCL 150 MG TABLET (FP) PO SCH (09:06)
[2017-02-20] MEDS: MULTIVITAMINS (DAILY MVI) TABLET (FP) PO SCH (09:06)
[2017-02-20] MEDS: CLOPIDOGREL BISULFATE 75 MG TABLET (FP) PO SCH (09:06)
[2017-02-20] MEDS: CHOLECALCIFEROL (VITAMIN D3) 1,000 UNIT TABLET (FP) PO SCH (09:06)
[2017-02-20] MEDS: DOCUSATE SODIUM 100 MG CAPSULE (FP) PO SCH ×2 (09:06→21:23)
[2017-02-20] MEDS: CARVEDILOL 6.25 MG TABLET (FP) PO SCH ×2 (09:06→21:23)
[2017-02-20] MEDS: ASCORBIC ACID 500 MG TABLET (FP) PO SCH (09:06)
[2017-02-20] MEDS: buPROPion HCL 75 MG TABLET PO SCH (09:06)
[2017-02-20] MEDS: ALLOPURINOL 100 MG TABLET (FP) PO SCH (09:07)
[2017-02-20] MEDS: BUDESONIDE/FORMETEROL FUMARATE 160/4.5 mcg INHALER IH SCH ×2 (09:07→21:26)
[2017-02-20] MEDS: TIOTROPIUM BROMIDE 18 MCG/INH (DEVICE W/ 5 CAPSULES) IH SCH (09:07)
--- NOTE | 2017-02-20 10:12 | PN ---
Progress Note, Physician Chief Complaint: sob/cough History of Present Illness: sob and cough slightly improved no signif leg swelling no cp, palpit ex cigs - Current Medication List Current Medications: Active Medications Acetaminophen (Tylenol -) 650 mg PO Q4H PRN PRN Reason: FEVER OR PAIN Last Admin: 02/18/17 11:48 Dose: 650 mg Albuterol Sulfate (Ventolin 0.083% Nebulizer Soln -) 1 amp NEB Q6H PRN PRN Reason: SHORT OF BREATH/WHEEZING Last Admin: 02/20/17 06:03 Dose: 1 amp Allopurinol (Zyloprim -) 100 mg PO DAILY [facility] Last Admin: 02/20/17 09:07 Dose: 100 mg Ascorbic Acid (Vitamin C -) 1,000 mg PO DAILY [facility] Last Admin: 02/20/17 09:06 Dose: 1,000 mg Atorvastatin Calcium (Lipitor -) 40 mg PO HS [facility] Last Admin: 02/19/17 21:37 Dose: 40 mg Budesonide/Formoterol Fumarate (Symbicort 160/4.5mcg -) 1 puff IH BID [facility] Last Admin: 02/20/17 09:07 Dose: 1 puff Bupropion HCl (Wellbutrin -) 75 mg PO DAILY [facility] Last Admin: 02/20/17 09:06 Dose: 75 mg Carvedilol (Coreg -) 6.25 mg PO BID [facility] Last Admin: 02/20/17 09:06 Dose: 6.25 mg Cholecalciferol (Vitamin D3 -) 1,000 unit PO DAILY [facility] Last Admin: 02/20/17 09:06 Dose: 1,000 unit Clopidogrel Bisulfate (Plavix -) 75 mg PO DAILY [facility] Last Admin: 02/20/17 09:06 Dose: 75 mg Docusate Sodium (Colace -) 100 mg PO BID [facility] Last Admin: 02/20/17 09:06 Dose: 100 mg Ferrous Sulfate (Feosol -) 325 mg PO Q48H [facility] Last Admin: 02/19/17 10:53 Dose: 325 mg Furosemide (Lasix Injection -) 80 mg IVPUSH BID@0600,1400 [facility] Last Admin: 02/20/17 05:57 Dose: 80 mg Milrinone Lactate/Dextrose (Milrinone 20mg/100ml Ivpb -) 100 mls @ 9.716 mls/ hr IVPB TITR [facility] PRN Reason: 0.35 MCG/KG/MIN Last Admin: 02/19/17 20:32 Dose: 9.716 mls/hr Insulin Aspart (Novolog Vial Sliding Scale -) 1 vial SQ ACHS [facility] PRN Reason: Protocol Last Admin: 02/20/17 06:03 Dose: 2 units Multivitamins/Minerals/Vitamin C (Tab-A-Vit -) 1 tab PO DAILY [facility] Last Admin: 02/20/17 09:06 Dose: 1 tab Ondansetron HCl (Zofran Injection) 4 mg IVPB Q6H PRN PRN Reason: NAUSEA Ranitidine HCl (Zantac -) 75 mg PO DAILY [facility] Last Admin: 02/20/17 09:06 Dose: 75 mg Starch (Anusol Suppository -) 1 each RC HS [facility] Last Admin: 02/19/17 21:36 Dose: 1 each Tiotropium [place] (Spiriva -) 1 puff IH DAILY [facility] Last Admin: 02/20/17 09:07 Dose: 1 puff Warfarin Sodium (Coumadin -) 4 mg PO DAILY@1800 [facility] Last Admin: 02/19/17 17:19 Dose: 4 mg - Objective Vital Signs: Vital Signs Temperature 97.6 F 02/20/17 06:00 Pulse Rate 76 02/20/17 06:00 Respiratory Rate 20 02/20/17 06:00 Blood Pressure 122/77 02/20/17 06:00 O2 Sat by Pulse Oximetry (%) 94 L 02/19/17 21:00 Constitutional: Yes: No Distress, Calm Eyes: No: Sclera Icterus HENT: No: Nasal Congestion Cardiovascular: Yes: Regular Rate and Rhythm, JVD (EJ massively distended at 90 degr (no IJ seen)), S1, S2, Other (PMI non diplaced). No: Gallop, Murmur Respiratory: Yes: CTA Bilaterally. No: Accessory Muscle Use, Rales, Wheezes Gastrointestinal: Yes: Normal Bowel Sounds, Soft. 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 sob, acute systolic CHF, end stage systolic heart failure s/p ICD, on home milrinone infusion: - here with sob/jose - was well diuresed at home to wt 202-204 with creat 2.1 and Na 151--torsemide 80 bid gradually downtitrated back to 40 bid - saw me last week with sob at baseline, but ongoing phlegmy cough--likely sec to advanced copd and NOT chf - developed acute incr sob in afternoon, after left my office for last appt, thinks wt was 207 that day - cxr here worsened, with perihilar edema pattern and RLL infiltrates likely chf (no other clinical signs of PNA) - initial wt 204 standing, up to 207 on HD 2 - suspect diet/fluid noncompliance may be trigger of chf here - cont milrinone at patient's home maintenance dose (on chronic infusion destination therapy)--0.35 mcg/kg/min. - cont home coreg. (no ALESSANDRA due to low bp's and labile creatinines; no Entresto for same reason) - recent office icd check with stable function - 02/17 unclear if sxs from chf or some URI/copd (productive cough). Will give trial of iv lasix 80 x1 today and monitor sxs, cr trend tomorrow to see if improving. - 02/18. Symptoms improving, creatinine improved after lasix 80 mg IV x 1 yesterday. Will continue daily dosing. 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 bid lasix today. responds to metolazone reliably at home when wt rises so low threshold to give this if wt rises further tomorrow (hopefully he is not becoming IV diuretic dependent) - suspect loss of muscle mass over time, with new dry wt closer to 202-204 afib - currently rate controlled on coreg - cont coumadin per INR VT: - 19 beat run NSVT on tele - has ICD - on max tolerated coreg dose - K/Mag optimized--routine lyte mgmt PVD - con't AC, statin. CAD s/p CABG - No anginal symptoms, no signs acs. Con't home ac, plavix, atorvastatin, coreg HTN: controlled on coreg HLD: con't statin. chu/CKD: - suspect cardiorenal syndrome, with renal fxn improving due to IV diuresis - renal fxn presently at baseline copd - per pulm/pmd
--- NOTE | 2017-02-20 10:43 | PN ---
Progress Note, Physician History of Present Illness: PULMONARY ALERT,STILL DYSPNEIC AT REST ON O2, WT 212.2LBS - Current Medication List Current Medications: Active Medications Acetaminophen (Tylenol -) 650 mg PO Q4H PRN PRN Reason: FEVER OR PAIN Last Admin: 02/18/17 11:48 Dose: 650 mg Albuterol Sulfate (Ventolin 0.083% Nebulizer Soln -) 1 amp NEB Q6H PRN PRN Reason: SHORT OF BREATH/WHEEZING Last Admin: 02/20/17 06:03 Dose: 1 amp Allopurinol (Zyloprim -) 100 mg PO DAILY [facility] Last Admin: 02/20/17 09:07 Dose: 100 mg Ascorbic Acid (Vitamin C -) 1,000 mg PO DAILY [facility] Last Admin: 02/20/17 09:06 Dose: 1,000 mg Atorvastatin Calcium (Lipitor -) 40 mg PO HS [facility] Last Admin: 02/19/17 21:37 Dose: 40 mg Budesonide/Formoterol Fumarate (Symbicort 160/4.5mcg -) 1 puff IH BID [facility] Last Admin: 02/20/17 09:07 Dose: 1 puff Bupropion HCl (Wellbutrin -) 75 mg PO DAILY [facility] Last Admin: 02/20/17 09:06 Dose: 75 mg Carvedilol (Coreg -) 6.25 mg PO BID [facility] Last Admin: 02/20/17 09:06 Dose: 6.25 mg Cholecalciferol (Vitamin D3 -) 1,000 unit PO DAILY [facility] Last Admin: 02/20/17 09:06 Dose: 1,000 unit Clopidogrel Bisulfate (Plavix -) 75 mg PO DAILY [facility] Last Admin: 02/20/17 09:06 Dose: 75 mg Docusate Sodium (Colace -) 100 mg PO BID [facility] Last Admin: 02/20/17 09:06 Dose: 100 mg Ferrous Sulfate (Feosol -) 325 mg PO Q48H [facility] Last Admin: 02/19/17 10:53 Dose: 325 mg Furosemide (Lasix Injection -) 80 mg IVPUSH BID@0600,1400 [facility] Last Admin: 02/20/17 05:57 Dose: 80 mg Milrinone Lactate/Dextrose (Milrinone 20mg/100ml Ivpb -) 100 mls @ 9.716 mls/ hr IVPB TITR [facility]INTON PRN Reason: 0.35 MCG/KG/MIN Last Admin: 02/19/17 20:32 Dose: 9.716 mls/hr Insulin Aspart (Novolog Vial Sliding Scale -) 1 vial SQ ACHS [facility] PRN Reason: Protocol Last Admin: 02/20/17 06:03 Dose: 2 units Multivitamins/Minerals/Vitamin C (Tab-A-Vit -) 1 tab PO DAILY [facility] Last Admin: 02/20/17 09:06 Dose: 1 tab Ondansetron HCl (Zofran Injection) 4 mg IVPB Q6H PRN PRN Reason: NAUSEA Ranitidine HCl (Zantac -) 75 mg PO DAILY [facility] Last Admin: 02/20/17 09:06 Dose: 75 mg Starch (Anusol Suppository -) 1 each RC HS [facility] Last Admin: 02/19/17 21:36 Dose: 1 each Tiotropium [place] (Spiriva -) 1 puff IH DAILY [facility] Last Admin: 02/20/17 09:07 Dose: 1 puff Warfarin Sodium (Coumadin -) 4 mg PO DAILY@1800 [facility] Last Admin: 02/19/17 17:19 Dose: 4 mg - Objective Vital Signs: Vital Signs Temperature 97.6 F 02/20/17 06:00 Pulse Rate 76 02/20/17 06:00 Respiratory Rate 20 02/20/17 06:00 Blood Pressure 122/77 02/20/17 06:00 O2 Sat by Pulse Oximetry (%) 94 L 02/19/17 21:00 Constitutional: Yes: Well Nourished, Calm, Other (DYSPNEIC) Eyes: Yes: WNL HENT: Yes: WNL Neck: Yes: WNL Cardiovascular: Yes: Pulse Irregular, S1, S2 Respiratory: Yes: Rales (BILATERAL RALES 1/2 UP) Gastrointestinal: Yes: Normal Bowel Sounds, Soft Extremities: Yes: WNL, Internal Rotation Edema: LLE: Trace, RLE: Trace Labs: CBC, BMP 02/20/17 05:57 02/20/17 05:57 INR, PTT INR 1.96 (0.82-1.09) H 02/19/17 05:35 Problem List - Problems (1) CHF (congestive heart failure) Code(s): I50.9 - HEART FAILURE, UNSPECIFIED Qualifiers: Congestive heart failure type: systolic Congestive heart failure chronicity: acute on chronic Qualified Code(s): I50.23 - Acute on chronic systolic (congestive) heart failure (2) CKD (chronic kidney disease) Code(s): N18.9 - CHRONIC KIDNEY DISEASE, UNSPECIFIED Qualifiers: (3) AICD (automatic cardioverter/defibrillator) present Code(s): Z95.810 - PRESENCE OF AUTOMATIC (IMPLANTABLE) CARDIAC DEFIBRILLATOR (4) Acute and chronic respiratory failure ([id number]) Code(s): J96.20 - ACUTE AND CHR RESP FAILURE, UNSP W HYPOXIA OR HYPERCAPNIA Qualifiers: Respiratory failure complication: hypoxia Qualified Code(s): J96.21 - Acute and chronic respiratory failure with hypoxia (5) Acute on chronic renal insufficiency Code(s): N28.9 - DISORDER OF KIDNEY AND URETER, UNSPECIFIED N18.9 - CHRONIC KIDNEY DISEASE, UNSPECIFIED (6) Atrial fibrillation Code(s): I48.91 - UNSPECIFIED ATRIAL FIBRILLATION Qualifiers: Atrial fibrillation type: chronic Qualified Code(s): I48.2 - Chronic atrial fibrillation (7) CAD (coronary artery disease) Code(s): I25.10 - ATHSCL HEART DISEASE OF [place] CORONARY ARTERY W/O ANG PCTRS (8) COPD (chronic obstructive pulmonary disease) Code(s): J44.9 - CHRONIC OBSTRUCTIVE PULMONARY DISEASE, UNSPECIFIED (9) Cardiomyopathy Code(s): I42.9 - CARDIOMYOPATHY, UNSPECIFIED (10) Diabetes Code(s): E11.9 - TYPE 2 DIABETES MELLITUS WITHOUT COMPLICATIONS Qualifiers: Diabetes mellitus type: type 2 Diabetes mellitus complication status: with kidney complications Diabetes mellitus complication detail: with chronic kidney disease Chronic kidney disease stage: stage 4 (severe) (11) Dyspnea on exertion Code(s): R06.09 - OTHER FORMS OF DYSPNEA (12) Presence of permanent cardiac pacemaker Code(s): Z95.0 - PRESENCE OF CARDIAC PACEMAKER Assessment/Plan IMP ACUTE ON CHRONIC RESPIRATORY FAILURE DECOMPENASTED CHF SEVERE LV DYSFUNCTION S/P ICD ,ON MILRINONE DRIP ASHD S/P CABG ADVANCED COPD ON O2 AFIB ACUTE ON CKD PVD BPH PLAN CONTINUE IV LASIX O2 MILRINONE INHALED BRONCHODILATORS MONITOR LYTES ,RENAL FUNCTION DAILY WTS F/U CHEST X-RAY TODAY AC MONITOR INR DR MONTGOMERY Problem List - Problems (1) CHF (congestive heart failure) Code(s): I50.9 - HEART FAILURE, UNSPECIFIED Qualifiers: (2) CKD (chronic kidney disease) Code(s): N18.9 - CHRONIC KIDNEY DISEASE, UNSPECIFIED Qualifiers: (3) AICD (automatic cardioverter/defibrillator) present Code(s): Z95.810 - PRESENCE OF AUTOMATIC (IMPLANTABLE) CARDIAC DEFIBRILLATOR (4) Acute and chronic respiratory failure ([id number]) Code(s): J96.20 - ACUTE AND CHR RESP FAILURE, UNSP W HYPOXIA OR HYPERCAPNIA Qualifiers: Respiratory failure complication: hypoxia Qualified Code(s): J96.21 - Acute and chronic respiratory failure with hypoxia (5) Acute on chronic renal insufficiency Code(s): N28.9 - DISORDER OF KIDNEY AND URETER, UNSPECIFIED N18.9 - CHRONIC KIDNEY DISEASE, UNSPECIFIED (6) Atrial fibrillation Code(s): I48.91 - UNSPECIFIED ATRIAL FIBRILLATION Qualifiers: Atrial fibrillation type: chronic Qualified Code(s): I48.2 - Chronic atrial fibrillation (7) CAD (coronary artery disease) Code(s): I25.10 - ATHSCL HEART DISEASE OF [place] CORONARY ARTERY W/O ANG PCTRS (8) COPD (chronic obstructive pulmonary disease) Code(s): J44.9 - CHRONIC OBSTRUCTIVE PULMONARY DISEASE, UNSPECIFIED (9) Cardiomyopathy Code(s): I42.9 - CARDIOMYOPATHY, UNSPECIFIED (10) Diabetes Code(s): E11.9 - TYPE 2 DIABETES MELLITUS WITHOUT COMPLICATIONS Qualifiers: Diabetes mellitus type: type 2 Diabetes mellitus complication status: with kidney complications Diabetes mellitus complication detail: with chronic kidney disease Chronic kidney disease stage: stage 4 (severe) (11) Dyspnea on exertion Code(s): R06.09 - OTHER FORMS OF DYSPNEA (12) Presence of permanent cardiac pacemaker Code(s): Z95.0 - PRESENCE OF CARDIAC PACEMAKER
[2017-02-20] MEDS: MILRINONE 20MG/100ML IVPB - 100 ML IVPB SCH (11:09)
--- NOTE | 2017-02-20 12:41 | PN ---
Progress Note, Physician Chief Complaint: Mr Perez says he is still short of breath, both at rest and on exertion. Coughing has resolved. No cp or n/v. - Current Medication List Current Medications: Active Medications Acetaminophen (Tylenol -) 650 mg PO Q4H PRN PRN Reason: FEVER OR PAIN Last Admin: 02/18/17 11:48 Dose: 650 mg Albuterol Sulfate (Ventolin 0.083% Nebulizer Soln -) 1 amp NEB Q6H PRN PRN Reason: SHORT OF BREATH/WHEEZING Last Admin: 02/20/17 06:03 Dose: 1 amp Allopurinol (Zyloprim -) 100 mg PO DAILY [facility] Last Admin: 02/20/17 09:07 Dose: 100 mg Ascorbic Acid (Vitamin C -) 1,000 mg PO DAILY [facility] Last Admin: 02/20/17 09:06 Dose: 1,000 mg Atorvastatin Calcium (Lipitor -) 40 mg PO HS [facility] Last Admin: 02/19/17 21:37 Dose: 40 mg Budesonide/Formoterol Fumarate (Symbicort 160/4.5mcg -) 1 puff IH BID [facility] Last Admin: 02/20/17 09:07 Dose: 1 puff Bupropion HCl (Wellbutrin -) 75 mg PO DAILY [facility] Last Admin: 02/20/17 09:06 Dose: 75 mg Carvedilol (Coreg -) 6.25 mg PO BID [facility] Last Admin: 02/20/17 09:06 Dose: 6.25 mg Cholecalciferol (Vitamin D3 -) 1,000 unit PO DAILY [facility] Last Admin: 02/20/17 09:06 Dose: 1,000 unit Clopidogrel Bisulfate (Plavix -) 75 mg PO DAILY [facility] Last Admin: 02/20/17 09:06 Dose: 75 mg Docusate Sodium (Colace -) 100 mg PO BID [facility] Last Admin: 02/20/17 09:06 Dose: 100 mg Ferrous Sulfate (Feosol -) 325 mg PO Q48H [facility] Last Admin: 02/19/17 10:53 Dose: 325 mg Furosemide (Lasix Injection -) 100 mg IVPUSH BID@0600,1400 [facility] Milrinone Lactate/Dextrose (Milrinone 20mg/100ml Ivpb -) 100 mls @ 9.716 mls/ hr IVPB TITR [facility]INT[facility] PRN Reason: 0.35 MCG/KG/MIN Last Admin: 02/20/17 11:09 Dose: 9.716 mls/hr Insulin Aspart (Novolog Vial Sliding Scale -) 1 vial SQ ACHS [facility] PRN Reason: Protocol Last Admin: 02/20/17 11:09 Dose: 4 units Multivitamins/Minerals/Vitamin C (Tab-A-Vit -) 1 tab PO DAILY [facility] Last Admin: 02/20/17 09:06 Dose: 1 tab Ondansetron HCl (Zofran Injection) 4 mg IVPB Q6H PRN PRN Reason: NAUSEA Ranitidine HCl (Zantac -) 75 mg PO DAILY [facility] Last Admin: 02/20/17 09:06 Dose: 75 mg Starch (Anusol Suppository -) 1 each RC HS [facility] Last Admin: 02/19/17 21:36 Dose: 1 each Tiotropium [place] (Spiriva -) 1 puff IH DAILY [facility] Last Admin: 02/20/17 09:07 Dose: 1 puff Warfarin Sodium (Coumadin -) 4 mg PO DAILY@1800 [facility] Last Admin: 02/19/17 17:19 Dose: 4 mg - Objective Vital Signs: Vital Signs Temperature 97.6 F 02/20/17 06:00 Pulse Rate 83 02/20/17 11:50 Respiratory Rate 20 02/20/17 06:00 Blood Pressure 122/77 02/20/17 06:00 O2 Sat by Pulse Oximetry (%) 89 L 02/20/17 11:50 Constitutional: Yes: Well Nourished, No Distress, Calm Cardiovascular: Yes: Pulse Irregular. No: Gallop, Murmur, Rub Respiratory: Yes: Regular, On Nasal O2, Rhonchi. No: Rales, Wheezes Gastrointestinal: Yes: Normal Bowel Sounds, Soft. No: Distention, Tenderness Extremities: Yes: Erythema (chronic) Edema: Yes Edema: LLE: 1+, RLE: 1+ Labs: CBC, BMP 02/20/17 05:57 02/20/17 05:57 INR, PTT INR 1.96 (0.82-1.09) H 02/19/17 05:35 Problem List - Problems (1) CHF (congestive heart failure) Code(s): I50.9 - HEART FAILURE, UNSPECIFIED Qualifiers: Congestive heart failure type: systolic Congestive heart failure chronicity: acute on chronic Qualified Code(s): I50.23 - Acute on chronic systolic (congestive) heart failure (2) Acute and chronic respiratory failure ([id number]) Code(s): J96.20 - ACUTE AND CHR RESP FAILURE, UNSP W HYPOXIA OR HYPERCAPNIA Qualifiers: Respiratory failure complication: hypoxia Qualified Code(s): J96.21 - Acute and chronic respiratory failure with hypoxia (3) Acute on chronic renal insufficiency Code(s): N28.9 - DISORDER OF KIDNEY AND URETER, UNSPECIFIED N18.9 - CHRONIC KIDNEY DISEASE, UNSPECIFIED (4) Atrial fibrillation Code(s): I48.91 - UNSPECIFIED ATRIAL FIBRILLATION Qualifiers: Atrial fibrillation type: chronic Qualified Code(s): I48.2 - Chronic atrial fibrillation (5) CAD (coronary artery disease) Code(s): I25.10 - ATHSCL HEART DISEASE OF [place] CORONARY ARTERY W/O ANG PCTRS (6) COPD (chronic obstructive pulmonary disease) Code(s): J44.9 - CHRONIC OBSTRUCTIVE PULMONARY DISEASE, UNSPECIFIED (7) Diabetes Code(s): E11.9 - TYPE 2 DIABETES MELLITUS WITHOUT COMPLICATIONS Qualifiers: Diabetes mellitus type: type 2 Diabetes mellitus complication status: with kidney complications Diabetes mellitus complication detail: with chronic kidney disease Chronic kidney disease stage: stage 4 (severe) Assessment/Plan (1) CHF (congestive heart failure) Assessment/Plan: -end stage CHF, on milrinone -weight increased from yesterday -still with swelling and dyspnea -cardiology following, diuresing with IV lasix -? if dependent on IV diuretics now Code(s): I50.9 - HEART FAILURE, UNSPECIFIED Qualifiers: Congestive heart failure type: systolic Congestive heart failure chronicity: acute on chronic Qualified Code(s): I50.23 - Acute on chronic systolic (congestive) heart failure (2) Acute and chronic respiratory failure ([id number]) Assessment/Plan: -secondary to CHF exacerbation -continue diuresis -on supplemental oxygen Code(s): J96.20 - ACUTE AND CHR RESP FAILURE, UNSP W HYPOXIA OR HYPERCAPNIA Qualifiers: Respiratory failure complication: hypoxia Qualified Code(s): J96.21 - Acute and chronic respiratory failure with hypoxia (3) Acute on chronic renal insufficiency Assessment/Plan: -cardiorenal -at baseline with diuresis Code(s): N28.9 - DISORDER OF KIDNEY AND URETER, UNSPECIFIED N18.9 - CHRONIC KIDNEY DISEASE, UNSPECIFIED (4) Atrial fibrillation Assessment/Plan: -rate controlled -check INR today -continue coumadin Code(s): I48.91 - UNSPECIFIED ATRIAL FIBRILLATION Qualifiers: Atrial fibrillation type: chronic Qualified Code(s): I48.2 - Chronic atrial fibrillation (5) CAD (coronary artery disease) Assessment/Plan: -quiescent -cardiology following -continue home regimen Code(s): I25.10 - ATHSCL HEART DISEASE OF [place] CORONARY ARTERY W/O ANG PCTRS (6) COPD (chronic obstructive pulmonary disease) Assessment/Plan: -case d/w Dr Valle -dyspnea secondary to CHF -continue current management Code(s): J44.9 - CHRONIC OBSTRUCTIVE PULMONARY DISEASE, UNSPECIFIED (7) Diabetes Assessment/Plan: -diabetic diet -continue SSI Code(s): E11.9 - TYPE 2 DIABETES MELLITUS WITHOUT COMPLICATIONS Qualifiers: Diabetes mellitus type: type 2 Diabetes mellitus complication status: with kidney complications Diabetes mellitus complication detail: with chronic kidney disease Chronic kidney disease stage: stage 4 (severe)
[2017-02-20 14:09] LABS: INR 2.1 (0.82-1.09); PROTHROMBIN TIME (PATIENT) 23.5 SEC (9.98-11.88)
[2017-02-20] MEDS: FUROSEMIDE 100 MG/10 ML INJECTABLE VIAL IVPUSH SCH (14:45)
[2017-02-20] MEDS: WARFARIN NA 2 MG TABLET (UD) PO SCH (18:18)
[2017-02-20] MEDS: PHENYLEPHRINE 0.25%/STARCH 1 EACH SUPP.RECT RC SCH (21:23)
[2017-02-20] MEDS: ATORVASTATIN CA 40 MG TABLET (FP) PO SCH (21:23)
[2017-02-21] MEDS: MILRINONE 20MG/100ML IVPB - 100 ML IVPB SCH ×3 (02:35→12:54)
[2017-02-21] MEDS: INSULIN SLIDING SCALE (NOVOLOG) 1 VIAL SQ SCH ×4 (06:10→22:12)
[2017-02-21] MEDS: ALBUTEROL SO4 0.083% IH SOL 2.5 MG/3 ML VIAL.NEB. NEB PRN ×2 (06:28→19:30)
[2017-02-21] MEDS: FUROSEMIDE 100 MG/10 ML INJECTABLE VIAL IVPUSH SCH ×3 (07:07→14:53)
[2017-02-21 07:25] LABS: BASOPHIL 0.4 % (0-2.0); EOSINOPHIL 2.3 % (0-4.5); MCH 26.6 pg (25.7-33.7); MEAN CELL VOLUME 83.2 fl (80-96); MEAN PLT VOLUME 9.6 fl (7.5-11.1); NEUTROPHILS 73.4 % (42.8-82.8); PLATELET COUNT 183 K/MM3 (134-434); RDW 18.5 % (11.9-15.9); WHITE BLOOD COUNT 7.1 K/mm3 (4.0-10.0)
[2017-02-21 07:42] LABS: INR 2.18 (0.82-1.09); PROTHROMBIN TIME (PATIENT) 24.4 SEC (9.98-11.88)
[2017-02-21 08:15] LABS: ANION GAP 7 (8-16); CALCIUM 8.8 mg/dL (8.5-10.1); CO2 34 mmol/L (21-32); CREATININE 1.9 mg/dL (0.7-1.3); GLUCOSE,RANDOM 167 mg/dL (74-106); MAGNESIUM 2.6 mg/dL (1.8-2.4); PHOSPHOROUS 3.7 mg/dL (2.5-4.9)
--- NOTE | 2017-02-21 09:40 | PN ---
Progress Note (short form) - Note Progress Note: Chief Complaint: sob/cough History of Present Illness: sob and cough persist no signif leg swelling no cp, palpit ex cigs Current Medications Acetaminophen (Tylenol -) 650 mg PO Q4H PRN PRN Reason: FEVER OR PAIN Last Admin: 02/18/17 11:48 Dose: 650 mg Albuterol Sulfate (Ventolin 0.083% Nebulizer Soln -) 1 amp NEB Q6H PRN PRN Reason: SHORT OF BREATH/WHEEZING Last Admin: 02/21/17 06:28 Dose: 1 amp Allopurinol (Zyloprim -) 100 mg PO DAILY [facility] Last Admin: 02/20/17 09:07 Dose: 100 mg Ascorbic Acid (Vitamin C -) 1,000 mg PO DAILY [facility] Last Admin: 02/20/17 09:06 Dose: 1,000 mg Atorvastatin Calcium (Lipitor -) 40 mg PO HS [facility] Last Admin: 02/20/17 21:23 Dose: 40 mg Budesonide/Formoterol Fumarate (Symbicort 160/4.5mcg -) 1 puff IH BID [facility] Last Admin: 02/20/17 21:26 Dose: 1 puff Bupropion HCl (Wellbutrin -) 75 mg PO DAILY [facility] Last Admin: 02/20/17 09:06 Dose: 75 mg Carvedilol (Coreg -) 6.25 mg PO BID [facility] Last Admin: 02/20/17 21:23 Dose: 6.25 mg Cholecalciferol (Vitamin D3 -) 1,000 unit PO DAILY [facility] Last Admin: 02/20/17 09:06 Dose: 1,000 unit Clopidogrel Bisulfate (Plavix -) 75 mg PO DAILY [facility] Last Admin: 02/20/17 09:06 Dose: 75 mg Docusate Sodium (Colace -) 100 mg PO BID [facility] Last Admin: 02/20/17 21:23 Dose: 100 mg Ferrous Sulfate (Feosol -) 325 mg PO Q48H [facility] Last Admin: 02/19/17 10:53 Dose: 325 mg Furosemide (Lasix Injection -) 100 mg IVPUSH BID@0600,1400 [facility] Last Admin: 02/21/17 07:07 Dose: Not Given Milrinone Lactate/Dextrose (Milrinone 20mg/100ml Ivpb -) 100 mls @ 9.716 mls/ hr IVPB TITR [facility] PRN Reason: 0.35 MCG/KG/MIN Last Admin: 02/21/17 02:35 Dose: 9.716 mls/hr Insulin Aspart (Novolog Vial Sliding Scale -) 1 vial SQ ACHS [facility] PRN Reason: Protocol Last Admin: 02/21/17 06:10 Dose: 2 units Multivitamins/Minerals/Vitamin C (Tab-A-Vit -) 1 tab PO DAILY [facility] Last Admin: 02/20/17 09:06 Dose: 1 tab Ondansetron HCl (Zofran Injection) 4 mg IVPB Q6H PRN PRN Reason: NAUSEA Ranitidine HCl (Zantac -) 75 mg PO DAILY [facility] Last Admin: 02/20/17 09:06 Dose: 75 mg Starch (Anusol Suppository -) 1 each RC HS [facility] Last Admin: 02/20/17 21:23 Dose: 1 each Tiotropium [place] (Spiriva -) 1 puff IH DAILY [facility] Last Admin: 02/20/17 09:07 Dose: 1 puff Warfarin Sodium (Coumadin -) 4 mg PO DAILY@1800 [facility] Last Admin: 02/20/17 18:18 Dose: 4 mg Vital Signs - 24 hr 02/20/17 02/20/17 02/20/17 10:00 11:50 14:45 Temperature 98.0 F Pulse Rate 77 83 83 Respiratory 18 22 Rate Blood Pressure 115/75 114/68 O2 Sat by Pulse 89 L Oximetry (%) 02/20/17 02/20/17 02/20/17 18:00 20:48 20:51 Temperature 97.5 F L 97.8 F Pulse Rate 74 75 Respiratory 19 18 Rate Blood Pressure 123/63 122/74 O2 Sat by Pulse 94 L Oximetry (%) 02/21/17 02/21/17 02/21/17 02:00 06:00 08:00 Temperature 97.7 F 97.4 F L 98.7 F Pulse Rate 75 72 78 Respiratory 24 22 22 Rate Blood Pressure 117/66 118/82 113/67 O2 Sat by Pulse Oximetry (%) Intake & Output 02/19/17 02/20/17 02/21/17 02/22/17 07:59 07:59 07:59 07:59 Intake Total 1036 998.7 167 Output Total 400 Balance 1036 598.7 167 Weight 210 lb 6 oz 212 lb 2 oz 211 lb 6.4 oz Constitutional: Yes: No Distress, Calm Eyes: No: Sclera Icterus HENT: No: Nasal Congestion Cardiovascular: Yes: Regular Rate and Rhythm, JVD (EJ massively distended at 90 degr (no IJ seen)), S1, S2, Other (PMI non diplaced). No: Gallop, Murmur Respiratory: Yes: bibasilar rales. No: Accessory Muscle Use, Rales, Wheezes Gastrointestinal: Yes: Normal Bowel Sounds, Soft. No: Tenderness Musculoskeletal: Yes: Other (No kyphosis) Extremities: No: Cold Edema: trace -1+ Integumentary: No: Jaundice Neurological: Yes: Alert, Oriented (x3) Psychiatric: No: Agitated Labs: CBC, BMP 02/21/17 05:30 02/21/17 05:30 Laboratory Tests 02/21/17 02/21/17 05:30 05:30 INR 2.18 H Magnesium 2.6 H - ....Imaging EKG: Other (tele: AF, V-P; rare nsvt) Assessment/Plan ecg 02/16/17: vp emerging media echo 05/2016: sev lve, global hk, sev dec lvef, mild rve, nl rv fcn, estefnaia, mild- mod mr, mv ring, tv ring, mild tr, mild pr, mild phtn, ivc mild dil cxr: chf a/p: 76 year old man with PMH of IDDM, COPD (O2 dependant) HTN, HLD, Afib (on coumadin), CAD s/p CABG 2012, end stage CHF with ICD placement (on milrinone pump), PVD, BPH here with sob. sob, acute systolic CHF, end stage systolic heart failure s/p ICD, on home milrinone infusion: - here with sob/jose - was well diuresed at home to wt 202-204 with creat 2.1 and Na 151--torsemide 80 bid gradually downtitrated back to 40 bid - saw me last week with sob at baseline, but ongoing phlegmy cough--likely sec to advanced copd and NOT chf - developed acute incr sob in afternoon, after left my office for last appt, thinks wt was 207 that day - cxr here worsened, with perihilar edema pattern and RLL infiltrates likely chf (no other clinical signs of PNA) - initial wt 204 standing, up to 207 on HD 2 - suspect diet/fluid noncompliance may be trigger of chf here - cont milrinone at patient's home maintenance dose (on chronic infusion destination therapy)--0.35 mcg/kg/min. - cont home coreg. (no ALESSANDRA due to low bp's and labile creatinines; no Entresto for same reason) - recent office icd check with stable function - 02/17 unclear if sxs from chf or some URI/copd (productive cough). Will give trial of iv lasix 80 x1 today and monitor sxs, cr trend tomorrow to see if improving. - 02/18. Symptoms improving, creatinine improved after lasix 80 mg IV x 1 yesterday. Will continue daily dosing. - 02/19 Ongoing weight gain, will increase lasix to bid dosing--though pt refused 2nd dose due to late in day timing - note: pt gains wt rapidly at home when non-compliant with 1.5L daily fluid restriction ( supervises) and same here when fluid restriction not ordered/ implemented - 02/20: fluid restriction ordered, importance d/w'd RN (to inform business office assistant); wt up to 212 (target wt is 207 or less). bid lasix today. responds to metolazone reliably at home when wt rises so low threshold to give this if wt rises further tomorrow (hopefully he is not becoming IV diuretic dependent) - suspect loss of muscle mass over time, with new dry wt closer to 202-204 - 02/21 Significantly bothered by frequent urination. declines damian. Still symptomatic, minimal weight loss this morning. will give extra dose of metolazone this afternoon with pm lasix. Multiple recent admits, poor prognosis. afib - currently rate controlled on coreg - cont coumadin per INR VT: - 19 beat run NSVT on tele earlier in admit - has ICD - on max tolerated coreg dose - K/Mag optimized--routine lyte mgmt PVD - con't AC, statin. CAD s/p CABG - No anginal symptoms, no signs acs. Con't home ac, plavix, atorvastatin, coreg HTN: controlled on coreg HLD: con't statin. chu/CKD: - suspect cardiorenal syndrome, with renal fxn improving due to IV diuresis - renal fxn presently at baseline copd - per pulm/pmd
[2017-02-21] MEDS: ALLOPURINOL 100 MG TABLET (FP) PO SCH (10:04)
[2017-02-21] MEDS: CHOLECALCIFEROL (VITAMIN D3) 1,000 UNIT TABLET (FP) PO SCH (10:04)
[2017-02-21] MEDS: RANITIDINE HCL 150 MG TABLET (FP) PO SCH (10:04)
[2017-02-21] MEDS: CARVEDILOL 6.25 MG TABLET (FP) PO SCH ×2 (10:05→21:51)
[2017-02-21] MEDS: ASCORBIC ACID 500 MG TABLET (FP) PO SCH (10:05)
[2017-02-21] MEDS: DOCUSATE SODIUM 100 MG CAPSULE (FP) PO SCH ×2 (10:05→21:51)
[2017-02-21] MEDS: TIOTROPIUM BROMIDE 18 MCG/INH (DEVICE W/ 5 CAPSULES) IH SCH (10:05)
[2017-02-21] MEDS: buPROPion HCL 75 MG TABLET PO SCH (10:05)
[2017-02-21] MEDS: MULTIVITAMINS (DAILY MVI) TABLET (FP) PO SCH (10:05)
[2017-02-21] MEDS: CLOPIDOGREL BISULFATE 75 MG TABLET (FP) PO SCH (10:05)
[2017-02-21] MEDS: BUDESONIDE/FORMETEROL FUMARATE 160/4.5 mcg INHALER IH SCH ×2 (10:05→22:13)
[2017-02-21] MEDS: FERROUS SO4 325 MG TABLET (FP) PO SCH (11:36)
[2017-02-21] MEDS ORDERED: MILRINONE 20MG/100ML IVPB - 100 ML IVPB ONE (12:45)
--- NOTE | 2017-02-21 13:12 | PN ---
Progress Note, Physician Chief Complaint: Mr Perez says his breathing is unchanged, still short. No cp or n/v. - Current Medication List Current Medications: Active Medications Acetaminophen (Tylenol -) 650 mg PO Q4H PRN PRN Reason: FEVER OR PAIN Last Admin: 02/18/17 11:48 Dose: 650 mg Albuterol Sulfate (Ventolin 0.083% Nebulizer Soln -) 1 amp NEB Q6H PRN PRN Reason: SHORT OF BREATH/WHEEZING Last Admin: 02/21/17 06:28 Dose: 1 amp Allopurinol (Zyloprim -) 100 mg PO DAILY [facility] Last Admin: 02/21/17 10:04 Dose: 100 mg Ascorbic Acid (Vitamin C -) 1,000 mg PO DAILY [facility] Last Admin: 02/21/17 10:05 Dose: 1,000 mg Atorvastatin Calcium (Lipitor -) 40 mg PO HS [facility] Last Admin: 02/20/17 21:23 Dose: 40 mg Budesonide/Formoterol Fumarate (Symbicort 160/4.5mcg -) 1 puff IH BID [facility] Last Admin: 02/21/17 10:05 Dose: 1 puff Bupropion HCl (Wellbutrin -) 75 mg PO DAILY [facility] Last Admin: 02/21/17 10:05 Dose: 75 mg Carvedilol (Coreg -) 6.25 mg PO BID [facility] Last Admin: 02/21/17 10:05 Dose: 6.25 mg Cholecalciferol (Vitamin D3 -) 1,000 unit PO DAILY [facility] Last Admin: 02/21/17 10:04 Dose: 1,000 unit Clopidogrel Bisulfate (Plavix -) 75 mg PO DAILY [facility] Last Admin: 02/21/17 10:05 Dose: 75 mg Docusate Sodium (Colace -) 100 mg PO BID [facility] Last Admin: 02/21/17 10:05 Dose: 100 mg Ferrous Sulfate (Feosol -) 325 mg PO Q48H [facility] Last Admin: 02/21/17 11:36 Dose: 325 mg Furosemide (Lasix Injection -) 100 mg IVPUSH BID@0600,1400 [facility] Last Admin: 02/21/17 08:15 Dose: 100 mg Milrinone Lactate/Dextrose (Milrinone 20mg/100ml Ivpb -) 100 mls @ 9.716 mls/ hr IVPB TITR [facility] PRN Reason: 0.35 MCG/KG/MIN Last Admin: 02/21/17 02:35 Dose: 9.716 mls/hr Insulin Aspart (Novolog Vial Sliding Scale -) 1 vial SQ ACHS [facility] PRN Reason: Protocol Last Admin: 02/21/17 11:39 Dose: 4 units Metolazone (Zaroxolyn -) 5 mg PO ONCE ONE Stop: 02/21/17 13:51 Multivitamins/Minerals/Vitamin C (Tab-A-Vit -) 1 tab PO DAILY [facility] Last Admin: 02/21/17 10:05 Dose: 1 tab Ondansetron HCl (Zofran Injection) 4 mg IVPB Q6H PRN PRN Reason: NAUSEA Ranitidine HCl (Zantac -) 75 mg PO DAILY [facility] Last Admin: 02/21/17 10:04 Dose: 75 mg Starch (Anusol Suppository -) 1 each RC HS [facility] Last Admin: 02/20/17 21:23 Dose: 1 each Tiotropium [place] (Spiriva -) 1 puff IH DAILY [facility] Last Admin: 02/21/17 10:05 Dose: 1 puff Warfarin Sodium (Coumadin -) 4 mg PO DAILY@1800 [facility] Last Admin: 02/20/17 18:18 Dose: 4 mg - Objective Vital Signs: Vital Signs Temperature 98.7 F 02/21/17 08:00 Pulse Rate 82 02/21/17 10:30 Respiratory Rate 18 02/21/17 08:00 Blood Pressure 113/67 02/21/17 08:00 O2 Sat by Pulse Oximetry (%) 97 02/21/17 10:30 Constitutional: Yes: Well Nourished, No Distress, Calm Cardiovascular: Yes: Pulse Irregular. No: Tachycardia, Gallop, Murmur, Rub Respiratory: Yes: Regular, On Nasal O2, Rhonchi. No: Rales, Wheezes Gastrointestinal: Yes: Normal Bowel Sounds, Soft. No: Distention, Tenderness Extremities: Yes: WNL Edema: Yes Edema: LLE: 1+, RLE: 1+ Labs: CBC, BMP 02/21/17 05:30 02/21/17 05:30 INR, PTT INR 2.18 (0.82-1.09) H 02/21/17 05:30 Problem List - Problems (1) CHF (congestive heart failure) Code(s): I50.9 - HEART FAILURE, UNSPECIFIED Qualifiers: Congestive heart failure type: systolic Congestive heart failure chronicity: acute on chronic Qualified Code(s): I50.23 - Acute on chronic systolic (congestive) heart failure (2) Acute and chronic respiratory failure ([id number]) Code(s): J96.20 - ACUTE AND CHR RESP FAILURE, UNSP W HYPOXIA OR HYPERCAPNIA Qualifiers: Respiratory failure complication: hypoxia Qualified Code(s): J96.21 - Acute and chronic respiratory failure with hypoxia (3) Acute on chronic renal insufficiency Code(s): N28.9 - DISORDER OF KIDNEY AND URETER, UNSPECIFIED N18.9 - CHRONIC KIDNEY DISEASE, UNSPECIFIED (4) Atrial fibrillation Code(s): I48.91 - UNSPECIFIED ATRIAL FIBRILLATION Qualifiers: Atrial fibrillation type: chronic Qualified Code(s): I48.2 - Chronic atrial fibrillation (5) CAD (coronary artery disease) Code(s): I25.10 - ATHSCL HEART DISEASE OF [place] CORONARY ARTERY W/O ANG PCTRS (6) COPD (chronic obstructive pulmonary disease) Code(s): J44.9 - CHRONIC OBSTRUCTIVE PULMONARY DISEASE, UNSPECIFIED (7) Diabetes Code(s): E11.9 - TYPE 2 DIABETES MELLITUS WITHOUT COMPLICATIONS Qualifiers: Diabetes mellitus type: type 2 Diabetes mellitus complication status: with kidney complications Diabetes mellitus complication detail: with chronic kidney disease Chronic kidney disease stage: stage 4 (severe) Assessment/Plan (1) CHF (congestive heart failure) Assessment/Plan: -end stage CHF, on milrinone -weight decreased by 1 pound today -still with swelling and dyspnea -cardiology following, diuresing with IV lasix -? if dependent on IV diuretics now Code(s): I50.9 - HEART FAILURE, UNSPECIFIED Qualifiers: Congestive heart failure type: systolic Congestive heart failure chronicity: acute on chronic Qualified Code(s): I50.23 - Acute on chronic systolic (congestive) heart failure (2) Acute and chronic respiratory failure ([id number]) Assessment/Plan: -secondary to CHF exacerbation -continue diuresis -on supplemental oxygen Code(s): J96.20 - ACUTE AND CHR RESP FAILURE, UNSP W HYPOXIA OR HYPERCAPNIA Qualifiers: Respiratory failure complication: hypoxia Qualified Code(s): J96.21 - Acute and chronic respiratory failure with hypoxia (3) Acute on chronic renal insufficiency Assessment/Plan: -cardiorenal -at baseline with diuresis Code(s): N28.9 - DISORDER OF KIDNEY AND URETER, UNSPECIFIED N18.9 - CHRONIC KIDNEY DISEASE, UNSPECIFIED (4) Atrial fibrillation Assessment/Plan: -rate controlled -continue coumadin, therapeutic Code(s): I48.91 - UNSPECIFIED ATRIAL FIBRILLATION Qualifiers: Atrial fibrillation type: chronic Qualified Code(s): I48.2 - Chronic atrial fibrillation (5) CAD (coronary artery disease) Assessment/Plan: -quiescent -cardiology following -continue home regimen Code(s): I25.10 - ATHSCL HEART DISEASE OF [place] CORONARY ARTERY W/O ANG PCTRS (6) COPD (chronic obstructive pulmonary disease) Assessment/Plan: -case d/w Dr Valle -dyspnea secondary to CHF -continue current management Code(s): J44.9 - CHRONIC OBSTRUCTIVE PULMONARY DISEASE, UNSPECIFIED (7) Diabetes Assessment/Plan: -diabetic diet -continue SSI Code(s): E11.9 - TYPE 2 DIABETES MELLITUS WITHOUT COMPLICATIONS Qualifiers: Diabetes mellitus type: type 2 Diabetes mellitus complication status: with kidney complications Diabetes mellitus complication detail: with chronic kidney disease Chronic kidney disease stage: stage 4 (severe)
[2017-02-21] MEDS ORDERED: METOLAZONE 5 MG TABLET PO ONE (13:50)
--- NOTE | 2017-02-21 14:27 | PN ---
Progress Note (short form) - Note Progress Note: PULMONARY Breathing about the same. No chest pain or palpitations. On milrinone and lasix. Last Vital Signs Temp Pulse Resp BP Pulse Ox 98.7 F 82 18 113/67 97 02/21/17 08:00 02/21/17 10:30 02/21/17 08:00 02/21/17 08:00 02/21/17 10:30 Intake & Output 02/18/17 02/19/17 02/20/17 02/21/17 23:59 23:59 23:59 23:59 Intake Total 1036 849.9 318.8 357 Output Total 400 150 Balance 1036 849.9 -81.2 207 Weight 207 lb 6 oz 210 lb 6 oz 212 lb 2 oz 211 lb 6.4 oz Gen: NAD at rest Heart: RRR Lung: basilar rales Abd: soft, nontender Ext: + edema CBC, BMP 02/21/17 05:30 02/21/17 05:30 Active Medications Acetaminophen (Tylenol -) 650 mg PO Q4H PRN PRN Reason: FEVER OR PAIN Last Admin: 02/18/17 11:48 Dose: 650 mg Albuterol Sulfate (Ventolin 0.083% Nebulizer Soln -) 1 amp NEB Q6H PRN PRN Reason: SHORT OF BREATH/WHEEZING Last Admin: 02/21/17 06:28 Dose: 1 amp Allopurinol (Zyloprim -) 100 mg PO DAILY [facility] Last Admin: 02/21/17 10:04 Dose: 100 mg Ascorbic Acid (Vitamin C -) 1,000 mg PO DAILY [facility] Last Admin: 02/21/17 10:05 Dose: 1,000 mg Atorvastatin Calcium (Lipitor -) 40 mg PO HS [facility] Last Admin: 02/20/17 21:23 Dose: 40 mg Budesonide/Formoterol Fumarate (Symbicort 160/4.5mcg -) 1 puff IH BID [facility] Last Admin: 02/21/17 10:05 Dose: 1 puff Bupropion HCl (Wellbutrin -) 75 mg PO DAILY [facility] Last Admin: 02/21/17 10:05 Dose: 75 mg Carvedilol (Coreg -) 6.25 mg PO BID [facility] Last Admin: 02/21/17 10:05 Dose: 6.25 mg Cholecalciferol (Vitamin D3 -) 1,000 unit PO DAILY [facility] Last Admin: 02/21/17 10:04 Dose: 1,000 unit Clopidogrel Bisulfate (Plavix -) 75 mg PO DAILY [facility] Last Admin: 02/21/17 10:05 Dose: 75 mg Docusate Sodium (Colace -) 100 mg PO BID [facility] Last Admin: 02/21/17 10:05 Dose: 100 mg Ferrous Sulfate (Feosol -) 325 mg PO Q48H [facility] Last Admin: 02/21/17 11:36 Dose: 325 mg Furosemide (Lasix Injection -) 100 mg IVPUSH BID@0600,1400 [facility] Last Admin: 02/21/17 08:15 Dose: 100 mg Milrinone Lactate/Dextrose (Milrinone 20mg/100ml Ivpb -) 100 mls @ 9.716 mls/ hr IVPB TITR [facility] PRN Reason: 0.35 MCG/KG/MIN Last Admin: 02/21/17 12:50 Dose: 9.716 mls/hr Insulin Aspart (Novolog Vial Sliding Scale -) 1 vial SQ ACHS [facility] PRN Reason: Protocol Last Admin: 02/21/17 11:39 Dose: 4 units Multivitamins/Minerals/Vitamin C (Tab-A-Vit -) 1 tab PO DAILY [facility] Last Admin: 02/21/17 10:05 Dose: 1 tab Ondansetron HCl (Zofran Injection) 4 mg IVPB Q6H PRN PRN Reason: NAUSEA Ranitidine HCl (Zantac -) 75 mg PO DAILY [facility] Last Admin: 02/21/17 10:04 Dose: 75 mg Starch (Anusol Suppository -) 1 each RC HS [facility] Last Admin: 02/20/17 21:23 Dose: 1 each Tiotropium [place] (Spiriva -) 1 puff IH DAILY [facility] Last Admin: 02/21/17 10:05 Dose: 1 puff Warfarin Sodium (Coumadin -) 4 mg PO DAILY@1800 [facility] Last Admin: 02/20/17 18:18 Dose: 4 mg A/P Acute on Chronic Systolic Heart Failure CAD s/p CABG COPD Chronic Hypoxic Respiratory Failure Atrial Fibrillation Acute on Chronic Renal Failure PAD BPH - continue lasix, milrinone - monitor urine output, creatinine - daily weights, I/Os - O2 to keep SpO2 >90% - rate controlled - continue anticoagulation
[2017-02-21] MEDS: WARFARIN NA 2 MG TABLET (UD) PO SCH (17:40)
[2017-02-21] MEDS: ATORVASTATIN CA 40 MG TABLET (FP) PO SCH (21:51)
[2017-02-21] MEDS: PHENYLEPHRINE 0.25%/STARCH 1 EACH SUPP.RECT RC SCH (23:24)
[2017-02-22] MEDS ORDERED: PT OWN MED DRAWER 7, Y5N ONE ×2 (00:18→22:20)
[2017-02-22] MEDS: FUROSEMIDE 100 MG/10 ML INJECTABLE VIAL IVPUSH SCH ×3 (06:17→16:26)
[2017-02-22] MEDS: INSULIN SLIDING SCALE (NOVOLOG) 1 VIAL SQ SCH ×4 (06:18→22:25)
[2017-02-22] MEDS: ALBUTEROL SO4 0.083% IH SOL 2.5 MG/3 ML VIAL.NEB. NEB PRN ×3 (06:35→22:00)
[2017-02-22 08:09] LABS: BASOPHIL 0.7 % (0-2.0); EOSINOPHIL 2.1 % (0-4.5); MCH 26.3 pg (25.7-33.7); MCHC 31.8 g/dl (32.0-35.9); MEAN CELL VOLUME 82.8 fl (80-96); MEAN PLT VOLUME 8.7 fl (7.5-11.1); NEUTROPHILS 70.9 % (42.8-82.8); PLATELET COUNT 161 K/MM3 (134-434); RDW 18.3 % (11.9-15.9); WHITE BLOOD COUNT 6.7 K/mm3 (4.0-10.0)
[2017-02-22 08:20] LABS: INR 2.65 (0.82-1.09); PROTHROMBIN TIME (PATIENT) 29.7 SEC (9.98-11.88)
[2017-02-22 09:08] LABS: ANION GAP 8 (8-16); CALCIUM 8.9 mg/dL (8.5-10.1); CO2 31 mmol/L (21-32); CREATININE 1.7 mg/dL (0.7-1.3); GLUCOSE,RANDOM 141 mg/dL (74-106); MAGNESIUM 2.5 mg/dL (1.8-2.4); PHOSPHOROUS 3.4 mg/dL (2.5-4.9)
--- NOTE | 2017-02-22 10:59 | PN ---
Progress Note, Physician Chief Complaint: Mr Perez says he feels unchanged. Still with trouble breathing that is not worsened or improved. No cp or n/v. - Current Medication List Current Medications: Active Medications Acetaminophen (Tylenol -) 650 mg PO Q4H PRN PRN Reason: FEVER OR PAIN Last Admin: 02/18/17 11:48 Dose: 650 mg Albuterol Sulfate (Ventolin 0.083% Nebulizer Soln -) 1 amp NEB Q6H PRN PRN Reason: SHORT OF BREATH/WHEEZING Last Admin: 02/22/17 06:35 Dose: 1 amp Allopurinol (Zyloprim -) 100 mg PO DAILY [facility] Last Admin: 02/21/17 10:04 Dose: 100 mg Ascorbic Acid (Vitamin C -) 1,000 mg PO DAILY [facility] Last Admin: 02/21/17 10:05 Dose: 1,000 mg Atorvastatin Calcium (Lipitor -) 40 mg PO HS [facility] Last Admin: 02/21/17 21:51 Dose: 40 mg Budesonide/Formoterol Fumarate (Symbicort 160/4.5mcg -) 1 puff IH BID [facility] Last Admin: 02/21/17 22:13 Dose: 1 puff Bupropion HCl (Wellbutrin -) 75 mg PO DAILY [facility] Last Admin: 02/21/17 10:05 Dose: 75 mg Carvedilol (Coreg -) 6.25 mg PO BID [facility] Last Admin: 02/21/17 21:51 Dose: 6.25 mg Cholecalciferol (Vitamin D3 -) 1,000 unit PO DAILY [facility] Last Admin: 02/21/17 10:04 Dose: 1,000 unit Clopidogrel Bisulfate (Plavix -) 75 mg PO DAILY [facility] Last Admin: 02/21/17 10:05 Dose: 75 mg Docusate Sodium (Colace -) 100 mg PO BID [facility] Last Admin: 02/21/17 21:51 Dose: 100 mg Ferrous Sulfate (Feosol -) 325 mg PO Q48H [facility] Last Admin: 02/21/17 11:36 Dose: 325 mg Furosemide (Lasix Injection -) 100 mg IVPUSH BID@0600,1400 [facility] Last Admin: 02/22/17 06:17 Dose: Not Given Milrinone Lactate/Dextrose (Milrinone 20mg/100ml Ivpb -) 100 mls @ 9.716 mls/ hr IVPB TITR [facility] PRN Reason: 0.35 MCG/KG/MIN Last Admin: 02/21/17 12:50 Dose: 9.716 mls/hr Insulin Aspart (Novolog Vial Sliding Scale -) 1 vial SQ ACHS [facility] PRN Reason: Protocol Last Admin: 02/22/17 06:18 Dose: 2 units Multivitamins/Minerals/Vitamin C (Tab-A-Vit -) 1 tab PO DAILY [facility] Last Admin: 02/21/17 10:05 Dose: 1 tab Ondansetron HCl (Zofran Injection) 4 mg IVPB Q6H PRN PRN Reason: NAUSEA Ranitidine HCl (Zantac -) 75 mg PO DAILY [facility] Last Admin: 02/21/17 10:04 Dose: 75 mg Starch (Anusol Suppository -) 1 each RC HS [facility] Last Admin: 02/21/17 23:24 Dose: 1 each Tiotropium [place] (Spiriva -) 1 puff IH DAILY [facility] Last Admin: 02/21/17 10:05 Dose: 1 puff Warfarin Sodium (Coumadin -) 4 mg PO DAILY@1800 [facility] Last Admin: 02/21/17 17:40 Dose: 4 mg - Objective Vital Signs: Vital Signs Temperature 97.6 F 02/22/17 05:00 Pulse Rate 78 02/22/17 05:00 Respiratory Rate 22 02/22/17 05:00 Blood Pressure 122/67 02/22/17 05:00 O2 Sat by Pulse Oximetry (%) 97 02/21/17 21:00 Constitutional: Yes: No Distress, Calm Cardiovascular: Yes: Pulse Irregular. No: Gallop, Murmur, Rub Respiratory: Yes: Regular, On Nasal O2, Rhonchi. No: Rales, Wheezes Gastrointestinal: Yes: Normal Bowel Sounds, Soft. No: Distention, Tenderness Extremities: Yes: WNL Edema: Yes Edema: LLE: 1+, RLE: 1+ ( ) Labs: CBC, BMP 02/22/17 06:02 02/22/17 06:02 INR, PTT INR 2.65 (0.82-1.09) H 02/22/17 06:02 Problem List - Problems (1) CHF (congestive heart failure) Code(s): I50.9 - HEART FAILURE, UNSPECIFIED Qualifiers: Congestive heart failure type: systolic Congestive heart failure chronicity: acute on chronic Qualified Code(s): I50.23 - Acute on chronic systolic (congestive) heart failure (2) Acute and chronic respiratory failure ([id number]) Code(s): J96.20 - ACUTE AND CHR RESP FAILURE, UNSP W HYPOXIA OR HYPERCAPNIA Qualifiers: Respiratory failure complication: hypoxia Qualified Code(s): J96.21 - Acute and chronic respiratory failure with hypoxia (3) Acute on chronic renal insufficiency Code(s): N28.9 - DISORDER OF KIDNEY AND URETER, UNSPECIFIED N18.9 - CHRONIC KIDNEY DISEASE, UNSPECIFIED (4) Atrial fibrillation Code(s): I48.91 - UNSPECIFIED ATRIAL FIBRILLATION Qualifiers: Atrial fibrillation type: chronic Qualified Code(s): I48.2 - Chronic atrial fibrillation (5) CAD (coronary artery disease) Code(s): I25.10 - ATHSCL HEART DISEASE OF [place] CORONARY ARTERY W/O ANG PCTRS (6) COPD (chronic obstructive pulmonary disease) Code(s): J44.9 - CHRONIC OBSTRUCTIVE PULMONARY DISEASE, UNSPECIFIED (7) Diabetes Code(s): E11.9 - TYPE 2 DIABETES MELLITUS WITHOUT COMPLICATIONS Qualifiers: Diabetes mellitus type: type 2 Diabetes mellitus complication status: with kidney complications Diabetes mellitus complication detail: with chronic kidney disease Chronic kidney disease stage: stage 4 (severe) Assessment/Plan (1) CHF (congestive heart failure) Assessment/Plan: -end stage CHF, on milrinone -cardiology following -weight decreased by 2lbs from max here, 212 -> 210 -continue lasix 100mg IV bid -? if entering stage where hospice/comfort measures are appropriate Code(s): I50.9 - HEART FAILURE, UNSPECIFIED Qualifiers: Congestive heart failure type: systolic Congestive heart failure chronicity: acute on chronic Qualified Code(s): I50.23 - Acute on chronic systolic (congestive) heart failure (2) Acute and chronic respiratory failure ([id number]) Assessment/Plan: -secondary to CHF exacerbation -continue diuresis -on supplemental oxygen Code(s): J96.20 - ACUTE AND CHR RESP FAILURE, UNSP W HYPOXIA OR HYPERCAPNIA Qualifiers: Respiratory failure complication: hypoxia Qualified Code(s): J96.21 - Acute and chronic respiratory failure with hypoxia (3) Acute on chronic renal insufficiency Assessment/Plan: -cardiorenal -at baseline with diuresis Code(s): N28.9 - DISORDER OF KIDNEY AND URETER, UNSPECIFIED N18.9 - CHRONIC KIDNEY DISEASE, UNSPECIFIED (4) Atrial fibrillation Assessment/Plan: -rate controlled -continue coumadin, therapeutic -daily INR checks Code(s): I48.91 - UNSPECIFIED ATRIAL FIBRILLATION Qualifiers: Atrial fibrillation type: chronic Qualified Code(s): I48.2 - Chronic atrial fibrillation (5) CAD (coronary artery disease) Assessment/Plan: -quiescent -cardiology following -continue home regimen Code(s): I25.10 - ATHSCL HEART DISEASE OF [place] CORONARY ARTERY W/O ANG PCTRS (6) COPD (chronic obstructive pulmonary disease) Assessment/Plan: -continue current management -pulmonary following -chronic respiratory failure secondary to CHF Code(s): J44.9 - CHRONIC OBSTRUCTIVE PULMONARY DISEASE, UNSPECIFIED (7) Diabetes Assessment/Plan: -diabetic diet -continue SSI Code(s): E11.9 - TYPE 2 DIABETES MELLITUS WITHOUT COMPLICATIONS Qualifiers: Diabetes mellitus type: type 2 Diabetes mellitus complication status: with kidney complications Diabetes mellitus complication detail: with chronic kidney disease Chronic kidney disease stage: stage 4 (severe)
[2017-02-22] MEDS: ALLOPURINOL 100 MG TABLET (FP) PO SCH (11:28)
[2017-02-22] MEDS: RANITIDINE HCL 150 MG TABLET (FP) PO SCH (11:28)
[2017-02-22] MEDS: buPROPion HCL 75 MG TABLET PO SCH (11:28)
[2017-02-22] MEDS: ASCORBIC ACID 500 MG TABLET (FP) PO SCH (11:28)
[2017-02-22] MEDS: CHOLECALCIFEROL (VITAMIN D3) 1,000 UNIT TABLET (FP) PO SCH (11:29)
[2017-02-22] MEDS: MULTIVITAMINS (DAILY MVI) TABLET (FP) PO SCH (11:29)
[2017-02-22] MEDS: TIOTROPIUM BROMIDE 18 MCG/INH (DEVICE W/ 5 CAPSULES) IH SCH (11:29)
[2017-02-22] MEDS: CLOPIDOGREL BISULFATE 75 MG TABLET (FP) PO SCH (11:29)
[2017-02-22] MEDS: BUDESONIDE/FORMETEROL FUMARATE 160/4.5 mcg INHALER IH SCH ×2 (11:29→22:32)
[2017-02-22] MEDS: CARVEDILOL 6.25 MG TABLET (FP) PO SCH ×2 (11:29→22:24)
[2017-02-22] MEDS: DOCUSATE SODIUM 100 MG CAPSULE (FP) PO SCH ×2 (11:29→22:24)
[2017-02-22] MEDS: MILRINONE 20MG/100ML IVPB - 100 ML IVPB SCH (11:30)
--- NOTE | 2017-02-22 11:31 | PN ---
Progress Note (short form) - Note Progress Note: PULMONARY APPEARS TERMINAL AFEBRILE DISTENDED NECK VEINS DISTANT BREATH SOUNDS S1S2 OBESE EDEMA LOWER EXT LABS/MEDS/NOTES/IMAGING/MICRO REVIEWED Acute on Chronic Systolic Heart Failure end stage CAD s/p CABG COPD Chronic Hypoxic Respiratory Failure Atrial Fibrillation Acute on Chronic Renal Failure PAD BPH - continue lasix, milrinone - monitor urine output, creatinine - daily weights, I/Os - O2 to keep SpO2 >90% - rate controlled - continue anticoagulation - discussion with family regarding prognosis Mark SEE MD
--- NOTE | 2017-02-22 11:48 | PN ---
Progress Note (short form) - Note Progress Note: Chief Complaint: sob/cough History of Present Illness: sob and cough persist no signif leg swelling no cp, palpit no loc/dizzy ex cigs Current Medications Generic Name Dose Route Start Last Admin Trade Name Freq PRN Reason Stop Dose Admin Acetaminophen 650 mg 02/17/17 11:09 02/18/17 11:48 Tylenol - PO 650 mg Q4H PRN Administration FEVER OR PAIN Allopurinol 100 mg 02/18/17 10:00 02/22/17 11:28 Zyloprim - PO 100 mg DAILY QUINTON Administration Ascorbic Acid 1,000 mg 02/18/17 10:00 02/22/17 11:28 Vitamin C - PO 1,000 mg DAILY QUINTON Administration Atorvastatin Calcium 40 mg 02/17/17 22:00 02/21/17 21:51 Lipitor - PO 40 mg HS QUINTON Administration Budesonide/Formoterol Fumarate 1 puff 02/17/17 11:15 02/22/17 11:29 Symbicort 160/4.5mcg - IH 1 puff BID QUINTON Administration Bupropion HCl 75 mg 02/17/17 11:15 02/22/17 11:28 Wellbutrin - PO 75 mg DAILY UQINTON Administration Carvedilol 6.25 mg 02/17/17 11:15 02/22/17 11:29 Coreg - PO 6.25 mg BID QUINTON Administration Cholecalciferol 1,000 unit 02/17/17 11:15 02/22/17 11:29 Vitamin D3 - PO 1,000 unit DAILY QUINTON Administration Clopidogrel Bisulfate 75 mg 02/17/17 11:15 02/22/17 11:29 Plavix - PO 75 mg DAILY QU[facility]ON Administration Docusate Sodium 100 mg 02/17/17 22:00 02/22/17 11:29 Colace - PO 100 mg BID QUINTON Administration Ferrous Sulfate 325 mg 02/17/17 11:15 02/21/17 11:36 Feosol - PO 325 mg Q48H QUINTON Administration Furosemide 100 mg 02/20/17 11:08 02/22/17 09:30 Lasix Injection - IVPUSH 100 mg BID@0600,1400 QUINTON Administration Milrinone Lactate/Dextrose 100 mls @ 9.716 mls/hr 02/17/17 11:00 02/22/17 11:30 Milrinone 20mg/100ml Ivpb - IVPB 9.716 mls/hr TITR QUINTON Administration 0.35 MCG/KG/MIN Insulin Aspart 1 vial 02/17/17 16:30 02/22/17 06:18 Novolog Vial Sliding Scale - SQ 2 units ACHS QUINTON Administration Protocol Metolazone 5 mg 02/22/17 13:00 Zaroxolyn - PO 02/22/17 13:01 ONCE ONE Multivitamins/Minerals/Vitamin C 1 tab 02/18/17 10:00 02/22/17 11:29 Tab-A-Vit - PO 1 tab DAILY QU[facility]ON Administration Ondansetron HCl 4 mg 02/17/17 11:09 Zofran Injection IVPB Q6H PRN NAUSEA Ranitidine HCl 75 mg 02/17/17 11:15 02/22/17 11:28 Zantac - PO 75 mg DAILY QUINTON Administration Starch 1 each 02/17/17 22:00 02/21/17 23:24 Anusol Suppository - RC 1 each HS QUINTON Administration Tiotropium [place] 1 puff 02/19/17 17:15 02/22/17 11:29 Spiriva - IH 1 puff DAILY QUINTON Administration Warfarin Sodium 4 mg 02/17/17 18:00 02/21/17 17:40 Coumadin - PO 4 mg DAILY@1800 QUINTON Administration Vital Signs Temp 97.6 F 02/22/17 05:00 Pulse 78 02/22/17 05:00 Resp 22 02/22/17 05:00 BP 122/67 02/22/17 05:00 Pulse Ox 97 02/21/17 21:00 Intake & Output 02/21/17 02/21/17 02/22/17 11:59 23:59 11:59 Intake Total 117 650 116.4 Output Total 775 Balance 117 -125 116.4 Weight 211 lb 6.4 oz 210 lb Intake: IV 117 116.4 R Chest PICC 117 116.4 Oral 650 Output: Urine 775 Void 775 Other: Voiding Method Urinal Toilet Urinal # Unmeasured Voids Void 2 Weight Measurement Method Standing Scale Standing Scale Constitutional: Yes: No Distress, Calm Eyes: No: Sclera Icterus HENT: No: Nasal Congestion Cardiovascular: Yes: Regular Rate and Rhythm, JVD (EJ massively distended at 90 degr (no IJ seen)), S1, S2, Other (PMI non diplaced). No: Gallop, Murmur Respiratory: Yes: bibasilar rales. No: Accessory Muscle Use, Rales, Wheezes Gastrointestinal: Yes: Normal Bowel Sounds, Soft. No: Tenderness Musculoskeletal: Yes: Other (No kyphosis) Extremities: No: Cold Edema: trace -1+ Integumentary: No: Jaundice Neurological: Yes: Alert, Oriented (x3) Psychiatric: No: Agitated Labs: Laboratory Last Values WBC 6.7 K/mm3 (4.0-10.0) 02/22/17 06:02 RBC 4.20 M/mm3 (4.00-5.60) 02/22/17 06:02 Hgb 11.1 GM/dL (11.7-16.9) L 02/22/17 06:02 Hct 34.8 % (35.4-49) L 02/22/17 06:02 MCV 82.8 fl (80-96) 02/22/17 06:02 MCHC 31.8 g/dl (32.0-35.9) L 02/22/17 06:02 RDW 18.3 % (11.9-15.9) H 02/22/17 06:02 Plt Count 161 K/MM3 (134-434) 02/22/17 06:02 MPV 8.7 fl (7.5-11.1) 02/22/17 06:02 Neutrophils % 70.9 % (42.8-82.8) 02/22/17 06:02 Lymphocytes % 13.8 % (8-40) 02/22/17 06:02 Monocytes % 12.5 % (3.8-10.2) H 02/22/17 06:02 Eosinophils % 2.1 % (0-4.5) 02/22/17 06:02 Basophils % 0.7 % (0-2.0) 02/22/17 06:02 Platelet Estimate Adequate (NORMAL) 02/19/17 05:35 Platelet Comment No clumping noted 02/19/17 05:35 INR 2.65 (0.82-1.09) H 02/22/17 06:02 Sodium 140 mmol/L (136-145) 02/22/17 06:02 Potassium 3.5 mmol/L (3.5-5.1) 02/22/17 06:02 Chloride 101 mmol/L (98-107) 02/22/17 06:02 Carbon Dioxide 31 mmol/L (21-32) 02/22/17 06:02 Anion Gap 8 (8-16) 02/22/17 06:02 BUN 51 mg/dL (7-18) H 02/22/17 06:02 Creatinine 1.7 mg/dL (0.7-1.3) H 02/22/17 06:02 Creat Clearance w eGFR 34.46 (>60) 02/19/17 05:35 POC Glucometer 178 UNITS (()) 02/22/17 05:21 Random Glucose 141 mg/dL (74-106) H 02/22/17 06:02 Calcium 8.9 mg/dL (8.5-10.1) 02/22/17 06:02 Phosphorus 3.4 mg/dL (2.5-4.9) 02/22/17 06:02 Magnesium 2.5 mg/dL (1.8-2.4) H 02/22/17 06:02 Total Bilirubin 1.0 mg/dL (0.2-1.0) 02/20/17 05:57 Direct Bilirubin 0.3 mg/dL (0.0-0.2) H 02/20/17 05:57 AST 29 U/L (15-37) 02/20/17 05:57 ALT 26 U/L (12-78) 02/20/17 05:57 Alkaline Phosphatase 175 U/L (45-117) H 02/20/17 05:57 Creatine Kinase 59 IU/L (39-308) 02/17/17 00:15 Troponin I 0.04 ng/ml (0.00-0.05) 02/17/17 00:15 B-Natriuretic Peptide 1720.46 pg/ml (5-450) H 02/17/17 02:10 Total Protein 7.3 g/dl (6.4-8.2) 02/20/17 05:57 Albumin 3.3 g/dl (3.4-5.0) L 02/20/17 05:57 Urine Color Ltyellow 02/17/17 05:15 Urine Appearance Clear 02/17/17 05:15 Urine pH 6.0 (5.0-8.0) 02/17/17 05:15 Ur Specific [place] 1.010 (1.005-1.025) 02/17/17 05:15 Urine Protein Negative (NEGATIVE) 02/17/17 05:15 Urine Glucose (UA) Negative (NEGATIVE) 02/17/17 05:15 Urine Ketones Negative (NEGATIVE) 02/17/17 05:15 Urine Blood Negative (NEGATIVE) 02/17/17 05:15 Urine Nitrite Negative (NEGATIVE) 02/17/17 05:15 Urine Bilirubin Negative (NEGATIVE) 02/17/17 05:15 Urine Urobilinogen Negative E.U./dl (0.2-1.0) 02/17/17 05:15 Ur Leukocyte Esterase Trace (NEGATIVE) H 02/17/17 05:15 Urine RBC 1 /hpf (0-3) 02/17/17 05:15 Urine WBC 3 /hpf (3-5) 02/17/17 05:15 Hyaline Casts 1 /lpf 02/17/17 05:15 Urine Mucus Rare 02/17/17 05:15 - ....Imaging EKG: Other (tele: AF, V-P; rare brief nsvt) ecg 02/16/17: vp integrity echo 05/2016: sev lve, global hk, sev dec lvef, mild rve, nl rv fcn, estefania, mild- mod mr, mv ring, tv ring, mild tr, mild pr, mild phtn, ivc mild dil cxr: chf a/p: 76 year old man with PMH of IDDM, COPD (O2 dependant) HTN, HLD, Afib (on coumadin), CAD s/p CABG 2012, end stage CHF with ICD placement (on milrinone pump), PVD, BPH here with sob. sob, acute systolic CHF, end stage systolic heart failure s/p ICD, on home milrinone infusion: - here with sob/jose - was well diuresed at home to wt 202-204 with creat 2.1 and Na 151--torsemide 80 bid gradually downtitrated back to 40 bid - saw me last week with sob at baseline, but ongoing phlegmy cough--likely sec to advanced copd and NOT chf - developed acute incr sob in afternoon, after left my office for last appt, thinks wt was 207 that day - cxr here worsened, with perihilar edema pattern and RLL infiltrates likely chf (no other clinical signs of PNA) - initial wt 204 standing, up to 207 on HD 2 - suspect diet/fluid noncompliance may be trigger of chf here - cont milrinone at patient's home maintenance dose (on chronic infusion destination therapy)--0.35 mcg/kg/min. - cont home coreg. (no ALESSANDRA due to low bp's and labile creatinines; no Entresto for same reason) - recent office icd check with stable function - 02/17 unclear if sxs from chf or some URI/copd (productive cough). Will give trial of iv lasix 80 x1 today and monitor sxs, cr trend tomorrow to see if improving. - 02/18. Symptoms improving, creatinine improved after lasix 80 mg IV x 1 yesterday. Will continue daily dosing. - 02/19 Ongoing weight gain, will increase lasix to bid dosing--though pt refused 2nd dose due to late in day timing - note: pt gains wt rapidly at home when non-compliant with 1.5L daily fluid restriction ( supervises) and same here when fluid restriction not ordered/ implemented - 02/20: fluid restriction ordered, importance d/w'd RN (to inform trust operations assistant); wt up to 212 (target wt is 207 or less). bid lasix today. responds to metolazone reliably at home when wt rises so low threshold to give this if wt rises further tomorrow (hopefully he is not becoming IV diuretic dependent) - suspect loss of muscle mass over time, with new dry wt closer to 202-204 - 02/21 Significantly bothered by frequent urination. declines damian. Still symptomatic, minimal weight loss this morning. will give extra dose of metolazone this afternoon with pm lasix. -02/22: Cr stable, wt down a pound. Will cont iv lasix 100 bid and give metolazone 5 today as well. afib - currently rate controlled on coreg - cont coumadin per INR VT: - intermittent brief runs of NSVT on tele - has ICD - on max tolerated coreg dose - K/Mag optimized--routine lyte mgmt PVD - con't AC, statin. CAD s/p CABG - No anginal symptoms, no signs acs. Con't home ac, plavix, atorvastatin, coreg HTN: controlled on coreg HLD: con't statin. chu/CKD: - suspect cardiorenal syndrome, with renal fxn improving due to IV diuresis - renal fxn presently at baseline copd - per pulm/pmd
[2017-02-22] MEDS ORDERED: METOLAZONE 5 MG TABLET PO ONE (13:30)
[2017-02-22] MEDS: WARFARIN NA 2 MG TABLET (UD) PO SCH (17:46)
[2017-02-22] MEDS: BACITRACIN/POLYMYXIN B SULFATE 15 GM TUBE TP SCH ×2 (18:29→22:28)
[2017-02-22] MEDS: ATORVASTATIN CA 40 MG TABLET (FP) PO SCH (22:24)
[2017-02-22] MEDS: PHENYLEPHRINE 0.25%/STARCH 1 EACH SUPP.RECT RC SCH (22:24)
[2017-02-23] MEDS: FUROSEMIDE 100 MG/10 ML INJECTABLE VIAL IVPUSH SCH ×3 (06:12→14:53)
[2017-02-23] MEDS: INSULIN SLIDING SCALE (NOVOLOG) 1 VIAL SQ SCH ×4 (06:12→21:16)
[2017-02-23 07:33] LABS: INR 3.05 (0.82-1.09); PROTHROMBIN TIME (PATIENT) 34.3 SEC (9.98-11.88)
[2017-02-23 07:58] LABS: ANION GAP 8 (8-16); CALCIUM 8.7 mg/dL (8.5-10.1); CO2 34 mmol/L (21-32); CREATININE 1.9 mg/dL (0.7-1.3); GLUCOSE,RANDOM 99 mg/dL (74-106)
[2017-02-23] MEDS ORDERED: PT OWN MED DRAWER 7, Y5N ONE ×2 (08:00→21:08)
[2017-02-23] MEDS ORDERED: POTASSIUM CHLORIDE TABS 20 MEQ TABLET.ER (FP) PO ONE (09:30)
[2017-02-23] MEDS: ALBUTEROL SO4 0.083% IH SOL 2.5 MG/3 ML VIAL.NEB. NEB PRN (10:05)
--- NOTE | 2017-02-23 10:32 | PN ---
Progress Note (short form) - Note Progress Note: Chief Complaint: sob/cough History of Present Illness: still with sob worse than baseline but a little better today no signif leg swelling no cp, palpit no loc/dizzy ex cigs Current Medications Generic Name Dose Route Start Last Admin Trade Name Freq PRN Reason Stop Dose Admin Acetaminophen 650 mg 02/17/17 11:09 02/18/17 11:48 Tylenol - PO 650 mg Q4H PRN Administration FEVER OR PAIN Albuterol Sulfate 1 amp 02/22/17 15:54 02/22/17 22:00 Ventolin 0.083% Nebulizer Soln - NEB 1 amp Q4H PRN Administration SHORT OF BREATH/WHEEZING Allopurinol 100 mg 02/18/17 10:00 02/22/17 11:28 Zyloprim - PO 100 mg DAILY QUINTON Administration Ascorbic Acid 1,000 mg 02/18/17 10:00 02/22/17 11:28 Vitamin C - PO 1,000 mg DAILY QUINTON Administration Atorvastatin Calcium 40 mg 02/17/17 22:00 02/22/17 22:24 Lipitor - PO 40 mg HS QUINTON Administration Bacitracin/Polymyxin B Sulfate 1 applic 02/22/17 16:15 02/22/17 22:28 Polysporin Ointment - TP Not Given BID QUINTON Budesonide/Formoterol Fumarate 1 puff 02/17/17 11:15 02/22/17 22:32 Symbicort 160/4.5mcg - IH 1 puff BID QUINTON Administration Bupropion HCl 75 mg 02/17/17 11:15 02/22/17 11:28 Wellbutrin - PO 75 mg DAILY QUINTON Administration Carvedilol 6.25 mg 02/17/17 11:15 02/22/17 22:24 Coreg - PO 6.25 mg BID QUINTON Administration Cholecalciferol 1,000 unit 02/17/17 11:15 02/22/17 11:29 Vitamin D3 - PO 1,000 unit DAILY QU[facility]ON Administration Clopidogrel Bisulfate 75 mg 02/17/17 11:15 02/22/17 11:29 Plavix - PO 75 mg DAILY QUINTON Administration Docusate Sodium 100 mg 02/17/17 22:00 02/22/17 22:24 Colace - PO 100 mg BID QUINTON Administration Ferrous Sulfate 325 mg 02/17/17 11:15 02/21/17 11:36 Feosol - PO 325 mg Q48H QU[facility]ON Administration Furosemide 100 mg 02/20/17 11:08 02/23/17 06:12 Lasix Injection - IVPUSH Not Given BID@0600,1400 [facility] Milrinone Lactate/Dextrose 100 mls @ 9.716 mls/hr 02/17/17 11:00 02/22/17 11:30 Milrinone 20mg/100ml Ivpb - IVPB 9.716 mls/hr TITR QUINTON Administration 0.35 MCG/KG/MIN Insulin Aspart 1 vial 02/17/17 16:30 02/23/17 06:12 Novolog Vial Sliding Scale - SQ Not Given ACHS [facility] Protocol Multivitamins/Minerals/Vitamin C 1 tab 02/18/17 10:00 02/22/17 11:29 Tab-A-Vit - PO 1 tab DAILY QU[facility]ON Administration Ondansetron HCl 4 mg 02/17/17 11:09 Zofran Injection IVPB Q6H PRN NAUSEA Ranitidine HCl 75 mg 02/17/17 11:15 02/22/17 11:28 Zantac - PO 75 mg DAILY QUINTON Administration Starch 1 each 02/17/17 22:00 02/22/17 22:24 Anusol Suppository - RC Not Given HS [facility] Tiotropium [place] 1 puff 02/19/17 17:15 02/22/17 11:29 Spiriva - IH 1 puff DAILY QU[facility]ON Administration Warfarin Sodium 4 mg 02/17/17 18:00 02/22/17 17:46 Coumadin - PO 4 mg DAILY@1800 QUINTON Administration Vital Signs Temp 98 F 02/23/17 05:00 Pulse 75 02/23/17 05:00 Resp 20 02/23/17 05:00 BP 118/67 02/23/17 05:00 Pulse Ox 90 L 02/23/17 05:00 Intake & Output 02/22/17 02/22/17 02/23/17 11:59 23:59 11:59 Intake Total 116.4 518.8 197.6 Output Total 1150 1000 Balance 116.4 -631.2 -802.4 Weight 210 lb 210 lb 3.2 oz Intake: IV 116.4 38.8 77.6 R Chest PICC 116.4 38.8 77.6 Oral 480 120 Output: Urine 1150 1000 Void 1150 1000 Other: Voiding Method Urinal Urinal Urinal # Unmeasured Voids Void 3 Bowel Movement No Yes: 2 # Bowel Movements 1 Weight Measurement Method Standing Scale Standing Scale Constitutional: Yes: No Distress, Calm Eyes: No: Sclera Icterus HENT: No: Nasal Congestion Cardiovascular: Yes: Regular Rate and Rhythm, JVD (EJ massively distended at 90 degr (no IJ seen)), S1, S2, Other (PMI non diplaced). No: Gallop, Murmur Respiratory: Yes: bibasilar rales. No: Accessory Muscle Use, Rales, Wheezes Gastrointestinal: Yes: Normal Bowel Sounds, Soft. No: Tenderness Musculoskeletal: Yes: Other (No kyphosis) Extremities: No: Cold Edema: trace Integumentary: No: Jaundice Neurological: Yes: Alert, Oriented (x3) Psychiatric: No: Agitated Labs: Laboratory Last Values WBC 6.7 K/mm3 (4.0-10.0) 02/22/17 06:02 RBC 4.20 M/mm3 (4.00-5.60) 02/22/17 06:02 Hgb 11.1 GM/dL (11.7-16.9) L 02/22/17 06:02 Hct 34.8 % (35.4-49) L 02/22/17 06:02 MCV 82.8 fl (80-96) 02/22/17 06:02 MCHC 31.8 g/dl (32.0-35.9) L 02/22/17 06:02 RDW 18.3 % (11.9-15.9) H 02/22/17 06:02 Plt Count 161 K/MM3 (134-434) 02/22/17 06:02 MPV 8.7 fl (7.5-11.1) 02/22/17 06:02 Neutrophils % 70.9 % (42.8-82.8) 02/22/17 06:02 Lymphocytes % 13.8 % (8-40) 02/22/17 06:02 Monocytes % 12.5 % (3.8-10.2) H 02/22/17 06:02 Eosinophils % 2.1 % (0-4.5) 02/22/17 06:02 Basophils % 0.7 % (0-2.0) 02/22/17 06:02 Platelet Estimate Adequate (NORMAL) 02/19/17 05:35 Platelet Comment No clumping noted 02/19/17 05:35 INR 3.05 (0.82-1.09) H 02/23/17 05:37 Sodium 141 mmol/L (136-145) 02/23/17 05:37 Potassium 3.2 mmol/L (3.5-5.1) L 02/23/17 05:37 Chloride 99 mmol/L (98-107) 02/23/17 05:37 Carbon Dioxide 34 mmol/L (21-32) H 02/23/17 05:37 Anion Gap 8 (8-16) 02/23/17 05:37 BUN 52 mg/dL (7-18) H 02/23/17 05:37 Creatinine 1.9 mg/dL (0.7-1.3) H 02/23/17 05:37 Creat Clearance w eGFR 34.46 (>60) 02/19/17 05:35 POC Glucometer 111 UNITS (()) 02/23/17 05:46 Random Glucose 99 mg/dL (74-106) D 02/23/17 05:37 Calcium 8.7 mg/dL (8.5-10.1) 02/23/17 05:37 Phosphorus 3.4 mg/dL (2.5-4.9) 02/22/17 06:02 Magnesium 2.5 mg/dL (1.8-2.4) H 02/22/17 06:02 Total Bilirubin 1.0 mg/dL (0.2-1.0) 02/20/17 05:57 Direct Bilirubin 0.3 mg/dL (0.0-0.2) H 02/20/17 05:57 AST 29 U/L (15-37) 02/20/17 05:57 ALT 26 U/L (12-78) 02/20/17 05:57 Alkaline Phosphatase 175 U/L (45-117) H 02/20/17 05:57 Creatine Kinase 59 IU/L (39-308) 02/17/17 00:15 Troponin I 0.04 ng/ml (0.00-0.05) 02/17/17 00:15 B-Natriuretic Peptide 1720.46 pg/ml (5-450) H 02/17/17 02:10 Total Protein 7.3 g/dl (6.4-8.2) 02/20/17 05:57 Albumin 3.3 g/dl (3.4-5.0) L 02/20/17 05:57 Urine Color Ltyellow 02/17/17 05:15 Urine Appearance Clear 02/17/17 05:15 Urine pH 6.0 (5.0-8.0) 02/17/17 05:15 Ur Specific [place] 1.010 (1.005-1.025) 02/17/17 05:15 Urine Protein Negative (NEGATIVE) 02/17/17 05:15 Urine Glucose (UA) Negative (NEGATIVE) 02/17/17 05:15 Urine Ketones Negative (NEGATIVE) 02/17/17 05:15 Urine Blood Negative (NEGATIVE) 02/17/17 05:15 Urine Nitrite Negative (NEGATIVE) 02/17/17 05:15 Urine Bilirubin Negative (NEGATIVE) 02/17/17 05:15 Urine Urobilinogen Negative E.U./dl (0.2-1.0) 02/17/17 05:15 Ur Leukocyte Esterase Trace (NEGATIVE) H 02/17/17 05:15 Urine RBC 1 /hpf (0-3) 02/17/17 05:15 Urine WBC 3 /hpf (3-5) 02/17/17 05:15 Hyaline Casts 1 /lpf 02/17/17 05:15 Urine Mucus Rare 02/17/17 05:15 - ....Imaging EKG: Other (tele: AF, V-P) ecg 02/16/17: [employer] echo 05/2016: sev lve, global hk, sev dec lvef, mild rve, nl rv fcn, estefania, mild- mod mr, mv ring, tv ring, mild tr, mild pr, mild phtn, ivc mild dil cxr: chf a/p: 76 year old man with PMH of IDDM, COPD (O2 dependant) HTN, HLD, Afib (on coumadin), CAD s/p CABG 2012, end stage CHF with ICD placement (on milrinone pump), PVD, BPH here with sob. sob, acute systolic CHF, end stage systolic heart failure s/p ICD, on home milrinone infusion: - here with sob/jose - was well diuresed at home to wt - with creat 2.1 and Na 151--torsemide 80 bid gradually downtitrated back to 40 bid - saw me last week with sob at baseline, but ongoing phlegmy cough--likely sec to advanced copd and NOT chf - developed acute incr sob in afternoon, after left my office for last appt, thinks wt was 207 that day - cxr here worsened, with perihilar edema pattern and RLL infiltrates likely chf (no other clinical signs of PNA) - initial wt 204 standing, up to 207 on HD 2 - suspect diet/fluid noncompliance may be trigger of chf here - cont milrinone at patient's home maintenance dose (on chronic infusion destination therapy)--0.35 mcg/kg/min. - cont home coreg. (no ALESSANDRA due to low bp's and labile creatinines; no Entresto for same reason) - recent office icd check with stable function - 02/17 unclear if sxs from chf or some URI/copd (productive cough). Will give trial of iv lasix 80 x1 today and monitor sxs, cr trend tomorrow to see if improving. - 02/18. Symptoms improving, creatinine improved after lasix 80 mg IV x 1 yesterday. Will continue daily dosing. - 02/19 Ongoing weight gain, will increase lasix to bid dosing--though pt refused 2nd dose due to late in day timing - note: pt gains wt rapidly at home when non-compliant with 1.5L daily fluid restriction ( supervises) and same here when fluid restriction not ordered/ implemented - 02/20: fluid restriction ordered, importance d/w'd RN (to inform anesthetic assistant); wt up to 212 (target wt is 207 or less). bid lasix today. responds to metolazone reliably at home when wt rises so low threshold to give this if wt rises further tomorrow (hopefully he is not becoming IV diuretic dependent) - suspect loss of muscle mass over time, with new dry wt closer to 202-204 - 02/21 Significantly bothered by frequent urination. declines damian. Still symptomatic, minimal weight loss this morning. will give extra dose of metolazone this afternoon with pm lasix. -02/22: Cr stable, wt down a pound. Will cont iv lasix 100 bid and give metolazone 5 today as well. -02/23: cr stable, wt unchanged but pt reports slight improvement in sob. Will replete K. Cont iv lasix. afib - currently rate controlled on coreg - cont coumadin per INR VT: - intermittent brief runs of NSVT on tele - has ICD - on max tolerated coreg dose - replete lytes prn PVD - con't AC, statin. CAD s/p CABG - No anginal symptoms, no signs acs. Con't home ac, plavix, atorvastatin, coreg HTN: controlled on coreg HLD: con't statin. chu/CKD: - suspect cardiorenal syndrome, with renal fxn improving due to IV diuresis - renal fxn presently at baseline copd - per pulm/pmd
--- NOTE | 2017-02-23 11:10 | PN ---
Progress Note, Physician Chief Complaint: Mr Perez says he feels his breathing is a little better today. No cp or n/v. - Current Medication List Current Medications: Active Medications Acetaminophen (Tylenol -) 650 mg PO Q4H PRN PRN Reason: FEVER OR PAIN Last Admin: 02/18/17 11:48 Dose: 650 mg Albuterol Sulfate (Ventolin 0.083% Nebulizer Soln -) 1 amp NEB Q4H PRN PRN Reason: SHORT OF BREATH/WHEEZING Last Admin: 02/23/17 10:05 Dose: 1 amp Allopurinol (Zyloprim -) 100 mg PO DAILY [facility] Last Admin: 02/22/17 11:28 Dose: 100 mg Ascorbic Acid (Vitamin C -) 1,000 mg PO DAILY [facility] Last Admin: 02/22/17 11:28 Dose: 1,000 mg Atorvastatin Calcium (Lipitor -) 40 mg PO HS [facility] Last Admin: 02/22/17 22:24 Dose: 40 mg Bacitracin/Polymyxin B Sulfate (Polysporin Ointment -) 1 applic TP BID [facility] Last Admin: 02/22/17 22:28 Dose: Not Given Budesonide/Formoterol Fumarate (Symbicort 160/4.5mcg -) 1 puff IH BID [facility] Last Admin: 02/22/17 22:32 Dose: 1 puff Bupropion HCl (Wellbutrin -) 75 mg PO DAILY [facility] Last Admin: 02/22/17 11:28 Dose: 75 mg Carvedilol (Coreg -) 6.25 mg PO BID [facility] Last Admin: 02/22/17 22:24 Dose: 6.25 mg Cholecalciferol (Vitamin D3 -) 1,000 unit PO DAILY [facility] Last Admin: 02/22/17 11:29 Dose: 1,000 unit Clopidogrel Bisulfate (Plavix -) 75 mg PO DAILY [facility] Last Admin: 02/22/17 11:29 Dose: 75 mg Docusate Sodium (Colace -) 100 mg PO BID [facility] Last Admin: 02/22/17 22:24 Dose: 100 mg Ferrous Sulfate (Feosol -) 325 mg PO Q48H [facility] Last Admin: 02/21/17 11:36 Dose: 325 mg Furosemide (Lasix Injection -) 100 mg IVPUSH BID@0600,1400 [facility] Last Admin: 02/23/17 06:12 Dose: Not Given Milrinone Lactate/Dextrose (Milrinone 20mg/100ml Ivpb -) 100 mls @ 9.716 mls/ hr IVPB TITR [facility] PRN Reason: 0.35 MCG/KG/MIN Last Admin: 02/22/17 11:30 Dose: 9.716 mls/hr Insulin Aspart (Novolog Vial Sliding Scale -) 1 vial SQ ACHS [facility] PRN Reason: Protocol Last Admin: 02/23/17 06:12 Dose: Not Given Multivitamins/Minerals/Vitamin C (Tab-A-Vit -) 1 tab PO DAILY [facility] Last Admin: 02/22/17 11:29 Dose: 1 tab Ondansetron HCl (Zofran Injection) 4 mg IVPB Q6H PRN PRN Reason: NAUSEA Ranitidine HCl (Zantac -) 75 mg PO DAILY [facility] Last Admin: 02/22/17 11:28 Dose: 75 mg Starch (Anusol Suppository -) 1 each RC HS [facility] Last Admin: 02/22/17 22:24 Dose: Not Given Tiotropium [place] (Spiriva -) 1 puff IH DAILY [facility] Last Admin: 02/22/17 11:29 Dose: 1 puff Warfarin Sodium (Coumadin -) 2 mg PO DAILY@1800 [facility] - Objective Vital Signs: Vital Signs Temperature 98 F 02/23/17 05:00 Pulse Rate 75 02/23/17 10:50 Respiratory Rate 20 02/23/17 05:00 Blood Pressure 118/67 02/23/17 05:00 O2 Sat by Pulse Oximetry (%) 97 02/23/17 10:50 Constitutional: Yes: Well Nourished, No Distress, Calm Cardiovascular: Yes: Pulse Irregular, Murmur. No: Tachycardia, Gallop, Rub Respiratory: Yes: Regular, On Nasal O2, Rhonchi. No: Wheezes Gastrointestinal: Yes: Normal Bowel Sounds, Soft. No: Distention, Tenderness Extremities: Yes: WNL Edema: Yes Edema: LLE: 1+, RLE: 1+ Labs: CBC, BMP 02/22/17 06:02 02/23/17 05:37 INR, PTT INR 3.05 (0.82-1.09) H 02/23/17 05:37 Problem List - Problems (1) CHF (congestive heart failure) Code(s): I50.9 - HEART FAILURE, UNSPECIFIED Qualifiers: Congestive heart failure type: systolic Congestive heart failure chronicity: acute on chronic Qualified Code(s): I50.23 - Acute on chronic systolic (congestive) heart failure (2) Acute and chronic respiratory failure ([id number]) Code(s): J96.20 - ACUTE AND CHR RESP FAILURE, UNSP W HYPOXIA OR HYPERCAPNIA Qualifiers: Respiratory failure complication: hypoxia Qualified Code(s): J96.21 - Acute and chronic respiratory failure with hypoxia (3) Acute on chronic renal insufficiency Code(s): N28.9 - DISORDER OF KIDNEY AND URETER, UNSPECIFIED N18.9 - CHRONIC KIDNEY DISEASE, UNSPECIFIED (4) Atrial fibrillation Code(s): I48.91 - UNSPECIFIED ATRIAL FIBRILLATION Qualifiers: Atrial fibrillation type: chronic Qualified Code(s): I48.2 - Chronic atrial fibrillation (5) CAD (coronary artery disease) Code(s): I25.10 - ATHSCL HEART DISEASE OF [place] CORONARY ARTERY W/O ANG PCTRS (6) COPD (chronic obstructive pulmonary disease) Code(s): J44.9 - CHRONIC OBSTRUCTIVE PULMONARY DISEASE, UNSPECIFIED (7) Diabetes Code(s): E11.9 - TYPE 2 DIABETES MELLITUS WITHOUT COMPLICATIONS Qualifiers: Diabetes mellitus type: type 2 Diabetes mellitus complication status: with kidney complications Diabetes mellitus complication detail: with chronic kidney disease Chronic kidney disease stage: stage 4 (severe) Assessment/Plan (1) CHF (congestive heart failure) Assessment/Plan: -end stage CHF, on milrinone -cardiology following -210lbs today, weight stable -continue lasix 100mg IV bid -case d/w , defer to cardiology to discuss prognosis and expected with patient and Code(s): I50.9 - HEART FAILURE, UNSPECIFIED Qualifiers: Congestive heart failure type: systolic Congestive heart failure chronicity: acute on chronic Qualified Code(s): I50.23 - Acute on chronic systolic (congestive) heart failure (2) Acute and chronic respiratory failure ([id number]) Assessment/Plan: -secondary to CHF exacerbation -continue diuresis -on supplemental oxygen Code(s): J96.20 - ACUTE AND CHR RESP FAILURE, UNSP W HYPOXIA OR HYPERCAPNIA Qualifiers: Respiratory failure complication: hypoxia Qualified Code(s): J96.21 - Acute and chronic respiratory failure with hypoxia (3) Acute on chronic renal insufficiency Assessment/Plan: -cardiorenal -at baseline with diuresis Code(s): N28.9 - DISORDER OF KIDNEY AND URETER, UNSPECIFIED N18.9 - CHRONIC KIDNEY DISEASE, UNSPECIFIED (4) Atrial fibrillation Assessment/Plan: -rate controlled -INR supratherapeutic -decrease coumadin today -daily INR checks Code(s): I48.91 - UNSPECIFIED ATRIAL FIBRILLATION Qualifiers: Atrial fibrillation type: chronic Qualified Code(s): I48.2 - Chronic atrial fibrillation (5) CAD (coronary artery disease) Assessment/Plan: -quiescent -cardiology following -continue home regimen Code(s): I25.10 - ATHSCL HEART DISEASE OF [place] CORONARY ARTERY W/O ANG PCTRS (6) COPD (chronic obstructive pulmonary disease) Assessment/Plan: -continue current management -pulmonary following -chronic respiratory failure secondary to CHF Code(s): J44.9 - CHRONIC OBSTRUCTIVE PULMONARY DISEASE, UNSPECIFIED (7) Diabetes Assessment/Plan: -diabetic diet -continue SSI Code(s): E11.9 - TYPE 2 DIABETES MELLITUS WITHOUT COMPLICATIONS Qualifiers: Diabetes mellitus type: type 2 Diabetes mellitus complication status: with kidney complications Diabetes mellitus complication detail: with chronic kidney disease Chronic kidney disease stage: stage 4 (severe)
[2017-02-23] MEDS: FERROUS SO4 325 MG TABLET (FP) PO SCH (11:11)
[2017-02-23] MEDS: CLOPIDOGREL BISULFATE 75 MG TABLET (FP) PO SCH (11:12)
[2017-02-23] MEDS: ASCORBIC ACID 500 MG TABLET (FP) PO SCH (11:12)
[2017-02-23] MEDS: CARVEDILOL 6.25 MG TABLET (FP) PO SCH ×2 (11:12→21:10)
[2017-02-23] MEDS: ALLOPURINOL 100 MG TABLET (FP) PO SCH (11:13)
[2017-02-23] MEDS: MULTIVITAMINS (DAILY MVI) TABLET (FP) PO SCH (11:13)
[2017-02-23] MEDS: CHOLECALCIFEROL (VITAMIN D3) 1,000 UNIT TABLET (FP) PO SCH (11:14)
[2017-02-23] MEDS: buPROPion HCL 75 MG TABLET PO SCH (11:14)
[2017-02-23] MEDS: RANITIDINE HCL 150 MG TABLET (FP) PO SCH (11:15)
[2017-02-23] MEDS: MILRINONE 20MG/100ML IVPB - 100 ML IVPB SCH (11:15)
[2017-02-23] MEDS: DOCUSATE SODIUM 100 MG CAPSULE (FP) PO SCH ×2 (11:15→21:10)
[2017-02-23] MEDS: BUDESONIDE/FORMETEROL FUMARATE 160/4.5 mcg INHALER IH SCH ×2 (11:31→21:04)
[2017-02-23] MEDS: BACITRACIN/POLYMYXIN B SULFATE 15 GM TUBE TP SCH ×2 (11:31→21:05)
[2017-02-23] MEDS: TIOTROPIUM BROMIDE 18 MCG/INH (DEVICE W/ 5 CAPSULES) IH SCH (11:31)
--- NOTE | 2017-02-23 11:59 | PN ---
Progress Note (short form) - Note Progress Note: Patient seen and examined in the Telemetry unit. Breathing is overall getting better. NAD, on NC O2. No CP. Intake & Output 02/20/17 02/21/17 02/22/17 02/23/17 23:59 23:59 23:59 23:59 Intake Total 318.8 767 635.2 197.6 Output Total 755 356 3045 1000 Balance -81.2 -8 -514.8 -802.4 Weight 212 lb 2 oz 211 lb 6.4 oz 210 lb 210 lb 3.2 oz Last Vital Signs Temp Pulse Resp BP Pulse Ox 98.7 F 75 22 105/72 97 02/23/17 10:00 02/23/17 10:50 02/23/17 10:00 02/23/17 10:00 02/23/17 10:50 Active Medications Acetaminophen (Tylenol -) 650 mg PO Q4H PRN PRN Reason: FEVER OR PAIN Last Admin: 02/18/17 11:48 Dose: 650 mg Albuterol Sulfate (Ventolin 0.083% Nebulizer Soln -) 1 amp NEB Q4H PRN PRN Reason: SHORT OF BREATH/WHEEZING Last Admin: 02/23/17 10:05 Dose: 1 amp Allopurinol (Zyloprim -) 100 mg PO DAILY [facility] Last Admin: 02/23/17 11:13 Dose: 100 mg Ascorbic Acid (Vitamin C -) 1,000 mg PO DAILY [facility] Last Admin: 02/23/17 11:12 Dose: 1,000 mg Atorvastatin Calcium (Lipitor -) 40 mg PO HS [facility] Last Admin: 02/22/17 22:24 Dose: 40 mg Bacitracin/Polymyxin B Sulfate (Polysporin Ointment -) 1 applic TP BID [facility] Last Admin: 02/23/17 11:31 Dose: 1 applic Budesonide/Formoterol Fumarate (Symbicort 160/4.5mcg -) 1 puff IH BID [facility] Last Admin: 02/23/17 11:31 Dose: 1 puff Bupropion HCl (Wellbutrin -) 75 mg PO DAILY [facility] Last Admin: 02/23/17 11:14 Dose: 75 mg Carvedilol (Coreg -) 6.25 mg PO BID [facility] Last Admin: 02/23/17 11:12 Dose: 6.25 mg Cholecalciferol (Vitamin D3 -) 1,000 unit PO DAILY [facility] Last Admin: 02/23/17 11:14 Dose: 1,000 unit Clopidogrel Bisulfate (Plavix -) 75 mg PO DAILY [facility] Last Admin: 02/23/17 11:12 Dose: 75 mg Docusate Sodium (Colace -) 100 mg PO BID [facility] Last Admin: 02/23/17 11:15 Dose: 100 mg Ferrous Sulfate (Feosol -) 325 mg PO Q48H [facility] Last Admin: 02/23/17 11:11 Dose: 325 mg Furosemide (Lasix Injection -) 100 mg IVPUSH BID@0600,1400 [facility] Last Admin: 02/23/17 11:00 Dose: 100 mg Milrinone Lactate/Dextrose (Milrinone 20mg/100ml Ivpb -) 100 mls @ 9.716 mls/ hr IVPB TITR [facility] PRN Reason: 0.35 MCG/KG/MIN Last Admin: 02/23/17 11:15 Dose: 9.716 mls/hr Insulin Aspart (Novolog Vial Sliding Scale -) 1 vial SQ ACHS [facility] PRN Reason: Protocol Last Admin: 02/23/17 11:56 Dose: 6 units Multivitamins/Minerals/Vitamin C (Tab-A-Vit -) 1 tab PO DAILY [facility] Last Admin: 02/23/17 11:13 Dose: 1 tab Ondansetron HCl (Zofran Injection) 4 mg IVPB Q6H PRN PRN Reason: NAUSEA Ranitidine HCl (Zantac -) 75 mg PO DAILY [facility] Last Admin: 02/23/17 11:15 Dose: 75 mg Starch (Anusol Suppository -) 1 each RC HS [facility] Last Admin: 02/22/17 22:24 Dose: Not Given Tiotropium [place] (Spiriva -) 1 puff IH DAILY [facility] Last Admin: 02/23/17 11:31 Dose: 1 puff Warfarin Sodium (Coumadin -) 2 mg PO DAILY@1800 [facility] GENERAL: Awake, alert, NAD HEAD: Normal with no signs of trauma. NECK: Trachea midline, full range of motion, supple. LUNGS: Bibasilar rales HEART: irregular ABDOMEN: Soft, NT, ND, (+) BS EXTREMITIES: 2+ pulses, warm, well-perfused, no edema. SKIN: Warm, dry, normal turgor, no rashes or lesions noted Laboratory Results - last 24 hr 02/22/17 02/23/17 02/23/17 22:23 05:37 05:37 INR 3.05 H Sodium 141 Potassium 3.2 L Chloride 99 Carbon Dioxide 34 H Anion Gap 8 BUN 52 H Creatinine 1.9 H POC Glucometer 266 Random Glucose 99 D Calcium 8.7 02/23/17 05:46 INR Sodium Potassium Chloride Carbon Dioxide Anion Gap BUN Creatinine POC Glucometer 111 Random Glucose Calcium Problem List - Problems (1) CHF (congestive heart failure) Code(s): I50.9 - HEART FAILURE, UNSPECIFIED Qualifiers: (2) CKD (chronic kidney disease) Code(s): N18.9 - CHRONIC KIDNEY DISEASE, UNSPECIFIED Qualifiers: (3) AICD (automatic cardioverter/defibrillator) present Code(s): Z95.810 - PRESENCE OF AUTOMATIC (IMPLANTABLE) CARDIAC DEFIBRILLATOR (4) Acute and chronic respiratory failure ([id number]) Code(s): J96.20 - ACUTE AND CHR RESP FAILURE, UNSP W HYPOXIA OR HYPERCAPNIA Qualifiers: Respiratory failure complication: hypoxia Qualified Code(s): J96.21 - Acute and chronic respiratory failure with hypoxia (5) Acute on chronic renal insufficiency Code(s): N28.9 - DISORDER OF KIDNEY AND URETER, UNSPECIFIED N18.9 - CHRONIC KIDNEY DISEASE, UNSPECIFIED (6) Atrial fibrillation Code(s): I48.91 - UNSPECIFIED ATRIAL FIBRILLATION Qualifiers: Atrial fibrillation type: chronic Qualified Code(s): I48.2 - Chronic atrial fibrillation (7) CAD (coronary artery disease) Code(s): I25.10 - ATHSCL HEART DISEASE OF [place] CORONARY ARTERY W/O ANG PCTRS (8) COPD (chronic obstructive pulmonary disease) Code(s): J44.9 - CHRONIC OBSTRUCTIVE PULMONARY DISEASE, UNSPECIFIED (9) Cardiomyopathy Code(s): I42.9 - CARDIOMYOPATHY, UNSPECIFIED (10) Diabetes Code(s): E11.9 - TYPE 2 DIABETES MELLITUS WITHOUT COMPLICATIONS Qualifiers: Diabetes mellitus type: type 2 Diabetes mellitus complication status: with kidney complications Diabetes mellitus complication detail: with chronic kidney disease Chronic kidney disease stage: stage 4 (severe) (11) Dyspnea on exertion Code(s): R06.09 - OTHER FORMS OF DYSPNEA (12) Presence of permanent cardiac pacemaker Code(s): Z95.0 - PRESENCE OF CARDIAC PACEMAKER PLAN LASIX O2 MILRINONE INHALED BRONCHODILATORS MONITOR LYTES ,RENAL FUNCTION DAILY WTS AC DR HAWKINS
[2017-02-23] MEDS: WARFARIN NA 2 MG TABLET (UD) PO SCH ×2 (17:15→18:54)
[2017-02-23] MEDS: ATORVASTATIN CA 40 MG TABLET (FP) PO SCH (21:10)
[2017-02-23] MEDS: PHENYLEPHRINE 0.25%/STARCH 1 EACH SUPP.RECT RC SCH (21:10)
[2017-02-24] MEDS: FUROSEMIDE 100 MG/10 ML INJECTABLE VIAL IVPUSH SCH ×2 (06:47→14:42)
[2017-02-24] MEDS: INSULIN SLIDING SCALE (NOVOLOG) 1 VIAL SQ SCH ×4 (07:10→22:36)
[2017-02-24 07:38] LABS: BASOPHIL 0.5 % (0-2.0); EOSINOPHIL 1.6 % (0-4.5); MCH 26.6 pg (25.7-33.7); MCHC 32.4 g/dl (32.0-35.9); MEAN PLT VOLUME 8.7 fl (7.5-11.1); NEUTROPHILS 71.2 % (42.8-82.8); PLATELET COUNT 182 K/MM3 (134-434); RDW 18.8 % (11.9-15.9); WHITE BLOOD COUNT 7.2 K/mm3 (4.0-10.0)
[2017-02-24 07:42] LABS: INR 2.71 (0.82-1.09); PROTHROMBIN TIME (PATIENT) 30.4 SEC (9.98-11.88)
[2017-02-24 08:44] LABS: ANION GAP 9 (8-16); CO2 37 mmol/L (21-32); CREATININE 1.8 mg/dL (0.7-1.3); GLUCOSE,RANDOM 189 mg/dL (74-106); MAGNESIUM 2.4 mg/dL (1.8-2.4); PHOSPHOROUS 3.3 mg/dL (2.5-4.9)
[2017-02-24] MEDS ORDERED: PT OWN MED DRAWER 7, Y5N ONE ×4 (09:47→22:00)
[2017-02-24] MEDS: CLOPIDOGREL BISULFATE 75 MG TABLET (FP) PO SCH (09:54)
[2017-02-24] MEDS: RANITIDINE HCL 150 MG TABLET (FP) PO SCH (09:54)
[2017-02-24] MEDS: ALLOPURINOL 100 MG TABLET (FP) PO SCH (09:55)
[2017-02-24] MEDS: CARVEDILOL 6.25 MG TABLET (FP) PO SCH ×2 (09:55→22:32)
[2017-02-24] MEDS: ASCORBIC ACID 500 MG TABLET (FP) PO SCH (09:55)
[2017-02-24] MEDS: BACITRACIN/POLYMYXIN B SULFATE 15 GM TUBE TP SCH ×2 (09:56→22:37)
[2017-02-24] MEDS: DOCUSATE SODIUM 100 MG CAPSULE (FP) PO SCH ×2 (09:56→22:33)
[2017-02-24] MEDS: buPROPion HCL 75 MG TABLET PO SCH (09:56)
[2017-02-24] MEDS: CHOLECALCIFEROL (VITAMIN D3) 1,000 UNIT TABLET (FP) PO SCH (09:56)
[2017-02-24] MEDS: BUDESONIDE/FORMETEROL FUMARATE 160/4.5 mcg INHALER IH SCH ×2 (09:58→22:37)
[2017-02-24] MEDS: TIOTROPIUM BROMIDE 18 MCG/INH (DEVICE W/ 5 CAPSULES) IH SCH (09:58)
--- NOTE | 2017-02-24 10:07 | PN ---
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
[2017-02-24] MEDS: MULTIVITAMINS (DAILY MVI) TABLET (FP) PO SCH (10:08)
[2017-02-24] MEDS: ALBUTEROL SO4 0.083% IH SOL 2.5 MG/3 ML VIAL.NEB. NEB PRN (10:50)
--- NOTE | 2017-02-24 11:14 | PN ---
Progress Note (short form) - Note Progress Note: Chief Complaint: sob/cough History of Present Illness: still with sob worse than baseline but again reports a little better today no signif leg swelling no cp, palpit no loc/dizzy ex cigs Current Medications Generic Name Dose Route Start Last Admin Trade Name Freq PRN Reason Stop Dose Admin Acetaminophen 650 mg 02/17/17 11:09 02/18/17 11:48 Tylenol - PO 650 mg Q4H PRN Administration FEVER OR PAIN Albuterol Sulfate 1 amp 02/22/17 15:54 02/24/17 10:50 Ventolin 0.083% Nebulizer Soln - NEB 1 amp Q4H PRN Administration SHORT OF BREATH/WHEEZING Allopurinol 100 mg 02/18/17 10:00 02/24/17 09:55 Zyloprim - PO 100 mg DAILY [facility] Administration Ascorbic Acid 1,000 mg 02/18/17 10:00 02/24/17 09:55 Vitamin C - PO 1,000 mg DAILY [facility] Administration Atorvastatin Calcium 40 mg 02/17/17 22:00 02/23/17 21:10 Lipitor - PO 40 mg HS [facility] Administration Bacitracin/Polymyxin B Sulfate 1 applic 02/22/17 16:15 02/24/17 09:56 Polysporin Ointment - TP 1 applic BID [facility] Administration Budesonide/Formoterol Fumarate 1 puff 02/17/17 11:15 02/24/17 09:58 Symbicort 160/4.5mcg - IH 1 puff BID [facility] Administration Bupropion HCl 75 mg 02/17/17 11:15 02/24/17 09:56 Wellbutrin - PO 75 mg DAILY [facility] Administration Carvedilol 6.25 mg 02/17/17 11:15 02/24/17 09:55 Coreg - PO 6.25 mg BID [facility] Administration Cholecalciferol 1,000 unit 02/17/17 11:15 02/24/17 09:56 Vitamin D3 - PO 1,000 unit DAILY [facility] Administration Clopidogrel Bisulfate 75 mg 02/17/17 11:15 02/24/17 09:54 Plavix - PO 75 mg DAILY [facility] Administration Docusate Sodium 100 mg 02/17/17 22:00 02/24/17 09:56 Colace - PO 100 mg BID [facility] Administration Ferrous Sulfate 325 mg 02/17/17 11:15 02/23/17 11:11 Feosol - PO 325 mg Q48H [facility] Administration Furosemide 100 mg 02/20/17 11:08 02/24/17 06:47 Lasix Injection - IVPUSH 100 mg BID@0600,1400 [facility] Administration Milrinone Lactate/Dextrose 100 mls @ 9.716 mls/hr 02/17/17 11:00 02/23/17 11:15 Milrinone 20mg/100ml Ivpb - IVPB 9.716 mls/hr TITR [facility] Administration 0.35 MCG/KG/MIN Insulin Aspart 1 vial 02/17/17 16:30 02/24/17 07:10 Novolog Vial Sliding Scale - SQ Not Given ACHS [facility] Protocol Multivitamins/Minerals/Vitamin C 1 tab 02/18/17 10:00 02/23/17 11:13 Tab-A-Vit - PO 1 tab DAILY [facility] Administration Ondansetron HCl 4 mg 02/17/17 11:09 Zofran Injection IVPB Q6H PRN NAUSEA Ranitidine HCl 75 mg 02/17/17 11:15 02/24/17 09:54 Zantac - PO 75 mg DAILY [facility] Administration Starch 1 each 02/17/17 22:00 02/23/17 21:10 Anusol Suppository - RC 1 each HS [facility] Administration Tiotropium [place] 1 puff 02/19/17 17:15 02/24/17 09:58 Spiriva - IH 1 puff DAILY [facility] Administration Warfarin Sodium 2 mg 02/23/17 18:00 02/23/17 18:54 Coumadin - PO Not Given DAILY@1800 [facility] Vital Signs Temp 97.6 F 02/24/17 05:55 Pulse 76 02/24/17 10:49 Resp 20 02/24/17 05:55 BP 125/81 02/24/17 05:55 Pulse Ox 91 L 02/24/17 10:49 Intake & Output 02/23/17 02/23/17 02/24/17 11:59 23:59 11:59 Intake Total 197.6 120 Output Total 1000 1200 300 Balance -802.4 -1080 -300 Weight 210 lb 3.2 oz 207 lb 3.2 oz Intake: IV 77.6 R Chest PICC 77.6 Oral 120 120 Output: Urine 1000 1200 300 Void 1000 1200 300 Other: Voiding Method Urinal Urinal Urinal # Unmeasured Voids Void 3 2 Bowel Movement Yes: 2 # Bowel Movements 1 Weight Measurement Method Standing Scale Standing Scale Constitutional: Yes: No Distress, Calm Eyes: No: Sclera Icterus HENT: No: Nasal Congestion Cardiovascular: Yes: Regular Rate and Rhythm, JVD (EJ massively distended at 90 degr (no IJ seen)), S1, S2, Other (PMI non diplaced). No: Gallop, Murmur Respiratory: Yes: bibasilar rales (improving). No: Accessory Muscle Use, Rales , Wheezes Gastrointestinal: Yes: Normal Bowel Sounds, Soft. No: Tenderness Musculoskeletal: Yes: Other (No kyphosis) Extremities: No: Cold Edema: trace Integumentary: No: Jaundice Neurological: Yes: Alert, Oriented (x3) Psychiatric: No: Agitated Labs: Laboratory Last Values WBC 7.2 K/mm3 (4.0-10.0) 02/24/17 05:35 RBC 4.26 M/mm3 (4.00-5.60) 02/24/17 05:35 Hgb 11.3 GM/dL (11.7-16.9) L 02/24/17 05:35 Hct 35.0 % (35.4-49) L 02/24/17 05:35 MCV 82.0 fl (80-96) 02/24/17 05:35 MCHC 32.4 g/dl (32.0-35.9) 02/24/17 05:35 RDW 18.8 % (11.9-15.9) H 02/24/17 05:35 Plt Count 182 K/MM3 (134-434) 02/24/17 05:35 MPV 8.7 fl (7.5-11.1) 02/24/17 05:35 Neutrophils % 71.2 % (42.8-82.8) 02/24/17 05:35 Lymphocytes % 13.9 % (8-40) 02/24/17 05:35 Monocytes % 12.8 % (3.8-10.2) H 02/24/17 05:35 Eosinophils % 1.6 % (0-4.5) 02/24/17 05:35 Basophils % 0.5 % (0-2.0) 02/24/17 05:35 Platelet Estimate Adequate (NORMAL) 02/19/17 05:35 Platelet Comment No clumping noted 02/19/17 05:35 INR 2.71 (0.82-1.09) H 02/24/17 05:35 Sodium 141 mmol/L (136-145) 02/24/17 05:35 Potassium 2.9 mmol/L (3.5-5.1) L* 02/24/17 05:35 Chloride 95 mmol/L (98-107) L 02/24/17 05:35 Carbon Dioxide 37 mmol/L (21-32) H 02/24/17 05:35 Anion Gap 9 (8-16) 02/24/17 05:35 BUN 54 mg/dL (7-18) H 02/24/17 05:35 Creatinine 1.8 mg/dL (0.7-1.3) H 02/24/17 05:35 Creat Clearance w eGFR 34.46 (>60) 02/19/17 05:35 POC Glucometer 199 UNITS (()) 02/24/17 05:34 Random Glucose 189 mg/dL (74-106) H D 02/24/17 05:35 Calcium 9.0 mg/dL (8.5-10.1) 02/24/17 05:35 Phosphorus 3.3 mg/dL (2.5-4.9) 02/24/17 05:35 Magnesium 2.4 mg/dL (1.8-2.4) 02/24/17 05:35 Total Bilirubin 1.0 mg/dL (0.2-1.0) 02/20/17 05:57 Direct Bilirubin 0.3 mg/dL (0.0-0.2) H 02/20/17 05:57 AST 29 U/L (15-37) 02/20/17 05:57 ALT 26 U/L (12-78) 02/20/17 05:57 Alkaline Phosphatase 175 U/L (45-117) H 02/20/17 05:57 Creatine Kinase 59 IU/L (39-308) 02/17/17 00:15 Troponin I 0.04 ng/ml (0.00-0.05) 02/17/17 00:15 B-Natriuretic Peptide 1720.46 pg/ml (5-450) H 02/17/17 02:10 Total Protein 7.3 g/dl (6.4-8.2) 02/20/17 05:57 Albumin 3.3 g/dl (3.4-5.0) L 02/20/17 05:57 Urine Color Ltyellow 02/17/17 05:15 Urine Appearance Clear 02/17/17 05:15 Urine pH 6.0 (5.0-8.0) 02/17/17 05:15 Ur Specific [place] 1.010 (1.005-1.025) 02/17/17 05:15 Urine Protein Negative (NEGATIVE) 02/17/17 05:15 Urine Glucose (UA) Negative (NEGATIVE) 02/17/17 05:15 Urine Ketones Negative (NEGATIVE) 02/17/17 05:15 Urine Blood Negative (NEGATIVE) 02/17/17 05:15 Urine Nitrite Negative (NEGATIVE) 02/17/17 05:15 Urine Bilirubin Negative (NEGATIVE) 02/17/17 05:15 Urine Urobilinogen Negative E.U./dl (0.2-1.0) 02/17/17 05:15 Ur Leukocyte Esterase Trace (NEGATIVE) H 02/17/17 05:15 Urine RBC 1 /hpf (0-3) 02/17/17 05:15 Urine WBC 3 /hpf (3-5) 02/17/17 05:15 Hyaline Casts 1 /lpf 02/17/17 05:15 Urine Mucus Rare 02/17/17 05:15 - ....Imaging EKG: Other (tele: AF, V-P) ecg 02/16/17: vp [employer] echo 05/2016: sev lve, global hk, sev dec lvef, mild rve, nl rv fcn, estefania, mild- mod mr, mv ring, tv ring, mild tr, mild pr, mild phtn, ivc mild dil cxr: chf a/p: 76 year old man with PMH of IDDM, COPD (O2 dependant) HTN, HLD, Afib (on coumadin), CAD s/p CABG 2012, end stage CHF with ICD placement (on milrinone pump), PVD, BPH here with sob. sob, acute systolic CHF, end stage systolic heart failure s/p ICD, on home milrinone infusion: - here with sob/jose - was well diuresed at home to wt - with creat 2.1 and Na 151--torsemide 80 bid gradually downtitrated back to 40 bid - saw me last week with sob at baseline, but ongoing phlegmy cough--likely sec to advanced copd and NOT chf - developed acute incr sob in afternoon, after left my office for last appt, thinks wt was 207 that day - cxr here worsened, with perihilar edema pattern and RLL infiltrates likely chf (no other clinical signs of PNA) - initial wt 204 standing, up to 207 on HD 2 - suspect diet/fluid noncompliance may be trigger of chf here - cont milrinone at patient's home maintenance dose (on chronic infusion destination therapy)--0.35 mcg/kg/min. - cont home coreg. (no ALESSANDRA due to low bp's and labile creatinines; no Entresto for same reason) - recent office icd check with stable function - 02/17 unclear if sxs from chf or some URI/copd (productive cough). Will give trial of iv lasix 80 x1 today and monitor sxs, cr trend tomorrow to see if improving. - 02/18. Symptoms improving, creatinine improved after lasix 80 mg IV x 1 yesterday. Will continue daily dosing. - 02/19 Ongoing weight gain, will increase lasix to bid dosing--though pt refused 2nd dose due to late in day timing - note: pt gains wt rapidly at home when non-compliant with 1.5L daily fluid restriction ( supervises) and same here when fluid restriction not ordered/ implemented - 02/20: fluid restriction ordered, importance d/w'd RN (to inform pediatric medical assistant); wt up to 212 (target wt is 207 or less). bid lasix today. responds to metolazone reliably at home when wt rises so low threshold to give this if wt rises further tomorrow (hopefully he is not becoming IV diuretic dependent) - suspect loss of muscle mass over time, with new dry wt closer to - - 02/21 Significantly bothered by frequent urination. declines damian. Still symptomatic, minimal weight loss this morning. will give extra dose of metolazone this afternoon with pm lasix. -02/22: Cr stable, wt down a pound. Will cont iv lasix 100 bid and give metolazone 5 today as well. -02/23: cr stable, wt unchanged but pt reports slight improvement in sob. Will replete K. Cont iv lasix. -02/24: cr stable, wt improved today, less sob as well. Cont with lasix 100 iv bid, goal wt close to 203lbs afib - currently rate controlled on coreg - cont coumadin per INR VT: - intermittent brief runs of NSVT on tele - has ICD - on max tolerated coreg dose - replete lytes prn PVD - con't AC, statin. CAD s/p CABG - No anginal symptoms, no signs acs. Con't home ac, plavix, atorvastatin, coreg HTN: controlled on coreg HLD: con't statin. chu/CKD: - suspect cardiorenal syndrome, with renal fxn improving due to IV diuresis - renal fxn presently at baseline copd - per pulm/pmd
--- NOTE | 2017-02-24 13:21 | PN ---
Progress Note, Physician Chief Complaint: Mr Perez says he feels is feeling better, shortness of breath improved. No cp or n/v. - Current Medication List Current Medications: Active Medications Acetaminophen (Tylenol -) 650 mg PO Q4H PRN PRN Reason: FEVER OR PAIN Last Admin: 02/18/17 11:48 Dose: 650 mg Albuterol Sulfate (Ventolin 0.083% Nebulizer Soln -) 1 amp NEB Q4H PRN PRN Reason: SHORT OF BREATH/WHEEZING Last Admin: 02/24/17 10:50 Dose: 1 amp Allopurinol (Zyloprim -) 100 mg PO DAILY [facility] Last Admin: 02/24/17 09:55 Dose: 100 mg Ascorbic Acid (Vitamin C -) 1,000 mg PO DAILY [facility] Last Admin: 02/24/17 09:55 Dose: 1,000 mg Atorvastatin Calcium (Lipitor -) 40 mg PO HS [facility] Last Admin: 02/23/17 21:10 Dose: 40 mg Bacitracin/Polymyxin B Sulfate (Polysporin Ointment -) 1 applic TP BID [facility] Last Admin: 02/24/17 09:56 Dose: 1 applic Budesonide/Formoterol Fumarate (Symbicort 160/4.5mcg -) 1 puff IH BID [facility] Last Admin: 02/24/17 09:58 Dose: 1 puff Bupropion HCl (Wellbutrin -) 75 mg PO DAILY [facility] Last Admin: 02/24/17 09:56 Dose: 75 mg Carvedilol (Coreg -) 6.25 mg PO BID [facility] Last Admin: 02/24/17 09:55 Dose: 6.25 mg Cholecalciferol (Vitamin D3 -) 1,000 unit PO DAILY [facility] Last Admin: 02/24/17 09:56 Dose: 1,000 unit Clopidogrel Bisulfate (Plavix -) 75 mg PO DAILY [facility] Last Admin: 02/24/17 09:54 Dose: 75 mg Docusate Sodium (Colace -) 100 mg PO BID [facility] Last Admin: 02/24/17 09:56 Dose: 100 mg Ferrous Sulfate (Feosol -) 325 mg PO Q48H [facility] Last Admin: 02/23/17 11:11 Dose: 325 mg Furosemide (Lasix Injection -) 100 mg IVPUSH BID@0600,1400 [facility] Last Admin: 02/24/17 06:47 Dose: 100 mg Milrinone Lactate/Dextrose (Milrinone 20mg/100ml Ivpb -) 100 mls @ 9.716 mls/ hr IVPB TITR [facility] PRN Reason: 0.35 MCG/KG/MIN Last Admin: 02/23/17 11:15 Dose: 9.716 mls/hr Potassium Chloride (Potassium Chloride 10 Meq Premix Ivpb -) 100 mls @ 100 mls/ hr IVPB Q60M [facility] Stop: 02/24/17 15:29 Insulin Aspart (Novolog Vial Sliding Scale -) 1 vial SQ ACHS [facility] PRN Reason: Protocol Last Admin: 02/24/17 12:07 Dose: 6 units Multivitamins/Minerals/Vitamin C (Tab-A-Vit -) 1 tab PO DAILY [facility] Last Admin: 02/24/17 10:08 Dose: 1 tab Ondansetron HCl (Zofran Injection) 4 mg IVPB Q6H PRN PRN Reason: NAUSEA Potassium Chloride (K-Dur -) 40 meq PO DAILY [facility] Ranitidine HCl (Zantac -) 75 mg PO DAILY [facility] Last Admin: 02/24/17 09:54 Dose: 75 mg Starch (Anusol Suppository -) 1 each RC HS [facility] Last Admin: 02/23/17 21:10 Dose: 1 each Tiotropium [place] (Spiriva -) 1 puff IH DAILY [facility] Last Admin: 02/24/17 09:58 Dose: 1 puff Warfarin Sodium (Coumadin -) 2 mg PO DAILY@1800 [facility] Last Admin: 02/23/17 18:54 Dose: Not Given - Objective Vital Signs: Vital Signs Temperature 98.4 F 02/24/17 10:00 Pulse Rate 76 02/24/17 10:49 Respiratory Rate 20 02/24/17 10:00 Blood Pressure 116/78 02/24/17 10:00 O2 Sat by Pulse Oximetry (%) 91 L 02/24/17 10:49 Constitutional: Yes: Well Nourished, No Distress, Calm Cardiovascular: Yes: Pulse Irregular. No: Gallop, Murmur, Rub Respiratory: Yes: Regular, On Nasal O2, Rhonchi. No: Rales, Wheezes Gastrointestinal: Yes: Normal Bowel Sounds, Soft. No: Distention, Tenderness Extremities: Yes: WNL Edema: Yes Edema: LLE: 1+, RLE: 1+ Labs: CBC, BMP 02/24/17 05:35 02/24/17 05:35 INR, PTT INR 2.71 (0.82-1.09) H 02/24/17 05:35 Problem List - Problems (1) CHF (congestive heart failure) Code(s): I50.9 - HEART FAILURE, UNSPECIFIED Qualifiers: Congestive heart failure type: systolic Congestive heart failure chronicity: acute on chronic Qualified Code(s): I50.23 - Acute on chronic systolic (congestive) heart failure (2) Acute and chronic respiratory failure ([id number]) Code(s): J96.20 - ACUTE AND CHR RESP FAILURE, UNSP W HYPOXIA OR HYPERCAPNIA Qualifiers: Respiratory failure complication: hypoxia Qualified Code(s): J96.21 - Acute and chronic respiratory failure with hypoxia (3) Acute on chronic renal insufficiency Code(s): N28.9 - DISORDER OF KIDNEY AND URETER, UNSPECIFIED N18.9 - CHRONIC KIDNEY DISEASE, UNSPECIFIED (4) Atrial fibrillation Code(s): I48.91 - UNSPECIFIED ATRIAL FIBRILLATION Qualifiers: Atrial fibrillation type: chronic Qualified Code(s): I48.2 - Chronic atrial fibrillation (5) CAD (coronary artery disease) Code(s): I25.10 - ATHSCL HEART DISEASE OF [place] CORONARY ARTERY W/O ANG PCTRS (6) COPD (chronic obstructive pulmonary disease) Code(s): J44.9 - CHRONIC OBSTRUCTIVE PULMONARY DISEASE, UNSPECIFIED (7) Diabetes Code(s): E11.9 - TYPE 2 DIABETES MELLITUS WITHOUT COMPLICATIONS Qualifiers: Diabetes mellitus type: type 2 Diabetes mellitus complication status: with kidney complications Diabetes mellitus complication detail: with chronic kidney disease Chronic kidney disease stage: stage 4 (severe) Assessment/Plan (1) CHF (congestive heart failure) Assessment/Plan: -end stage CHF, on milrinone -cardiology following and note reviewed -207lbs today -continue lasix 100mg IV bid -case d/w at bedside Code(s): I50.9 - HEART FAILURE, UNSPECIFIED Qualifiers: Congestive heart failure type: systolic Congestive heart failure chronicity: acute on chronic Qualified Code(s): I50.23 - Acute on chronic systolic (congestive) heart failure (2) Acute and chronic respiratory failure ([id number]) Assessment/Plan: -secondary to CHF exacerbation -continue diuresis -on supplemental oxygen Code(s): J96.20 - ACUTE AND CHR RESP FAILURE, UNSP W HYPOXIA OR HYPERCAPNIA Qualifiers: Respiratory failure complication: hypoxia Qualified Code(s): J96.21 - Acute and chronic respiratory failure with hypoxia (3) Acute on chronic renal insufficiency Assessment/Plan: -cardiorenal -at baseline with diuresis Code(s): N28.9 - DISORDER OF KIDNEY AND URETER, UNSPECIFIED N18.9 - CHRONIC KIDNEY DISEASE, UNSPECIFIED (4) Atrial fibrillation Assessment/Plan: -rate controlled -INR therapeutic -continue coumadin at decreased dose currently -daily INR checks Code(s): I48.91 - UNSPECIFIED ATRIAL FIBRILLATION Qualifiers: Atrial fibrillation type: chronic Qualified Code(s): I48.2 - Chronic atrial fibrillation (5) CAD (coronary artery disease) Assessment/Plan: -quiescent -cardiology following -continue home regimen Code(s): I25.10 - ATHSCL HEART DISEASE OF [place] CORONARY ARTERY W/O ANG PCTRS (6) COPD (chronic obstructive pulmonary disease) Assessment/Plan: -continue current management -pulmonary following -chronic respiratory failure secondary to CHF Code(s): J44.9 - CHRONIC OBSTRUCTIVE PULMONARY DISEASE, UNSPECIFIED (7) Diabetes Assessment/Plan: -diabetic diet -continue SSI Code(s): E11.9 - TYPE 2 DIABETES MELLITUS WITHOUT COMPLICATIONS Qualifiers: Diabetes mellitus type: type 2 Diabetes mellitus complication status: with kidney complications Diabetes mellitus complication detail: with chronic kidney disease Chronic kidney disease stage: stage 4 (severe)
[2017-02-24] MEDS ORDERED: POTASSIUM CHLORIDE TABS 20 MEQ TABLET.ER (FP) PO SCH (13:30)
[2017-02-24] MEDS: WARFARIN NA 2 MG TABLET (UD) PO SCH (17:17)
[2017-02-24] MEDS: MILRINONE 20MG/100ML IVPB - 100 ML IVPB SCH (18:11)
[2017-02-24] MEDS: KCL 10 MEQ IVPB 100 ML IVPB SCH ×2 (18:12→21:00)
[2017-02-24] MEDS: ATORVASTATIN CA 40 MG TABLET (FP) PO SCH (22:33)
[2017-02-24] MEDS: PHENYLEPHRINE 0.25%/STARCH 1 EACH SUPP.RECT RC SCH (22:56)
[2017-02-25] MEDS: INSULIN SLIDING SCALE (NOVOLOG) 1 VIAL SQ SCH ×4 (06:56→21:30)
[2017-02-25] MEDS: FUROSEMIDE 100 MG/10 ML INJECTABLE VIAL IVPUSH SCH ×2 (06:56→14:30)
[2017-02-25 07:46] LABS: INR 2.78 (0.82-1.09); PROTHROMBIN TIME (PATIENT) 31.2 SEC (9.98-11.88)
[2017-02-25 07:49] LABS: BASOPHIL 0.5 % (0-2.0); EOSINOPHIL 1.6 % (0-4.5); MCH 26.5 pg (25.7-33.7); MCHC 32.2 g/dl (32.0-35.9); MEAN CELL VOLUME 82.4 fl (80-96); MEAN PLT VOLUME 8.6 fl (7.5-11.1); NEUTROPHILS 68.4 % (42.8-82.8); PLATELET COUNT 163 K/MM3 (134-434); RDW 18.9 % (11.9-15.9); WHITE BLOOD COUNT 6.6 K/mm3 (4.0-10.0)
[2017-02-25 08:17] LABS: ANION GAP 10 (8-16); CALCIUM 9.1 mg/dL (8.5-10.1); CO2 36 mmol/L (21-32); CREATININE 1.8 mg/dL (0.7-1.3); GLUCOSE,RANDOM 205 mg/dL (74-106); MAGNESIUM 2.2 mg/dL (1.8-2.4); PHOSPHOROUS 3.3 mg/dL (2.5-4.9)
[2017-02-25] MEDS ORDERED: METOLAZONE 5 MG TABLET PO ONE ×2 (08:35→13:30)
--- NOTE | 2017-02-25 08:40 | PN ---
Progress Note, Physician Chief Complaint: chf History of Present Illness: sob in bed b/c just walked back from bathroom no PND coughing--no phlegm no cp, palpit ex-cig - Current Medication List Current Medications: Active Medications Acetaminophen (Tylenol -) 650 mg PO Q4H PRN PRN Reason: FEVER OR PAIN Last Admin: 02/18/17 11:48 Dose: 650 mg Albuterol Sulfate (Ventolin 0.083% Nebulizer Soln -) 1 amp NEB Q4H PRN PRN Reason: SHORT OF BREATH/WHEEZING Last Admin: 02/24/17 10:50 Dose: 1 amp Allopurinol (Zyloprim -) 100 mg PO DAILY [facility] Last Admin: 02/24/17 09:55 Dose: 100 mg Ascorbic Acid (Vitamin C -) 1,000 mg PO DAILY [facility] Last Admin: 02/24/17 09:55 Dose: 1,000 mg Atorvastatin Calcium (Lipitor -) 40 mg PO HS [facility] Last Admin: 02/24/17 22:33 Dose: 40 mg Bacitracin/Polymyxin B Sulfate (Polysporin Ointment -) 1 applic TP BID [facility] Last Admin: 02/24/17 22:37 Dose: 1 applic Budesonide/Formoterol Fumarate (Symbicort 160/4.5mcg -) 1 puff IH BID [facility] Last Admin: 02/24/17 22:37 Dose: 1 puff Bupropion HCl (Wellbutrin -) 75 mg PO DAILY [facility] Last Admin: 02/24/17 09:56 Dose: 75 mg Carvedilol (Coreg -) 6.25 mg PO BID [facility] Last Admin: 02/24/17 22:32 Dose: 6.25 mg Cholecalciferol (Vitamin D3 -) 1,000 unit PO DAILY [facility] Last Admin: 02/24/17 09:56 Dose: 1,000 unit Clopidogrel Bisulfate (Plavix -) 75 mg PO DAILY [facility] Last Admin: 02/24/17 09:54 Dose: 75 mg Docusate Sodium (Colace -) 100 mg PO BID [facility] Last Admin: 02/24/17 22:33 Dose: 100 mg Ferrous Sulfate (Feosol -) 325 mg PO Q48H [facility] Last Admin: 02/23/17 11:11 Dose: 325 mg Furosemide (Lasix Injection -) 100 mg IVPUSH BID@0600,1400 [facility] Last Admin: 02/25/17 06:56 Dose: 100 mg Milrinone Lactate/Dextrose (Milrinone 20mg/100ml Ivpb -) 100 mls @ 9.716 mls/ hr IVPB TITR [facility] PRN Reason: 0.35 MCG/KG/MIN Last Admin: 02/24/17 18:11 Dose: 9.716 mls/hr Insulin Aspart (Novolog Vial Sliding Scale -) 1 vial SQ ACHS [facility] PRN Reason: Protocol Last Admin: 02/25/17 06:56 Dose: 2 units Metolazone (Zaroxolyn -) 5 mg PO ONCE ONE Stop: 02/25/17 08:36 Multivitamins/Minerals/Vitamin C (Tab-A-Vit -) 1 tab PO DAILY [facility] Last Admin: 02/24/17 10:08 Dose: 1 tab Ondansetron HCl (Zofran Injection) 4 mg IVPB Q6H PRN PRN Reason: NAUSEA Potassium Chloride (K-Dur -) 40 meq PO TID [facility] Ranitidine HCl (Zantac -) 75 mg PO DAILY [facility] Last Admin: 02/24/17 09:54 Dose: 75 mg Starch (Anusol Suppository -) 1 each RC HS [facility] Last Admin: 02/24/17 22:56 Dose: 1 each Tiotropium [place] (Spiriva -) 1 puff IH DAILY [facility] Last Admin: 02/24/17 09:58 Dose: 1 puff Warfarin Sodium (Coumadin -) 2 mg PO DAILY@1800 [facility] Last Admin: 02/24/17 17:17 Dose: 2 mg - Objective Vital Signs: Vital Signs Temperature 97.5 F L 02/25/17 01:00 Pulse Rate 75 02/25/17 05:00 Respiratory Rate 20 02/25/17 05:00 Blood Pressure 113/59 02/25/17 05:00 O2 Sat by Pulse Oximetry (%) 92 L 02/24/17 21:00 Constitutional: Yes: No Distress, Calm Eyes: No: Sclera Icterus HENT: No: Nasal Congestion Cardiovascular: Yes: Regular Rate and Rhythm, JVD (++), S1, S2, Other (PMI non diplaced). No: Gallop, Murmur Respiratory: Yes: CTA Bilaterally. No: Accessory Muscle Use, Rales, Wheezes Gastrointestinal: Yes: Normal Bowel Sounds, Soft. No: Tenderness Musculoskeletal: Yes: Other (No kyphosis) Extremities: No: Cool Edema: Yes (1-2+ L ankle) Integumentary: No: Jaundice Neurological: Yes: Alert, Oriented (x3) Psychiatric: No: Agitated Labs: CBC, BMP 02/25/17 05:35 02/25/17 05:35 INR, PTT INR 2.78 (0.82-1.09) H 02/25/17 05:35 - ....Imaging EKG: Other (tele: AF, V-paced; NSVT 7b) Assessment/Plan echo 05/2016: sev lve, global hk, sev dec lvef, mild rve, nl rv fcn, estefania, mild- mod mr, mv ring, tv ring, mild tr, mild pr, mild phtn, ivc mild dil cxr: chf a/p: 76 year old man with PMH of IDDM, COPD (O2 dependant) HTN, HLD, Afib (on coumadin), CAD s/p CABG 2012, end stage CHF with ICD placement (on milrinone pump), PVD, BPH here with sob. acute on chronic systolic CHF, end stage systolic heart failure s/p ICD, on home milrinone infusion: - here with sob/jose - was well diuresed at home to wt 202-204 with creat 2.1 and Na 151--torsemide 80 bid gradually downtitrated back to 40 bid - saw me last week with sob at baseline, but ongoing phlegmy cough--likely sec to advanced copd and NOT chf - developed acute incr sob in afternoon, after left my office for last appt, thinks wt was 207 that day - cxr here worsened, with perihilar edema pattern and RLL infiltrates likely chf (no other clinical signs of PNA) - initial wt 204 standing, up to 207 on HD 2 - suspect diet/fluid noncompliance may be trigger of chf here - cont milrinone at patient's home maintenance dose (on chronic infusion destination therapy)--0.35 mcg/kg/min. - cont home coreg. (no ALESSANDRA due to low bp's and labile creatinines; no Entresto for same reason) - recent office icd check with stable function - 02/17 unclear if sxs from chf or some URI/copd (productive cough). Will give trial of iv lasix 80 x1 today and monitor sxs, cr trend tomorrow to see if improving. - 02/18. Symptoms improving, creatinine improved after lasix 80 mg IV x 1 yesterday. Will continue daily dosing. - 02/19 Ongoing weight gain, will increase lasix to bid dosing--though pt refused 2nd dose due to late in day timing - note: pt gains wt rapidly at home when non-compliant with 1.5L daily fluid restriction ( supervises) and same here when fluid restriction not ordered/ implemented - 02/20: fluid restriction ordered, importance d/w'd RN (to inform web press operator assistant); wt up to 212 (target wt is 207 or less). bid lasix today. responds to metolazone reliably at home when wt rises so low threshold to give this if wt rises further tomorrow (hopefully he is not becoming IV diuretic dependent) - suspect loss of muscle mass over time, with new dry wt closer to 202-204 - 02/21 Significantly bothered by frequent urination. declines damian. Still symptomatic, minimal weight loss this morning. will give extra dose of metolazone this afternoon with pm lasix. -02/22: Cr stable, wt down a pound. Will cont iv lasix 100 bid and give metolazone 5 today as well. -02/23: cr stable, wt unchanged but pt reports slight improvement in sob. Will replete K. Cont iv lasix. -02/24: cr stable, wt improved today, less sob as well. Cont with lasix 100 iv bid, goal wt close to 203lbs -02/25: wt stalled at 207. cont iv lasix today and rpt metolazone 5mg, bp permitting. will cont iv lasix until objective signs of vol depletion ( hypotension, elev bun/creat) to better define dry wt, in hopes of avoiding ongoing freq hospitalizations -was transiently hypotensive to 80s this am after iv lasix, bp now back up-- observe closely (will attempt metolazone with lasix later today, if bp drops again will hold carvedilol temporarily to allow aggressive diuresis to proceed) -d/w'd yest need to see chf specialist again, ? milrinone dosing can be adjusted--dr perea ([facility]) has left so they will transfer care and do not want [facility] (she is to make appt with dr harden at [facility]) -if no further options per CHF specialist eval, and cannot keep him out of the hospital with more aggressive weight target, will have to discuss palliative care/home hospice with pt and afib - currently rate controlled on coreg - cont coumadin per INR VT: - intermittent brief runs of NSVT on tele, chronic finding on prior admits - has ICD - on max tolerated coreg dose - replete lytes prn (aggressive K repletion ordered) PVD - con't AC, statin. CAD s/p CABG - No anginal symptoms, no signs acs. Con't home ac, plavix, atorvastatin, coreg HTN: controlled on coreg HLD: con't statin. chu/CKD: - suspect cardiorenal syndrome, with renal fxn improving due to IV diuresis - renal fxn presently at baseline copd - per pulm/pmd
[2017-02-25] MEDS: POTASSIUM CHLORIDE TABS 20 MEQ TABLET.ER (FP) PO SCH ×3 (08:49→21:25)
[2017-02-25] MEDS: CHOLECALCIFEROL (VITAMIN D3) 1,000 UNIT TABLET (FP) PO SCH (10:07)
[2017-02-25] MEDS: DOCUSATE SODIUM 100 MG CAPSULE (FP) PO SCH ×2 (10:07→21:25)
[2017-02-25] MEDS: buPROPion HCL 75 MG TABLET PO SCH (10:07)
[2017-02-25] MEDS: MULTIVITAMINS (DAILY MVI) TABLET (FP) PO SCH (10:07)
[2017-02-25] MEDS: CLOPIDOGREL BISULFATE 75 MG TABLET (FP) PO SCH (10:07)
[2017-02-25] MEDS: ALLOPURINOL 100 MG TABLET (FP) PO SCH (10:08)
[2017-02-25] MEDS: ASCORBIC ACID 500 MG TABLET (FP) PO SCH (10:08)
[2017-02-25] MEDS: RANITIDINE HCL 150 MG TABLET (FP) PO SCH (10:08)
[2017-02-25] MEDS: CARVEDILOL 6.25 MG TABLET (FP) PO SCH ×2 (10:08→21:25)
[2017-02-25] MEDS: BACITRACIN/POLYMYXIN B SULFATE 15 GM TUBE TP SCH ×2 (10:10→21:26)
[2017-02-25] MEDS: TIOTROPIUM BROMIDE 18 MCG/INH (DEVICE W/ 5 CAPSULES) IH SCH (10:10)
[2017-02-25] MEDS: BUDESONIDE/FORMETEROL FUMARATE 160/4.5 mcg INHALER IH SCH ×2 (10:10→21:25)
[2017-02-25] MEDS: FERROUS SO4 325 MG TABLET (FP) PO SCH (11:30)
[2017-02-25] MEDS: ACETAMINOPHEN 325 MG TABLET (FP) PO PRN ×2 (11:31→17:50)
--- NOTE | 2017-02-25 13:09 | PN ---
Progress Note (short form) - Note Progress Note: PULMONARY RESTING COMFORTABLY AFEBRILE/VSS DISTENDED NECK VEINS DISTANT BREATH SOUNDS S1S2 OBESE EDEMA LOWER EXT LABS/MEDS/NOTES/IMAGING/MICRO REVIEWED Acute on Chronic Systolic Heart Failure end stage CAD s/p CABG COPD Chronic Hypoxic Respiratory Failure Atrial Fibrillation Acute on Chronic Renal Failure PAD BPH - continue lasix, milrinone - replete K+ - monitor urine output, creatinine - daily weights, I/Os - O2 to keep SpO2 >90% - rate controlled - continue anticoagulation - intermediate prognosis is poor Mark SEE MD
[2017-02-25] MEDS: MILRINONE 20MG/100ML IVPB - 100 ML IVPB SCH (15:35)
--- NOTE | 2017-02-25 15:53 | PN ---
Progress Note (short form) - Note Progress Note: C/o Fatigue SOB is less No chest pain O/E Vital Signs Period Temp Pulse Resp BP Sys/Orantes Pulse Ox Last 24 Hr 97.4 F-98.8 F 75-76 18-20 89-129/46-75 92-92 Heart irregular Lungs clear Abd osft Ext trace edema Current Medications Acetaminophen (Tylenol -) 650 mg PO Q4H PRN PRN Reason: FEVER OR PAIN Last Admin: 02/25/17 11:31 Dose: 650 mg Albuterol Sulfate (Ventolin 0.083% Nebulizer Soln -) 1 amp NEB Q4H PRN PRN Reason: SHORT OF BREATH/WHEEZING Last Admin: 02/24/17 10:50 Dose: 1 amp Allopurinol (Zyloprim -) 100 mg PO DAILY [facility] Last Admin: 02/25/17 10:08 Dose: 100 mg Ascorbic Acid (Vitamin C -) 1,000 mg PO DAILY [facility] Last Admin: 02/25/17 10:08 Dose: 1,000 mg Atorvastatin Calcium (Lipitor -) 40 mg PO HS [facility] Last Admin: 02/24/17 22:33 Dose: 40 mg Bacitracin/Polymyxin B Sulfate (Polysporin Ointment -) 1 applic TP BID [facility] Last Admin: 02/25/17 10:10 Dose: 1 applic Budesonide/Formoterol Fumarate (Symbicort 160/4.5mcg -) 1 puff IH BID [facility] Last Admin: 02/25/17 10:10 Dose: 1 puff Bupropion HCl (Wellbutrin -) 75 mg PO DAILY [facility] Last Admin: 02/25/17 10:07 Dose: 75 mg Carvedilol (Coreg -) 6.25 mg PO BID [facility] Last Admin: 02/25/17 10:08 Dose: 6.25 mg Cholecalciferol (Vitamin D3 -) 1,000 unit PO DAILY [facility] Last Admin: 02/25/17 10:07 Dose: 1,000 unit Clopidogrel Bisulfate (Plavix -) 75 mg PO DAILY [facility] Last Admin: 02/25/17 10:07 Dose: 75 mg Docusate Sodium (Colace -) 100 mg PO BID [facility] Last Admin: 02/25/17 10:07 Dose: 100 mg Ferrous Sulfate (Feosol -) 325 mg PO Q48H [facility] Last Admin: 02/23/17 11:11 Dose: 325 mg Furosemide (Lasix Injection -) 100 mg IVPUSH BID@0600,1400 [facility] Last Admin: 02/25/17 14:30 Dose: 100 mg Milrinone Lactate/Dextrose (Milrinone 20mg/100ml Ivpb -) 100 mls @ 9.716 mls/ hr IVPB TITR [facility] PRN Reason: 0.35 MCG/KG/MIN Last Admin: 02/25/17 15:35 Dose: 9.716 mls/hr Insulin Aspart (Novolog Vial Sliding Scale -) 1 vial SQ ACHS [facility] PRN Reason: Protocol Last Admin: 02/25/17 11:46 Dose: 4 units Multivitamins/Minerals/Vitamin C (Tab-A-Vit -) 1 tab PO DAILY [facility] Last Admin: 02/25/17 10:07 Dose: 1 tab Ondansetron HCl (Zofran Injection) 4 mg IVPB Q6H PRN PRN Reason: NAUSEA Potassium Chloride (K-Dur -) 40 meq PO TID [facility] Last Admin: 02/25/17 14:32 Dose: 40 meq Ranitidine HCl (Zantac -) 75 mg PO DAILY [facility] Last Admin: 02/25/17 10:08 Dose: 75 mg Starch (Anusol Suppository -) 1 each RC HS [facility] Last Admin: 02/24/17 22:56 Dose: 1 each Tiotropium [place] (Spiriva -) 1 puff IH DAILY [facility] Last Admin: 02/25/17 10:10 Dose: 1 puff Warfarin Sodium (Coumadin -) 2 mg PO DAILY@1800 [facility] Last Admin: 02/24/17 17:17 Dose: 2 mg Laboratory Results - last 24 hr 02/24/17 02/24/17 02/25/17 15:51 22:30 05:35 WBC RBC Hgb Hct MCV MCHC RDW Plt Count MPV Neutrophils % Lymphocytes % Monocytes % Eosinophils % Basophils % INR Sodium 141 Potassium 3.0 L Chloride 95 L Carbon Dioxide 36 H Anion Gap 10 BUN 56 H Creatinine 1.8 H POC Glucometer 131 300 Random Glucose 205 H Calcium 9.1 Phosphorus 3.3 Magnesium 2.2 02/25/17 02/25/17 02/25/17 05:35 05:35 06:02 WBC 6.6 RBC 4.23 Hgb 11.2 L Hct 34.8 L MCV 82.4 MCHC 32.2 RDW 18.9 H Plt Count 163 MPV 8.6 Neutrophils % 68.4 Lymphocytes % 15.7 Monocytes % 13.8 H Eosinophils % 1.6 Basophils % 0.5 INR 2.78 H Sodium Potassium Chloride Carbon Dioxide Anion Gap BUN Creatinine POC Glucometer 168 Random Glucose Calcium Phosphorus Magnesium 02/25/17 11:34 WBC RBC Hgb Hct MCV MCHC RDW Plt Count MPV Neutrophils % Lymphocytes % Monocytes % Eosinophils % Basophils % INR Sodium Potassium Chloride Carbon Dioxide Anion Gap BUN Creatinine POC Glucometer 225 Random Glucose Calcium Phosphorus Magnesium Assessment/Plan (1) CHF (congestive heart failure) Assessment/Plan: -end stage CHF, cont present care , prognosis is grim Code(s): I50.9 - HEART FAILURE, UNSPECIFIED Qualifiers: Congestive heart failure type: systolic Congestive heart failure chronicity: acute on chronic Qualified Code(s): I50.23 - Acute on chronic systolic (congestive) heart failure (2) Acute and chronic respiratory failure ([id number]) Assessment/Plan: -secondary to CHF stable at present -on supplemental oxygen Code(s): J96.20 - ACUTE AND CHR RESP FAILURE, UNSP W HYPOXIA OR HYPERCAPNIA Qualifiers: Respiratory failure complication: hypoxia Qualified Code(s): J96.21 - Acute and chronic respiratory failure with hypoxia (3) Acute on chronic renal insufficiency Assessment/Plan: -cardiorenal Code(s): N28.9 - DISORDER OF KIDNEY AND URETER, UNSPECIFIED N18.9 - CHRONIC KIDNEY DISEASE, UNSPECIFIED (4) Atrial fibrillation Assessment/Plan: -rate controlled -INR therapeutic -continue coumadin at decreased dose currently -daily INR checks Code(s): I48.91 - UNSPECIFIED ATRIAL FIBRILLATION Qualifiers: Atrial fibrillation type: chronic Qualified Code(s): I48.2 - Chronic atrial fibrillation (5) CAD (coronary artery disease) Assessment/Plan: -stable Code(s): I25.10 - ATHSCL HEART DISEASE OF [place] CORONARY ARTERY W/O ANG PCTRS (6) Fatigue Is made worse by hypokalemia, check MG and replace (7) Diabetes Assessment/Plan: -diabetic diet -continue SSI Code(s): E11.9 - TYPE 2 DIABETES MELLITUS WITHOUT COMPLICATIONS Qualifiers: Diabetes mellitus type: type 2 Diabetes mellitus complication status: with kidney complications Diabetes mellitus complication detail: with chronic kidney disease Chronic kidney disease stage: stage 4 (severe)
[2017-02-25] MEDS: WARFARIN NA 2 MG TABLET (UD) PO SCH (17:14)
[2017-02-25] MEDS ORDERED: PT OWN MED DRAWER 7, Y5N ONE (20:10)
[2017-02-25] MEDS: PHENYLEPHRINE 0.25%/STARCH 1 EACH SUPP.RECT RC SCH (21:24)
[2017-02-25] MEDS: ATORVASTATIN CA 40 MG TABLET (FP) PO SCH (21:24)
[2017-02-25] MEDS: ALBUTEROL SO4 0.083% IH SOL 2.5 MG/3 ML VIAL.NEB. NEB PRN (23:25)
[2017-02-26] MEDS: POTASSIUM CHLORIDE TABS 20 MEQ TABLET.ER (FP) PO SCH ×4 (05:57→21:55)
[2017-02-26] MEDS: FUROSEMIDE 100 MG/10 ML INJECTABLE VIAL IVPUSH SCH ×2 (05:58→14:49)
[2017-02-26] MEDS: INSULIN SLIDING SCALE (NOVOLOG) 1 VIAL SQ SCH ×4 (06:02→22:00)
--- NOTE | 2017-02-26 08:00 | PN ---
Progress Note, Physician Chief Complaint: chf History of Present Illness: sob the same--if gets out of bed and does something cough same no cp RUQ pain--denies exacerbation with meals, denies naus/vomiting very sleepy/drowsy this am ex cigs - Current Medication List Current Medications: Active Medications Acetaminophen (Tylenol -) 650 mg PO Q4H PRN PRN Reason: FEVER OR PAIN Last Admin: 02/25/17 17:50 Dose: 650 mg Albuterol Sulfate (Ventolin 0.083% Nebulizer Soln -) 1 amp NEB Q4H PRN PRN Reason: SHORT OF BREATH/WHEEZING Last Admin: 02/25/17 23:25 Dose: 1 amp Allopurinol (Zyloprim -) 100 mg PO DAILY [facility] Last Admin: 02/25/17 10:08 Dose: 100 mg Ascorbic Acid (Vitamin C -) 1,000 mg PO DAILY [facility] Last Admin: 02/25/17 10:08 Dose: 1,000 mg Atorvastatin Calcium (Lipitor -) 40 mg PO HS [facility] Last Admin: 02/25/17 21:24 Dose: 40 mg Bacitracin/Polymyxin B Sulfate (Polysporin Ointment -) 1 applic TP BID [facility] Last Admin: 02/25/17 21:26 Dose: 1 applic Budesonide/Formoterol Fumarate (Symbicort 160/4.5mcg -) 1 puff IH BID [facility] Last Admin: 02/25/17 21:25 Dose: 1 puff Bupropion HCl (Wellbutrin -) 75 mg PO DAILY [facility] Last Admin: 02/25/17 10:07 Dose: 75 mg Carvedilol (Coreg -) 6.25 mg PO BID [facility] Last Admin: 02/25/17 21:25 Dose: 6.25 mg Cholecalciferol (Vitamin D3 -) 1,000 unit PO DAILY [facility] Last Admin: 02/25/17 10:07 Dose: 1,000 unit Clopidogrel Bisulfate (Plavix -) 75 mg PO DAILY [facility] Last Admin: 02/25/17 10:07 Dose: 75 mg Docusate Sodium (Colace -) 100 mg PO BID [facility] Last Admin: 02/25/17 21:25 Dose: 100 mg Ferrous Sulfate (Feosol -) 325 mg PO Q48H [facility] Last Admin: 02/25/17 11:30 Dose: 325 mg Furosemide (Lasix Injection -) 100 mg IVPUSH BID@0600,1400 [facility] Last Admin: 02/26/17 05:58 Dose: 100 mg Milrinone Lactate/Dextrose (Milrinone 20mg/100ml Ivpb -) 100 mls @ 9.716 mls/ hr IVPB TITR [facility] PRN Reason: 0.35 MCG/KG/MIN Last Admin: 02/25/17 15:35 Dose: 9.716 mls/hr Insulin Aspart (Novolog Vial Sliding Scale -) 1 vial SQ ACHS [facility] PRN Reason: Protocol Last Admin: 02/26/17 06:02 Dose: Not Given Multivitamins/Minerals/Vitamin C (Tab-A-Vit -) 1 tab PO DAILY [facility] Last Admin: 02/25/17 10:07 Dose: 1 tab Ondansetron HCl (Zofran Injection) 4 mg IVPB Q6H PRN PRN Reason: NAUSEA Potassium Chloride (K-Dur -) 40 meq PO TID [facility] Last Admin: 02/26/17 05:57 Dose: 40 meq Ranitidine HCl (Zantac -) 75 mg PO DAILY [facility] Last Admin: 02/25/17 10:08 Dose: 75 mg Starch (Anusol Suppository -) 1 each RC HS [facility] Last Admin: 02/25/17 21:24 Dose: Not Given Tiotropium [place] (Spiriva -) 1 puff IH DAILY [facility] Last Admin: 02/25/17 10:10 Dose: 1 puff Warfarin Sodium (Coumadin -) 2 mg PO DAILY@1800 [facility] Last Admin: 02/25/17 17:14 Dose: 2 mg - Objective Vital Signs: Vital Signs Temperature 97.6 F 02/26/17 02:00 Pulse Rate 75 02/26/17 06:00 Respiratory Rate 20 02/26/17 06:00 Blood Pressure 127/73 02/26/17 06:00 O2 Sat by Pulse Oximetry (%) 93 L 02/25/17 22:00 Constitutional: Yes: No Distress, Calm Eyes: No: Sclera Icterus HENT: No: Nasal Congestion Cardiovascular: Yes: Regular Rate and Rhythm, JVD, S1, S2, Other (PMI non diplaced). No: Gallop, Murmur Respiratory: Yes: Diminished (decr bases). No: Accessory Muscle Use, Rales, Wheezes Gastrointestinal: Yes: Normal Bowel Sounds, Soft. No: Tenderness (incl RUQ, no rebound) Musculoskeletal: Yes: Other (No kyphosis) Extremities: No: Cold Edema: Yes (1+ L ankle) Integumentary: No: Jaundice Neurological: Yes: Oriented, Lethargy Psychiatric: No: Agitated Labs: CBC, BMP 02/25/17 05:35 INR, PTT INR 2.78 (0.82-1.09) H 02/25/17 05:35 - ....Imaging EKG: Other (tele: AF, V-P, NSVT x 7b) Assessment/Plan echo 05/2016: sev lve, global hk, sev dec lvef, mild rve, nl rv fcn, estefania, mild- mod mr, mv ring, tv ring, mild tr, mild pr, mild phtn, ivc mild dil cxr: chf a/p: 76 year old man with PMH of IDDM, COPD (O2 dependant) HTN, HLD, Afib (on coumadin), CAD s/p CABG 2012, end stage CHF with ICD placement (on milrinone pump), PVD, BPH here with sob. acute on chronic systolic CHF, end stage systolic heart failure s/p ICD, on home milrinone infusion: - here with sob/jose - was well diuresed at home to wt 202-204 with creat 2.1 and Na 151--torsemide 80 bid gradually downtitrated back to 40 bid - saw me last week with sob at baseline, but ongoing phlegmy cough--likely sec to advanced copd and NOT chf - developed acute incr sob in afternoon, after left my office for last appt, thinks wt was 207 that day - cxr here worsened, with perihilar edema pattern and RLL infiltrates likely chf (no other clinical signs of PNA) - initial wt 204 standing, up to 207 on HD 2 - suspect diet/fluid noncompliance may be trigger of chf here - cont milrinone at patient's home maintenance dose (on chronic infusion destination therapy)--0.35 mcg/kg/min. - cont home coreg. (no ALESSANDRA due to low bp's and labile creatinines; no Entresto for same reason) - recent office icd check with stable function - 02/17 unclear if sxs from chf or some URI/copd (productive cough). Will give trial of iv lasix 80 x1 today and monitor sxs, cr trend tomorrow to see if improving. - 02/18. Symptoms improving, creatinine improved after lasix 80 mg IV x 1 yesterday. Will continue daily dosing. - 02/19 Ongoing weight gain, will increase lasix to bid dosing--though pt refused 2nd dose due to late in day timing - note: pt gains wt rapidly at home when non-compliant with 1.5L daily fluid restriction ( supervises) and same here when fluid restriction not ordered/ implemented - 02/20: fluid restriction ordered, importance d/w'd RN (to inform assistant sales manager); wt up to 212 (target wt is 207 or less). bid lasix today. responds to metolazone reliably at home when wt rises so low threshold to give this if wt rises further tomorrow (hopefully he is not becoming IV diuretic dependent) - suspect loss of muscle mass over time, with new dry wt closer to 202-204 - 02/21 Significantly bothered by frequent urination. declines damian. Still symptomatic, minimal weight loss this morning. will give extra dose of metolazone this afternoon with pm lasix. -02/22: Cr stable, wt down a pound. Will cont iv lasix 100 bid and give metolazone 5 today as well. -02/23: cr stable, wt unchanged but pt reports slight improvement in sob. Will replete K. Cont iv lasix. -02/24: cr stable, wt improved today, less sob as well. Cont with lasix 100 iv bid, goal wt close to 203lbs -02/25: wt stalled at 207. cont iv lasix today and rpt metolazone 5mg, bp permitting. will cont iv lasix until objective signs of vol depletion ( hypotension, elev bun/creat) to better define dry wt, in hopes of avoiding ongoing freq hospitalizations -02/26: wt down 1 lb; renal fxn stable. rpt metolazone with lasix 100 iv bid today , incr KCL to aim for K 4.0 -d/w'd need to see chf specialist again, ? milrinone dosing can be adjusted --dr perea ([place]) has left so they will transfer care and do not want [place] ( she is to make appt with dr harden at [facility]) -if no further options per CHF specialist eval, and cannot keep him out of the hospital with more aggressive weight target, will have to discuss palliative care/home hospice with pt and RUQ pain: - no tenderness, no naus/vomiting, normal WBC count, no fever - LFTs normal 02/20 last--reorder - defer further evaluation, if indicated, to pmd afib - currently rate controlled on coreg - cont coumadin per INR VT: - intermittent brief runs of NSVT on tele, chronic finding on prior admits - has ICD - on max tolerated coreg dose - replete lytes prn (aggressive K repletion ordered) PVD - con't AC, statin. CAD s/p CABG - No anginal symptoms, no signs acs. Con't home ac, plavix, atorvastatin, coreg HTN: controlled on coreg HLD: con't statin. chu/CKD: - suspect cardiorenal syndrome, with renal fxn improving due to IV diuresis - renal fxn presently at baseline copd - per pulm/pmd
[2017-02-26 08:08] LABS: ANION GAP 9 (8-16); CALCIUM 9.7 mg/dL (8.5-10.1); CO2 37 mmol/L (21-32); CREATININE 1.7 mg/dL (0.7-1.3); GLUCOSE,RANDOM 143 mg/dL (74-106); MAGNESIUM 2.2 mg/dL (1.8-2.4)
[2017-02-26] MEDS ORDERED: PT OWN MED DRAWER 7, Y5N ONE (08:09)
[2017-02-26] MEDS: buPROPion HCL 75 MG TABLET PO SCH (09:17)
[2017-02-26] MEDS: ALLOPURINOL 100 MG TABLET (FP) PO SCH (09:17)
[2017-02-26] MEDS: DOCUSATE SODIUM 100 MG CAPSULE (FP) PO SCH ×2 (09:17→21:54)
[2017-02-26] MEDS: ASCORBIC ACID 500 MG TABLET (FP) PO SCH (09:17)
[2017-02-26] MEDS: MULTIVITAMINS (DAILY MVI) TABLET (FP) PO SCH (09:17)
[2017-02-26] MEDS: CARVEDILOL 6.25 MG TABLET (FP) PO SCH ×2 (09:17→21:54)
[2017-02-26] MEDS: CHOLECALCIFEROL (VITAMIN D3) 1,000 UNIT TABLET (FP) PO SCH (09:17)
[2017-02-26] MEDS: CLOPIDOGREL BISULFATE 75 MG TABLET (FP) PO SCH (09:17)
[2017-02-26] MEDS: RANITIDINE HCL 150 MG TABLET (FP) PO SCH (09:17)
[2017-02-26] MEDS: BUDESONIDE/FORMETEROL FUMARATE 160/4.5 mcg INHALER IH SCH ×2 (09:22→21:54)
[2017-02-26] MEDS: TIOTROPIUM BROMIDE 18 MCG/INH (DEVICE W/ 5 CAPSULES) IH SCH (09:23)
[2017-02-26] MEDS: MILRINONE 20MG/100ML IVPB - 100 ML IVPB SCH (11:52)
--- NOTE | 2017-02-26 12:34 | PN ---
Progress Note (short form) - Note Progress Note: PULMONARY SITTING ON SIDE OF BED EATING LUNCH HAS SOME MIDEPIGASTRIC DISCOMFORT AFEBRILE/VSS DISTENDED NECK VEINS DISTANT BREATH SOUNDS S1S2 OBESE SOFT EDEMA LOWER EXT LABS/MEDS/NOTES/IMAGING/MICRO REVIEWED Acute on Chronic Systolic Heart Failure end stage CAD s/p CABG COPD Chronic Hypoxic Respiratory Failure Atrial Fibrillation Acute on Chronic Renal Failure PAD BPH - continue lasix, milrinone - replete K+ - monitor urine output, creatinine - daily weights, I/Os - O2 to keep SpO2 >90% - rate controlled - continue anticoagulation - intermediate prognosis is poor Mark SEE MD
[2017-02-26 12:52] LABS: ALBUMIN 3.2 g/dl (3.4-5.0); BILIRUBIN,DIRECT 0.3 mg/dL (0.0-0.2); BILIRUBIN,TOTAL 0.7 mg/dL (0.2-1.0); TOT PROT 7.3 g/dl (6.4-8.2)
[2017-02-26 12:57] LABS: INR 2.52 (0.82-1.09); PROTHROMBIN TIME (PATIENT) 28.2 SEC (9.98-11.88)
[2017-02-26] MEDS ORDERED: METOLAZONE 5 MG TABLET PO ONE (13:30)
--- NOTE | 2017-02-26 16:50 | PN ---
Progress Note (short form) - Note Progress Note: SOB is improving Has mild RUQ pain No fever no constipation O/E Vital Signs Period Temp Pulse Resp BP Sys/Orantes Pulse Ox Last 24 Hr 97.1 F-98 F 74-77 18-20 111-127/64-80 93-95 Heart regular Lungs clear Abd soft slight RUQ tenderness+ Ext trace edema+ Current Medications Acetaminophen (Tylenol -) 650 mg PO Q4H PRN PRN Reason: FEVER OR PAIN Last Admin: 02/25/17 17:50 Dose: 650 mg Albuterol Sulfate (Ventolin 0.083% Nebulizer Soln -) 1 amp NEB Q4H PRN PRN Reason: SHORT OF BREATH/WHEEZING Last Admin: 02/25/17 23:25 Dose: 1 amp Allopurinol (Zyloprim -) 100 mg PO DAILY [facility] Last Admin: 02/26/17 09:17 Dose: 100 mg Ascorbic Acid (Vitamin C -) 1,000 mg PO DAILY [facility] Last Admin: 02/26/17 09:17 Dose: 1,000 mg Atorvastatin Calcium (Lipitor -) 40 mg PO HS [facility] Last Admin: 02/25/17 21:24 Dose: 40 mg Bacitracin/Polymyxin B Sulfate (Polysporin Ointment -) 1 applic TP BID [facility] Last Admin: 02/25/17 21:26 Dose: 1 applic Budesonide/Formoterol Fumarate (Symbicort 160/4.5mcg -) 1 puff IH BID [facility] Last Admin: 02/26/17 09:22 Dose: 1 puff Bupropion HCl (Wellbutrin -) 75 mg PO DAILY [facility] Last Admin: 02/26/17 09:17 Dose: 75 mg Carvedilol (Coreg -) 6.25 mg PO BID [facility] Last Admin: 02/26/17 09:17 Dose: 6.25 mg Cholecalciferol (Vitamin D3 -) 1,000 unit PO DAILY [facility] Last Admin: 02/26/17 09:17 Dose: 1,000 unit Clopidogrel Bisulfate (Plavix -) 75 mg PO DAILY [facility] Last Admin: 02/26/17 09:17 Dose: 75 mg Docusate Sodium (Colace -) 100 mg PO BID [facility] Last Admin: 02/26/17 09:17 Dose: 100 mg Ferrous Sulfate (Feosol -) 325 mg PO Q48H [facility] Last Admin: 02/25/17 11:30 Dose: 325 mg Furosemide (Lasix Injection -) 100 mg IVPUSH BID@0600,1400 [facility] Last Admin: 02/26/17 14:49 Dose: 100 mg Milrinone Lactate/Dextrose (Milrinone 20mg/100ml Ivpb -) 100 mls @ 9.716 mls/ hr IVPB TITR [facility] PRN Reason: 0.35 MCG/KG/MIN Last Admin: 02/26/17 11:52 Dose: 9.716 mls/hr Insulin Aspart (Novolog Vial Sliding Scale -) 1 vial SQ ACHS [facility] PRN Reason: Protocol Last Admin: 02/26/17 11:50 Dose: 4 units Multivitamins/Minerals/Vitamin C (Tab-A-Vit -) 1 tab PO DAILY [facility] Last Admin: 02/26/17 09:17 Dose: 1 tab Ondansetron HCl (Zofran Injection) 4 mg IVPB Q6H PRN PRN Reason: NAUSEA Potassium Chloride (K-Dur -) 40 meq PO QID [facility] Last Admin: 02/26/17 13:47 Dose: 40 meq Ranitidine HCl (Zantac -) 75 mg PO DAILY [facility] Last Admin: 02/26/17 09:17 Dose: 75 mg Starch (Anusol Suppository -) 1 each RC HS [facility] Last Admin: 02/25/17 21:24 Dose: Not Given Tiotropium [place] (Spiriva -) 1 puff IH DAILY [facility] Last Admin: 02/26/17 09:23 Dose: 1 puff Warfarin Sodium (Coumadin -) 2 mg PO DAILY@1800 [facility] Last Admin: 02/25/17 17:14 Dose: 2 mg Laboratory Results - last 24 hr 02/25/17 02/25/17 02/26/17 17:08 21:31 05:35 INR Sodium 142 Potassium 3.5 Chloride 96 L Carbon Dioxide 37 H Anion Gap 9 BUN 56 H Creatinine 1.7 H POC Glucometer 273 214 Random Glucose 143 H D Calcium 9.7 Magnesium 2.2 Total Bilirubin Direct Bilirubin AST ALT Alkaline Phosphatase Total Protein Albumin 02/26/17 02/26/17 02/26/17 05:56 11:45 12:00 INR Sodium Potassium Chloride Carbon Dioxide Anion Gap BUN Creatinine POC Glucometer 144 228 Random Glucose Calcium Magnesium Total Bilirubin 0.7 D Direct Bilirubin 0.3 H AST 27 ALT 26 Alkaline Phosphatase 149 H Total Protein 7.3 Albumin 3.2 L 02/26/17 12:00 INR 2.52 H Sodium Potassium Chloride Carbon Dioxide Anion Gap BUN Creatinine POC Glucometer Random Glucose Calcium Magnesium Total Bilirubin Direct Bilirubin AST ALT Alkaline Phosphatase Total Protein Albumin Assessment/Plan 1.RUQ pain check blood (1) CHF (congestive heart failure) Assessment/Plan: -end stage CHF, Has improved since yesterday , prognosis is grim Code(s): I50.9 - HEART FAILURE, UNSPECIFIED Qualifiers: Congestive heart failure type: systolic Congestive heart failure chronicity: acute on chronic Qualified Code(s): I50.23 - Acute on chronic systolic (congestive) heart failure (2) Acute and chronic respiratory failure ([id number]) Assessment/Plan: -secondary to CHF stable at present -on supplemental oxygen Code(s): J96.20 - ACUTE AND CHR RESP FAILURE, UNSP W HYPOXIA OR HYPERCAPNIA Qualifiers: Respiratory failure complication: hypoxia Qualified Code(s): J96.21 - Acute and chronic respiratory failure with hypoxia (3) Acute on chronic renal insufficiency Assessment/Plan: -cardiorenal Code(s): N28.9 - DISORDER OF KIDNEY AND URETER, UNSPECIFIED N18.9 - CHRONIC KIDNEY DISEASE, UNSPECIFIED (4) Atrial fibrillation Assessment/Plan: -rate controlled -INR therapeutic -continue coumadin at decreased dose currently -daily INR checks Code(s): I48.91 - UNSPECIFIED ATRIAL FIBRILLATION Qualifiers: Atrial fibrillation type: chronic Qualified Code(s): I48.2 - Chronic atrial fibrillation (5) CAD (coronary artery disease) Assessment/Plan: -stable Code(s): I25.10 - ATHSCL HEART DISEASE OF [place] CORONARY ARTERY W/O ANG PCTRS (6) Fatigue Is made worse by hypokalemia, check MG and replace (7) Diabetes Assessment/Plan: -diabetic diet -continue SSI Code(s): E11.9 - TYPE 2 DIABETES MELLITUS WITHOUT COMPLICATIONS Qualifiers: Diabetes mellitus type: type 2 Diabetes mellitus complication status: with kidney complications Diabetes mellitus complication detail: with chronic kidney disease Chronic kidney disease stage: stage 4 (severe)
[2017-02-26] MEDS: WARFARIN NA 2 MG TABLET (UD) PO SCH (17:09)
[2017-02-26] MEDS: BACITRACIN/POLYMYXIN B SULFATE 15 GM TUBE TP SCH ×3 (17:40→22:00)
[2017-02-26] MEDS: ATORVASTATIN CA 40 MG TABLET (FP) PO SCH (21:54)
[2017-02-26] MEDS: PHENYLEPHRINE 0.25%/STARCH 1 EACH SUPP.RECT RC SCH (22:00)
[2017-02-26] MEDS: ALBUTEROL SO4 0.083% IH SOL 2.5 MG/3 ML VIAL.NEB. NEB PRN (22:35)
[2017-02-27] MEDS: FUROSEMIDE 100 MG/10 ML INJECTABLE VIAL IVPUSH SCH ×2 (06:05→15:00)
[2017-02-27] MEDS: INSULIN SLIDING SCALE (NOVOLOG) 1 VIAL SQ SCH ×4 (06:06→22:10)
[2017-02-27 07:53] LABS: ALBUMIN 3.3 g/dl (3.4-5.0); ALK PHOS 142 U/L (45-117); ANION GAP 7 (8-16); BILIRUBIN,TOTAL 0.9 mg/dL (0.2-1.0); CALCIUM 9.4 mg/dL (8.5-10.1); CO2 38 mmol/L (21-32); CREATININE 1.8 mg/dL (0.7-1.3); GLUCOSE,RANDOM 162 mg/dL (74-106); SGOT/AST 21 U/L (15-37); SGPT/ALT 24 U/L (12-78); TOT PROT 7.3 g/dl (6.4-8.2)
[2017-02-27] MEDS ORDERED: METOLAZONE 5 MG TABLET PO ONE ×2 (08:36→14:15)
--- NOTE | 2017-02-27 08:36 | PN ---
Progress Note, Physician Chief Complaint: chf History of Present Illness: says no more sob with oob to bathroom cough improved no cp, palpit, leg swelling very upset at the prospect of remaining in the hospital longer to continue diuresing until dry weight defined with certainty - Current Medication List Current Medications: Active Medications Acetaminophen (Tylenol -) 650 mg PO Q4H PRN PRN Reason: FEVER OR PAIN Last Admin: 02/25/17 17:50 Dose: 650 mg Albuterol Sulfate (Ventolin 0.083% Nebulizer Soln -) 1 amp NEB Q4H PRN PRN Reason: SHORT OF BREATH/WHEEZING Last Admin: 02/26/17 22:35 Dose: 1 amp Allopurinol (Zyloprim -) 100 mg PO DAILY [facility] Last Admin: 02/26/17 09:17 Dose: 100 mg Ascorbic Acid (Vitamin C -) 1,000 mg PO DAILY [facility] Last Admin: 02/26/17 09:17 Dose: 1,000 mg Atorvastatin Calcium (Lipitor -) 40 mg PO HS [facility] Last Admin: 02/26/17 21:54 Dose: 40 mg Bacitracin/Polymyxin B Sulfate (Polysporin Ointment -) 1 applic TP BID [facility] Last Admin: 02/26/17 22:00 Dose: 1 applic Budesonide/Formoterol Fumarate (Symbicort 160/4.5mcg -) 1 puff IH BID [facility] Last Admin: 02/26/17 21:54 Dose: 1 puff Bupropion HCl (Wellbutrin -) 75 mg PO DAILY [facility] Last Admin: 02/26/17 09:17 Dose: 75 mg Carvedilol (Coreg -) 6.25 mg PO BID [facility] Last Admin: 02/26/17 21:54 Dose: 6.25 mg Cholecalciferol (Vitamin D3 -) 1,000 unit PO DAILY [facility] Last Admin: 02/26/17 09:17 Dose: 1,000 unit Clopidogrel Bisulfate (Plavix -) 75 mg PO DAILY [facility] Last Admin: 02/26/17 09:17 Dose: 75 mg Docusate Sodium (Colace -) 100 mg PO BID [facility] Last Admin: 02/26/17 21:54 Dose: 100 mg Ferrous Sulfate (Feosol -) 325 mg PO Q48H [facility] Last Admin: 02/25/17 11:30 Dose: 325 mg Furosemide (Lasix Injection -) 100 mg IVPUSH BID@0600,1400 [facility] Last Admin: 02/27/17 06:05 Dose: 100 mg Milrinone Lactate/Dextrose (Milrinone 20mg/100ml Ivpb -) 100 mls @ 9.716 mls/ hr IVPB TITR [facility] PRN Reason: 0.35 MCG/KG/MIN Last Admin: 02/26/17 11:52 Dose: 9.716 mls/hr Insulin Aspart (Novolog Vial Sliding Scale -) 1 vial SQ ACHS [facility] PRN Reason: Protocol Last Admin: 02/27/17 06:06 Dose: 2 units Multivitamins/Minerals/Vitamin C (Tab-A-Vit -) 1 tab PO DAILY [facility] Last Admin: 02/26/17 09:17 Dose: 1 tab Ondansetron HCl (Zofran Injection) 4 mg IVPB Q6H PRN PRN Reason: NAUSEA Potassium Chloride (K-Dur -) 40 meq PO QID [facility] Last Admin: 02/26/17 21:55 Dose: 40 meq Ranitidine HCl (Zantac -) 75 mg PO DAILY [facility] Last Admin: 02/26/17 09:17 Dose: 75 mg Starch (Anusol Suppository -) 1 each RC HS [facility] Last Admin: 02/26/17 22:00 Dose: Not Given Tiotropium [place] (Spiriva -) 1 puff IH DAILY [facility] Last Admin: 02/26/17 09:23 Dose: 1 puff Warfarin Sodium (Coumadin -) 2 mg PO DAILY@1800 [facility] Last Admin: 02/26/17 17:09 Dose: 2 mg - Objective Vital Signs: Vital Signs Temperature 97 F L 02/27/17 06:00 Pulse Rate 78 02/27/17 06:00 Respiratory Rate 20 02/27/17 06:00 Blood Pressure 126/70 02/27/17 06:00 O2 Sat by Pulse Oximetry (%) 97 02/26/17 20:35 Constitutional: Yes: No Distress, Calm Eyes: No: Sclera Icterus HENT: No: Nasal Congestion Cardiovascular: Yes: Regular Rate and Rhythm, JVD, S1, S2, Other (PMI non diplaced). No: Gallop, Murmur Respiratory: Yes: CTA Bilaterally. No: Accessory Muscle Use, Rales, Wheezes Gastrointestinal: Yes: Normal Bowel Sounds, Soft. No: Tenderness Musculoskeletal: Yes: Other (No kyphosis) Extremities: No: Cool Edema: Yes (1+ L ankle) Integumentary: No: Jaundice Neurological: Yes: Alert, Oriented (x3) Psychiatric: No: Agitated Labs: CBC, BMP 02/25/17 05:35 02/27/17 05:35 INR, PTT INR 2.52 (0.82-1.09) H 02/26/17 12:00 - ....Imaging EKG: Other (tele: AF, V-P; no VT) Assessment/Plan echo 05/2016: sev lve, global hk, sev dec lvef, mild rve, nl rv fcn, estefania, mild- mod mr, mv ring, tv ring, mild tr, mild pr, mild phtn, ivc mild dil cxr: chf a/p: 76 year old man with PMH of IDDM, COPD (O2 dependant) HTN, HLD, Afib (on coumadin), CAD s/p CABG 2012, end stage CHF with ICD placement (on milrinone pump), PVD, BPH here with sob. acute on chronic systolic CHF, end stage systolic heart failure s/p ICD, on home milrinone infusion: - here with sob/jose - was well diuresed at home to wt 202-204 with creat 2.1 and Na 151--torsemide 80 bid gradually downtitrated back to 40 bid - saw me last week with sob at baseline, but ongoing phlegmy cough--likely sec to advanced copd and NOT chf - developed acute incr sob in afternoon, after left my office for last appt, thinks wt was 207 that day - cxr here worsened, with perihilar edema pattern and RLL infiltrates likely chf (no other clinical signs of PNA) - initial wt 204 standing, up to 207 on HD 2 - suspect diet/fluid noncompliance may be trigger of chf here - cont milrinone at patient's home maintenance dose (on chronic infusion destination therapy)--0.35 mcg/kg/min. - cont home coreg. (no ALESSANDRA due to low bp's and labile creatinines; no Entresto for same reason) - recent office icd check with stable function - 02/17 unclear if sxs from chf or some URI/copd (productive cough). Will give trial of iv lasix 80 x1 today and monitor sxs, cr trend tomorrow to see if improving. - 02/18. Symptoms improving, creatinine improved after lasix 80 mg IV x 1 yesterday. Will continue daily dosing. 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 bid lasix today. responds to metolazone reliably at home when wt rises so low threshold to give this if wt rises further tomorrow (hopefully he is not becoming IV diuretic dependent) - suspect loss of muscle mass over time, with new dry wt closer to 202-204 - 02/21 Significantly bothered by frequent urination. declines damian. Still symptomatic, minimal weight loss this morning. will give extra dose of metolazone this afternoon with pm lasix. -02/22: Cr stable, wt down a pound. Will cont iv lasix 100 bid and give metolazone 5 today as well. -02/23: cr stable, wt unchanged but pt reports slight improvement in sob. Will replete K. Cont iv lasix. -02/24: cr stable, wt improved today, less sob as well. Cont with lasix 100 iv bid, goal wt close to 203lbs -02/25: wt stalled at 207. cont iv lasix today and rpt metolazone 5mg, bp permitting. will cont iv lasix until objective signs of vol depletion ( hypotension, elev bun/creat) to better define dry wt, in hopes of avoiding ongoing freq hospitalizations -02/26: wt down 1 lb; renal fxn stable. rpt metolazone with lasix 100 iv bid today , incr KCL to aim for K 4.0 -02/27: wt continues to decline 1 lb per day, (204 today), renal fxn stable-- advised same plan (lasix plus metolazone) to confidently define dry wt prior to discharge. pt very upset about staying here for this, even though i explained that he continues to frequently bounce back with chf despite best attempts to do this process with po torsemide as outpt. he states he will think about whether he is willing to stay, once comes later and he speaks with her. -d/w'd need to see chf specialist again, ? milrinone dosing can be adjusted --[place] perea ([place]) has left so they will transfer care and do not want [facility] ( she is to make appt with dr harden at [facility]) -if no further options per CHF specialist eval, and cannot keep him out of the hospital with more aggressive weight target, will have to discuss palliative care/home hospice with pt and RUQ pain: - no tenderness, no naus/vomiting, normal WBC count, no fever - LFTs normal 02/20 last--reorder - defer further evaluation, if indicated, to pmd afib - currently rate controlled on coreg - cont coumadin per INR VT: - intermittent brief runs of NSVT on tele, chronic finding on prior admits - has ICD - on max tolerated coreg dose - replete lytes prn (aggressive K repletion ordered) PVD - con't AC, statin. CAD s/p CABG - No anginal symptoms, no signs acs. Con't home ac, plavix, atorvastatin, coreg HTN: controlled on coreg HLD: con't statin. chu/CKD: - suspect cardiorenal syndrome, with renal fxn improving due to IV diuresis - renal fxn presently at baseline copd - per pulm/pmd
[2017-02-27] MEDS: ALLOPURINOL 100 MG TABLET (FP) PO SCH (09:20)
[2017-02-27] MEDS: CLOPIDOGREL BISULFATE 75 MG TABLET (FP) PO SCH (09:20)
[2017-02-27] MEDS: MULTIVITAMINS (DAILY MVI) TABLET (FP) PO SCH (09:20)
[2017-02-27] MEDS: ASCORBIC ACID 500 MG TABLET (FP) PO SCH (09:20)
[2017-02-27] MEDS: CARVEDILOL 6.25 MG TABLET (FP) PO SCH ×2 (09:20→22:13)
[2017-02-27] MEDS: buPROPion HCL 75 MG TABLET PO SCH (09:20)
[2017-02-27] MEDS: CHOLECALCIFEROL (VITAMIN D3) 1,000 UNIT TABLET (FP) PO SCH (09:20)
[2017-02-27] MEDS: DOCUSATE SODIUM 100 MG CAPSULE (FP) PO SCH ×2 (09:21→22:13)
[2017-02-27] MEDS: POTASSIUM CHLORIDE TABS 20 MEQ TABLET.ER (FP) PO SCH ×4 (09:21→22:13)
[2017-02-27] MEDS: RANITIDINE HCL 150 MG TABLET (FP) PO SCH (09:21)
[2017-02-27] MEDS: BUDESONIDE/FORMETEROL FUMARATE 160/4.5 mcg INHALER IH SCH ×2 (09:22→22:19)
[2017-02-27] MEDS: BACITRACIN/POLYMYXIN B SULFATE 15 GM TUBE TP SCH ×2 (09:23→22:20)
[2017-02-27] MEDS: TIOTROPIUM BROMIDE 18 MCG/INH (DEVICE W/ 5 CAPSULES) IH SCH (09:23)
[2017-02-27] MEDS: MILRINONE 20MG/100ML IVPB - 100 ML IVPB SCH ×2 (10:00→19:47)
[2017-02-27 10:36] LABS: INR 2.39 (0.82-1.09); PROTHROMBIN TIME (PATIENT) 26.8 SEC (9.98-11.88)
--- NOTE | 2017-02-27 10:36 | PN ---
Progress Note, Physician History of Present Illness: pulmonary alert,sitting up in bed,-resp distress - Current Medication List Current Medications: Active Medications Acetaminophen (Tylenol -) 650 mg PO Q4H PRN PRN Reason: FEVER OR PAIN Last Admin: 02/25/17 17:50 Dose: 650 mg Albuterol Sulfate (Ventolin 0.083% Nebulizer Soln -) 1 amp NEB Q4H PRN PRN Reason: SHORT OF BREATH/WHEEZING Last Admin: 02/26/17 22:35 Dose: 1 amp Allopurinol (Zyloprim -) 100 mg PO DAILY [facility] Last Admin: 02/27/17 09:20 Dose: 100 mg Ascorbic Acid (Vitamin C -) 1,000 mg PO DAILY [facility] Last Admin: 02/27/17 09:20 Dose: 1,000 mg Atorvastatin Calcium (Lipitor -) 40 mg PO HS [facility] Last Admin: 02/26/17 21:54 Dose: 40 mg Bacitracin/Polymyxin B Sulfate (Polysporin Ointment -) 1 applic TP BID [facility] Last Admin: 02/27/17 09:23 Dose: 1 applic Budesonide/Formoterol Fumarate (Symbicort 160/4.5mcg -) 1 puff IH BID [facility] Last Admin: 02/27/17 09:22 Dose: 1 puff Bupropion HCl (Wellbutrin -) 75 mg PO DAILY [facility] Last Admin: 02/27/17 09:20 Dose: 75 mg Carvedilol (Coreg -) 6.25 mg PO BID [facility] Last Admin: 02/27/17 09:20 Dose: 6.25 mg Cholecalciferol (Vitamin D3 -) 1,000 unit PO DAILY [facility] Last Admin: 02/27/17 09:20 Dose: 1,000 unit Clopidogrel Bisulfate (Plavix -) 75 mg PO DAILY [facility] Last Admin: 02/27/17 09:20 Dose: 75 mg Docusate Sodium (Colace -) 100 mg PO BID [facility] Last Admin: 02/27/17 09:21 Dose: 100 mg Ferrous Sulfate (Feosol -) 325 mg PO Q48H [facility] Last Admin: 02/25/17 11:30 Dose: 325 mg Furosemide (Lasix Injection -) 100 mg IVPUSH BID@0600,1400 [facility] Last Admin: 02/27/17 06:05 Dose: 100 mg Milrinone Lactate/Dextrose (Milrinone 20mg/100ml Ivpb -) 100 mls @ 9.716 mls/ hr IVPB TITR [facility] PRN Reason: 0.35 MCG/KG/MIN Last Admin: 02/26/17 11:52 Dose: 9.716 mls/hr Insulin Aspart (Novolog Vial Sliding Scale -) 1 vial SQ ACHS [facility] PRN Reason: Protocol Last Admin: 02/27/17 06:06 Dose: 2 units Multivitamins/Minerals/Vitamin C (Tab-A-Vit -) 1 tab PO DAILY [facility] Last Admin: 02/27/17 09:20 Dose: 1 tab Ondansetron HCl (Zofran Injection) 4 mg IVPB Q6H PRN PRN Reason: NAUSEA Potassium Chloride (K-Dur -) 40 meq PO QID [facility] Last Admin: 02/27/17 09:21 Dose: 40 meq Ranitidine HCl (Zantac -) 75 mg PO DAILY [facility] Last Admin: 02/27/17 09:21 Dose: 75 mg Starch (Anusol Suppository -) 1 each RC HS [facility] Last Admin: 02/26/17 22:00 Dose: Not Given Tiotropium [place] (Spiriva -) 1 puff IH DAILY [facility] Last Admin: 02/27/17 09:23 Dose: 1 puff Warfarin Sodium (Coumadin -) 2 mg PO DAILY@1800 [facility] Last Admin: 02/26/17 17:09 Dose: 2 mg - Objective Vital Signs: Vital Signs Temperature 98.2 F 02/27/17 08:00 Pulse Rate 72 02/27/17 08:00 Respiratory Rate 18 02/27/17 08:00 Blood Pressure 108/66 02/27/17 08:00 O2 Sat by Pulse Oximetry (%) 97 02/26/17 20:35 Constitutional: Yes: Well Nourished Eyes: Yes: WNL HENT: Yes: WNL Neck: Yes: WNL Cardiovascular: Yes: Pulse Irregular, S1, S2 Respiratory: Yes: Rales (des rales 1/3 up) Gastrointestinal: Yes: Normal Bowel Sounds, Soft Extremities: Yes: WNL Edema: LLE: Trace, RLE: Trace Labs: CBC, BMP 02/25/17 05:35 02/27/17 05:35 INR, PTT INR 2.52 (0.82-1.09) H 02/26/17 12:00 Problem List - Problems (1) CHF (congestive heart failure) Code(s): I50.9 - HEART FAILURE, UNSPECIFIED Qualifiers: Congestive heart failure type: systolic Congestive heart failure chronicity: acute on chronic Qualified Code(s): I50.23 - Acute on chronic systolic (congestive) heart failure (2) CKD (chronic kidney disease) Code(s): N18.9 - CHRONIC KIDNEY DISEASE, UNSPECIFIED Qualifiers: (3) AICD (automatic cardioverter/defibrillator) present Code(s): Z95.810 - PRESENCE OF AUTOMATIC (IMPLANTABLE) CARDIAC DEFIBRILLATOR (4) Acute and chronic respiratory failure ([id number]) Code(s): J96.20 - ACUTE AND CHR RESP FAILURE, UNSP W HYPOXIA OR HYPERCAPNIA Qualifiers: Respiratory failure complication: hypoxia Qualified Code(s): J96.21 - Acute and chronic respiratory failure with hypoxia (5) Acute on chronic renal insufficiency Code(s): N28.9 - DISORDER OF KIDNEY AND URETER, UNSPECIFIED N18.9 - CHRONIC KIDNEY DISEASE, UNSPECIFIED (6) Atrial fibrillation Code(s): I48.91 - UNSPECIFIED ATRIAL FIBRILLATION Qualifiers: Atrial fibrillation type: chronic Qualified Code(s): I48.2 - Chronic atrial fibrillation (7) CAD (coronary artery disease) Code(s): I25.10 - ATHSCL HEART DISEASE OF [place] CORONARY ARTERY W/O ANG PCTRS (8) COPD (chronic obstructive pulmonary disease) Code(s): J44.9 - CHRONIC OBSTRUCTIVE PULMONARY DISEASE, UNSPECIFIED (9) Cardiomyopathy Code(s): I42.9 - CARDIOMYOPATHY, UNSPECIFIED (10) Diabetes Code(s): E11.9 - TYPE 2 DIABETES MELLITUS WITHOUT COMPLICATIONS Qualifiers: Diabetes mellitus type: type 2 Diabetes mellitus complication status: with kidney complications Diabetes mellitus complication detail: with chronic kidney disease Chronic kidney disease stage: stage 4 (severe) (11) Dyspnea on exertion Code(s): R06.09 - OTHER FORMS OF DYSPNEA (12) Presence of permanent cardiac pacemaker Code(s): Z95.0 - PRESENCE OF CARDIAC PACEMAKER Assessment/Plan IMP ACUTE ON CHRONIC RESPIRATORY FAILURE IMPROVING DECOMPENASTED CHFIMPROVING SEVERE LV DYSFUNCTION S/P ICD ,ON MILRINONE DRIP ASHD S/P CABG ADVANCED COPD ON O2 AFIB ACUTE ON CKD PVD BPH PLAN CONTINUE IV LASIX O2 MILRINONE INHALED BRONCHODILATORS MONITOR LYTES ,RENAL FUNCTION DAILY WTS AC MONITOR INR DR MONTGOMERY Problem List - Problems (1) CHF (congestive heart failure) Code(s): I50.9 - HEART FAILURE, UNSPECIFIED Qualifiers: (2) CKD (chronic kidney disease) Code(s): N18.9 - CHRONIC KIDNEY DISEASE, UNSPECIFIED Qualifiers: (3) AICD (automatic cardioverter/defibrillator) present Code(s): Z95.810 - PRESENCE OF AUTOMATIC (IMPLANTABLE) CARDIAC DEFIBRILLATOR (4) Acute and chronic respiratory failure ([id number]) Code(s): J96.20 - ACUTE AND CHR RESP FAILURE, UNSP W HYPOXIA OR HYPERCAPNIA Qualifiers: Respiratory failure complication: hypoxia Qualified Code(s): J96.21 - Acute and chronic respiratory failure with hypoxia (5) Acute on chronic renal insufficiency Code(s): N28.9 - DISORDER OF KIDNEY AND URETER, UNSPECIFIED N18.9 - CHRONIC KIDNEY DISEASE, UNSPECIFIED (6) Atrial fibrillation Code(s): I48.91 - UNSPECIFIED ATRIAL FIBRILLATION Qualifiers: Atrial fibrillation type: chronic Qualified Code(s): I48.2 - Chronic atrial fibrillation (7) CAD (coronary artery disease) Code(s): I25.10 - ATHSCL HEART DISEASE OF [place] CORONARY ARTERY W/O ANG PCTRS (8) COPD (chronic obstructive pulmonary disease) Code(s): J44.9 - CHRONIC OBSTRUCTIVE PULMONARY DISEASE, UNSPECIFIED (9) Cardiomyopathy Code(s): I42.9 - CARDIOMYOPATHY, UNSPECIFIED (10) Diabetes Code(s): E11.9 - TYPE 2 DIABETES MELLITUS WITHOUT COMPLICATIONS Qualifiers: Diabetes mellitus type: type 2 Diabetes mellitus complication status: with kidney complications Diabetes mellitus complication detail: with chronic kidney disease Chronic kidney disease stage: stage 4 (severe) (11) Dyspnea on exertion Code(s): R06.09 - OTHER FORMS OF DYSPNEA (12) Presence of permanent cardiac pacemaker Code(s): Z95.0 - PRESENCE OF CARDIAC PACEMAKER
[2017-02-27] MEDS: ALBUTEROL SO4 0.083% IH SOL 2.5 MG/3 ML VIAL.NEB. NEB PRN (10:55)
[2017-02-27] MEDS: FERROUS SO4 325 MG TABLET (FP) PO SCH (11:24)
--- NOTE | 2017-02-27 15:34 | PN ---
Progress Note, Physician Chief Complaint: Mr Perez complains of being constipated but otherwise is without complaint. No cp, sob, n/v. Walking without dyspnea. - Current Medication List Current Medications: Active Medications Acetaminophen (Tylenol -) 650 mg PO Q4H PRN PRN Reason: FEVER OR PAIN Last Admin: 02/25/17 17:50 Dose: 650 mg Albuterol Sulfate (Ventolin 0.083% Nebulizer Soln -) 1 amp NEB Q4H PRN PRN Reason: SHORT OF BREATH/WHEEZING Last Admin: 02/27/17 10:55 Dose: 1 amp Allopurinol (Zyloprim -) 100 mg PO DAILY [facility] Last Admin: 02/27/17 09:20 Dose: 100 mg Ascorbic Acid (Vitamin C -) 1,000 mg PO DAILY [facility] Last Admin: 02/27/17 09:20 Dose: 1,000 mg Atorvastatin Calcium (Lipitor -) 40 mg PO HS [facility] Last Admin: 02/26/17 21:54 Dose: 40 mg Bacitracin/Polymyxin B Sulfate (Polysporin Ointment -) 1 applic TP BID [facility] Last Admin: 02/27/17 09:23 Dose: 1 applic Budesonide/Formoterol Fumarate (Symbicort 160/4.5mcg -) 1 puff IH BID [facility] Last Admin: 02/27/17 09:22 Dose: 1 puff Bupropion HCl (Wellbutrin -) 75 mg PO DAILY [facility] Last Admin: 02/27/17 09:20 Dose: 75 mg Carvedilol (Coreg -) 6.25 mg PO BID [facility] Last Admin: 02/27/17 09:20 Dose: 6.25 mg Cholecalciferol (Vitamin D3 -) 1,000 unit PO DAILY [facility] Last Admin: 02/27/17 09:20 Dose: 1,000 unit Clopidogrel Bisulfate (Plavix -) 75 mg PO DAILY [facility] Last Admin: 02/27/17 09:20 Dose: 75 mg Docusate Sodium (Colace -) 100 mg PO BID [facility] Last Admin: 02/27/17 09:21 Dose: 100 mg Ferrous Sulfate (Feosol -) 325 mg PO Q48H [facility] Last Admin: 02/27/17 11:24 Dose: 325 mg Furosemide (Lasix Injection -) 100 mg IVPUSH BID@0600,1400 [facility] Last Admin: 02/27/17 06:05 Dose: 100 mg Milrinone Lactate/Dextrose (Milrinone 20mg/100ml Ivpb -) 100 mls @ 9.716 mls/ hr IVPB TITR [facility] PRN Reason: 0.35 MCG/KG/MIN Last Admin: 02/27/17 10:00 Dose: 9.716 mls/hr Insulin Aspart (Novolog Vial Sliding Scale -) 1 vial SQ ACHS [facility] PRN Reason: Protocol Last Admin: 02/27/17 11:24 Dose: 2 units Multivitamins/Minerals/Vitamin C (Tab-A-Vit -) 1 tab PO DAILY [facility] Last Admin: 02/27/17 09:20 Dose: 1 tab Ondansetron HCl (Zofran Injection) 4 mg IVPB Q6H PRN PRN Reason: NAUSEA Potassium Chloride (K-Dur -) 40 meq PO QID [facility] Last Admin: 02/27/17 14:27 Dose: 40 meq Ranitidine HCl (Zantac -) 75 mg PO DAILY [facility] Last Admin: 02/27/17 09:21 Dose: 75 mg Starch (Anusol Suppository -) 1 each RC HS [facility] Last Admin: 02/26/17 22:00 Dose: Not Given Tiotropium [place] (Spiriva -) 1 puff IH DAILY [facility] Last Admin: 02/27/17 09:23 Dose: 1 puff Warfarin Sodium (Coumadin -) 3 mg PO DAILY@1800 [facility] - Objective Vital Signs: Vital Signs Temperature 98.2 F 02/27/17 08:00 Pulse Rate 75 02/27/17 10:55 Respiratory Rate 18 02/27/17 08:00 Blood Pressure 108/66 02/27/17 08:00 O2 Sat by Pulse Oximetry (%) 91 L 02/27/17 10:55 Constitutional: Yes: Well Nourished, No Distress, Calm Cardiovascular: Yes: Pulse Irregular. No: Tachycardia, Gallop, Murmur, Rub Respiratory: Yes: Regular, CTA Bilaterally, On Nasal O2. No: Rales, Rhonchi, Wheezes Gastrointestinal: Yes: Normal Bowel Sounds, Soft. No: Distention, Tenderness Extremities: Yes: Erythema Edema: Yes Edema: LLE: 1+, RLE: 1+ Labs: CBC, BMP 02/25/17 05:35 02/27/17 05:35 INR, PTT INR 2.39 (0.82-1.09) H 02/27/17 09:53 Problem List - Problems (1) CHF (congestive heart failure) Code(s): I50.9 - HEART FAILURE, UNSPECIFIED Qualifiers: Congestive heart failure type: systolic Congestive heart failure chronicity: acute on chronic Qualified Code(s): I50.23 - Acute on chronic systolic (congestive) heart failure (2) Acute and chronic respiratory failure (zbhyi-kv-lfowvld) Code(s): J96.20 - ACUTE AND CHR RESP FAILURE, UNSP W HYPOXIA OR HYPERCAPNIA Qualifiers: Respiratory failure complication: hypoxia Qualified Code(s): J96.21 - Acute and chronic respiratory failure with hypoxia (3) Acute on chronic renal insufficiency Code(s): N28.9 - DISORDER OF KIDNEY AND URETER, UNSPECIFIED N18.9 - CHRONIC KIDNEY DISEASE, UNSPECIFIED (4) Atrial fibrillation Code(s): I48.91 - UNSPECIFIED ATRIAL FIBRILLATION Qualifiers: Atrial fibrillation type: chronic Qualified Code(s): I48.2 - Chronic atrial fibrillation (5) CAD (coronary artery disease) Code(s): I25.10 - ATHSCL HEART DISEASE OF [place] CORONARY ARTERY W/O ANG PCTRS (6) COPD (chronic obstructive pulmonary disease) Code(s): J44.9 - CHRONIC OBSTRUCTIVE PULMONARY DISEASE, UNSPECIFIED (7) Diabetes Code(s): E11.9 - TYPE 2 DIABETES MELLITUS WITHOUT COMPLICATIONS Qualifiers: Diabetes mellitus type: type 2 Diabetes mellitus complication status: with kidney complications Diabetes mellitus complication detail: with chronic kidney disease Chronic kidney disease stage: stage 4 (severe) Assessment/Plan (1) CHF (congestive heart failure) Assessment/Plan: -end stage CHF, on milrinone -cardiology following and note reviewed -204 lbs today -continue lasix 100mg IV bid -given metolazone today Code(s): I50.9 - HEART FAILURE, UNSPECIFIED Qualifiers: Congestive heart failure type: systolic Congestive heart failure chronicity: acute on chronic Qualified Code(s): I50.23 - Acute on chronic systolic (congestive) heart failure (2) Acute and chronic respiratory failure ([id number]) Assessment/Plan: -secondary to CHF exacerbation -continue diuresis -on supplemental oxygen Code(s): J96.20 - ACUTE AND CHR RESP FAILURE, UNSP W HYPOXIA OR HYPERCAPNIA Qualifiers: Respiratory failure complication: hypoxia Qualified Code(s): J96.21 - Acute and chronic respiratory failure with hypoxia (3) Acute on chronic renal insufficiency Assessment/Plan: -cardiorenal -at baseline with diuresis Code(s): N28.9 - DISORDER OF KIDNEY AND URETER, UNSPECIFIED N18.9 - CHRONIC KIDNEY DISEASE, UNSPECIFIED (4) Atrial fibrillation Assessment/Plan: -rate controlled -INR therapeutic -will increase to 3mg so it does not drop too low Code(s): I48.91 - UNSPECIFIED ATRIAL FIBRILLATION Qualifiers: Atrial fibrillation type: chronic Qualified Code(s): I48.2 - Chronic atrial fibrillation (5) CAD (coronary artery disease) Assessment/Plan: -quiescent -cardiology following -continue home regimen Code(s): I25.10 - ATHSCL HEART DISEASE OF [place] CORONARY ARTERY W/O ANG PCTRS (6) COPD (chronic obstructive pulmonary disease) Assessment/Plan: -continue current management -pulmonary following -chronic respiratory failure secondary to CHF Code(s): J44.9 - CHRONIC OBSTRUCTIVE PULMONARY DISEASE, UNSPECIFIED (7) Diabetes Assessment/Plan: -diabetic diet -continue SSI Code(s): E11.9 - TYPE 2 DIABETES MELLITUS WITHOUT COMPLICATIONS Qualifiers: Diabetes mellitus type: type 2 Diabetes mellitus complication status: with kidney complications Diabetes mellitus complication detail: with chronic kidney disease Chronic kidney disease stage: stage 4 (severe)
[2017-02-27] MEDS: WARFARIN NA 2 MG TABLET (UD) PO SCH (17:29)
[2017-02-27] MEDS ORDERED: ALBUTEROL SO4 0.083% IH SOL 2.5 MG/3 ML VIAL.NEB. NEB ONE (22:04)
[2017-02-27] MEDS: PHENYLEPHRINE 0.25%/STARCH 1 EACH SUPP.RECT RC SCH (22:12)
[2017-02-27] MEDS: ATORVASTATIN CA 40 MG TABLET (FP) PO SCH (22:13)
[2017-02-27] MEDS: POLYETHYLENE GLYCOL 3350 119 GM BTL PO SCH (22:19)
[2017-02-28] MEDS: INSULIN SLIDING SCALE (NOVOLOG) 1 VIAL SQ SCH ×4 (06:13→21:33)
[2017-02-28] MEDS: FUROSEMIDE 100 MG/10 ML INJECTABLE VIAL IVPUSH SCH ×2 (06:14→14:29)
[2017-02-28] MEDS: MILRINONE 20MG/100ML IVPB - 100 ML IVPB SCH ×2 (06:52→17:16)
[2017-02-28 07:41] LABS: BASOPHIL 0.4 % (0-2.0); EOSINOPHIL 1.5 % (0-4.5); MCH 26.5 pg (25.7-33.7); MCHC 32.4 g/dl (32.0-35.9); MEAN CELL VOLUME 81.8 fl (80-96); MEAN PLT VOLUME 8.2 fl (7.5-11.1); NEUTROPHILS 72.5 % (42.8-82.8); PLATELET COUNT 168 K/MM3 (134-434); RDW 18.7 % (11.9-15.9)
[2017-02-28 08:13] LABS: INR 2.1 (0.82-1.09); PROTHROMBIN TIME (PATIENT) 23.4 SEC (9.98-11.88)
[2017-02-28 08:22] LABS: ANION GAP 8 (8-16); CALCIUM 9.6 mg/dL (8.5-10.1); CO2 39 mmol/L (21-32); GLUCOSE,RANDOM 216 mg/dL (74-106); MAGNESIUM 2.3 mg/dL (1.8-2.4); PHOSPHOROUS 2.8 mg/dL (2.5-4.9)
[2017-02-28 08:23] LABS: CREATININE 1.8 mg/dL (0.7-1.3)
[2017-02-28] MEDS: MULTIVITAMINS (DAILY MVI) TABLET (FP) PO SCH (09:32)
[2017-02-28] MEDS: CHOLECALCIFEROL (VITAMIN D3) 1,000 UNIT TABLET (FP) PO SCH (09:32)
[2017-02-28] MEDS: CLOPIDOGREL BISULFATE 75 MG TABLET (FP) PO SCH (09:32)
[2017-02-28] MEDS: ASCORBIC ACID 500 MG TABLET (FP) PO SCH (09:32)
[2017-02-28] MEDS: RANITIDINE HCL 150 MG TABLET (FP) PO SCH (09:32)
[2017-02-28] MEDS: buPROPion HCL 75 MG TABLET PO SCH (09:32)
[2017-02-28] MEDS: DOCUSATE SODIUM 100 MG CAPSULE (FP) PO SCH ×2 (09:33→21:32)
[2017-02-28] MEDS: CARVEDILOL 6.25 MG TABLET (FP) PO SCH ×2 (09:33→21:33)
[2017-02-28] MEDS: POTASSIUM CHLORIDE TABS 20 MEQ TABLET.ER (FP) PO SCH ×4 (09:33→21:33)
[2017-02-28] MEDS: ALLOPURINOL 100 MG TABLET (FP) PO SCH (09:33)
--- NOTE | 2017-02-28 09:35 | PN ---
Progress Note, Physician History of Present Illness: pulmonary alert,sitting up in bed comfortable,-resp distress. wt 203.8 - Current Medication List Current Medications: Active Medications Acetaminophen (Tylenol -) 650 mg PO Q4H PRN PRN Reason: FEVER OR PAIN Last Admin: 02/25/17 17:50 Dose: 650 mg Allopurinol (Zyloprim -) 100 mg PO DAILY [facility] Last Admin: 02/27/17 09:20 Dose: 100 mg Ascorbic Acid (Vitamin C -) 1,000 mg PO DAILY [facility] Last Admin: 02/27/17 09:20 Dose: 1,000 mg Atorvastatin Calcium (Lipitor -) 40 mg PO HS [facility] Last Admin: 02/27/17 22:13 Dose: 40 mg Bacitracin/Polymyxin B Sulfate (Polysporin Ointment -) 1 applic TP BID [facility] Last Admin: 02/27/17 22:20 Dose: Not Given Budesonide/Formoterol Fumarate (Symbicort 160/4.5mcg -) 1 puff IH BID [facility] Last Admin: 02/27/17 22:19 Dose: 1 puff Bupropion HCl (Wellbutrin -) 75 mg PO DAILY [facility] Last Admin: 02/27/17 09:20 Dose: 75 mg Carvedilol (Coreg -) 6.25 mg PO BID [facility] Last Admin: 02/27/17 22:13 Dose: 6.25 mg Cholecalciferol (Vitamin D3 -) 1,000 unit PO DAILY [facility] Last Admin: 02/27/17 09:20 Dose: 1,000 unit Clopidogrel Bisulfate (Plavix -) 75 mg PO DAILY [facility] Last Admin: 02/27/17 09:20 Dose: 75 mg Docusate Sodium (Colace -) 100 mg PO BID [facility] Last Admin: 02/27/17 22:13 Dose: 100 mg Ferrous Sulfate (Feosol -) 325 mg PO Q48H [facility] Last Admin: 02/27/17 11:24 Dose: 325 mg Furosemide (Lasix Injection -) 100 mg IVPUSH BID@0600,1400 [facility] Last Admin: 02/28/17 06:14 Dose: 100 mg Milrinone Lactate/Dextrose (Milrinone 20mg/100ml Ivpb -) 100 mls @ 9.716 mls/ hr IVPB TITR [facility] PRN Reason: 0.35 MCG/KG/MIN Last Admin: 02/28/17 06:52 Dose: 9.716 mls/hr Insulin Aspart (Novolog Vial Sliding Scale -) 1 vial SQ ACHS [facility] PRN Reason: Protocol Last Admin: 02/28/17 06:13 Dose: 2 units Multivitamins/Minerals/Vitamin C (Tab-A-Vit -) 1 tab PO DAILY [facility] Last Admin: 02/27/17 09:20 Dose: 1 tab Ondansetron HCl (Zofran Injection) 4 mg IVPB Q6H PRN PRN Reason: NAUSEA Polyethylene Glycol (Miralax (For Daily Use) -) 17 gm PO BID [facility] Last Admin: 02/27/17 22:19 Dose: Not Given Potassium Chloride (K-Dur -) 40 meq PO QID [facility] Last Admin: 02/27/17 22:13 Dose: 40 meq Ranitidine HCl (Zantac -) 75 mg PO DAILY [facility] Last Admin: 02/27/17 09:21 Dose: 75 mg Starch (Anusol Suppository -) 1 each RC HS [facility] Last Admin: 02/27/17 22:12 Dose: Not Given Tiotropium [place] (Spiriva -) 1 puff IH DAILY [facility] Last Admin: 02/27/17 09:23 Dose: 1 puff Warfarin Sodium (Coumadin -) 3 mg PO DAILY@1800 [facility] Last Admin: 02/27/17 17:29 Dose: 3 mg - Objective Vital Signs: Vital Signs Temperature 98.4 F 02/28/17 08:15 Pulse Rate 74 02/28/17 08:15 Respiratory Rate 18 02/28/17 08:15 Blood Pressure 122/68 02/28/17 08:15 O2 Sat by Pulse Oximetry (%) 95 02/27/17 21:00 Constitutional: Yes: Well Nourished, Calm Eyes: Yes: WNL HENT: Yes: WNL Neck: Yes: WNL Cardiovascular: Yes: Pulse Irregular, S1, S2 Respiratory: Yes: Rales (bibasilar rales) Gastrointestinal: Yes: Normal Bowel Sounds, Soft Extremities: Yes: WNL Edema: Yes Labs: CBC, BMP 02/28/17 05:48 02/28/17 05:48 INR, PTT INR 2.10 (0.82-1.09) H 02/28/17 05:48 Problem List - Problems (1) CHF (congestive heart failure) Code(s): I50.9 - HEART FAILURE, UNSPECIFIED Qualifiers: Congestive heart failure type: systolic Congestive heart failure chronicity: acute on chronic Qualified Code(s): I50.23 - Acute on chronic systolic (congestive) heart failure (2) CKD (chronic kidney disease) Code(s): N18.9 - CHRONIC KIDNEY DISEASE, UNSPECIFIED Qualifiers: (3) AICD (automatic cardioverter/defibrillator) present Code(s): Z95.810 - PRESENCE OF AUTOMATIC (IMPLANTABLE) CARDIAC DEFIBRILLATOR (4) Acute and chronic respiratory failure (teufh-ng-iqqnhnq) Code(s): J96.20 - ACUTE AND CHR RESP FAILURE, UNSP W HYPOXIA OR HYPERCAPNIA Qualifiers: Respiratory failure complication: hypoxia Qualified Code(s): J96.21 - Acute and chronic respiratory failure with hypoxia (5) Acute on chronic renal insufficiency Code(s): N28.9 - DISORDER OF KIDNEY AND URETER, UNSPECIFIED N18.9 - CHRONIC KIDNEY DISEASE, UNSPECIFIED (6) Atrial fibrillation Code(s): I48.91 - UNSPECIFIED ATRIAL FIBRILLATION Qualifiers: Atrial fibrillation type: chronic Qualified Code(s): I48.2 - Chronic atrial fibrillation (7) CAD (coronary artery disease) Code(s): I25.10 - ATHSCL HEART DISEASE OF [place] CORONARY ARTERY W/O ANG PCTRS (8) COPD (chronic obstructive pulmonary disease) Code(s): J44.9 - CHRONIC OBSTRUCTIVE PULMONARY DISEASE, UNSPECIFIED (9) Cardiomyopathy Code(s): I42.9 - CARDIOMYOPATHY, UNSPECIFIED (10) Diabetes Code(s): E11.9 - TYPE 2 DIABETES MELLITUS WITHOUT COMPLICATIONS Qualifiers: Diabetes mellitus type: type 2 Diabetes mellitus complication status: with kidney complications Diabetes mellitus complication detail: with chronic kidney disease Chronic kidney disease stage: stage 4 (severe) (11) Dyspnea on exertion Code(s): R06.09 - OTHER FORMS OF DYSPNEA (12) Presence of permanent cardiac pacemaker Code(s): Z95.0 - PRESENCE OF CARDIAC PACEMAKER Assessment/Plan IMP ACUTE ON CHRONIC RESPIRATORY FAILURE IMPROVING DECOMPENSATED CHF IMPROVING SEVERE LV DYSFUNCTION S/P ICD ,ON MILRINONE DRIP ASHD S/P CABG ADVANCED COPD ON O2 AFIB ACUTE ON CKD PVD BPH PLAN CONTINUE IV LASIX S PER CARDIOLOGY O2 MILRINONE INHALED BRONCHODILATORS MONITOR LYTES ,RENAL FUNCTION DAILY WTS AC MONITOR INR DR MONTGOMERY Problem List - Problems (1) CHF (congestive heart failure) Code(s): I50.9 - HEART FAILURE, UNSPECIFIED Qualifiers: (2) CKD (chronic kidney disease) Code(s): N18.9 - CHRONIC KIDNEY DISEASE, UNSPECIFIED Qualifiers: (3) AICD (automatic cardioverter/defibrillator) present Code(s): Z95.810 - PRESENCE OF AUTOMATIC (IMPLANTABLE) CARDIAC DEFIBRILLATOR (4) Acute and chronic respiratory failure ([id number]-lacbazk) Code(s): J96.20 - ACUTE AND CHR RESP FAILURE, UNSP W HYPOXIA OR HYPERCAPNIA Qualifiers: Respiratory failure complication: hypoxia Qualified Code(s): J96.21 - Acute and chronic respiratory failure with hypoxia (5) Acute on chronic renal insufficiency Code(s): N28.9 - DISORDER OF KIDNEY AND URETER, UNSPECIFIED N18.9 - CHRONIC KIDNEY DISEASE, UNSPECIFIED (6) Atrial fibrillation Code(s): I48.91 - UNSPECIFIED ATRIAL FIBRILLATION Qualifiers: Atrial fibrillation type: chronic Qualified Code(s): I48.2 - Chronic atrial fibrillation (7) CAD (coronary artery disease) Code(s): I25.10 - ATHSCL HEART DISEASE OF [place] CORONARY ARTERY W/O ANG PCTRS (8) COPD (chronic obstructive pulmonary disease) Code(s): J44.9 - CHRONIC OBSTRUCTIVE PULMONARY DISEASE, UNSPECIFIED (9) Cardiomyopathy Code(s): I42.9 - CARDIOMYOPATHY, UNSPECIFIED (10) Diabetes Code(s): E11.9 - TYPE 2 DIABETES MELLITUS WITHOUT COMPLICATIONS Qualifiers: Diabetes mellitus type: type 2 Diabetes mellitus complication status: with kidney complications Diabetes mellitus complication detail: with chronic kidney disease Chronic kidney disease stage: stage 4 (severe) (11) Dyspnea on exertion Code(s): R06.09 - OTHER FORMS OF DYSPNEA (12) Presence of permanent cardiac pacemaker Code(s): Z95.0 - PRESENCE OF CARDIAC PACEMAKER
--- NOTE | 2017-02-28 09:48 | PN ---
Progress Note, Physician Chief Complaint: chf History of Present Illness: no sob oob to BR. no more cough no leg swelling no cp, palpit ex cigs - Current Medication List Current Medications: Active Medications Acetaminophen (Tylenol -) 650 mg PO Q4H PRN PRN Reason: FEVER OR PAIN Last Admin: 02/25/17 17:50 Dose: 650 mg Allopurinol (Zyloprim -) 100 mg PO DAILY [facility] Last Admin: 02/27/17 09:20 Dose: 100 mg Ascorbic Acid (Vitamin C -) 1,000 mg PO DAILY [facility] Last Admin: 02/27/17 09:20 Dose: 1,000 mg Atorvastatin Calcium (Lipitor -) 40 mg PO HS [facility] Last Admin: 02/27/17 22:13 Dose: 40 mg Bacitracin/Polymyxin B Sulfate (Polysporin Ointment -) 1 applic TP BID [facility] Last Admin: 02/27/17 22:20 Dose: Not Given Budesonide/Formoterol Fumarate (Symbicort 160/4.5mcg -) 1 puff IH BID [facility] Last Admin: 02/27/17 22:19 Dose: 1 puff Bupropion HCl (Wellbutrin -) 75 mg PO DAILY [facility] Last Admin: 02/27/17 09:20 Dose: 75 mg Carvedilol (Coreg -) 6.25 mg PO BID [facility] Last Admin: 02/27/17 22:13 Dose: 6.25 mg Cholecalciferol (Vitamin D3 -) 1,000 unit PO DAILY [facility] Last Admin: 02/27/17 09:20 Dose: 1,000 unit Clopidogrel Bisulfate (Plavix -) 75 mg PO DAILY [facility] Last Admin: 02/27/17 09:20 Dose: 75 mg Docusate Sodium (Colace -) 100 mg PO BID [facility] Last Admin: 02/27/17 22:13 Dose: 100 mg Ferrous Sulfate (Feosol -) 325 mg PO Q48H [facility] Last Admin: 02/27/17 11:24 Dose: 325 mg Furosemide (Lasix Injection -) 100 mg IVPUSH BID@0600,1400 [facility] Last Admin: 02/28/17 06:14 Dose: 100 mg Milrinone Lactate/Dextrose (Milrinone 20mg/100ml Ivpb -) 100 mls @ 9.716 mls/ hr IVPB TITR [facility] PRN Reason: 0.35 MCG/KG/MIN Last Admin: 02/28/17 06:52 Dose: 9.716 mls/hr Insulin Aspart (Novolog Vial Sliding Scale -) 1 vial SQ ACHS [facility] PRN Reason: Protocol Last Admin: 02/28/17 06:13 Dose: 2 units Multivitamins/Minerals/Vitamin C (Tab-A-Vit -) 1 tab PO DAILY [facility] Last Admin: 02/27/17 09:20 Dose: 1 tab Ondansetron HCl (Zofran Injection) 4 mg IVPB Q6H PRN PRN Reason: NAUSEA Polyethylene Glycol (Miralax (For Daily Use) -) 17 gm PO BID [facility] Last Admin: 02/27/17 22:19 Dose: Not Given Potassium Chloride (K-Dur -) 40 meq PO QID [facility] Last Admin: 02/27/17 22:13 Dose: 40 meq Ranitidine HCl (Zantac -) 75 mg PO DAILY [facility] Last Admin: 02/27/17 09:21 Dose: 75 mg Starch (Anusol Suppository -) 1 each RC HS [facility] Last Admin: 02/27/17 22:12 Dose: Not Given Tiotropium [place] (Spiriva -) 1 puff IH DAILY [facility] Last Admin: 02/27/17 09:23 Dose: 1 puff Warfarin Sodium (Coumadin -) 3 mg PO DAILY@1800 [facility] Last Admin: 02/27/17 17:29 Dose: 3 mg - Objective Vital Signs: Vital Signs Temperature 98.4 F 02/28/17 08:15 Pulse Rate 74 02/28/17 08:15 Respiratory Rate 18 02/28/17 08:15 Blood Pressure 122/68 02/28/17 08:15 O2 Sat by Pulse Oximetry (%) 95 02/27/17 21:00 Constitutional: Yes: No Distress, Calm Eyes: No: Sclera Icterus HENT: No: Nasal Congestion Cardiovascular: Yes: Regular Rate and Rhythm, S1, S2, Other (PMI non diplaced). No: Gallop, Murmur Respiratory: Yes: CTA Bilaterally, Wheezes (bases). No: Accessory Muscle Use, Rales Gastrointestinal: Yes: Normal Bowel Sounds, Soft. 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 acute on chronic systolic CHF, end stage systolic heart failure s/p ICD, on home milrinone infusion: - here with sob/jose - was well diuresed at home to wt 202-204 with creat 2.1 and Na 151--torsemide 80 bid gradually downtitrated back to 40 bid - saw me last week with sob at baseline, but ongoing phlegmy cough--likely sec to advanced copd and NOT chf - developed acute incr sob in afternoon, after left my office for last appt, thinks wt was 207 that day - cxr here worsened, with perihilar edema pattern and RLL infiltrates likely chf (no other clinical signs of PNA) - initial wt 204 standing, up to 207 on HD 2 - suspect diet/fluid noncompliance may be trigger of chf here - cont milrinone at patient's home maintenance dose (on chronic infusion destination therapy)--0.35 mcg/kg/min. - cont home coreg. (no ALESSANDRA due to low bp's and labile creatinines; no Entresto for same reason) - recent office icd check with stable function - 02/17 unclear if sxs from chf or some URI/copd (productive cough). Will give trial of iv lasix 80 x1 today and monitor sxs, cr trend tomorrow to see if improving. - 02/18. Symptoms improving, creatinine improved after lasix 80 mg IV x 1 yesterday. Will continue daily dosing. - 02/19 Ongoing weight gain, will increase lasix to bid dosing--though pt refused 2nd dose due to late in day timing - note: pt gains wt rapidly at home when non-compliant with 1.5L daily fluid restriction ( supervises) and same here when fluid restriction not ordered/ implemented - 02/20: fluid restriction ordered, importance d/w'd RN (to inform driller's assistant); wt up to 212 (target wt is 207 or less). bid lasix today. responds to metolazone reliably at home when wt rises so low threshold to give this if wt rises further tomorrow (hopefully he is not becoming IV diuretic dependent) - suspect loss of muscle mass over time, with new dry wt closer to 202-204 - 02/21 Significantly bothered by frequent urination. declines damian. Still symptomatic, minimal weight loss this morning. will give extra dose of metolazone this afternoon with pm lasix. -02/22: Cr stable, wt down a pound. Will cont iv lasix 100 bid and give metolazone 5 today as well. -02/23: cr stable, wt unchanged but pt reports slight improvement in sob. Will replete K. Cont iv lasix. -02/24: cr stable, wt improved today, less sob as well. Cont with lasix 100 iv bid, goal wt close to 203lbs -02/25: wt stalled at 207. cont iv lasix today and rpt metolazone 5mg, bp permitting. will cont iv lasix until objective signs of vol depletion ( hypotension, elev bun/creat) to better define dry wt, in hopes of avoiding ongoing freq hospitalizations -02/26: wt down 1 lb; renal fxn stable. rpt metolazone with lasix 100 iv bid today , incr KCL to aim for K 4.0 -02/27: wt continues to decline 1 lb per day, (204 today), renal fxn stable-- advised same plan (lasix plus metolazone) to confidently define dry wt prior to discharge. pt very upset about staying here for this, even though i explained that he continues to frequently bounce back with chf despite best attempts to do this process with po torsemide as outpt. -02/28: wt down 203, renal fxn stable. i do not feel we have defined his (new?) dry wt yet. however unclear how long pt is willing to stay in hospital. if willing, would repeat lasix 100mg IV bid today plus metolazone 5mg x 1 -d/w'd need to see chf specialist again, ? milrinone dosing can be adjusted --dr perea ([facility]) has left so they will transfer care and do not want [facility] ( she is to make appt with dr harden at [facility]) -if no further options per CHF specialist eval, and cannot keep him out of the hospital with more aggressive weight target, will have to discuss palliative care/home hospice with pt and RUQ pain: - no tenderness, no naus/vomiting, normal WBC count, no fever - LFTs normal 02/20 last--reorder - defer further evaluation, if indicated, to pmd afib - currently rate controlled on coreg - cont coumadin per INR VT: - intermittent brief runs of NSVT on tele, chronic finding on prior admits - has ICD - on max tolerated coreg dose - replete lytes prn (aggressive K repletion ordered) PVD - con't AC, statin. CAD s/p CABG - No anginal symptoms, no signs acs. Con't home ac, plavix, atorvastatin, coreg HTN: controlled on coreg HLD: con't statin. chu/CKD: - suspect cardiorenal syndrome, with renal fxn improving due to IV diuresis - renal fxn presently at baseline copd - per pulm/pmd
[2017-02-28] MEDS: BUDESONIDE/FORMETEROL FUMARATE 160/4.5 mcg INHALER IH SCH ×2 (09:50→21:35)
[2017-02-28] MEDS: BACITRACIN/POLYMYXIN B SULFATE 15 GM TUBE TP SCH (09:50)
[2017-02-28] MEDS: TIOTROPIUM BROMIDE 18 MCG/INH (DEVICE W/ 5 CAPSULES) IH SCH (09:50)
[2017-02-28] MEDS: POLYETHYLENE GLYCOL 3350 119 GM BTL PO SCH ×2 (09:51→21:34)
[2017-02-28] MEDS ORDERED: METOLAZONE 5 MG TABLET PO ONE ×2 (10:15→14:00)
--- NOTE | 2017-02-28 10:37 | PN ---
Progress Note, Physician History of Present Illness: Notes breathing feeling OK today, but has a skin tear on left leg. Continues to receive bid lasix IV - Current Medication List Current Medications: Active Medications Acetaminophen (Tylenol -) 650 mg PO Q4H PRN PRN Reason: FEVER OR PAIN Last Admin: 02/25/17 17:50 Dose: 650 mg Allopurinol (Zyloprim -) 100 mg PO DAILY [facility] Last Admin: 02/28/17 09:33 Dose: 100 mg Ascorbic Acid (Vitamin C -) 1,000 mg PO DAILY [facility] Last Admin: 02/28/17 09:32 Dose: 1,000 mg Atorvastatin Calcium (Lipitor -) 40 mg PO HS [facility] Last Admin: 02/27/17 22:13 Dose: 40 mg Budesonide/Formoterol Fumarate (Symbicort 160/4.5mcg -) 1 puff IH BID [facility] Last Admin: 02/28/17 09:50 Dose: 1 puff Bupropion HCl (Wellbutrin -) 75 mg PO DAILY [facility] Last Admin: 02/28/17 09:32 Dose: 75 mg Carvedilol (Coreg -) 6.25 mg PO BID [facility] Last Admin: 02/28/17 09:33 Dose: 6.25 mg Cholecalciferol (Vitamin D3 -) 1,000 unit PO DAILY [facility] Last Admin: 02/28/17 09:32 Dose: 1,000 unit Clopidogrel Bisulfate (Plavix -) 75 mg PO DAILY [facility] Last Admin: 02/28/17 09:32 Dose: 75 mg Docusate Sodium (Colace -) 100 mg PO BID [facility] Last Admin: 02/28/17 09:33 Dose: 100 mg Ferrous Sulfate (Feosol -) 325 mg PO Q48H [facility] Last Admin: 02/27/17 11:24 Dose: 325 mg Furosemide (Lasix Injection -) 100 mg IVPUSH BID@0600,1400 [facility] Last Admin: 02/28/17 06:14 Dose: 100 mg Milrinone Lactate/Dextrose (Milrinone 20mg/100ml Ivpb -) 100 mls @ 9.716 mls/ hr IVPB TITR [facility] PRN Reason: 0.35 MCG/KG/MIN Last Admin: 02/28/17 06:52 Dose: 9.716 mls/hr Insulin Aspart (Novolog Vial Sliding Scale -) 1 vial SQ ACHS [facility] PRN Reason: Protocol Last Admin: 02/28/17 06:13 Dose: 2 units Multivitamins/Minerals/Vitamin C (Tab-A-Vit -) 1 tab PO DAILY [facility] Last Admin: 02/28/17 09:32 Dose: 1 tab Ondansetron HCl (Zofran Injection) 4 mg IVPB Q6H PRN PRN Reason: NAUSEA Polyethylene Glycol (Miralax (For Daily Use) -) 17 gm PO BID [facility] Last Admin: 02/28/17 09:51 Dose: 17 gm Potassium Chloride (K-Dur -) 40 meq PO QID [facility] Last Admin: 02/28/17 09:33 Dose: 40 meq Ranitidine HCl (Zantac -) 75 mg PO DAILY [facility] Last Admin: 02/28/17 09:32 Dose: 75 mg Silver Sulfadiazine (Silvadene -) 1 applic TP DAILY [facility] Starch (Anusol Suppository -) 1 each RC HS [facility] Last Admin: 02/27/17 22:12 Dose: Not Given Tiotropium [place] (Spiriva -) 1 puff IH DAILY [facility] Last Admin: 02/28/17 09:50 Dose: 1 puff Warfarin Sodium (Coumadin -) 3 mg PO DAILY@1800 [facility] Last Admin: 02/27/17 17:29 Dose: 3 mg - Objective Vital Signs: Vital Signs Temperature 98.4 F 02/28/17 08:15 Pulse Rate 74 02/28/17 08:15 Respiratory Rate 18 02/28/17 08:15 Blood Pressure 122/68 02/28/17 08:15 O2 Sat by Pulse Oximetry (%) 95 02/27/17 21:00 Constitutional: Yes: No Distress, Calm Eyes: Yes: Conjunctiva Clear, EOM Intact Cardiovascular: Yes: Pulse Irregular, S1, S2 Respiratory: Yes: Diminished (at bases) Gastrointestinal: Yes: Normal Bowel Sounds, Soft. No: Distention, Tenderness Extremities: Yes: Other (left lower leg with 2 skin tears, no surrounding erythema (chronic venous stasis changes in legs)) Edema: Yes Edema: LLE: 1+, RLE: 1+ Neurological: Yes: Alert, Oriented Labs: CBC, BMP 02/28/17 05:48 02/28/17 05:48 INR, PTT INR 2.10 (0.82-1.09) H 02/28/17 05:48 Assessment/Plan Current Active Problems CHF (congestive heart failure) (Acute) End stage CHF on Milrinone Pump CKD (chronic kidney disease) (Acute) CAD HTN Hyperlipidemia s/p ID pulm HTN AICD COPD BPH Diabetes Mellitus skin tears -to continue on Lasix for now -change wound cream to silvadene
[2017-02-28] MEDS: SILVER SULFADIAZINE 1% TOP CREAM 50 GM JAR TP SCH (13:41)
[2017-02-28] MEDS: WARFARIN NA 2 MG TABLET (UD) PO SCH (17:17)
[2017-02-28] MEDS: ATORVASTATIN CA 40 MG TABLET (FP) PO SCH (21:32)
[2017-02-28] MEDS: PHENYLEPHRINE 0.25%/STARCH 1 EACH SUPP.RECT RC SCH (21:33)
[2017-03-01] MEDS: MILRINONE 20MG/100ML IVPB - 100 ML IVPB SCH ×2 (05:02→16:29)
[2017-03-01] MEDS: FUROSEMIDE 100 MG/10 ML INJECTABLE VIAL IVPUSH SCH ×2 (06:15→13:34)
[2017-03-01] MEDS: INSULIN SLIDING SCALE (NOVOLOG) 1 VIAL SQ SCH ×3 (06:37→17:27)
[2017-03-01 07:14] LABS: ANION GAP 6 (8-16); CALCIUM 9.5 mg/dL (8.5-10.1); CO2 39 mmol/L (21-32); CREATININE 1.8 mg/dL (0.7-1.3); GLUCOSE,RANDOM 167 mg/dL (74-106)
[2017-03-01 08:07] LABS: INR 2.11 (0.82-1.09); PROTHROMBIN TIME (PATIENT) 23.6 SEC (9.98-11.88)
[2017-03-01] MEDS: ASCORBIC ACID 500 MG TABLET (FP) PO SCH (09:43)
[2017-03-01] MEDS: CARVEDILOL 6.25 MG TABLET (FP) PO SCH (09:43)
[2017-03-01] MEDS: CLOPIDOGREL BISULFATE 75 MG TABLET (FP) PO SCH (09:43)
[2017-03-01] MEDS: POTASSIUM CHLORIDE TABS 20 MEQ TABLET.ER (FP) PO SCH ×3 (09:43→17:28)
[2017-03-01] MEDS: ALLOPURINOL 100 MG TABLET (FP) PO SCH (09:43)
[2017-03-01] MEDS: DOCUSATE SODIUM 100 MG CAPSULE (FP) PO SCH (09:43)
[2017-03-01] MEDS: RANITIDINE HCL 150 MG TABLET (FP) PO SCH (09:44)
[2017-03-01] MEDS: buPROPion HCL 75 MG TABLET PO SCH (09:44)
[2017-03-01] MEDS: CHOLECALCIFEROL (VITAMIN D3) 1,000 UNIT TABLET (FP) PO SCH (09:44)
[2017-03-01] MEDS: MULTIVITAMINS (DAILY MVI) TABLET (FP) PO SCH (09:44)
[2017-03-01] MEDS: TIOTROPIUM BROMIDE 18 MCG/INH (DEVICE W/ 5 CAPSULES) IH SCH (09:45)
[2017-03-01] MEDS: BUDESONIDE/FORMETEROL FUMARATE 160/4.5 mcg INHALER IH SCH (09:45)
[2017-03-01] MEDS: POLYETHYLENE GLYCOL 3350 119 GM BTL PO SCH (09:46)
--- NOTE | 2017-03-01 10:27 | PN ---
Progress Note (short form) - Note Progress Note: Chief Complaint: sob/cough History of Present Illness: still with sob worse than baseline but again reports a little better today no signif leg swelling no cp, palpit no loc/dizzy ex cigs Current Medications Generic Name Dose Route Start Last Admin Trade Name Tanika PRN Reason Stop Dose Admin Acetaminophen 650 mg 02/17/17 11:09 02/25/17 17:50 Tylenol - PO 650 mg Q4H PRN Administration FEVER OR PAIN Allopurinol 100 mg 02/18/17 10:00 03/01/17 09:43 Zyloprim - PO 100 mg DAILY [facility] Administration Ascorbic Acid 1,000 mg 02/18/17 10:00 03/01/17 09:43 Vitamin C - PO 1,000 mg DAILY [facility] Administration Atorvastatin Calcium 40 mg 02/17/17 22:00 02/28/17 21:32 Lipitor - PO 40 mg HS [facility] Administration Budesonide/Formoterol Fumarate 1 puff 02/17/17 11:15 03/01/17 09:45 Symbicort 160/4.5mcg - IH 1 puff BID [facility] Administration Bupropion HCl 75 mg 02/17/17 11:15 03/01/17 09:44 Wellbutrin - PO 75 mg DAILY [facility] Administration Carvedilol 6.25 mg 02/17/17 11:15 03/01/17 09:43 Coreg - PO 6.25 mg BID [facility] Administration Cholecalciferol 1,000 unit 02/17/17 11:15 03/01/17 09:44 Vitamin D3 - PO 1,000 unit DAILY [facility] Administration Clopidogrel Bisulfate 75 mg 02/17/17 11:15 03/01/17 09:43 Plavix - PO 75 mg DAILY [facility] Administration Docusate Sodium 100 mg 02/17/17 22:00 03/01/17 09:43 Colace - PO 100 mg BID [facility] Administration Ferrous Sulfate 325 mg 02/17/17 11:15 02/27/17 11:24 Feosol - PO 325 mg Q48H [facility] Administration Furosemide 100 mg 02/20/17 11:08 03/01/17 06:15 Lasix Injection - IVPUSH 100 mg BID@0600,1400 [facility] Administration Milrinone Lactate/Dextrose 100 mls @ 9.716 mls/hr 02/17/17 11:00 03/01/17 05:02 Milrinone 20mg/100ml Ivpb - IVPB 9.716 mls/hr TITR [facility] Administration 0.35 MCG/KG/MIN Insulin Aspart 1 vial 02/17/17 16:30 03/01/17 06:37 Novolog Vial Sliding Scale - SQ 2 units ACHS [facility] Administration Protocol Metolazone 5 mg 03/01/17 13:00 Zaroxolyn - PO 03/01/17 13:01 ONCE ONE Multivitamins/Minerals/Vitamin C 1 tab 02/18/17 10:00 03/01/17 09:44 Tab-A-Vit - PO 1 tab DAILY [facility] Administration Ondansetron HCl 4 mg 02/17/17 11:09 Zofran Injection IVPB Q6H PRN NAUSEA Polyethylene Glycol 17 gm 02/27/17 22:00 03/01/17 09:46 Miralax (For Daily Use) - PO Not Given BID [facility] Potassium Chloride 40 meq 02/26/17 14:00 03/01/17 09:43 K-Dur - PO 40 meq QID [facility] Administration Ranitidine HCl 75 mg 02/17/17 11:15 03/01/17 09:44 Zantac - PO 75 mg DAILY [facility] Administration Silver Sulfadiazine 1 applic 02/28/17 10:00 02/28/17 13:41 Silvadene - TP Not Given DAILY [facility] Starch 1 each 02/17/17 22:00 02/28/17 21:33 Anusol Suppository - RC Not Given HS [facility] Tiotropium [place] 1 puff 02/19/17 17:15 03/01/17 09:45 Spiriva - IH 1 puff DAILY [facility] Administration Warfarin Sodium 3 mg 02/27/17 14:05 02/28/17 17:17 Coumadin - PO 3 mg DAILY@1800 [facility] Administration Vital Signs Temp 97.5 F L 03/01/17 05:00 Pulse 79 03/01/17 05:00 Resp 18 03/01/17 05:00 BP 111/64 03/01/17 05:00 Pulse Ox 95 02/28/17 22:00 Intake & Output 02/28/17 02/28/17 03/01/17 11:59 23:59 11:59 Intake Total 366.4 160 Output Total 600 2300 Balance -600 -1933.6 160 Weight 203 lb 8 oz 202 lb 3 oz Intake: IV 116.4 110 R Chest PICC 116.4 110 Oral 250 50 Output: Urine 600 2300 Void 600 2300 Other: Voiding Method Toilet Urinal Weight Measurement Method Standing Scale Standing Scale Constitutional: Yes: No Distress, Calm Eyes: No: Sclera Icterus HENT: No: Nasal Congestion Cardiovascular: Yes: Regular Rate and Rhythm, JVD (EJ massively distended at 90 degr (no IJ seen)), S1, S2, Other (PMI non diplaced). No: Gallop, Murmur Respiratory: Yes: bibasilar rales (improving). No: Accessory Muscle Use, Rales , Wheezes Gastrointestinal: Yes: Normal Bowel Sounds, Soft. No: Tenderness Musculoskeletal: Yes: Other (No kyphosis) Extremities: No: Cold Edema: trace Integumentary: No: Jaundice Neurological: Yes: Alert, Oriented (x3) Psychiatric: No: Agitated Labs: CBC, BMP 02/28/17 05:48 03/01/17 05:35 - ....Imaging EKG: Other (tele: AF, V-P, brief nsvt) ecg 02/16/17: [facility] general counsel echo 05/2016: sev lve, global hk, sev dec lvef, mild rve, nl rv fcn, estefania, mild- mod mr, mv ring, tv ring, mild tr, mild pr, mild phtn, ivc mild dil a/p: 76 year old man with PMH of IDDM, COPD (O2 dependant) HTN, HLD, Afib (on coumadin), CAD s/p CABG 2012, end stage CHF with ICD placement (on milrinone pump), PVD, BPH here with sob. acute on chronic systolic CHF, end stage systolic heart failure s/p ICD, on home milrinone infusion: - here with sob/jose - was well diuresed at home to wt 202-204 with creat 2.1 and Na 151--torsemide 80 bid gradually downtitrated back to 40 bid - saw me last week with sob at baseline, but ongoing phlegmy cough--likely sec to advanced copd and NOT chf - developed acute incr sob in afternoon, after left my office for last appt, thinks wt was 207 that day - cxr here worsened, with perihilar edema pattern and RLL infiltrates likely chf (no other clinical signs of PNA) - initial wt 204 standing, up to 207 on HD 2 - suspect diet/fluid noncompliance may be trigger of chf here - cont milrinone at patient's home maintenance dose (on chronic infusion destination therapy)--0.35 mcg/kg/min. - cont home coreg. (no ALESSANDRA due to low bp's and labile creatinines; no Entresto for same reason) - recent office icd check with stable function - 02/17 unclear if sxs from chf or some URI/copd (productive cough). Will give trial of iv lasix 80 x1 today and monitor sxs, cr trend tomorrow to see if improving. - 02/18. Symptoms improving, creatinine improved after lasix 80 mg IV x 1 yesterday. Will continue daily dosing. - 02/19 Ongoing weight gain, will increase lasix to bid dosing--though pt refused 2nd dose due to late in day timing - note: pt gains wt rapidly at home when non-compliant with 1.5L daily fluid restriction ( supervises) and same here when fluid restriction not ordered/ implemented - 02/20: fluid restriction ordered, importance d/w'd RN (to inform lpn or medical assistant); wt up to 212 (target wt is 207 or less). bid lasix today. responds to metolazone reliably at home when wt rises so low threshold to give this if wt rises further tomorrow (hopefully he is not becoming IV diuretic dependent) - suspect loss of muscle mass over time, with new dry wt closer to 202-204 - 02/21 Significantly bothered by frequent urination. declines damian. Still symptomatic, minimal weight loss this morning. will give extra dose of metolazone this afternoon with pm lasix. -02/22: Cr stable, wt down a pound. Will cont iv lasix 100 bid and give metolazone 5 today as well. -02/23: cr stable, wt unchanged but pt reports slight improvement in sob. Will replete K. Cont iv lasix. -02/24: cr stable, wt improved today, less sob as well. Cont with lasix 100 iv bid, goal wt close to 203lbs -02/25: wt stalled at 207. cont iv lasix today and rpt metolazone 5mg, bp permitting. will cont iv lasix until objective signs of vol depletion ( hypotension, elev bun/creat) to better define dry wt, in hopes of avoiding ongoing freq hospitalizations -02/26: wt down 1 lb; renal fxn stable. rpt metolazone with lasix 100 iv bid today , incr KCL to aim for K 4.0 -02/27: wt continues to decline 1 lb per day, (204 today), renal fxn stable-- advised same plan (lasix plus metolazone) to confidently define dry wt prior to discharge. pt very upset about staying here for this, even though i explained that he continues to frequently bounce back with chf despite best attempts to do this process with po torsemide as outpt. -02/28: wt down 203, renal fxn stable. i do not feel we have defined his (new?) dry wt yet. however unclear how long pt is willing to stay in hospital. if willing, would repeat lasix 100mg IV bid today plus metolazone 5mg x 1 -03/01: wt continues to decrease, cr stable. Would cont diuresis with iv lasix and metolazone today until have reached a dry wt (no further wt loss, bump in bun/cr) -d/w'd need to see chf specialist again, ? milrinone dosing can be adjusted --dr perea ([facility]) has left so they will transfer care and do not want [facility] ( she is to make appt with dr harden at [facility]) -if no further options per CHF specialist eval, and cannot keep him out of the hospital with more aggressive weight target, will have to discuss palliative care/home hospice with pt and RUQ pain: - no tenderness, no naus/vomiting, normal WBC count, no fever - LFTs normal 02/20 last--reorder - defer further evaluation, if indicated, to pmd afib - currently rate controlled on coreg - cont coumadin per INR VT: - intermittent brief runs of NSVT on tele, chronic finding on prior admits - has ICD - on max tolerated coreg dose - replete lytes prn PVD - con't AC, statin. CAD s/p CABG - No anginal symptoms, no signs acs. Con't home ac, plavix, atorvastatin, coreg HTN: controlled on coreg HLD: con't statin. chu/CKD: - suspect cardiorenal syndrome, with renal fxn improving due to IV diuresis - renal fxn presently at baseline copd - per pulm/pmd
--- NOTE | 2017-03-01 11:27 | PN ---
Progress Note, Physician History of Present Illness: PULMONARY ALERT,COMFORTABLE AT REST ,-RESP DISTRESS,+ FREIRE - Current Medication List Current Medications: Active Medications Acetaminophen (Tylenol -) 650 mg PO Q4H PRN PRN Reason: FEVER OR PAIN Last Admin: 02/25/17 17:50 Dose: 650 mg Allopurinol (Zyloprim -) 100 mg PO DAILY [facility] Last Admin: 03/01/17 09:43 Dose: 100 mg Ascorbic Acid (Vitamin C -) 1,000 mg PO DAILY [facility] Last Admin: 03/01/17 09:43 Dose: 1,000 mg Atorvastatin Calcium (Lipitor -) 40 mg PO HS [facility] Last Admin: 02/28/17 21:32 Dose: 40 mg Budesonide/Formoterol Fumarate (Symbicort 160/4.5mcg -) 1 puff IH BID [facility] Last Admin: 03/01/17 09:45 Dose: 1 puff Bupropion HCl (Wellbutrin -) 75 mg PO DAILY [facility] Last Admin: 03/01/17 09:44 Dose: 75 mg Carvedilol (Coreg -) 6.25 mg PO BID [facility] Last Admin: 03/01/17 09:43 Dose: 6.25 mg Cholecalciferol (Vitamin D3 -) 1,000 unit PO DAILY [facility] Last Admin: 03/01/17 09:44 Dose: 1,000 unit Clopidogrel Bisulfate (Plavix -) 75 mg PO DAILY [facility] Last Admin: 03/01/17 09:43 Dose: 75 mg Docusate Sodium (Colace -) 100 mg PO BID [facility] Last Admin: 03/01/17 09:43 Dose: 100 mg Ferrous Sulfate (Feosol -) 325 mg PO Q48H [facility] Last Admin: 02/27/17 11:24 Dose: 325 mg Furosemide (Lasix Injection -) 100 mg IVPUSH BID@0600,1400 [facility] Last Admin: 03/01/17 06:15 Dose: 100 mg Milrinone Lactate/Dextrose (Milrinone 20mg/100ml Ivpb -) 100 mls @ 9.716 mls/ hr IVPB TITR [facility] PRN Reason: 0.35 MCG/KG/MIN Last Admin: 03/01/17 05:02 Dose: 9.716 mls/hr Insulin Aspart (Novolog Vial Sliding Scale -) 1 vial SQ ACHS [facility] PRN Reason: Protocol Last Admin: 03/01/17 06:37 Dose: 2 units Metolazone (Zaroxolyn -) 5 mg PO ONCE ONE Stop: 03/01/17 13:31 Multivitamins/Minerals/Vitamin C (Tab-A-Vit -) 1 tab PO DAILY [facility] Last Admin: 03/01/17 09:44 Dose: 1 tab Ondansetron HCl (Zofran Injection) 4 mg IVPB Q6H PRN PRN Reason: NAUSEA Polyethylene Glycol (Miralax (For Daily Use) -) 17 gm PO BID [facility] Last Admin: 03/01/17 09:46 Dose: Not Given Potassium Chloride (K-Dur -) 40 meq PO QID [facility] Last Admin: 03/01/17 09:43 Dose: 40 meq Ranitidine HCl (Zantac -) 75 mg PO DAILY [facility] Last Admin: 03/01/17 09:44 Dose: 75 mg Silver Sulfadiazine (Silvadene -) 1 applic TP DAILY [facility] Last Admin: 02/28/17 13:41 Dose: Not Given Starch (Anusol Suppository -) 1 each RC HS [facility] Last Admin: 02/28/17 21:33 Dose: Not Given Tiotropium [place] (Spiriva -) 1 puff IH DAILY [facility] Last Admin: 03/01/17 09:45 Dose: 1 puff Warfarin Sodium (Coumadin -) 3 mg PO DAILY@1800 [facility] Last Admin: 02/28/17 17:17 Dose: 3 mg - Objective Vital Signs: Vital Signs Temperature 97.5 F L 03/01/17 05:00 Pulse Rate 79 03/01/17 05:00 Respiratory Rate 18 03/01/17 05:00 Blood Pressure 111/64 03/01/17 05:00 O2 Sat by Pulse Oximetry (%) 95 02/28/17 22:00 Constitutional: Yes: Well Nourished, Calm Eyes: Yes: WNL, Occular Prosthesis Neck: Yes: WNL Cardiovascular: Yes: Pulse Irregular, S1, S2 Respiratory: Yes: Rales (FEW BIBASILAR CRACKLES) Gastrointestinal: Yes: Normal Bowel Sounds, Soft Extremities: Yes: WNL Edema: Yes Edema: LLE: Trace, RLE: Trace Labs: CBC, BMP 02/28/17 05:48 03/01/17 05:35 INR, PTT INR 2.11 (0.82-1.09) H 03/01/17 05:35 Problem List - Problems (1) CHF (congestive heart failure) Code(s): I50.9 - HEART FAILURE, UNSPECIFIED Qualifiers: Congestive heart failure type: systolic Congestive heart failure chronicity: acute on chronic Qualified Code(s): I50.23 - Acute on chronic systolic (congestive) heart failure (2) CKD (chronic kidney disease) Code(s): N18.9 - CHRONIC KIDNEY DISEASE, UNSPECIFIED Qualifiers: (3) AICD (automatic cardioverter/defibrillator) present Code(s): Z95.810 - PRESENCE OF AUTOMATIC (IMPLANTABLE) CARDIAC DEFIBRILLATOR (4) Acute and chronic respiratory failure ([id number]) Code(s): J96.20 - ACUTE AND CHR RESP FAILURE, UNSP W HYPOXIA OR HYPERCAPNIA Qualifiers: Respiratory failure complication: hypoxia Qualified Code(s): J96.21 - Acute and chronic respiratory failure with hypoxia (5) Acute on chronic renal insufficiency Code(s): N28.9 - DISORDER OF KIDNEY AND URETER, UNSPECIFIED N18.9 - CHRONIC KIDNEY DISEASE, UNSPECIFIED (6) Atrial fibrillation Code(s): I48.91 - UNSPECIFIED ATRIAL FIBRILLATION Qualifiers: Atrial fibrillation type: chronic Qualified Code(s): I48.2 - Chronic atrial fibrillation (7) CAD (coronary artery disease) Code(s): I25.10 - ATHSCL HEART DISEASE OF [place] CORONARY ARTERY W/O ANG PCTRS (8) COPD (chronic obstructive pulmonary disease) Code(s): J44.9 - CHRONIC OBSTRUCTIVE PULMONARY DISEASE, UNSPECIFIED (9) Cardiomyopathy Code(s): I42.9 - CARDIOMYOPATHY, UNSPECIFIED (10) Diabetes Code(s): E11.9 - TYPE 2 DIABETES MELLITUS WITHOUT COMPLICATIONS Qualifiers: Diabetes mellitus type: type 2 Diabetes mellitus complication status: with kidney complications Diabetes mellitus complication detail: with chronic kidney disease Chronic kidney disease stage: stage 4 (severe) (11) Dyspnea on exertion Code(s): R06.09 - OTHER FORMS OF DYSPNEA (12) Presence of permanent cardiac pacemaker Code(s): Z95.0 - PRESENCE OF CARDIAC PACEMAKER Assessment/Plan IMP ACUTE ON CHRONIC RESPIRATORY FAILURE IMPROVING DECOMPENSATED CHF IMPROVING SEVERE LV DYSFUNCTION S/P ICD ,ON MILRINONE DRIP ASHD S/P CABG ADVANCED COPD ON O2 AFIB ACUTE ON CKD PVD BPH PLAN CONTINUE IV LASIX PER CARDIOLOGY O2 MILRINONE INHALED BRONCHODILATORS MONITOR LYTES ,RENAL FUNCTION DAILY WTS AC MONITOR INR DR MONTGOMERY Problem List - Problems (1) CHF (congestive heart failure) Code(s): I50.9 - HEART FAILURE, UNSPECIFIED Qualifiers: (2) CKD (chronic kidney disease) Code(s): N18.9 - CHRONIC KIDNEY DISEASE, UNSPECIFIED Qualifiers: (3) AICD (automatic cardioverter/defibrillator) present Code(s): Z95.810 - PRESENCE OF AUTOMATIC (IMPLANTABLE) CARDIAC DEFIBRILLATOR (4) Acute and chronic respiratory failure ([id number]) Code(s): J96.20 - ACUTE AND CHR RESP FAILURE, UNSP W HYPOXIA OR HYPERCAPNIA Qualifiers: Respiratory failure complication: hypoxia Qualified Code(s): J96.21 - Acute and chronic respiratory failure with hypoxia (5) Acute on chronic renal insufficiency Code(s): N28.9 - DISORDER OF KIDNEY AND URETER, UNSPECIFIED N18.9 - CHRONIC KIDNEY DISEASE, UNSPECIFIED (6) Atrial fibrillation Code(s): I48.91 - UNSPECIFIED ATRIAL FIBRILLATION Qualifiers: Atrial fibrillation type: chronic Qualified Code(s): I48.2 - Chronic atrial fibrillation (7) CAD (coronary artery disease) Code(s): I25.10 - ATHSCL HEART DISEASE OF [place] CORONARY ARTERY W/O ANG PCTRS (8) COPD (chronic obstructive pulmonary disease) Code(s): J44.9 - CHRONIC OBSTRUCTIVE PULMONARY DISEASE, UNSPECIFIED (9) Cardiomyopathy Code(s): I42.9 - CARDIOMYOPATHY, UNSPECIFIED (10) Diabetes Code(s): E11.9 - TYPE 2 DIABETES MELLITUS WITHOUT COMPLICATIONS Qualifiers: Diabetes mellitus type: type 2 Diabetes mellitus complication status: with kidney complications Diabetes mellitus complication detail: with chronic kidney disease Chronic kidney disease stage: stage 4 (severe) (11) Dyspnea on exertion Code(s): R06.09 - OTHER FORMS OF DYSPNEA (12) Presence of permanent cardiac pacemaker Code(s): Z95.0 - PRESENCE OF CARDIAC PACEMAKER
[2017-03-01] MEDS: FERROUS SO4 325 MG TABLET (FP) PO SCH (11:53)
[2017-03-01] MEDS ORDERED: INSULIN (NOVOLOG) ASPART 100 UNITS/ML 10ML VIAL ONE (11:56)
--- NOTE | 2017-03-01 12:22 | DS ---
Physical Examination Vital Signs: Vital Signs Temperature 98 F 03/01/17 10:00 Pulse Rate 77 03/01/17 10:00 Respiratory Rate 18 03/01/17 10:00 Blood Pressure 98/54 03/01/17 10:00 O2 Sat by Pulse Oximetry (%) 95 02/28/17 22:00 Constitutional: Yes: No Distress, Calm Cardiovascular: Yes: Pulse Irregular. No: Gallop, Murmur, Rub Respiratory: Yes: Regular, On Nasal O2, Rhonchi. No: CTA Bilaterally, Rales, Wheezes Gastrointestinal: Yes: Normal Bowel Sounds, Soft. No: Distention, Tenderness Extremities: Yes: WNL Edema: Yes Edema: LLE: 1+, RLE: 1+ Labs: CBC, BMP 02/28/17 05:48 03/01/17 05:35 Discharge Summary Reason For Visit: CHF,CKD Current Active Problems CHF (congestive heart failure) (Acute) CKD (chronic kidney disease) (Acute) Hospital Course: (1) CHF (congestive heart failure) Code(s): I50.9 - HEART FAILURE, UNSPECIFIED Qualifiers: Congestive heart failure type: systolic Congestive heart failure chronicity: acute on chronic Qualified Code(s): I50.23 - Acute on chronic systolic (congestive) heart failure (2) Acute and chronic respiratory failure ([id number]) Code(s): J96.20 - ACUTE AND CHR RESP FAILURE, UNSP W HYPOXIA OR HYPERCAPNIA Qualifiers: Respiratory failure complication: hypoxia Qualified Code(s): J96.21 - Acute and chronic respiratory failure with hypoxia (3) Acute on chronic renal insufficiency Code(s): N28.9 - DISORDER OF KIDNEY AND URETER, UNSPECIFIED N18.9 - CHRONIC KIDNEY DISEASE, UNSPECIFIED (4) Atrial fibrillation Code(s): I48.91 - UNSPECIFIED ATRIAL FIBRILLATION Qualifiers: Atrial fibrillation type: chronic Qualified Code(s): I48.2 - Chronic atrial fibrillation (5) CAD (coronary artery disease) Code(s): I25.10 - ATHSCL HEART DISEASE OF [place] CORONARY ARTERY W/O ANG PCTRS (6) COPD (chronic obstructive pulmonary disease) Code(s): J44.9 - CHRONIC OBSTRUCTIVE PULMONARY DISEASE, UNSPECIFIED (7) Diabetes Code(s): E11.9 - TYPE 2 DIABETES MELLITUS WITHOUT COMPLICATIONS Qualifiers: Diabetes mellitus type: type 2 Diabetes mellitus complication status: with kidney complications Diabetes mellitus complication detail: with chronic kidney disease Chronic kidney disease stage: stage 4 (severe) Mr Perez is a 76 year old male with end stage CHF coming in with exacerbation and acute on chronic respiratory failure. He was admitted and seen by cardiology and pulmonary. After evaluation he was found to be in CHF exacerbation and his COPD was controlled. He was diuresed with IV lasix and metolazone. He improved and is close to baseline. He is at his dry weight. Case was discussed with cardiology on day of discharge as noted patient may benefit from further IV diuresis but he was adamant on returning home. It was felt he was safe to be discharged with close follow up. He is discharged home with home oxygen and milrinone. He is to continue on his previous dose of torsemide, to be adjusted as an outpatient if needed. 37 minutes spent in discharge of this patient Condition: Good - Instructions Diet, Activity, Other Instructions: 1.5L fluid restriction. Low salt diet. Continue previous activity level. Referrals: Khang Lopez MD [Primary Care Provider] - Nash Garner MD [Staff Physician] - Disposition: VNS/HOME HEALTH CARE - Home Medications Comprehensive Discharge Medication List: Ambulatory Orders Allopurinol [Zyloprim -] 100 mg PO DAILY 09/10/15 Atorvastatin Ca [Lipitor] 40 mg PO HS 09/10/15 Carvedilol 6.25 mg PO BID 09/10/15 Docusate Sodium [Colace -] 100 mg PO BID 09/10/15 Insulin NPL/Insulin Lispro [Humalog Mix 75-25 Vial] 0 unit SQ PRN 09/10/15 Milrinone Lactate/D5w [Milrinone 0.2 mg/ml in D5w] 0 mg IV DAILY 09/10/15 Ranitidine [Zantac -] 75 mg PO DAILY 09/10/15 Albuterol 0.083% Nebulizer Jewell [Ventolin 0.083% Nebulizer Soln -] 1 amp NEB Q6H PRN #120 amp 09/14/15 Ferrous Sulfate [Feosol] 325 mg PO Q48H ud 04/23/16 Warfarin Na [Coumadin -] 4 mg PO DAILY@1800 09/06/16 Bupropion HCl [Wellbutrin -] 75 mg DAILY 09/08/16 Ascorbic Acid [Vitamin C -] 1,000 mg PO DAILY 11/24/16 Cholecalciferol (Vitamin D3) [Vitamin D -] 1,000 unit PO DAILY 11/24/16 Clopidogrel Bisulfate [Plavix -] 75 mg PO DAILY 11/24/16 Multivitamin [Poly-Vitamin] 1 each PO DAILY 11/24/16 Budesonide/Formeterol Fumarate [SYMBICORT 160/4.5mcg -] 1 inh PO BID 02/17/17 Potassium Chloride [K-Dur -] 40 meq PO TID 02/17/17 Tiotropium [place] [Spiriva] 1 inh IH DAILY 02/17/17 Torsemide [Demadex -] 40 mg PO BID 02/17/17
[2017-03-01] MEDS: SILVER SULFADIAZINE 1% TOP CREAM 50 GM JAR TP SCH ×2 (13:13→13:16)
[2017-03-01] MEDS ORDERED: METOLAZONE 5 MG TABLET PO ONE (13:30)
[2017-03-01] MEDS: WARFARIN NA 2 MG TABLET (UD) PO SCH (17:27)
[2017-03-01 17:47] VITALS: BP 129/70; PULSE 75; TEMP 97.2
== END 2017-03-01 19:24 | disposition home or self-care (01) | DRG 291 ==
LOC: JER 23:25 → JERBED 02-17 05:43 → J4W 02-17 09:09 → UNDODISIN 03-01 18:27
PROVIDERS: ADMIT Internal Medicine; ATTEND Internal Medicine
DX: I13.0 Hypertensive heart and chronic kidney disease with heart failure and stage 1 through stage 4 chronic kidney disease, or unspecified chronic kidney disease (principal); I50.23 Acute on chronic systolic (congestive) heart failure; J96.21 Acute and chronic respiratory failure with hypoxia; N17.9 Acute kidney failure, unspecified; I47.2 Ventricular tachycardia; E11.22 Type 2 diabetes mellitus with diabetic chronic kidney disease; N18.9 Chronic kidney disease, unspecified; I48.2 Chronic atrial fibrillation; I25.10 Atherosclerotic heart disease of native coronary artery without angina pectoris; J44.9 Chronic obstructive pulmonary disease, unspecified; E78.5 Hyperlipidemia, unspecified; Z95.1 Presence of aortocoronary bypass graft; I73.9 Peripheral vascular disease, unspecified; Z79.4 Long term (current) use of insulin; N40.0 Benign prostatic hyperplasia without lower urinary tract symptoms; I27.2 Other secondary pulmonary hypertension; I25.2 Old myocardial infarction; Z95.0 Presence of cardiac pacemaker; Z87.891 Personal history of nicotine dependence
CPT/HCPCS: 36415; 71010-TC; 80048; 80053; 80076; 81003; 81015; 82550; 83735; 83880; 84100; 84484; 85025; 85027; 85610; 93005; 93010; 94640; 97116-GP; 97161-GP; 99285-25

== ENCOUNTER 2017-09-30 10:32 | Inpatient (IN) | payer BC, OTHER ==
--- NOTE | 2017-09-30 11:18 | PDOC ---
History of Present Illness - General History Source: Patient Exam Limitations: No Limitations - History of Present Illness Initial Comments: 09/30/17 12:37 The patient is a 77-year-old male with a significant past medical history of anemia, asthma, a-fib, CHF, ([place] 2011, defibrillator placement, pacemaker), CAD ( 2 cardiac stents), aortic valve replacement, COPD (O2 dependent), HTN, hypercholesterolemia, who presents to the emergency department with SOB, constant cough, and congestion for 1 week. He reports of a non-productive dry cough and mild rhinorrhea. He states he has been using his inhaler with no significant relief. Patient states he received a flu shot this year. The patient denies chest pain, leg swelling, headache and dizziness. The patient denies fever, chills, abdominal pain, nausea, vomit, diarrhea and constipation. The patient denies dysuria, frequency, urgency and hematuria. Allergies: shellfish derived Social History: former smoker PCP: Dr. Lopez Sample Shoe Inspector And Reworker: Dr. Chandra <Mony Acosta - Last Filed: 09/30/17 12:37> <Nicole Low - Last Filed: 09/30/17 14:29> - General Chief Complaint: Cold Symptoms Stated Complaint: CONGESTIVE HEART FAILURE Time Seen by Provider: 09/30/17 11:12 Past History <Mony Acosta - Last Filed: 09/30/17 12:37> - Past Medical History Anemia: Yes Asthma: No Cancer: No Cardiac Disorders: Yes (DEFRIBILLATOR) CVA: No COPD: Yes (O2 DEP - 2L) CHF: Yes Dementia: No Diabetes: Yes GI Disorders: No Disorders: Yes (BPH) HTN: Yes Hypercholesterolemia: Yes Liver Disease: No Seizures: No Thyroid Disease: No - Surgical History Abdominal Surgery: Yes (HERNIA REPAIR 2002) Appendectomy: No Cardiac Surgery: Yes (2 OPEN HEART SURGERIES; TRACH PLACEMENT,PACEMAKER PLACED ) Cholecystectomy: Yes Lung Surgery: No Neurologic Surgery: No Orthopedic Surgery: No - Immunization History Td Vaccination: Yes TDAP Vaccination: Yes Immunization Up to Date: Yes - Suicide/Smoking/Psychosocial Hx Smoking Status: No Smoking History: Former smoker Years of Tobacco Use: 40 Have you smoked in the past 12 months: No Number of Cigarettes Smoked Daily: 40 If you are a former smoker, when did you quit?: 2010 Cigars Per Day: 0 Information on smoking cessation initiated: No 'Breaking Loose' booklet given: 02/06/12 Hx Alcohol Use: No Drug/Substance Use Hx: No Substance Use Type: None Hx Substance Use Treatment: No <Nicole Low - Last Filed: 09/30/17 14:29> - Past Medical History Allergies/Adverse Reactions: Allergies Allergy/AdvReac Type Severity Reaction Status Date / Time No Known Drug Allergies Allergy Verified 09/30/17 10:37 shellfish derived Allergy Verified 09/30/17 10:37 Home Medications: Ambulatory Orders Allopurinol [Zyloprim -] 100 mg PO DAILY 09/10/15 Atorvastatin Ca [Lipitor] 40 mg PO HS 09/10/15 Carvedilol 6.25 mg PO BID 09/10/15 Docusate Sodium [Colace -] 100 mg PO BID 09/10/15 Insulin NPL/Insulin Lispro [Humalog Mix 75-25 Vial] 0 unit SQ PRN 09/10/15 Milrinone Lactate/D5w [Milrinone 0.2 mg/ml in D5w] 0 mg IV DAILY 09/10/15 Ranitidine [Zantac -] 75 mg PO DAILY 09/10/15 Albuterol 0.083% Nebulizer [place] [Ventolin 0.083% Nebulizer Soln -] 1 amp NEB Q6H PRN #120 amp 09/14/15 Ferrous Sulfate [Feosol] 325 mg PO Q48H ud 04/23/16 Warfarin Na [Coumadin -] 2 mg PO DAILY@1800 09/06/16 Bupropion HCl [Wellbutrin -] 75 mg DAILY 09/08/16 Ascorbic Acid [Vitamin C -] 1,000 mg PO DAILY 11/24/16 Cholecalciferol (Vitamin D3) [Vitamin D -] 1,000 unit PO DAILY 11/24/16 Multivitamin [Poly-Vitamin] 1 each PO DAILY 11/24/16 Budesonide/Formeterol Fumarate [SYMBICORT 160/4.5mcg -] 1 inh PO BID 02/17/17 Torsemide [Demadex -] 20 mg PO BID 02/17/17 Review of Systems - Review of Systems Able to Perform ROS?: Yes Comments:: 09/30/17 12:37 GENERAL/CONSTITUTIONAL: No fever or chills. No weakness. HEAD, EYES, EARS, NOSE AND THROAT: No change in vision. No ear pain or discharge. No sore throat. CARDIOVASCULAR: (+) shortness of breath. No chest pain. RESPIRATORY: (+) Cough. No wheezing, or hemoptysis. GASTROINTESTINAL: No nausea, vomiting, diarrhea or constipation. GENITOURINARY: No dysuria, frequency, or change in urination. MUSCULOSKELETAL: No joint or muscle swelling or pain. No neck or back pain. SKIN: No rash NEUROLOGIC: No headache, vertigo, loss of consciousness, or change in strength/ sensation. ENDOCRINE: No increased thirst. No abnormal weight change. HEMATOLOGIC/LYMPHATIC: No anemia, easy bleeding, or history of blood clots. ALLERGIC/IMMUNOLOGIC: No hives or skin allergy. <Mony Acosta - Last Filed: 09/30/17 12:37> *Physical Exam - Vital Signs Last Vital Signs Temp Pulse Resp BP Pulse Ox 97.8 F 75 16 96/62 98 09/30/17 10:39 09/30/17 10:39 09/30/17 10:39 09/30/17 10:39 09/30/17 10:39 - Physical Exam Comments: 09/30/17 12:38 GENERAL: Awake, alert, and fully oriented, in no acute distress HEAD: No signs of trauma EYES: PERRLA, EOMI, sclera anicteric, conjunctiva clear ENT: Auricles normal inspection, hearing grossly normal, nares patent, oropharynx clear without exudates. Moist mucosa NECK: Normal ROM, supple, no lymphadenopathy, JVD, or masses LUNGS: (+) Diminished breath sounds bilaterally. No wheezes, rales, and no crackles HEART: Regular rate and rhythm, normal S1 and S2, no murmurs, rubs or gallops. ( +) PICC line in the right chest wall (milrinone). ABDOMEN: Soft, nontender, normoactive bowel sounds. No guarding, no rebound. No masses EXTREMITIES: Normal range of motion, no edema. No clubbing or cyanosis. No cords, erythema, or tenderness NEUROLOGICAL: Cranial nerves II through XII grossly intact. Normal speech, normal gait SKIN: Warm, Dry, normal turgor, no rashes or lesions noted. <Mony Acosta - Last Filed: 09/30/17 12:37> - Vital Signs Last Vital Signs Temp Pulse Resp BP Pulse Ox 97.8 F 75 16 96/62 98 09/30/17 10:39 09/30/17 10:39 09/30/17 10:39 09/30/17 10:39 09/30/17 10:39 <Nicole Low - Last Filed: 09/30/17 14:29> Heart Score/ECG Review - ECG Intrepretation Comment:: 09/30/17 11:56 paced at 75, no acute findings <Nicole Low - Last Filed: 09/30/17 14:29> ED Treatment Course - LABORATORY CBC & Chemistry Diagram: 09/30/17 11:50 09/30/17 11:35 - ADDITIONAL ORDERS Additional order review: Laboratory Results 09/30/17 09/30/17 09/30/17 11:50 11:35 11:35 VBG pH 7.39 POC VBG pCO2 53.3 H POC VBG pO2 44.7 Mixed VBG HCO3 31.3 H Sodium Cancelled Potassium Cancelled Chloride Cancelled Carbon Dioxide Cancelled Anion Gap Cancelled BUN Cancelled Creatinine Cancelled Creat Clearance w eGFR Cancelled Random Glucose Cancelled Calcium Cancelled Magnesium Cancelled Total Bilirubin Cancelled AST Cancelled ALT Cancelled Alkaline Phosphatase Cancelled Creatine Kinase Cancelled Troponin I Cancelled B-Natriuretic Peptide Cancelled Total Protein Cancelled Albumin Cancelled 09/30/17 11:50 RBC 4.71 MCV 83.2 MCHC 31.6 L RDW 20.2 H MPV 8.2 Neutrophils % 65.6 Lymphocytes % 21.1 D Monocytes % 12.0 H Eosinophils % 0.7 Basophils % 0.6 - Medications Given in the ED: ED Medications Discontinued Medications Generic Name Dose Route Start Last Admin Trade Name Freq PRN Reason Stop Dose Admin Albuterol/Ipratropium 1 amp 09/30/17 11:35 09/30/17 12:13 Duoneb - NEB 09/30/17 11:36 1 amp ONCE ONE Administration <Mony Acosta - Last Filed: 09/30/17 12:37> - LABORATORY CBC & Chemistry Diagram: 09/30/17 11:50 09/30/17 11:35 <Nicole Low - Last Filed: 09/30/17 14:29> Medical Decision Making - Medical Decision Making 09/30/17 11:57 a/p: 77yo male with cough/sob/congestion x 2 weeks -hx of copd and chf -on milrinone gtt and pacer -using inhalers with minimal relief -diminished bs - suspect copd exacerbation more so than chf -will check labs, ekg, cxr, vbg -flu swab -Cards - Dr. Boyd -PULM - Dr. Valle 09/30/17 12:17 infiltrates on xray blood cultures ordered will start abx will place consults to dr. boyd and dr. valle will call Dr. Pritchard for admission 09/30/17 14:29 case discussed with Mariya from [facility] accepts pt under Dr. Bar Jean Baptiste covering for Dr. Pritchard <Nicole Low - Last Filed: 09/30/17 14:29> *DC/Admit/Observation/Transfer - Attestations Scribe Attestion: 09/30/17 12:38 Documentation prepared by Mony Acosta, acting as medical pathology teacher for Nicole Low DO, MD/. <Mony Acosta - Last Filed: 09/30/17 12:37> - Discharge Dispostion Admit: Yes - Attestations Physician Attestion: 09/30/17 12:19 I, Dr. Nicole Low DO, attest that this document has been prepared under my direction and personally reviewed by me in its entirety. I further attest, that it accurately reflects all work, treatment, procedures and medical decision -making performed by me. <Nicole Low - Last Filed: 09/30/17 14:29> Diagnosis at time of Disposition: COPD (chronic obstructive pulmonary disease), Pulmonary infiltrates on CXR, Shortness of breath, JOHN (acute kidney injury), AICD (automatic cardioverter/ defibrillator) present, Dyspnea on exertion, CHF (congestive heart failure) - Discharge Dispostion Condition at time of disposition: Guarded - Referrals Referrals: Khang Lopez MD [Primary Care Provider] - - Patient Instructions - Post Discharge Activity
[2017-09-30] MEDS ORDERED: ALBUTEROL SO4 2.5/IPRATROPIUM 0.5 INH SOL 3 ML VIAL.NEB. NEB ONE ×2 (11:35→12:02)
[2017-09-30 12:00] LABS: BASO % 0.6 % (0-2.0); EOS % 0.7 % (0-4.5); HEMATOCRIT 39.2 % (35.4-49); HEMOGLOBIN 12.4 GM/dL (11.7-16.9); LYMPH % 21.1 % (8-40); MCH 26.3 pg (25.7-33.7); MCHC 31.6 g/dl (32.0-35.9); MEAN CELL VOLUME 83.2 fl (80-96); MEAN PLT VOLUME 8.2 fl (7.5-11.1); NEUT % 65.6 % (42.8-82.8); PLATELET COUNT 179 K/MM3 (134-434); RBC 4.71 M/mm3 (4.00-5.60); RDW 20.2 % (11.9-15.9); WHITE BLOOD COUNT 6.7 K/mm3 (4.0-10.0)
[2017-09-30 12:00] LABS: VENOUS PC02 53.3 mmHg (38-52); VENOUS PH 7.39 (7.32-7.42); VENOUS PO2 44.7 mmHg (28-48)
[2017-09-30] MEDS ORDERED: cefTRIAXone 1 GM/50 ML BAG (PRE-DOCKED) IVPB ONE (12:16)
[2017-09-30] MEDS ORDERED: AZITHROMYCIN IVPB 500 MG in DEXTROSE 5%-WATER - 250 ML IVPB ONE (12:16)
[2017-09-30] MEDS: MILRINONE 20MG/100ML IVPB - 20,000 MCG/100 ML ML IVPB SCH (12:23)
[2017-09-30 12:24] LABS: INR 2.81 (0.82-1.09); PROTHROMBIN TIME (PATIENT) 31.7 SEC (9.98-11.88)
[2017-09-30 12:27] LABS: ACTIVATED PTT 47.8 SECONDS (26.9-34.4)
--- NOTE | 2017-09-30 12:56 | EKG ---
Test Reason : Blood Pressure : / mmHG Vent. Rate : 075 BPM Atrial Rate : 043 BPM P-R Int : 000 ms QRS Dur : 178 ms QT Int : 516 ms P-R-T Axes : 000 182 050 degrees QTc Int : 576 ms Ventricular-paced rhythm Biventricular pacemaker detected ABNORMAL ECG WHEN COMPARED WITH ECG OF 16-FEB-2017 23:47, NO SIGNIFICANT CHANGE WAS FOUND CLINICAL CORRELATION IS RECOMMENDED Confirmed by SHIVA HARVEY, JOSEPH ([id number]) on 09/30/2017 12:56:03 PM Referred By: Confirmed By:JOSEPH SHANNON MD
[2017-09-30] MEDS ORDERED: AZITHROMYCIN IVPB 250 ML IVPB ONE (13:25)
[2017-09-30] MEDS ORDERED: CEFTRIAXONE 1 GM/50 ML BAG ONE (13:25)
[2017-09-30 14:08] LABS: ALBUMIN 3.4 g/dl (3.4-5.0); ANION GAP 10 (8-16); BILIRUBIN,TOTAL 0.5 mg/dL (0.2-1.0); BLOOD UREA NITROGEN 97 mg/dL (7-18); CALCIUM 8.2 mg/dL (8.5-10.1); CHLORIDE 94 mmol/L (98-107); CO2 30 mmol/L (21-32); GLUCOSE,RANDOM 218 mg/dL (74-106); SGOT/AST 26 U/L (15-37); SGPT/ALT 20 U/L (12-78); SODIUM 134 mmol/L (136-145); TOT PROT 8.3 g/dl (6.4-8.2)
[2017-09-30 14:10] LABS: ALK PHOS 211 U/L (45-117)
[2017-09-30] MEDS ORDERED: SODIUM CHLORIDE 0.9% 1000 ML INFUS.BAG IV ONE (14:19)
--- NOTE | 2017-09-30 15:32 | HP ---
CHIEF COMPLAINT: cough x1 week PCP: Dr. Lopez HISTORY OF PRESENT ILLNESS: This is a 77 year old male with PMHx of anemia, asthma, a.fib, end stage systolic CHF (ICD placed 03/2017, on home milrinone), CAD (s/p NC 2011 and stenting x2), aortic valve replacement, COPD (on home O2), HTN, hypercholesterolemia, who presented to the ED with 1 week of cough and congestion. The patient reports he has had a non-productive cough x1 week and mild rhinorrhea. He denies any chest pain, palpitations, leg swelling, headache , dizziness, fever, chills, abdominal pain, nausea, vomiting, diarrhea, urinary symptoms. ER course was notable for: (1) Temp 97.8, pulse 75, BP 96/62, resp 16, O2 98% on 3L (2) INR 2.81 (3) Na 135, Cr 3 (4) BNP 2861 (5) Chest x-ray with large heart, left sided pacemaker, sternal sutures with valve replacement, right jugular line and congestive and infiltrative changes Recent Travel: denies PAST MEDICAL HISTORY: as above PAST SURGICAL HISTORY: as above Social History: Smoking: quit 7 years ago Alcohol: denies Drugs: denies Family History: Allergies No Known Drug Allergies Allergy (Verified 09/30/17 10:37) shellfish derived Allergy (Verified 09/30/17 10:37) CRAB ONLY HOME MEDICATIONS: Home Medications Medication Instructions Recorded Allopurinol [Zyloprim -] 100 mg PO DAILY 09/10/15 Atorvastatin Ca [Lipitor] 40 mg PO HS 09/10/15 Carvedilol 6.25 mg PO BID 09/10/15 Docusate Sodium [Colace -] 100 mg PO BID 09/10/15 Insulin NPL/Insulin Lispro 0 unit SQ PRN 09/10/15 [Humalog Mix 75-25 Vial] Milrinone Lactate/D5w [Milrinone 0 mg IV DAILY 09/10/15 0.2 mg/ml in D5w] Ranitidine [Zantac -] 75 mg PO DAILY 09/10/15 Albuterol 0.083% Nebulizer Jewell 1 amp NEB Q6H PRN #120 amp 09/14/15 [Ventolin 0.083% Nebulizer Soln -] Ferrous Sulfate [Feosol] 325 mg PO Q48H ud 04/23/16 Warfarin Na [Coumadin -] 2 mg PO DAILY@1800 09/06/16 Bupropion HCl [Wellbutrin -] 75 mg DAILY 09/08/16 Ascorbic Acid [Vitamin C -] 1,000 mg PO DAILY 11/24/16 Cholecalciferol (Vitamin D3) 1,000 unit PO DAILY 11/24/16 [Vitamin D -] Multivitamin [Poly-Vitamin] 1 each PO DAILY 11/24/16 Budesonide/Formeterol Fumarate 1 inh PO BID 02/17/17 [SYMBICORT 160/4.5mcg -] Torsemide [Demadex -] 20 mg PO BID 02/17/17 REVIEW OF SYSTEMS CONSTITUTIONAL: Absent: fever, chills, diaphoresis, generalized weakness, malaise, loss of appetite, weight change HEENT: Rhinorrhea x1 week. Absent: nasal congestion, throat pain, throat swelling, difficulty swallowing, mouth swelling, ear pain, eye pain, visual changes CARDIOVASCULAR: Absent: chest pain, syncope, palpitations, irregular heart rate , lightheadedness, peripheral edema RESPIRATORY: Dry cough x1 week. Absent: shortness of breath, dyspnea with exertion, orthopnea, wheezing, stridor, hemoptysis GASTROINTESTINAL:Absent: abdominal pain, abdominal distension, nausea, vomiting , diarrhea, constipation, melena, hematochezia GENITOURINARY: Absent: dysuria, frequency, urgency, hesitancy, hematuria, flank pain, genital pain MUSCULOSKELETAL: Absent: myalgia, arthralgia, joint swelling, back pain, neck pain SKIN: Absent: rash, itching, pallor HEMATOLOGIC/IMMUNOLOGIC: Absent: easy bleeding, easy bruising, lymphadenopathy, frequent infections ENDOCRINE:Absent: unexplained weight gain, unexplained weight loss, heat intolerance, cold intolerance NEUROLOGIC: Absent: headache, focal weakness or paresthesias, dizziness, seizure , mental status changes, bladder or bowel incontinence PSYCHIATRIC: Absent: anxiety, depression, suicidal or homicidal ideation, hallucinations. PHYSICAL EXAMINATION Vital Signs - 24 hr 09/30/17 10:39 Temperature 97.8 F Pulse Rate 75 Respiratory 16 Rate Blood Pressure 96/62 O2 Sat by Pulse 98 Oximetry (%) GENERAL: Awake, alert, and fully oriented, in no acute distress. On O2 via nasal cannula HEAD: Normal with no signs of trauma. EYES: Pupils equal, round and reactive to light, extraocular movements intact, sclera anicteric, conjunctiva clear. No lid lag. EARS, NOSE, THROAT: Ears normal, nares patent, oropharynx clear without exudates. Moist mucous membranes. NECK: Normal range of motion, supple without lymphadenopathy LUNGS: Breath sounds equal, clear to auscultation bilaterally. HEART: Regular rate and rhythm, normal S1 and S2 ABDOMEN: Soft, nontender, not distended, normoactive bowel sounds, no guarding, no rebound, no masses. No hepatomegaly or splenomegaly. MUSCULOSKELETAL: Normal range of motion at all joints. No bony deformities or tenderness. No CVA tenderness. UPPER EXTREMITIES: 2+ pulses, warm, well-perfused. No cyanosis. No clubbing. No peripheral edema. LOWER EXTREMITIES: 2+ pulses, warm, well-perfused. No calf tenderness. No peripheral edema. NEUROLOGICAL: Cranial nerves II-XII intact. Normal speech. Gait not observed PSYCHIATRIC: Cooperative. Good eye contact. Appropriate mood and affect. SKIN: Right chest wall catheter. Warm, dry, normal turgor, no rashes or lesions noted, normal capillary refill. Laboratory Results - last 24 hr 09/30/17 09/30/17 09/30/17 10:25 10:25 11:35 WBC RBC Hgb Hct MCV MCH MCHC RDW Plt Count MPV Neutrophils % Lymphocytes % Monocytes % Eosinophils % Basophils % PT with INR 31.70 H INR 2.81 H D PTT (Actin FS) 47.8 H VBG pH POC VBG pCO2 POC VBG pO2 Mixed VBG HCO3 Sodium 134 L Potassium 4.0 Chloride 94 L Carbon Dioxide 30 D Anion Gap 10 BUN 97 H D Creatinine 3.0 H D Creat Clearance w eGFR 20.29 Random Glucose 218 H D Lactic Acid Calcium 8.2 L Magnesium Total Bilirubin 0.5 D AST 26 D ALT 20 Alkaline Phosphatase 211 H D Creatine Kinase 44 Troponin I 0.05 B-Natriuretic Peptide 2861.75 H Total Protein 8.3 H Albumin 3.4 09/30/17 09/30/17 09/30/17 11:35 11:35 11:35 WBC RBC Hgb Hct MCV MCH MCHC RDW Plt Count MPV Neutrophils % Lymphocytes % Monocytes % Eosinophils % Basophils % PT with INR INR PTT (Actin FS) VBG pH 7.39 POC VBG pCO2 53.3 H POC VBG pO2 44.7 Mixed VBG HCO3 31.3 H Sodium Cancelled Potassium Cancelled Chloride Cancelled Carbon Dioxide Cancelled Anion Gap Cancelled BUN Cancelled Creatinine Cancelled Creat Clearance w eGFR Cancelled Random Glucose Cancelled Lactic Acid 1.1 Calcium Cancelled Magnesium Cancelled Total Bilirubin Cancelled AST Cancelled ALT Cancelled Alkaline Phosphatase Cancelled Creatine Kinase Cancelled Troponin I Cancelled B-Natriuretic Peptide Total Protein Cancelled Albumin Cancelled 09/30/17 09/30/17 11:50 11:50 WBC 6.7 RBC 4.71 Hgb 12.4 Hct 39.2 MCV 83.2 MCH 26.3 MCHC 31.6 L RDW 20.2 H Plt Count 179 MPV 8.2 Neutrophils % 65.6 Lymphocytes % 21.1 D Monocytes % 12.0 H Eosinophils % 0.7 Basophils % 0.6 PT with INR INR PTT (Actin FS) VBG pH POC VBG pCO2 POC VBG pO2 Mixed VBG HCO3 Sodium Potassium Chloride Carbon Dioxide Anion Gap BUN Creatinine Creat Clearance w eGFR Random Glucose Lactic Acid Calcium Magnesium Total Bilirubin AST ALT Alkaline Phosphatase Creatine Kinase Troponin I B-Natriuretic Peptide Cancelled Total Protein Albumin Assessment: This is a 77 year old male with PMHx of anemia, asthma, a.fib, end stage systolic CHF (ICD placed 03/2017, on home milrinone), CAD (s/p NC 2010 and stenting x2), aortic valve replacement, COPD (on home O2), HTN, hypercholesterolemia, who presented to the ED with 1 week of cough and congestion. Plan: 1) Community acquired pneumonia - Chest X-ray with infiltrative changes - Continue Azithromycin and Ceftriaxone - Monitor WBC, fever curve - Influenza A&B negative - F/u urine legionella Ag 2) JOHN - Baseline Cr ~ 1.8 - F/u kidney/bladder ultrasound to r/o obstruction or hydronephrosis - F/u urine electrolytes - NS 250ml bolus given in the ED - F/u nephrology consult 3) Chronic systolic CF, end stage heart failure s/p pacemaker - On home Milrinone, continue here - Weight down about 6kg from previous admission - Strict I&O - Daily weights - 1.5L fluid restriction - Continue home medications 4) A.fib - Continue Coumadin 5) CAD s/p stenting - Continue ASA 6) Aortic valve replacement 7) Chronic COPD - Does not appear to be in exacerbation at this time - Continue Albuterol nebs - Continue Symbicort - Continue O2 via NC 8) DM - BGM ACHS - ISS ACHS 9) F/E/N: - Sodium controlled, diabetic diet - Monitor electrolytes 10) Prophylaxis: - On Coumadin - PT evaluation 11) Dispo: - Requires continued inpatient care CODE STATUS: FULL CODE Visit type - Emergency Visit Emergency Visit: Yes ED Registration Date: 09/30/17 Care time: The patient presented to the Emergency Department on the above date and was hospitalized for further evaluation of their emergent condition. - New Patient This patient is new to me today: Yes Date on this admission: 09/30/17 - Critical Care Critical Care patient: No
[2017-09-30] MEDS ORDERED: ALBUTEROL SO4 0.083% IH SOL 2.5 MG/3 ML VIAL.NEB. NEB PRN (15:34)
[2017-09-30] MEDS: FERROUS SO4 325 MG TABLET (FP) PO SCH (17:24)
[2017-09-30] MEDS: INSULIN SLIDING SCALE (NOVOLOG) 1 VIAL SQ SCH ×2 (17:56→21:38)
[2017-09-30] MEDS ORDERED: INSULIN (NOVOLOG) ASPART 100 UNITS/ML 10ML VIAL ONE ×2 (18:02→18:03)
[2017-09-30] MEDS ORDERED: WARFARIN NA 1 MG TABLET (FP) ONE (18:44)
[2017-09-30] MEDS: WARFARIN NA 5 MG TABLET (UD) PO SCH (19:00)
[2017-09-30 19:23] LABS: URINE APPEARANCE TURBID; URINE BILIRUBIN NEGATIVE (NEGATIVE); URINE BLOOD 1+ (NEGATIVE); URINE COLOR AMBER; URINE GLUCOSE (UA) NEGATIVE (NEGATIVE); URINE KETONE NEGATIVE (NEGATIVE); URINE NITRITE NEGATIVE (NEGATIVE); URINE UROBILINOGEN NEGATIVE mg/dL (0.2-1.0)
[2017-09-30 19:49] LABS: URINE LEUK ESTERASE 3+ (NEGATIVE); URINE PROTEIN 1+ (NEGATIVE)
[2017-09-30 19:50] LABS: EPI CELLS FEW /HPF (FEW); URINE BACTERIA RARE /hpf (NONE SEEN)
[2017-09-30] MEDS: TORSEMIDE 20 MG TABLET (FP) PO SCH (21:33)
[2017-09-30] MEDS: DOCUSATE SODIUM 100 MG CAPSULE (FP) PO SCH (21:33)
[2017-09-30] MEDS: ATORVASTATIN CA 40 MG TABLET (FP) PO SCH (21:33)
[2017-09-30] MEDS: CARVEDILOL 6.25 MG TABLET (FP) PO SCH (21:33)
[2017-09-30] MEDS: BUDESONIDE/FORMETEROL FUMARATE 160/4.5 mcg INHALER IH SCH (21:48)
[2017-10-01] MEDS: MILRINONE 20MG/100ML IVPB - 20,000 MCG/100 ML ML IVPB SCH ×2 (04:06→12:01)
[2017-10-01 05:57] VITALS: BMI 25.1
[2017-10-01] MEDS: INSULIN SLIDING SCALE (NOVOLOG) 1 VIAL SQ SCH ×4 (06:14→22:30)
[2017-10-01 06:58] LABS: BASO % 0.5 % (0-2.0); EOS % 1.3 % (0-4.5); HEMATOCRIT 38.8 % (35.4-49); HEMOGLOBIN 12.4 GM/dL (11.7-16.9); LYMPH % 31.9 % (8-40); MCH 26.5 pg (25.7-33.7); MEAN CELL VOLUME 82.7 fl (80-96); MEAN PLT VOLUME 7.9 fl (7.5-11.1); MONO % 14.6 % (3.8-10.2); NEUT % 51.7 % (42.8-82.8); PLATELET COUNT 209 K/MM3 (134-434); RBC 4.69 M/mm3 (4.00-5.60); RDW 20.6 % (11.9-15.9); WHITE BLOOD COUNT 5.8 K/mm3 (4.0-10.0)
[2017-10-01 07:40] LABS: INR 3.42 (0.82-1.09); PROTHROMBIN TIME (PATIENT) 38.7 SEC (9.98-11.88)
[2017-10-01 07:51] LABS: CHLORIDE 94 mmol/L (98-107); POTASSIUM 3.9 mmol/L (3.5-5.1); SODIUM 136 mmol/L (136-145)
--- NOTE | 2017-10-01 08:01 | CON.CARD ---
Consult Consult Specialty:: cardio Referred by:: hospitalist (carson pineda) - History of Present Illness Chief Complaint: sob, cough History of Present Illness: 77 yo male here with cough. he reports frequent cough for approx 1 week. usually dry, sometimes white phlegm. he denies sob during this time. no abd or leg swelling. home wt stable around 184-185 per pt. He states he has been using his inhaler with no significant relief. denies sore throat, fever/chills, admits to rhinorrhea no cp, palpitations PMH: syst CHF CAD s/p SC and PCI afib CKD copd - Past Medical History Cardio/Vascular: Yes: AFIB, CAD, CHF, HTN, Hyperlipdemia, SC, Pulmonary Hypertension, Other (AICD placed) Pulmonary: Yes: COPD, O2 Dependent Renal/: Yes: Renal Inusuff, BPH Endocrine: Yes: Diabetes Mellitus - Past Surgical History Past Surgical History: Yes: AICD, CABG, Hernia Repair - Alcohol/Substance Use Hx Alcohol Use: No History of Substance Use: reports: None - Smoking History Smoking history: Former smoker Have you smoked in the past 12 months: No Aproximately how many cigarettes per day: 40 If you are a former smoker, when did you quit?: 2010 - Social History Usual Living Arrangement: With Spouse ADL: Independent History of Recent Travel: No Home Medications - Allergies Allergies/Adverse Reactions: Allergies Allergy/AdvReac Type Severity Reaction Status Date / Time No Known Drug Allergies Allergy Verified 09/30/17 10:37 shellfish derived Allergy Verified 09/30/17 10:37 - Home Medications Home Medications: Ambulatory Orders Allopurinol [Zyloprim -] 100 mg PO DAILY 09/10/15 Atorvastatin Ca [Lipitor] 40 mg PO HS 09/10/15 Carvedilol 6.25 mg PO BID 09/10/15 Docusate Sodium [Colace -] 100 mg PO BID 09/10/15 Insulin NPL/Insulin Lispro [Humalog Mix 75-25 Vial] 0 unit SQ PRN 09/10/15 Milrinone Lactate/D5w [Milrinone 0.2 mg/ml in D5w] 0 mg IV DAILY 09/10/15 Ranitidine [Zantac -] 75 mg PO DAILY 09/10/15 Albuterol 0.083% Nebulizer Jewell [Ventolin 0.083% Nebulizer Soln -] 1 amp NEB Q6H PRN #120 amp 09/14/15 Ferrous Sulfate [Feosol] 325 mg PO Q48H ud 04/23/16 Warfarin Na [Coumadin -] 2 mg PO DAILY@1800 09/06/16 Bupropion HCl [Wellbutrin -] 75 mg DAILY 09/08/16 Ascorbic Acid [Vitamin C -] 1,000 mg PO DAILY 11/24/16 Cholecalciferol (Vitamin D3) [Vitamin D -] 1,000 unit PO DAILY 11/24/16 Multivitamin [Poly-Vitamin] 1 each PO DAILY 11/24/16 Budesonide/Formeterol Fumarate [SYMBICORT 160/4.5mcg -] 1 inh PO BID 02/17/17 Torsemide [Demadex -] 20 mg PO BID 02/17/17 Aspirin 81 mg PO DAILY 09/30/17 Cholecalciferol (Vitamin D3) [Vitamin D3 -] 1,000 unit PO DAILY 09/30/17 Levothyroxine [Synthroid -] 25 mcg PO DAILY 09/30/17 Metolazone 2.5 mg PO DAILY 09/30/17 Spironolactone 25 mg PO DAILY 09/30/17 Warfarin Na [Coumadin] 2.5 mg PO ASDIR 09/30/17 Family Disease History - Family Disease History Family Disease History: Diabetes: Father, Heart Disease: Father Review of Systems - Review of Systems Constitutional: denies: Chills, Fever Eyes: denies: Eye Pain HENT: denies: Nasal Congestion Neck: denies: Stiffness Cardiovascular: denies: Palpitations Respiratory: denies: Orthopnea, PND Gastrointestinal: denies: Diarrhea, Rectal Bleeding Genitourinary: denies: Burning, Hematuria Musculoskeletal: denies: Muscle Pain Integumentary: denies: Rash Neurological: denies: Numbness, Seizure, Syncope Endocrine: denies: Excessive Sweating Hematology/Lymphatic: denies: Excessive Bleeding Vital Signs: Vital Signs Temperature 98.1 F 10/01/17 05:54 Pulse Rate 72 10/01/17 05:54 Respiratory Rate 18 10/01/17 05:54 Blood Pressure 118/67 10/01/17 05:54 O2 Sat by Pulse Oximetry (%) 95 10/01/17 05:55 Constitutional: Yes: Well Nourished, No Distress Eyes: No: Sclera Icterus HENT: No: Nasal Congestion Neck: No: Decreased ROM Respiratory: Yes: CTA Bilaterally (decr sounds diffusely (sec to copd)). No: Accessory Muscle Use, Rales, Wheezes Gastrointestinal: Yes: Normal Bowel Sounds. No: Distention, Hepatomegaly, Palpable Mass, Tenderness Cardiovascular: Yes: Regular Rate and Rhythm JVD: Yes Carotid Bruit: No PMI: Non-Displaced Heart Sounds: Yes: S1, S2. No: Gallop Murmur: No: Systolic Murmur, Diastolic Murmur Musculoskeletal: Yes: Other (No kyphosis) Extremities: No: Cold, Cyanosis Edema: No Peripheral Pulses: 2+ Left Carotid, 2+ Right Carotid, 2+ Left Doralis Pedis, 2+ Right Dorsalis Pedis Integumentary: No: Jaundice Neurological: Yes: Alert, Oriented (x3) Psychiatric: No: Agitated - Other Data Labs, Other Data: INR, PTT INR 3.42 (0.82-1.09) H 10/01/17 06:07 Troponin, BNP 09/30/17 09/30/17 09/30/17 10:25 10:25 11:35 Troponin I 0.05 Cancelled B-Natriuretic Peptide 2861.75 H 09/30/17 09/30/17 11:50 21:05 Troponin I 0.06 H B-Natriuretic Peptide Cancelled Troponin, BNP 09/30/17 09/30/17 09/30/17 10:25 10:25 11:35 Troponin I 0.05 Cancelled B-Natriuretic Peptide 2861.75 H 09/30/17 09/30/17 11:50 21:05 Troponin I 0.06 H B-Natriuretic Peptide Cancelled Laboratory Tests 09/30/17 09/30/17 09/30/17 10:25 10:25 11:50 WBC 6.7 Hgb 12.4 Plt Count 179 INR Sodium 134 L Potassium 4.0 Carbon Dioxide 30 D BUN 97 H D Creatinine 3.0 H D AST 26 D ALT 20 Troponin I 0.05 B-Natriuretic Peptide 2861.75 H 10/01/17 06:07 WBC Hgb Plt Count INR 3.42 H Sodium Potassium Carbon Dioxide BUN Creatinine AST ALT Troponin I B-Natriuretic Peptide tele: v-paced Assessment/Plan CXR (images reviewed): trace-small bilat effusions; vasc redistribution pattern. alveolar and interstitial infiltrates bilat low/mid lung calderon. no signif change vs 02/27 prior ECG: NSR, bi-V paced Echo 05/2016: sev lve, global hk, sev dec lvef, mild rve, nl rv fcn, estefania, mild- mod mr, mv ring, tv ring, mild tr, mild pr, mild phtn, ivc mild dil a/p: 76 year old man with PMH of IDDM, COPD (O2 dependant) HTN, HLD, Afib (on coumadin), CAD s/p CABG 2012, end stage CHF with ICD placement (on milrinone pump), PVD, BPH here with sob. URI sx's (cough, rhinorrhea), h/o copd: - flu swab negative - ? if a.e. copd at present - per hospitalist chronic systolic CHF, end stage systolic heart failure s/p ICD, on home milrinone infusion: - pt had cardiomems PAP monitor implant with dr harden ([facility]) and has been managed by him since last admit here. - on destination therapy home milrinone infusion, ? if dr harden increased the dose. - baseline renal fxn has worsened on recent labs (high 2's range) - wt 202 on discharge 03/13 following diuresis with lasix 100 iv bid, metolazone 5mg. currently 185 - BNP 2K (prior range 2K-7K), low GFR confounds - ER labs appear reserve officer than recent baseline, but bun/creat today back down in his recent baseline range. CXR appears unchanged vs 03/13. suspect he is not decompensated despite JVD (chronic in him)--no periph edema which is consistently CHF finding in him, and no increase in wt. - please confirm home torsemide regimen with . - receiving torsemide 20 bid here. low threshold to hold diuretic if renal fxn worsens further. JOHN on CKD, h/o cardiorenal syndrome: - recent outpt creat ranging 2.6-2.9 range - bun/creat above baseline here afib - rate controlled on coreg - cont coumadin per INR (target 2-3) VT: - intermittent brief runs of NSVT on tele, chronic finding on prior admits - has ICD - on max tolerated coreg dose - replete lytes prn CAD s/p SC with PCI (and ? TV repair at that time): - No anginal symptoms, no signs acs. - Con't home ac, plavix, atorvastatin, coreg PVD - con't AC, statin. HTN: controlled on coreg HLD: con't statin.
[2017-10-01 08:18] LABS: ALBUMIN 3.4 g/dl (3.4-5.0); ALK PHOS 207 U/L (45-117); ANION GAP 12 (8-16); BILIRUBIN,TOTAL 0.8 mg/dL (0.2-1.0); BLOOD UREA NITROGEN 93 mg/dL (7-18); CALCIUM 8.5 mg/dL (8.5-10.1); CO2 30 mmol/L (21-32); CREATININE 2.8 mg/dL (0.7-1.3); GLUCOSE,RANDOM 112 mg/dL (74-106); SGOT/AST 27 U/L (15-37); SGPT/ALT 18 U/L (12-78); TOT PROT 8.2 g/dl (6.4-8.2)
--- NOTE | 2017-10-01 09:00 | CON.NEP ---
Consult Consult Specialty:: Nephrology Referred by:: SINCERE Adame Reason for Consultation:: JOHN on CKD in setting of HF - History of Present Illness Chief Complaint: Cough/SOB History of Present Illness: This is a 77 year old gentleman with PMhx of End stage HF on Milrinone gtt, AICD , CKD (baseline CR 1.7-2), CAD, AVR, COPD, Hypertension who presented to the ED with SOB and found to have infiltrative and congestive changes on CXR with Cr of 2.8. Pt reports good urine output at home, sometimes has urinary hesitency. No hematuira, flank pain, dysuria. + NSAID use at home (Motrin Q4h as needed to go to sleep). No recent contrast exposure. No N/V/D. No fever or chills. Reports that he feels about the same in the hospital as he did prior to getting here. - History Source History Provided By: Patient Limitations to Obtaining History: No Limitations - Past Medical History Cardio/Vascular: Yes: AFIB, CAD, CHF, HTN, Hyperlipdemia, CO, Pulmonary Hypertension, Other (AICD placed) Pulmonary: Yes: COPD, O2 Dependent Renal/: Yes: Renal Inusuff, BPH Endocrine: Yes: Diabetes Mellitus - Past Surgical History Past Surgical History: Yes: AICD, CABG, Hernia Repair - Alcohol/Substance Use Hx Alcohol Use: No History of Substance Use: reports: None - Smoking History Smoking history: Former smoker Have you smoked in the past 12 months: No Aproximately how many cigarettes per day: 40 If you are a former smoker, when did you quit?: 2010 - Social History Usual Living Arrangement: With Spouse ADL: Independent History of Recent Travel: No Home Medications - Allergies Allergies/Adverse Reactions: Allergies Allergy/AdvReac Type Severity Reaction Status Date / Time No Known Drug Allergies Allergy Verified 09/30/17 10:37 shellfish derived Allergy Verified 09/30/17 10:37 - Home Medications Home Medications: Ambulatory Orders Allopurinol [Zyloprim -] 100 mg PO DAILY 09/10/15 Atorvastatin Ca [Lipitor] 40 mg PO HS 09/10/15 Carvedilol 6.25 mg PO BID 09/10/15 Docusate Sodium [Colace -] 100 mg PO BID 09/10/15 Insulin NPL/Insulin Lispro [Humalog Mix 75-25 Vial] 0 unit SQ PRN 09/10/15 Milrinone Lactate/D5w [Milrinone 0.2 mg/ml in D5w] 0 mg IV DAILY 09/10/15 Ranitidine [Zantac -] 75 mg PO DAILY 09/10/15 Albuterol 0.083% Nebulizer Jewell [Ventolin 0.083% Nebulizer Soln -] 1 amp NEB Q6H PRN #120 amp 09/14/15 Ferrous Sulfate [Feosol] 325 mg PO Q48H ud 04/23/16 Warfarin Na [Coumadin -] 2 mg PO DAILY@1800 09/06/16 Bupropion HCl [Wellbutrin -] 75 mg DAILY 09/08/16 Ascorbic Acid [Vitamin C -] 1,000 mg PO DAILY 11/24/16 Cholecalciferol (Vitamin D3) [Vitamin D -] 1,000 unit PO DAILY 11/24/16 Multivitamin [Poly-Vitamin] 1 each PO DAILY 11/24/16 Budesonide/Formeterol Fumarate [SYMBICORT 160/4.5mcg -] 1 inh PO BID 02/17/17 Torsemide [Demadex -] 20 mg PO BID 02/17/17 Aspirin 81 mg PO DAILY 09/30/17 Cholecalciferol (Vitamin D3) [Vitamin D3 -] 1,000 unit PO DAILY 09/30/17 Levothyroxine [Synthroid -] 25 mcg PO DAILY 09/30/17 Metolazone 2.5 mg PO DAILY 09/30/17 Spironolactone 25 mg PO DAILY 09/30/17 Warfarin Na [Coumadin] 2.5 mg PO ASDIR 09/30/17 Family Disease History - Family Disease History Family Disease History: Diabetes: Father, Heart Disease: Father Review of Systems - Review of Systems Constitutional: denies: Chills, Fever, Loss of Appetite, Night Sweats Eyes: reports: No Symptoms HENT: reports: No Symptoms Neck: reports: No Symptoms Cardiovascular: reports: Edema, Shortness of Breath Respiratory: reports: Cough, Orthopnea, SOB. denies: SOB on Exertion Gastrointestinal: reports: No Symptoms Genitourinary: reports: No Symptoms Musculoskeletal: reports: No Symptoms Integumentary: reports: No Symptoms Neurological: reports: No Symptoms Nephrology Consult - Height Height: 6 ft - Weight Weight: 84.141 kg - BMI Body Mass Index (BMI): 25.1 - Lab Results CBC,BMP: CBC, BMP 10/01/17 06:07 10/01/17 06:07 Anion Gap: Anion Gap Anion Gap 12 (8-16) 10/01/17 06:07 - Imaging Chest X-ray: Report Reviewed - Physical Examination Vital Signs: Vital Signs Temperature 98.1 F 10/01/17 05:54 Pulse Rate 72 10/01/17 05:54 Respiratory Rate 18 10/01/17 05:54 Blood Pressure 118/67 10/01/17 05:54 O2 Sat by Pulse Oximetry (%) 95 10/01/17 05:55 Constitutional: Yes: No Distress Eyes: Yes: Conjunctiva Clear HENT: Yes: Atraumatic Neck: Yes: Supple, Trachea Midline Cardiovascular: Yes: Regular Rate and Rhythm Respiratory: Yes: Regular, Diminished, On Nasal O2, Wheezes Gastrointestinal: Yes: Normal Bowel Sounds, Soft Renal/: No: Anuria, Bladder Distention, CVA Tenderness - Left, CVA Tenderness - Right, Hematuria Extremities: No: Cold, Cool, Cyanosis Edema: Yes Edema: LLE: Trace, RLE: Trace Neurological: Yes: Alert, Oriented Assessment/Plan 77 year old gentleman with PMhx of End stage HF on Milrinone gtt, AICD, CKD ( baseline CR 1.7-2), CAD, AVR, COPD, Hypertension who presented to the ED with SOB and found to have infiltrative and congestive changes on CXR with Cr of 2.8. #SOB/Cough secondary to PNA +/- acute HF s/p IV Abx, on Ceftriaxone and Azithromax now f/u cultures Influenza negative on Milirone gtt and Toresemide Cardiology to eval #JOHN on CKD ? ATN from NSAIDs vs renal hypoprofusion check urine for FeURea f/u imaging of bladder and kidney continue diurtics as needed for HF Trend BUN/Cr avoid any further nsaids can continue aldactone for now would avoid introduction of ALESSANDRA/ARB for now Thank you Will follow Jeyson Terry DO Current Medications Albuterol Sulfate (Ventolin 0.083% Nebulizer Soln -) 1 amp NEB Q6H PRN PRN Reason: SHORT OF BREATH/WHEEZING Allopurinol (Zyloprim -) 100 mg PO DAILY [facility] Ascorbic Acid (Vitamin C -) 1,000 mg PO DAILY [facility] Aspirin (Ecotrin -) 81 mg PO DAILY [facility] Atorvastatin Calcium (Lipitor -) 40 mg PO HS [facility] Last Admin: 09/30/17 21:33 Dose: 40 mg Budesonide/Formoterol Fumarate (Symbicort 160/4.5mcg -) 1 puff IH BID [facility] Last Admin: 09/30/17 21:48 Dose: 1 puff Bupropion HCl (Wellbutrin -) 75 mg PO DAILY [facility] Carvedilol (Coreg -) 6.25 mg PO BID [facility] Last Admin: 09/30/17 21:33 Dose: 6.25 mg Cholecalciferol (Vitamin D3 -) 1,000 unit PO DAILY [facility] Docusate Sodium (Colace -) 100 mg PO BID [facility] Last Admin: 09/30/17 21:33 Dose: 100 mg Ferrous Sulfate (Feosol -) 325 mg PO Q48H [facility] Last Admin: 09/30/17 17:24 Dose: Not Given Milrinone Lactate/Dextrose (Milrinone 20mg/100ml Ivpb -) 20,000 mcg in 100 mls @ 8.906 mls/hr IVPB TITR [facility]; 0.35 MCG/KG/MIN PRN Reason: Protocol Last Admin: 10/01/17 04:06 Dose: 0.35 mcg/kg/min, 8.906 mls/hr Azithromycin 250 mg/ Dextrose 250 mls @ 250 mls/hr IVPB DAILY [facility] Ceftriaxone Sodium 1 gm/ (Dextrose) 50 mls @ 100 mls/hr IVPB DAILY [facility] Insulin Aspart (Novolog Vial Sliding Scale -) 1 vial SQ ACHS [facility] PRN Reason: Protocol Last Admin: 10/01/17 06:14 Dose: Not Given Multivitamins/Minerals/Vitamin C (Tab-A-Vit -) 1 tab PO DAILY [facility] Ranitidine HCl (Zantac -) 75 mg PO DAILY [facility] Spironolactone (Aldactone -) 25 mg PO DAILY [facility] Torsemide (Demadex -) 20 mg PO BID [facility] Last Admin: 09/30/17 21:33 Dose: 20 mg Warfarin Sodium (Coumadin -) 2 mg PO DAILY@1800 [facility] Last Admin: 09/30/17 19:00 Dose: 2 mg
[2017-10-01] MEDS: RANITIDINE HCL 150 MG TABLET (FP) PO SCH (09:53)
[2017-10-01] MEDS: TORSEMIDE 20 MG TABLET (FP) PO SCH ×2 (09:53→22:30)
[2017-10-01] MEDS: ASCORBIC ACID 500 MG TABLET (FP) PO SCH (09:53)
[2017-10-01] MEDS: ASPIRIN COATED 81 MG TABLET.EC PO SCH (09:54)
[2017-10-01] MEDS: CARVEDILOL 6.25 MG TABLET (FP) PO SCH ×2 (09:54→22:30)
[2017-10-01] MEDS: ALLOPURINOL 100 MG TABLET (FP) PO SCH (09:54)
[2017-10-01] MEDS: MULTIVITAMINS (DAILY MVI) TABLET (FP) PO SCH (09:54)
[2017-10-01] MEDS: DOCUSATE SODIUM 100 MG CAPSULE (FP) PO SCH ×2 (09:54→22:30)
[2017-10-01] MEDS: SPIRONOLACTONE 25 MG TABLET (FP) PO SCH (09:54)
[2017-10-01] MEDS: buPROPion HCL 75 MG TABLET PO SCH (09:54)
[2017-10-01] MEDS: BUDESONIDE/FORMETEROL FUMARATE 160/4.5 mcg INHALER IH SCH ×2 (09:55→22:31)
[2017-10-01] MEDS ORDERED: PT OWN MED DRAWER 7, Y5N ONE (09:57)
[2017-10-01] MEDS ORDERED: CEFTRIAXONE 1 GM in DEXTROSE 5%-WATER - 50 ML IVPB SCH (10:00)
[2017-10-01] MEDS ORDERED: CHOLECALCIFEROL (VITAMIN D3) 400 UNIT TABLET (FP) PO SCH (10:00)
[2017-10-01] MEDS ORDERED: CEFTRIAXONE 1 G/50 ML PREMIX 50 ML IVPB SCH (11:16)
[2017-10-01] MEDS ORDERED: CHOLECALCIFEROL (VITAMIN D3) 1,000 UNIT TABLET (FP) PO SCH (11:36)
--- NOTE | 2017-10-01 12:15 | PN ---
Progress Note (short form) - Note Progress Note: Subjective: The patient was seen and examined at the bedside, he reports feeling "the same" today. Current Medications Generic Name Dose Route Start Last Admin Trade Name Freq PRN Reason Stop Dose Admin Albuterol Sulfate 1 amp 09/30/17 15:34 Ventolin 0.083% Nebulizer Soln - NEB Q6H PRN SHORT OF BREATH/WHEEZING Allopurinol 100 mg 10/01/17 10:00 10/01/17 09:54 Zyloprim - PO 100 mg DAILY QUINTON Administration Ascorbic Acid 1,000 mg 10/01/17 10:00 10/01/17 09:53 Vitamin C - PO 1,000 mg DAILY QU[facility]ON Administration Aspirin 81 mg 10/01/17 10:00 10/01/17 09:54 Ecotrin - PO 81 mg DAILY [facility] Administration Atorvastatin Calcium 40 mg 09/30/17 22:00 09/30/17 21:33 Lipitor - PO 40 mg HS [facility]ON Administration Budesonide/Formoterol Fumarate 1 puff 09/30/17 22:00 10/01/17 09:55 Symbicort 160/4.5mcg - IH 1 puff BID QUINTON Administration Bupropion HCl 75 mg 10/01/17 10:00 10/01/17 09:54 Wellbutrin - PO 75 mg DAILY [facility] Administration Carvedilol 6.25 mg 09/30/17 22:00 10/01/17 09:54 Coreg - PO 6.25 mg BID QU[facility]ON Administration Cholecalciferol 1,000 unit 10/01/17 11:36 Vitamin D3 - PO DAILY QU[facility]ON Docusate Sodium 100 mg 09/30/17 22:00 10/01/17 09:54 Colace - PO 100 mg BID [facility] Administration Ferrous Sulfate 325 mg 09/30/17 15:45 09/30/17 17:24 Feosol - PO Not Given Q48H [facility] Milrinone Lactate/Dextrose 20,000 mcg in 100 mls @ 8.906 mls/hr 09/30/17 12: 00 10/01/17 12:01 Milrinone 20mg/100ml Ivpb - IVPB 0.35 mcg/kg/min TITR QUINTON 8.906 mls/hr Protocol Administration 0.35 MCG/KG/MIN Azithromycin 250 mg/ Dextrose 250 mls @ 250 mls/hr 10/01/17 10:00 IVPB DAILY [facility]ON CEFTRIAXONE 1 G/50 ML PREMIX 50 mls @ 100 mls/hr 10/01/17 11:16 Ceftriaxone 1 Gm-D5w Bag IVPB DAILY [facility] Insulin Aspart 1 vial 09/30/17 16:30 10/01/17 12:00 Novolog Vial Sliding Scale - SQ 4 units ACHS QUINTON Administration Protocol Multivitamins/Minerals/Vitamin C 1 tab 10/01/17 10:00 10/01/17 09:54 Tab-A-Vit - PO 1 tab DAILY [facility]ON Administration Ranitidine HCl 75 mg 10/01/17 10:00 10/01/17 09:53 Zantac - PO 75 mg DAILY [facility] Administration Spironolactone 25 mg 10/01/17 10:00 10/01/17 09:54 Aldactone - PO 25 mg DAILY [facility] Administration Torsemide 20 mg 09/30/17 22:00 10/01/17 09:53 Demadex - PO 20 mg BID QU[facility]ON Administration Warfarin Sodium 2 mg 09/30/17 18:00 09/30/17 19:00 Coumadin - PO 2 mg DAILY@1800 QUINTON Administration Objective: Vital Signs Period Temp Pulse Resp BP Sys/Orantes Pulse Ox Last 24 Hr 98 F-98.7 F 60-76 18-22 99-118/62-76 95-97 Physical Exam: General: CBCD WBC 5.8 K/mm3 (4.0-10.0) 10/01/17 06:07 RBC 4.69 M/mm3 (4.00-5.60) 10/01/17 06:07 Hgb 12.4 GM/dL (11.7-16.9) 10/01/17 06:07 Hct 38.8 % (35.4-49) 10/01/17 06:07 MCV 82.7 fl (80-96) 10/01/17 06:07 MCHC 32.0 g/dl (32.0-35.9) 10/01/17 06:07 RDW 20.6 % (11.9-15.9) H 10/01/17 06:07 Plt Count 209 K/MM3 (134-434) 10/01/17 06:07 MPV 7.9 fl (7.5-11.1) 10/01/17 06:07 CMP Sodium 136 mmol/L (136-145) 10/01/17 06:07 Potassium 3.9 mmol/L (3.5-5.1) 10/01/17 06:07 Chloride 94 mmol/L (98-107) L 10/01/17 06:07 Carbon Dioxide 30 mmol/L (21-32) 10/01/17 06:07 Anion Gap 12 (8-16) 10/01/17 06:07 BUN 93 mg/dL (7-18) H 10/01/17 06:07 Creatinine 2.8 mg/dL (0.7-1.3) H 10/01/17 06:07 Creat Clearance w eGFR 21.97 (>60) 10/01/17 06:07 Random Glucose 112 mg/dL (74-106) H D 10/01/17 06:07 Calcium 8.5 mg/dL (8.5-10.1) 10/01/17 06:07 Total Bilirubin 0.8 mg/dL (0.2-1.0) D 10/01/17 06:07 AST 27 U/L (15-37) 10/01/17 06:07 ALT 18 U/L (12-78) 10/01/17 06:07 Alkaline Phosphatase 207 U/L (45-117) H 10/01/17 06:07 Total Protein 8.2 g/dl (6.4-8.2) 10/01/17 06:07 Albumin 3.4 g/dl (3.4-5.0) 10/01/17 06:07 CARDIAC ENZYMES Creatine Kinase 52 IU/L (39-308) 09/30/17 21:05 Troponin I 0.06 ng/ml (0.00-0.05) H 09/30/17 21:05 Microbiology 09/30/17 11:35 Nasopharyngeal Swab Influenza Types A,B Antigen (MILLER) - Final 09/30/17 11:35 Nasopharyngeal Swab - Final Assessment: This is a 77 year old male with PMHx of anemia, asthma, a.fib, end stage systolic CHF (ICD placed 03/2017, on home milrinone), CAD (s/p KS 2010 and stenting x2), aortic valve replacement?, COPD (on home O2), HTN, hypercholesterolemia, who presented to the ED with 1 week of cough and congestion. Plan: 1) Community acquired pneumonia - Chest X-ray with infiltrative changes - Continue Azithromycin and Ceftriaxone - Monitor WBC, fever curve - Influenza A&B negative - F/u urine legionella Ag 2) JOHN - Baseline Cr ~ 1.8 - F/u kidney/bladder ultrasound to r/o obstruction or hydronephrosis - F/u urine electrolytes - Avoid Luis Carlos/ARB - Appreciate nephrology consult 3) Chronic systolic CF, end stage heart failure s/p pacemaker - On home Milrinone, continue here - Weight down about 6kg from previous admission - Strict I&O - Daily weights - 1.5L fluid restriction - Continue Toresemide for now at home dose. If worsening kidney function will consider holding - Continue home medications 4) A.fib - INR supratherapeutic, hold Coumadin tonight 5) CAD s/p stenting - Continue ASA 6) Tricuspid valve repair - aortic valve replacement? awaiting confirmation from - Goal INR 2-3 per cards 7) Chronic COPD - Does not appear to be in exacerbation at this time - Continue Albuterol nebs - Continue Symbicort - Continue O2 via NC 8) DM - BGM ACHS - ISS ACHS 9) F/E/N: - Sodium controlled, diabetic diet - Monitor electrolytes 10) Prophylaxis: - On Coumadin - PT evaluation 11) Dispo: - Requires continued inpatient care CODE STATUS: FULL CODE
--- NOTE | 2017-10-01 12:20 | CON.PULM ---
Consult Consult Specialty:: PULMONARY Referred by:: SINCERE Adame Reason for Consultation:: shortness of breath - History of Present Illness Chief Complaint: shortness of breath History of Present Illness: 77yo male with h/o HTN, hypercholesterolemia, CAD, severe LV systolic dysfunction s/p ICD on home milrinone, atrial fibrillation, COPD, chronic hypoxic respiratory failure on home O2 who was admitted with worsening shortness of breath, cough and congestion x 1 week. Reports his sick with URI symptoms. +cough mostly nonproductive. No fevers, chills or sweats. No nausea or vomiting. No chest pain or palpitations. - History Source History Provided By: Patient, Medical Record Limitations to Obtaining History: No Limitations - Past Medical History Cardio/Vascular: Yes: AFIB, CAD, CHF, HTN, Hyperlipdemia, RI, Pulmonary Hypertension, Other (AICD placed) Pulmonary: Yes: COPD, O2 Dependent Renal/: Yes: Renal Inusuff, BPH Endocrine: Yes: Diabetes Mellitus - Past Surgical History Past Surgical History: Yes: AICD, CABG, Hernia Repair - Alcohol/Substance Use Hx Alcohol Use: No History of Substance Use: reports: None - Smoking History Smoking history: Former smoker Have you smoked in the past 12 months: No Aproximately how many cigarettes per day: 40 If you are a former smoker, when did you quit?: 2010 - Social History Usual Living Arrangement: With Spouse ADL: Independent History of Recent Travel: No Home Medications - Allergies Allergies/Adverse Reactions: Allergies Allergy/AdvReac Type Severity Reaction Status Date / Time No Known Drug Allergies Allergy Verified 09/30/17 10:37 shellfish derived Allergy Verified 09/30/17 10:37 - Home Medications Home Medications: Ambulatory Orders Allopurinol [Zyloprim -] 100 mg PO DAILY 09/10/15 Atorvastatin Ca [Lipitor] 40 mg PO HS 09/10/15 Carvedilol 6.25 mg PO BID 09/10/15 Docusate Sodium [Colace -] 100 mg PO BID 09/10/15 Insulin NPL/Insulin Lispro [Humalog Mix 75-25 Vial] 0 unit SQ PRN 09/10/15 Milrinone Lactate/D5w [Milrinone 0.2 mg/ml in D5w] 0 mg IV DAILY 09/10/15 Ranitidine [Zantac -] 75 mg PO DAILY 09/10/15 Albuterol 0.083% Nebulizer Jewell [Ventolin 0.083% Nebulizer Soln -] 1 amp NEB Q6H PRN #120 amp 09/14/15 Ferrous Sulfate [Feosol] 325 mg PO Q48H ud 04/23/16 Warfarin Na [Coumadin -] 2 mg PO DAILY@1800 09/06/16 Bupropion HCl [Wellbutrin -] 75 mg DAILY 09/08/16 Ascorbic Acid [Vitamin C -] 1,000 mg PO DAILY 11/24/16 Cholecalciferol (Vitamin D3) [Vitamin D -] 1,000 unit PO DAILY 11/24/16 Multivitamin [Poly-Vitamin] 1 each PO DAILY 11/24/16 Budesonide/Formeterol Fumarate [SYMBICORT 160/4.5mcg -] 1 inh PO BID 02/17/17 Torsemide [Demadex -] 20 mg PO BID 02/17/17 Aspirin 81 mg PO DAILY 09/30/17 Cholecalciferol (Vitamin D3) [Vitamin D3 -] 1,000 unit PO DAILY 09/30/17 Levothyroxine [Synthroid -] 25 mcg PO DAILY 09/30/17 Metolazone 2.5 mg PO DAILY 09/30/17 Spironolactone 25 mg PO DAILY 09/30/17 Warfarin Na [Coumadin] 2.5 mg PO ASDIR 09/30/17 Family Disease History - Family Disease History Family Disease History: Diabetes: Father, Heart Disease: Father Review of Systems - Review of Systems Constitutional: reports: Weakness. denies: Chills, Fever Eyes: denies: Recent Change in Vision HENT: reports: Nasal Congestion, Throat Pain Neck: denies: Stiffness, Tenderness Cardiovascular: reports: Shortness of Breath. denies: Chest Pain, Edema, Palpitations Respiratory: reports: Cough, Exercise Intolerance, SOB. denies: Hemoptysis, Wheezing Gastrointestinal: denies: Abdominal Pain, Nausea, Vomiting Genitourinary: denies: Dysuria, Hematuria Neurological: denies: Headache Physical Exam Vital Sings: Vital Signs Temperature 98 F 10/01/17 10:00 Pulse Rate 75 10/01/17 10:00 Respiratory Rate 22 10/01/17 10:00 Blood Pressure 99/62 10/01/17 10:00 O2 Sat by Pulse Oximetry (%) 96 10/01/17 09:00 Constitutional: Yes: Calm Eyes: Yes: Conjunctiva Clear, EOM Intact HENT: Yes: Atraumatic, Normocephalic Neck: Yes: Supple, Trachea Midline Cardiovascular: Yes: Pulse Irregular Respiratory: Yes: Rales (scattered), Rhonchi (scattered). No: Wheezes ...Clubbing: No Gastrointestinal: Yes: Normal Bowel Sounds, Soft. No: Tenderness Edema: No Labs: CBC, BMP 10/01/17 06:07 10/01/17 06:07 Imaging - Results Chest X-ray: Report Reviewed, Image Reviewed (congestive changes) Assessment/Plan URI Severe LV Systolic Dysfunction s/p ICD Pulmonary HTN COPD Chronic Hypoxic Respiratory Failure Atrial Fibrillation Acute on Chronic Renal Failure HTN - on empiric antibiotics - f/u cultures - inhaled bronchodilators - can monitor off systemic steroids at this time - O2 to keep SpO2 >90% - CXR findings appear unchanged or slightly improved from last, appears relatively euvolemic - monitor urine output, creatinine - rate control - continue anticoagulation - continue home milrinone Thank you for this consult Solomon Ramos MD
[2017-10-01] MEDS: AZITHROMYCIN IVPB 250 MG in DEXTROSE 5%-WATER - 250 ML IVPB SCH (13:01)
[2017-10-01] MEDS: CEFTRIAXONE 1 G/50 ML PREMIX 50 ML IVPB SCH (13:02)
[2017-10-01] MEDS: CHOLECALCIFEROL (VITAMIN D3) 1,000 UNIT TABLET (FP) PO SCH (13:03)
[2017-10-01] MEDS: ATORVASTATIN CA 40 MG TABLET (FP) PO SCH (22:30)
[2017-10-02] MEDS: INSULIN SLIDING SCALE (NOVOLOG) 1 VIAL SQ SCH ×4 (06:01→21:40)
[2017-10-02 06:45] LABS: BASO % 0.3 % (0-2.0); EOS % 1.7 % (0-4.5); HEMATOCRIT 36.9 % (35.4-49); HEMOGLOBIN 11.9 GM/dL (11.7-16.9); LYMPH % 21.9 % (8-40); MCH 26.6 pg (25.7-33.7); MCHC 32.2 g/dl (32.0-35.9); MEAN CELL VOLUME 82.5 fl (80-96); MEAN PLT VOLUME 8.4 fl (7.5-11.1); MONO % 17.1 % (3.8-10.2); PLATELET COUNT 226 K/MM3 (134-434); RBC 4.48 M/mm3 (4.00-5.60); RDW 20.2 % (11.9-15.9); WHITE BLOOD COUNT 6.9 K/mm3 (4.0-10.0)
[2017-10-02 07:08] LABS: ALBUMIN 3.4 g/dl (3.4-5.0); ANION GAP 11 (8-16); BILIRUBIN,TOTAL 0.8 mg/dL (0.2-1.0); BLOOD UREA NITROGEN 101 mg/dL (7-18); CALCIUM 8.4 mg/dL (8.5-10.1); CHLORIDE 95 mmol/L (98-107); CO2 29 mmol/L (21-32); CREATININE 2.8 mg/dL (0.7-1.3); GLUCOSE,RANDOM 121 mg/dL (74-106); PHOSPHOROUS 3.8 mg/dL (2.5-4.9); POTASSIUM 4.3 mmol/L (3.5-5.1); SGOT/AST 24 U/L (15-37); SGPT/ALT 18 U/L (12-78); SODIUM 135 mmol/L (136-145); TOT PROT 8.2 g/dl (6.4-8.2)
[2017-10-02 07:09] LABS: ALK PHOS 196 U/L (45-117)
--- NOTE | 2017-10-02 08:43 | PN ---
Progress Note, Physician Chief Complaint: cough History of Present Illness: cough has improved. not started on steroids by pulm yesterday. no sob. no leg swelling. no cp, palpitations - Current Medication List Current Medications: Active Medications Albuterol Sulfate (Ventolin 0.083% Nebulizer Soln -) 1 amp NEB Q6H PRN PRN Reason: SHORT OF BREATH/WHEEZING Allopurinol (Zyloprim -) 100 mg PO DAILY [facility] Last Admin: 10/01/17 09:54 Dose: 100 mg Ascorbic Acid (Vitamin C -) 1,000 mg PO DAILY [facility] Last Admin: 10/01/17 09:53 Dose: 1,000 mg Aspirin (Ecotrin -) 81 mg PO DAILY [facility] Last Admin: 10/01/17 09:54 Dose: 81 mg Atorvastatin Calcium (Lipitor -) 40 mg PO HS [facility] Last Admin: 10/01/17 22:30 Dose: 40 mg Budesonide/Formoterol Fumarate (Symbicort 160/4.5mcg -) 1 puff IH BID [facility] Last Admin: 10/01/17 22:31 Dose: 1 puff Bupropion HCl (Wellbutrin -) 75 mg PO DAILY [facility] Last Admin: 10/01/17 09:54 Dose: 75 mg Carvedilol (Coreg -) 6.25 mg PO BID [facility] Last Admin: 10/01/17 22:30 Dose: 6.25 mg Cholecalciferol (Vitamin D3 -) 1,000 unit PO DAILY [facility] Last Admin: 10/01/17 13:03 Dose: 1,000 unit Docusate Sodium (Colace -) 100 mg PO BID [facility] Last Admin: 10/01/17 22:30 Dose: 100 mg Ferrous Sulfate (Feosol -) 325 mg PO Q48H [facility] Last Admin: 09/30/17 17:24 Dose: Not Given Milrinone Lactate/Dextrose (Milrinone 20mg/100ml Ivpb -) 20,000 mcg in 100 mls @ 8.906 mls/hr IVPB TITR [facility]; 0.35 MCG/KG/MIN PRN Reason: Protocol Last Admin: 10/01/17 12:01 Dose: 0.35 mcg/kg/min, 8.906 mls/hr Azithromycin 250 mg/ Dextrose 250 mls @ 250 mls/hr IVPB DAILY [facility] Last Admin: 10/01/17 13:01 Dose: 250 mls/hr CEFTRIAXONE 1 G/50 ML PREMIX (Ceftriaxone 1 Gm-D5w Bag) 50 mls @ 100 mls/hr IVPB DAILY [facility] Last Admin: 10/01/17 13:02 Dose: 100 mls/hr Insulin Aspart (Novolog Vial Sliding Scale -) 1 vial SQ ACHS [facility] PRN Reason: Protocol Last Admin: 10/02/17 06:01 Dose: Not Given Multivitamins/Minerals/Vitamin C (Tab-A-Vit -) 1 tab PO DAILY [facility] Last Admin: 10/01/17 09:54 Dose: 1 tab Ranitidine HCl (Zantac -) 75 mg PO DAILY [facility] Last Admin: 10/01/17 09:53 Dose: 75 mg Spironolactone (Aldactone -) 25 mg PO DAILY [facility] Last Admin: 10/01/17 09:54 Dose: 25 mg Torsemide (Demadex -) 20 mg PO BID [facility] Last Admin: 10/01/17 22:30 Dose: 20 mg Warfarin Sodium (Coumadin -) 2 mg PO DAILY@1800 [facility] Last Admin: 09/30/17 19:00 Dose: 2 mg - Objective Vital Signs: Vital Signs Temperature 97.4 F L 10/02/17 01:00 Pulse Rate 75 10/02/17 05:00 Respiratory Rate 20 10/02/17 05:00 Blood Pressure 110/61 10/02/17 05:00 O2 Sat by Pulse Oximetry (%) 97 10/01/17 21:00 Constitutional: Yes: Well Nourished, No Distress, Calm Cardiovascular: Yes: Regular Rate and Rhythm, JVD, S1, S2. No: Gallop, Murmur Respiratory: Yes: Regular, Rales (L base), Wheezes (faint bilat). No: Accessory Muscle Use Extremities: No: Cold Edema: Yes (trace ankles) Neurological: Yes: Alert, Oriented Psychiatric: No: Agitated Labs: CBC, BMP 10/02/17 06:20 10/02/17 06:20 INR, PTT INR 3.42 (0.82-1.09) H 10/01/17 06:07 - ....Imaging EKG: Other (tele: v-paced) Assessment/Plan CXR (images reviewed): trace-small bilat effusions; vasc redistribution pattern. alveolar and interstitial infiltrates bilat low/mid lung calderon. no signif change vs 02/27 prior ECG: NSR, bi-V paced Echo 05/2016: sev lve, global hk, sev dec lvef, mild rve, nl rv fcn, estefania, mild- mod mr, mv ring, tv ring, mild tr, mild pr, mild phtn, ivc mild dil a/p: 76 year old man with PMH of IDDM, COPD (O2 dependant) HTN, HLD, Afib (on coumadin), CAD s/p CABG 2012, end stage CHF with ICD placement (on milrinone pump), PVD, BPH here with sob. URI sx's (cough, rhinorrhea), h/o copd: - flu swab negative - ? if a.e. copd at present - per hospitalist chronic systolic CHF, end stage systolic heart failure s/p ICD, on home milrinone infusion: - pt had cardiomems PAP monitor implant with dr harden ([facility]) and has been managed by him since last admit here. - on destination therapy home milrinone infusion, ? if dr harden increased the dose. - baseline renal fxn has worsened on recent labs (high 2's range) - wt 202 on discharge 03/13 following diuresis with lasix 100 iv bid, metolazone 5mg. currently 185 - BNP 2K (prior range 2K-7K), low GFR confounds - 2/: ER labs appear stretcher and drier than recent baseline, but bun/creat today back down in his recent baseline range. CXR appears unchanged vs 03/13. suspect he is not decompensated despite JVD (chronic in him)--no periph edema which is consistently CHF finding in him, and no increase in wt. - please confirm home torsemide regimen with . - receiving torsemide 20 bid here. low threshold to hold diuretic if renal fxn worsens further. - 2/: wt stable, creat stable, bun up slightly. remains well-compensated with likely no excess volume (chronic JVD here). cont home torsemide. routine weekly labs f/u as outpt as already scheduled (has home labs done by chf specialist dr harden) JOHN on CKD, h/o cardiorenal syndrome: - recent outpt creat ranging 2.6-2.9 range - bun/creat above baseline here afib - rate controlled on coreg - cont coumadin per INR (target 2-3) VT: - intermittent brief runs of NSVT on tele, chronic finding on prior admits - has ICD - on max tolerated coreg dose - replete lytes prn CAD s/p OK with PCI (and ? TV repair at that time): - No anginal symptoms, no signs acs. - Con't home ac, plavix, atorvastatin, coreg PVD - con't AC, statin. HTN: controlled on coreg HLD: con't statin. D/C TELEMETRY. STABLE FOR D/C HOME FROM [facility] P.O.V.
[2017-10-02] MEDS: ASCORBIC ACID 500 MG TABLET (FP) PO SCH (09:22)
[2017-10-02] MEDS: MULTIVITAMINS (DAILY MVI) TABLET (FP) PO SCH (09:22)
[2017-10-02] MEDS: buPROPion HCL 75 MG TABLET PO SCH (09:22)
[2017-10-02] MEDS: ALLOPURINOL 100 MG TABLET (FP) PO SCH (09:22)
[2017-10-02] MEDS: CEFTRIAXONE 1 G/50 ML PREMIX 50 ML IVPB SCH (09:22)
[2017-10-02] MEDS: CARVEDILOL 6.25 MG TABLET (FP) PO SCH ×2 (09:22→21:40)
[2017-10-02] MEDS: ASPIRIN COATED 81 MG TABLET.EC PO SCH (09:23)
[2017-10-02] MEDS: BUDESONIDE/FORMETEROL FUMARATE 160/4.5 mcg INHALER IH SCH ×2 (09:23→21:53)
[2017-10-02] MEDS: CHOLECALCIFEROL (VITAMIN D3) 1,000 UNIT TABLET (FP) PO SCH (09:23)
[2017-10-02] MEDS: SPIRONOLACTONE 25 MG TABLET (FP) PO SCH (09:23)
[2017-10-02] MEDS: TORSEMIDE 20 MG TABLET (FP) PO SCH ×2 (09:23→21:40)
[2017-10-02] MEDS: RANITIDINE HCL 150 MG TABLET (FP) PO SCH (09:23)
[2017-10-02] MEDS: DOCUSATE SODIUM 100 MG CAPSULE (FP) PO SCH ×2 (09:23→21:40)
[2017-10-02] MEDS: AZITHROMYCIN IVPB 250 MG in DEXTROSE 5%-WATER - 250 ML IVPB SCH (09:24)
[2017-10-02 10:27] LABS: INR 3.56 (0.82-1.09); PROTHROMBIN TIME (PATIENT) 40.2 SEC (9.98-11.88)
--- NOTE | 2017-10-02 10:58 | PN ---
Progress Note, Physician History of Present Illness: pulmonary alert,feeling better,less dyspneic - Current Medication List Current Medications: Active Medications Albuterol Sulfate (Ventolin 0.083% Nebulizer Soln -) 1 amp NEB Q6H PRN PRN Reason: SHORT OF BREATH/WHEEZING Allopurinol (Zyloprim -) 100 mg PO DAILY [facility] Last Admin: 10/02/17 09:22 Dose: 100 mg Ascorbic Acid (Vitamin C -) 1,000 mg PO DAILY [facility] Last Admin: 10/02/17 09:22 Dose: 1,000 mg Aspirin (Ecotrin -) 81 mg PO DAILY [facility] Last Admin: 10/02/17 09:23 Dose: 81 mg Atorvastatin Calcium (Lipitor -) 40 mg PO HS [facility] Last Admin: 10/01/17 22:30 Dose: 40 mg Budesonide/Formoterol Fumarate (Symbicort 160/4.5mcg -) 1 puff IH BID [facility] Last Admin: 10/02/17 09:23 Dose: 1 puff Bupropion HCl (Wellbutrin -) 75 mg PO DAILY [facility] Last Admin: 10/02/17 09:22 Dose: 75 mg Carvedilol (Coreg -) 6.25 mg PO BID [facility] Last Admin: 10/02/17 09:22 Dose: 6.25 mg Cholecalciferol (Vitamin D3 -) 1,000 unit PO DAILY [facility] Last Admin: 10/02/17 09:23 Dose: 1,000 unit Docusate Sodium (Colace -) 100 mg PO BID [facility] Last Admin: 10/02/17 09:23 Dose: 100 mg Ferrous Sulfate (Feosol -) 325 mg PO Q48H [facility] Last Admin: 09/30/17 17:24 Dose: Not Given Milrinone Lactate/Dextrose (Milrinone 20mg/100ml Ivpb -) 20,000 mcg in 100 mls @ 8.906 mls/hr IVPB TITR [facility]; 0.35 MCG/KG/MIN PRN Reason: Protocol Last Admin: 10/01/17 12:01 Dose: 0.35 mcg/kg/min, 8.906 mls/hr Azithromycin 250 mg/ Dextrose 250 mls @ 250 mls/hr IVPB DAILY [facility] Last Admin: 10/02/17 09:24 Dose: 250 mls/hr CEFTRIAXONE 1 G/50 ML PREMIX (Ceftriaxone 1 Gm-D5w Bag) 50 mls @ 100 mls/hr IVPB DAILY [facility] Last Admin: 10/02/17 09:22 Dose: 100 mls/hr Insulin Aspart (Novolog Vial Sliding Scale -) 1 vial SQ ACHS [facility] PRN Reason: Protocol Last Admin: 10/02/17 06:01 Dose: Not Given Multivitamins/Minerals/Vitamin C (Tab-A-Vit -) 1 tab PO DAILY [facility] Last Admin: 10/02/17 09:22 Dose: 1 tab Ranitidine HCl (Zantac -) 75 mg PO DAILY [facility] Last Admin: 10/02/17 09:23 Dose: 75 mg Spironolactone (Aldactone -) 25 mg PO DAILY [facility] Last Admin: 10/02/17 09:23 Dose: 25 mg Torsemide (Demadex -) 20 mg PO BID [facility] Last Admin: 10/02/17 09:23 Dose: 20 mg Warfarin Sodium (Coumadin -) 2 mg PO DAILY@1800 [facility] Last Admin: 09/30/17 19:00 Dose: 2 mg - Objective Vital Signs: Vital Signs Temperature 97.4 F L 10/02/17 09:00 Pulse Rate 76 10/02/17 09:00 Respiratory Rate 24 10/02/17 09:00 Blood Pressure 114/65 10/02/17 09:00 O2 Sat by Pulse Oximetry (%) 97 10/01/17 21:00 Constitutional: Yes: Well Nourished, Calm Eyes: Yes: WNL HENT: Yes: WNL Neck: Yes: WNL Cardiovascular: Yes: Pulse Irregular, S1, S2 Respiratory: Yes: Rales (bibasilar rales,few scattered wheezes) Gastrointestinal: Yes: Normal Bowel Sounds, Soft Extremities: Yes: WNL Edema: No Labs: CBC, BMP 10/02/17 06:20 10/02/17 06:20 INR, PTT INR 3.42 (0.82-1.09) H 10/01/17 06:07 Problem List - Problems (1) AICD (automatic cardioverter/defibrillator) present Code(s): Z95.810 - PRESENCE OF AUTOMATIC (IMPLANTABLE) CARDIAC DEFIBRILLATOR (2) CHF (congestive heart failure) Code(s): I50.9 - HEART FAILURE, UNSPECIFIED Qualifiers: (3) COPD (chronic obstructive pulmonary disease) Code(s): J44.9 - CHRONIC OBSTRUCTIVE PULMONARY DISEASE, UNSPECIFIED (4) Dyspnea on exertion Code(s): R06.09 - OTHER FORMS OF DYSPNEA (5) Pulmonary infiltrates on CXR Code(s): R91.8 - OTHER NONSPECIFIC ABNORMAL FINDING OF LUNG FIELD (6) Shortness of breath Code(s): R06.02 - SHORTNESS OF BREATH (7) Acute and chronic respiratory failure ([id number]) Code(s): J96.20 - ACUTE AND CHR RESP FAILURE, UNSP W HYPOXIA OR HYPERCAPNIA Qualifiers: Respiratory failure complication: hypoxia Qualified Code(s): J96.21 - Acute and chronic respiratory failure with hypoxia (8) Acute bronchitis and bronchiolitis Code(s): J20.9 - ACUTE BRONCHITIS, UNSPECIFIED; J21.9 - ACUTE BRONCHIOLITIS, UNSPECIFIED (9) Acute on chronic renal insufficiency Code(s): N28.9 - DISORDER OF KIDNEY AND URETER, UNSPECIFIED; N18.9 - CHRONIC KIDNEY DISEASE, UNSPECIFIED (10) Atrial fibrillation Code(s): I48.91 - UNSPECIFIED ATRIAL FIBRILLATION Qualifiers: Atrial fibrillation type: chronic Qualified Code(s): I48.2 - Chronic atrial fibrillation (11) CAD (coronary artery disease) Code(s): I25.10 - ATHSCL HEART DISEASE OF [place] CORONARY ARTERY W/O ANG PCTRS (12) Cardiomyopathy Code(s): I42.9 - CARDIOMYOPATHY, UNSPECIFIED (13) Diabetes Code(s): E11.9 - TYPE 2 DIABETES MELLITUS WITHOUT COMPLICATIONS Qualifiers: Diabetes mellitus type: type 2 Diabetes mellitus complication status: with kidney complications Diabetes mellitus complication detail: with chronic kidney disease Chronic kidney disease stage: stage 4 (severe) (14) Presence of permanent cardiac pacemaker Code(s): Z95.0 - PRESENCE OF CARDIAC PACEMAKER Assessment/Plan Assessment/Plan URI Severe LV Systolic Dysfunction s/p ICD Pulmonary HTN COPD Chronic Hypoxic Respiratory Failure Atrial Fibrillation Acute on Chronic Renal Failure HTN - antibiotics - inhaled bronchodilators - O2 to keep SpO2 >90% - CXR findings appear unchanged or slightly improved from last, appears relatively euvolemic - monitor urine output, creatinine - rate control - anticoagulation - milrinone DR MONTGOMERY
--- NOTE | 2017-10-02 11:44 | DS ---
Physical Examination Vital Signs: Vital Signs Temperature 36.3 C L 10/02/17 09:00 Pulse Rate 76 10/02/17 09:00 Respiratory Rate 24 10/02/17 09:00 Blood Pressure 114/65 10/02/17 09:00 O2 Sat by Pulse Oximetry (%) 96 10/02/17 09:00 Labs: CBC, BMP 10/02/17 06:20 10/02/17 06:20 Discharge Summary Reason For Visit: COPD SOB PULMONARY INFILTRATE ON XRAY Current Active Problems AICD (automatic cardioverter/defibrillator) present (Acute) Acute kidney injury (Acute) CHF (congestive heart failure) (Acute) COPD (chronic obstructive pulmonary disease) (Acute) Dyspnea on exertion (Acute) Pulmonary infiltrates on CXR (Acute) Shortness of breath (Acute) Condition: Stable - Instructions Diet, Activity, Other Instructions: resume previous diet and activity Referrals: Khang Lopez MD [Primary Care Provider] - Disposition: VNS/HOME HEALTH CARE - Home Medications Comprehensive Discharge Medication List: Ambulatory Orders Allopurinol [Zyloprim -] 100 mg PO DAILY 09/10/15 Atorvastatin Ca [Lipitor] 40 mg PO HS 09/10/15 Carvedilol 6.25 mg PO BID 09/10/15 Docusate Sodium [Colace -] 100 mg PO BID 09/10/15 Insulin NPL/Insulin Lispro [Humalog Mix 75-25 Vial] 0 unit SQ PRN 09/10/15 Milrinone Lactate/D5w [Milrinone 0.2 mg/ml in D5w] 0 mg IV DAILY 09/10/15 Ranitidine [Zantac -] 75 mg PO DAILY 09/10/15 Albuterol 0.083% Nebulizer [place] [Ventolin 0.083% Nebulizer Soln -] 1 amp NEB Q6H PRN #120 amp 09/14/15 Ferrous Sulfate [Feosol] 325 mg PO Q48H ud 04/23/16 Warfarin Na [Coumadin -] 2 mg PO DAILY@1800 09/06/16 Ascorbic Acid [Vitamin C -] 1,000 mg PO DAILY 11/24/16 Cholecalciferol (Vitamin D3) [Vitamin D -] 1,000 unit PO DAILY 11/24/16 Multivitamin [Poly-Vitamin] 1 each PO DAILY 11/24/16 Budesonide/Formeterol Fumarate [SYMBICORT 160/4.5mcg -] 1 inh PO BID 02/17/17 Torsemide [Demadex -] 20 mg PO BID 02/17/17 Aspirin 81 mg PO DAILY 09/30/17 Cholecalciferol (Vitamin D3) [Vitamin D -] 1,000 unit PO DAILY 09/30/17 Levothyroxine [Synthroid -] 25 mcg PO DAILY 09/30/17 Metolazone 2.5 mg PO DAILY 09/30/17 Spironolactone 25 mg PO DAILY 09/30/17 Warfarin Na [Coumadin -] 2.5 mg PO ASDIR 09/30/17 Bupropion HCl [Wellbutrin -] 75 mg PO DAILY #0 tablet 10/02/17
[2017-10-02] MEDS: MILRINONE 20MG/100ML IVPB - 20,000 MCG/100 ML ML IVPB SCH ×2 (12:26→22:06)
[2017-10-02] MEDS: FERROUS SO4 325 MG TABLET (FP) PO SCH (15:19)
--- NOTE | 2017-10-02 16:35 | PN ---
Progress Note (short form) - Note Progress Note: Renal follow up for JOHN on CKD Pt seen and examined at the bedside no acute complaints sob is improved Vital Signs Temperature 97.3 F L 10/02/17 14:36 Pulse Rate 75 10/02/17 14:36 Respiratory Rate 22 10/02/17 14:36 Blood Pressure 95/60 10/02/17 14:36 O2 Sat by Pulse Oximetry (%) 96 10/02/17 09:00 Intake & Output 09/29/17 09/30/17 10/01/17 10/02/17 23:59 23:59 23:59 23:59 Intake Total 250 940 758 Output Total 750 Balance 250 940 8 Weight 84.141 kg 84.141 kg 83.915 kg NAD Dec BS lung bases Trace edema in LE CBC, BMP 10/02/17 06:20 10/02/17 06:20 Current Medications Albuterol Sulfate (Ventolin 0.083% Nebulizer Soln -) 1 amp NEB Q6H PRN PRN Reason: SHORT OF BREATH/WHEEZING Allopurinol (Zyloprim -) 100 mg PO DAILY [facility] Last Admin: 10/02/17 09:22 Dose: 100 mg Ascorbic Acid (Vitamin C -) 1,000 mg PO DAILY [facility] Last Admin: 10/02/17 09:22 Dose: 1,000 mg Aspirin (Ecotrin -) 81 mg PO DAILY [facility] Last Admin: 10/02/17 09:23 Dose: 81 mg Atorvastatin Calcium (Lipitor -) 40 mg PO HS [facility] Last Admin: 10/01/17 22:30 Dose: 40 mg Budesonide/Formoterol Fumarate (Symbicort 160/4.5mcg -) 1 puff IH BID [facility] Last Admin: 10/02/17 09:23 Dose: 1 puff Bupropion HCl (Wellbutrin -) 75 mg PO DAILY [facility] Last Admin: 10/02/17 09:22 Dose: 75 mg Carvedilol (Coreg -) 6.25 mg PO BID [facility] Last Admin: 10/02/17 09:22 Dose: 6.25 mg Cholecalciferol (Vitamin D3 -) 1,000 unit PO DAILY [facility] Last Admin: 10/02/17 09:23 Dose: 1,000 unit Docusate Sodium (Colace -) 100 mg PO BID [facility] Last Admin: 10/02/17 09:23 Dose: 100 mg Ferrous Sulfate (Feosol -) 325 mg PO Q48H [facility] Last Admin: 10/02/17 15:19 Dose: 325 mg Milrinone Lactate/Dextrose (Milrinone 20mg/100ml Ivpb -) 20,000 mcg in 100 mls @ 8.906 mls/hr IVPB TITR [facility]; 0.35 MCG/KG/MIN PRN Reason: Protocol Last Admin: 10/02/17 12:26 Dose: 0.35 mcg/kg/min, 8.906 mls/hr Azithromycin 250 mg/ Dextrose 250 mls @ 250 mls/hr IVPB DAILY [facility] Last Admin: 10/02/17 09:24 Dose: 250 mls/hr CEFTRIAXONE 1 G/50 ML PREMIX (Ceftriaxone 1 Gm-D5w Bag) 50 mls @ 100 mls/hr IVPB DAILY [facility] Last Admin: 10/02/17 09:22 Dose: 100 mls/hr Insulin Aspart (Novolog Vial Sliding Scale -) 1 vial SQ ACHS [facility] PRN Reason: Protocol Last Admin: 10/02/17 12:26 Dose: 10 units Multivitamins/Minerals/Vitamin C (Tab-A-Vit -) 1 tab PO DAILY [facility] Last Admin: 10/02/17 09:22 Dose: 1 tab Ranitidine HCl (Zantac -) 75 mg PO DAILY [facility] Last Admin: 10/02/17 09:23 Dose: 75 mg Spironolactone (Aldactone -) 25 mg PO DAILY [facility] Last Admin: 10/02/17 09:23 Dose: 25 mg Torsemide (Demadex -) 20 mg PO BID [facility] Last Admin: 10/02/17 09:23 Dose: 20 mg Warfarin Sodium (Coumadin -) 2 mg PO DAILY@1800 [facility] Last Admin: 09/30/17 19:00 Dose: 2 mg 77 year old gentleman with PMhx of End stage HF on Milrinone gtt, AICD, CKD ( baseline CR 1.7-2), CAD, AVR, COPD, Hypertension who presented to the ED with SOB and found to have infiltrative and congestive changes on CXR with Cr of 2.8. #SOB/Cough secondary to PNA +/- acute HF on Abx and diuretics pt appears evolemic on examination CXR showed congestion #JOHN on CKD ? 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
--- NOTE | 2017-10-02 17:04 | PN ---
Progress Note, Physician Chief Complaint: Mr Perez says he is at fine. He says his shortness of breath is at baseline. No cp or n/v. - Current Medication List Current Medications: Active Medications Albuterol Sulfate (Ventolin 0.083% Nebulizer Soln -) 1 amp NEB Q6H PRN PRN Reason: SHORT OF BREATH/WHEEZING Allopurinol (Zyloprim -) 100 mg PO DAILY [facility] Last Admin: 10/02/17 09:22 Dose: 100 mg Ascorbic Acid (Vitamin C -) 1,000 mg PO DAILY [facility] Last Admin: 10/02/17 09:22 Dose: 1,000 mg Aspirin (Ecotrin -) 81 mg PO DAILY [facility] Last Admin: 10/02/17 09:23 Dose: 81 mg Atorvastatin Calcium (Lipitor -) 40 mg PO HS [facility] Last Admin: 10/01/17 22:30 Dose: 40 mg Budesonide/Formoterol Fumarate (Symbicort 160/4.5mcg -) 1 puff IH BID [facility] Last Admin: 10/02/17 09:23 Dose: 1 puff Bupropion HCl (Wellbutrin -) 75 mg PO DAILY [facility] Last Admin: 10/02/17 09:22 Dose: 75 mg Carvedilol (Coreg -) 6.25 mg PO BID [facility] Last Admin: 10/02/17 09:22 Dose: 6.25 mg Cholecalciferol (Vitamin D3 -) 1,000 unit PO DAILY [facility] Last Admin: 10/02/17 09:23 Dose: 1,000 unit Docusate Sodium (Colace -) 100 mg PO BID [facility] Last Admin: 10/02/17 09:23 Dose: 100 mg Ferrous Sulfate (Feosol -) 325 mg PO Q48H [facility] Last Admin: 10/02/17 15:19 Dose: 325 mg Milrinone Lactate/Dextrose (Milrinone 20mg/100ml Ivpb -) 20,000 mcg in 100 mls @ 8.906 mls/hr IVPB TITR [facility]; 0.35 MCG/KG/MIN PRN Reason: Protocol Last Admin: 10/02/17 12:26 Dose: 0.35 mcg/kg/min, 8.906 mls/hr Azithromycin 250 mg/ Dextrose 250 mls @ 250 mls/hr IVPB DAILY [facility] Last Admin: 02/05/18 09:24 Dose: 250 mls/hr CEFTRIAXONE 1 G/50 ML PREMIX (Ceftriaxone 1 Gm-D5w Bag) 50 mls @ 100 mls/hr IVPB DAILY [facility] Last Admin: 10/02/17 09:22 Dose: 100 mls/hr Insulin Aspart (Novolog Vial Sliding Scale -) 1 vial SQ ACHS [facility] PRN Reason: Protocol Last Admin: 10/02/17 12:26 Dose: 10 units Multivitamins/Minerals/Vitamin C (Tab-A-Vit -) 1 tab PO DAILY [facility] Last Admin: 10/02/17 09:22 Dose: 1 tab Ranitidine HCl (Zantac -) 75 mg PO DAILY [facility] Last Admin: 10/02/17 09:23 Dose: 75 mg Spironolactone (Aldactone -) 25 mg PO DAILY [facility] Last Admin: 10/02/17 09:23 Dose: 25 mg Torsemide (Demadex -) 20 mg PO BID [facility] Last Admin: 10/02/17 09:23 Dose: 20 mg Warfarin Sodium (Coumadin -) 2 mg PO DAILY@1800 [facility] Last Admin: 09/30/17 19:00 Dose: 2 mg - Objective Vital Signs: Vital Signs Temperature 36.3 C L 10/02/17 14:36 Pulse Rate 75 10/02/17 14:36 Respiratory Rate 22 10/02/17 14:36 Blood Pressure 95/60 10/02/17 14:36 O2 Sat by Pulse Oximetry (%) 96 10/02/17 09:00 Constitutional: Yes: Well Nourished, No Distress, Calm Cardiovascular: Yes: Regular Rate and Rhythm. No: Gallop, Murmur, Rub Respiratory: Yes: Regular, On Nasal O2, Rhonchi. No: CTA Bilaterally, Rales, Wheezes Gastrointestinal: Yes: Normal Bowel Sounds, Soft. No: Distention, Tenderness Extremities: Yes: WNL Edema: Yes Edema: LLE: 1+, RLE: 1+ Labs: CBC, BMP 10/02/17 06:20 10/02/17 06:20 INR, PTT INR 3.56 (0.82-1.09) H 10/02/17 06:20 Problem List - Problems (1) Urinary tract infection Assessment/Plan: -urinalysis positive for UTI -urine culture ordered today -continue rocephin -spoke with , says was on oral antibiotics and did not improve -continue IV antibiotics secondary to failed outpatient therapy Code(s): N39.0 - URINARY TRACT INFECTION, SITE NOT SPECIFIED (2) CHF (congestive heart failure) Assessment/Plan: -end stage on milrinone -continue current management -at baseline Code(s): I50.9 - HEART FAILURE, UNSPECIFIED Qualifiers: Congestive heart failure type: diastolic Congestive heart failure chronicity: chronic Qualified Code(s): I50.32 - Chronic diastolic (congestive ) heart failure (3) COPD (chronic obstructive pulmonary disease) Assessment/Plan: -appreciate pulmonary assistance -continue current management Code(s): J44.9 - CHRONIC OBSTRUCTIVE PULMONARY DISEASE, UNSPECIFIED (4) CAD (coronary artery disease) Assessment/Plan: -continue home regimen Code(s): I25.10 - ATHSCL HEART DISEASE OF [place] CORONARY ARTERY W/O ANG PCTRS (5) CKD (chronic kidney disease) Assessment/Plan: -at baseline Code(s): N18.9 - CHRONIC KIDNEY DISEASE, UNSPECIFIED Qualifiers: (6) Diabetes Assessment/Plan: -diabetic diet -SSI Code(s): E11.9 - TYPE 2 DIABETES MELLITUS WITHOUT COMPLICATIONS Qualifiers: Diabetes mellitus type: type 2 Diabetes mellitus complication status: with kidney complications Diabetes mellitus complication detail: with chronic kidney disease Chronic kidney disease stage: stage 4 (severe)
[2017-10-02] MEDS: WARFARIN NA 5 MG TABLET (UD) PO SCH (18:22)
[2017-10-02] MEDS ORDERED: INSULIN (NOVOLOG) ASPART 100 UNITS/ML 10ML VIAL ONE (21:09)
[2017-10-02] MEDS ORDERED: MILRINONE 20MG/100ML IVPB - 20,000 MCG/100 ML ML IVPB SCH (21:25)
[2017-10-02] MEDS: ATORVASTATIN CA 40 MG TABLET (FP) PO SCH (21:40)
[2017-10-02] MEDS ORDERED: PT OWN MED DRAWER 7, Y5N ONE (21:50)
[2017-10-03] MEDS: MILRINONE 20MG/100ML IVPB - 20,000 MCG/100 ML ML IVPB SCH ×3 (03:30→20:29)
[2017-10-03 06:59] LABS: INR 3.63 (0.82-1.09)
[2017-10-03] MEDS: INSULIN SLIDING SCALE (NOVOLOG) 1 VIAL SQ SCH ×4 (07:05→22:39)
[2017-10-03 07:10] LABS: ANION GAP 11 (8-16); BLOOD UREA NITROGEN 86 mg/dL (7-18); CALCIUM 8.2 mg/dL (8.5-10.1); CHLORIDE 97 mmol/L (98-107); CO2 27 mmol/L (21-32); CREATININE 2.4 mg/dL (0.7-1.3); GLUCOSE,RANDOM 167 mg/dL (74-106); MAGNESIUM 2.9 mg/dL (1.8-2.4); PHOSPHOROUS 3.8 mg/dL (2.5-4.9); POTASSIUM 4.3 mmol/L (3.5-5.1); SODIUM 135 mmol/L (136-145)
[2017-10-03 07:43] LABS: BASO % 0.5 % (0-2.0); EOS % 1.1 % (0-4.5); HEMATOCRIT 37.1 % (35.4-49); HEMOGLOBIN 11.8 GM/dL (11.7-16.9); LYMPH % 22.6 % (8-40); MCH 26.2 pg (25.7-33.7); MCHC 31.7 g/dl (32.0-35.9); MEAN CELL VOLUME 82.6 fl (80-96); MEAN PLT VOLUME 8.3 fl (7.5-11.1); MONO % 16.9 % (3.8-10.2); NEUT % 58.9 % (42.8-82.8); PLATELET COUNT 201 K/MM3 (134-434); RBC 4.49 M/mm3 (4.00-5.60); RDW 20.5 % (11.9-15.9)
[2017-10-03] MEDS ORDERED: PT OWN MED DRAWER 7, Y5N ONE (09:42)
[2017-10-03] MEDS: SPIRONOLACTONE 25 MG TABLET (FP) PO SCH (10:39)
[2017-10-03] MEDS: DOCUSATE SODIUM 100 MG CAPSULE (FP) PO SCH ×2 (10:41→22:37)
[2017-10-03] MEDS: CEFTRIAXONE 1 G/50 ML PREMIX 50 ML IVPB SCH (10:41)
[2017-10-03] MEDS: CARVEDILOL 6.25 MG TABLET (FP) PO SCH ×2 (10:42→22:37)
[2017-10-03] MEDS: TORSEMIDE 20 MG TABLET (FP) PO SCH ×2 (10:42→22:37)
[2017-10-03] MEDS: MULTIVITAMINS (DAILY MVI) TABLET (FP) PO SCH (10:43)
[2017-10-03] MEDS: BUDESONIDE/FORMETEROL FUMARATE 160/4.5 mcg INHALER IH SCH ×2 (10:43→22:36)
[2017-10-03] MEDS: ASCORBIC ACID 500 MG TABLET (FP) PO SCH (10:43)
[2017-10-03] MEDS: ASPIRIN COATED 81 MG TABLET.EC PO SCH (10:43)
[2017-10-03] MEDS: buPROPion HCL 75 MG TABLET PO SCH (10:44)
[2017-10-03] MEDS: RANITIDINE HCL 150 MG TABLET (FP) PO SCH (10:44)
[2017-10-03] MEDS: CHOLECALCIFEROL (VITAMIN D3) 1,000 UNIT TABLET (FP) PO SCH (10:44)
[2017-10-03] MEDS: ALLOPURINOL 100 MG TABLET (FP) PO SCH (10:45)
[2017-10-03] MEDS: AZITHROMYCIN IVPB 250 MG in DEXTROSE 5%-WATER - 250 ML IVPB SCH (11:19)
--- NOTE | 2017-10-03 11:34 | PN ---
Progress Note, Physician History of Present Illness: pulmonary alert,tired,-c/o sob,-cp - Current Medication List Current Medications: Active Medications Albuterol Sulfate (Ventolin 0.083% Nebulizer Soln -) 1 amp NEB Q6H PRN PRN Reason: SHORT OF BREATH/WHEEZING Allopurinol (Zyloprim -) 100 mg PO DAILY [facility] Last Admin: 10/03/17 10:45 Dose: 100 mg Ascorbic Acid (Vitamin C -) 1,000 mg PO DAILY [facility] Last Admin: 10/03/17 10:43 Dose: 1,000 mg Aspirin (Ecotrin -) 81 mg PO DAILY [facility] Last Admin: 10/03/17 10:43 Dose: 81 mg Atorvastatin Calcium (Lipitor -) 40 mg PO HS [facility] Last Admin: 10/02/17 21:40 Dose: 40 mg Budesonide/Formoterol Fumarate (Symbicort 160/4.5mcg -) 1 puff IH BID [facility] Last Admin: 10/03/17 10:43 Dose: 1 puff Bupropion HCl (Wellbutrin -) 75 mg PO DAILY [facility] Last Admin: 10/03/17 10:44 Dose: 75 mg Carvedilol (Coreg -) 6.25 mg PO BID [facility] Last Admin: 10/03/17 10:42 Dose: 6.25 mg Cholecalciferol (Vitamin D3 -) 1,000 unit PO DAILY [facility] Last Admin: 10/03/17 10:44 Dose: 1,000 unit Docusate Sodium (Colace -) 100 mg PO BID [facility] Last Admin: 10/03/17 10:41 Dose: 100 mg Ferrous Sulfate (Feosol -) 325 mg PO Q48H [facility] Last Admin: 10/02/17 15:19 Dose: 325 mg Azithromycin 250 mg/ Dextrose 250 mls @ 250 mls/hr IVPB DAILY [facility] Last Admin: 10/03/17 11:19 Dose: 250 mls/hr CEFTRIAXONE 1 G/50 ML PREMIX (Ceftriaxone 1 Gm-D5w Bag) 50 mls @ 100 mls/hr IVPB DAILY [facility] Last Admin: 10/03/17 10:41 Dose: 100 mls/hr Milrinone Lactate/Dextrose (Milrinone 20mg/100ml Ivpb -) 20,000 mcg in 100 mls @ 12.723 mls/hr IVPB TITR [facility]; 0.5 MCG/KG/MIN PRN Reason: Protocol Last Admin: 10/03/17 03:30 Dose: 0.5 mcg/kg/min, 12.723 mls/hr Insulin Aspart (Novolog Vial Sliding Scale -) 1 vial SQ ACHS [facility] PRN Reason: Protocol Last Admin: 10/03/17 07:05 Dose: 4 units Multivitamins/Minerals/Vitamin C (Tab-A-Vit -) 1 tab PO DAILY [facility] Last Admin: 10/03/17 10:43 Dose: 1 tab Ranitidine HCl (Zantac -) 75 mg PO DAILY [facility] Last Admin: 10/03/17 10:44 Dose: 75 mg Spironolactone (Aldactone -) 25 mg PO DAILY [facility] Last Admin: 10/03/17 10:39 Dose: 25 mg Torsemide (Demadex -) 20 mg PO BID [facility] Last Admin: 10/03/17 10:42 Dose: 20 mg - Objective Vital Signs: Vital Signs Temperature 97.6 F 10/03/17 06:00 Pulse Rate 76 10/03/17 06:00 Respiratory Rate 20 10/03/17 06:00 Blood Pressure 115/53 10/03/17 06:00 O2 Sat by Pulse Oximetry (%) 94 L 10/02/17 21:00 Constitutional: Yes: Well Nourished, Calm Eyes: Yes: WNL HENT: Yes: WNL Neck: Yes: WNL Cardiovascular: Yes: Pulse Irregular, S1, S2 Respiratory: Yes: Rales (few bibasilar rales) Gastrointestinal: Yes: Normal Bowel Sounds, Soft Extremities: Yes: WNL Edema: No Labs: CBC, BMP 10/03/17 06:05 10/03/17 06:05 INR, PTT INR 3.63 (0.82-1.09) H 10/03/17 06:05 Problem List - Problems (1) AICD (automatic cardioverter/defibrillator) present Code(s): Z95.810 - PRESENCE OF AUTOMATIC (IMPLANTABLE) CARDIAC DEFIBRILLATOR (2) CHF (congestive heart failure) Code(s): I50.9 - HEART FAILURE, UNSPECIFIED Qualifiers: Congestive heart failure type: diastolic Congestive heart failure chronicity: chronic Qualified Code(s): I50.32 - Chronic diastolic (congestive ) heart failure (3) COPD (chronic obstructive pulmonary disease) Code(s): J44.9 - CHRONIC OBSTRUCTIVE PULMONARY DISEASE, UNSPECIFIED (4) Dyspnea on exertion Code(s): R06.09 - OTHER FORMS OF DYSPNEA (5) Pulmonary infiltrates on CXR Code(s): R91.8 - OTHER NONSPECIFIC ABNORMAL FINDING OF LUNG FIELD (6) Shortness of breath Code(s): R06.02 - SHORTNESS OF BREATH (7) Acute and chronic respiratory failure ([id number]) Code(s): J96.20 - ACUTE AND CHR RESP FAILURE, UNSP W HYPOXIA OR HYPERCAPNIA Qualifiers: Respiratory failure complication: hypoxia Qualified Code(s): J96.21 - Acute and chronic respiratory failure with hypoxia (8) Acute bronchitis and bronchiolitis Code(s): J20.9 - ACUTE BRONCHITIS, UNSPECIFIED; J21.9 - ACUTE BRONCHIOLITIS, UNSPECIFIED (9) Acute on chronic renal insufficiency Code(s): N28.9 - DISORDER OF KIDNEY AND URETER, UNSPECIFIED; N18.9 - CHRONIC KIDNEY DISEASE, UNSPECIFIED (10) Atrial fibrillation Code(s): I48.91 - UNSPECIFIED ATRIAL FIBRILLATION Qualifiers: Atrial fibrillation type: chronic Qualified Code(s): I48.2 - Chronic atrial fibrillation (11) CAD (coronary artery disease) Code(s): I25.10 - ATHSCL HEART DISEASE OF [place] CORONARY ARTERY W/O ANG PCTRS (12) Cardiomyopathy Code(s): I42.9 - CARDIOMYOPATHY, UNSPECIFIED (13) Diabetes Code(s): E11.9 - TYPE 2 DIABETES MELLITUS WITHOUT COMPLICATIONS Qualifiers: Diabetes mellitus type: type 2 Diabetes mellitus complication status: with kidney complications Diabetes mellitus complication detail: with chronic kidney disease Chronic kidney disease stage: stage 4 (severe) (14) Presence of permanent cardiac pacemaker Code(s): Z95.0 - PRESENCE OF CARDIAC PACEMAKER Assessment/Plan Assessment/Plan URI Severe LV Systolic Dysfunction s/p ICD Pulmonary HTN COPD Chronic Hypoxic Respiratory Failure Atrial Fibrillation Acute on Chronic Renal Failure HTN - antibiotics - inhaled bronchodilators - O2 to keep SpO2 >90% - CXR findings appear unchanged or slightly improved from last, appears relatively euvolemic - monitor urine output, creatinine - rate control - anticoagulation - milrinone - abg DR MONTGOMERY
--- NOTE | 2017-10-03 11:44 | PN ---
Progress Note, Physician Chief Complaint: Mr Perez is very lethargic today. Unable to obtain. - Current Medication List Current Medications: Active Medications Albuterol Sulfate (Ventolin 0.083% Nebulizer Soln -) 1 amp NEB Q6H PRN PRN Reason: SHORT OF BREATH/WHEEZING Allopurinol (Zyloprim -) 100 mg PO DAILY [facility] Last Admin: 10/03/17 10:45 Dose: 100 mg Ascorbic Acid (Vitamin C -) 1,000 mg PO DAILY [facility] Last Admin: 10/03/17 10:43 Dose: 1,000 mg Aspirin (Ecotrin -) 81 mg PO DAILY [facility] Last Admin: 10/03/17 10:43 Dose: 81 mg Atorvastatin Calcium (Lipitor -) 40 mg PO HS [facility] Last Admin: 10/02/17 21:40 Dose: 40 mg Budesonide/Formoterol Fumarate (Symbicort 160/4.5mcg -) 1 puff IH BID [facility] Last Admin: 10/03/17 10:43 Dose: 1 puff Bupropion HCl (Wellbutrin -) 75 mg PO DAILY [facility] Last Admin: 10/03/17 10:44 Dose: 75 mg Carvedilol (Coreg -) 6.25 mg PO BID [facility] Last Admin: 10/03/17 10:42 Dose: 6.25 mg Cholecalciferol (Vitamin D3 -) 1,000 unit PO DAILY [facility] Last Admin: 10/03/17 10:44 Dose: 1,000 unit Docusate Sodium (Colace -) 100 mg PO BID [facility] Last Admin: 10/03/17 10:41 Dose: 100 mg Ferrous Sulfate (Feosol -) 325 mg PO Q48H [facility] Last Admin: 10/02/17 15:19 Dose: 325 mg Azithromycin 250 mg/ Dextrose 250 mls @ 250 mls/hr IVPB DAILY [facility] Last Admin: 10/03/17 11:19 Dose: 250 mls/hr CEFTRIAXONE 1 G/50 ML PREMIX (Ceftriaxone 1 Gm-D5w Bag) 50 mls @ 100 mls/hr IVPB DAILY [facility] Last Admin: 10/03/17 10:41 Dose: 100 mls/hr Milrinone Lactate/Dextrose (Milrinone 20mg/100ml Ivpb -) 20,000 mcg in 100 mls @ 12.723 mls/hr IVPB TITR [facility]; 0.5 MCG/KG/MIN PRN Reason: Protocol Last Admin: 10/03/17 03:30 Dose: 0.5 mcg/kg/min, 12.723 mls/hr Insulin Aspart (Novolog Vial Sliding Scale -) 1 vial SQ ACHS [facility] PRN Reason: Protocol Last Admin: 10/03/17 07:05 Dose: 4 units Multivitamins/Minerals/Vitamin C (Tab-A-Vit -) 1 tab PO DAILY [facility] Last Admin: 10/03/17 10:43 Dose: 1 tab Ranitidine HCl (Zantac -) 75 mg PO DAILY [facility] Last Admin: 10/03/17 10:44 Dose: 75 mg Spironolactone (Aldactone -) 25 mg PO DAILY [facility] Last Admin: 10/03/17 10:39 Dose: 25 mg Torsemide (Demadex -) 20 mg PO BID [facility] Last Admin: 10/03/17 10:42 Dose: 20 mg - Objective Vital Signs: Vital Signs Temperature 36.4 C 10/03/17 06:00 Pulse Rate 76 10/03/17 06:00 Respiratory Rate 20 10/03/17 06:00 Blood Pressure 115/53 10/03/17 06:00 O2 Sat by Pulse Oximetry (%) 94 L 10/02/17 21:00 Constitutional: Yes: No Distress, Other (lethargic but arousable) Cardiovascular: Yes: Regular Rate and Rhythm. No: Gallop, Murmur, Rub Respiratory: Yes: Regular, On Nasal O2, Rhonchi. No: CTA Bilaterally, Rales, Wheezes Gastrointestinal: Yes: Normal Bowel Sounds, Soft. No: Distention, Tenderness Extremities: Yes: WNL Edema: Yes Edema: LLE: 1+, RLE: 1+ Labs: CBC, BMP 10/03/17 06:05 10/03/17 06:05 INR, PTT INR 3.63 (0.82-1.09) H 10/03/17 06:05 Problem List - Problems (1) Urinary tract infection Code(s): N39.0 - URINARY TRACT INFECTION, SITE NOT SPECIFIED (2) CHF (congestive heart failure) Code(s): I50.9 - HEART FAILURE, UNSPECIFIED Qualifiers: Congestive heart failure type: diastolic Congestive heart failure chronicity: chronic Qualified Code(s): I50.32 - Chronic diastolic (congestive ) heart failure (3) COPD (chronic obstructive pulmonary disease) Code(s): J44.9 - CHRONIC OBSTRUCTIVE PULMONARY DISEASE, UNSPECIFIED (4) CAD (coronary artery disease) Code(s): I25.10 - ATHSCL HEART DISEASE OF [place] CORONARY ARTERY W/O ANG PCTRS (5) CKD (chronic kidney disease) Code(s): N18.9 - CHRONIC KIDNEY DISEASE, UNSPECIFIED Qualifiers: (6) Diabetes Code(s): E11.9 - TYPE 2 DIABETES MELLITUS WITHOUT COMPLICATIONS Qualifiers: Diabetes mellitus type: type 2 Diabetes mellitus complication status: with kidney complications Diabetes mellitus complication detail: with chronic kidney disease Chronic kidney disease stage: stage 4 (severe) Assessment/Plan (1) Urinary tract infection Assessment/Plan: -continue rocephin currently -awaiting urine culture results Code(s): N39.0 - URINARY TRACT INFECTION, SITE NOT SPECIFIED (2) CHF (congestive heart failure) Assessment/Plan: -end stage on milrinone -continue current management -at baseline Code(s): I50.9 - HEART FAILURE, UNSPECIFIED Qualifiers: Congestive heart failure type: diastolic Congestive heart failure chronicity: chronic Qualified Code(s): I50.32 - Chronic diastolic (congestive ) heart failure (3) COPD (chronic obstructive pulmonary disease) Assessment/Plan: -appreciate pulmonary assistance -continue current management Code(s): J44.9 - CHRONIC OBSTRUCTIVE PULMONARY DISEASE, UNSPECIFIED (4) CAD (coronary artery disease) Assessment/Plan: -continue home regimen Code(s): I25.10 - ATHSCL HEART DISEASE OF [place] CORONARY ARTERY W/O ANG PCTRS (5) CKD (chronic kidney disease) Assessment/Plan: -at baseline Code(s): N18.9 - CHRONIC KIDNEY DISEASE, UNSPECIFIED Qualifiers: (6) Diabetes Assessment/Plan: -diabetic diet -SSI Code(s): E11.9 - TYPE 2 DIABETES MELLITUS WITHOUT COMPLICATIONS Qualifiers: Diabetes mellitus type: type 2 Diabetes mellitus complication status: with kidney complications Diabetes mellitus complication detail: with chronic kidney disease Chronic kidney disease stage: stage 4 (severe) (7) AMS -patient lethargic today -unclear cause -ABG reviewed, hypercapneic but compensated -? hypoxia -does not appear septic -monitor for cause and improvement
--- NOTE | 2017-10-03 12:28 | PN ---
Progress Note (short form) - Note Progress Note: Chief Complaint: cough History of Present Illness: cough has improved. not started on steroids by pulm yesterday. slightly sleep today, confused?. Patient states he feels at his baseline with no sob, worsening leg edema, or abdominal distension. + fatigue worse than baseline. no sob. no leg swelling. no cp, palpitations Current Medications Albuterol Sulfate (Ventolin 0.083% Nebulizer Soln -) 1 amp NEB Q6H PRN PRN Reason: SHORT OF BREATH/WHEEZING Allopurinol (Zyloprim -) 100 mg PO DAILY [facility] Last Admin: 10/03/17 10:45 Dose: 100 mg Ascorbic Acid (Vitamin C -) 1,000 mg PO DAILY [facility] Last Admin: 10/03/17 10:43 Dose: 1,000 mg Aspirin (Ecotrin -) 81 mg PO DAILY [facility] Last Admin: 10/03/17 10:43 Dose: 81 mg Atorvastatin Calcium (Lipitor -) 40 mg PO HS [facility] Last Admin: 10/02/17 21:40 Dose: 40 mg Budesonide/Formoterol Fumarate (Symbicort 160/4.5mcg -) 1 puff IH BID [facility] Last Admin: 10/03/17 10:43 Dose: 1 puff Bupropion HCl (Wellbutrin -) 75 mg PO DAILY [facility] Last Admin: 10/03/17 10:44 Dose: 75 mg Carvedilol (Coreg -) 6.25 mg PO BID [facility] Last Admin: 10/03/17 10:42 Dose: 6.25 mg Cholecalciferol (Vitamin D3 -) 1,000 unit PO DAILY [facility] Last Admin: 10/03/17 10:44 Dose: 1,000 unit Docusate Sodium (Colace -) 100 mg PO BID [facility] Last Admin: 10/03/17 10:41 Dose: 100 mg Ferrous Sulfate (Feosol -) 325 mg PO Q48H [facility] Last Admin: 10/02/17 15:19 Dose: 325 mg Azithromycin 250 mg/ Dextrose 250 mls @ 250 mls/hr IVPB DAILY [facility] Last Admin: 10/03/17 11:19 Dose: 250 mls/hr CEFTRIAXONE 1 G/50 ML PREMIX (Ceftriaxone 1 Gm-D5w Bag) 50 mls @ 100 mls/hr IVPB DAILY [facility] Last Admin: 02/06/18 10:41 Dose: 100 mls/hr Milrinone Lactate/Dextrose (Milrinone 20mg/100ml Ivpb -) 20,000 mcg in 100 mls @ 12.723 mls/hr IVPB TITR [facility]; 0.5 MCG/KG/MIN PRN Reason: Protocol Last Admin: 10/03/17 12:25 Dose: 0.5 mcg/kg/min, 12.723 mls/hr Insulin Aspart (Novolog Vial Sliding Scale -) 1 vial SQ ACHS [facility] PRN Reason: Protocol Last Admin: 10/03/17 07:05 Dose: 4 units Multivitamins/Minerals/Vitamin C (Tab-A-Vit -) 1 tab PO DAILY [facility] Last Admin: 10/03/17 10:43 Dose: 1 tab Ranitidine HCl (Zantac -) 75 mg PO DAILY [facility] Last Admin: 10/03/17 10:44 Dose: 75 mg Spironolactone (Aldactone -) 25 mg PO DAILY [facility] Last Admin: 10/03/17 10:39 Dose: 25 mg Torsemide (Demadex -) 20 mg PO BID [facility] Last Admin: 10/03/17 10:42 Dose: 20 mg - Objective Vital Signs: Vital Signs - 24 hr 10/02/17 10/02/17 10/02/17 14:36 18:00 20:00 Temperature 97.3 F L 97.1 F L 97.3 F L Pulse Rate 75 75 75 Respiratory 22 22 20 Rate Blood Pressure 95/60 105/67 118/70 O2 Sat by Pulse Oximetry (%) 10/02/17 10/03/17 10/03/17 21:00 02:00 06:00 Temperature 98 F 97.6 F Pulse Rate 75 76 Respiratory 20 20 Rate Blood Pressure 109/62 115/53 O2 Sat by Pulse 94 L Oximetry (%) Intake & Output 10/01/17 10/02/17 10/03/17 10/04/17 07:59 07:59 07:59 07:59 Intake Total 500 798 689.4 Output Total 950 Balance 500 798 -260.6 Weight 185 lb 8 oz 185 lb 185 lb 12.8 oz Constitutional: Yes: Well Nourished, No Distress, Calm Cardiovascular: Yes: Regular Rate and Rhythm, JVD, S1, S2. No: Gallop, Murmur Respiratory: Yes: Regular, Rales (L base), Wheezes (faint bilat). No: Accessory Muscle Use Extremities: No: Cold Edema: Yes (trace ankles) Neurological: Yes: Alert, Oriented Psychiatric: No: Agitated Labs: CBC, BMP 10/03/17 06:05 10/03/17 06:05 Laboratory Tests 10/03/17 06:05 INR 3.63 H - ....Imaging EKG: Other (tele: v-paced) Assessment/Plan CXR (images reviewed): trace-small bilat effusions; vasc redistribution pattern. alveolar and interstitial infiltrates bilat low/mid lung calderon. no signif change vs 02/27 prior ECG: NSR, bi-V paced Echo 05/2016: sev lve, global hk, sev dec lvef, mild rve, nl rv fcn, estefania, mild- mod mr, mv ring, tv ring, mild tr, mild pr, mild phtn, ivc mild dil a/p: 76 year old man with PMH of IDDM, COPD (O2 dependant) HTN, HLD, Afib (on coumadin), CAD s/p CABG 2012, end stage CHF with ICD placement (on milrinone pump), PVD, BPH here with sob. URI sx's (cough, rhinorrhea), h/o copd: - flu swab negative - ? if a.e. copd at present - per hospitalist chronic systolic CHF, end stage systolic heart failure s/p ICD, on home milrinone infusion: - pt had cardiomems PAP monitor implant with dr harden ([facility] and has been managed by him since last admit here. - on destination therapy home milrinone infusion, ? if dr harden increased the dose. - baseline renal fxn has worsened on recent labs (high 2's range) - wt 202 on discharge 03/13 following diuresis with lasix 100 iv bid, metolazone 5mg. 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 CXR appears unchanged vs 03/13. suspect he is not decompensated despite JVD (chronic in him)--no periph edema which is consistently CHF finding in him, and no increase in wt. - please confirm home torsemide regimen with . - receiving torsemide 20 bid here. low threshold to hold diuretic if renal fxn worsens further. - 10/02: wt stable, creat stable, bun up slightly. remains well-compensated with likely no excess volume (chronic JVD here). - 10/03: cr continues to improve on home torsemide, con't. routine weekly labs f/ u as outpt as already scheduled (has home labs done by chf specialist dr harden) JOHN on CKD, h/o cardiorenal syndrome: - recent outpt creat ranging 2.6-2.9 range - bun/creat above baseline here afib - rate controlled on coreg - cont coumadin per INR (target 2-3) VT: - intermittent brief runs of NSVT on tele, chronic finding on prior admits - has ICD - on max tolerated coreg dose - replete lytes prn CAD s/p [place] with PCI (and ? TV repair at that time): - No anginal symptoms, no signs acs. - Con't home ac, asa, atorvastatin, coreg PVD - con't AC, statin. HTN: controlled on coreg HLD: con't statin. D/C TELEMETRY. STABLE FOR D/C HOME FROM [facility] P.O.V.
[2017-10-03 13:03] LABS: ARTERIAL BLD GAS O2 SATURATION 93.8 % (90-98.9); ARTERIAL BLOOD GAS BASE EXCESS 3.7 meq/l (-2-2); ARTERIAL BLOOD GAS PCO2 46.4 mmHg (35-45); ARTERIAL BLOOD GAS PO2 67.8 mmHg (70-100)
[2017-10-03 13:06] LABS: ALLENS TEST POSITIVE
--- NOTE | 2017-10-03 16:23 | PN ---
Progress Note (short form) - Note Progress Note: Renal follow up for JOHN on CKD Pt seen and examined at the bedside + cough no fever, chills denies any overt sob Vital Signs Temperature 98 F 10/03/17 14:00 Pulse Rate 77 10/03/17 14:00 Respiratory Rate 20 10/03/17 14:00 Blood Pressure 92/67 10/03/17 14:00 O2 Sat by Pulse Oximetry (%) 97 10/03/17 09:00 Intake & Output 09/30/17 10/01/17 10/02/17 10/03/17 23:59 23:59 23:59 23:59 Intake Total 250 940 797.4 Output Total 950 Balance 250 940 -152.6 Weight 84.141 kg 84.141 kg 83.915 kg 84.277 kg NAD Dec BS lung bases Trace edema in LE CBC, BMP 10/03/17 06:05 10/03/17 06:05 Current Medications Albuterol Sulfate (Ventolin 0.083% Nebulizer Soln -) 1 amp NEB Q6H PRN PRN Reason: SHORT OF BREATH/WHEEZING Allopurinol (Zyloprim -) 100 mg PO DAILY [facility] Last Admin: 10/03/17 10:45 Dose: 100 mg Ascorbic Acid (Vitamin C -) 1,000 mg PO DAILY [facility] Last Admin: 10/03/17 10:43 Dose: 1,000 mg Aspirin (Ecotrin -) 81 mg PO DAILY [facility] Last Admin: 10/03/17 10:43 Dose: 81 mg Atorvastatin Calcium (Lipitor -) 40 mg PO HS [facility] Last Admin: 10/02/17 21:40 Dose: 40 mg Budesonide/Formoterol Fumarate (Symbicort 160/4.5mcg -) 1 puff IH BID [facility] Last Admin: 10/03/17 10:43 Dose: 1 puff Bupropion HCl (Wellbutrin -) 75 mg PO DAILY [facility] Last Admin: 10/03/17 10:44 Dose: 75 mg Carvedilol (Coreg -) 6.25 mg PO BID [facility] Last Admin: 10/03/17 10:42 Dose: 6.25 mg Cholecalciferol (Vitamin D3 -) 1,000 unit PO DAILY [facility] Last Admin: 10/03/17 10:44 Dose: 1,000 unit Docusate Sodium (Colace -) 100 mg PO BID [facility] Last Admin: 10/03/17 10:41 Dose: 100 mg Ferrous Sulfate (Feosol -) 325 mg PO Q48H [facility] Last Admin: 10/02/17 15:19 Dose: 325 mg Azithromycin 250 mg/ Dextrose 250 mls @ 250 mls/hr IVPB DAILY [facility] Last Admin: 10/03/17 11:19 Dose: 250 mls/hr CEFTRIAXONE 1 G/50 ML PREMIX (Ceftriaxone 1 Gm-D5w Bag) 50 mls @ 100 mls/hr IVPB DAILY [facility] Last Admin: 10/03/17 10:41 Dose: 100 mls/hr Milrinone Lactate/Dextrose (Milrinone 20mg/100ml Ivpb -) 20,000 mcg in 100 mls @ 12.723 mls/hr IVPB TITR [facility]; 0.5 MCG/KG/MIN PRN Reason: Protocol Last Admin: 10/03/17 12:25 Dose: 0.5 mcg/kg/min, 12.723 mls/hr Insulin Aspart (Novolog Vial Sliding Scale -) 1 vial SQ ACHS [facility] PRN Reason: Protocol Last Admin: 10/03/17 12:39 Dose: 4 units Multivitamins/Minerals/Vitamin C (Tab-A-Vit -) 1 tab PO DAILY [facility] Last Admin: 10/03/17 10:43 Dose: 1 tab Ranitidine HCl (Zantac -) 75 mg PO DAILY [facility] Last Admin: 10/03/17 10:44 Dose: 75 mg Spironolactone (Aldactone -) 25 mg PO DAILY [facility] Last Admin: 10/03/17 10:39 Dose: 25 mg Torsemide (Demadex -) 20 mg PO BID [facility] Last Admin: 10/03/17 10:42 Dose: 20 mg 77 year old gentleman with PMhx of End stage HF on Milrinone gtt, AICD, CKD ( baseline CR 1.7-2), CAD, AVR, COPD, Hypertension who presented to the ED with SOB and found to have infiltrative and congestive changes on CXR with Cr of 2.8. #SOB/Cough secondary to PNA +/- acute HF continue Ceftiaxone and Azithromax as per ID respiratory status stable at this time continue Torsemide 20mg BID for CHF #JOHN on CKD ? ATN from NSAIDs vs renal hypoprofusion US of kidneys showed no obstruction Renal function now improving advised to avoid further NSAIDs at home continue torsemide at home dose Trend BUN/Cr and electrolytes while inpatient ok for discharge home from renal perspective Thank you Jeyson Terry DO
[2017-10-03] MEDS: ATORVASTATIN CA 40 MG TABLET (FP) PO SCH (22:37)
[2017-10-04] MEDS: INSULIN SLIDING SCALE (NOVOLOG) 1 VIAL SQ SCH ×4 (06:06→21:32)
[2017-10-04] MEDS: MILRINONE 20MG/100ML IVPB - 20,000 MCG/100 ML ML IVPB SCH ×2 (06:06→14:54)
[2017-10-04 07:19] LABS: BASO % 0.3 % (0-2.0); EOS % 1.9 % (0-4.5); HEMATOCRIT 35.2 % (35.4-49); HEMOGLOBIN 11.2 GM/dL (11.7-16.9); LYMPH % 20.9 % (8-40); MCH 26.3 pg (25.7-33.7); MCHC 31.8 g/dl (32.0-35.9); MEAN CELL VOLUME 82.8 fl (80-96); MONO % 15.6 % (3.8-10.2); NEUT % 61.3 % (42.8-82.8); PLATELET COUNT 178 K/MM3 (134-434); RBC 4.25 M/mm3 (4.00-5.60); RDW 20.7 % (11.9-15.9); WHITE BLOOD COUNT 6.8 K/mm3 (4.0-10.0)
[2017-10-04 07:36] LABS: INR 3.44 (0.82-1.09); PROTHROMBIN TIME (PATIENT) 38.9 SEC (9.98-11.88)
[2017-10-04 07:51] LABS: ANION GAP 9 (8-16); BLOOD UREA NITROGEN 87 mg/dL (7-18); CALCIUM 8.5 mg/dL (8.5-10.1); CHLORIDE 96 mmol/L (98-107); CO2 31 mmol/L (21-32); CREATININE 2.2 mg/dL (0.7-1.3); GLUCOSE,RANDOM 168 mg/dL (74-106); PHOSPHOROUS 3.3 mg/dL (2.5-4.9); POTASSIUM 4.2 mmol/L (3.5-5.1); SODIUM 136 mmol/L (136-145)
[2017-10-04 07:53] LABS: MAGNESIUM 2.6 mg/dL (1.8-2.4)
[2017-10-04] MEDS: buPROPion HCL 75 MG TABLET PO SCH (09:51)
[2017-10-04] MEDS: CEFTRIAXONE 1 G/50 ML PREMIX 50 ML IVPB SCH (09:51)
[2017-10-04] MEDS: CHOLECALCIFEROL (VITAMIN D3) 1,000 UNIT TABLET (FP) PO SCH (09:51)
[2017-10-04] MEDS: CARVEDILOL 6.25 MG TABLET (FP) PO SCH ×2 (09:51→21:33)
[2017-10-04] MEDS: ALLOPURINOL 100 MG TABLET (FP) PO SCH (09:51)
[2017-10-04] MEDS: SPIRONOLACTONE 25 MG TABLET (FP) PO SCH (09:52)
[2017-10-04] MEDS: TORSEMIDE 20 MG TABLET (FP) PO SCH ×2 (09:52→21:33)
[2017-10-04] MEDS: MULTIVITAMINS (DAILY MVI) TABLET (FP) PO SCH (09:52)
[2017-10-04] MEDS: DOCUSATE SODIUM 100 MG CAPSULE (FP) PO SCH ×2 (09:52→21:33)
[2017-10-04] MEDS: ASCORBIC ACID 500 MG TABLET (FP) PO SCH (09:52)
[2017-10-04] MEDS: AZITHROMYCIN IVPB 250 MG in DEXTROSE 5%-WATER - 250 ML IVPB SCH (09:53)
[2017-10-04] MEDS: ASPIRIN COATED 81 MG TABLET.EC PO SCH (09:53)
[2017-10-04] MEDS: RANITIDINE HCL 150 MG TABLET (FP) PO SCH (09:53)
[2017-10-04] MEDS: BUDESONIDE/FORMETEROL FUMARATE 160/4.5 mcg INHALER IH SCH ×2 (09:54→21:33)
--- NOTE | 2017-10-04 11:03 | PN ---
Progress Note, Physician History of Present Illness: pulmonary alert,no complaints,-sob,-cp - Current Medication List Current Medications: Active Medications Albuterol Sulfate (Ventolin 0.083% Nebulizer Soln -) 1 amp NEB Q6H PRN PRN Reason: SHORT OF BREATH/WHEEZING Allopurinol (Zyloprim -) 100 mg PO DAILY [facility] Last Admin: 10/04/17 09:51 Dose: 100 mg Ascorbic Acid (Vitamin C -) 1,000 mg PO DAILY [facility] Last Admin: 10/04/17 09:52 Dose: 1,000 mg Aspirin (Ecotrin -) 81 mg PO DAILY [facility] Last Admin: 10/04/17 09:53 Dose: 81 mg Atorvastatin Calcium (Lipitor -) 40 mg PO HS [facility] Last Admin: 10/03/17 22:37 Dose: 40 mg Budesonide/Formoterol Fumarate (Symbicort 160/4.5mcg -) 1 puff IH BID [facility] Last Admin: 10/04/17 09:54 Dose: 1 puff Bupropion HCl (Wellbutrin -) 75 mg PO DAILY [facility] Last Admin: 10/04/17 09:51 Dose: 75 mg Carvedilol (Coreg -) 6.25 mg PO BID [facility] Last Admin: 10/04/17 09:51 Dose: 6.25 mg Cholecalciferol (Vitamin D3 -) 1,000 unit PO DAILY [facility] Last Admin: 10/04/17 09:51 Dose: 1,000 unit Docusate Sodium (Colace -) 100 mg PO BID [facility] Last Admin: 10/04/17 09:52 Dose: 100 mg Ferrous Sulfate (Feosol -) 325 mg PO Q48H [facility] Last Admin: 10/02/17 15:19 Dose: 325 mg Azithromycin 250 mg/ Dextrose 250 mls @ 250 mls/hr IVPB DAILY [facility] Last Admin: 10/04/17 09:53 Dose: 250 mls/hr CEFTRIAXONE 1 G/50 ML PREMIX (Ceftriaxone 1 Gm-D5w Bag) 50 mls @ 100 mls/hr IVPB DAILY [facility] Last Admin: 10/04/17 09:51 Dose: 100 mls/hr Milrinone Lactate/Dextrose (Milrinone 20mg/100ml Ivpb -) 20,000 mcg in 100 mls @ 12.723 mls/hr IVPB TITR [facility]; 0.5 MCG/KG/MIN PRN Reason: Protocol Last Admin: 10/04/17 06:06 Dose: 0.5 mcg/kg/min, 12.723 mls/hr Insulin Aspart (Novolog Vial Sliding Scale -) 1 vial SQ ACHS [facility] PRN Reason: Protocol Last Admin: 10/04/17 06:06 Dose: 2 units Multivitamins/Minerals/Vitamin C (Tab-A-Vit -) 1 tab PO DAILY [facility] Last Admin: 10/04/17 09:52 Dose: 1 tab Ranitidine HCl (Zantac -) 75 mg PO DAILY [facility] Last Admin: 10/04/17 09:53 Dose: 75 mg Spironolactone (Aldactone -) 25 mg PO DAILY [facility] Last Admin: 10/04/17 09:52 Dose: 25 mg Torsemide (Demadex -) 20 mg PO BID [facility] Last Admin: 10/04/17 09:52 Dose: 20 mg - Objective Vital Signs: Vital Signs Temperature 97.2 F L 10/04/17 05:41 Pulse Rate 75 10/04/17 05:41 Respiratory Rate 20 10/04/17 05:41 Blood Pressure 103/60 10/04/17 05:41 O2 Sat by Pulse Oximetry (%) 93 L 10/03/17 21:00 Constitutional: Yes: Well Nourished, Calm Eyes: Yes: WNL HENT: Yes: WNL Neck: Yes: WNL Cardiovascular: Yes: Pulse Irregular, S1, S2 Respiratory: Yes: Rales (biasilar rales) Gastrointestinal: Yes: Normal Bowel Sounds, Soft Extremities: Yes: WNL Edema: No Labs: CBC, BMP 10/04/17 07:01 10/04/17 07:01 INR, PTT INR 3.44 (0.82-1.09) H 10/04/17 07:01 Laboratory Tests 10/03/17 11:31 ABG pH 7.40 ABG pCO2 at Pt Temp 46.4 H ABG pO2 at Pt Temp 67.8 L ABG HCO3 28.5 H ABG O2 Sat (Measured) 93.8 Problem List - Problems (1) AICD (automatic cardioverter/defibrillator) present Code(s): Z95.810 - PRESENCE OF AUTOMATIC (IMPLANTABLE) CARDIAC DEFIBRILLATOR (2) CHF (congestive heart failure) Code(s): I50.9 - HEART FAILURE, UNSPECIFIED Qualifiers: Congestive heart failure type: diastolic Congestive heart failure chronicity: chronic Qualified Code(s): I50.32 - Chronic diastolic (congestive ) heart failure (3) COPD (chronic obstructive pulmonary disease) Code(s): J44.9 - CHRONIC OBSTRUCTIVE PULMONARY DISEASE, UNSPECIFIED (4) Dyspnea on exertion Code(s): R06.09 - OTHER FORMS OF DYSPNEA (5) Pulmonary infiltrates on CXR Code(s): R91.8 - OTHER NONSPECIFIC ABNORMAL FINDING OF LUNG FIELD (6) Shortness of breath Code(s): R06.02 - SHORTNESS OF BREATH (7) Acute and chronic respiratory failure ([id number]) Code(s): J96.20 - ACUTE AND CHR RESP FAILURE, UNSP W HYPOXIA OR HYPERCAPNIA Qualifiers: Respiratory failure complication: hypoxia Qualified Code(s): J96.21 - Acute and chronic respiratory failure with hypoxia (8) Acute bronchitis and bronchiolitis Code(s): J20.9 - ACUTE BRONCHITIS, UNSPECIFIED; J21.9 - ACUTE BRONCHIOLITIS, UNSPECIFIED (9) Acute on chronic renal insufficiency Code(s): N28.9 - DISORDER OF KIDNEY AND URETER, UNSPECIFIED; N18.9 - CHRONIC KIDNEY DISEASE, UNSPECIFIED (10) Atrial fibrillation Code(s): I48.91 - UNSPECIFIED ATRIAL FIBRILLATION Qualifiers: Atrial fibrillation type: chronic Qualified Code(s): I48.2 - Chronic atrial fibrillation (11) CAD (coronary artery disease) Code(s): I25.10 - ATHSCL HEART DISEASE OF [place] CORONARY ARTERY W/O ANG PCTRS (12) Cardiomyopathy Code(s): I42.9 - CARDIOMYOPATHY, UNSPECIFIED (13) Diabetes Code(s): E11.9 - TYPE 2 DIABETES MELLITUS WITHOUT COMPLICATIONS Qualifiers: Diabetes mellitus type: type 2 Diabetes mellitus complication status: with kidney complications Diabetes mellitus complication detail: with chronic kidney disease Chronic kidney disease stage: stage 4 (severe) (14) Presence of permanent cardiac pacemaker Code(s): Z95.0 - PRESENCE OF CARDIAC PACEMAKER Assessment/Plan Assessment/Plan URI Severe LV Systolic Dysfunction s/p ICD Pulmonary HTN COPD Chronic Hypoxic Respiratory Failure Atrial Fibrillation Acute on Chronic Renal Failure improving HTN - po antibiotics - inhaled bronchodilators - O2 to keep SpO2 >90% - monitor urine output, creatinine - rate control - anticoagulation - milrinone DR MONTGOMERY
--- NOTE | 2017-10-04 12:01 | PN ---
Progress Note (short form) - Note Progress Note: s: feeling at baseline, no sob palps dizzy cp Current Medications Generic Name Dose Route Start Last Admin Trade Name Freq PRN Reason Stop Dose Admin Albuterol Sulfate 1 amp 09/30/17 15:34 Ventolin 0.083% Nebulizer Soln - NEB Q6H PRN SHORT OF BREATH/WHEEZING Allopurinol 100 mg 10/01/17 10:00 10/04/17 09:51 Zyloprim - PO 100 mg DAILY [facility] Administration Ascorbic Acid 1,000 mg 10/01/17 10:00 10/04/17 09:52 Vitamin C - PO 1,000 mg DAILY [facility] Administration Aspirin 81 mg 10/01/17 10:00 10/04/17 09:53 Ecotrin - PO 81 mg DAILY [facility] Administration Atorvastatin Calcium 40 mg 09/30/17 22:00 10/03/17 22:37 Lipitor - PO 40 mg HS [facility] Administration Budesonide/Formoterol Fumarate 1 puff 09/30/17 22:00 10/04/17 09:54 Symbicort 160/4.5mcg - IH 1 puff BID [facility] Administration Bupropion HCl 75 mg 10/01/17 10:00 10/04/17 09:51 Wellbutrin - PO 75 mg DAILY [facility] Administration Carvedilol 6.25 mg 09/30/17 22:00 10/04/17 09:51 Coreg - PO 6.25 mg BID [facility] Administration Cholecalciferol 1,000 unit 10/01/17 12:45 10/04/17 09:51 Vitamin D3 - PO 1,000 unit DAILY [facility] Administration Docusate Sodium 100 mg 09/30/17 22:00 10/04/17 09:52 Colace - PO 100 mg BID [facility] Administration Ferrous Sulfate 325 mg 09/30/17 15:45 10/02/17 15:19 Feosol - PO 325 mg Q48H [facility] Administration Azithromycin 250 mg/ Dextrose 250 mls @ 250 mls/hr 10/01/17 10:00 10/04/17 09 :53 IVPB 250 mls/hr DAILY [facility] Administration CEFTRIAXONE 1 G/50 ML PREMIX 50 mls @ 100 mls/hr 10/01/17 12:45 10/04/17 09: 51 Ceftriaxone 1 Gm-D5w Bag IVPB 100 mls/hr DAILY [facility] Administration Milrinone Lactate/Dextrose 20,000 mcg in 100 mls @ 12.723 mls/hr 10/02/17 22: 15 10/04/17 06:06 Milrinone 20mg/100ml Ivpb - IVPB 0.5 mcg/kg/min TITR [facility] 12.723 mls/hr Protocol Administration 0.5 MCG/KG/MIN Insulin Aspart 1 vial 09/30/17 16:30 10/04/17 06:06 Novolog Vial Sliding Scale - SQ 2 units ACHS [facility] Administration Protocol Multivitamins/Minerals/Vitamin C 1 tab 10/01/17 10:00 10/04/17 09:52 Tab-A-Vit - PO 1 tab DAILY [facility] Administration Ranitidine HCl 75 mg 10/01/17 10:00 10/04/17 09:53 Zantac - PO 75 mg DAILY [facility] Administration Spironolactone 25 mg 10/01/17 10:00 10/04/17 09:52 Aldactone - PO 25 mg DAILY [facility] Administration Torsemide 20 mg 09/30/17 22:00 10/04/17 09:52 Demadex - PO 20 mg BID [facility] Administration Vital Signs Period Temp Pulse Resp BP Sys/Orantes Pulse Ox Last 24 Hr 97.2 F-98.2 F 75-77 20-20 92-106/60-67 93 Constitutional: Yes: Well Nourished, No Distress, Calm Cardiovascular: Yes: Regular Rate and Rhythm, JVD, S1, S2. No: Gallop, Murmur Respiratory: Yes: Regular, Rales (L base), Wheezes (faint bilat). No: Accessory Muscle Use Extremities: No: Cold Edema: Yes (trace ankles) Neurological: Yes: Alert, Oriented Psychiatric: No: Agitated Labs: CBC, BMP 10/04/17 07:01 10/04/17 07:01 - ....Imaging EKG: Other (tele: v-paced) CXR (images reviewed): trace-small bilat effusions; vasc redistribution pattern. alveolar and interstitial infiltrates bilat low/mid lung calderon. no signif change vs 02/27 prior ECG: NSR, bi-V paced Echo 05/2016: sev lve, global hk, sev dec lvef, mild rve, nl rv fcn, estefania, mild- mod mr, mv ring, tv ring, mild tr, mild pr, mild phtn, ivc mild dil a/p: 76 year old man with PMH of IDDM, COPD (O2 dependant) HTN, HLD, Afib (on coumadin), CAD s/p CABG 2012, end stage CHF with ICD placement (on milrinone pump), PVD, BPH here with sob. URI sx's (cough, rhinorrhea), h/o copd: - flu swab negative - ? if a.e. copd at present - per hospitalist chronic systolic CHF, end stage systolic heart failure s/p ICD, on home milrinone infusion: - pt had cardiomems PAP monitor implant with dr harden ([facility]) and has been managed by him since last admit here. - on destination therapy home milrinone infusion, ? if dr harden increased the dose. - baseline renal fxn has worsened on recent labs (high 2's range) - wt 202 on discharge 03/13 following diuresis with lasix 100 iv bid, metolazone 5mg. currently 185 - BNP 2K (prior range 2K-7K), low GFR confounds - 2/: ER labs appear rice drier than recent baseline, but bun/creat today back down in his recent baseline range. CXR appears unchanged vs 03/13. suspect he is not decompensated despite JVD (chronic in him)--no periph edema which is consistently CHF finding in him, and no increase in wt. - please confirm home torsemide regimen with . - receiving torsemide 20 bid here. low threshold to hold diuretic if renal fxn worsens further. - 2: wt stable, creat stable, bun up slightly. remains well-compensated with likely no excess volume (chronic JVD here). - 10/03-7: cr continues to improve on home torsemide, con't. routine weekly labs f /u as outpt as already scheduled (has home labs done by chf specialist dr harden ) JOHN on CKD, h/o cardiorenal syndrome: - recent outpt creat ranging 2.6-2.9 range - bun/creat above baseline here afib - rate controlled on coreg - cont coumadin per INR (target 2-3) VT: - intermittent brief runs of NSVT on tele, chronic finding on prior admits - has ICD - on max tolerated coreg dose - replete lytes prn CAD s/p [place] with PCI (and ? TV repair at that time): - No anginal symptoms, no signs acs. - Con't home ac, asa, atorvastatin, coreg PVD - con't AC, statin. HTN: controlled on coreg HLD: con't statin. D/C TELEMETRY. STABLE FOR D/C HOME FROM [facility] P.O.V.
--- NOTE | 2017-10-04 12:36 | PN ---
Progress Note, Physician Chief Complaint: Mr Perez says he is doing well. Eager to go home. Breathing is at baseline. No cp or n/v. Says he did not sleep well and that was why he was so lethargic yesterday. - Current Medication List Current Medications: Active Medications Albuterol Sulfate (Ventolin 0.083% Nebulizer Soln -) 1 amp NEB Q6H PRN PRN Reason: SHORT OF BREATH/WHEEZING Allopurinol (Zyloprim -) 100 mg PO DAILY [facility] Last Admin: 10/04/17 09:51 Dose: 100 mg Ascorbic Acid (Vitamin C -) 1,000 mg PO DAILY [facility] Last Admin: 10/04/17 09:52 Dose: 1,000 mg Aspirin (Ecotrin -) 81 mg PO DAILY [facility] Last Admin: 10/04/17 09:53 Dose: 81 mg Atorvastatin Calcium (Lipitor -) 40 mg PO HS [facility] Last Admin: 10/03/17 22:37 Dose: 40 mg Budesonide/Formoterol Fumarate (Symbicort 160/4.5mcg -) 1 puff IH BID [facility] Last Admin: 10/04/17 09:54 Dose: 1 puff Bupropion HCl (Wellbutrin -) 75 mg PO DAILY [facility] Last Admin: 10/04/17 09:51 Dose: 75 mg Carvedilol (Coreg -) 6.25 mg PO BID [facility] Last Admin: 10/04/17 09:51 Dose: 6.25 mg Cholecalciferol (Vitamin D3 -) 1,000 unit PO DAILY [facility] Last Admin: 10/04/17 09:51 Dose: 1,000 unit Docusate Sodium (Colace -) 100 mg PO BID [facility] Last Admin: 10/04/17 09:52 Dose: 100 mg Ferrous Sulfate (Feosol -) 325 mg PO Q48H [facility] Last Admin: 10/02/17 15:19 Dose: 325 mg Azithromycin 250 mg/ Dextrose 250 mls @ 250 mls/hr IVPB DAILY [facility] Last Admin: 10/04/17 09:53 Dose: 250 mls/hr CEFTRIAXONE 1 G/50 ML PREMIX (Ceftriaxone 1 Gm-D5w Bag) 50 mls @ 100 mls/hr IVPB DAILY [facility] Last Admin: 10/04/17 09:51 Dose: 100 mls/hr Milrinone Lactate/Dextrose (Milrinone 20mg/100ml Ivpb -) 20,000 mcg in 100 mls @ 12.723 mls/hr IVPB TITR [facility]; 0.5 MCG/KG/MIN PRN Reason: Protocol Last Admin: 10/04/17 06:06 Dose: 0.5 mcg/kg/min, 12.723 mls/hr Insulin Aspart (Novolog Vial Sliding Scale -) 1 vial SQ ACHS [facility] PRN Reason: Protocol Last Admin: 10/04/17 12:12 Dose: 4 units Multivitamins/Minerals/Vitamin C (Tab-A-Vit -) 1 tab PO DAILY [facility] Last Admin: 10/04/17 09:52 Dose: 1 tab Ranitidine HCl (Zantac -) 75 mg PO DAILY [facility] Last Admin: 10/04/17 09:53 Dose: 75 mg Spironolactone (Aldactone -) 25 mg PO DAILY [facility] Last Admin: 10/04/17 09:52 Dose: 25 mg Torsemide (Demadex -) 20 mg PO BID [facility] Last Admin: 10/04/17 09:52 Dose: 20 mg - Objective Vital Signs: Vital Signs Temperature 36.2 C L 10/04/17 05:41 Pulse Rate 75 10/04/17 05:41 Respiratory Rate 20 10/04/17 05:41 Blood Pressure 103/60 10/04/17 05:41 O2 Sat by Pulse Oximetry (%) 93 L 10/03/17 21:00 Constitutional: Yes: Well Nourished, No Distress, Calm Cardiovascular: Yes: Regular Rate and Rhythm. No: Gallop, Murmur, Rub Respiratory: Yes: Regular, On Nasal O2, Rhonchi. No: CTA Bilaterally, Rales, Wheezes Gastrointestinal: Yes: Normal Bowel Sounds, Soft. No: Distention, Tenderness Extremities: Yes: WNL Edema: Yes Edema: LLE: 1+, RLE: 1+ Labs: CBC, BMP 10/04/17 07:01 10/04/17 07:01 INR, PTT INR 3.44 (0.82-1.09) H 10/04/17 07:01 Problem List - Problems (1) Urinary tract infection Code(s): N39.0 - URINARY TRACT INFECTION, SITE NOT SPECIFIED (2) CHF (congestive heart failure) Code(s): I50.9 - HEART FAILURE, UNSPECIFIED Qualifiers: Congestive heart failure type: diastolic Congestive heart failure chronicity: chronic Qualified Code(s): I50.32 - Chronic diastolic (congestive ) heart failure (3) COPD (chronic obstructive pulmonary disease) Code(s): J44.9 - CHRONIC OBSTRUCTIVE PULMONARY DISEASE, UNSPECIFIED (4) CAD (coronary artery disease) Code(s): I25.10 - ATHSCL HEART DISEASE OF [place] CORONARY ARTERY W/O ANG PCTRS (5) CKD (chronic kidney disease) Code(s): N18.9 - CHRONIC KIDNEY DISEASE, UNSPECIFIED Qualifiers: (6) Diabetes Code(s): E11.9 - TYPE 2 DIABETES MELLITUS WITHOUT COMPLICATIONS Qualifiers: Diabetes mellitus type: type 2 Diabetes mellitus complication status: with kidney complications Diabetes mellitus complication detail: with chronic kidney disease Chronic kidney disease stage: stage 4 (severe) Assessment/Plan (1) Urinary tract infection Assessment/Plan: -continue rocephin currently -awaiting urine culture results -urine cultures results c/w partially treated UTI, will await final results for proper oral antibiotic Code(s): N39.0 - URINARY TRACT INFECTION, SITE NOT SPECIFIED (2) CHF (congestive heart failure) Assessment/Plan: -end stage on milrinone -continue current management -at baseline Code(s): I50.9 - HEART FAILURE, UNSPECIFIED Qualifiers: Congestive heart failure type: diastolic Congestive heart failure chronicity: chronic Qualified Code(s): I50.32 - Chronic diastolic (congestive ) heart failure (3) COPD (chronic obstructive pulmonary disease) Assessment/Plan: -appreciate pulmonary assistance -continue current management Code(s): J44.9 - CHRONIC OBSTRUCTIVE PULMONARY DISEASE, UNSPECIFIED (4) CAD (coronary artery disease) Assessment/Plan: -continue home regimen Code(s): I25.10 - ATHSCL HEART DISEASE OF [place] CORONARY ARTERY W/O ANG PCTRS (5) CKD (chronic kidney disease) Assessment/Plan: -at baseline Code(s): N18.9 - CHRONIC KIDNEY DISEASE, UNSPECIFIED Qualifiers: (6) Diabetes Assessment/Plan: -diabetic diet -SSI Code(s): E11.9 - TYPE 2 DIABETES MELLITUS WITHOUT COMPLICATIONS Qualifiers: Diabetes mellitus type: type 2 Diabetes mellitus complication status: with kidney complications Diabetes mellitus complication detail: with chronic kidney disease Chronic kidney disease stage: stage 4 (severe) (7) AMS -resolved -secondary to insomnia Dispo -plan for discharge tomorrow
[2017-10-04] MEDS: FERROUS SO4 325 MG TABLET (FP) PO SCH (14:53)
[2017-10-04] MEDS: ATORVASTATIN CA 40 MG TABLET (FP) PO SCH (21:33)
[2017-10-05] MEDS: MILRINONE 20MG/100ML IVPB - 20,000 MCG/100 ML ML IVPB SCH (00:25)
[2017-10-05] MEDS: INSULIN SLIDING SCALE (NOVOLOG) 1 VIAL SQ SCH ×2 (06:26→13:22)
[2017-10-05 07:24] LABS: HEMATOCRIT 35.7 % (35.4-49); HEMOGLOBIN 11.2 GM/dL (11.7-16.9); MCH 26.2 pg (25.7-33.7); MCHC 31.4 g/dl (32.0-35.9); MEAN CELL VOLUME 83.4 fl (80-96); MEAN PLT VOLUME 8.1 fl (7.5-11.1); PLATELET COUNT 187 K/MM3 (134-434); RBC 4.28 M/mm3 (4.00-5.60); WHITE BLOOD COUNT 9.4 K/mm3 (4.0-10.0)
[2017-10-05 07:47] LABS: INR 2.45 (0.82-1.09); PROTHROMBIN TIME (PATIENT) 27.7 SEC (9.98-11.88)
[2017-10-05 08:36] LABS: ANION GAP 8 (8-16); BLOOD UREA NITROGEN 80 mg/dL (7-18); CALCIUM 8.5 mg/dL (8.5-10.1); CHLORIDE 96 mmol/L (98-107); CO2 31 mmol/L (21-32); CREATININE 2.1 mg/dL (0.7-1.3); GLUCOSE,RANDOM 164 mg/dL (74-106); MAGNESIUM 2.4 mg/dL (1.8-2.4); PHOSPHOROUS 2.7 mg/dL (2.5-4.9); POTASSIUM 4.2 mmol/L (3.5-5.1); SODIUM 135 mmol/L (136-145)
[2017-10-05] MEDS: CHOLECALCIFEROL (VITAMIN D3) 1,000 UNIT TABLET (FP) PO SCH (09:25)
[2017-10-05] MEDS: SPIRONOLACTONE 25 MG TABLET (FP) PO SCH (09:25)
[2017-10-05] MEDS: DOCUSATE SODIUM 100 MG CAPSULE (FP) PO SCH (09:25)
[2017-10-05] MEDS: buPROPion HCL 75 MG TABLET PO SCH (09:25)
[2017-10-05] MEDS: ASCORBIC ACID 500 MG TABLET (FP) PO SCH (09:25)
[2017-10-05] MEDS: MULTIVITAMINS (DAILY MVI) TABLET (FP) PO SCH (09:25)
[2017-10-05] MEDS: ASPIRIN COATED 81 MG TABLET.EC PO SCH (09:26)
[2017-10-05] MEDS: CEFTRIAXONE 1 G/50 ML PREMIX 50 ML IVPB SCH (09:26)
[2017-10-05] MEDS: ALLOPURINOL 100 MG TABLET (FP) PO SCH (09:26)
[2017-10-05] MEDS: CARVEDILOL 6.25 MG TABLET (FP) PO SCH (09:26)
[2017-10-05] MEDS: BUDESONIDE/FORMETEROL FUMARATE 160/4.5 mcg INHALER IH SCH (09:27)
[2017-10-05] MEDS: RANITIDINE HCL 150 MG TABLET (FP) PO SCH (09:27)
[2017-10-05] MEDS: TORSEMIDE 20 MG TABLET (FP) PO SCH (09:27)
[2017-10-05 09:45] LABS: PLATELET ESTIMATE NORMAL
[2017-10-05] MEDS: AZITHROMYCIN IVPB 250 MG in DEXTROSE 5%-WATER - 250 ML IVPB SCH (09:52)
[2017-10-05 11:08] VITALS: BP 106/68; PULSE 76; TEMP 98
--- NOTE | 2017-10-05 11:18 | PN ---
Progress Note (short form) - Note Progress Note: s: feeling at baseline, no sob palps dizzy cp Current Medications Generic Name Dose Route Start Last Admin Trade Name Freq PRN Reason Stop Dose Admin Albuterol Sulfate 1 amp 09/30/17 15:34 Ventolin 0.083% Nebulizer Soln - NEB Q6H PRN SHORT OF BREATH/WHEEZING Allopurinol 100 mg 10/01/17 10:00 10/05/17 09:26 Zyloprim - PO 100 mg DAILY [facility] Administration Ascorbic Acid 1,000 mg 10/01/17 10:00 10/05/17 09:25 Vitamin C - PO 1,000 mg DAILY [facility] Administration Aspirin 81 mg 10/01/17 10:00 10/05/17 09:26 Ecotrin - PO 81 mg DAILY [facility] Administration Atorvastatin Calcium 40 mg 09/30/17 22:00 10/04/17 21:33 Lipitor - PO 40 mg HS [facility] Administration Budesonide/Formoterol Fumarate 1 puff 09/30/17 22:00 10/05/17 09:27 Symbicort 160/4.5mcg - IH 1 puff BID [facility] Administration Bupropion HCl 75 mg 10/01/17 10:00 10/05/17 09:25 Wellbutrin - PO 75 mg DAILY [facility] Administration Carvedilol 6.25 mg 09/30/17 22:00 10/05/17 09:26 Coreg - PO 6.25 mg BID [facility] Administration Cholecalciferol 1,000 unit 10/01/17 12:45 10/05/17 09:25 Vitamin D3 - PO 1,000 unit DAILY [facility] Administration Docusate Sodium 100 mg 09/30/17 22:00 10/05/17 09:25 Colace - PO 100 mg BID [facility] Administration Ferrous Sulfate 325 mg 09/30/17 15:45 10/04/17 14:53 Feosol - PO 325 mg Q48H [facility] Administration Azithromycin 250 mg/ Dextrose 250 mls @ 250 mls/hr 10/01/17 10:00 10/05/17 09 :52 IVPB 250 mls/hr DAILY [facility] Administration CEFTRIAXONE 1 G/50 ML PREMIX 50 mls @ 100 mls/hr 10/01/17 12:45 10/05/17 09: 26 Ceftriaxone 1 Gm-D5w Bag IVPB 100 mls/hr DAILY [facility] Administration Milrinone Lactate/Dextrose 20,000 mcg in 100 mls @ 12.723 mls/hr 10/02/17 22: 15 10/05/17 00:25 Milrinone 20mg/100ml Ivpb - IVPB 0.5 mcg/kg/min TITR [facility] 12.723 mls/hr Protocol Administration 0.5 MCG/KG/MIN Insulin Aspart 1 vial 09/30/17 16:30 10/05/17 06:26 Novolog Vial Sliding Scale - SQ 2 units ACHS [facility] Administration Protocol Multivitamins/Minerals/Vitamin C 1 tab 10/01/17 10:00 10/05/17 09:25 Tab-A-Vit - PO 1 tab DAILY [facility] Administration Ranitidine HCl 75 mg 10/01/17 10:00 10/05/17 09:27 Zantac - PO 75 mg DAILY [facility] Administration Spironolactone 25 mg 10/01/17 10:00 10/05/17 09:25 Aldactone - PO 25 mg DAILY [facility] Administration Torsemide 20 mg 09/30/17 22:00 10/05/17 09:27 Demadex - PO 20 mg BID [facility] Administration Vital Signs Period Temp Pulse Resp BP Sys/Orantes Pulse Ox Last 24 Hr 97.2 F-98.8 F 75-94 18-22 92-111/52-68 96 Constitutional: Yes: Well Nourished, No Distress, Calm Cardiovascular: Yes: Regular Rate and Rhythm, JVD, S1, S2. No: Gallop, Murmur Respiratory: Yes: Regular, Rales (L base), Wheezes (faint bilat). No: Accessory Muscle Use Extremities: No: Cold Edema: Yes (trace ankles) Neurological: Yes: Alert, Oriented Psychiatric: No: Agitated Labs: CBC, BMP 10/05/17 07:07 10/05/17 07:07 - ....Imaging EKG: Other (tele: v-paced) CXR (images reviewed): trace-small bilat effusions; vasc redistribution pattern. alveolar and interstitial infiltrates bilat low/mid lung calderon. no signif change vs 02/27 prior ECG: NSR, bi-V paced Echo 05/2016: sev lve, global hk, sev dec lvef, mild rve, nl rv fcn, estefania, mild- mod mr, mv ring, tv ring, mild tr, mild pr, mild phtn, ivc mild dil a/p: 76 year old man with PMH of IDDM, COPD (O2 dependant) HTN, HLD, Afib (on coumadin), CAD s/p CABG 2012, end stage CHF with ICD placement (on milrinone pump), PVD, BPH here with sob. URI sx's (cough, rhinorrhea), h/o copd: - flu swab negative - ? if a.e. copd at present - per hospitalist chronic systolic CHF, end stage systolic heart failure s/p ICD, on home milrinone infusion: - pt had cardiomems PAP monitor implant with dr harden ([facility]) and has been managed by him since last admit here. - on destination therapy home milrinone infusion, ? if dr harden increased the dose. - baseline renal fxn has worsened on recent labs (high 2's range) - wt 202 on discharge 03/13 following diuresis with lasix 100 iv bid, metolazone 5mg. 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 CXR appears unchanged vs 03/13. suspect he is not decompensated despite JVD (chronic in him)--no periph edema which is consistently CHF finding in him, and no increase in wt. - please confirm home torsemide regimen with . - receiving torsemide 20 bid here. low threshold to hold diuretic if renal fxn worsens further. - 2: wt stable, creat stable, bun up slightly. remains well-compensated with likely no excess volume (chronic JVD here). - 10/03-8: cont home torsemide. routine weekly labs f/u as outpt as already scheduled (has home labs done by chf specialist dr harden) JOHN on CKD, h/o cardiorenal syndrome: - recent outpt creat ranging 2.6-2.9 range - bun/creat above baseline here afib - rate controlled on coreg - cont coumadin per INR (target 2-3) VT: - intermittent brief runs of NSVT on tele, chronic finding on prior admits - has ICD - on max tolerated coreg dose - replete lytes prn CAD s/p NH with PCI (and ? TV repair at that time): - No anginal symptoms, no signs acs. - Con't home ac, asa, atorvastatin, coreg PVD - con't AC, statin. HTN: controlled on coreg HLD: con't statin. D/C TELEMETRY. STABLE FOR D/C HOME FROM [facility] P.O.V.
--- NOTE | 2017-10-05 13:20 | PN ---
Progress Note (short form) - Note Progress Note: PULMONARY Denies shortness of breath, cough or wheezing. Last Vital Signs Temp Pulse Resp BP Pulse Ox 98 F 76 22 106/68 96 10/05/17 10:00 10/05/17 10:00 10/05/17 10:00 10/05/17 10:00 10/04/17 21:00 Gen: NAD at rest Heart: RRR Lung: basilar rales Abd: soft, nontender Ext: no edema CBC, BMP 10/05/17 07:07 10/05/17 07:07 Active Medications Albuterol Sulfate (Ventolin 0.083% Nebulizer Soln -) 1 amp NEB Q6H PRN PRN Reason: SHORT OF BREATH/WHEEZING Allopurinol (Zyloprim -) 100 mg PO DAILY [facility] Last Admin: 10/05/17 09:26 Dose: 100 mg Ascorbic Acid (Vitamin C -) 1,000 mg PO DAILY [facility] Last Admin: 10/05/17 09:25 Dose: 1,000 mg Aspirin (Ecotrin -) 81 mg PO DAILY [facility] Last Admin: 10/05/17 09:26 Dose: 81 mg Atorvastatin Calcium (Lipitor -) 40 mg PO HS [facility] Last Admin: 10/04/17 21:33 Dose: 40 mg Budesonide/Formoterol Fumarate (Symbicort 160/4.5mcg -) 1 puff IH BID [facility] Last Admin: 10/05/17 09:27 Dose: 1 puff Bupropion HCl (Wellbutrin -) 75 mg PO DAILY [facility] Last Admin: 10/05/17 09:25 Dose: 75 mg Carvedilol (Coreg -) 6.25 mg PO BID [facility] Last Admin: 10/05/17 09:26 Dose: 6.25 mg Cholecalciferol (Vitamin D3 -) 1,000 unit PO DAILY [facility] Last Admin: 10/05/17 09:25 Dose: 1,000 unit Docusate Sodium (Colace -) 100 mg PO BID [facility] Last Admin: 10/05/17 09:25 Dose: 100 mg Ferrous Sulfate (Feosol -) 325 mg PO Q48H [facility] Last Admin: 10/04/17 14:53 Dose: 325 mg Azithromycin 250 mg/ Dextrose 250 mls @ 250 mls/hr IVPB DAILY [facility] Last Admin: 10/05/17 09:52 Dose: 250 mls/hr CEFTRIAXONE 1 G/50 ML PREMIX (Ceftriaxone 1 Gm-D5w Bag) 50 mls @ 100 mls/hr IVPB DAILY [facility] Last Admin: 10/05/17 09:26 Dose: 100 mls/hr Milrinone Lactate/Dextrose (Milrinone 20mg/100ml Ivpb -) 20,000 mcg in 100 mls @ 12.723 mls/hr IVPB TITR [facility]; 0.5 MCG/KG/MIN PRN Reason: Protocol Last Admin: 10/05/17 00:25 Dose: 0.5 mcg/kg/min, 12.723 mls/hr Insulin Aspart (Novolog Vial Sliding Scale -) 1 vial SQ ACHS [facility] PRN Reason: Protocol Last Admin: 10/05/17 06:26 Dose: 2 units Multivitamins/Minerals/Vitamin C (Tab-A-Vit -) 1 tab PO DAILY [facility] Last Admin: 10/05/17 09:25 Dose: 1 tab Ranitidine HCl (Zantac -) 75 mg PO DAILY [facility] Last Admin: 10/05/17 09:27 Dose: 75 mg Spironolactone (Aldactone -) 25 mg PO DAILY [facility] Last Admin: 10/05/17 09:25 Dose: 25 mg Torsemide (Demadex -) 20 mg PO BID [facility] Last Admin: 10/05/17 09:27 Dose: 20 mg A/P URI UTI Severe LV Systolic Dysfunction s/p ICD Pulmonary HTN COPD Chronic Hypoxic Respiratory Failure Atrial Fibrillation Acute on Chronic Renal Failure HTN - continue antibiotics - f/u cultures - inhaled bronchodilators - can monitor off systemic steroids at this time - O2 to keep SpO2 >90% - CXR findings appear unchanged or slightly improved from last, appears relatively euvolemic - continue torsemide, aldactone - monitor urine output, creatinine - rate control - continue anticoagulation - continue home milrinone
--- NOTE | 2017-10-05 13:29 | DS ---
Physical Examination Vital Signs: Vital Signs Temperature 36.6 C 10/05/17 10:00 Pulse Rate 76 10/05/17 10:00 Respiratory Rate 22 10/05/17 10:00 Blood Pressure 106/68 10/05/17 10:00 O2 Sat by Pulse Oximetry (%) 96 10/04/17 21:00 Constitutional: Yes: Well Nourished, No Distress, Calm Cardiovascular: Yes: Regular Rate and Rhythm. No: Gallop, Murmur, Rub Respiratory: Yes: Regular, On Nasal O2, Rhonchi. No: CTA Bilaterally, Rales, Wheezes Gastrointestinal: Yes: Normal Bowel Sounds, Soft. No: Distention, Tenderness Extremities: Yes: WNL Edema: No Labs: CBC, BMP 10/05/17 07:07 10/05/17 07:07 Discharge Summary Reason For Visit: COPD SOB PULMONARY INFILTRATE ON XRAY Current Active Problems AICD (automatic cardioverter/defibrillator) present (Acute) Acute kidney injury (Acute) CHF (congestive heart failure) (Acute) COPD (chronic obstructive pulmonary disease) (Acute) Dyspnea on exertion (Acute) Pulmonary infiltrates on CXR (Acute) Shortness of breath (Acute) Hospital Course: (1) Urinary tract infection Code(s): N39.0 - URINARY TRACT INFECTION, SITE NOT SPECIFIED (2) CHF (congestive heart failure) Code(s): I50.9 - HEART FAILURE, UNSPECIFIED Qualifiers: Congestive heart failure type: diastolic Congestive heart failure chronicity: chronic Qualified Code(s): I50.32 - Chronic diastolic (congestive ) heart failure (3) COPD (chronic obstructive pulmonary disease) Code(s): J44.9 - CHRONIC OBSTRUCTIVE PULMONARY DISEASE, UNSPECIFIED (4) CAD (coronary artery disease) Code(s): I25.10 - ATHSCL HEART DISEASE OF [place] CORONARY ARTERY W/O ANG PCTRS (5) CKD (chronic kidney disease) Code(s): N18.9 - CHRONIC KIDNEY DISEASE, UNSPECIFIED Qualifiers: (6) Diabetes Code(s): E11.9 - TYPE 2 DIABETES MELLITUS WITHOUT COMPLICATIONS Qualifiers: Diabetes mellitus type: type 2 Diabetes mellitus complication status: with kidney complications Diabetes mellitus complication detail: with chronic kidney disease Chronic kidney disease stage: stage 4 (severe) Mr Perez is a 77 year old male who came in with concern for pneumonia. He was admitted to the hospital and started on rocephin. He was seen by cardiology and pulmonary, he improved significantly and it was felt he had a viral pneumonia. However he was also noted that patient had a UTI and failed outpatient therapy. Urine culture was sent and grew citrobacter. He was on augmentin at home per his . He was getting rocephin as stated above and this was sensitive, he will be transitioned over to vantin. he is safe for discharge home. 33 minutes spent in preparation of this discharge Condition: Stable - Instructions Diet, Activity, Other Instructions: resume previous diet and activity Referrals: Khang Lopez MD [Primary Care Provider] - Nash Garner MD [Staff Physician] - Miguel Valle MD [Staff Physician] - Disposition: [facility]/HOME HEALTH CARE - Home Medications Comprehensive Discharge Medication List: Ambulatory Orders Allopurinol [Zyloprim -] 100 mg PO DAILY 09/10/15 Atorvastatin Ca [Lipitor] 40 mg PO HS 09/10/15 Carvedilol 6.25 mg PO BID 09/10/15 Docusate Sodium [Colace -] 100 mg PO BID 09/10/15 Insulin NPL/Insulin Lispro [Humalog Mix 75-25 Vial] 0 unit SQ PRN 09/10/15 Milrinone Lactate/D5w [Milrinone 0.2 mg/ml in D5w] 0 mg IV DAILY 09/10/15 Ranitidine [Zantac -] 75 mg PO DAILY 09/10/15 Albuterol 0.083% Nebulizer Jewell [Ventolin 0.083% Nebulizer Soln -] 1 amp NEB Q6H PRN #120 amp 09/14/15 Ferrous Sulfate [Feosol] 325 mg PO Q48H ud 04/23/16 Warfarin Na [Coumadin -] 2 mg PO DAILY@1800 09/06/16 Ascorbic Acid [Vitamin C -] 1,000 mg PO DAILY 11/24/16 Cholecalciferol (Vitamin D3) [Vitamin D -] 1,000 unit PO DAILY 11/24/16 Multivitamin [Poly-Vitamin] 1 each PO DAILY 11/24/16 Budesonide/Formeterol Fumarate [SYMBICORT 160/4.5mcg -] 1 inh PO BID 02/17/17 Torsemide [Demadex -] 20 mg PO BID 02/17/17 Aspirin 81 mg PO DAILY 09/30/17 Cholecalciferol (Vitamin D3) [Vitamin D -] 1,000 unit PO DAILY 09/30/17 Levothyroxine [Synthroid -] 25 mcg PO DAILY 09/30/17 Metolazone 2.5 mg PO DAILY 09/30/17 Spironolactone 25 mg PO DAILY 09/30/17 Warfarin Na [Coumadin -] 2.5 mg PO ASDIR 09/30/17 Bupropion HCl [Wellbutrin -] 75 mg PO DAILY #0 tablet 10/02/17 Aspirin Coated [Ecotrin -] 81 mg PO DAILY tablet.ec 10/05/17 Cefpodoxime Proxetil [Vantin (Nf) -] 100 mg PO BID #20 tablet 10/05/17
== END 2017-10-05 15:07 | disposition home health service (06) | DRG 194 ==
LOC: JER 10:32 → JERBED 14:29 → J4W 20:29
PROVIDERS: ADMIT Hospitalist; ATTEND Internal Medicine
DX: J18.9 Pneumonia, unspecified organism (principal); N17.9 Acute kidney failure, unspecified; I47.2 Ventricular tachycardia; I13.0 Hypertensive heart and chronic kidney disease with heart failure and stage 1 through stage 4 chronic kidney disease, or unspecified chronic kidney disease; I50.22 Chronic systolic (congestive) heart failure; J96.11 Chronic respiratory failure with hypoxia; N39.0 Urinary tract infection, site not specified; N18.4 Chronic kidney disease, stage 4 (severe); I48.91 Unspecified atrial fibrillation; I27.20 Pulmonary hypertension, unspecified; I73.89 Other specified peripheral vascular diseases; I25.10 Atherosclerotic heart disease of native coronary artery without angina pectoris; E11.22 Type 2 diabetes mellitus with diabetic chronic kidney disease; J44.9 Chronic obstructive pulmonary disease, unspecified; E78.00 Pure hypercholesterolemia, unspecified; R41.82 Altered mental status, unspecified; J06.9 Acute upper respiratory infection, unspecified; D64.9 Anemia, unspecified; N40.0 Benign prostatic hyperplasia without lower urinary tract symptoms; I50.84 End stage heart failure; Z95.2 Presence of prosthetic heart valve; Z95.810 Presence of automatic (implantable) cardiac defibrillator; Z87.891 Personal history of nicotine dependence; Z99.81 Dependence on supplemental oxygen; Z79.4 Long term (current) use of insulin; Z79.01 Long term (current) use of anticoagulants
CPT/HCPCS: 36415; 36600; 71045-TC; 76775-TC; 80048; 80053; 81003; 81015; 82436; 82550; 82570; 82803; 82962; 83605; 83735; 83880; 84100; 84133; 84156; 84300; 84484; 84540; 85025; 85610; 85730; 87040; 87086; 87186; 87804; 87899; 93005; 93010; 99282-25

== ENCOUNTER 2018-04-01 21:17 | Inpatient (IN) | payer BC, OTHER ==
--- NOTE | 2018-04-01 22:22 | PDOC ---
History of Present Illness - General Chief Complaint: Shortness of Breath Stated Complaint: TROUBLE BREATHING Time Seen by Provider: 04/01/18 22:22 History Source: Patient, Family Exam Limitations: No Limitations - History of Present Illness Initial Comments: 04/01/18 22:41 77 year old male with PMH CHF, ICD, Atrial fibrillation on Coumadin, COPD, anemia, CAD, HTN, HLD, on continuos milrinone infusion presents to ED for increasing SOB since yesterday. He admits to FREIRE, lightheadedness and leg swelling. He denies chest pain, cough, palpitations, fever, chills, nausea, vomiting, diarrhea, abdominal pain, weakness, numbness. Pt states he has been getting SOB while walking on flat ground, not at rest. Pt uses 2L O2 at home, has had to increase it to 2.5L. PCP - Dr. Lopez Tower Cleaner - Dr. Chandra Allergies - NKDA Past History - Past Medical History Allergies/Adverse Reactions: Allergies Allergy/AdvReac Type Severity Reaction Status Date / Time No Known Drug Allergies Allergy Verified 09/30/17 10:37 shellfish derived Allergy Verified 09/30/17 10:37 Home Medications: Ambulatory Orders Allopurinol [Zyloprim -] 100 mg PO DAILY 09/10/15 Atorvastatin Ca [Lipitor] 40 mg PO HS 09/10/15 Carvedilol 6.25 mg PO BID 09/10/15 Docusate Sodium [Colace -] 100 mg PO BID 09/10/15 Insulin NPL/Insulin Lispro [Humalog Mix 75-25 Vial] 0 unit SQ PRN 09/10/15 Milrinone Lactate/D5w [Milrinone 0.2 mg/ml in D5w] 0 mg IV DAILY 09/10/15 Ranitidine [Zantac -] 75 mg PO DAILY 09/10/15 Albuterol 0.083% Nebulizer Jewell [Ventolin 0.083% Nebulizer Soln -] 1 amp NEB Q6H PRN #120 amp 09/14/15 Ferrous Sulfate [Feosol] 325 mg PO Q48H ud 04/23/16 Warfarin Na [Coumadin -] 2 mg PO DAILY@1800 09/06/16 Ascorbic Acid [Vitamin C -] 1,000 mg PO DAILY 11/24/16 Cholecalciferol (Vitamin D3) [Vitamin D -] 1,000 unit PO DAILY 11/24/16 Multivitamin [Poly-Vitamin] 1 each PO DAILY 11/24/16 Budesonide/Formeterol Fumarate [SYMBICORT 160/4.5mcg -] 1 inh PO BID 02/17/17 Torsemide [Demadex -] 20 mg PO BID 02/17/17 Aspirin 81 mg PO DAILY 09/30/17 Cholecalciferol (Vitamin D3) [Vitamin D -] 1,000 unit PO DAILY 09/30/17 Levothyroxine [Synthroid -] 25 mcg PO DAILY 09/30/17 Metolazone 2.5 mg PO DAILY 09/30/17 Spironolactone 25 mg PO DAILY 09/30/17 Warfarin Na [Coumadin -] 2.5 mg PO ASDIR 09/30/17 Bupropion HCl [Wellbutrin -] 75 mg PO DAILY #0 tablet 10/02/17 Aspirin Coated [Ecotrin -] 81 mg PO DAILY tablet.ec 10/05/17 Cefpodoxime Proxetil [Vantin (Nf) -] 100 mg PO BID #20 tablet 10/05/17 Anemia: Yes Asthma: No Cancer: No Cardiac Disorders: Yes (CHF, [place] 2010,defibrilator placement,PACEMAKER) CVA: No COPD: Yes CHF: Yes Dementia: No Diabetes: Yes GI Disorders: No Disorders: Yes (bph) HTN: Yes Hypercholesterolemia: Yes Liver Disease: No Seizures: No Thyroid Disease: No - Surgical History Abdominal Surgery: Yes (HERNIA REPAIR 2002) Appendectomy: No Cardiac Surgery: Yes (2 OPEN HEART SURGERIES; TRACH PLACEMENT,PACEMAKER PLACED ) Cholecystectomy: Yes Lung Surgery: No Neurologic Surgery: No Orthopedic Surgery: No - Immunization History Td Vaccination: Yes TDAP Vaccination: Yes Immunization Up to Date: Yes - Suicide/Smoking/Psychosocial Hx Smoking Status: No Smoking History: Former smoker Years of Tobacco Use: 40 Have you smoked in the past 12 months: No Number of Cigarettes Smoked Daily: 40 If you are a former smoker, when did you quit?: 2010 Cigars Per Day: 0 Information on smoking cessation initiated: No 'Breaking Loose' booklet given: 02/06/12 Hx Alcohol Use: No Drug/Substance Use Hx: No Substance Use Type: None Hx Substance Use Treatment: No Review of Systems - Review of Systems Able to Perform ROS?: Yes Comments:: 04/01/18 22:43 General: denies fever, chills, night sweats, generalized weakness. HEENT: denies sore throat, rhinorrhea, ear pain. Heart: admits to lower extremity swelling, FREIRE and lightheadedness. denies chest pain, palpitations, syncope, diaphoresis. Respiratory: admits to shortness of breath. denies cough, sputum production, hematemesis. Abdomen: denies abdominal pain, nausea, vomiting, diarrhea, constipation, blood in stool. : denies dysuria, increased urinary frequency, hematuria, urinary incontinence , flank pain. Back: denies back pain, flank pain. Musculoskeletal: denies joint pain, muscle pain, joint swelling. Neurological: denies headache, dizziness, numbness, tingling, weakness. Skin: denies rash, laceration, abrasion. *Physical Exam - Vital Signs Last Vital Signs Temp Pulse Resp BP Pulse Ox 97.8 F 77 28 H 121/64 93 L 04/01/18 21:22 04/01/18 21:22 04/01/18 21:22 04/01/18 21:22 04/01/18 21:22 - Physical Exam Comments: 04/01/18 22:50 Appearance: pt is sitting up in bed, leaning forward. HEENT: head is normocephalic, atraumatic. EOMI. PERRLA. Neck: supple. Full ROM. Heart: regular rhythm. no murmurs. No pericardial friction rub. Lungs: crackles auscultated at left lung base. right lung clear to auscultation. no wheezing, no stridor. voice is hoarse. Abdomen: soft, nontender. normal bowel sounds. no rebound, guarding, masses. Extremities: Peripheral pulses intact and equal. No lower extremity edema. Neurological: Alert. Oriented x3. CN 2-12 grossly intact. Moves all four extremities. ED Treatment Course - LABORATORY CBC & Chemistry Diagram: 04/01/18 23:25 04/01/18 23:25 Medical Decision Making - Medical Decision Making 04/01/18 22:53 77 year old male with PMH CHF, ICD, Atrial fibrillation on Coumadin, COPD, anemia, CAD, HTN, HLD, on continuous milrinone infusion presenting for SOB, FREIRE , lower extremity swelling since yesterday. Crackles at left lung base, no pedal edema, requiring 2L O2. Initial Vital Signs Temp Pulse Resp BP Pulse Ox 97.8 F 77 28 H 121/64 93 L 04/01/18 21:22 04/01/18 21:22 04/01/18 21:22 04/01/18 21:22 04/01/18 21:22 Afebrile. Tachypnea. No hypotension. POC glucose 60. Pt given oranges. Pt is satting 94% on 2L at bedside. Pending labs, EKG, CXR. 04/02/18 00:50 Elevated Cr Elevated BNP Normal CBC, no elevated white count, no left shift. CXR reveals congestive changes. 04/02/18 01:30 Pt complaining of urinary retention, abdominal distension. Montes catheter ordered. Pt will be admitted under Dr. Lagunas's care. I have spoken with Dr. Lagunas and discussed the case with him. *DC/Admit/Observation/Transfer Diagnosis at time of Disposition: CHF exacerbation - Discharge Dispostion Condition at time of disposition: Stable Decision to Admit order: Yes - Referrals Referrals: Khang Lopez MD [Primary Care Provider] - - Patient Instructions - Post Discharge Activity
[2018-04-01] MEDS ORDERED: MILRINONE 20MG/100ML IVPB - 20,000 MCG/100 ML ML IVPB SCH (22:45)
[2018-04-01 23:44] LABS: EOS % 0.7 % (0-4.5); HEMATOCRIT 36.5 % (35.4-49); HEMOGLOBIN 11.8 GM/dL (11.7-16.9); LYMPH % 12.8 % (8-40); MCH 28.2 pg (25.7-33.7); MCHC 32.4 g/dl (32.0-35.9); MEAN PLT VOLUME 8.7 fl (7.5-11.1); MONO % 31.1 % (3.8-10.2); NEUT % 55.4 % (42.8-82.8); PLATELET COUNT 241 K/MM3 (134-434); RDW 16.8 % (11.9-15.9); WHITE BLOOD COUNT 8.6 K/mm3 (4.0-10.0)
[2018-04-01 23:56] LABS: ARTERIAL BLD GAS O2 SATURATION 95.7 % (90-98.9); ARTERIAL BLOOD GAS BASE EXCESS 5.3 meq/l (-2-2); ARTERIAL BLOOD GAS PCO2 38.9 mmHg (35-45); ARTERIAL BLOOD GAS PO2 69.5 mmHg (70-100); ARTERIAL BLOOD GAS pH 7.48 (7.35-7.45)
[2018-04-02 00:10] LABS: ALBUMIN 3.4 g/dl (3.4-5.0); ANION GAP 8 (8-16); BILIRUBIN,TOTAL 0.3 mg/dL (0.2-1.0); BLOOD UREA NITROGEN 85 mg/dL (7-18); CALCIUM 8.9 mg/dL (8.5-10.1); CHLORIDE 97 mmol/L (98-107); CO2 31 mmol/L (21-32); CREATININE 3.3 mg/dL (0.7-1.3); GLUCOSE,RANDOM 74 mg/dL (74-106); POTASSIUM 4.4 mmol/L (3.5-5.1); SGOT/AST 20 U/L (15-37); SGPT/ALT 16 U/L (12-78); SODIUM 136 mmol/L (136-145); TOT PROT 7.6 g/dl (6.4-8.2)
[2018-04-02 00:12] LABS: ALK PHOS 148 U/L (45-117)
[2018-04-02] MEDS ORDERED: WARFARIN NA 2.5 MG TABLET (FP) PO SCH (01:15)
[2018-04-02] MEDS ORDERED: FERROUS SO4 325 MG TABLET (FP) ONE (01:33)
[2018-04-02] MEDS ORDERED: WARFARIN NA 5 MG TABLET (UD) ONE (01:33)
[2018-04-02 02:33] LABS: PLATELET ESTIMATE ADEQUATE
[2018-04-02] MEDS: BUDESONIDE/FORMETEROL FUMARATE 160/4.5 mcg INHALER IH SCH ×3 (03:00→23:00)
[2018-04-02] MEDS: WARFARIN NA 2 MG TABLET (UD) PO SCH ×2 (03:00→18:43)
[2018-04-02] MEDS: DOCUSATE SODIUM 100 MG CAPSULE (FP) PO SCH ×3 (03:00→23:00)
[2018-04-02] MEDS: ATORVASTATIN CA 40 MG TABLET (FP) PO SCH ×2 (03:00→23:00)
[2018-04-02] MEDS ORDERED: LIDOCAINE HCL 2% JELLY 10 ML CARTRIDGE ONE (03:14)
[2018-04-02] MEDS ORDERED: DOCUSATE SODIUM 100 MG CAPSULE (FP) PO ONE ×2 (03:14→23:43)
[2018-04-02] MEDS ORDERED: ATORVASTATIN CA 40 MG TABLET (FP) ONE ×2 (03:14→23:43)
--- NOTE | 2018-04-02 03:29 | PDOC ---
Attending Attestation - Resident Resident Name: Opal Hernandez - ED Attending Attestation I have performed the following: I have examined & evaluated the patient, The case was reviewed & discussed with the resident, I agree w/resident's findings & plan - Medical Decision Making 04/02/18 03:29 Pt will be admitted for CHF exacerbation. <Meghan Yap - Last Filed: 04/02/18 03:29> - HPI HPI: 04/02/18 03:32 The patient is a 77-year-old male with past medical history of CHF, CAD, AFib ( on Coumadin), [place] (2010), COPD, DM, BPH, HTN, HLD, Defibrillator, and pacemaker presents to the emergency department with shortness of breath. The patient presents with SOB for the past 1 day accompanied with dyspnea on exertion and bilateral lower extremity swelling. Denies fever, chills, cough or a headache. Denies chest pain. Denies nausea or vomiting. Denies diarrhea or abdominal pain. At the ER, the patients suggested the patient looked hypoglycemic; patient glucose level was noted to be 60. Allergies: NKDA. Shellfish. Social history: Former smoker. No reported use of alcohol or recreational drugs. Surgical history: Open heart surgery (2x), Trach placement, Pacemaker placed (), Cholecystectomy and Hernia repair (2002). PCP: Khang Stratton MD Wildlife Refuge Manager - Dr. Garner - Physicial Exam PE: 04/02/18 03:32 GENERAL: Awake, alert, and fully oriented, in no acute distress HEAD: No signs of trauma EYES: PERRLA, EOMI, sclera anicteric, conjunctiva clear ENT: Auricles normal inspection, hearing grossly normal, nares patent, oropharynx clear without exudates. Moist mucosa NECK: Normal ROM, supple, no lymphadenopathy, JVD, or masses LUNGS: Breath sounds equal, clear to auscultation bilaterally. No wheezes, and no crackles. No rales. HEART: Regular rate and rhythm, normal S1 and S2, no murmurs, rubs or gallops GI/: Soft. Nontender. Normoactive bowel sounds. No guarding or rebound. No masses. Montes cath draining cloudy urine. EXTREMITIES: B/l pitting edema to the legs, greater in the Left than Right. Normal range of motion, no edema. No clubbing or cyanosis. No cords, erythema, or tenderness NEUROLOGICAL: Cranial nerves II through XII grossly intact. Normal speech, normal gait SKIN: Stage 2 sacral ulcer with no surrounding erythema. Warm, Dry, normal turgor. - Medical Decision Making 04/02/18 03:37 Documentation prepared by Cheryl Lucas, acting as medical psychotherapist for Meghan Yap MD. <Cheryl Lucas - Last Filed: 04/02/18 04:38>
[2018-04-02] MEDS ORDERED: CARVEDILOL 3.125 MG TABLET (FP) ONE ×2 (04:02→23:43)
[2018-04-02] MEDS: CARVEDILOL 6.25 MG TABLET (FP) PO SCH ×3 (04:15→23:00)
[2018-04-02 04:43] LABS: URINE APPEARANCE TURBID; URINE BILIRUBIN NEGATIVE (<2.0 mg/dL); URINE COLOR DKYELLOW; URINE GLUCOSE (UA) NEGATIVE (NEGATIVE); URINE KETONE NEGATIVE (NEGATIVE); URINE NITRITE NEGATIVE (NEGATIVE); URINE UROBILINOGEN NEGATIVE mg/dL (0.2-1.0)
[2018-04-02 04:47] LABS: URINE LEUK ESTERASE 3+ (NEGATIVE); URINE PROTEIN 2+ (NEGATIVE)
[2018-04-02 04:49] LABS: URINE BACTERIA MANY /hpf (NONE SEEN)
[2018-04-02] MEDS: MILRINONE 20MG/100ML IVPB - 20,000 MCG/100 ML ML IVPB SCH (05:50)
[2018-04-02 07:19] LABS: BASO % 0.6 % (0-2.0); EOS % 2.3 % (0-4.5); HEMATOCRIT 34.3 % (35.4-49); HEMOGLOBIN 11.5 GM/dL (11.7-16.9); LYMPH % 28.2 % (8-40); MCH 28.8 pg (25.7-33.7); MCHC 33.4 g/dl (32.0-35.9); MEAN CELL VOLUME 86.1 fl (80-96); MEAN PLT VOLUME 8.8 fl (7.5-11.1); MONO % 15.8 % (3.8-10.2); NEUT % 53.1 % (42.8-82.8); PLATELET COUNT 209 K/MM3 (134-434); RBC 3.99 M/mm3 (4.00-5.60); RDW 16.4 % (11.9-15.9); WHITE BLOOD COUNT 6.4 K/mm3 (4.0-10.0)
[2018-04-02 07:55] LABS: ALBUMIN 3.2 g/dl (3.4-5.0); ANION GAP 9 (8-16); BLOOD UREA NITROGEN 86 mg/dL (7-18); CALCIUM 8.9 mg/dL (8.5-10.1); CHLORIDE 98 mmol/L (98-107); CO2 30 mmol/L (21-32); CREATININE 3.1 mg/dL (0.7-1.3); GLUCOSE,RANDOM 117 mg/dL (74-106); MAGNESIUM 2.8 mg/dL (1.8-2.4); POTASSIUM 3.8 mmol/L (3.5-5.1); SGOT/AST 19 U/L (15-37); SGPT/ALT 14 U/L (12-78); SODIUM 137 mmol/L (136-145)
[2018-04-02 07:58] LABS: ALK PHOS 144 U/L (45-117); BILIRUBIN,TOTAL 0.4 mg/dL (0.2-1.0); TOT PROT 7.2 g/dl (6.4-8.2)
[2018-04-02] MEDS: LEVOTHYROXINE NA 25 MCG TABLET (FP) PO SCH (08:35)
--- NOTE | 2018-04-02 09:42 | CON.CARD ---
Consult Consult Specialty:: cardio - History of Present Illness Chief Complaint: sob History of Present Illness: 77 M here for increasing SOB x2d. for about 5 days last week his urine stream was not flowing normally. [place] [facility] [place] got [place] began feeling sob with little activity. wt that day stable at longstanding baseline (191 lbs). "a little" bit leg swelling. wheezing "a little"--thinks more than baseline. no cough, sore throat, fever/chills. no chest pain. had to incr O2 flow rate at home. had damian placed in ER last night. SOB IS MUCH BETTER TODAY PMH: syst chf copd AF CAD CKD - Past Medical History Cardio/Vascular: Yes: AFIB, CAD, CHF, HTN, Hyperlipdemia, [place], Pulmonary Hypertension, Other (AICD placed) Pulmonary: Yes: COPD, O2 Dependent Renal/: Yes: Renal Inusuff, BPH Endocrine: Yes: Diabetes Mellitus - Past Surgical History Past Surgical History: Yes: AICD, CABG, Hernia Repair - Alcohol/Substance Use Hx Alcohol Use: No History of Substance Use: reports: None - Smoking History Smoking history: Former smoker Have you smoked in the past 12 months: No Aproximately how many cigarettes per day: 40 If you are a former smoker, when did you quit?: 2010 - Social History Usual Living Arrangement: With Spouse ADL: Independent History of Recent Travel: No Home Medications - Allergies Allergies/Adverse Reactions: Allergies Allergy/AdvReac Type Severity Reaction Status Date / Time No Known Drug Allergies Allergy Verified 09/30/17 10:37 shellfish derived Allergy Verified 09/30/17 10:37 - Home Medications Home Medications: Ambulatory Orders Allopurinol [Zyloprim -] 100 mg PO DAILY 09/10/15 Atorvastatin Ca [Lipitor] 40 mg PO HS 09/10/15 Carvedilol 6.25 mg PO BID 09/10/15 Docusate Sodium [Colace -] 100 mg PO BID 09/10/15 Milrinone Lactate/D5w [Milrinone 0.2 mg/ml in D5w] 0.5 mg IV DAILY 09/10/15 Ranitidine [Zantac -] 75 mg PO DAILY 09/10/15 Albuterol 0.083% Nebulizer Jewell [Ventolin 0.083% Nebulizer Soln -] 1 amp NEB Q6H PRN #120 amp 09/14/15 Ferrous Sulfate [Feosol] 325 mg PO Q48H ud 04/23/16 Ascorbic Acid [Vitamin C -] 1,000 mg PO DAILY 11/24/16 Cholecalciferol (Vitamin D3) [Vitamin D -] 1,000 unit PO DAILY 11/24/16 Multivitamin [Poly-Vitamin] 1 each PO DAILY 11/24/16 Budesonide/Formeterol Fumarate [SYMBICORT 160/4.5mcg -] 1 inh PO BID 02/17/17 Torsemide [Demadex -] 20 mg PO BID 02/17/17 Aspirin 81 mg PO DAILY 09/30/17 Cholecalciferol (Vitamin D3) [Vitamin D -] 1,000 unit PO DAILY 09/30/17 Levothyroxine [Synthroid -] 25 mcg PO DAILY 09/30/17 Warfarin Na [Coumadin -] 4 mg PO ASDIR 09/30/17 Bupropion HCl [Wellbutrin -] 75 mg PO DAILY #0 tablet 10/02/17 Aspirin Coated [Ecotrin -] 81 mg PO DAILY tablet.ec 10/05/17 Family Disease History - Family Disease History Family Disease History: Diabetes: Father, Heart Disease: Father Review of Systems - Review of Systems Constitutional: denies: Chills, Fever Eyes: denies: Eye Pain HENT: denies: Nasal Congestion Neck: denies: Stiffness Cardiovascular: denies: Palpitations Respiratory: denies: Orthopnea, PND Gastrointestinal: denies: Diarrhea, Rectal Bleeding Genitourinary: denies: Burning, Hematuria Musculoskeletal: denies: Muscle Pain Integumentary: denies: Rash Neurological: denies: Numbness, Seizure, Syncope Endocrine: denies: Excessive Sweating Hematology/Lymphatic: denies: Excessive Bleeding Vital Signs: Vital Signs Temperature 97.8 F 04/01/18 21:22 Pulse Rate 73 04/02/18 06:36 Respiratory Rate 20 04/02/18 06:36 Blood Pressure 142/87 04/02/18 06:36 O2 Sat by Pulse Oximetry (%) 97 04/02/18 06:36 Constitutional: Yes: Well Nourished, No Distress Eyes: No: Sclera Icterus HENT: No: Nasal Congestion Neck: No: Decreased ROM Respiratory: Yes: CTA Bilaterally, Rales (R base). No: Accessory Muscle Use Gastrointestinal: Yes: Normal Bowel Sounds. No: Distention, Hepatomegaly, Palpable Mass, Tenderness Cardiovascular: Yes: Regular Rate and Rhythm JVD: Yes Carotid Bruit: No PMI: Non-Displaced Heart Sounds: Yes: S1, S2. No: Gallop Murmur: No: Systolic Murmur, Diastolic Murmur Musculoskeletal: Yes: Other (No kyphosis) Extremities: No: Cool, Cyanosis Edema: No Peripheral Pulses: 2+ Left Carotid, 2+ Right Carotid, 2+ Left Doralis Pedis, 2+ Right Dorsalis Pedis Integumentary: No: Jaundice Neurological: Yes: Alert, Oriented (x3) Psychiatric: No: Agitated - Other Data Labs, Other Data: CBC, BMP 04/02/18 06:00 04/02/18 06:00 Troponin, BNP 04/01/18 04/01/18 23:25 23:25 Troponin I 0.04 B-Natriuretic Peptide 4377.29 H Troponin, BNP 04/01/18 04/01/18 23:25 23:25 Troponin I 0.04 B-Natriuretic Peptide 4377.29 H Laboratory Tests 10/05/17 04/01/18 04/01/18 07:07 23:25 23:25 WBC Hgb Plt Count Sodium Potassium Carbon Dioxide BUN 80 H Creatinine 2.1 H Creat Clearance w eGFR AST ALT Troponin I 0.04 B-Natriuretic Peptide 4377.29 H 04/02/18 04/02/18 06:00 06:00 WBC 6.4 Hgb 11.5 L Plt Count 209 Sodium 137 Potassium 3.8 Carbon Dioxide 30 BUN 86 H Creatinine 3.1 H Creat Clearance w eGFR 19.53 AST 19 ALT 14 Troponin I B-Natriuretic Peptide Assessment/Plan Echo 05/2016: sev lve, global hk, sev dec lvef, mild rve, nl rv fcn, estefania, mild- mod mr, mv ring, tv ring, mild tr, mild pr, mild phtn, ivc mild dil CXR: interstitial and alveolar opacities kandi-hilar predominance, + cephalization, no effusions--no change vs 10/15 ECG: V-paced a/p: 76 year old man with PMH of IDDM, COPD (O2 dependant) HTN, HLD, Afib (on coumadin), CAD s/p CABG 2012, end stage CHF with ICD placement (on milrinone pump), PVD, BPH here with increased sob/leg swelling. chronic systolic CHF stage D, s/p ICD, on home milrinone infusion: - pt had cardiomems PAP monitor implant with dr harden ([facility]) and has been managed by him since last admit here. - on destination therapy home milrinone infusion - wt 185 when here 10/15. has been steady at 191 at home including recently. - BNP 4K (prior range 2K-7K), low GFR confounds - CXR no change vs prior. - no signif edema on exam (+ LE edema when decompensated CHF is his pattern. always has chronic JVD likely due to severe TR) - do not think he is in CHF at present. suspect sob sec to transient urine output obstruction - given JOHN likely due to obstruction, and damian placed last night, will observe creat trend and continue home diuretic dose (PO torsemide)--*PLEASE CONFIRM HOME TORSEMIDE DOSE WITH PT'S (listed dose in ER meds list is not accurate) JOHN on CKD, h/o cardiorenal syndrome: - recent outpt creat ranging 2.6-2.9 range - bun/creat above baseline here--? sec to obstruction for 5 days at home - rec renal sono for hydro, +/- consult per pmd COPD, 02 dependent - no temp, normal WBC, no new infiltrates on CXR afib - rate controlled on coreg - cont coumadin per INR (target 2-3) CAD s/p WI with PCI (and ? TV repair at that time): - No anginal symptoms, no signs acs. - Con't home ac PLUS asa, atorvastatin, coreg PVD - con't AC, statin. HTN: -controlled on coreg
[2018-04-02] MEDS ORDERED: SPIRONOLACTONE 25 MG TABLET (FP) PO SCH (10:00)
[2018-04-02] MEDS: FERROUS SO4 325 MG TABLET (FP) PO SCH (10:17)
[2018-04-02] MEDS: ASPIRIN 81 MG CHEWABLE TABLETS PO SCH (10:17)
[2018-04-02] MEDS: ASCORBIC ACID 500 MG TABLET (FP) PO SCH (10:18)
[2018-04-02] MEDS: MULTIVITAMINS (DAILY MVI) TABLET (FP) PO SCH (10:18)
[2018-04-02] MEDS: CHOLECALCIFEROL (VITAMIN D3) 1,000 UNIT TABLET (FP) PO SCH (10:19)
[2018-04-02] MEDS: RANITIDINE HCL 150 MG TABLET (FP) PO SCH (10:19)
[2018-04-02] MEDS: buPROPion HCL 75 MG TABLET PO SCH (10:19)
[2018-04-02] MEDS: ALLOPURINOL 100 MG TABLET (FP) PO SCH (10:19)
[2018-04-02] MEDS: METOLAZONE 2.5 MG TABLET (FP) PO SCH (10:19)
--- NOTE | 2018-04-02 10:41 | HP ---
Admitting History and Physical - Primary Care Physician PCP: Khang Lopez - Admission Chief Complaint: Worsening SOB History of Present Illness: 77 yrs old man multiple Co-morbidities H/O CAD, Ischemic Cradiomyopathy , Stage D systolic HF with low EF on Home Milrinone infusion, s/p AICD, AVR, Afib on Coumadin, COPD CKD stage 3, present with 5 days H/O worsening SOB, FREIRE, LE swelling and decrease urinary output with, no c/o fever, chest pain, sick contact at base line, Patient laso c/o urinary discomfort in the Ed intubated for urinary retention, UA shows multiple WBCs - Past Medical History Cardiovascular: Yes: AFIB, CAD, CHF, HTN, Hyperlipdemia, [place], Pulmonary Hypertension, Other (AICD placed) Pulmonary: Yes: COPD, O2 Dependent Renal/: Yes: Renal Inusuff, BPH Endocrine: Yes: Diabetes Mellitus - Past Surgical History Past Surgical History: Yes: AICD, CABG, Hernia Repair - Smoking History Smoking history: Former smoker Have you smoked in the past 12 months: No Aproximately how many cigarettes per day: 40 If you are a former smoker, when did you quit?: 2011 - Alcohol/Substance Use Hx Alcohol Use: No History of Substance Use: reports: None - Social History ADL: Independent History of Recent Travel: No Home Medications - Allergies Allergies/Adverse Reactions: Allergies Allergy/AdvReac Type Severity Reaction Status Date / Time No Known Drug Allergies Allergy Verified 09/30/17 10:37 shellfish derived Allergy Verified 09/30/17 10:37 - Home Medications Home Medications: Ambulatory Orders Allopurinol [Zyloprim -] 100 mg PO DAILY 09/10/15 Atorvastatin Ca [Lipitor] 40 mg PO HS 09/10/15 Carvedilol 6.25 mg PO BID 09/10/15 Docusate Sodium [Colace -] 100 mg PO BID 09/10/15 Milrinone Lactate/D5w [Milrinone 0.2 mg/ml in D5w] 0.5 mg IV DAILY 09/10/15 Ranitidine [Zantac -] 75 mg PO DAILY 09/10/15 Albuterol 0.083% Nebulizer Jewell [Ventolin 0.083% Nebulizer Soln -] 1 amp NEB Q6H PRN #120 amp 01/18/16 Ferrous Sulfate [Feosol] 325 mg PO Q48H ud 04/23/16 Ascorbic Acid [Vitamin C -] 1,000 mg PO DAILY 11/24/16 Cholecalciferol (Vitamin D3) [Vitamin D -] 1,000 unit PO DAILY 11/24/16 Multivitamin [Poly-Vitamin] 1 each PO DAILY 11/24/16 Budesonide/Formeterol Fumarate [SYMBICORT 160/4.5mcg -] 1 inh PO BID 02/17/17 Torsemide [Demadex -] 20 mg PO BID 02/17/17 Aspirin 81 mg PO DAILY 09/30/17 Cholecalciferol (Vitamin D3) [Vitamin D -] 1,000 unit PO DAILY 09/30/17 Levothyroxine [Synthroid -] 25 mcg PO DAILY 09/30/17 Warfarin Na [Coumadin -] 4 mg PO ASDIR 09/30/17 Bupropion HCl [Wellbutrin -] 75 mg PO DAILY #0 tablet 10/02/17 Aspirin Coated [Ecotrin -] 81 mg PO DAILY tablet.ec 10/05/17 Family Disease History - Family Disease History Family Disease History: Diabetes: Father, Heart Disease: Father Review of Systems - Review of Systems Constitutional: reports: Chills. denies: Diaphoresis Eyes: denies: Blurred Vision, Double Vision Neck: denies: Decreased ROM, Lumps, Pain on Movement Cardiovascular: reports: Edema, Shortness of Breath. denies: Chest Pain, Palpitations Respiratory: reports: Exercise Intolerance, Orthopnea. denies: Hemoptysis Gastrointestinal: denies: Abdominal Pain, Bloating, Constipation Genitourinary: reports: Burning, Dysuria Musculoskeletal: reports: Back Pain. denies: Crepitus, Decreased ROM Neurological: denies: Change in LOC, Change in Speech Endocrine: reports: No Symptoms. 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 Code(s): I50.23 - ACUTE ON CHRONIC SYSTOLIC (CONGESTIVE) HEART FAILURE (2) Acute on chronic renal insufficiency Assessment/Plan: A sase line SKD stage 3B Creat 2.6 to 2.8 present with acute rise in creatnine possible Cardio renal or obstructive uropathy F/U Renal recommendations Code(s): N28.9 - DISORDER OF KIDNEY AND URETER, UNSPECIFIED; N18.9 - CHRONIC KIDNEY DISEASE, UNSPECIFIED (3) COPD (chronic obstructive pulmonary disease) Assessment/Plan: Cont Nebs treatment Code(s): J44.9 - CHRONIC OBSTRUCTIVE PULMONARY DISEASE, UNSPECIFIED (4) CAD (coronary artery disease) Assessment/Plan: S/P RI and PCI cont all homeno active issue at present Code(s): I25.10 - ATHSCL HEART DISEASE OF INUPIAT CORONARY ARTERY W/O ANG PCTRS (5) Atrial fibrillation Assessment/Plan: S/P Code(s): I48.91 - UNSPECIFIED ATRIAL FIBRILLATION Qualifiers: Atrial fibrillation type: chronic Qualified Code(s): I48.2 - Chronic atrial fibrillation (6) Urinary tract infection Assessment/Plan: Multiple WBC in urine Iv Ceftriaxone F/U Urine and blood culture Code(s): N39.0 - URINARY TRACT INFECTION, SITE NOT SPECIFIED (7) Obstructive uropathy Assessment/Plan: urinary obstruction s/p foleys will F/U and renal ultrasound Code(s): N13.9 - OBSTRUCTIVE AND REFLUX UROPATHY, UNSPECIFIED
[2018-04-02 11:35] LABS: PROTHROMBIN TIME (PATIENT) 34.7 SEC (9.7-13.0)
[2018-04-02 11:43] LABS: INR 3.07 (0.83-1.09)
--- NOTE | 2018-04-02 11:43 | EKG ---
Test Reason : Blood Pressure : / mmHG Vent. Rate : 075 BPM Atrial Rate : 068 BPM P-R Int : 000 ms QRS Dur : 168 ms QT Int : 506 ms P-R-T Axes : 000 214 064 degrees QTc Int : 565 ms Ventricular-paced rhythm Biventricular pacemaker detected ABNORMAL ECG WHEN COMPARED WITH ECG OF 30-SEP-2017 11:44, NO SIGNIFICANT CHANGE WAS FOUND Confirmed by MONA OVALLES MD ([id number]) on 04/02/2018 11:42:38 AM Referred By: Confirmed By:MONA OVALLES MD
--- NOTE | 2018-04-02 11:56 | CONSULT ---
Consult - text type - Consultation Consultation Note: Renal Consult for JOHN on CKD This is a 77 year old gentleman with PMhx of CKD stage 4, End-stage HF on home milrinone infusion, Afib on Coumadin, CAD, COPD who presented with SOB and difficulty voiding and found to have acute HF with JOHN in setting of obstruction. Pt reports difficultly voiding x 1 week. Hx of BPH with TURP in the past. Denies any blood in urine. No fever or chills. No NSAID use or contrast exposure. No skin rash. Feel better s/p damian placement. Currently in [place]. PMhx: as above Allergies: NKDA Family Hx: NC Social hx : No T/A/D ROS: as per HPI, all other pertinent ros negative Home Medications Medication Instructions Recorded Allopurinol [Zyloprim -] 100 mg PO DAILY 09/10/15 Atorvastatin Ca [Lipitor] 40 mg PO HS 09/10/15 Carvedilol 6.25 mg PO BID 09/10/15 Docusate Sodium [Colace -] 100 mg PO BID 09/10/15 Milrinone Lactate/D5w [Milrinone 0.5 mg IV DAILY 09/10/15 0.2 mg/ml in D5w] Ranitidine [Zantac -] 75 mg PO DAILY 09/10/15 Albuterol 0.083% Nebulizer Jewell 1 amp NEB Q6H PRN #120 amp 09/14/15 [Ventolin 0.083% Nebulizer Soln -] Ferrous Sulfate [Feosol] 325 mg PO Q48H ud 04/23/16 Ascorbic Acid [Vitamin C -] 1,000 mg PO DAILY 11/24/16 Cholecalciferol (Vitamin D3) 1,000 unit PO DAILY 11/24/16 [Vitamin D -] Multivitamin [Poly-Vitamin] 1 each PO DAILY 11/24/16 Budesonide/Formeterol Fumarate 1 inh PO BID 02/17/17 [SYMBICORT 160/4.5mcg -] Torsemide [Demadex -] 20 mg PO BID 02/17/17 Aspirin 81 mg PO DAILY 09/30/17 Cholecalciferol (Vitamin D3) 1,000 unit PO DAILY 09/30/17 [Vitamin D -] Levothyroxine [Synthroid -] 25 mcg PO DAILY 09/30/17 Warfarin Na [Coumadin -] 4 mg PO ASDIR 09/30/17 Bupropion HCl [Wellbutrin -] 75 mg PO DAILY #0 tablet 10/02/17 Aspirin Coated [Ecotrin -] 81 mg PO DAILY tablet.ec 10/05/17 Vital Signs Temperature 97.8 F 04/01/18 21:22 Pulse Rate 73 04/02/18 06:36 Respiratory Rate 20 04/02/18 06:36 Blood Pressure 142/87 04/02/18 06:36 O2 Sat by Pulse Oximetry (%) 97 04/02/18 06:36 Intake & Output 03/30/18 03/31/18 04/01/18 04/02/18 23:59 23:59 23:59 23:59 Weight 86.636 kg NAD on NC O2 Neck supple, No JVD MMM irregular HR, no M/R Dec BS at lung bases distended abd, + mild ascities no bladder distension No LE edema, clubbing or cyanosis CBC, BMP 04/02/18 06:00 04/02/18 06:00 Current Medications Albuterol Sulfate (Ventolin 0.083% Nebulizer Soln -) 1 amp NEB Q6H PRN PRN Reason: SHORT OF BREATH/WHEEZING Allopurinol (Zyloprim -) 100 mg PO DAILY [facility] Last Admin: 04/02/18 10:19 Dose: 100 mg Ascorbic Acid (Vitamin C -) 1,000 mg PO DAILY [facility] Last Admin: 04/02/18 10:18 Dose: 1,000 mg Aspirin (Asa -) 81 mg PO DAILY [facility] Last Admin: 04/02/18 10:17 Dose: 81 mg Atorvastatin Calcium (Lipitor -) 40 mg PO HS [facility] Last Admin: 04/02/18 03:00 Dose: 40 mg Budesonide/Formoterol Fumarate (Symbicort 160/4.5mcg -) 1 puff IH BID [facility] Last Admin: 04/02/18 03:00 Dose: 1 puff Bupropion HCl (Wellbutrin -) 75 mg PO DAILY [facility] Last Admin: 04/02/18 10:19 Dose: 75 mg Carvedilol (Coreg -) 6.25 mg PO BID [facility] Last Admin: 04/02/18 10:17 Dose: 6.25 mg Cholecalciferol (Vitamin D3 -) 1,000 unit PO DAILY [facility] Last Admin: 04/02/18 10:19 Dose: 1,000 unit Docusate Sodium (Colace -) 100 mg PO BID [facility] Last Admin: 04/02/18 10:17 Dose: 100 mg Ferrous Sulfate (Feosol -) 325 mg PO Q2D@1000 [facility] Last Admin: 04/02/18 10:17 Dose: 325 mg Milrinone Lactate/Dextrose (Milrinone 20mg/100ml Ivpb -) 20,000 mcg in 100 mls @ 12.995 mls/hr IVPB TITR [facility]; Protocol Last Admin: 04/02/18 05:50 Dose: 0.5 mcg/kg/min, 12.995 mls/hr Ceftriaxone Sodium 1 gm/ (Dextrose) 50 mls @ 100 mls/hr IVPB DAILY [facility] Levothyroxine Sodium (Synthroid -) 25 mcg PO DAILY@0700 [facility] Last Admin: 04/02/18 08:35 Dose: 25 mcg Metolazone (Zaroxolyn -) 2.5 mg PO DAILY [facility] Last Admin: 04/02/18 10:19 Dose: 2.5 mg Multivitamins/Minerals/Vitamin C (Tab-A-Vit -) 1 tab PO DAILY [facility] Last Admin: 04/02/18 10:18 Dose: 1 tab Ranitidine HCl (Zantac -) 75 mg PO DAILY [facility] Last Admin: 04/02/18 10:19 Dose: 75 mg Warfarin Sodium (Coumadin -) 4 mg PO DAILY@1800 [facility] Last Admin: 04/02/18 03:00 Dose: 4 mg 77 year old gentleman with PMhx of CKD stage 4, End-stage HF on home milrinone infusion, Afib on Coumadin, CAD, COPD who presented with SOB and difficulty voiding and found to have acute HF with JOHN in setting of obstruction. #JOHN secondary to bladder outlet obstruction #CKD stage 4 #Chronic Endstage LV failure #Anemia #Pyuira r/o UTI/Cystitis foely in place and pt is making urine US of kidneys being performed Urology consult for evalulation of bladder outlet obstruction Continue Torsemide at home dose Continue Zaroxyolyn Trend renal function and electrolytes continue Milrinone gtt Check iron studies Thank you Will follow Jeyson Terry DO
[2018-04-02] MEDS: CEFTRIAXONE 1 GM in DEXTROSE 5%-WATER - 50 ML IVPB SCH (12:18)
[2018-04-02] MEDS: TORSEMIDE 20 MG TABLET (FP) PO SCH (16:19)
[2018-04-02] MEDS ORDERED: WARFARIN NA 5 MG TABLET (UD) PO SCH (18:00)
[2018-04-02] MEDS ORDERED: TORSEMIDE 20 MG TABLET (FP) PO SCH (22:00)
[2018-04-03] MEDS: ALBUTEROL SO4 0.083% IH SOL 2.5 MG/3 ML VIAL.NEB. NEB PRN ×2 (03:32→21:05)
[2018-04-03] MEDS: MILRINONE 20MG/100ML IVPB - 20,000 MCG/100 ML ML IVPB SCH ×4 (03:58→22:24)
[2018-04-03] MEDS ORDERED: TORSEMIDE 20 MG TABLET (FP) PO SCH (06:00)
[2018-04-03] MEDS: TORSEMIDE 20 MG TABLET (FP) PO SCH ×2 (06:06→13:50)
[2018-04-03] MEDS: LEVOTHYROXINE NA 25 MCG TABLET (FP) PO SCH (06:07)
[2018-04-03 06:14] LABS: BASO % 0.3 % (0-2.0); EOS % 2.2 % (0-4.5); HEMATOCRIT 32.8 % (35.4-49); HEMOGLOBIN 11.1 GM/dL (11.7-16.9); LYMPH % 19.4 % (8-40); MCH 29.2 pg (25.7-33.7); MCHC 33.8 g/dl (32.0-35.9); MEAN CELL VOLUME 86.4 fl (80-96); MEAN PLT VOLUME 8.6 fl (7.5-11.1); MONO % 12.5 % (3.8-10.2); NEUT % 65.6 % (42.8-82.8); PLATELET COUNT 200 K/MM3 (134-434); RDW 16.6 % (11.9-15.9); WHITE BLOOD COUNT 6.7 K/mm3 (4.0-10.0)
[2018-04-03 06:44] LABS: ALBUMIN 3.1 g/dl (3.4-5.0); ALK PHOS 134 U/L (45-117); ANION GAP 8 (8-16); BILIRUBIN,TOTAL 0.3 mg/dL (0.2-1.0); BLOOD UREA NITROGEN 72 mg/dL (7-18); CALCIUM 8.7 mg/dL (8.5-10.1); CHLORIDE 102 mmol/L (98-107); CO2 32 mmol/L (21-32); CREATININE 2.7 mg/dL (0.7-1.3); GLUCOSE,RANDOM 203 mg/dL (74-106); POTASSIUM 4.1 mmol/L (3.5-5.1); SGOT/AST 18 U/L (15-37); SGPT/ALT 13 U/L (12-78); SODIUM 142 mmol/L (136-145); TOT PROT 6.8 g/dl (6.4-8.2)
[2018-04-03] MEDS ORDERED: DEXTROSE 5%-WATER - 50 ML IVPB ONE (09:37)
[2018-04-03] MEDS ORDERED: cefTRIAXone SODIUM 1 GM VIAL ONE ×2 (09:37→13:49)
[2018-04-03] MEDS: DOCUSATE SODIUM 100 MG CAPSULE (FP) PO SCH ×2 (09:57→22:24)
[2018-04-03] MEDS: ASCORBIC ACID 500 MG TABLET (FP) PO SCH (09:57)
[2018-04-03] MEDS: CHOLECALCIFEROL (VITAMIN D3) 1,000 UNIT TABLET (FP) PO SCH (09:57)
[2018-04-03] MEDS: METOLAZONE 2.5 MG TABLET (FP) PO SCH (09:57)
[2018-04-03] MEDS: RANITIDINE HCL 150 MG TABLET (FP) PO SCH (09:57)
[2018-04-03] MEDS: CARVEDILOL 6.25 MG TABLET (FP) PO SCH ×2 (09:57→22:24)
[2018-04-03] MEDS: MULTIVITAMINS (DAILY MVI) TABLET (FP) PO SCH (09:57)
[2018-04-03] MEDS: ALLOPURINOL 100 MG TABLET (FP) PO SCH (09:58)
[2018-04-03] MEDS: BUDESONIDE/FORMETEROL FUMARATE 160/4.5 mcg INHALER IH SCH ×2 (09:58→22:23)
[2018-04-03] MEDS: buPROPion HCL 75 MG TABLET PO SCH (09:58)
[2018-04-03] MEDS: CEFTRIAXONE 1 GM in DEXTROSE 5%-WATER - 50 ML IVPB SCH ×2 (09:58→13:51)
[2018-04-03] MEDS: ASPIRIN 81 MG CHEWABLE TABLETS PO SCH (09:58)
[2018-04-03] MEDS ORDERED: MILRINONE LACTATE IV SCH (10:00)
[2018-04-03] MEDS ORDERED: D5W IV SCH (10:00)
[2018-04-03] MEDS ORDERED: [UNRECOGNIZED DRUG - OTHER] IV SCH (10:00)
--- NOTE | 2018-04-03 10:07 | PN ---
Progress Note (short form) - Note Progress Note: cc: SOB S: sob improved. no cp dizzy palps edema Current Medications Albuterol Sulfate (Ventolin 0.083% Nebulizer Soln -) 1 amp NEB Q6H PRN PRN Reason: SHORT OF BREATH/WHEEZING Last Admin: 04/03/18 03:32 Dose: 1 amp Allopurinol (Zyloprim -) 100 mg PO DAILY [facility] Last Admin: 04/03/18 09:58 Dose: 100 mg Ascorbic Acid (Vitamin C -) 1,000 mg PO DAILY [facility] Last Admin: 04/03/18 09:57 Dose: 1,000 mg Aspirin (Asa -) 81 mg PO DAILY [facility] Last Admin: 04/03/18 09:58 Dose: 81 mg Atorvastatin Calcium (Lipitor -) 40 mg PO HS [facility] Last Admin: 04/02/18 23:00 Dose: 40 mg Budesonide/Formoterol Fumarate (Symbicort 160/4.5mcg -) 1 puff IH BID [facility] Last Admin: 04/03/18 09:58 Dose: 1 puff Bupropion HCl (Wellbutrin -) 75 mg PO DAILY [facility] Last Admin: 04/03/18 09:58 Dose: 75 mg Carvedilol (Coreg -) 6.25 mg PO BID [facility] Last Admin: 04/03/18 09:57 Dose: 6.25 mg Cholecalciferol (Vitamin D3 -) 1,000 unit PO DAILY [facility] Last Admin: 04/03/18 09:57 Dose: 1,000 unit Docusate Sodium (Colace -) 100 mg PO BID [facility] Last Admin: 04/03/18 09:57 Dose: 100 mg Ferrous Sulfate (Feosol -) 325 mg PO Q2D@1000 [facility] Last Admin: 04/02/18 10:17 Dose: 325 mg Milrinone Lactate/Dextrose (Milrinone 20mg/100ml Ivpb -) 20,000 mcg in 100 mls @ 12.995 mls/hr IVPB TITR [facility]; Protocol Last Admin: 04/03/18 09:56 Dose: 0.5 mcg/kg/min, 12.995 mls/hr Ceftriaxone Sodium 1 gm/ (Dextrose) 50 mls @ 100 mls/hr IVPB DAILY [facility] Last Admin: 04/03/18 09:58 Dose: Not Given Levothyroxine Sodium (Synthroid -) 25 mcg PO DAILY@0700 [facility] Last Admin: 04/03/18 06:07 Dose: 25 mcg Metolazone (Zaroxolyn -) 2.5 mg PO DAILY [facility] Last Admin: 04/03/18 09:57 Dose: 2.5 mg Multivitamins/Minerals/Vitamin C (Tab-A-Vit -) 1 tab PO DAILY [facility] Last Admin: 04/03/18 09:57 Dose: 1 tab Ranitidine HCl (Zantac -) 75 mg PO DAILY [facility] Last Admin: 04/03/18 09:57 Dose: 75 mg Torsemide (Demadex -) 20 mg PO BIDLASIX [facility] Last Admin: 04/03/18 06:06 Dose: 20 mg Warfarin Sodium (Coumadin -) 4 mg PO DAILY@1800 [facility] Last Admin: 04/02/18 18:43 Dose: Not Given Vital Signs: Vital Signs Period Temp Pulse Resp BP Sys/Orantes Pulse Ox Last 24 Hr 95.7 F-98.1 F 75-77 18-21 105-119/55-66 92-97 Constitutional: Yes: Well Nourished, No Distress Eyes: No: Sclera Icterus HENT: No: Nasal Congestion Neck: No: Decreased ROM Respiratory: Yes: CTA Bilaterally, Rales (R base). No: Accessory Muscle Use Gastrointestinal: Yes: Normal Bowel Sounds. No: Distention, Hepatomegaly, Palpable Mass, Tenderness Cardiovascular: Yes: Regular Rate and Rhythm JVD: Yes Carotid Bruit: No PMI: Non-Displaced Heart Sounds: Yes: S1, S2. No: Gallop Murmur: No: Systolic Murmur, Diastolic Murmur Musculoskeletal: Yes: Other (No kyphosis) Extremities: No: Cool, Cyanosis Edema: No Peripheral Pulses: 2+ Left Carotid, 2+ Right Carotid, 2+ Left Doralis Pedis, 2+ Right Dorsalis Pedis Integumentary: No: Jaundice Neurological: Yes: Alert, Oriented (x3) Psychiatric: No: Agitated Assessment/Plan Echo 05/2016: sev lve, global hk, sev dec lvef, mild rve, nl rv fcn, estefania, mild- mod mr, mv ring, tv ring, mild tr, mild pr, mild phtn, ivc mild dil CXR: interstitial and alveolar opacities kandi-hilar predominance, + cephalization, no effusions--no change vs 10/15 ECG: V-paced a/p: 76 year old man with PMH of IDDM, COPD (O2 dependant) HTN, HLD, Afib (on coumadin), CAD s/p CABG 2012, end stage CHF with ICD placement (on milrinone pump), PVD, BPH here with increased sob/leg swelling. chronic systolic CHF stage D, s/p ICD, on home milrinone infusion: - pt had cardiomems PAP monitor implant with dr harden ([facility]) and has been managed by him since last admit here. - on destination therapy home milrinone infusion - weight stable, BNP stable, CXR unchanged, euvolemic on exam, unlikely CHF exacerbation - Continue home dose of torsemide, clarified to be 20 mg daily alternating with 20 mg BID, urine output now improving after damian placed JOHN on CKD, h/o cardiorenal syndrome: - recent outpt creat ranging 2.6-2.9 range - BUN/Cr improving after damian placement, no acute process on renal ultrasound - Nephrology and urology consulted COPD, 02 dependent - no temp, normal WBC, no new infiltrates on CXR afib - rate controlled on coreg - cont coumadin per INR (target 2-3) CAD s/p TN with PCI (and ? TV repair at that time): - No anginal symptoms, no signs acs. - Con't home ac PLUS asa, atorvastatin, coreg PVD - con't AC, statin. HTN: -controlled on coreg
--- NOTE | 2018-04-03 11:56 | PN ---
Progress Note, Physician Chief Complaint: Feels improved no c/o SOB - Current Medication List Current Medications: Active Medications Albuterol Sulfate (Ventolin 0.083% Nebulizer Soln -) 1 amp NEB Q6H PRN PRN Reason: SHORT OF BREATH/WHEEZING Last Admin: 04/03/18 03:32 Dose: 1 amp Allopurinol (Zyloprim -) 100 mg PO DAILY [facility] Last Admin: 04/03/18 09:58 Dose: 100 mg Ascorbic Acid (Vitamin C -) 1,000 mg PO DAILY [facility] Last Admin: 04/03/18 09:57 Dose: 1,000 mg Aspirin (Asa -) 81 mg PO DAILY [facility] Last Admin: 04/03/18 09:58 Dose: 81 mg Atorvastatin Calcium (Lipitor -) 40 mg PO HS [facility] Last Admin: 04/02/18 23:00 Dose: 40 mg Budesonide/Formoterol Fumarate (Symbicort 160/4.5mcg -) 1 puff IH BID [facility] Last Admin: 04/03/18 09:58 Dose: 1 puff Bupropion HCl (Wellbutrin -) 75 mg PO DAILY [facility] Last Admin: 04/03/18 09:58 Dose: 75 mg Carvedilol (Coreg -) 6.25 mg PO BID [facility] Last Admin: 04/03/18 09:57 Dose: 6.25 mg Cholecalciferol (Vitamin D3 -) 1,000 unit PO DAILY [facility] Last Admin: 04/03/18 09:57 Dose: 1,000 unit Docusate Sodium (Colace -) 100 mg PO BID [facility] Last Admin: 04/03/18 09:57 Dose: 100 mg Ferrous Sulfate (Feosol -) 325 mg PO Q2D@1000 [facility] Last Admin: 04/02/18 10:17 Dose: 325 mg Milrinone Lactate/Dextrose (Milrinone 20mg/100ml Ivpb -) 20,000 mcg in 100 mls @ 12.995 mls/hr IVPB TITR [facility]; Protocol Last Admin: 04/03/18 09:56 Dose: 0.5 mcg/kg/min, 12.995 mls/hr Ceftriaxone Sodium 1 gm/ (Dextrose) 50 mls @ 100 mls/hr IVPB DAILY [facility] Last Admin: 04/03/18 09:58 Dose: Not Given Levothyroxine Sodium (Synthroid -) 25 mcg PO DAILY@0700 [facility] Last Admin: 04/03/18 06:07 Dose: 25 mcg Metolazone (Zaroxolyn -) 2.5 mg PO DAILY [facility] Last Admin: 04/03/18 09:57 Dose: 2.5 mg Multivitamins/Minerals/Vitamin C (Tab-A-Vit -) 1 tab PO DAILY [facility] Last Admin: 04/03/18 09:57 Dose: 1 tab Ranitidine HCl (Zantac -) 75 mg PO DAILY [facility] Last Admin: 04/03/18 09:57 Dose: 75 mg Torsemide (Demadex -) 20 mg PO BIDLASIX [facility] Last Admin: 04/03/18 06:06 Dose: 20 mg Warfarin Sodium (Coumadin -) 4 mg PO DAILY@1800 [facility] Last Admin: 04/02/18 18:43 Dose: Not Given - Objective Vital Signs: Vital Signs Temperature 97.5 F L 04/03/18 05:41 Pulse Rate 75 04/03/18 05:41 Respiratory Rate 20 04/03/18 05:41 Blood Pressure 105/60 04/03/18 05:41 O2 Sat by Pulse Oximetry (%) 92 L 04/03/18 02:50 Elderly man not in distress HEENT: Mm moist, anemia, + NECK; JVD +, no Bruit CHEST: B/L Crepts CVS: S1S2 SM + irr ABD: no distention non tender, BS + EXT: Edema feet improved , Pulses + [employer]; AOX3 non focal Labs: CBC, BMP 04/03/18 05:30 04/03/18 05:30 INR, PTT INR 3.07 (0.83-1.09) H* 04/02/18 11:05 Problem List - Problems (1) Heart failure, systolic, with acute decompensation Assessment/Plan: Patient has acute decompensation of chronic sHF on Milrinone s/p AICD as per since ast visit to [facility] CHF clinic around 1 wk ago, CHF team prescribed Toresamide 20 mg daily and 20 mg BID on alternate day , his previous dosse was 20mg BID, will resume home dose of Diuretics cont B Blockers, Stain will F/u Cardiology input. Code(s): I50.23 - ACUTE ON CHRONIC SYSTOLIC (CONGESTIVE) HEART FAILURE (2) Acute on chronic renal insufficiency Assessment/Plan: trended 2/7 base line CKD stage 3B Creat 2.6 to 2.8 present with acute rise in creatnine possible Cardio renal or obstructive uropathy F/U Renal recommendations Code(s): N28.9 - DISORDER OF KIDNEY AND URETER, UNSPECIFIED; N18.9 - CHRONIC KIDNEY DISEASE, UNSPECIFIED (3) COPD (chronic obstructive pulmonary disease) Assessment/Plan: Cont Nebs treatment Code(s): J44.9 - CHRONIC OBSTRUCTIVE PULMONARY DISEASE, UNSPECIFIED (4) CAD (coronary artery disease) Assessment/Plan: S/P [place] and PCI cont all home meds no active issue at present Code(s): I25.10 - ATHSCL HEART DISEASE OF [place] CORONARY ARTERY W/O ANG PCTRS (5) Atrial fibrillation Assessment/Plan: Rtae controlled on AC F/U INR in am Code(s): I48.91 - UNSPECIFIED ATRIAL FIBRILLATION Qualifiers: Atrial fibrillation type: chronic Qualified Code(s): I48.2 - Chronic atrial fibrillation (6) Urinary tract infection Assessment/Plan: as per dysuria for 1 wk on Monday patient was put on Bactrim but remained symptomatic so came to ED , afebrile, voided cpody urine Multiple WBC in urine Iv Ceftriaxone F/U Urine and blood culture Code(s): N39.0 - URINARY TRACT INFECTION, SITE NOT SPECIFIED (7) Obstructive uropathy Assessment/Plan: Will call urology urinary obstruction s/p foleys , renal ultrasound no hydronephrosis Code(s): N13.9 - OBSTRUCTIVE AND REFLUX UROPATHY, UNSPECIFIED
[2018-04-03 13:37] LABS: PROTHROMBIN TIME (PATIENT) 47.7 SEC (9.7-13.0)
[2018-04-03 13:39] LABS: INR 4.22 (0.83-1.09)
--- NOTE | 2018-04-03 16:25 | PN ---
Progress Note (short form) - Note Progress Note: Renal follow up for JOHN on CKD Pt seen and examined at the bedside awake and alert no sob, chest pain, abd pain making urine via catheter Vital Signs Temperature 97.4 F L 04/03/18 14:35 Pulse Rate 74 04/03/18 14:35 Respiratory Rate 18 04/03/18 14:35 Blood Pressure 115/69 04/03/18 14:35 O2 Sat by Pulse Oximetry (%) 92 L 04/03/18 02:50 Intake & Output 03/31/18 04/01/18 04/02/18 04/03/18 23:59 23:59 23:59 23:59 Intake Total 50 141.6 Output Total 2400 Balance 50 -2258.4 Weight 86.636 kg 86.183 kg NAD RRR, No M/R Dec BS at lung bases, no rales soft NT/ND + edema CBC, BMP 04/03/18 05:30 04/03/18 05:30 Current Medications Albuterol Sulfate (Ventolin 0.083% Nebulizer Soln -) 1 amp NEB Q6H PRN PRN Reason: SHORT OF BREATH/WHEEZING Last Admin: 04/03/18 03:32 Dose: 1 amp Allopurinol (Zyloprim -) 100 mg PO DAILY [facility] Last Admin: 04/03/18 09:58 Dose: 100 mg Ascorbic Acid (Vitamin C -) 1,000 mg PO DAILY [facility] Last Admin: 04/03/18 09:57 Dose: 1,000 mg Aspirin (Asa -) 81 mg PO DAILY [facility] Last Admin: 04/03/18 09:58 Dose: 81 mg Atorvastatin Calcium (Lipitor -) 40 mg PO HS [facility] Last Admin: 04/02/18 23:00 Dose: 40 mg Budesonide/Formoterol Fumarate (Symbicort 160/4.5mcg -) 1 puff IH BID [facility] Last Admin: 04/03/18 09:58 Dose: 1 puff Bupropion HCl (Wellbutrin -) 75 mg PO DAILY [facility] Last Admin: 04/03/18 09:58 Dose: 75 mg Carvedilol (Coreg -) 6.25 mg PO BID [facility] Last Admin: 04/03/18 09:57 Dose: 6.25 mg Cholecalciferol (Vitamin D3 -) 1,000 unit PO DAILY [facility] Last Admin: 04/03/18 09:57 Dose: 1,000 unit Docusate Sodium (Colace -) 100 mg PO BID [facility] Last Admin: 04/03/18 09:57 Dose: 100 mg Ferrous Sulfate (Feosol -) 325 mg PO Q2D@1000 [facility] Last Admin: 04/02/18 10:17 Dose: 325 mg Ceftriaxone Sodium 1 gm/ (Dextrose) 50 mls @ 100 mls/hr IVPB DAILY [facility] Last Admin: 04/03/18 13:51 Dose: 100 mls/hr Milrinone Lactate/Dextrose (Milrinone 20mg/100ml Ivpb -) 20,000 mcg in 100 mls @ 12.927 mls/hr IVPB TITR [facility] Last Admin: 04/03/18 15:14 Dose: 0.5 mcg/kg/min, 12.927 mls/hr Levothyroxine Sodium (Synthroid -) 25 mcg PO DAILY@0700 [facility] Last Admin: 04/03/18 06:07 Dose: 25 mcg Multivitamins/Minerals/Vitamin C (Tab-A-Vit -) 1 tab PO DAILY [facility] Last Admin: 04/03/18 09:57 Dose: 1 tab Ranitidine HCl (Zantac -) 75 mg PO DAILY [facility] Last Admin: 04/03/18 09:57 Dose: 75 mg Torsemide (Demadex -) 20 mg PO BIDLASIX [facility] Last Admin: 04/03/18 13:50 Dose: 20 mg 77 year old gentleman with PMhx of CKD stage 4, End-stage HF on home milrinone infusion, Afib on Coumadin, CAD, COPD who presented with SOB and difficulty voiding and found to have acute HF with JOHN in setting of obstruction. #JOHN secondary to bladder outlet obstruction #CKD stage 4 #Chronic Endstage LV failure #Anemia #Pyuira r/o UTI/Cystitis Renal function improved and pt is non-oliguric s/p damian placement Urology evalulation pending unclear if pt is a candidate for flomax/proscar given advanced heart failure will discuss with cardiology continue torsemide/milrione as per cardiology Jeyson Terry DO
[2018-04-03] MEDS: ATORVASTATIN CA 40 MG TABLET (FP) PO SCH (22:24)
[2018-04-04] MEDS: LEVOTHYROXINE NA 25 MCG TABLET (FP) PO SCH (06:07)
[2018-04-04] MEDS: TORSEMIDE 20 MG TABLET (FP) PO SCH ×2 (06:07→13:00)
[2018-04-04] MEDS: MILRINONE 20MG/100ML IVPB - 20,000 MCG/100 ML ML IVPB SCH (06:28)
[2018-04-04 06:37] LABS: BASO % 0.4 % (0-2.0); EOS % 1.3 % (0-4.5); HEMATOCRIT 34.2 % (35.4-49); HEMOGLOBIN 11.4 GM/dL (11.7-16.9); LYMPH % 10.3 % (8-40); MCH 28.8 pg (25.7-33.7); MCHC 33.4 g/dl (32.0-35.9); MEAN CELL VOLUME 86.2 fl (80-96); MEAN PLT VOLUME 7.6 fl (7.5-11.1); MONO % 9.8 % (3.8-10.2); NEUT % 78.2 % (42.8-82.8); PLATELET COUNT 168 K/MM3 (134-434); RBC 3.96 M/mm3 (4.00-5.60); RDW 16.9 % (11.9-15.9); WHITE BLOOD COUNT 8.2 K/mm3 (4.0-10.0)
[2018-04-04 07:00] LABS: PROTHROMBIN TIME (PATIENT) 49.2 SEC (9.7-13.0)
[2018-04-04 07:16] LABS: INR 4.35 (0.83-1.09)
[2018-04-04 07:29] LABS: ANION GAP 5 (8-16); BLOOD UREA NITROGEN 62 mg/dL (7-18); CALCIUM 8.8 mg/dL (8.5-10.1); CHLORIDE 94 mmol/L (98-107); CO2 36 mmol/L (21-32); CREATININE 2.5 mg/dL (0.7-1.3); GLUCOSE,RANDOM 287 mg/dL (74-106); POTASSIUM 4.2 mmol/L (3.5-5.1); SODIUM 135 mmol/L (136-145)
[2018-04-04] MEDS: ALBUTEROL SO4 0.083% IH SOL 2.5 MG/3 ML VIAL.NEB. NEB PRN (08:42)
[2018-04-04] MEDS: DOCUSATE SODIUM 100 MG CAPSULE (FP) PO SCH ×2 (09:16→22:06)
[2018-04-04] MEDS: CHOLECALCIFEROL (VITAMIN D3) 1,000 UNIT TABLET (FP) PO SCH (09:16)
[2018-04-04] MEDS: CEFTRIAXONE 1 GM in DEXTROSE 5%-WATER - 50 ML IVPB SCH (09:16)
[2018-04-04] MEDS: FERROUS SO4 325 MG TABLET (FP) PO SCH (09:16)
[2018-04-04] MEDS: ASCORBIC ACID 500 MG TABLET (FP) PO SCH (09:16)
[2018-04-04] MEDS: ALLOPURINOL 100 MG TABLET (FP) PO SCH (09:16)
[2018-04-04] MEDS: CARVEDILOL 6.25 MG TABLET (FP) PO SCH ×2 (09:16→22:06)
[2018-04-04] MEDS: buPROPion HCL 75 MG TABLET PO SCH (09:16)
[2018-04-04] MEDS: ASPIRIN 81 MG CHEWABLE TABLETS PO SCH (09:16)
[2018-04-04] MEDS: BUDESONIDE/FORMETEROL FUMARATE 160/4.5 mcg INHALER IH SCH ×2 (09:17→22:06)
[2018-04-04] MEDS: RANITIDINE HCL 150 MG TABLET (FP) PO SCH (09:17)
[2018-04-04] MEDS: MULTIVITAMINS (DAILY MVI) TABLET (FP) PO SCH (09:17)
--- NOTE | 2018-04-04 09:30 | PN ---
Progress Note (short form) - Note Progress Note: cc: SOB S: no sob cp dizzy palps edema Current Medications Albuterol Sulfate (Ventolin 0.083% Nebulizer Soln -) 1 amp NEB Q6H PRN PRN Reason: SHORT OF BREATH/WHEEZING Last Admin: 04/04/18 08:42 Dose: 1 amp Allopurinol (Zyloprim -) 100 mg PO DAILY [facility] Last Admin: 04/04/18 09:16 Dose: 100 mg Ascorbic Acid (Vitamin C -) 1,000 mg PO DAILY [facility] Last Admin: 04/04/18 09:16 Dose: 1,000 mg Aspirin (Asa -) 81 mg PO DAILY [facility] Last Admin: 04/04/18 09:16 Dose: 81 mg Atorvastatin Calcium (Lipitor -) 40 mg PO HS [facility] Last Admin: 04/03/18 22:24 Dose: 40 mg Budesonide/Formoterol Fumarate (Symbicort 160/4.5mcg -) 1 puff IH BID [facility] Last Admin: 04/04/18 09:17 Dose: 1 puff Bupropion HCl (Wellbutrin -) 75 mg PO DAILY [facility] Last Admin: 04/04/18 09:16 Dose: 75 mg Carvedilol (Coreg -) 6.25 mg PO BID [facility] Last Admin: 04/04/18 09:16 Dose: 6.25 mg Cholecalciferol (Vitamin D3 -) 1,000 unit PO DAILY [facility] Last Admin: 04/04/18 09:16 Dose: 1,000 unit Docusate Sodium (Colace -) 100 mg PO BID [facility] Last Admin: 04/04/18 09:16 Dose: 100 mg Ferrous Sulfate (Feosol -) 325 mg PO Q2D@1000 [facility] Last Admin: 04/04/18 09:16 Dose: 325 mg Ceftriaxone Sodium 1 gm/ (Dextrose) 50 mls @ 100 mls/hr IVPB DAILY [facility] Last Admin: 04/04/18 09:16 Dose: 100 mls/hr Milrinone Lactate/Dextrose (Milrinone 20mg/100ml Ivpb -) 20,000 mcg in 100 mls @ 12.927 mls/hr IVPB TITR [facility] Last Admin: 04/04/18 06:28 Dose: 0.5 mcg/kg/min, 12.927 mls/hr Levothyroxine Sodium (Synthroid -) 25 mcg PO DAILY@0700 [facility] Last Admin: 04/04/18 06:07 Dose: 25 mcg Multivitamins/Minerals/Vitamin C (Tab-A-Vit -) 1 tab PO DAILY [facility] Last Admin: 04/04/18 09:17 Dose: 1 tab Ranitidine HCl (Zantac -) 75 mg PO DAILY [facility] Last Admin: 04/04/18 09:17 Dose: 75 mg Torsemide (Demadex -) 20 mg PO BIDLASIX [facility] Last Admin: 04/04/18 06:07 Dose: 20 mg Vital Signs: Vital Signs Period Temp Pulse Resp BP Sys/Orantes Pulse Ox Last 24 Hr 97.4 F-98.2 F 62-74 18-18 111-115/61-69 98 Constitutional: Yes: Well Nourished, No Distress Eyes: No: Sclera Icterus HENT: No: Nasal Congestion Neck: No: Decreased ROM Respiratory: Yes: CTA Bilaterally, Rales (R base). No: Accessory Muscle Use Gastrointestinal: Yes: Normal Bowel Sounds. No: Distention, Hepatomegaly, Palpable Mass, Tenderness Cardiovascular: Yes: Regular Rate and Rhythm JVD: Yes Carotid Bruit: No PMI: Non-Displaced Heart Sounds: Yes: S1, S2. No: Gallop Murmur: No: Systolic Murmur, Diastolic Murmur Musculoskeletal: Yes: Other (No kyphosis) Extremities: No: Cool, Cyanosis Edema: No Peripheral Pulses: 2+ Left Carotid, 2+ Right Carotid, 2+ Left Doralis Pedis, 2+ Right Dorsalis Pedis Integumentary: No: Jaundice Neurological: Yes: Alert, Oriented (x3) Psychiatric: No: Agitated Assessment/Plan Echo 05/2016: sev lve, global hk, sev dec lvef, mild rve, nl rv fcn, estefania, mild- mod mr, mv ring, tv ring, mild tr, mild pr, mild phtn, ivc mild dil CXR: interstitial and alveolar opacities kandi-hilar predominance, + cephalization, no effusions--no change vs 10/15 ECG: V-paced a/p: 76 year old man with PMH of IDDM, COPD (O2 dependant) HTN, HLD, Afib (on coumadin), CAD s/p CABG 2012, end stage CHF with ICD placement (on milrinone pump), PVD, BPH here with increased sob/leg swelling. chronic systolic CHF stage D, s/p ICD, on home milrinone infusion: - pt had cardiomems PAP monitor implant with dr harden ([facility]) and has been managed by him since last admit here. - on destination therapy home milrinone infusion, continue milrinone 0.5 mcg/kg/ min - weight stable, BNP stable, CXR unchanged, euvolemic on exam, unlikely CHF exacerbation - currently on torsemide 20 mg BID. discussed with , torsemide dose frequently changed due to renal function, was on 40 mg daily the week prior to last and last week was on 20 mg daily alternating with 20 mg BID - Cr downtrending, continue current dose of torsemide 60 mg daily - monitor daily standing weights, I/O, Cr JOHN on CKD, h/o cardiorenal syndrome: - recent outpt creat ranging 2.6-2.9 range - BUN/Cr improving after damian placement, no acute process on renal ultrasound - Nephrology and urology consulted, appreciate recs - no absolute contraindication for flomax or proscar, however with flomax would need to monitor closely for hypotension or arrhythmia COPD, 02 dependent - no temp, normal WBC, no new infiltrates on CXR afib - rate controlled on coreg - cont coumadin per INR (target 2-3) CAD s/p TX with PCI (and ? TV repair at that time): - No anginal symptoms, no signs acs - Con't home ac PLUS asa, atorvastatin, coreg PVD - con't AC, statin. HTN: -controlled on coreg
--- NOTE | 2018-04-04 14:15 | PN ---
Progress Note, Physician Chief Complaint: Mr Perez says he is feeling well today. Denies cp, sob, n/v. States he does not want to be here long. - Current Medication List Current Medications: Active Medications Albuterol Sulfate (Ventolin 0.083% Nebulizer Soln -) 1 amp NEB Q6H PRN PRN Reason: SHORT OF BREATH/WHEEZING Last Admin: 04/04/18 08:42 Dose: 1 amp Allopurinol (Zyloprim -) 100 mg PO DAILY [facility] Last Admin: 04/04/18 09:16 Dose: 100 mg Ascorbic Acid (Vitamin C -) 1,000 mg PO DAILY [facility] Last Admin: 04/04/18 09:16 Dose: 1,000 mg Aspirin (Asa -) 81 mg PO DAILY [facility] Last Admin: 04/04/18 09:16 Dose: 81 mg Atorvastatin Calcium (Lipitor -) 40 mg PO HS [facility] Last Admin: 04/03/18 22:24 Dose: 40 mg Budesonide/Formoterol Fumarate (Symbicort 160/4.5mcg -) 1 puff IH BID [facility] Last Admin: 04/04/18 09:17 Dose: 1 puff Bupropion HCl (Wellbutrin -) 75 mg PO DAILY [facility] Last Admin: 04/04/18 09:16 Dose: 75 mg Carvedilol (Coreg -) 6.25 mg PO BID [facility] Last Admin: 04/04/18 09:16 Dose: 6.25 mg Cholecalciferol (Vitamin D3 -) 1,000 unit PO DAILY [facility] Last Admin: 04/04/18 09:16 Dose: 1,000 unit Docusate Sodium (Colace -) 100 mg PO BID [facility] Last Admin: 04/04/18 09:16 Dose: 100 mg Ferrous Sulfate (Feosol -) 325 mg PO Q2D@1000 [facility] Last Admin: 04/04/18 09:16 Dose: 325 mg Ceftriaxone Sodium 1 gm/ (Dextrose) 50 mls @ 100 mls/hr IVPB DAILY [facility] Last Admin: 04/04/18 09:16 Dose: 100 mls/hr Milrinone Lactate/Dextrose (Milrinone 20mg/100ml Ivpb -) 20,000 mcg in 100 mls @ 12.927 mls/hr IVPB TITR [facility] Last Admin: 04/04/18 06:28 Dose: 0.5 mcg/kg/min, 12.927 mls/hr Levothyroxine Sodium (Synthroid -) 25 mcg PO DAILY@0700 [facility] Last Admin: 04/04/18 06:07 Dose: 25 mcg Multivitamins/Minerals/Vitamin C (Tab-A-Vit -) 1 tab PO DAILY [facility] Last Admin: 04/04/18 09:17 Dose: 1 tab Ranitidine HCl (Zantac -) 75 mg PO DAILY [facility] Last Admin: 04/04/18 09:17 Dose: 75 mg Torsemide (Demadex -) 20 mg PO BIDLASIX [facility] Last Admin: 04/04/18 13:00 Dose: 20 mg - Objective Vital Signs: Vital Signs Temperature 36.7 C 04/04/18 10:17 Pulse Rate 80 04/04/18 10:17 Respiratory Rate 18 04/04/18 10:17 Blood Pressure 121/67 04/04/18 10:17 O2 Sat by Pulse Oximetry (%) 98 04/04/18 09:00 Constitutional: Yes: Well Nourished, No Distress, Calm Cardiovascular: Yes: Regular Rate and Rhythm. No: Gallop, Murmur, Rub Respiratory: Yes: Regular, Rales (bibasilar). No: CTA Bilaterally, Rhonchi, Wheezes Gastrointestinal: Yes: Normal Bowel Sounds, Soft. No: Distention, Tenderness Extremities: Yes: WNL Edema: No Labs: CBC, BMP 04/04/18 05:30 04/04/18 05:30 INR, PTT INR 4.35 (0.83-1.09) H* 04/04/18 05:30 Problem List - Problems (1) Urinary tract infection Assessment/Plan: -patient with strep viridans UTI -continue rocephin -change to oral regimen when stable for discharge Code(s): N39.0 - URINARY TRACT INFECTION, SITE NOT SPECIFIED Qualifiers: Urinary tract infection type: acute cystitis Hematuria presence: without hematuria Qualified Code(s): N30.00 - Acute cystitis without hematuria (2) Obstructive uropathy Assessment/Plan: -damian placed and draining urine -exacerbated by UTI -urology consulted and awaiting recommendations Code(s): N13.9 - OBSTRUCTIVE AND REFLUX UROPATHY, UNSPECIFIED (3) CHF (congestive heart failure) Assessment/Plan: -case d/w cardiology -continue milrinone gtt and torsemide Code(s): I50.9 - HEART FAILURE, UNSPECIFIED Qualifiers: Qualified Code(s): I50.32 - Chronic diastolic (congestive) heart failure (4) Acute kidney injury Assessment/Plan: -improving with damain placement -appreciate nephrology assistance -monitor Code(s): N17.9 - ACUTE KIDNEY FAILURE, UNSPECIFIED (5) CKD (chronic kidney disease) Assessment/Plan: -awaiting normalization Code(s): N18.9 - CHRONIC KIDNEY DISEASE, UNSPECIFIED Qualifiers: Chronic kidney disease stage: stage 3 (moderate) Qualified Code(s): N18.3 - Chronic kidney disease, stage 3 (moderate) (6) Atrial fibrillation Assessment/Plan: -rate controlled -hold coumadin secondary to elevated INR Code(s): I48.91 - UNSPECIFIED ATRIAL FIBRILLATION Qualifiers: Atrial fibrillation type: chronic Qualified Code(s): I48.2 - Chronic atrial fibrillation (7) CAD (coronary artery disease) Assessment/Plan: -continue medical management Code(s): I25.10 - ATHSCL HEART DISEASE OF [place] CORONARY ARTERY W/O ANG PCTRS (8) Diabetes Assessment/Plan: -place on diabetic diet Code(s): E11.9 - TYPE 2 DIABETES MELLITUS WITHOUT COMPLICATIONS Qualifiers: Diabetes mellitus type: type 2 Diabetes mellitus complication status: with kidney complications Diabetes mellitus complication detail: with chronic kidney disease Chronic kidney disease stage: stage 4 (severe)
--- NOTE | 2018-04-04 17:36 | CON.GU ---
Consult Consult Specialty:: Referred by:: medicine Reason for Consultation:: urinary retention. - History of Present Illness Chief Complaint: urinary retention. History of Present Illness: 77 year old male with a history of BPH and bladder outlet obstruction. He came in JOHN and urinary retention. Damian cath was placed with initally large output and has had some gross hematuria. THe hematuria has resolved and his creatinine is trending down. - History Source History Provided By: Medical Record - Past Medical History Cardio/Vascular: Yes: AFIB, CAD, CHF, HTN, Hyperlipdemia, RI, Pulmonary Hypertension, Other (AICD placed) Pulmonary: Yes: COPD, O2 Dependent Renal/: Yes: Renal Inusuff, BPH Endocrine: Yes: Diabetes Mellitus - Past Surgical History Past Surgical History: Yes: AICD, CABG, Hernia Repair - Alcohol/Substance Use Hx Alcohol Use: No History of Substance Use: reports: None - Smoking History Smoking history: Former smoker Have you smoked in the past 12 months: No Aproximately how many cigarettes per day: 40 If you are a former smoker, when did you quit?: 2010 - Social History Usual Living Arrangement: With Spouse ADL: Independent History of Recent Travel: No Home Medications - Allergies Allergies/Adverse Reactions: Allergies Allergy/AdvReac Type Severity Reaction Status Date / Time No Known Drug Allergies Allergy Verified 09/30/17 10:37 shellfish derived Allergy Verified 09/30/17 10:37 - Home Medications Home Medications: Ambulatory Orders Allopurinol [Zyloprim -] 100 mg PO DAILY 09/10/15 Atorvastatin Ca [Lipitor] 40 mg PO HS 09/10/15 Carvedilol 6.25 mg PO BID 09/10/15 Docusate Sodium [Colace -] 100 mg PO BID 09/10/15 Milrinone Lactate/D5w [Milrinone 0.2 mg/ml in D5w] 0.5 mg IV DAILY 09/10/15 Ranitidine [Zantac -] 75 mg PO DAILY 09/10/15 Albuterol 0.083% Nebulizer [place] [Ventolin 0.083% Nebulizer Soln -] 1 amp NEB Q6H PRN #120 amp 09/14/15 Ferrous Sulfate [Feosol] 325 mg PO Q48H ud 04/23/16 Ascorbic Acid [Vitamin C -] 1,000 mg PO DAILY 11/24/16 Cholecalciferol (Vitamin D3) [Vitamin D -] 1,000 unit PO DAILY 11/24/16 Multivitamin [Poly-Vitamin] 1 each PO DAILY 11/24/16 Budesonide/Formeterol Fumarate [SYMBICORT 160/4.5mcg -] 1 inh PO BID 02/17/17 Torsemide [Demadex -] 20 mg PO BID 02/17/17 Aspirin 81 mg PO DAILY 09/30/17 Cholecalciferol (Vitamin D3) [Vitamin D -] 1,000 unit PO DAILY 09/30/17 Levothyroxine [Synthroid -] 25 mcg PO DAILY 09/30/17 Warfarin Na [Coumadin -] 4 mg PO ASDIR 09/30/17 Bupropion HCl [Wellbutrin -] 75 mg PO DAILY #0 tablet 10/02/17 Aspirin Coated [Ecotrin -] 81 mg PO DAILY tablet.ec 10/05/17 Family Disease History - Family Disease History Family Disease History: Diabetes: Father, Heart Disease: Father Review of Systems - Review of Systems Genitourinary: reports: Frequency Physical Exam- Vital Signs: Vital Signs Temperature 98.0 F 04/04/18 10:17 Pulse Rate 80 04/04/18 10:17 Respiratory Rate 18 04/04/18 10:17 Blood Pressure 121/67 04/04/18 10:17 O2 Sat by Pulse Oximetry (%) 98 04/04/18 09:00 Renal/: Yes: Damian Present. No: Bladder Distention, CVA Tenderness - Left, CVA Tenderness - Right, Hematuria Labs: CBC, BMP 04/04/18 05:30 04/04/18 05:30 Problem List - Problems (1) Benign localized hyperplasia of prostate with urinary retention Assessment/Plan: BPH long standing with bladder diverticulum and retention with renal failure Keep damian until creatinine nadirs. flomax and proscar and can atttempt trial of void in two weeks. Code(s): N40.1 - BENIGN PROSTATIC HYPERPLASIA WITH LOWER URINARY TRACT SYMP
[2018-04-04] MEDS ORDERED: ACETAMINOPHEN 325 MG TABLET (FP) PO ONE (20:30)
[2018-04-04] MEDS: ATORVASTATIN CA 40 MG TABLET (FP) PO SCH (22:06)
[2018-04-05] MEDS: MILRINONE 20MG/100ML IVPB - 20,000 MCG/100 ML ML IVPB SCH ×3 (00:47→18:36)
[2018-04-05 06:32] LABS: BASO % 0.4 % (0-2.0); EOS % 1.1 % (0-4.5); HEMATOCRIT 35.4 % (35.4-49); HEMOGLOBIN 11.9 GM/dL (11.7-16.9); LYMPH % 13.8 % (8-40); MCH 28.9 pg (25.7-33.7); MCHC 33.5 g/dl (32.0-35.9); MEAN CELL VOLUME 86.3 fl (80-96); MEAN PLT VOLUME 8.5 fl (7.5-11.1); MONO % 11.9 % (3.8-10.2); NEUT % 72.8 % (42.8-82.8); PLATELET COUNT 189 K/MM3 (134-434); RDW 16.4 % (11.9-15.9)
[2018-04-05] MEDS: LEVOTHYROXINE NA 25 MCG TABLET (FP) PO SCH (06:38)
[2018-04-05] MEDS: TORSEMIDE 20 MG TABLET (FP) PO SCH ×2 (06:38→13:23)
[2018-04-05 06:49] LABS: INR 3.12 (0.83-1.09)
[2018-04-05 06:57] LABS: ANION GAP 10 (8-16); BLOOD UREA NITROGEN 57 mg/dL (7-18); CALCIUM 8.7 mg/dL (8.5-10.1); CHLORIDE 91 mmol/L (98-107); CO2 34 mmol/L (21-32); CREATININE 2.4 mg/dL (0.7-1.3); MAGNESIUM 2.4 mg/dL (1.8-2.4); PHOSPHOROUS 2.5 mg/dL (2.5-4.9); POTASSIUM 3.9 mmol/L (3.5-5.1); SODIUM 135 mmol/L (136-145)
[2018-04-05 07:00] LABS: PROTHROMBIN TIME (PATIENT) 35.3 SEC (9.7-13.0)
[2018-04-05 07:12] LABS: GLUCOSE,RANDOM 401 mg/dL (74-106)
[2018-04-05] MEDS ORDERED: INSULIN (NOVOLOG) ASPART 100 UNITS/ML 10ML VIAL SQ ONE (07:17)
[2018-04-05] MEDS ORDERED: cefTRIAXone SODIUM 1 GM VIAL ONE (09:07)
[2018-04-05] MEDS ORDERED: DEXTROSE 5%-WATER - 50 ML IVPB ONE (09:08)
[2018-04-05] MEDS: TAMSULOSIN HCL 0.4 MG CAP.ER.24H (FP) PO SCH (09:12)
[2018-04-05] MEDS: CARVEDILOL 6.25 MG TABLET (FP) PO SCH ×2 (09:13→21:25)
[2018-04-05] MEDS: ASCORBIC ACID 500 MG TABLET (FP) PO SCH (09:13)
[2018-04-05] MEDS: ASPIRIN 81 MG CHEWABLE TABLETS PO SCH (09:13)
[2018-04-05] MEDS: FINASTERIDE 5 MG TABLET (FP) PO SCH (09:14)
[2018-04-05] MEDS: buPROPion HCL 75 MG TABLET PO SCH (09:14)
[2018-04-05] MEDS: DOCUSATE SODIUM 100 MG CAPSULE (FP) PO SCH ×2 (09:14→21:25)
[2018-04-05] MEDS: MULTIVITAMINS (DAILY MVI) TABLET (FP) PO SCH (09:14)
[2018-04-05] MEDS: RANITIDINE HCL 150 MG TABLET (FP) PO SCH (09:14)
[2018-04-05] MEDS: CHOLECALCIFEROL (VITAMIN D3) 1,000 UNIT TABLET (FP) PO SCH (09:16)
[2018-04-05] MEDS: ALLOPURINOL 100 MG TABLET (FP) PO SCH (09:16)
[2018-04-05] MEDS: CEFTRIAXONE 1 GM in DEXTROSE 5%-WATER - 50 ML IVPB SCH (09:17)
[2018-04-05] MEDS: BUDESONIDE/FORMETEROL FUMARATE 160/4.5 mcg INHALER IH SCH ×2 (09:17→21:26)
[2018-04-05] MEDS ORDERED: INSULIN (LEVEMIR) 100 UNITS/ML UNITS SQ ONE (11:45)
--- NOTE | 2018-04-05 12:06 | PN ---
Progress Note (short form) - Note Progress Note: cc: SOB S: no sob cp dizzy palps edema Current Medications Generic Name Dose Route Start Last Admin Trade Name Freq PRN Reason Stop Dose Admin Albuterol Sulfate 1 amp 04/02/18 01:12 04/04/18 08:42 Ventolin 0.083% Nebulizer Soln - NEB 1 amp Q6H PRN Administration SHORT OF BREATH/WHEEZING Allopurinol 100 mg 04/02/18 10:00 04/05/18 09:16 Zyloprim - PO 100 mg DAILY [facility] Administration Ascorbic Acid 1,000 mg 04/02/18 10:00 04/05/18 09:13 Vitamin C - PO 1,000 mg DAILY [facility] Administration Aspirin 81 mg 04/02/18 10:00 04/05/18 09:13 Asa - PO 81 mg DAILY [facility] Administration Atorvastatin Calcium 40 mg 04/02/18 02:15 04/04/18 22:06 Lipitor - PO 40 mg HS [facility] Administration Budesonide/Formoterol Fumarate 1 puff 04/02/18 02:15 04/05/18 09:17 Symbicort 160/4.5mcg - IH 1 puff BID [facility] Administration Bupropion HCl 75 mg 04/02/18 10:00 04/05/18 09:14 Wellbutrin - PO 75 mg DAILY [facility] Administration Carvedilol 6.25 mg 04/02/18 02:15 04/05/18 09:13 Coreg - PO 6.25 mg BID [facility] Administration Cholecalciferol 1,000 unit 04/02/18 10:00 04/05/18 09:16 Vitamin D3 - PO 1,000 unit DAILY [facility] Administration Docusate Sodium 100 mg 04/02/18 02:15 04/05/18 09:14 Colace - PO 100 mg BID [facility] Administration Ferrous Sulfate 325 mg 04/02/18 10:00 04/04/18 09:16 Feosol - PO 325 mg Q2D@1000 [facility] Administration Finasteride 5 mg 04/05/18 10:00 04/05/18 09:14 Proscar - PO 5 mg DAILY [facility] Administration Ceftriaxone Sodium 1 gm/ 50 mls @ 100 mls/hr 04/02/18 10:45 04/05/18 09:17 Dextrose IVPB 100 mls/hr DAILY [facility] Administration Milrinone Lactate/Dextrose 20,000 mcg in 100 mls @ 12.927 mls/hr 04/03/18 15: 00 04/05/18 09:18 Milrinone 20mg/100ml Ivpb - IVPB 0.5 mcg/kg/min TITR [facility] 12.927 mls/hr Administration 0.5 MCG/KG/MIN Insulin Detemir 10 units 04/05/18 22:00 Levemir Vial SQ HS [facility] Levothyroxine Sodium 25 mcg 04/02/18 07:00 04/05/18 06:38 Synthroid - PO 25 mcg DAILY@0700 [facility] Administration Multivitamins/Minerals/Vitamin C 1 tab 04/02/18 10:00 04/05/18 09:14 Tab-A-Vit - PO 1 tab DAILY [facility] Administration Ranitidine HCl 75 mg 04/02/18 10:00 04/05/18 09:14 Zantac - PO 75 mg DAILY [facility] Administration Tamsulosin HCl 0.4 mg 04/05/18 08:30 04/05/18 09:12 Flomax - PO 0.4 mg DAILY@0830 [facility] Administration Torsemide 20 mg 04/02/18 15:15 04/05/18 06:38 Demadex - PO 20 mg BIDLASIX [facility] Administration Vital Signs: Vital Signs Period Temp Pulse Resp BP Sys/Orantes Pulse Ox Last 24 Hr 98.0 F-98.7 F 75-80 18-18 108-127/60-76 98 Constitutional: Yes: Well Nourished, No Distress Eyes: No: Sclera Icterus HENT: No: Nasal Congestion Respiratory: Yes: CTA Bilaterally, Rales (R base). No: Accessory Muscle Use Gastrointestinal: Yes: Normal Bowel Sounds. No: Distention, Hepatomegaly, Palpable Mass, Tenderness Cardiovascular: Yes: Regular Rate and Rhythm JVD: Yes Heart Sounds: Yes: S1, S2. 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 chronic systolic CHF stage D, s/p ICD, on home milrinone infusion: - pt had cardiomems PAP monitor implant with dr harden ([facility]) and has been managed by him since last admit here. - on destination therapy home milrinone infusion, continue milrinone 0.5 mcg/kg/ min - weight stable, BNP stable, CXR unchanged, euvolemic on exam, unlikely CHF exacerbation - currently on torsemide 20 mg BID. discussed with , torsemide dose frequently changed due to renal function, was on 40 mg daily the week prior to last and last week was on 20 mg daily alternating with 20 mg BID - Cr downtrending, continue current dose of torsemide 60 mg daily JOHN on CKD, h/o cardiorenal syndrome: - recent outpt creat ranging 2.6-2.9 range - BUN/Cr improving after damian placement, no acute process on renal ultrasound - Nephrology and urology consulted, appreciate recs - no absolute contraindication for flomax or proscar, however with flomax would need to monitor closely for hypotension or arrhythmia COPD, 02 dependent - no temp, normal WBC, no new infiltrates on CXR afib - rate controlled on coreg - cont coumadin per INR (target 2-3) CAD s/p WA with PCI (and ? TV repair at that time): - No anginal symptoms, no signs acs - Con't home ac PLUS asa, atorvastatin, coreg PVD - con't AC, statin. HTN: -controlled on coreg
--- NOTE | 2018-04-05 14:46 | PN ---
Progress Note (short form) - Note Progress Note: Renal follow up for JOHN on CKD Pt seen and examined at the bedside awake and alert no acute complaints making urine via damian Vital Signs Temperature 98.5 F 04/05/18 06:00 Pulse Rate 75 04/05/18 06:00 Respiratory Rate 18 04/05/18 06:00 Blood Pressure 127/67 04/05/18 06:00 O2 Sat by Pulse Oximetry (%) 98 04/04/18 21:00 Intake & Output 04/02/18 04/03/18 04/04/18 04/05/18 23:59 23:59 23:59 23:59 Intake Total 50 501.6 894.8 674.8 Output Total 3900 4500 Balance 50 -3398.4 -3605.2 674.8 Weight 86.183 kg 85.899 kg 85.729 kg NAD RRR, No M/R Dec BS at lung bases, no rales soft NT/ND + edema damian in place CBC, BMP 04/05/18 05:30 04/05/18 05:30 Current Medications Albuterol Sulfate (Ventolin 0.083% Nebulizer Soln -) 1 amp NEB Q6H PRN PRN Reason: SHORT OF BREATH/WHEEZING Last Admin: 04/04/18 08:42 Dose: 1 amp Allopurinol (Zyloprim -) 100 mg PO DAILY [facility] Last Admin: 04/05/18 09:16 Dose: 100 mg Ascorbic Acid (Vitamin C -) 1,000 mg PO DAILY [facility] Last Admin: 04/05/18 09:13 Dose: 1,000 mg Aspirin (Asa -) 81 mg PO DAILY [facility] Last Admin: 04/05/18 09:13 Dose: 81 mg Atorvastatin Calcium (Lipitor -) 40 mg PO HS [facility] Last Admin: 04/04/18 22:06 Dose: 40 mg Budesonide/Formoterol Fumarate (Symbicort 160/4.5mcg -) 1 puff IH BID [facility] Last Admin: 04/05/18 09:17 Dose: 1 puff Bupropion HCl (Wellbutrin -) 75 mg PO DAILY [facility] Last Admin: 04/05/18 09:14 Dose: 75 mg Carvedilol (Coreg -) 6.25 mg PO BID [facility] Last Admin: 04/05/18 09:13 Dose: 6.25 mg Cholecalciferol (Vitamin D3 -) 1,000 unit PO DAILY [facility] Last Admin: 04/05/18 09:16 Dose: 1,000 unit Docusate Sodium (Colace -) 100 mg PO BID [facility] Last Admin: 04/05/18 09:14 Dose: 100 mg Ferrous Sulfate (Feosol -) 325 mg PO Q2D@1000 [facility] Last Admin: 04/04/18 09:16 Dose: 325 mg Finasteride (Proscar -) 5 mg PO DAILY [facility] Last Admin: 04/05/18 09:14 Dose: 5 mg Ceftriaxone Sodium 1 gm/ (Dextrose) 50 mls @ 100 mls/hr IVPB DAILY [facility] Last Admin: 04/05/18 09:17 Dose: 100 mls/hr Milrinone Lactate/Dextrose (Milrinone 20mg/100ml Ivpb -) 20,000 mcg in 100 mls @ 12.927 mls/hr IVPB TITR [facility] Last Admin: 04/05/18 09:18 Dose: 0.5 mcg/kg/min, 12.927 mls/hr Insulin Detemir (Levemir Vial) 10 units SQ [facility] Levothyroxine Sodium (Synthroid -) 25 mcg PO DAILY@0700 [facility] Last Admin: 04/05/18 06:38 Dose: 25 mcg Multivitamins/Minerals/Vitamin C (Tab-A-Vit -) 1 tab PO DAILY [facility] Last Admin: 04/05/18 09:14 Dose: 1 tab Ranitidine HCl (Zantac -) 75 mg PO DAILY [facility] Last Admin: 04/05/18 09:14 Dose: 75 mg Tamsulosin HCl (Flomax -) 0.4 mg PO DAILY@0830 [facility] Last Admin: 04/05/18 09:12 Dose: 0.4 mg Torsemide (Demadex -) 20 mg PO BIDLASIX [facility] Last Admin: 04/05/18 13:23 Dose: 20 mg 77 year old gentleman with PMhx of CKD stage 4, End-stage HF on home milrinone infusion, Afib on Coumadin, CAD, COPD who presented with SOB and difficulty voiding and found to have acute HF with JOHN in setting of obstruction. #JOHN secondary to bladder outlet obstruction #CKD stage 4 #Chronic Endstage LV failure #Anemia Renal function stable at this time continue torsemide BID and trend daily weights started on proscar/flomax maintain Damian until outpatient follow up urology follow up as outpatient Jeyson Terry DO
--- NOTE | 2018-04-05 15:11 | PN ---
Progress Note, Physician Chief Complaint: Mr Perez says he is feeling well today. Denies cp, sob, n/v. - Current Medication List Current Medications: Active Medications Albuterol Sulfate (Ventolin 0.083% Nebulizer Soln -) 1 amp NEB Q6H PRN PRN Reason: SHORT OF BREATH/WHEEZING Last Admin: 04/04/18 08:42 Dose: 1 amp Allopurinol (Zyloprim -) 100 mg PO DAILY [facility] Last Admin: 04/05/18 09:16 Dose: 100 mg Ascorbic Acid (Vitamin C -) 1,000 mg PO DAILY [facility] Last Admin: 04/05/18 09:13 Dose: 1,000 mg Aspirin (Asa -) 81 mg PO DAILY [facility] Last Admin: 04/05/18 09:13 Dose: 81 mg Atorvastatin Calcium (Lipitor -) 40 mg PO HS [facility] Last Admin: 04/04/18 22:06 Dose: 40 mg Budesonide/Formoterol Fumarate (Symbicort 160/4.5mcg -) 1 puff IH BID [facility] Last Admin: 04/05/18 09:17 Dose: 1 puff Bupropion HCl (Wellbutrin -) 75 mg PO DAILY [facility] Last Admin: 04/05/18 09:14 Dose: 75 mg Carvedilol (Coreg -) 6.25 mg PO BID [facility] Last Admin: 04/05/18 09:13 Dose: 6.25 mg Cephalexin HCl (Keflex -) 500 mg PO BID [facility] Stop: 04/16/18 09:59 Cholecalciferol (Vitamin D3 -) 1,000 unit PO DAILY [facility] Last Admin: 04/05/18 09:16 Dose: 1,000 unit Docusate Sodium (Colace -) 100 mg PO BID [facility] Last Admin: 04/05/18 09:14 Dose: 100 mg Ferrous Sulfate (Feosol -) 325 mg PO Q2D@1000 [facility] Last Admin: 04/04/18 09:16 Dose: 325 mg Finasteride (Proscar -) 5 mg PO DAILY [facility] Last Admin: 04/05/18 09:14 Dose: 5 mg Milrinone Lactate/Dextrose (Milrinone 20mg/100ml Ivpb -) 20,000 mcg in 100 mls @ 12.927 mls/hr IVPB TITR [facility] Last Admin: 04/05/18 09:18 Dose: 0.5 mcg/kg/min, 12.927 mls/hr Insulin Aspart (Novolog Vial Sliding Scale -) 1 vial SQ [facility]; Protocol Insulin Detemir (Levemir Vial) 10 units SQ [facility] Levothyroxine Sodium (Synthroid -) 25 mcg PO DAILY@0700 [facility] Last Admin: 04/05/18 06:38 Dose: 25 mcg Multivitamins/Minerals/Vitamin C (Tab-A-Vit -) 1 tab PO DAILY [facility] Last Admin: 04/05/18 09:14 Dose: 1 tab Ranitidine HCl (Zantac -) 75 mg PO DAILY [facility] Last Admin: 04/05/18 09:14 Dose: 75 mg Tamsulosin HCl (Flomax -) 0.4 mg PO DAILY@0830 [facility] Last Admin: 04/05/18 09:12 Dose: 0.4 mg Torsemide (Demadex -) 20 mg PO BIDLASIX [facility] Last Admin: 04/05/18 13:23 Dose: 20 mg - Objective Vital Signs: Vital Signs Temperature 36.9 C 04/05/18 06:00 Pulse Rate 75 04/05/18 06:00 Respiratory Rate 18 04/05/18 06:00 Blood Pressure 127/67 04/05/18 06:00 O2 Sat by Pulse Oximetry (%) 98 04/04/18 21:00 Constitutional: Yes: Well Nourished, No Distress, Calm Cardiovascular: Yes: Pulse Irregular. No: Tachycardia, Gallop, Murmur, Rub Respiratory: Yes: Regular, CTA Bilaterally. No: Rales, Rhonchi, Wheezes Gastrointestinal: Yes: Normal Bowel Sounds, Soft. No: Distention, Tenderness Extremities: Yes: WNL Edema: No Labs: CBC, BMP 04/05/18 05:30 04/05/18 05:30 INR, PTT INR 3.12 (0.83-1.09) H* 04/05/18 05:30 Problem List - Problems (1) Urinary tract infection Code(s): N39.0 - URINARY TRACT INFECTION, SITE NOT SPECIFIED Qualifiers: Urinary tract infection type: acute cystitis Hematuria presence: without hematuria Qualified Code(s): N30.00 - Acute cystitis without hematuria (2) Obstructive uropathy Code(s): N13.9 - OBSTRUCTIVE AND REFLUX UROPATHY, UNSPECIFIED (3) Acute kidney injury Code(s): N17.9 - ACUTE KIDNEY FAILURE, UNSPECIFIED (4) CKD (chronic kidney disease) Code(s): N18.9 - CHRONIC KIDNEY DISEASE, UNSPECIFIED Qualifiers: Chronic kidney disease stage: stage 3 (moderate) Qualified Code(s): N18.3 - Chronic kidney disease, stage 3 (moderate) (5) Atrial fibrillation Code(s): I48.91 - UNSPECIFIED ATRIAL FIBRILLATION Qualifiers: Atrial fibrillation type: chronic Qualified Code(s): I48.2 - Chronic atrial fibrillation (6) CAD (coronary artery disease) Code(s): I25.10 - ATHSCL HEART DISEASE OF [place] CORONARY ARTERY W/O ANG PCTRS (7) Diabetes Code(s): E11.9 - TYPE 2 DIABETES MELLITUS WITHOUT COMPLICATIONS Qualifiers: Diabetes mellitus type: type 2 Diabetes mellitus complication status: with kidney complications Diabetes mellitus complication detail: with chronic kidney disease Chronic kidney disease stage: stage 4 (severe) (8) CHF (congestive heart failure) Code(s): I50.9 - HEART FAILURE, UNSPECIFIED Qualifiers: Heart failure type: systolic Heart failure chronicity: chronic Qualified Code(s): I50.22 - Chronic systolic (congestive) heart failure Assessment/Plan (1) Urinary tract infection Assessment/Plan: -will change to keflex tomorrow Code(s): N39.0 - URINARY TRACT INFECTION, SITE NOT SPECIFIED Qualifiers: Urinary tract infection type: acute cystitis Hematuria presence: without hematuria Qualified Code(s): N30.00 - Acute cystitis without hematuria (2) Obstructive uropathy Assessment/Plan: -appreciate urology assistance -damian to remain in place for 2 weeks Code(s): N13.9 - OBSTRUCTIVE AND REFLUX UROPATHY, UNSPECIFIED (3) CHF (congestive heart failure) Assessment/Plan: -case d/w cardiology -continue milrinone gtt and torsemide Code(s): I50.9 - HEART FAILURE, UNSPECIFIED Qualifiers: Qualified Code(s): - Chronic systolic CHF (4) Acute kidney injury Assessment/Plan: -damian in place -approaching baseline -recheck tomorrow Code(s): N17.9 - ACUTE KIDNEY FAILURE, UNSPECIFIED (5) CKD (chronic kidney disease) Assessment/Plan: -awaiting normalization Code(s): N18.9 - CHRONIC KIDNEY DISEASE, UNSPECIFIED Qualifiers: Chronic kidney disease stage: stage 3 (moderate) Qualified Code(s): N18.3 - Chronic kidney disease, stage 3 (moderate) (6) Atrial fibrillation Assessment/Plan: -rate controlled -hold coumadin secondary to elevated INR -recheck tomorrow Code(s): I48.91 - UNSPECIFIED ATRIAL FIBRILLATION Qualifiers: Atrial fibrillation type: chronic Qualified Code(s): I48.2 - Chronic atrial fibrillation (7) CAD (coronary artery disease) Assessment/Plan: -continue medical management Code(s): I25.10 - ATHSCL HEART DISEASE OF [place] CORONARY ARTERY W/O ANG PCTRS (8) Diabetes Assessment/Plan: -elevated -start levemir -diabetic diet -FSBS and SSI -will stop rocephin as in D5W Code(s): E11.9 - TYPE 2 DIABETES MELLITUS WITHOUT COMPLICATIONS Qualifiers: Diabetes mellitus type: type 2 Diabetes mellitus complication status: with kidney complications Diabetes mellitus complication detail: with chronic kidney disease Chronic kidney disease stage: stage 4 (severe)
[2018-04-05] MEDS: INSULIN SLIDING SCALE (NOVOLOG) 1 VIAL SQ SCH ×2 (17:12→21:25)
[2018-04-05] MEDS: ALBUTEROL SO4 0.083% IH SOL 2.5 MG/3 ML VIAL.NEB. NEB PRN (21:00)
[2018-04-05] MEDS: ATORVASTATIN CA 40 MG TABLET (FP) PO SCH (21:25)
[2018-04-05] MEDS ORDERED: INSULIN (LEVEMIR) 100 UNITS/ML UNITS SQ SCH (22:00)
[2018-04-06] MEDS: MILRINONE 20MG/100ML IVPB - 20,000 MCG/100 ML ML IVPB SCH (01:47)
[2018-04-06 01:59] VITALS: PULSE 75
[2018-04-06] MEDS: TORSEMIDE 20 MG TABLET (FP) PO SCH ×2 (06:15→13:37)
[2018-04-06] MEDS: LEVOTHYROXINE NA 25 MCG TABLET (FP) PO SCH (06:15)
[2018-04-06] MEDS: INSULIN SLIDING SCALE (NOVOLOG) 1 VIAL SQ SCH ×2 (06:15→11:39)
[2018-04-06 06:33] LABS: BASO % 0.3 % (0-2.0); EOS % 1.3 % (0-4.5); HEMATOCRIT 33.1 % (35.4-49); HEMOGLOBIN 11.3 GM/dL (11.7-16.9); LYMPH % 14.3 % (8-40); MCHC 34.2 g/dl (32.0-35.9); MEAN CELL VOLUME 84.8 fl (80-96); MEAN PLT VOLUME 8.5 fl (7.5-11.1); MONO % 9.7 % (3.8-10.2); NEUT % 74.4 % (42.8-82.8); PLATELET COUNT 192 K/MM3 (134-434); RBC 3.91 M/mm3 (4.00-5.60); RDW 16.1 % (11.9-15.9)
[2018-04-06 07:06] LABS: ANION GAP 9 (8-16); BLOOD UREA NITROGEN 65 mg/dL (7-18); CALCIUM 8.7 mg/dL (8.5-10.1); CHLORIDE 93 mmol/L (98-107); CO2 33 mmol/L (21-32); GLUCOSE,RANDOM 182 mg/dL (74-106); INR 2.32 (0.83-1.09); MAGNESIUM 2.5 mg/dL (1.8-2.4); PROTHROMBIN TIME (PATIENT) 26.2 SEC (9.7-13.0); SODIUM 135 mmol/L (136-145)
[2018-04-06 07:08] LABS: CREATININE 2.4 mg/dL (0.7-1.3); PHOSPHOROUS 2.6 mg/dL (2.5-4.9)
[2018-04-06] MEDS: ALBUTEROL SO4 0.083% IH SOL 2.5 MG/3 ML VIAL.NEB. NEB PRN (07:48)
[2018-04-06] MEDS: TAMSULOSIN HCL 0.4 MG CAP.ER.24H (FP) PO SCH (08:02)
[2018-04-06 09:27] VITALS: BP 119/63; TEMP 98.1
[2018-04-06] MEDS: DOCUSATE SODIUM 100 MG CAPSULE (FP) PO SCH (09:27)
[2018-04-06] MEDS: FINASTERIDE 5 MG TABLET (FP) PO SCH (09:27)
[2018-04-06] MEDS: ALLOPURINOL 100 MG TABLET (FP) PO SCH (09:28)
[2018-04-06] MEDS: FERROUS SO4 325 MG TABLET (FP) PO SCH (09:28)
[2018-04-06] MEDS: RANITIDINE HCL 150 MG TABLET (FP) PO SCH (09:28)
[2018-04-06] MEDS: CARVEDILOL 6.25 MG TABLET (FP) PO SCH (09:28)
[2018-04-06] MEDS: ASPIRIN 81 MG CHEWABLE TABLETS PO SCH (09:28)
[2018-04-06] MEDS: CHOLECALCIFEROL (VITAMIN D3) 1,000 UNIT TABLET (FP) PO SCH (09:28)
[2018-04-06] MEDS: MULTIVITAMINS (DAILY MVI) TABLET (FP) PO SCH (09:29)
[2018-04-06] MEDS: buPROPion HCL 75 MG TABLET PO SCH (09:29)
[2018-04-06] MEDS: ASCORBIC ACID 500 MG TABLET (FP) PO SCH (09:29)
[2018-04-06] MEDS: BUDESONIDE/FORMETEROL FUMARATE 160/4.5 mcg INHALER IH SCH (09:29)
[2018-04-06] MEDS ORDERED: CEPHALEXIN MONOHYDRATE 500 MG CAPSULE (UD) PO SCH (10:00)
--- NOTE | 2018-04-06 10:53 | DS ---
Physical Examination Vital Signs: Vital Signs Temperature 36.7 C 04/06/18 09:26 Pulse Rate 75 04/06/18 09:26 Respiratory Rate 16 04/06/18 09:26 Blood Pressure 119/63 04/06/18 09:26 O2 Sat by Pulse Oximetry (%) 95 04/05/18 21:00 Constitutional: Yes: Well Nourished, No Distress, Calm Cardiovascular: Yes: Regular Rate and Rhythm. No: Gallop, Murmur, Rub Respiratory: Yes: Regular, CTA Bilaterally. No: Rales, Rhonchi, Wheezes Gastrointestinal: Yes: Normal Bowel Sounds, Soft. No: Distention, Tenderness Extremities: Yes: WNL Edema: No Labs: CBC, BMP 04/06/18 05:30 04/06/18 05:30 Discharge Summary Reason For Visit: ACUTE ON CHRONIC CONGESTIVE HEART FAILURE Current Active Problems Benign localized hyperplasia of prostate with urinary retention (Acute) CHF (congestive heart failure) (Acute) CHF exacerbation (Acute) Heart failure, systolic, with acute decompensation (Acute) Obstructive uropathy (Acute) Hospital Course: (1) Urinary tract infection Code(s): N39.0 - URINARY TRACT INFECTION, SITE NOT SPECIFIED Qualifiers: Urinary tract infection type: acute cystitis Hematuria presence: without hematuria Qualified Code(s): N30.00 - Acute cystitis without hematuria (2) Obstructive uropathy Code(s): N13.9 - OBSTRUCTIVE AND REFLUX UROPATHY, UNSPECIFIED (3) Acute kidney injury Code(s): N17.9 - ACUTE KIDNEY FAILURE, UNSPECIFIED (4) CKD (chronic kidney disease) Code(s): N18.9 - CHRONIC KIDNEY DISEASE, UNSPECIFIED Qualifiers: Chronic kidney disease stage: stage 3 (moderate) Qualified Code(s): N18.3 - Chronic kidney disease, stage 3 (moderate) (5) Atrial fibrillation Code(s): I48.91 - UNSPECIFIED ATRIAL FIBRILLATION Qualifiers: Atrial fibrillation type: chronic Qualified Code(s): I48.2 - Chronic atrial fibrillation (6) CAD (coronary artery disease) Code(s): I25.10 - ATHSCL HEART DISEASE OF [place] CORONARY ARTERY W/O ANG PCTRS (7) Diabetes Code(s): E11.9 - TYPE 2 DIABETES MELLITUS WITHOUT COMPLICATIONS Qualifiers: Diabetes mellitus type: type 2 Diabetes mellitus complication status: with kidney complications Diabetes mellitus complication detail: with chronic kidney disease Chronic kidney disease stage: stage 4 (severe) (8) CHF (congestive heart failure) Code(s): I50.9 - HEART FAILURE, UNSPECIFIED Qualifiers: Heart failure type: systolic Heart failure chronicity: chronic Qualified Code(s): I50.22 - Chronic systolic (congestive) heart failure Mr Perez is a 77 year old male who came in with obstructive uropathy and UTI. He was admitted to the hospital and a damian was placed. He was started on rocephin and urine cultures were sent. They came back positive for strep viridans, which is sensitive to cephalosporins. Urology saw the patient and he was started on both tamsulosin and finasteride. He will be discharged with the damian and follow up in two weeks for possible removal. He had JOHN on CKD and was seen by nephrology. Relief of obstruction caused a return to baseline. He was put on levemir here and SSI secondary to rocephin being in D5W and causing a rise in his glucose. He can resume his home regimen. His milrinone was continued and he was monitored by cardiology. Currently he is doing well and stable for discharge on oral cephalosporins. 37 minutes spent in preparation of this discharge Condition: Stable - Instructions Diet, Activity, Other Instructions: resume previous diet and activity. discharge with damian in place, to follow up with urology in 2 weeks for trial of void. Referrals: Tommy Collier MD [Staff Physician] - Raleigh Hilliard MD [Staff Physician] - Khang Lopez MD [Primary Care Provider] - 1 Week Disposition: VNS/HOME HEALTH CARE - Home Medications Comprehensive Discharge Medication List: Ambulatory Orders Allopurinol [Zyloprim -] 100 mg PO DAILY 09/10/15 Atorvastatin Ca [Lipitor] 40 mg PO HS 09/10/15 Carvedilol 6.25 mg PO BID 09/10/15 Docusate Sodium [Colace -] 100 mg PO BID 09/10/15 Milrinone Lactate/D5w [Milrinone 0.2 mg/ml in D5w] 0.5 mg IV DAILY 09/10/15 Ranitidine [Zantac -] 75 mg PO DAILY 09/10/15 Albuterol 0.083% Nebulizer Jewell [Ventolin 0.083% Nebulizer Soln -] 1 amp NEB Q6H PRN #120 amp 09/14/15 Ferrous Sulfate [Feosol] 325 mg PO Q48H ud 04/23/16 Ascorbic Acid [Vitamin C -] 1,000 mg PO DAILY 11/24/16 Cholecalciferol (Vitamin D3) [Vitamin D -] 1,000 unit PO DAILY 11/24/16 Multivitamin [Poly-Vitamin] 1 each PO DAILY 11/24/16 Budesonide/Formeterol Fumarate [SYMBICORT 160/4.5mcg -] 1 inh PO BID 02/17/17 Torsemide [Demadex -] 20 mg PO BID 02/17/17 Aspirin 81 mg PO DAILY 09/30/17 Cholecalciferol (Vitamin D3) [Vitamin D -] 1,000 unit PO DAILY 09/30/17 Levothyroxine [Synthroid -] 25 mcg PO DAILY 09/30/17 Warfarin Na [Coumadin -] 4 mg PO ASDIR 09/30/17 Bupropion HCl [Wellbutrin -] 75 mg PO DAILY #0 tablet 10/02/17 Aspirin Coated [Ecotrin -] 81 mg PO DAILY tablet.ec 10/05/17 Cephalexin Monohydrate [Keflex -] 500 mg PO BID #20 capsule 04/06/18 Finasteride [Proscar -] 5 mg PO DAILY #30 tablet 04/06/18 Tamsulosin HCl [Flomax -] 0.4 mg PO DAILY@0830 #30 cap.er.24h 04/06/18
--- NOTE | 2018-04-06 11:09 | PN ---
Progress Note (short form) - Note Progress Note: cc: SOB S: no sob cp dizzy palps edema Vital Signs Period Temp Pulse Resp BP Sys/Orantes Pulse Ox Last 24 Hr 97.6 F-99.2 F 75-77 16-20 100-119/54-70 95 Constitutional: Yes: Well Nourished, No Distress Eyes: No: Sclera Icterus HENT: No: Nasal Congestion Respiratory: Yes: CTA Bilaterally, Rales (R base). No: Accessory Muscle Use Gastrointestinal: Yes: Normal Bowel Sounds. No: Distention, Hepatomegaly, Palpable Mass, Tenderness Cardiovascular: Yes: Regular Rate and Rhythm JVD: Yes Heart Sounds: Yes: S1, S2. No: Gallop Murmur: No: Systolic Murmur, Diastolic Murmur Extremities: No: Cool, Cyanosis Edema: No Integumentary: No: Jaundice Neurological: Yes: Alert, Oriented (x3) Psychiatric: No: Agitated Current Medications Generic Name Dose Route Start Last Admin Trade Name Freq PRN Reason Stop Dose Admin Albuterol Sulfate 1 amp 04/02/18 01:12 04/06/18 07:48 Ventolin 0.083% Nebulizer Soln - NEB 1 amp Q6H PRN Administration SHORT OF BREATH/WHEEZING Allopurinol 100 mg 04/02/18 10:00 04/06/18 09:28 Zyloprim - PO 100 mg DAILY [facility] Administration Ascorbic Acid 1,000 mg 04/02/18 10:00 04/06/18 09:29 Vitamin C - PO 1,000 mg DAILY [facility] Administration Aspirin 81 mg 04/02/18 10:00 04/06/18 09:28 Asa - PO 81 mg DAILY [facility] Administration Atorvastatin Calcium 40 mg 04/02/18 02:15 04/05/18 21:25 Lipitor - PO 40 mg HS [facility] Administration Budesonide/Formoterol Fumarate 1 puff 04/02/18 02:15 04/06/18 09:29 Symbicort 160/4.5mcg - IH 1 puff BID [facility] Administration Bupropion HCl 75 mg 04/02/18 10:00 04/06/18 09:29 Wellbutrin - PO 75 mg DAILY [facility] Administration Carvedilol 6.25 mg 04/02/18 02:15 04/06/18 09:28 Coreg - PO 6.25 mg BID [facility] Administration Cephalexin HCl 500 mg 04/06/18 10:00 04/06/18 09:27 Keflex - PO 04/16/18 09:59 500 mg BID [facility] Administration Cholecalciferol 1,000 unit 04/02/18 10:00 04/06/18 09:28 Vitamin D3 - PO 1,000 unit DAILY [facility] Administration Docusate Sodium 100 mg 04/02/18 02:15 04/06/18 09:27 Colace - PO 100 mg BID [facility] Administration Ferrous Sulfate 325 mg 04/02/18 10:00 04/06/18 09:28 Feosol - PO 325 mg Q2D@1000 [facility] Administration Finasteride 5 mg 04/05/18 10:00 04/06/18 09:27 Proscar - PO 5 mg DAILY [facility] Administration Milrinone Lactate/Dextrose 20,000 mcg in 100 mls @ 12.927 mls/hr 04/03/18 15: 00 04/06/18 01:47 Milrinone 20mg/100ml Ivpb - IVPB 0.5 mcg/kg/min TITR [facility] 12.927 mls/hr Administration 0.5 MCG/KG/MIN Insulin Aspart 1 vial 04/05/18 16:30 04/06/18 06:15 Novolog Vial Sliding Scale - SQ 4 units ACHS [facility] Administration Protocol Insulin Detemir 10 units 04/05/18 22:00 04/05/18 21:25 Levemir Vial SQ 10 units HS [facility] Administration Levothyroxine Sodium 25 mcg 04/02/18 07:00 04/06/18 06:15 Synthroid - PO 25 mcg DAILY@0700 [facility] Administration Multivitamins/Minerals/Vitamin C 1 tab 04/02/18 10:00 04/06/18 09:29 Tab-A-Vit - PO 1 tab DAILY [facility] Administration Ranitidine HCl 75 mg 04/02/18 10:00 04/06/18 09:28 Zantac - PO 75 mg DAILY [facility] Administration Tamsulosin HCl 0.4 mg 04/05/18 08:30 04/06/18 08:02 Flomax - PO 0.4 mg DAILY@0830 [facility] Administration Torsemide 20 mg 04/02/18 15:15 04/06/18 06:15 Demadex - PO 20 mg BIDLASIX [facility] Administration CBC, BMP 04/06/18 05:30 04/06/18 05:30 Assessment/Plan Echo 05/2016: sev lve, global hk, sev dec lvef, mild rve, nl rv fcn, estefania, mild- mod mr, mv ring, tv ring, mild tr, mild pr, mild phtn, ivc mild dil CXR: interstitial and alveolar opacities kandi-hilar predominance, + cephalization, no effusions--no change vs 10/15 ECG: V-paced tele: vp informatics a/p: 76 year old man with PMH of IDDM, COPD (O2 dependant) HTN, HLD, Afib (on coumadin), CAD s/p CABG 2012, end stage CHF with ICD placement (on milrinone pump), PVD, BPH here with increased sob/leg swelling. chronic systolic CHF stage D, s/p ICD, on home milrinone infusion: - pt had cardiomems PAP monitor implant with dr harden ([facility]) and has been managed by him since last admit here. - on destination therapy home milrinone infusion, continue milrinone 0.5 mcg/kg/ min - weight stable, BNP stable, CXR unchanged, euvolemic on exam, unlikely CHF exacerbation - currently on torsemide 20 mg BID. discussed with , torsemide dose frequently changed due to renal function, was on 40 mg daily the week prior to last and last week was on 20 mg daily alternating with 20 mg BID - Cr stable, continue current dose of torsemide 60 mg daily JOHN on CKD, h/o cardiorenal syndrome: - recent outpt creat ranging 2.6-2.9 range - BUN/Cr improving after damian placement, no acute process on renal ultrasound - Nephrology and urology consulted, appreciate recs - no absolute contraindication for flomax or proscar, however with flomax would need to monitor closely for hypotension or arrhythmia afib - rate controlled on coreg - cont coumadin per INR (target 2-3) CAD s/p SD with PCI (and ? TV repair at that time): - No anginal symptoms, no signs acs - Con't home ac PLUS asa, atorvastatin, coreg PVD - con't AC, statin. HTN: -controlled on coreg cardiac shrestha stable for dc
--- NOTE | 2018-04-06 12:45 | PN ---
Progress Note, Physician Chief Complaint: The patient seen in his room. Sitting on his bed. No new complaints. No chest pain. Maintains good urine output. Montes catheter in place. History of Present Illness: 77 year old gentleman with PMhx of CKD stage 4, End-stage HF on home milrinone infusion, Afib on Coumadin, CAD, COPD who presented with SOB and difficulty voiding and found to have acute HF with JOHN in setting of obstruction. - Current Medication List Current Medications: Active Medications Albuterol Sulfate (Ventolin 0.083% Nebulizer Soln -) 1 amp NEB Q6H PRN PRN Reason: SHORT OF BREATH/WHEEZING Last Admin: 04/06/18 07:48 Dose: 1 amp Allopurinol (Zyloprim -) 100 mg PO DAILY [facility] Last Admin: 04/06/18 09:28 Dose: 100 mg Ascorbic Acid (Vitamin C -) 1,000 mg PO DAILY [facility] Last Admin: 04/06/18 09:29 Dose: 1,000 mg Aspirin (Asa -) 81 mg PO DAILY [facility] Last Admin: 04/06/18 09:28 Dose: 81 mg Atorvastatin Calcium (Lipitor -) 40 mg PO HS [facility] Last Admin: 04/05/18 21:25 Dose: 40 mg Budesonide/Formoterol Fumarate (Symbicort 160/4.5mcg -) 1 puff IH BID [facility] Last Admin: 04/06/18 09:29 Dose: 1 puff Bupropion HCl (Wellbutrin -) 75 mg PO DAILY [facility] Last Admin: 04/06/18 09:29 Dose: 75 mg Carvedilol (Coreg -) 6.25 mg PO BID [facility] Last Admin: 04/06/18 09:28 Dose: 6.25 mg Cephalexin HCl (Keflex -) 500 mg PO BID [facility] Stop: 04/16/18 09:59 Last Admin: 04/06/18 09:27 Dose: 500 mg Cholecalciferol (Vitamin D3 -) 1,000 unit PO DAILY [facility] Last Admin: 04/06/18 09:28 Dose: 1,000 unit Docusate Sodium (Colace -) 100 mg PO BID [facility] Last Admin: 04/06/18 09:27 Dose: 100 mg Ferrous Sulfate (Feosol -) 325 mg PO Q2D@1000 [facility] Last Admin: 04/06/18 09:28 Dose: 325 mg Finasteride (Proscar -) 5 mg PO DAILY [facility] Last Admin: 04/06/18 09:27 Dose: 5 mg Milrinone Lactate/Dextrose (Milrinone 20mg/100ml Ivpb -) 20,000 mcg in 100 mls @ 12.927 mls/hr IVPB TITR [facility] Last Admin: 04/06/18 01:47 Dose: 0.5 mcg/kg/min, 12.927 mls/hr Insulin Aspart (Novolog Vial Sliding Scale -) 1 vial SQ ACHS [facility]; Protocol Last Admin: 04/06/18 11:39 Dose: 8 units Insulin Detemir (Levemir Vial) 10 units SQ HS [facility] Last Admin: 04/05/18 21:25 Dose: 10 units Levothyroxine Sodium (Synthroid -) 25 mcg PO DAILY@0700 [facility] Last Admin: 04/06/18 06:15 Dose: 25 mcg Multivitamins/Minerals/Vitamin C (Tab-A-Vit -) 1 tab PO DAILY [facility] Last Admin: 04/06/18 09:29 Dose: 1 tab Ranitidine HCl (Zantac -) 75 mg PO DAILY [facility] Last Admin: 04/06/18 09:28 Dose: 75 mg Tamsulosin HCl (Flomax -) 0.4 mg PO DAILY@0830 [facility] Last Admin: 04/06/18 08:02 Dose: 0.4 mg Torsemide (Demadex -) 20 mg PO BIDLASIX [facility] Last Admin: 04/06/18 06:15 Dose: 20 mg - Objective Vital Signs: Vital Signs Temperature 98.1 F 04/06/18 09:26 Pulse Rate 75 04/06/18 09:26 Respiratory Rate 16 04/06/18 09:26 Blood Pressure 119/63 04/06/18 09:26 O2 Sat by Pulse Oximetry (%) 95 04/06/18 09:00 Constitutional: Yes: No Distress Eyes: Yes: Conjunctiva Clear HENT: Yes: Normocephalic Neck: Yes: Trachea Midline Cardiovascular: Yes: S1, S2 Respiratory: Yes: CTA Bilaterally, Diminished Gastrointestinal: Yes: Normal Bowel Sounds, Soft Edema: Yes Edema: LLE: 1+, RLE: 1+ Neurological: Yes: Alert, Oriented Labs: CBC, BMP 04/06/18 05:30 04/06/18 05:30 INR, PTT INR 2.32 (0.83-1.09) H 04/06/18 05:30 Problem List - Problems (1) Chronic kidney disease, stage 4 (severe) Code(s): N18.4 - CHRONIC KIDNEY DISEASE, STAGE 4 (SEVERE) (2) Benign localized hyperplasia of prostate with urinary retention Code(s): N40.1 - BENIGN PROSTATIC HYPERPLASIA WITH LOWER URINARY TRACT SYMP (3) CHF (congestive heart failure) Code(s): I50.9 - HEART FAILURE, UNSPECIFIED Qualifiers: Heart failure type: systolic Heart failure chronicity: chronic Qualified Code(s): I50.22 - Chronic systolic (congestive) heart failure (4) Heart failure, systolic, with acute decompensation Code(s): I50.23 - ACUTE ON CHRONIC SYSTOLIC (CONGESTIVE) HEART FAILURE (5) Obstructive uropathy Code(s): N13.9 - OBSTRUCTIVE AND REFLUX UROPATHY, UNSPECIFIED (6) Acute and chronic respiratory failure ([id number]) Code(s): J96.20 - ACUTE AND CHR RESP FAILURE, UNSP W HYPOXIA OR HYPERCAPNIA Qualifiers: Respiratory failure complication: hypoxia Qualified Code(s): J96.21 - Acute and chronic respiratory failure with hypoxia (7) Acute kidney injury Code(s): N17.9 - ACUTE KIDNEY FAILURE, UNSPECIFIED (8) Atrial fibrillation Code(s): I48.91 - UNSPECIFIED ATRIAL FIBRILLATION Qualifiers: Atrial fibrillation type: chronic Qualified Code(s): I48.2 - Chronic atrial fibrillation (9) CAD (coronary artery disease) Code(s): I25.10 - ATHSCL HEART DISEASE OF [place] CORONARY ARTERY W/O ANG PCTRS (10) CHF (congestive heart failure) Code(s): I50.9 - HEART FAILURE, UNSPECIFIED Qualifiers: Qualified Code(s): I50.32 - Chronic diastolic (congestive) heart failure (11) CKD (chronic kidney disease) Code(s): N18.9 - CHRONIC KIDNEY DISEASE, UNSPECIFIED Qualifiers: Chronic kidney disease stage: stage 3 (moderate) Qualified Code(s): N18.3 - Chronic kidney disease, stage 3 (moderate) (12) COPD (chronic obstructive pulmonary disease) Code(s): J44.9 - CHRONIC OBSTRUCTIVE PULMONARY DISEASE, UNSPECIFIED (13) Diabetes Code(s): E11.9 - TYPE 2 DIABETES MELLITUS WITHOUT COMPLICATIONS Qualifiers: Diabetes mellitus type: type 2 Diabetes mellitus complication status: with kidney complications Diabetes mellitus complication detail: with chronic kidney disease Chronic kidney disease stage: stage 4 (severe) Assessment/Plan 77 year old gentleman with PMhx of CKD stage 4, End-stage HF on home milrinone infusion, Afib on Coumadin, CAD, COPD who presented with SOB and difficulty voiding and found to have acute HF with JOHN in setting of obstruction. #JOHN secondary to bladder outlet obstruction #CKD stage 4 #Chronic Endstage LV failure #Anemia Renal function stable at this time Will continue torsemide BID and trend daily weights Will continue Proscar/Flomax Maintain indwelling Montes until outpatient follow up urology follow up as outpatient Thanks again, Mei Piña MD
[2018-04-07 04:32] VITALS: BMI 25.6
== END 2018-04-06 14:44 | disposition home health service (06) | DRG 683 ==
LOC: JER 21:17 → JERBED 04-02 01:11 → J4W 04-03 03:25
PROVIDERS: ADMIT Internal Medicine; ATTEND Internal Medicine
PROC: 0T9B70Z Drainage of Bladder with Drainage Device, Via Natural or Artificial Opening (ICD-10-PCS; principal; 2018-04-02)
DX: N17.9 Acute kidney failure, unspecified (principal); N13.8 Other obstructive and reflux uropathy; I13.0 Hypertensive heart and chronic kidney disease with heart failure and stage 1 through stage 4 chronic kidney disease, or unspecified chronic kidney disease; I50.22 Chronic systolic (congestive) heart failure; K72.10 Chronic hepatic failure without coma; I48.2 Chronic atrial fibrillation; N40.1 Benign prostatic hyperplasia with lower urinary tract symptoms; I25.10 Atherosclerotic heart disease of native coronary artery without angina pectoris; E78.5 Hyperlipidemia, unspecified; J44.9 Chronic obstructive pulmonary disease, unspecified; D64.9 Anemia, unspecified; Z95.810 Presence of automatic (implantable) cardiac defibrillator; Z79.01 Long term (current) use of anticoagulants; Z79.4 Long term (current) use of insulin; I25.2 Old myocardial infarction; Z87.891 Personal history of nicotine dependence; I25.5 Ischemic cardiomyopathy; I27.20 Pulmonary hypertension, unspecified; Z99.81 Dependence on supplemental oxygen; I73.9 Peripheral vascular disease, unspecified; E11.22 Type 2 diabetes mellitus with diabetic chronic kidney disease; N18.4 Chronic kidney disease, stage 4 (severe); I50.84 End stage heart failure; R31.0 Gross hematuria
CPT/HCPCS: 36415; 36600; 71045-TC-FY; 76775-TC; 80048; 80053; 81003; 81015; 82550; 82803; 82962; 83036; 83735; 83880; 84100; 84484; 85025; 85610; 87040; 87077; 87086; 93005; 93010; 94640; 99285-25